=== PATIENT | male | born 1975 | race Hispanic/Latino ===

== ENCOUNTER 2017-06-12 11:13 | Outpatient (CLI) | payer MEDICARE ==
[~2017-06-12 11:13] MED LIST: Sodium Chloride 0.9% 15 ML NEB ONE
--- NOTE | 2017-06-12 16:05 | PRG ---
DATE OF SERVICE: 06/12/2017 HISTORY: Mr. Wilbert Ayala is a very pleasant 42-year-old gentleman who presents to the Wound Center for evaluation of an ulceration of the plantar surface of the left forefoot. The patient was recen tly seen by Dr. Joel Collins of Infectious Diseases. The patient states that IV antibiotics have b een discontinued. Apparently, plain films were reviewed at that time the patient was seen by Infect ious Diseases. Since the patient's last visit to the Wound Center, Mr. Ayala was admitted to [facility] with volume overload, which resolved with [id number] dialysis. The p atient states that he continues to receive dressing changes with the assistance of Home Health. The patient was previously seen by the radio time salesperson for fitting with diabetic shoes with inserts. PHYSICAL EXAMINATION: VITAL SIGNS: Temperature 98.0, pulse 100, respirations 18 and blood pressure 185/100. Accu-Chek 11 8. EXTREMITIES: An ulceration of the plantar surface of the left forefoot is still present. The dimen sions of the wound are approximately 0.9 x 0.8 cm. Purulent appearing drainage associated with the wound was sent for aerobic and anaerobic cultures. The sanguinous drainage associated with the woun d appeared to contain purulent material. The depth of the wound is approximately 2.6 cm on exam tod ay. No erythema of the skin surrounding the wound is present. No maceration of the skin of the per iwound is noted. Mild edema of the left foot is noted on exam today. ASSESSMENT AND PLAN: 1. Plantar ulceration of the left forefoot as described above. Dressing changes of Silverlon Rope 4 x 4s, Kerlix, and an Jae bandage will be initiated today. These dressing changes are to be perfor med 3 times per week after cleansing and irrigation with the assistance of Home Health. I have disc ussed the treatment plan with Dr. Joel Collins of Infectious Diseases. The patient will be seen in consultation by Dr. Collins next week. The patient will be contacted by the office of Dr. Collins in [facility] to the date and time of his appointment. I will see Mr. Ayala again after his evaluation by Infectious Diseases. 2. Diabetes mellitus. The patient's Accu-Chek in clinic today is 118. The patient has been remind ed that for optimal wound healing, his blood glucoses should remain below 150. 3. Hypertension. 4. End-stage renal disease. 5. Seizure disorder.
== END 2017-06-12 11:14 | disposition home or self-care (01) ==
LOC: WCC 11:13
PROVIDERS: ATTEND Family Medicine
DX: L97.529 Non-pressure chronic ulcer of other part of left foot with unspecified severity (principal); E11.621 Type 2 diabetes mellitus with foot ulcer; I12.0 Hypertensive chronic kidney disease with stage 5 chronic kidney disease or end stage renal disease; E11.22 Type 2 diabetes mellitus with diabetic chronic kidney disease; N18.6 End stage renal disease; G40.909 Epilepsy, unspecified, not intractable, without status epilepticus
CPT/HCPCS: 87070; 87075; 87077; 87205; 97139; G0463; 87186; 99213; A4218

== ENCOUNTER 2017-06-19 11:20 | Outpatient (CLI) | payer MEDICARE ==
--- NOTE | 2017-06-19 13:53 | PRG ---
DATE OF SERVICE: 06/19/2017 HISTORY: Mr. Wilbert Ayala is a very pleasant 42-year-old gentleman, who presents to the [facility] for evaluation of an ulceration of the plantar surface of the left forefoot. The patient stated a t the time of his last visit that IV antibiotics have been discontinued by Dr. Joel Collins of Infe ctious Diseases. The patient was receiving IV antibiotics at dialysis. Arrangements were made for the patient to be seen by Dr. Collins. Unfortunately, the patient failed to keep his appointment. Th e patient continues to receive dressing changes with the assistance of Home Health. The patient has also been seen by the tire design engineer for fitting with diabetic shoes with inserts. PHYSICAL EXAMINATION: VITAL SIGNS: Temperature 97.6, pulse 95, respirations 18, blood pressure 185/105. Accu-Chek 108. EXTREMITIES: An ulceration of the plantar surface of the left forefoot is still present. The dimen sions of the wound are approximately 0.6 x 0.6 cm. The depth of the wound is approximately 1.6 cm o n exam today. The depth of the wound at the time of the patient's last visit was approximately 2.6 cm. The dimensions of the wound at the time of the patient's last visit were approximately 0.9 x 0. 8 cm. Granulation tissue is present within the wound margins. No purulent drainage is associated w ith the wound on today's exam. No erythema of the skin surrounding the wound is present. No macera tion of the skin of the periwound is noted. No significant edema of the left foot is present on exa m today. ASSESSMENT AND PLAN: 1. Plantar ulceration of left forefoot as described above. Dressing changes of Silverlon Rope 4 x 4s, Kerlix, and an Jae bandage will be continued 3 times per week after cleansing and irrigation wit h the assistance of Home Health. Arrangements will be made again for the patient to be seen in cons ultation by Dr. Joel Collins of Infectious Diseases. The patient's mother or sister will be contac pratima in regard to the date and time of the patient's appointment with Dr. Collins. I will see Mr. Ctay atkins again after his evaluation by Infectious Diseases. 2. Diabetes mellitus. The patient's Accu-Chek in clinic today is 108. The patient has been remind ed that for optimal wound healing, his blood glucoses should remain below 150. 3. Hypertension. 4. End-stage renal disease. 5. Seizure disorder.
[2017-06-19] MEDS ORDERED: Sodium Chloride 0.9% 15 ML NEB ONE (16:24)
== END 2017-06-19 11:21 | disposition home or self-care (01) ==
LOC: WCC 11:20
PROVIDERS: ATTEND Family Medicine
DX: E11.621 Type 2 diabetes mellitus with foot ulcer (principal); L97.429 Non-pressure chronic ulcer of left heel and midfoot with unspecified severity; E11.22 Type 2 diabetes mellitus with diabetic chronic kidney disease; I12.0 Hypertensive chronic kidney disease with stage 5 chronic kidney disease or end stage renal disease; N18.6 End stage renal disease; R56.9 Unspecified convulsions
CPT/HCPCS: 97602; A4218

== ENCOUNTER 2017-07-17 11:37 | Outpatient (CLI) | payer MEDICARE ==
--- NOTE | 2017-07-17 17:08 | PRG ---
DATE OF SERVICE: 07/17/2017 HISTORY: Mr. Wilbert Ayala is a very pleasant 42-year-old gentleman who presents to the Wound Center for evaluation of an ulceration of the plantar surface of the left forefoot. The patient has completed a course of IV antibiotics as per Dr. Joel Collins of Infectious Diseases. Arrangements were made for the patient to be seen by Dr. Collins. Unfortunately, the patient has been unable to keep his appointment on 2 occasions. The patient continues to receive dressing changes with the assistance of Home Health. The patient has also been seen by the shoe lacer for fitting with diabetic shoes with inserts. PHYSICAL EXAMINATION: VITAL SIGNS: Temperature 97.6, pulse 90, respirations 18, blood pressure 197/ 103. Accu-Chek 98. EXTREMITIES: An ulceration of the plantar surface of the left forefoot is still present. The dimensions of the wound are approximately 0.9 x 0.9 cm. The dimensions of the wound at the time of the patient's last visit were approximately 0.6 x 0.6 cm. Callus, undermining, and desiccated tissue associated with the wound were eliminated with an excisional full-thickness debridement with the use of scissors. No purulent drainage is associated with the wound. No erythema of the skin surrounding the wound is present. No maceration of the skin of the periwound is noted. A dorsalis pedis pulse is palpable on the left and on the right. No significant edema of the left foot is present on exam today. ASSESSMENT AND PLAN: 1. Plantar ulceration of left forefoot as described above. Dressing changes of Silverlon, 4 x 4s, Kerlix, and an Jae bandage will be continued 3 times per week after cleansing and irrigation with the assistance of Home Health. The ulceration has markedly improved in its appearance since the patient's last visit. I will see Mr. Ayala again in 2 weeks. The patient is in the process of obtaining diabetic shoes with inserts. He, as stated above, has been seen by the shoe lacer. 2. Diabetes mellitus. The patient's Accu-Chek in clinic today is 98. The patient has been reminded that for optimal wound healing, his blood glucoses should remain below 150. 3. Hypertension. 4. End-stage renal disease. 5. Seizure disorder. [facility]
[2017-07-17] MEDS ORDERED: Sodium Chloride 0.9% 15 ML NEB ONE (17:53)
== END 2017-07-17 11:38 | disposition home or self-care (01) ==
LOC: WCC 11:37
PROVIDERS: ATTEND Family Medicine
DX: E11.621 Type 2 diabetes mellitus with foot ulcer (principal); L97.529 Non-pressure chronic ulcer of other part of left foot with unspecified severity; E11.22 Type 2 diabetes mellitus with diabetic chronic kidney disease; I12.0 Hypertensive chronic kidney disease with stage 5 chronic kidney disease or end stage renal disease; R56.9 Unspecified convulsions
CPT/HCPCS: 11042; A4218

== ENCOUNTER 2017-08-14 13:20 | Outpatient (CLI) | payer MEDICARE ==
--- NOTE | 2017-08-14 14:42 | PRG ---
DATE OF SERVICE: 08/14/2017 HISTORY: Mr. Wilbert Ayala is a very pleasant 42-year-old gentleman who presents to the Wound Center for evaluation of an ulceration of the plantar surface of the left forefoot. The patient has complet ed a course of IV antibiotics as per Dr. Joel Collins of Infectious Diseases. Arrangements were mad e for the patient to be seen by Dr. Collins; however. The patient was unable to keep his appointment o n 2 occasions. The patient continues to receive dressing changes with the assistance of Home Health. The patient has also been seen by the operations support manager for fitting with diabetic shoes with inserts. PHYSICAL EXAMINATION: VITAL SIGNS: Temperature 97.5, pulse 78, respirations 18, blood pressure 179/59. Accu-Chek 109. EXTREMITIES: An ulceration of the plantar surface of the left forefoot is still present. The dimens ions of the wound are approximately 0.5 x 0.3 cm. Callus associated with the wound was debrided with an excisional partial thickness debridement with the use of scissors. No purulent drainage is assoc iated with the wound. No erythema of the skin surrounding the wound is present. No maceration of th e skin of the periwound is noted. A dorsalis pedis pulse is palpable on the left. No significant ed manish of the left foot is present on exam today. ASSESSMENT AND PLAN: 1. Plantar ulceration of left forefoot as described above, callus associated with the wound was debr ided with an excisional partial thickness debridement with the use of scissors in clinic today. Dres sing changes by Home Health will be discontinued. The patient has been instructed to keep his newly healed wound clean and dry and covered with a diabetic sock. I will see Mr. Ayala in one week. At this time, the patient will also be seen by the operations support manager. 2. Diabetes mellitus. The patient's Accu-Chek in clinic today is 109. The patient has been reminde d that for optimal wound healing, his blood glucoses should remain below 150. 3. Hypertension. 4. End-stage renal disease. 5. Seizure disorder.
[2017-08-14] MEDS ORDERED: Sodium Chloride 0.9% 15 ML NEB ONE (17:25)
[2017-08-14] MEDS ORDERED: Lidocaine 2% Jelly 5 ML TUBE ONE (17:25)
== END 2017-08-14 13:21 | disposition home or self-care (01) ==
LOC: WCC 13:20
PROVIDERS: ATTEND Family Medicine
DX: E11.621 Type 2 diabetes mellitus with foot ulcer (principal); L97.429 Non-pressure chronic ulcer of left heel and midfoot with unspecified severity; E11.22 Type 2 diabetes mellitus with diabetic chronic kidney disease; I12.0 Hypertensive chronic kidney disease with stage 5 chronic kidney disease or end stage renal disease; N18.6 End stage renal disease; G40.909 Epilepsy, unspecified, not intractable, without status epilepticus
CPT/HCPCS: 97597; A4218

== ENCOUNTER 2017-10-31 16:55 | Emergency (ER) | payer MEDICARE, MEDICAID ==
[2017-10-31] MEDS ORDERED: ISOVUE-370 76%-LOCM 1 ML ONE (17:23)
[2017-10-31 17:56] LABS: Hemoglobin 14.3 g/dL (14.0-18.0); Mean Corpuscular HGB CONC 33.4 g/dL (32.0-36.0); Mean Platelet Volume 7.3 fL (7.4-10.4); Platelet Count 168 thou/uL (130-400); RBC Distribution Width 13.2 % (11.5-14.5); Red Blood Cell (RBC) Count 4.09 mill/uL (4.70-6.10); White Blood Cell (WBC) Count 4.8 thou/uL (4.8-10.8)
[2017-10-31 18:17] LABS: #Eosinphils 0.2 thou/uL (0.0-0.7); #Monocytes 0.4 thou/uL (0.11-0.59); #Neutrophils 3.2 thou/uL (1.40-6.50); %Basophils 0.4 % (0.0-1.0); %Eosinophils 4.9 % (0.0-10.0); %Monocytes 7.6 % (0.0-10.0); %Neutrophils 66.1 % (42.0-75.0); MDiff Complete? YES; Macrocytosis SLIGHT = 6-15 cells (100X) (0-5/hpf)
[2017-10-31 18:22] LABS: CKMB 2.4 ng/mL (0-6.6); Troponin I 0.044 ng/mL (< 0.028)
[2017-10-31 18:36] LABS: ALT (SGPT) 16 U/L (8-55); AST (SGOT) 19 U/L (5-34); Albumin 4.2 g/dL (3.5-5.0); Alkaline Phosphatase 157 U/L (40-150); Anion Gap 15 mmol/L (10-20); BUN (Urea Nitrogen) 28 mg/dL (8.9-20.6); Bilirubin, Total 0.6 mg/dL (0.2-1.2); CK (CPK) 115 U/L (30-200); Calc. Creatinine Clearance 0 mL/min (70-130); Calcium 9.6 mg/dL (7.8-10.44); Carbon Dioxide 33 mmol/L (22-29); Chloride 96 mmol/L (98-107); Estimated GFR-MDRD 14; Globulin 4.1 g/dL (2.4-3.5); Glucose 106 mg/dL (70-105); Lipase 33 U/L (8-78); Potassium 4.9 mmol/L (3.5-5.1); Protein, Total 8.3 g/dL (6.0-8.3); Sodium 139 mmol/L (136-145)
--- NOTE | 2017-10-31 18:54 | RAD ---
FRONTAL VIEW CHEST 10/31/17 COMPARISON: 05/22/17 INDICATION: Chest pain. FINDINGS: There is no new consolidation, effusion, or pneumothorax. Lungs are grossly stable appearing to 7 exam. Cardiac silhouette is accentuated by portable technique. IMPRESSION: Stable chest without new consolidation. The previously mentioned interstitial opacities are grossly s table. POS: [facility]
[2017-10-31] MEDS ORDERED: hydrALAZINE 20 MG/ML VIAL ONE (19:26)
[2017-10-31] MEDS ORDERED: Acetaminophen 500 MG TAB ONE (19:26)
--- NOTE | 2017-10-31 20:47 | CT ---
ABDOMEN AND PELVIS CT WITH CONTRAST 10/31/17 INDICATION; Hypertension, abdominal pain. FINDINGS: No prior comparison is available. No significant pathology of the imaged lung bases. There is a small peripherally oriented calcificati on which may be vascular in etiology at the posteromedial left lung base. There is a mild generalized heterogeneous enhancement of the liver, nonspecific. Punctate granulomatous calcification of the spl een present. There are vascular calcifications of the kidneys as well of the splenic arteries and sca ttered about the aorta and branch vessels. The kidneys are atrophic without hydronephrosis. No adrena l mass. No peripancreatic inflammation. There is incomplete assessment of the bowel without enteric c ontrast. There is moderate retained fecal material throughout the colon. There is an inferior vena ca va filter in place, infrarenal in location. No free air visualized. There is wall prominence of the u rinary bladder. Mild soft tissue edema is seen overlying each greater trochanter. IMPRESSION: 1. Wall thickening of the urinary bladder. Recommend clinical correlation and urinary laboratory values to exclude possibility of cystitis. 2. Incomplete assessment of the bowel. 3. Mild heterogeneity of the liver. Correlate with liver function enzymes. 4. Diffuse vascular disease in a pattern predominantly indicative of arteriosclerosis. POS: [facility]
--- NOTE | 2017-11-08 17:05 | EKG ---
Test Reason : Blood Pressure : / mmHG Vent. Rate : 066 BPM Atrial Rate : 066 BPM P-R Int : 170 ms QRS Dur : 088 ms QT Int : 440 ms P-R-T Axes : 069 -07 083 degrees QTc Int : 461 ms Normal sinus rhythm Possible Left atrial enlargement Left ventricular hypertrophy Abnormal ECG Confirmed by KATHLEEN KITCHEN D.O. ([id number]), material expeditor SEPIDEH MCLEOD ([id number]) on 11/08/2017 5:04:15 PM Referred By: Confirmed By:KATHLEEN KITCHEN D.O.
== END 2017-10-31 21:28 | disposition home or self-care (01) ==
LOC: ERS 16:55
DX: I12.0 Hypertensive chronic kidney disease with stage 5 chronic kidney disease or end stage renal disease (principal); E11.22 Type 2 diabetes mellitus with diabetic chronic kidney disease; N18.6 End stage renal disease; B35.4 Tinea corporis; Z89.421 Acquired absence of other right toe(s); Z99.2 Dependence on renal dialysis; Z79.899 Other long term (current) drug therapy
CPT/HCPCS: 71045; 74177; 80053; 82550; 82553; 83690; 84484; 85025; 93005; 96374; J0360

== ENCOUNTER 2017-11-03 16:36 | Emergency (ER) | payer MEDICARE ==
[2017-11-03] MEDS ORDERED: Acetaminophen 325 MG TAB ONE (18:06)
== END 2017-11-03 20:00 | disposition home or self-care (01) ==
LOC: ERS 16:36
DX: S01.512A Laceration without foreign body of oral cavity, initial encounter (principal); G40.909 Epilepsy, unspecified, not intractable, without status epilepticus; E11.9 Type 2 diabetes mellitus without complications; Z79.4 Long term (current) use of insulin; Z79.899 Other long term (current) drug therapy
CPT/HCPCS: 36415; 80185; 94760

== ENCOUNTER 2017-11-13 10:13 | Outpatient (CLI) | payer MEDICARE ==
--- NOTE | 2017-11-13 12:21 | PRG ---
DATE OF SERVICE: 11/13/2017 HISTORY: Mr. Wilbert Ayala is a very pleasant 42-year-old gentleman who presents to the Wound Center for evaluation of an ulceration of the plantar surface of the right forefoot. The patient was last s een in the Wound Center on 08/14/2017 for an ulceration of the plantar surface of the left forefoot. This ulceration has healed completely and remains healed. The patient states he has not yet receive d his diabetic shoes with inserts. The patient has no other complaints today. He denies any fever o r chills. PHYSICAL EXAMINATION: VITAL SIGNS: Temperature 97.6, pulse 81, respirations 18, blood pressure 109/60. Accu-Chek 106. EXTREMITIES: An ulceration of the plantar surface of the right forefoot is present. Necrotic and no nviable tissue present within the wound margins was debrided with an excisional full-thickness debrid ement with the use of scissors. A small amount of purulent drainage is associated with the wound, wh ich was sent for aerobic and anaerobic cultures. No erythema of the skin surrounding the wound is pr esent. No maceration of the skin of the periwound is noted. A dorsalis pedis pulse is easily palpab le on the right. No significant edema of the right foot is present on exam today. ASSESSMENT AND PLAN: 1. Plantar ulceration of right forefoot as described above. Dressing changes of Silverlon and borde red gauze will be initiated today. These dressing changes are to be performed 3 times per week after cleansing and irrigation with the assistance of Home Health. I will see Mr. Ayala again on 018. At this time, the patient will also be seen by the religious activities director. 2. Diabetes mellitus. The patient's Accu-Chek in clinic today is 106. The patient has been reminde d that for optimal wound healing, his blood glucoses should remain below 150. 3. Hypertension. 4. End-stage renal disease. 5. Seizure disorder.
== END 2017-11-13 10:14 | disposition home or self-care (01) ==
LOC: WCC 10:13
PROVIDERS: ATTEND Family Medicine
DX: E11.621 Type 2 diabetes mellitus with foot ulcer (principal); L97.419 Non-pressure chronic ulcer of right heel and midfoot with unspecified severity; E11.22 Type 2 diabetes mellitus with diabetic chronic kidney disease; I12.0 Hypertensive chronic kidney disease with stage 5 chronic kidney disease or end stage renal disease; N18.6 End stage renal disease; G40.909 Epilepsy, unspecified, not intractable, without status epilepticus
CPT/HCPCS: 87070; 87077; 87186; 87205

== ENCOUNTER 2017-12-28 22:06 | Emergency (ER) | payer MEDICARE ==
--- NOTE | 2017-12-28 23:36 | RAD ---
SINGLE VIEW OF THE PELVIS: Comparison: None. History: Right hip pain. FINDINGS: Single view of the pelvis shows no evidence of acute fracture or dislocation. No degenerative changes are seen in the hip. No focal soft tissue swelling is seen. Vascular calcifications are present. IMPRESSION: No evidence of acute osseous abnormality. POS: [facility]
[2017-12-29 01:05] LABS: #Eosinphils 0.1 thou/uL (0.0-0.7); #Lymphocytes 1.3 thou/uL (1.20-3.40); #Monocytes 0.5 thou/uL (0.11-0.59); #Neutrophils 3.4 thou/uL (1.40-6.50); %Basophils 0.4 % (0.0-1.0); %Eosinophils 2.4 % (0.0-10.0); %Lymphocytes 24.2 % (21.0-51.0); %Monocytes 8.6 % (0.0-10.0); %Neutrophils 64.4 % (42.0-75.0); Hemoglobin 9.5 g/dL (14.0-18.0); Mean Corpuscular HGB CONC 32.9 g/dL (32.0-36.0); Platelet Count 222 thou/uL (130-400); RBC Distribution Width 14.9 % (11.5-14.5); Red Blood Cell (RBC) Count 2.81 mill/uL (4.70-6.10); White Blood Cell (WBC) Count 5.3 thou/uL (4.8-10.8)
[2017-12-29 01:26] LABS: ALT (SGPT) 19 U/L (8-55); AST (SGOT) 10 U/L (5-34); Albumin 3.4 g/dL (3.5-5.0); Alkaline Phosphatase 142 U/L (40-150); Anion Gap 20 mmol/L (10-20); BUN (Urea Nitrogen) 62 mg/dL (8.9-20.6); Bilirubin, Total 0.4 mg/dL (0.2-1.2); Calc. Creatinine Clearance 0 mL/min (70-130); Calcium 8.9 mg/dL (7.8-10.44); Carbon Dioxide 24 mmol/L (22-29); Chloride 98 mmol/L (98-107); Estimated GFR-MDRD 6; Globulin 3.4 g/dL (2.4-3.5); Glucose 96 mg/dL (70-105); Potassium 4.9 mmol/L (3.5-5.1); Protein, Total 6.8 g/dL (6.0-8.3); Sodium 137 mmol/L (136-145)
[2017-12-29] MEDS ORDERED: Morphine 4 MG/ML VIAL ONE (01:35)
[2017-12-29] MEDS ORDERED: Ondansetron ODT 4 MG TAB ONE (04:21)
--- NOTE | 2017-12-29 09:08 | CT ---
PRELIMINARY REPORT/[facility]/EMERGENTY AFTER-HOURS PROCEDURE CT Pelvis With Intravenous Contrast EXAM DATE/TIME: Exam ordered 12/29/2017 1:44 AM CLINICAL HISTORY: 42 years old, male; Pain; Hip pain; Right hip TECHNIQUE: Axial computed tomography images of the pelvis with intravenous contrast. CONTRAST: 100 mL of ISOVUE administered intravenously. COMPARISON: No relevant prior studies available. FINDINGS: Bowel: Normal. No obstruction. No mucosal thickening. Appendix: No findings to suggest acute appendicitis. Intraperitoneal space: Normal. No free air. No significant fluid collection. Bladder: Normal. No mass. Reproductive: Unremarkable as visualized. Bones/joints: No acute fracture. No dislocation. Soft tissues: Normal. Vasculature: An inferior vena cava filter is present. Extensive vascular calcification is present. No lower abdominal aortic aneurysm. Lymph nodes: Normal. No enlarged lymph nodes. IMPRESSION: No acute RIGHT hip fracture or other pathology. Thank you for allowing us to participate in the care of your patient. Dictated and Authenticated by: Andrade Estrada MD 12/29/2017 2:21 AM Central Time ([place] & [place]) FINAL REPORT CT OF PELVIS PERFORMED WITH INTRAVENOUS CONTRAST ENHANCEMENT: HISTORY: Patient with right-sided hip pain. History of dialysis. FINDINGS: There are fairly extensive vascular calcifications. Bladder wall appears somewhat thickened. The pr ostate is not significantly enlarged. No significant pelvic lymphadenopathy noted. There are some minimal arthritic changes of the hip. There are no signs of any fracture. There is n o evidence for avascular necrosis. IMPRESSION: 1. No evidence of hip fracture. 2. Suggestion of some mild bladder wall thickening. 3. Extensive vascular calcifications. 4. This report is in agreement with the temporary report issued by [facility]. POS: [facility]
[2017-12-29] MEDS ORDERED: ISOVUE-370 76%-LOCM 1 ML ONE (15:48)
== END 2017-12-29 03:00 | disposition home or self-care (01) ==
LOC: ERS 22:06
DX: M25.551 Pain in right hip (principal); G89.29 Other chronic pain; E11.9 Type 2 diabetes mellitus without complications; Z99.2 Dependence on renal dialysis; Z79.4 Long term (current) use of insulin; Z79.899 Other long term (current) drug therapy
CPT/HCPCS: 36415; 72170; 72193; 80053; 85025; 86140; 96374; J2270; Q0162

== ENCOUNTER 2017-12-31 09:33 | Emergency (ER) | payer MEDICARE ==
[2017-12-31] MEDS ORDERED: Morphine 4 MG/ML VIAL ONE (11:34)
[2017-12-31] MEDS ORDERED: Acetaminophen 325 MG TAB ONE (11:35)
== END 2017-12-31 12:48 | disposition home or self-care (01) ==
LOC: ERS 09:33
DX: M25.551 Pain in right hip (principal); Z99.2 Dependence on renal dialysis; Z79.899 Other long term (current) drug therapy; E11.22 Type 2 diabetes mellitus with diabetic chronic kidney disease
CPT/HCPCS: 96374; J2270

== ENCOUNTER 2018-01-08 11:47 | Outpatient (CLI) | payer MEDICARE ==
--- NOTE | 2018-01-08 14:37 | PRG ---
DATE OF SERVICE: 01/08/2018 HISTORY: Mr. Wilbert Ayala is a very pleasant 42-year-old gentleman, who presents to the Wound Center for evaluation of a callus of the plantar surface of the right forefoot. The patient was previously seen in the Wound Center on 08/14/2017 for an ulceration of the plantar surface of the left forefoot . This ulceration has healed completely and remains healed. The patient states he is still in the p rocess of receiving his diabetic shoes with inserts. The patient has no other complaints today. He denies any fever or chills. PHYSICAL EXAMINATION: VITAL SIGNS: Temperature 97.5, pulse 77, respirations 16, blood pressure 187/92. Accu-Chek 108. EXTREMITIES: Callus over the plantar surface of the right forefoot is present, which measures approx imately 3.0 x 2.0 cm. The callus is located over the third and fourth metatarsal heads. Callus over lying the head of the third and fourth metatarsals was excised with a partial-thickness debridement w ith the use of scissors. No erythema of the skin of the plantar surface of the right foot is present . No maceration of the skin of the plantar surface of the right foot is present. A dorsalis pedis p ulse is palpable on the right. No significant edema of the right foot is present on exam today. ASSESSMENT AND PLAN: 1. Callus of the right forefoot as described above. The callus located over the head of the third a nd fourth metatarsals was excised with an excisional partial-thickness debridement with the use of sc issors in clinic today. For the wound of the plantar surface of the right foot subsequent to callus excision, dressing changes of Silverlon and bordered gauze are to be performed 3 times per week after cleansing and irrigation with the assistance of home health. I will see Mr. Ayala again in 2 weeks . As stated above, the patient is still in the process of obtaining diabetic shoes with inserts. 2. Diabetes mellitus. The patient's Accu-Chek in clinic today is 108. The patient has been reminde d that for optimal wound healing, his blood glucoses should remain below 150. 3. Hypertension. 4. End-stage renal disease. 5. Seizure disorder.
== END 2018-01-08 11:48 | disposition home or self-care (01) ==
LOC: WCC 11:47
PROVIDERS: ATTEND Family Medicine
DX: T81.89XD Other complications of procedures, not elsewhere classified, subsequent encounter (principal); M25.774 Osteophyte, right foot; E11.22 Type 2 diabetes mellitus with diabetic chronic kidney disease; I12.0 Hypertensive chronic kidney disease with stage 5 chronic kidney disease or end stage renal disease; N18.6 End stage renal disease; G40.909 Epilepsy, unspecified, not intractable, without status epilepticus
CPT/HCPCS: 97597

== ENCOUNTER 2018-01-22 11:02 | Outpatient (CLI) | payer MEDICARE ==
--- NOTE | 2018-01-22 14:33 | PRG ---
DATE OF SERVICE: 01/22/2018 HISTORY: Mr. Wilbert Ayala is a very pleasant 42-year-old gentleman who presents to the Wound Center for evaluation of an ulceration of the plantar surface of the left forefoot. The patient was last se en in the Wound Center on 01/08/2018 for callus on the plantar surface of the right forefoot. Again, the patient states he is still in the process of receiving his diabetic shoes with inserts. Mr. Phan murphy has no other complaints today. He denies any fever or chills. PHYSICAL EXAMINATION: VITAL SIGNS: Temperature 97.7, pulse 76, respirations 19, blood pressure 173/87. Accu-Chek 112. EXTREMITIES: An ulceration over the plantar surface of the left forefoot is present. Necrotic and n onviable tissue present within the wound margins was debrided with an excisional full-thickness debri adina with the use of scissors. Callus and undermining at the periphery of the wound were eliminate d with the use of scissors. No purulent drainage is associated with the wound. No erythema of the s kin surrounding the wound is present. No maceration of the skin of the periwound is noted. No signi ficant edema of the left foot is present on exam today. ASSESSMENT AND PLAN: 1. Ulceration of left forefoot as described above. Dressing changes of Silverlon and bordered gauze are to be performed 3 times per week after cleansing and irrigation with the assistance of Home Heal th. I will see Mr. Ayala again on 02/18/2018. At this time, Mr. Ayala will also be seen by the diogenes romo. 2. Diabetes mellitus. The patient's Accu-Chek in clinic today is 112. The patient has been reminde d that for optimal wound healing, his blood glucoses should remain below 150. 3. Hypertension. 4. End-stage renal disease. 5. Seizure disorder.
== END 2018-01-22 11:03 | disposition home or self-care (01) ==
LOC: WCC 11:02
PROVIDERS: ATTEND Family Medicine
DX: E11.621 Type 2 diabetes mellitus with foot ulcer (principal); L97.529 Non-pressure chronic ulcer of other part of left foot with unspecified severity; E11.22 Type 2 diabetes mellitus with diabetic chronic kidney disease; I12.0 Hypertensive chronic kidney disease with stage 5 chronic kidney disease or end stage renal disease; N18.6 End stage renal disease; G40.909 Epilepsy, unspecified, not intractable, without status epilepticus
CPT/HCPCS: 11042

== ENCOUNTER 2018-02-18 08:22 | Outpatient (CLI) | payer MEDICARE ==
--- NOTE | 2018-02-18 11:19 | PRG ---
DATE OF SERVICE: 02/18/2018 HISTORY: Mr. Wilbert Ayala is a very pleasant 42-year-old gentleman who presents to the Wound Center for evaluation of an ulceration of the plantar surface of the right forefoot. The patient also has a callus over the plantar surface of the left forefoot. The patient states he has been receiving dres sing changes of Silverlon for the ulceration of the plantar surface of the right forefoot with the as sistance of Home Health. The patient states he is still in the process of receiving his diabetic ernesto es with inserts. He states that he has recently changed primary care physician. The patient has no other complaints today. He denies any fever or chills. PHYSICAL EXAMINATION: VITAL SIGNS: Temperature 97.6, pulse 79, respirations 18, blood pressure 96/65, Accu-Chek 108. EXTREMITIES: An ulceration over the plantar surface of the right forefoot is present. Necrotic and nonviable tissue present within the wound margins was debrided with an excisional full-thickness debr idement with the use of scissors. Callus and undermining at the periphery of the wound were eliminat ed with the use of scissors. No purulent drainage is associated with the wound. No erythema of the skin surrounding the wound is present. No maceration of the skin of the periwound is noted. No sign ificant edema of the right foot is present on exam today. The callus over the plantar surface of the left forefoot was excised with the use of scissors. ASSESSMENT AND PLAN: 1. Ulceration of right forefoot as described above. A callus over the plantar surface of the left f orefoot was also noted on exam today. Dressing changes of Silverlon and bordered gauze will be anika nued 3 times per week after cleansing and irrigation with the assistance of Home Health. I will see Mr. Ayala again on 03/25/2018. At this time, the patient will also be seen by the towel inspector. The patient's new primary care physician will be contacted in regard to the paperwork for obtaining diabe tic shoes with inserts. 2. Diabetes mellitus. The patient's Accu-Chek in clinic today is 108. The patient has been reminde d that for optimal wound healing, his blood glucoses should remain below 150. 3. Hypertension. 4. End-stage renal disease. 5. Seizure disorder.
[2018-02-19] MEDS ORDERED: Lidocaine 2% Jelly 5 ML TUBE ONE (15:08)
[2018-02-19] MEDS ORDERED: Sodium Chloride 0.9% 15 ML NEB ONE (15:08)
== END 2018-02-18 08:23 | disposition home or self-care (01) ==
LOC: WCC 08:22
PROVIDERS: ATTEND Family Medicine
DX: E11.621 Type 2 diabetes mellitus with foot ulcer (principal); L97.419 Non-pressure chronic ulcer of right heel and midfoot with unspecified severity; E11.22 Type 2 diabetes mellitus with diabetic chronic kidney disease; I12.0 Hypertensive chronic kidney disease with stage 5 chronic kidney disease or end stage renal disease; N18.6 End stage renal disease; G40.909 Epilepsy, unspecified, not intractable, without status epilepticus

== ENCOUNTER 2018-03-25 07:58 | Outpatient (CLI) | payer MEDICARE ==
--- NOTE | 2018-03-25 10:41 | PRG ---
DATE OF SERVICE: 03/25/2018 HISTORY: Mr. Wilbert Ayala is a very pleasant 43-year-old gentleman who presents to the [facility] for evaluation of an ulceration of the plantar surface of the right forefoot. The patient has been r eceiving dressing changes of Silverlon for the ulceration of the plantar surface of the right forefoo t with the assistance of Home Health. The patient states he has not yet received his diabetic shoes with inserts. The patient has no other complaints today. He denies any fever or chills. PHYSICAL EXAMINATION: VITAL SIGNS: Temperature 97.5, pulse 75, blood pressure 190/91, Accu-Chek 108. EXTREMITIES: An ulceration over the plantar surface of the right forefoot is present which measures approximately 4.0 x 3.0 cm. Granulation tissue is present within the wound margins. Necrotic and no nviable tissue present within the wound margins was debrided with an excisional full-thickness debrid ement with the use of scissors and a curette. Callus and undermining at the periphery of the wound w ere eliminated with the use of scissors. No purulent drainage is associated with the wound. No eryt cathy of the skin surrounding the wound is present. Maceration of the skin of the periwound is noted. A dorsalis pedis pulse is palpable on the right. No significant edema of the right foot is present on exam today. ASSESSMENT AND PLAN: 1. Ulceration of right forefoot as described above. Dressing changes of Silverlon and bordered gauz e will be continued 3 times per week after cleansing and irrigation with the assistance of Home Healt h. I will see Mr. Ayala again in 3 weeks. At this time, the patient will also be seen by the marty eugene. The patient states he will schedule an appointment to be seen by his primary care physician, which will be necessary for him to obtain his diabetic shoes with inserts. 2. Diabetes mellitus. The patient's Accu-Chek in clinic today is 108. The patient has been reminde d that for optimal wound healing, his blood glucoses should remain below 150. 3. Hypertension. 4. End-stage renal disease. 5. Seizure disorder.
== END 2018-03-25 07:59 | disposition home or self-care (01) ==
LOC: WCC 07:58
PROVIDERS: ATTEND Family Medicine
DX: E11.621 Type 2 diabetes mellitus with foot ulcer (principal); L97.419 Non-pressure chronic ulcer of right heel and midfoot with unspecified severity; E11.22 Type 2 diabetes mellitus with diabetic chronic kidney disease; I12.0 Hypertensive chronic kidney disease with stage 5 chronic kidney disease or end stage renal disease; N18.6 End stage renal disease; G40.909 Epilepsy, unspecified, not intractable, without status epilepticus
CPT/HCPCS: 11042

== ENCOUNTER 2018-04-15 07:53 | Outpatient (CLI) | payer MEDICARE ==
--- NOTE | 2018-04-15 09:39 | PRG ---
DATE OF SERVICE: 04/15/2018 HISTORY: Mr. Wilbert Ayala is a very pleasant 43-year-old gentleman who presents to the [facility] Center for evaluation of an ulceration of the plantar surface of the right forefoot. The patient has been r eceiving dressing changes of Silverlon for the ulceration of the plantar surface of the right forefoo t with the assistance of Home Health. The patient is still awaiting his diabetic shoes with inserts. The patient has no complaints today. He denies any fever or chills. PHYSICAL EXAMINATION: VITAL SIGNS: Temperature 97.6, pulse 78, respirations 21, blood pressure 198/94. Accu-Chek 107. EXTREMITIES: Ulceration over the plantar surface of the right forefoot is present which measures jeffry roximately 0.2 x 0.2 cm. Necrotic and nonviable tissue present within the wound margins was debrided with an excisional full-thickness debridement with the use of scissors and a curette. Callus and un dermining at the periphery of the wound were eliminated with the use of scissors. No purulent draina ge is associated with the wound. No erythema of the skin surrounding the wound is present. No macer ation of the skin of the periwound is noted. No significant edema of the right foot is present on ex am today. ASSESSMENT AND PLAN: 1. Ulceration of right forefoot as described above. Dressing changes of Silverlon and bordered gauz e will be continued 3 times per week after cleansing and irrigation with the assistance of Home Healt h. The wound has almost healed completely and Mr. Ayala will be discharged from clinic today with radha dillon on a p.r.n. basis. The patient has been told that he will receive dressing changes with the assistance of Home Health until the wound has completely healed. The patient previously scheduled th e required appointment with his primary care physician necessary for him to obtain his diabetic shoes with inserts. 2. Diabetes mellitus. The patient's Accu-Chek in clinic today is 107. The patient has been reminde d that for optimal wound healing, his blood glucoses should remain below 150. 3. Hypertension. 4. End-stage renal disease. 5. Seizure disorder.
== END 2018-04-15 07:54 | disposition home or self-care (01) ==
LOC: WCC 07:53
PROVIDERS: ATTEND Family Medicine
DX: E11.621 Type 2 diabetes mellitus with foot ulcer (principal); E11.22 Type 2 diabetes mellitus with diabetic chronic kidney disease; L97.519 Non-pressure chronic ulcer of other part of right foot with unspecified severity; I12.0 Hypertensive chronic kidney disease with stage 5 chronic kidney disease or end stage renal disease; N18.6 End stage renal disease; R56.9 Unspecified convulsions
CPT/HCPCS: 11042

== ENCOUNTER 2018-05-11 08:13 | Outpatient (CLI) | payer MEDICARE ==
--- NOTE | 2018-05-11 08:56 | PRG ---
DATE OF SERVICE: 05/11/2018 HISTORY: Mr. Wilbert Ayala is a very pleasant 43-year-old gentleman, who presents to the [facility]ound Center for evaluation of an ulceration of the plantar surface of the right forefoot. The patient has been receiving dressing changes of Silverlon for the ulceration of the plantar surface of the right forefo ot with the assistance of Home Health. Again, the patient states that he is awaiting his diabetic sh oes with inserts. Mr. Ayala has no other complaints today. He denies any fever or chills. PHYSICAL EXAMINATION: VITAL SIGNS: Temperature 97.8, pulse 82, respirations 22, blood pressure 171/82. Accu-Chek 109. EXTREMITIES: The ulceration over the plantar surface of the right forefoot has healed completely. C allus associated with the wound was debrided with an excisional partial-thickness debridement with th e use of scissors. ASSESSMENT AND PLAN: 1. Ulceration of right forefoot. As stated above, this wound has healed completely. Dressing pappas es of Silverlon and bordered gauze will be discontinued. The patient is to return to clinic on 05/27. At this time, Mr. Ayala will also be seen by the project development engineer. 2. Diabetes mellitus. The patient's Accu-Chek in clinic today is 109. 3. Hypertension. 4. End-stage renal disease. 5. Seizure disorder.
== END 2018-05-11 08:14 | disposition home or self-care (01) ==
LOC: WCC 08:13
PROVIDERS: ATTEND Family Medicine
DX: Z86.31 Personal history of diabetic foot ulcer (principal); E11.22 Type 2 diabetes mellitus with diabetic chronic kidney disease; N18.6 End stage renal disease; I12.0 Hypertensive chronic kidney disease with stage 5 chronic kidney disease or end stage renal disease; G40.909 Epilepsy, unspecified, not intractable, without status epilepticus

== ENCOUNTER 2018-06-17 07:41 | Outpatient (CLI) | payer MEDICARE ==
--- NOTE | 2018-06-17 09:02 | PRG ---
DATE OF SERVICE: 06/17/2018 HISTORY: Mr. Wilbert Ayala is a very pleasant 43-year-old gentleman who presents to the Wound Center for evaluation of a callus over the plantar surface of the right forefoot. The patient states he is utilizing his diabetic shoes with inserts consistently. The patient has no other complaints today. He denies any fever or chills. PHYSICAL EXAMINATION: VITAL SIGNS: Temperature 97.8, pulse 65, respirations 19, blood pressure 193/89. Accu-Chek 111. EXTREMITIES: The callus over the plantar surface of the right forefoot was debrided with an excision al partial-thickness debridement with the use of scissors. A dorsalis pedis pulse is palpable on the right and on the left. No open wounds are present over the right or left foot. ASSESSMENT AND PLAN: 1. Callus over the plantar surface of right forefoot. As stated above, the patient is utilizing his diabetic shoes with inserts consistently. The patient will be seen in the Wound Center again on an as needed basis. 2. Diabetes mellitus. The patient's Accu-Chek in clinic today is 111. 3. Hypertension. 4. End-stage renal disease. 5. Seizure disorder.
== END 2018-06-17 07:42 | disposition home or self-care (01) ==
LOC: WCC 07:41
PROVIDERS: ATTEND Family Medicine
DX: L84 Corns and callosities (principal); I12.0 Hypertensive chronic kidney disease with stage 5 chronic kidney disease or end stage renal disease; E11.22 Type 2 diabetes mellitus with diabetic chronic kidney disease; N18.6 End stage renal disease; G40.909 Epilepsy, unspecified, not intractable, without status epilepticus

== ENCOUNTER 2018-07-13 15:04 | Emergency (ER) | payer MEDICARE | END 2018-07-13 16:44 | disposition home or self-care (01) | LOC: ERS 15:04 | DX: F42.4 Excoriation (skin-picking) disorder (principal); R19.7 Diarrhea, unspecified; E11.9 Type 2 diabetes mellitus without complications | CPT/HCPCS: 99283 ==

== ENCOUNTER 2018-07-26 03:33 | Emergency (ER) | payer MEDICARE ==
[2018-07-26 04:22] LABS: #Eosinphils 0.1 thou/uL (0.0-0.7); #Lymphocytes 1.5 thou/uL (1.20-3.40); #Monocytes 0.3 thou/uL (0.11-0.59); #Neutrophils 2.1 thou/uL (1.40-6.50); %Basophils 0.4 % (0.0-1.0); %Eosinophils 2.6 % (0.0-10.0); %Lymphocytes 38.3 % (21.0-51.0); %Monocytes 7.8 % (0.0-10.0); %Neutrophils 50.9 % (42.0-75.0); Hemoglobin 10.1 g/dL (14.0-18.0); Mean Corpuscular HGB CONC 32.5 g/dL (32.0-36.0); Mean Corpuscular Hemoglobin 33.3 pg (27.0-31.0); Mean Platelet Volume 6.9 fL (7.4-10.4); Platelet Count 197 thou/uL (130-400); RBC Distribution Width 13.6 % (11.5-14.5); Red Blood Cell (RBC) Count 3.05 mill/uL (4.70-6.10)
[2018-07-26 04:43] LABS: Troponin I Less than 0.010 ng/mL (< 0.028)
[2018-07-26 05:25] LABS: ALT (SGPT) 17 U/L (8-55); AST (SGOT) 13 U/L (5-34); Albumin 3.7 g/dL (3.5-5.0); Alkaline Phosphatase 170 U/L (40-150); Anion Gap 16 mmol/L (10-20); BUN (Urea Nitrogen) 58 mg/dL (8.9-20.6); Bilirubin, Total 0.5 mg/dL (0.2-1.2); Calc. Creatinine Clearance 0 mL/min (70-130); Calcium 8.4 mg/dL (7.8-10.44); Carbon Dioxide 27 mmol/L (22-29); Chloride 100 mmol/L (98-107); Estimated GFR-MDRD 4; Globulin 3.4 g/dL (2.4-3.5); Glucose 105 mg/dL (70-105); Magnesium 2.4 mg/dL (1.6-2.6); Potassium 5.6 mmol/L (3.5-5.1); Protein, Total 7.1 g/dL (6.0-8.3); Sodium 137 mmol/L (136-145)
--- NOTE | 2018-07-26 09:14 | RAD ---
CHEST 2 VIEWS: Date: 07/26/18 HISTORY: Dyspnea. COMPARISON: Radiograph dated 10/31/17. FINDINGS: Heart size is enlarged. Mild pulmonary venous congestion. No pneumothorax. No effusion. IMPRESSION: Mild pulmonary venous congestion. POS: [facility]
== END 2018-07-26 06:25 | disposition home or self-care (01) ==
LOC: ERS 03:33
DX: N18.6 End stage renal disease (principal); E87.5 Hyperkalemia; E11.22 Type 2 diabetes mellitus with diabetic chronic kidney disease; Z99.2 Dependence on renal dialysis
CPT/HCPCS: 36415; 71046; 80053; 83735; 84484; 85025; 93005

== ENCOUNTER 2018-09-02 09:53 | Outpatient (CLI) | payer MEDICARE ==
--- NOTE | 2018-09-02 12:10 | PRG ---
DATE OF SERVICE: 09/02/2018 HISTORY: Mr. Wilbert Ayala is a very pleasant 43-year-old gentleman, who presents to the Wound Center for evaluation of a callus over the plantar surface of the right forefoot and a callus over the plantar surface of the left forefoot. The patient admits that he is not utilizing his diabetic shoes with inserts as consistently as in the past. The patient states he is still receiving visits by Home Health. The patient has no other complaints today. He denies any fever or chills. PHYSICAL EXAMINATION: VITAL SIGNS: Temperature 97.8, pulse 81, respirations 18, and blood pressure 186/88. Accu-Chek 118. EXTREMITIES: The callus over the plantar surface of the right forefoot was debrided with an excisional partial thickness debridement with the use of scissors. The callus over the plantar surface of the left forefoot was debrided with an excisional full-thickness debridement with the use of scissors. No purulent drainage is associated with the callus over the plantar surface of the left forefoot. No erythema of the skin surrounding the resulting wound is present. No maceration of the skin of the john-wound is noted. ASSESSMENT AND PLAN: 1. Callus over the plantar surface of the right forefoot. As stated above, debridement of the callus over the plantar surface of the left forefoot revealed the presence of an underlying ulceration. For this wound, dressing changes of Silvercel and bordered gauze are to be performed 3 times per week after cleansing and irrigation with the assistance of Home Health. The patient has been encouraged to utilize his diabetic shoes with inserts on a consistent basis. The patient states he will contact the Wound Center in order to schedule his next visit. 2. Diabetes mellitus. The patient's Accu-Chek in clinic today is 118. The patient has been told that for optimal wound healing his blood glucoses should remain below 150. 3. Hypertension. 4. End-stage renal disease. 5. Seizure disorder. Job ID: [id number]
[2018-09-02] MEDS ORDERED: Sodium Chloride 0.9% 15 ML NEB ONE (15:00)
== END 2018-09-02 09:54 | disposition home or self-care (01) ==
LOC: EDBD 09:53 → WCC 09:53
PROVIDERS: ATTEND Family Medicine
DX: L84 Corns and callosities (principal); E11.22 Type 2 diabetes mellitus with diabetic chronic kidney disease; N18.6 End stage renal disease; I10 Essential (primary) hypertension; R56.9 Unspecified convulsions
CPT/HCPCS: 11042; A4218

== ENCOUNTER 2018-10-19 16:38 | Inpatient (IN) | payer MEDICARE ==
[2018-10-19 17:37] LABS: #Eosinphils 0.1 thou/uL (0.0-0.7); #Lymphocytes 1.3 thou/uL (1.20-3.40); #Monocytes 0.4 thou/uL (0.11-0.59); #Neutrophils 3.1 thou/uL (1.40-6.50); %Basophils 0.3 % (0.0-1.0); %Eosinophils 1.1 % (0.0-10.0); %Lymphocytes 26.4 % (21.0-51.0); %Monocytes 8.5 % (0.0-10.0); %Neutrophils 63.7 % (42.0-75.0); Mean Corpuscular Hemoglobin 34.3 pg (27.0-31.0); Mean Platelet Volume 6.9 fL (7.4-10.4); Platelet Count 183 thou/uL (130-400); RBC Distribution Width 13.5 % (11.5-14.5); Red Blood Cell (RBC) Count 3.49 mill/uL (4.70-6.10); White Blood Cell (WBC) Count 4.9 thou/uL (4.8-10.8)
--- NOTE | 2018-10-19 17:48 | CT ---
CT BRAIN: HISTORY: Scalp wound. COMPARISON: CT brain from 07/27/2018 TECHNIQUE: Noncontrast enhanced CT images of the brain are obtained. FINDINGS: CT images of the brain demonstrate a previous right pterional craniotomy. The right scalp appears to be retracted in certain portions, adjacent to the craniotomy defect. There appears to be absence of some portions of the scalp, adjacent to the initial craniotomy positions. This is concerning for an open wound with communication with the underlying skull. Areas of the upper scalp incision, at its apex, appeared to have areas of some thickening. I do not see definite evidence of fluid collection to suggest a definite abscess. There is some calcification of the dura, adjacent to some areas of the calvarial defect. These appea r to have been present on the previous exam. No evidence of intracranial abnormalities seen. IMPRESSION: Findings suggesting right frontal parietal scalp defect with open communication with adjacent calvari um, concerning for an area of osteomyelitis. No definite evidence of abscess seen. POS: [facility]
[2018-10-19 18:03] LABS: ALT (SGPT) 12 U/L (8-55); AST (SGOT) 14 U/L (5-34); Alkaline Phosphatase 169 U/L (40-150); Anion Gap 13 mmol/L (10-20); BUN (Urea Nitrogen) 33 mg/dL (8.9-20.6); Bilirubin, Total 0.5 mg/dL (0.2-1.2); Calc. Creatinine Clearance 0 mL/min (70-130); Calcium 9.2 mg/dL (7.8-10.44); Carbon Dioxide 33 mmol/L (22-29); Chloride 95 mmol/L (98-107); Estimated GFR-MDRD 10; Globulin 3.6 g/dL (2.4-3.5); Glucose 90 mg/dL (70-105); Potassium 3.9 mmol/L (3.5-5.1); Protein, Total 7.6 g/dL (6.0-8.3); Sodium 137 mmol/L (136-145)
[2018-10-19] MEDS ORDERED: hydrALAZINE 20 MG/ML VIAL ONE (19:55)
--- NOTE | 2018-10-19 21:16 | CON ---
DATE OF CONSULTATION: SERVICE: Neurosurgical service. HISTORY OF PRESENT ILLNESS: Mr. Ayala is a 43-year-old man, who is known to our practice for distant emergent right frontotemporal craniectomy, status post head trauma by Dr. Montiel in 2016. He had a flap replacement at the end of that year and over that time, had apparently done well. In the interval since last seeing him in our clinic, he developed chronic renal failure and is being managed by Dr. Shin for dialysis. We are seeing him in the emergency department today for roughly one week of subcutaneous swelling and pain over the skin flap of his craniectomy site as well as a roughly 2 to 2.5 cm diameter round area of dehiscence within the margins of the incision, perhaps it is inappropriate to call this dehiscence given the incredibly delayed nature in its development and perhaps more appropriate given the CT scan of his head. This is infective erosion of tissue. The CT scan was performed that shows erosion and destruction of subcutaneous tissue up to and including epidermis down to the level of the skull with what appears to be mottling and destruction of the bone flap likely secondary to osteomyelitis. There is underlying hyperdense collection, which could represent empyema or pus collection and is immediately beneath the eroded bone of the flap. As I saw him at bedside, he is neurologically intact. He does, however, report chronic short-term memory loss since his accident back in 2016 and is for that reason, an inadequate historian. He is able to tell me that he has chronic renal disease and that Dr. Shin is his sack maker. He was actually the one, who referred him to the emergency department today after seeing him at hemodialysis and seeing his area of erosion. He is able to move all four extremities. He has no sensory disturbance that I can discern. He is very tender and obviously edematous over the skin flap. There is again roughly 2 to 2.5 cm in diameter circular erosion within the margins of the incision roughly at the midpoint between its anterior and most posterior aspect in the most cranial portion of the incision. There is no obvious drainage and it appears that he put some antibiotic ointment within this hole, which was not advisable. I am able to actually see his skull through this opening as well. From Neurosurgery's recommendation, this will likely be a somewhat delicate process of involving Infectious Disease as well as possibly Plastic Surgery for a revision and washout as he does have erosion of the soft tissues. So, closure and reconstruction may be more difficult. Plan for this evening will be recommended. Overall management with the Hospitalist Service with us as a consulting service. No imminent surgical intervention tonight. He would need ultimately an MRI with and without contrast, but we will need to coordinate this with Dr. Shin given his renal status. We will discuss with Dr. Montiel and Dr. Edawrd in the morning given his history with them, and we will plan further intervention going forward. We will swab his wound tonight to send off for cultures. The patient will also need broad-spectrum antibiotics started, which he has already received in the emergency department in the form of vancomycin. Job ID: [id number]
[2018-10-19] MEDS ORDERED: Acetaminophen 325 MG TAB ONE (22:43)
[2018-10-20 00:21] VITALS: BMI 27.8
[2018-10-20] MEDS: Atorvastatin Calcium 40 MG TAB PO SCH ×2 (00:30→23:42)
[2018-10-20] MEDS: Carvedilol 3.125 MG TAB PO SCH ×3 (00:31→23:43)
[2018-10-20] MEDS: hydrALAZINE 25 MG TAB PO SCH ×4 (00:31→23:42)
[2018-10-20] MEDS: Lacosamide 50 mg Tablet PO SCH ×3 (00:32→23:43)
[2018-10-20] MEDS: cefTRIAXone\\ROCEPHIN 2 GM in Sodium Chloride 0.9% 100 ML IVPB SCH ×2 (00:33→09:57)
--- NOTE | 2018-10-20 00:53 | HP ---
PRIMARY CARE DOCTOR: No PCP reported. CODE STATUS: Full code. TIME OF EVALUATION: 7:50 p.m. CHIEF COMPLAINT: Scalp wound. HISTORY OF PRESENT ILLNESS: A 43-year-old male patient with past medical history of diabetes type 2, seizures; end stage renal disease, on hemodialysis; also brain surgery in the past, having craniotomy, came to the hospital after having some drainage from the wound of the scalp. The patient reported he had the symptoms for the past week. He had a surgery of the brain in 2016. Symptoms are mild to moderate. No clear triggers, no alleviating factors. The patient had some pain associated with it, it was throbbing. Symptoms started insidiously and has been getting gradually worse. It was reported the patient has some osteomyelitis of the area, being started on antibiotics and consulted Dr. Collins, Neurosurgery is being involved. REVIEW OF SYSTEMS: CONSTITUTIONAL: No fever, chills, or generalized weakness. RESPIRATORY: No cough, sputum production, or shortness of breath. CARDIOVASCULAR: No chest pain or palpitation. GASTROINTESTINAL: No nausea, vomiting, diarrhea, or abdominal pain. DIETITIAN CONSULTANT: No dizziness, headache, or feeling lightheaded. The patient has an old scar on the right side of the skull, temporal area. Reported yellow drainage from the wound. GENITOURINARY: No burning on urination. EXTREMITIES: No leg swelling. All other systems were reviewed and negative except for the findings mentioned above. PAST MEDICAL HISTORY: As reported in the HPI. PAST SURGICAL HISTORY: Right pinky toe amputation; craniotomy; fistula, left arm. PSYCH HISTORY: No previous psych history. FAMILY HISTORY: Reviewed and non contributory for current presentation. SOCIAL HISTORY: No alcohol. No drug use. No smoking history. Lives at home alone. KNOWN ALLERGIES: Penicillin. REPORTED MEDICATIONS: 1. Auryxia. 2. Clonidine. 3. Hydralazine. 4. Lisinopril. 5. Losartan. 6. Phenytoin. 7. Renvela. 8. Vimpat. 9. Vitamin D3. 10. Zoloft. PHYSICAL EXAMINATION: VITAL SIGNS: On presentation, blood pressure 185/100, heart rate 72, respiratory rate was 20, temperature 97.6. Pain was 4/10. Oxygen saturation 99 on room air. GENERAL APPEARANCE: The patient is alert. The patient has slow mentation, oriented, not in acute distress. HEENT: Eyes, normal conjunctivae. Moist oral mucosa. Anicteric. No JVD. Are normal continue moist oral mucosa. Anicteric. No JVD. The patient has on the right parietal area an old scar, has some drainage. CARDIOVASCULAR: Normal rate, regular rhythm. No murmurs, no gallops. No edema. ABDOMEN: Soft. Normal bowel sounds. MUSCULOSKELETAL: Baseline range of motion and strength. No tenderness. SKIN: Warm, intact. No pallor. No rash. No redness. Peripheral pulses are present. Capillary refill seems to intact. NEURO: No evidence of any new focal weakness. Baseline speech. Cranial nerves seems to be intact. The patient has a baseline slow mentation from previous surgery. PSYCH: Good mood. No anxiety. Optimal judgment. 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 IMAGING STUDIES: Brain CT was reported, findings suggestive of right frontoparietal scalp defect with open communication with adjacent calvarium concerning for an osteomyelitis. No definite evidence of abscess is seen. LABORATORY DATA: Labs were reviewed. White count 4.9, hemoglobin 12, MCV 101, platelet count 183. Chemistry; sodium 137, potassium 3.9, chloride 95, carbon dioxide 33, anion gap 13, BUN 33, creatinine 6.4, GFR 10, lactic acid 0.8. LFTs were negative. Alkaline phosphatase 169. ASSESSMENT AND PLAN: The patient will be placed in the hospital with following medical problems: 1. Osteomyelitis of the right frontoparietal scalp area. The patient has been started on broad-spectrum antibiotics. Neurosurgery has been consulted. We will follow recommendations. We will follow cultures. We will adjust treatment as per sensitivity. 2. History of seizures, reconcile home medications. The patient had no seizures today. 3. History of hypertension, has been uncontrolled, systolic blood pressure very high. Reconcile home medications. We will adjust treatment as needed. Might need some IV p.r.n. medication for optimal control. 4. Deep venous thrombosis prophylaxis. high risk of DIETITIAN CONSULTANT infection Job ID: [id number] [facility]
[2018-10-20] MEDS ORDERED: Vancomycin HCl 1.25 GM in Sodium Chloride 0.9% 250 ML 250 ML IVPB SCH (03:15)
[2018-10-20] MEDS ORDERED: Vancomycin HCl 750 MG in Sodium Chloride 0.9% 250 ML 250 ML IVPB SCH (03:15)
[2018-10-20] MEDS ORDERED: Vancomycin HCl 1 GM in Premix Bag 1 BAG IVPB SCH (03:15)
[2018-10-20] MEDS ORDERED: Vancomycin HCl 500 MG in Sodium Chloride 0.9% 100 ML IVPB SCH (03:15)
[2018-10-20] MEDS ORDERED: Vancomycin Sliding Scale 1 EACH FS ONE (03:15)
[2018-10-20] MEDS ORDERED: HOLD VANCOMYCIN FOR LEVEL >20 FS SCH (03:15)
[2018-10-20 06:09] LABS: #Eosinphils 0.1 thou/uL (0.0-0.7); #Lymphocytes 1.3 thou/uL (1.20-3.40); #Monocytes 0.5 thou/uL (0.11-0.59); #Neutrophils 3.4 thou/uL (1.40-6.50); %Eosinophils 1.2 % (0.0-10.0); %Lymphocytes 24.7 % (21.0-51.0); %Neutrophils 64.1 % (42.0-75.0); Mean Corpuscular HGB CONC 33.4 g/dL (32.0-36.0); Mean Corpuscular Hemoglobin 34.1 pg (27.0-31.0); Mean Platelet Volume 6.8 fL (7.4-10.4); Platelet Count 172 thou/uL (130-400); RBC Distribution Width 13.5 % (11.5-14.5); Red Blood Cell (RBC) Count 3.51 mill/uL (4.70-6.10); White Blood Cell (WBC) Count 5.2 thou/uL (4.8-10.8)
[2018-10-20 06:29] LABS: Anion Gap 15 mmol/L (10-20); BUN (Urea Nitrogen) 43 mg/dL (8.9-20.6); Calc. Creatinine Clearance 13 mL/min (70-130); Calcium 8.8 mg/dL (7.8-10.44); Carbon Dioxide 31 mmol/L (22-29); Chloride 96 mmol/L (98-107); Estimated GFR-MDRD 7; Glucose 82 mg/dL (70-105); Potassium 4.7 mmol/L (3.5-5.1); Sodium 137 mmol/L (136-145)
[2018-10-20] MEDS ORDERED: Enoxaparin Sodium 40 MG/0.4 ML SYRINGE SC SCH (09:00)
[2018-10-20] MEDS ORDERED: HumaLOG 300 UNITS/3 ML VIAL SC PRN (09:19)
[2018-10-20] MEDS ORDERED: Dextrose 50% Abboject 50 ML SYRINGE IVP PRN (09:19)
[2018-10-20] MEDS ORDERED: Dextrose 5% in Water 1,000 ML IV PRN (09:19)
[2018-10-20] MEDS: Aspirin Chewable 81 MG TAB PO SCH (09:57)
[2018-10-20] MEDS: Lisinopril 2.5 MG TAB PO SCH (09:57)
[2018-10-20] MEDS: Amantadine HCl 100 mg Capsule PO SCH (09:57)
[2018-10-20] MEDS: Amlodipine 5 MG TAB PO SCH (09:59)
[2018-10-20] MEDS: Acetaminophen 325 MG TAB PO PRN (10:09)
--- NOTE | 2018-10-20 10:27 | MRI ---
MRI BRAIN NONCONTRAST: 10/20/2018 HISTORY: A 43-year-old male with drainage from a right scalp wound. COMPARISON: MRI from 07/27/2018. TECHNIQUE: In addition to standard noncontrast brain MRI, axial T1WI with and without fat suppression and axial T2WI with and without fat suppression, sequences were added. For patients on hemodialysis, there is a risk for NSF (nephrogenic systemic fibrosis) when Gadolinium -based contrast agents are administered. However, there are instances when MultiHance is given, after weighing the risk of NSF versus the benefit of administering the contrast agent, but that is when pa tients are scheduled for immediate hemodialysis after the MRI. In this particular case, the patient' s hemodialysis is scheduled for the following day. Therefore, the decision was made not to administer the contrast agent. FINDINGS: Again noted are the right frontotemporoparietal craniotomy changes. The bone flap is riddled with nu merous extensive osteolytic irregular defects. At the site of the most posterior osteolytic defect a t that bone flap, there is a new, approximately 2.5 x 1.2 cm fluid collection, which is heterogeneous ly T1 hypointense and heterogeneously T2 hyperintense. It exhibits restricted diffusion, but no cent ral magnetic susceptibility artifact. The restricted diffusion is therefore highly suggestive of a s calp abscess. Deep to the craniotomy flap, there is a broad, thin layer of material along the stripp ed subdural space, which has signal intensity that is intermediate between brain parenchyma and CSF o n T1WI. Lack of Gadolinium-based contrast agent injection makes it difficult to determine whether or not this is a thin subdural empyema or granulation tissue. However, there is no evidence of edema in the underlying adjacent brain parenchyma. Again noted is the small to moderate sized region of encephalomalacia and gliosis in the right tempor al lobe. the ventricles are normal in size and configuration. The chronic ischemic white matter zita nges in the brain are mild. There is a small T2 hyperintense lesion in the left side of the midbrain , presumably representing a small, old lacunar infarction. No intraaxial restricted diffusion or int raaxial recent hemorrhage. No mass effect or midline shift. IMPRESSION: 1. Status post right frontotemporoparietal craniotomy. 2. Large number of extensive osteolytic defects throughout the craniotomy bone flap. It is difficul t to rule in or rule out osteomyelitis. 3. Evidence for new superficial soft tissue scalp abscess at the posterior aspect of the bone flap. This abscess partially occupies one of the far posterior osteolytic lesions. 4. Thin layer of right frontotemporoparietal material abutting the deep surface of the bone flap, no nspecific. At least some of this represents granulation tissue. 5. Right temporal lobe region of encephalomalacia and gliosis, as previously demonstrated. 6. 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 7. No intracranial mass effect or acute hemorrhage. JN R POS: [facility]
--- NOTE | 2018-10-20 10:32 | PRG ---
DATE OF SERVICE: 10/20/2018 This is a 50-minute initial hospital visit note, in which 50 minutes were spent in reviewing the imaging record, evaluation, examination of patient, formulation of plan. Greater than 50% time was spent in counseling on Wilbert Ayala. Mr. Ayala is a 43-year-old man known to me, 2-1/2 years ago in February 2016, I took him to surgery as he presented after a fall with a large right-sided acute subdural hematoma with seizure and structural pathology consistent with midline shift, mass effect, neurologic decline. This was due to a ruptured arteriovenous malformation. He required a hemicraniectomy at the time and his bone flap was replaced 6 months later in August 2016. The patient was essentially followed up and was sporadic in his scheduled appointments until he presented to my clinic a couple of months ago with concern of a small area in his right side wound where there was a hole. He admittedly states he had been picking at his wound and obviously given his history of end-stage renal disease, an ejection fraction of 35% and diabetes, there is concern that he had developed a superficial wound infection. I recommended followup. Unfortunately, the patient did not. He presented to the ER last night with further dehiscence of his wound. Head CT demonstrates findings consistent with osteomyelitis. He neurologically is at his baseline and frankly is alert, follows commands in all four extremities, but does have frontal lobe findings of abulia when discussing his pathology. I have let him know that we are awaiting further data at this point, but I will arrange for C-reactive protein. I have evaluated C-reactive protein which is 4.8, and his sedimentation rate is elevated as well at 33. His white blood cell count is 5.2, frankly looks too good to have a subdural empyema. His head CT demonstrates really only the findings for osteomyelitis. There is no other midline shift or mass effect. Again, I suspect this is really deep infection with extension to the bone, but not beneath that nevertheless, but the patient noted that we will need to obtain some more studies including an MRI of the brain without and with contrast and arrange for reopening of his right cranial wound and removal of his bone flap. I do not think it is salvageable at this time. We will obtain intraoperative cultures and obviously given the patient's profound risk factors, there could be potentially multiple bacteria involved, but likely Staphylococcus. At the time of surgery, which I am tentatively planning at this point to be October 22, again we will revise this wound, leave the bone flap out and likely plan for replacement of a custom implant in 3 to 6 months once he is cleared infection. DIAGNOSES: 1. Right cranial osteomyelitis. 2. End-stage renal disease, on dialysis. 3. Diabetes mellitus. 4. Congestive heart failure. Job ID: [id number]
--- NOTE | 2018-10-20 11:10 | CON ---
DATE OF CONSULTATION: HISTORY OF PRESENT ILLNESS: Mr. Ayala is a 43-year-old male with ESRD - on maintenance hemodialysis. He was admitted due to a scalp wound with discharge on the suture line. He had a CAT scan of the head and a suggestion, there may be an osteomyelitis of the right frontal parietal scalp area. He has been started on IV antibiotics. We are now being consulted for his maintenance hemodialysis. REVIEW OF SYSTEMS: No headache. No fever or chills. No nausea. No vomiting. No chest pain. No shortness of breath. No diarrhea. No constipation. No productive cough. No fever or chills. Appetite and energy level are fair. No joint pains. No new skin rash. No diplopia. No sore throat. No dysuria. No urinary frequency. MEDICATIONS: Currently on; 1. Amantadine 100 mg p.o. daily. 2. Norvasc 5 mg daily. 3. Aspirin 81 mg tablet once a day. 4. Lipitor 40 mg at bedtime. 5. Coreg 3.125 mg p.o. b.i.d. 6. Hydralazine 25 mg p.o. t.i.d. 7. Vimpat 50 mg p.o. b.i.d. 8. Zestril 2.5 mg daily. 9. Status post vancomycin. 10. Dilantin ER 400 mg q.p.m. 11. Ceftriaxone, he is getting 2 g IV q.12 at the present time. PAST MEDICAL HISTORY: 1. ESRD, currently on maintenance hemodialysis Friday, Friday, and Friday. 2. Seizure disorder. 3. Hypertension. 4. Hyperphosphatemia. 5. Type 2 diabetes mellitus. 6. Status post intracranial bleed. PAST SURGICAL HISTORY: Status post craniotomy, status post cuffed hemodialysis catheter placement, status post AV fistula placement, status post PD catheter placement and subsequent removal, status post left arm amputation, and status post colonoscopy. SOCIAL HISTORY: The patient currently lives alone. He lives in [place]. He is single, 3 children. 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 No smoking. No alcohol use. Education, seventh grade. Status post multiple blood transfusion. ALLERGIES: PENICILLIN. TRAUMA: Status post head injury/subdural hematoma. IMMUNIZATION: Up-to-date. HOSPITALIZATIONS: Please see past medical history. FAMILY HISTORY: No family history of ESRD. PHYSICAL EXAMINATION: VITAL SIGNS: Blood pressure is noted at 135/84, heart rate 79, respiratory rate 18, temperature 98.6, and pulse ox 100%. GENERAL: Noted to be awake, alert, comfortable. SKIN: Adequate turgor. HEENT: He has a pinkish conjunctivae. Anicteric sclerae. He has a scalp suture with discharge. NECK: No neck mass. No carotid bruits. No JVD. LUNGS: Clear breath sounds. No wheezing. No crackles. HEART: Normal sinus rhythm. No murmur. No gallops. No rubs. ABDOMEN: Globular, soft, and nontender. No masses. EXTREMITIES: No edema. No deformities. NEUROLOGIC: Moving all extremities. No tremors. No asterixis. No ataxia. Oriented to 3 spheres. LABORATORY DATA: Laboratories of October 20, 2018, white count 5.2 and hemoglobin 12. Sodium 137, potassium 4.7, chloride 96, carbon dioxide 31, BUN 43, creatinine 8.75, glucose 82, and calcium 8.8. CT scan of the head, October 19, 2018, shows findings suggesting right frontal parietal scalp defect with open communication with adjacent calvarium - concerning for an area osteomyelitis. ASSESSMENT AND PLAN: 1. Right frontal scalp defect with open communication with adjacent calvarium - concerning for an area of osteomyelitis - Neurosurgery is following. The patient is on empiric IV antibiotics. We will adjust ceftriaxone to renal dose. 2. End-stage renal disease, stable. We will continue current hemodialysis regimen. The patient did receive dialysis yesterday. We will plan to continue Friday, Friday, and Friday dialysis regimen. Review of the last Kt/V suggests he is adequately dialyzed with the current dialysis regimen. Thank you for the consult. We will continue to follow. Job ID: [id number]
--- NOTE | 2018-10-20 13:11 | PDOC.PN ---
- Subjective Encounter Start Date: 10/20/18 Encounter Start Time: 13:09 Mr. Ayala was seen today in follow-up of Osteomyelitis of the cranium. He says he feels fine,but will feel some tightness in his scalp if he yawns. He denies danita pain. - Objective Resuscitation Status - Order Detail: 10/19/18 20:53 Resuscitation Status Routine Resuscitation Status: FULL: Full Resuscitation MAR Reviewed: Yes Vital Signs & Weight: Vital Signs (12 hours) Temp Pulse Resp BP BP BP Pulse Ox 10/20/18 11:42 98.5 F 78 20 161/90 H 99 10/20/18 09:59 78 153/89 H 10/20/18 09:57 78 153/89 H 10/20/18 08:57 100 10/20/18 08:00 98.6 F 79 18 167/91 H 100 10/20/18 04:00 98.6 F 80 18 126/74 98 Weight Weight 189 lb Result Diagrams: 10/20/18 05:32 10/20/18 05:32 Additional Labs: Accuchecks 10/20/18 10:50 POC Glucose 182 H Phys Exam - Physical Examination HEENT: PERRLA + irregularity of the scalp, and some purrulent drainage from the right scalp Respiratory: no wheezing, no rales, no rhonchi, clear to auscultation bilateral Cardiovascular: RRR, no significant murmur, no rub Gastrointestinal: soft, non-tender, positive bowel sounds Musculoskeletal: no edema, pulses present Dx/Plan (1) Acute osteomyelitis of cranium Code(s): M86.18 - OTHER ACUTE OSTEOMYELITIS, OTHER SITE Status: Acute (2) DM type 2 (diabetes mellitus, type 2) Status: Chronic Qualifiers: Diabetes mellitus oysterman insulin use: without fpc use Diabetes mellitus complication status: with kidney complications Diabetes mellitus complication detail: with chronic kidney disease Chronic kidney disease stage : on chronic dialysis Qualified Code(s): E11.22 - Type 2 diabetes mellitus with diabetic chronic kidney disease; N18.6 - End stage renal disease; Z99.2 - Dependence on renal dialysis (3) ESRD (end stage renal disease) Code(s): N18.6 - END STAGE RENAL DISEASE Status: Chronic (4) HTN (hypertension) Code(s): I10 - ESSENTIAL (PRIMARY) HYPERTENSION Status: Chronic Qualifiers: Hypertension type: essential hypertension Qualified Code(s): I10 - Essential (primary) hypertension (5) Seizure disorder Code(s): G40.909 - EPILEPSY, UNSP, NOT INTRACTABLE, WITHOUT STATUS EPILEPTICUS Status: Chronic Comment: on AEDs - Plan * Osteomyelitis of the cranium- Neurosurgery recommendations noted, He will likely need excision of the infected bone. Continue IV Vancomycin and Rocephin. Agree with ID consult * DM- blood glucose is stable continue SSI * HTN- blood pressure is elevated- will re-start his home medications and PRN hydralazine * ESRD- continue Dialysis per Nephrology * Seizure disorder- stable- continue Vimpat and Phenytoin
[2018-10-20] MEDS ORDERED: hydrALAZINE 20 MG/ML VIAL SLOW IVP PRN (13:14)
[2018-10-20] MEDS: Sevelamer Carbonate 800 MG TAB PO SCH (23:41)
--- NOTE | 2018-10-21 08:49 | PRG ---
DATE OF SERVICE: SERVICE: Renal Medicine. SUBJECTIVE: Mr. Ayala is a 43-year-old male with ESRD and was admitted for a possible osteomyelitis of his scalp flap. He is being empirically treated with IV antibiotics. He has been evaluated by a surgery. The patient voices no new complaints today. He denies any chest pain or shortness of breath. He is currently at the dialysis. We are trying to avoid heparin with him with his dialysis. OBJECTIVE: VITAL SIGNS: Blood pressure 148/85, heart rate 77, respiratory rate 16, temperature 98.3, and pulse ox 97%. GENERAL: Noted to be awake, alert, comfortable, not in overt distress. SKIN: Adequate turgor. HEENT: He has pinkish conjunctivae. Anicteric sclerae. No neck mass. No carotid bruits. No JVD. CHEST: No deformities. LUNGS: Clear breath sounds. No wheezing. No crackles. HEART: Normal sinus rhythm. No murmur. No gallops. No rubs. ABDOMEN: Globular, soft, nontender. No masses. EXTREMITIES: No edema. No deformities. MEDICATIONS: Medications of October 21, 2018, was reviewed. LABORATORY DATA: Laboratories of October 20, 2018, white count 5.2, hemoglobin 12, sodium 137, potassium 4.7, chloride 96, carbon dioxide 31, BUN 43, creatinine 8.75, calcium 8.8. ASSESSMENT AND PLAN: 1. End-stage renal disease, stable. Continue current hemodialysis regimen. Fluid removal only as tolerated. No changes with the current dialysis regimen is to be made. 2. Scalp/osteomyelitis, on empiric antibiotics. 3. Continue current management. Job ID: [id number]
[2018-10-21] MEDS ORDERED: Heparin 10,000 UNITS/ 10 ML VIAL ONE (09:00)
--- NOTE | 2018-10-21 09:39 | PRG ---
DATE OF SERVICE: 10/21/2018 I went to see Mr. Ayala this morning, but he was at dialysis. Review of his MRI consistent with the CT demonstrates osteomyelitis. There may be even some epidural extension. Nevertheless, we need to take him to a surgery to remove his skull. He will need to be without the prosthetic for 3-6 months or, however, long it takes to clear his infection and for his wound to heal. I will plan to discuss more with him tomorrow morning as again he has gone today. Job ID: [id number]
[2018-10-21] MEDS ORDERED: cefTRIAXone\\ROCEPHIN 2 GM in Sodium Chloride 0.9% 100 ML IVPB SCH (10:00)
[2018-10-21] MEDS: Acetaminophen 325 MG TAB PO PRN (13:11)
--- NOTE | 2018-10-21 13:19 | PDOC.PN ---
- Subjective Encounter Start Date: 10/21/18 Encounter Start Time: 13:17 Subjective: seen in HD. feels weak but no neurological deficits,no visual defects -: no nausea/vomiting -: c/o R shoulder pain-mild and chr on and off diarrhea - Objective Resuscitation Status - Order Detail: 10/19/18 20:53 Resuscitation Status Routine Resuscitation Status: FULL: Full Resuscitation MAR Reviewed: Yes Vital Signs & Weight: Vital Signs (12 hours) Temp Pulse Resp BP Pulse Ox 10/21/18 07:51 98.3 F 77 16 148/85 H 97 10/21/18 03:59 98.4 F 81 18 130/85 98 Weight Weight 189 lb Result Diagrams: 10/20/18 05:32 10/20/18 05:32 Additional Labs: Accuchecks 10/21/18 10/20/18 10/20/18 05:55 23:41 16:42 POC Glucose 103 101 108 Microbiology 10/19/18 19:50 Misc:See specimen description - Pending Bacterial Culture - Preliminary Staphylococcus aureus 10/19/18 17:54 Venous blood - Right Hand Blood Culture - Preliminary Specimen has been received and culture in progress. No Growth to date. 10/19/18 17:38 Venous blood - Right Arm Blood Culture - Preliminary Specimen has been received and culture in progress. No Growth to date. Phys Exam - Physical Examination Constitutional: NAD HEENT: PERRLA, moist MMs, sclera anicteric, oral pharynx no lesions R scalp scar w open wound w dried blood. palpable fluctuance R scalp Neck: no nodes, no JVD, supple, full ROM Respiratory: no wheezing, no rales, no rhonchi, clear to auscultation bilateral Cardiovascular: RRR, no significant murmur Gastrointestinal: soft, non-tender, no distention, positive bowel sounds Musculoskeletal: no edema, pulses present Neurological: non-focal, normal sensation, moves all 4 limbs Psychiatric: normal affect, A&O x 3 Skin: no rash Dx/Plan (1) Acute osteomyelitis of cranium Code(s): M86.18 - OTHER ACUTE OSTEOMYELITIS, OTHER SITE Status: Acute Comment: OR tomorrow. HD stable. cont ABx (2) CHF (congestive heart failure) Code(s): I50.9 - HEART FAILURE, UNSPECIFIED Status: Chronic Comment: ef of 35% on stress test 2017.on ARB and PEPE-I w BB (3) DM type 2 (diabetes mellitus, type 2) Status: Chronic Qualifiers: Diabetes mellitus manager long term care insulin use: without prison use Diabetes mellitus complication status: with kidney complications Diabetes mellitus complication detail: with chronic kidney disease Chronic kidney disease stage : on chronic dialysis Qualified Code(s): E11.22 - Type 2 diabetes mellitus with diabetic chronic kidney disease; N18.6 - End stage renal disease; Z99.2 - Dependence on renal dialysis (4) ESRD (end stage renal disease) Code(s): N18.6 - END STAGE RENAL DISEASE Status: Chronic (5) HTN (hypertension) Code(s): I10 - ESSENTIAL (PRIMARY) HYPERTENSION Status: Chronic Qualifiers: Hypertension type: essential hypertension Qualified Code(s): I10 - Essential (primary) hypertension (6) Seizure disorder Code(s): G40.909 - EPILEPSY, UNSP, NOT INTRACTABLE, WITHOUT STATUS EPILEPTICUS Status: Chronic Comment: on AEDs - Plan continue antibiotics, out of bed/ambulate, DVT proph w/SCDs surgical intervention for scalp Osteo & possible underlying abscess tomorro -: cont dialysis. -: Stop either PEPE-I or ARB as on both.monitor BP -: home meds as below otherwise * . Review of Systems - Review of Systems Constitutional: weakness, malaise. negative: fever, chills, sweats, other Eyes: negative: Pain, Vision Change, Conjunctivae Inflammation, Eyelid Inflammation, Redness, Other Respiratory: negative: Cough, Dry, Shortness of Breath, Hemoptysis, SOB with Excertion, Pleuritic Pain, Sputum, Wheezing Cardiovascular: negative: chest pain, palpitations, orthopnea, paroxysmal nocturnal dyspnea, edema, light headedness, other Gastrointestinal: negative: Nausea, Vomiting, Abdominal Pain, Diarrhea, Constipation, Melena, Hematochezia, Other Genitourinary: negative: Dysuria, Frequency, Incontinence, Hematuria, Retention , Other Musculoskeletal: negative: Neck Pain, Shoulder Pain, Arm Pain, Back Pain, Hand Pain, Leg Pain, Foot Pain, Other Neurological: negative: Weakness, Numbness, Incoordination, Change in Speech, Confusion, Seizures, Other - Medications/Allergies Allergies/Adverse Reactions: Allergies Allergy/AdvReac Type Severity Reaction Status Date / Time Penicillins Allergy Intermediate Hives Verified 08/28/16 11:01 Medications: Current Medications Acetaminophen (Tylenol) 650 mg PO Q4H PRN PRN Reason: Headache/Fever/Mild Pain (1-3) Last Admin: 10/21/18 13:11 Dose: 650 mg Amantadine HCl (Symmetrel) 100 mg PO DAILY [facility] Last Admin: 10/20/18 09:57 Dose: 100 mg Amlodipine Besylate (Norvasc) 5 mg PO DAILY [facility] Last Admin: 10/20/18 09:59 Dose: 5 mg Aspirin (Aspirin Chewable) 81 mg PO DAILY [facility] Last Admin: 10/20/18 09:57 Dose: 81 mg Atorvastatin Calcium (Lipitor) 40 mg PO HS [facility] Last Admin: 10/20/18 23:42 Dose: 40 mg Carvedilol (Coreg) 3.125 mg PO BID [facility] Last Admin: 10/20/18 23:43 Dose: 3.125 mg Dextrose/Water (Dextrose 50%) 25 gm IVP PRN PRN PRN Reason: HYPOGLYCEMIA PROTOCOL Glucagon (Glucagon) 1 mg IM PRN PRN PRN Reason: HYPOGLYCEMIA PROTOCOL Hydralazine HCl (Apresoline) 25 mg PO TID [facility] Last Admin: 10/20/18 23:42 Dose: 25 mg Hydralazine HCl (Apresoline) 10 mg SLOW IVP Q4H PRN PRN Reason: SBP > 180 and HR < 70 Vancomycin HCl 1.25 gm/ Sodium (Chloride) 250 mls @ 166.667 mls/hr IVPB [facility] Vancomycin HCl 1 gm/ Device 200 mls @ 200 mls/hr [facility] Vancomycin HCl 750 mg/ Sodium (Chloride) 250 mls @ 250 mls/hr IVPB [facility] Vancomycin HCl 500 mg/ Sodium (Chloride) 100 mls @ 100 mls/hr IVPB [facility] Dextrose/Water (D5w) 1,000 mls @ 0 mls/hr IV INF PRN PRN Reason: HYPOGLYCEMIA PROTOCOL Ceftriaxone Sodium 2 gm/ (Sodium Chloride) 100 mls @ 200 mls/hr IVPB Q24HR@ 1000 [facility] Insulin Human Lispro (Humalog) 0 units SC .MILD SLIDING SCALE PRN; Protocol PRN Reason: MILD SLIDING SCALE Last Admin: 10/20/18 11:27 Dose: 2 unit Lacosamide (Vimpat) 50 mg PO BID [facility] Last Admin: 10/20/18 23:43 Dose: 50 mg Lisinopril (Zestril) 2.5 mg PO DAILY [facility] Last Admin: 10/20/18 09:57 Dose: 2.5 mg Miscellaneous Medication (Pharmacy To Dose) 1 each IVPB ONE PRN PRN Reason: DOSING Stop: 11/18/18 21:37 Hold Vancomycin For (Level >20) 0 each FS .AT DIALYSIS [facility] Ondansetron HCl (Zofran) 4 mg IVP Q6H PRN PRN Reason: Nausea/Vomiting Ferric Citrate [ (Auryxia] 210 Mg) 0 each PO TID [facility] Phenytoin Sodium (Dilantin Er) 400 mg PO QPM [facility] Last Admin: 10/20/18 23:41 Dose: 400 mg Sertraline HCl (Zoloft) 50 mg PO DAILY [facility] Sevelamer Carbonate (Renvela) 1,600 mg PO TID [facility] Last Admin: 10/20/18 23:41 Dose: 1,600 mg
[2018-10-21] MEDS: Sevelamer Carbonate 800 MG TAB PO SCH ×3 (13:21→21:20)
[2018-10-21] MEDS: Lacosamide 50 mg Tablet PO SCH ×2 (13:21→21:22)
[2018-10-21] MEDS: hydrALAZINE 25 MG TAB PO SCH ×3 (13:21→21:22)
[2018-10-21] MEDS: Lisinopril 2.5 MG TAB PO SCH (13:21)
[2018-10-21] MEDS: Aspirin Chewable 81 MG TAB PO SCH (13:22)
[2018-10-21] MEDS: Carvedilol 3.125 MG TAB PO SCH ×2 (13:22→21:21)
[2018-10-21] MEDS: Amantadine HCl 100 mg Capsule PO SCH (13:22)
[2018-10-21] MEDS: Amlodipine 5 MG TAB PO SCH (13:22)
[2018-10-21] MEDS ORDERED: traMADol HCl 50 MG TAB PO SCH (13:30)
[2018-10-21] MEDS ORDERED: Saccharomyces boulardii 250 MG CAP PO SCH (13:45)
[2018-10-21 14:41] LABS: Vancomycin, Random 11.4 ug/mL (See Comment)
[2018-10-21] MEDS: cefTRIAXone\\ROCEPHIN 2 GM in Sodium Chloride 0.9% 100 ML IVPB SCH (15:19)
[2018-10-21] MEDS ORDERED: Vancomycin HCl 750 MG in Sodium Chloride 0.9% 250 ML 250 ML IVPB SCH (16:15)
[2018-10-21] MEDS: Atorvastatin Calcium 40 MG TAB PO SCH (21:21)
--- NOTE | 2018-10-21 23:11 | CON ---
DATE OF CONSULTATION: 10/21/2018 REASON FOR CONSULTATION: Infected craniectomy bone flap. HISTORY OF PRESENT ILLNESS: A 43-year-old who is known to us from previous visit when he presented with a history of type 2 diabetes, end-stage renal disease, and seizure activity with fall and subdural hematoma, which led to evacuation of hematoma in February with decompressive hemicraniectomy. 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 I saw him then because of fever after placement of lumbar drain. At the time, he had a tracheostomy and gastrostomy. He had an extraventricular CSF collection and pseudomeningocele coagulase-negative Staph infection of the area. The lumbar drain was removed and patient had therapy with vancomycin for about a week after that, now we are about a year and a half to almost two years later and he developed a scalp wound with drainage and imaging studies are suggestive of infection with abscess and osteomyelitis of the bone flap. He is going to have surgery tomorrow and he is currently on a broad-spectrum coverage, waiting on surgical flap removal and then protracted antimicrobial therapy to heal the area and then revision with the prostatic flap. Currently, he is sitting in bed. He is oriented. Moves all extremities with little limitation on the right side. No headaches. No sore throat, odynophagia or dysphagia. No dyspnea, no chest pain, no abdominal pain or diarrhea, voiding without difficulty. PAST MEDICAL HISTORY: 1. Type 2 diabetes. 2. End-stage renal disease on hemodialysis with AV fistula, left upper extremity. 3. Seizure activity. 4. Subdural hematoma and AV malformation, which led to extensive neurosurgical interventions in 2017. 5. The patient has a transient infection of the CSF and by coagulase negative Staph, which was treated to completion. PAST SURGICAL HISTORY: 1. Right 5th toe amputation. 2. AV fistula placement. 3. Neurosurgical procedures including craniectomy, AV malformation resection and subdural hematoma drainage. SOCIAL HISTORY: Never smoker, lives in [place]. ALLERGIES: PENICILLIN WITH RASH. FAMILY HISTORY: Noncontributory. CURRENT MEDICATIONS: 1. Symmetrel. 2. Norvasc. 3. Lipitor. 4. Coreg. 5. Rocephin. 6. Vancomycin. 7. Tramadol. 8. Renvela. 9. Dilantin. 10. Vimpat. PHYSICAL EXAMINATION: VITAL SIGNS: T-max 98.6, BP 150/80, pulse 78, respirations 16, O2 saturation 95%. SKIN: The patient has areas of hyperkeratosis in dorsal aspect of the feet. The flap in the right side of his head with area of scabbed over wound in posterior aspect of the flap. I could not identify any drainage at the moment of the exam. The patient has the AV fistula, which has been accessed today for dialysis. HEENT: Ocular movements are conjugate. Sclerae white. Pupils are equal. Oral cavity normal. NECK: Supple. LUNGS: Symmetric, clear breath sounds. HEART: S1-S2, regular rate. ABDOMEN: Soft, not distended or tender. No ascites. No bladder distention, no organomegaly. EXTREMITIES: No joint inflammatory activity. Little bit weak on the right side with little bit of stiffness. No hyperreflexia or clonus. NEUROLOGIC: He is awake, oriented, knows his name. He knew where he was, fairly decent recollection. LABORATORY DATA: White cell count 4.9 and 5.2, hemoglobin 12, platelets 172, normal differential. Chemistry with the expected findings for his stage of renal disease. Alkaline phosphatase 169, transaminases normal, albumin 4.0, random vanc 11.4. Culture from what appears to be from the scalp with Staph aureus. ASSESSMENT: 1. End-stage renal disease secondary to type 2 diabetes mellitus, on hemodialysis through an arteriovenous fistula. 2. Seizure activity with subdural hematoma following accidental fall in 2017, which led to nuerosurgical procedures. 3. Patient had transient coagulase negative Staph infection of the lumbar drain and now he presents with delayed onset postoperative infection of the craniectomy bone flap, likely due to Staphylococcus aureus, possibly methicillin-resistant Staphylococcus aureus. The patient will have the flap removal tomorrow and we will have to remain without a flap for a protracted period of time until the infection is cleared and then revision of the surgery. We will hopefully be able to treat him during dialysis using vancomycin and sliding scale. This assuming as pure infection by Staphylococcus aureus. Job ID: [id number]
[2018-10-22 05:49] LABS: #Eosinphils 0.1 thou/uL (0.0-0.7); #Lymphocytes 1.7 thou/uL (1.20-3.40); #Monocytes 0.6 thou/uL (0.11-0.59); #Neutrophils 1.8 thou/uL (1.40-6.50); %Basophils 0.6 % (0.0-1.0); %Eosinophils 1.9 % (0.0-10.0); %Lymphocytes 40.1 % (21.0-51.0); %Monocytes 14.8 % (0.0-10.0); %Neutrophils 42.6 % (42.0-75.0); Hemoglobin 12.1 g/dL (14.0-18.0); Mean Corpuscular HGB CONC 33.1 g/dL (32.0-36.0); Mean Corpuscular Hemoglobin 33.8 pg (27.0-31.0); Mean Platelet Volume 6.9 fL (7.4-10.4); Platelet Count 171 thou/uL (130-400); RBC Distribution Width 13.3 % (11.5-14.5); Red Blood Cell (RBC) Count 3.58 mill/uL (4.70-6.10); White Blood Cell (WBC) Count 4.3 thou/uL (4.8-10.8)
[2018-10-22 06:04] LABS: Anion Gap 15 mmol/L (10-20); BUN (Urea Nitrogen) 35 mg/dL (8.9-20.6); Calc. Creatinine Clearance 14 mL/min (70-130); Calcium 9.3 mg/dL (7.8-10.44); Carbon Dioxide 30 mmol/L (22-29); Chloride 97 mmol/L (98-107); Estimated GFR-MDRD 7; Glucose 95 mg/dL (70-105); Potassium 5.1 mmol/L (3.5-5.1); Sodium 137 mmol/L (136-145)
--- NOTE | 2018-10-22 08:03 | PDOC.PN ---
- Subjective Encounter Start Date: 10/22/18 Encounter Start Time: 08:01 Subjective: feels very well. no new complaints excpet feels anxious about Sx - Objective Resuscitation Status - Order Detail: 10/19/18 20:53 Resuscitation Status Routine Resuscitation Status: FULL: Full Resuscitation MAR Reviewed: Yes Vital Signs & Weight: Vital Signs (12 hours) Temp Pulse Resp BP BP Pulse Ox 10/22/18 07:46 98.2 F 80 18 168/96 H 100 10/22/18 03:32 98.1 F 67 16 134/80 98 10/21/18 23:01 98.4 F 66 16 152/83 H 97 10/21/18 20:10 100 Weight Weight 189 lb Result Diagrams: 10/22/18 05:08 10/22/18 05:08 Additional Labs: Accuchecks 10/22/18 10/21/18 10/21/18 05:39 20:32 16:52 POC Glucose 96 121 H 174 H 10/21/18 13:03 POC Glucose 74 Microbiology 10/19/18 19:50 Misc:See specimen description - Pending Bacterial Culture - Preliminary Staphylococcus aureus 10/19/18 19:50 Misc:See specimen description - Pending Bacterial Culture - Preliminary Staphylococcus aureus 10/19/18 17:54 Venous blood - Right Hand Blood Culture - Preliminary NO GROWTH AT 48 HOURS 10/19/18 17:38 Venous blood - Right Arm Blood Culture - Preliminary NO GROWTH AT 48 HOURS Phys Exam - Physical Examination Constitutional: NAD HEENT: PERRLA, moist MMs, sclera anicteric, oral pharynx no lesions scalp wound little dry today Neck: no nodes, no JVD, supple, full ROM Respiratory: no wheezing, no rales, no rhonchi, clear to auscultation bilateral Cardiovascular: RRR, no significant murmur, no rub Gastrointestinal: soft, non-tender, no distention, positive bowel sounds Musculoskeletal: no edema, pulses present Neurological: non-focal, normal sensation, moves all 4 limbs Psychiatric: normal affect, A&O x 3 Skin: no rash Dx/Plan (1) Acute osteomyelitis of cranium Code(s): M86.18 - OTHER ACUTE OSTEOMYELITIS, OTHER SITE Status: Acute Comment: OR today for removal of bone flap by NS.. HD stable. cont ABx (2) CHF (congestive heart failure) Code(s): I50.9 - HEART FAILURE, UNSPECIFIED Status: Chronic Comment: ef of 35% on stress test 2017.on PEPE-I w BB.on asa and statin.Repeat ECHO oredered.Cardiology consulted for Pre-OP. (3) DM type 2 (diabetes mellitus, type 2) Status: Chronic Qualifiers: Diabetes mellitus prison insulin use: without prison use Diabetes mellitus complication status: with kidney complications Diabetes mellitus complication detail: with chronic kidney disease Chronic kidney disease stage : on chronic dialysis Qualified Code(s): E11.22 - Type 2 diabetes mellitus with diabetic chronic kidney disease; N18.6 - End stage renal disease; Z99.2 - Dependence on renal dialysis (4) ESRD (end stage renal disease) Code(s): N18.6 - END STAGE RENAL DISEASE Status: Chronic (5) HTN (hypertension) Code(s): I10 - ESSENTIAL (PRIMARY) HYPERTENSION Status: Chronic Qualifiers: Hypertension type: essential hypertension Qualified Code(s): I10 - Essential (primary) hypertension (6) Seizure disorder Code(s): G40.909 - EPILEPSY, UNSP, NOT INTRACTABLE, WITHOUT STATUS EPILEPTICUS Status: Chronic Comment: on AEDs - Plan plan discussed w/ family, continue antibiotics, PT/OT, incentive spirometry, DVT proph w/SCDs OR today for bone flap removal.empiric ABx -: appreciate cardiology input.cont cardioprudent meds. monitor Fluid status -: am lab -: no neurological deficits * . Review of Systems - Review of Systems Constitutional: negative: fever, chills, sweats, weakness, malaise, other Eyes: negative: Pain, Vision Change, Conjunctivae Inflammation, Eyelid Inflammation, Redness, Other ENT: negative: Ear Pain, Ear Discharge, Nose Pain, Nose Discharge, Nose Congestion, Mouth Pain, Mouth Swelling, Throat Pain, Throat Swelling, Other Respiratory: negative: Cough, Dry, Shortness of Breath, Hemoptysis, SOB with Excertion, Pleuritic Pain, Sputum, Wheezing Cardiovascular: negative: chest pain, palpitations, orthopnea, paroxysmal nocturnal dyspnea, edema, light headedness, other Gastrointestinal: negative: Nausea, Vomiting, Abdominal Pain, Diarrhea, Constipation, Melena, Hematochezia, Other Genitourinary: negative: Dysuria, Frequency, Incontinence, Hematuria, Retention , Other Musculoskeletal: negative: Neck Pain, Shoulder Pain, Arm Pain, Back Pain, Hand Pain, Leg Pain, Foot Pain, Other Skin: negative: Rash, Lesions, Edwar, Bruising, Other Neurological: negative: Weakness, Numbness, Incoordination, Change in Speech, Confusion, Seizures, Other - Medications/Allergies Allergies/Adverse Reactions: Allergies Allergy/AdvReac Type Severity Reaction Status Date / Time Penicillins Allergy Intermediate Hives Verified 08/28/16 11:01 Medications: Current Medications Acetaminophen (Tylenol) 650 mg PO Q4H PRN PRN Reason: Headache/Fever/Mild Pain (1-3) Last Admin: 10/21/18 13:11 Dose: 650 mg Amantadine HCl (Symmetrel) 100 mg PO DAILY [facility] Last Admin: 10/21/18 13:22 Dose: Not Given Amlodipine Besylate (Norvasc) 5 mg PO DAILY [facility] Last Admin: 10/21/18 13:22 Dose: Not Given Aspirin (Aspirin Chewable) 81 mg PO DAILY [facility] Last Admin: 10/21/18 13:22 Dose: Not Given Atorvastatin Calcium (Lipitor) 40 mg PO HS [facility] Last Admin: 10/21/18 21:21 Dose: 40 mg Carvedilol (Coreg) 3.125 mg PO BID [facility] Last Admin: 10/21/18 21:21 Dose: 3.125 mg Dextrose/Water (Dextrose 50%) 25 gm IVP PRN PRN PRN Reason: HYPOGLYCEMIA PROTOCOL Glucagon (Glucagon) 1 mg IM PRN PRN PRN Reason: HYPOGLYCEMIA PROTOCOL Hydralazine HCl (Apresoline) 25 mg PO TID [facility] Last Admin: 10/21/18 21:22 Dose: 25 mg Hydralazine HCl (Apresoline) 10 mg SLOW IVP Q4H PRN PRN Reason: SBP > 180 and HR < 70 Vancomycin HCl 1.25 gm/ Sodium (Chloride) 250 mls @ 166.667 mls/hr IVPB WILLCALL [facility] Vancomycin HCl 1 gm/ Device 200 mls @ 200 mls/hr IVPB [facility]CALL [facility] Vancomycin HCl 750 mg/ Sodium (Chloride) 250 mls @ 250 mls/hr IVPB [facility] Vancomycin HCl 500 mg/ Sodium (Chloride) 100 mls @ 100 mls/hr IVPB [facility] Dextrose/Water (D5w) 1,000 mls @ 0 mls/hr IV INF PRN PRN Reason: HYPOGLYCEMIA PROTOCOL Ceftriaxone Sodium 2 gm/ (Sodium Chloride) 100 mls @ 200 mls/hr IVPB 1500 [facility] Last Admin: 10/21/18 15:19 Dose: 100 mls Insulin Human Lispro (Humalog) 0 units SC .MILD SLIDING SCALE PRN; Protocol PRN Reason: MILD SLIDING SCALE Last Admin: 10/20/18 11:27 Dose: 2 unit Lacosamide (Vimpat) 50 mg PO BID [facility] Last Admin: 10/21/18 21:22 Dose: 50 mg Lisinopril (Zestril) 2.5 mg PO DAILY [facility] Last Admin: 10/21/18 13:21 Dose: Not Given Miscellaneous Medication (Pharmacy To Dose) 1 each IVPB ONE PRN PRN Reason: DOSING Stop: 11/18/18 21:37 Hold Vancomycin For (Level >20) 0 each FS .AT DIALYSIS [facility] Ondansetron HCl (Zofran) 4 mg IVP Q6H PRN PRN Reason: Nausea/Vomiting Ferric Citrate [ (Auryxia] 210 Mg) 0 each PO TID [facility] Phenytoin Sodium (Dilantin Er) 400 mg PO QPM [facility] Last Admin: 10/21/18 21:20 Dose: 400 mg Saccharomyces Boulardii (Florastor) 250 mg PO DAILY [facility] Sertraline HCl (Zoloft) 50 mg PO DAILY [facility] Last Admin: 10/21/18 13:21 Dose: Not Given Sevelamer Carbonate (Renvela) 1,600 mg PO TID [facility] Last Admin: 10/21/18 21:20 Dose: 1,600 mg Tramadol HCl (Ultram) 50 mg PO Q6H PRN PRN Reason: Pain
--- NOTE | 2018-10-22 09:17 | PRG ---
DATE OF SERVICE: 10/22/2018 SUBJECTIVE: Mr. Ayala is a 43-year-old male with ESRD and was admitted due to an infected craniotomy bone flap. He is on empiric IV antibiotics. Neurosurgery has been consulted as well as ID. The plan is to have that cranial flap removed tomorrow. He will be flap free for quite some time until the infection is cleared and a revision in the near future. No other complaints today. OBJECTIVE: VITAL SIGNS: Blood pressure is 168/96, heart rate 80, respiratory rate 18, temperature 98.2, pulse ox 100%. GENERAL EXAM: The patient is awake, alert, comfortable, not in distress. SKIN: Adequate turgor. HEENT: He has a pinkish conjunctivae. Anicteric sclerae. NECK: No neck mass. No carotid bruits. No JVD. CHEST: No deformities. LUNGS: Clear breath sounds. No wheezing. No crackles. HEART: Normal sinus rhythm. No murmur. No gallops or rubs. ABDOMEN: Globular, soft, nontender. No masses. EXTREMITIES: No edema. No deformities. MEDICATIONS: Medications of October 22, 2018, was reviewed. LABORATORY DATA: Laboratories of August 21, 2019, hemoglobin 12.1. Sodium 137, potassium 5.1, chloride 97, carbon dioxide 30, BUN 35, creatinine 8.11, glucose 95, and calcium 9.3. ASSESSMENT AND PLAN: 1. End-stage renal disease, stable. We will continue current Friday, Friday and Friday hemodialysis regimen. Fluid removal as tolerated. The patient is currently tolerating the current dialysis regimen. 2. Infection of the scalp/flap - on IV antibiotics. Possible revision, surgical , by Neurosurgery is being contemplated. Overall, I agree with current management. Job ID: [id number] [facility]
--- NOTE | 2018-10-22 10:13 | PRG ---
DATE OF SERVICE: 10/22/2018 Mr. Ayala has an infected bone flap with possible extension to the epidural space. His bone needs to be removed. We are planning on doing this today. Job ID: [id number]
[2018-10-22] MEDS: Amlodipine 5 MG TAB PO SCH (10:39)
[2018-10-22] MEDS: hydrALAZINE 25 MG TAB PO SCH ×3 (10:40→19:47)
[2018-10-22] MEDS: Carvedilol 3.125 MG TAB PO SCH ×2 (10:40→19:52)
[2018-10-22] MEDS: Lisinopril 2.5 MG TAB PO SCH (10:40)
[2018-10-22] MEDS: Lacosamide 50 mg Tablet PO SCH ×2 (10:40→20:03)
[2018-10-22] MEDS: Amantadine HCl 100 mg Capsule PO SCH (10:41)
[2018-10-22] MEDS: Sevelamer Carbonate 800 MG TAB PO SCH ×3 (10:41→19:52)
[2018-10-22] MEDS: Saccharomyces boulardii 250 MG CAP PO SCH (10:41)
[2018-10-22] MEDS: Aspirin Chewable 81 MG TAB PO SCH (10:41)
[2018-10-22] MEDS ORDERED: Glycopyrrolate 0.2 MG/ML 5 ML SYRINGE ONE (12:16)
[2018-10-22] MEDS ORDERED: PROPOFOL 200 MG/20 ML VIAL ONE (12:16)
[2018-10-22] MEDS ORDERED: ePHEDrine 50 MG/ML VIAL ONE (12:16)
[2018-10-22] MEDS ORDERED: Esmolol 100 MG/10 ML VIAL ONE (12:16)
[2018-10-22] MEDS ORDERED: Rocuronium Bromide 10 MG/ML (10ML VIAL) ONE (12:16)
[2018-10-22] MEDS ORDERED: Ondansetron PF 4 MG/2 ML Vial ONE (12:16)
[2018-10-22] MEDS ORDERED: Thrombin 5000 UNITS/5 ML VIAL ONE (12:31)
[2018-10-22] MEDS ORDERED: Midazolam HCl 2 mg/2 ml Vial ONE ×2 (12:54→14:49)
[2018-10-22] MEDS ORDERED: Fentanyl 100 MCG/2 ML VIAL ONE ×5 (12:54→16:59)
--- NOTE | 2018-10-22 13:38 | CON ---
DATE OF CONSULTATION: HISTORY OF PRESENT ILLNESS: The patient is a 43-year-old gentleman who needs to undergo scalp surgery. The patient has a history of cerebrovascular accident and coronary artery disease. He suffered a cerebrovascular accident in May of 2007. The patient was found to have an intracerebral hemorrhage. The patient also was diagnosed with a cardiomyopathy. He underwent a Cardiolite stress test revealed a low ejection fraction with no evidence of ischemia. The patient was placed on medical therapy. He underwent a cardiac catheterization in June of 2017. He was found to have a moderately decreased left ventricular ejection fraction of 35% to 40%. The LAD had a 20% distal stenosis. The right coronary artery had a 40% proximal stenosis. The patient has been on medical therapy. He has not come for followup. The patient denies having any chest pain. PAST MEDICAL HISTORY: 1. Coronary artery disease. 2. Hypertension. 3. Dyslipidemia. 4. Seizure disorder. 5. History of intracerebral hemorrhage. PAST SURGICAL HISTORY: Craniotomy and AV fistula surgery. SOCIAL HISTORY: Former smoker. MEDICATIONS: See nursing list. ALLERGIES: NO KNOWN DRUG ALLERGIES. FAMILY HISTORY: No strong family history of heart disease. PHYSICAL EXAMINATION: GENERAL: Well-developed gentleman, in no acute distress. VITAL SIGNS: Blood pressure 168/93. NECK: No jugular venous distention. LUNGS: Clear to auscultation. HEART: Regular rate and rhythm. Normal S1, S2. ABDOMEN: Nondistended. EXTREMITIES: No edema. LABORATORY RESULTS: White blood cell count 4.3, hemoglobin 12.1, hematocrit 36.6, platelets 171. Sodium 137, potassium 5.1, chloride 97, bicarbonate 30, BUN 35, creatinine is 8.1. EKG revealed normal sinus rhythm, normal ECG. IMPRESSION: 1. Osteomyelitis of the scalp. 2. History of [id number] coronary artery disease. 3. Cardiomyopathy. 4. Hypertension. 5. History of intracerebral hemorrhage. This gentleman needs to undergo surgery. His EKG is unremarkable. He has known [id number] coronary artery disease. The patient is very active and has no symptoms. The patient should be able to proceed with surgery and is at acceptable risk. Job ID: [id number] [facility]
[2018-10-22] MEDS ORDERED: Sodium Chloride 0.9% 10 ML ONE (14:25)
[2018-10-22] MEDS ORDERED: HYDROmorphone 2 MG/ML VIAL ONE (16:02)
[2018-10-22] MEDS ORDERED: hydrALAZINE 20 MG/ML VIAL ONE (16:14)
[2018-10-22] MEDS ORDERED: Promethazine HCl 25 MG/ML VIAL ONE (16:24)
[2018-10-22] MEDS ORDERED: Diphenoxylate HCl/Atropine Tablet PO PRN (16:45)
[2018-10-22] MEDS: Ferric Citrate [Auryxia] 210 MG PO SCH ×2 (17:05→17:06)
[2018-10-22] MEDS: cefTRIAXone\\ROCEPHIN 2 GM in Sodium Chloride 0.9% 100 ML IVPB SCH (17:55)
[2018-10-22] MEDS: Ondansetron PF 4 MG/2 ML Vial IVP PRN (19:07)
[2018-10-22] MEDS: traMADol HCl 50 MG TAB PO PRN (19:47)
[2018-10-22] MEDS: Lisinopril 5 MG TAB PO SCH (19:48)
[2018-10-22] MEDS: Atorvastatin Calcium 40 MG TAB PO SCH (19:52)
[2018-10-23] MEDS: Acetaminophen 325 MG TAB PO PRN ×4 (03:10→20:38)
[2018-10-23] MEDS: traMADol HCl 50 MG TAB PO PRN ×2 (03:10→10:24)
[2018-10-23 05:15] LABS: #Lymphocytes 1.3 thou/uL (1.20-3.40); #Monocytes 0.6 thou/uL (0.11-0.59); #Neutrophils 4.7 thou/uL (1.40-6.50); %Basophils 0.4 % (0.0-1.0); %Eosinophils 0.7 % (0.0-10.0); %Lymphocytes 19.8 % (21.0-51.0); %Monocytes 9.2 % (0.0-10.0); Hemoglobin 10.5 g/dL (14.0-18.0); Mean Corpuscular HGB CONC 33.2 g/dL (32.0-36.0); Mean Corpuscular Hemoglobin 33.9 pg (27.0-31.0); Mean Platelet Volume 6.8 fL (7.4-10.4); Platelet Count 164 thou/uL (130-400); RBC Distribution Width 13.5 % (11.5-14.5); White Blood Cell (WBC) Count 6.8 thou/uL (4.8-10.8)
[2018-10-23 05:22] LABS: Anion Gap 18 mmol/L (10-20); BUN (Urea Nitrogen) 49 mg/dL (8.9-20.6); Calc. Creatinine Clearance 11 mL/min (70-130); Calcium 8.9 mg/dL (7.8-10.44); Carbon Dioxide 27 mmol/L (22-29); Chloride 95 mmol/L (98-107); Estimated GFR-MDRD 6; Glucose 80 mg/dL (70-105); Potassium 5.5 mmol/L (3.5-5.1); Sodium 134 mmol/L (136-145)
--- NOTE | 2018-10-23 07:42 | CT ---
CT OF THE BRAIN WITHOUT IV COTNRAST: INDICATION: History of cranial flap removal. COMPARISON: CT of the brain dated 10/19/2018 and an MRI of the brain dated 10/20/2018. FINDINGS: Since the comparison CT examination, there has been interval removal of the right frontal parietal cr aniotomy bone flap and further removal of portions of the calvarium surrounding the bone flap along t he right frontal skull, right temporal skull, and right parietal skull. There is mixed density overl naif the dura of the craniectomy defect site likely related to hemorrhage from the bone flap removal. There are scattered areas of gas within the soft tissues overlying the craniectomy site consistent with the patient's recent postop state. A surgical drain is seen within the craniectomy site. No de finite acute infarct, hemorrhage, or hydrocephalus is present. Areas of encephalomalacia involving t he anterolateral aspect of the right temporal lobe are stable. Basilar cisterns are patent. Septum pellucidum and third ventricle are midline. IMPRESSION: 1. Interval revision of the right frontoparietal craniectomy with removal of previously seen bone fl ap and further removal of the margin of the bone involving the right frontoparietal temporal skull welch rrounding the previously seen bone flap. 2. Mixed soft tissue gas and hemorrhage overlying the craniectomy site without significant underlyin g mass effect. Surgical drain is seen within the craniectomy site. 3. Stable encephalomalacia of the right temporal lobe. POS: ANNIE
[2018-10-23 08:31] LABS: Vancomycin, Random 20.9 ug/mL (See Comment)
[2018-10-23] MEDS: Ondansetron PF 4 MG/2 ML Vial IVP PRN (08:41)
[2018-10-23] MEDS ORDERED: Losartan 25 MG TAB PO SCH (09:00)
--- NOTE | 2018-10-23 09:00 | EKG ---
Test Reason : Blood Pressure : / mmHG Vent. Rate : 065 BPM Atrial Rate : 065 BPM P-R Int : 162 ms QRS Dur : 088 ms QT Int : 404 ms P-R-T Axes : 053 008 059 degrees QTc Int : 420 ms Normal sinus rhythm Normal ECG When compared with ECG of 26-JUL-2018 03:40, No significant change was found Confirmed by DR. Kandi DEL VALEL ([id number]) on 10/23/2018 9:00:10 AM Referred By: GINETTE Confirmed By:DR. Kandi DEL VALLE
[2018-10-23] MEDS ORDERED: Albumin 5% 0 ML ONE (09:25)
[2018-10-23] MEDS ORDERED: Lisinopril 10 MG TAB PO SCH (09:30)
--- NOTE | 2018-10-23 09:31 | PRG ---
DATE OF SERVICE: 10/23/2018 SUBJECTIVE: Mr. Ayala is a 43-year-old male with ESRD and followed by the [facility] for his maintenance hemodialysis. He was admitted for infected cranial flap. He underwent surgical procedure where the cranial flap was removed. He continues to be on IV antibiotics. Plan is to dialyze him today. No other complaints. No chest pain or shortness of breath. He does complain of occasional headache. OBJECTIVE: VITAL SIGNS: Blood pressure is 139/75, heart rate 81, respiratory rate 10, and pulse ox 100%. GENERAL: Awake, alert, comfortable, not in distress. SKIN: Adequate turgor. HEENT: He has pinkish conjunctivae. Anicteric sclerae. No neck mass. No carotid bruits. No JVD. CHEST: No deformities. LUNGS: Clear breath sounds. HEART: Normal sinus rhythm. No murmurs, no gallops, no rubs. ABDOMEN: Globular, soft, nontender. No masses. EXTREMITIES: No edema. No deformities. MEDICATIONS: Medications of October 23, 2018 reviewed. LABORATORY DATA: Laboratories of October 23, 2018; white count 6.8, hemoglobin 10.5. Sodium 134, potassium 5.5, chloride 95, carbon dioxide 27, BUN 49, creatinine 10.2, glucose 80, calcium 8.9. ASSESSMENT AND PLAN: 1. End-stage renal disease. We will plan for hemodialysis for 3-1/2 hours. Fluid removal only as tolerated. Avoiding heparin due to the recent surgery. 2. Infected cranial flap - on IV antibiotics. Cranial flap has been surgically removed by Dr. Montiel. Doing well. Overall agree with current management. Job ID: [id number]
--- NOTE | 2018-10-23 09:38 | PRG ---
DATE OF SERVICE: 10/23/2018 SUBJECTIVE: Mr. Ayala is postoperative day 1, removal of infected skull. Microbiology shows Staphylococcus. His drain output has been approximately 15 mL overnight. We will plan to transfer him to the floor. I anticipate removal of the drain tomorrow. The patient may be dismissed whenever his antibiotics are finalized. We will arrange follow up. The patient does tell me he thinks he still has this helmet from 2 years ago and if he does not, he will need a helmet fabricated and to be worn when he was out of bed. Job ID: [id number]
[2018-10-23] MEDS: Amantadine HCl 100 mg Capsule PO SCH (10:22)
[2018-10-23] MEDS: Amlodipine 5 MG TAB PO SCH (10:22)
[2018-10-23] MEDS: Saccharomyces boulardii 250 MG CAP PO SCH (10:23)
[2018-10-23] MEDS: Aspirin Chewable 81 MG TAB PO SCH (10:23)
[2018-10-23] MEDS: Sevelamer Carbonate 800 MG TAB PO SCH ×3 (10:24→20:45)
[2018-10-23] MEDS: Lisinopril 5 MG TAB PO SCH (10:35)
[2018-10-23] MEDS: Lisinopril 2.5 MG TAB PO SCH (10:35)
[2018-10-23] MEDS: Lacosamide 50 mg Tablet PO SCH ×2 (11:23→21:09)
[2018-10-23] MEDS: Carvedilol 3.125 MG TAB PO SCH ×2 (11:24→20:45)
[2018-10-23] MEDS: hydrALAZINE 25 MG TAB PO SCH ×3 (11:24→20:44)
--- NOTE | 2018-10-23 11:26 | OP ---
DATE OF PROCEDURE: 10/22/2018 WOUND CLASSIFICATION: Type 4 wound, dirty infected. NATURAL GAS INSPECTOR: Wagner Arriaga PA-C. PREOPERATIVE DIAGNOSIS: Right skull osteomyelitis. PROCEDURES PERFORMED: Removal of infected right skull flap with intraoperative cultures and washout and re-closure of wound. DESCRIPTION OF PROCEDURE: After informed consent was obtained from the patient, the patient was brought to the OR. Proper patient, pause, and identification were carried out. He was placed under excellent anesthesia. His head turned to the left. Prior wound was identified along with purulent material emanating from one portion of the wound. The patient states he had been picking at his wound. The hair was clipped and it was sterilely cleansed, prepped, and draped. We then opened the wound. Purulent material was identified and cultured. The scar was removed along with all titanium plates and screws and sent to microbiology. Copious irrigation occurred. There was some epidural phlegmon, but no evidence of breach of the dura with no CSF leak. Copious irrigation occurred throughout with 2 L of bacitracin irrigation. The scalp was then closed over drain. The patient then recovered from anesthesia. Job ID: [id number]
[2018-10-23 11:41] LABS: HBSAg Index 0.42 S/CO (0-0.99); Hep B Surf Ag Non-Reactive S/CO (NonReactive)
--- NOTE | 2018-10-23 12:17 | PDOC.PN ---
- Subjective Encounter Start Date: 10/23/18 Encounter Start Time: 07:30 Subjective: awake, no c/o weakness or sob -: is moving all extremities, mild pain over scalp - Objective Resuscitation Status - Order Detail: 10/19/18 20:53 Resuscitation Status Routine Resuscitation Status: FULL: Full Resuscitation MAR Reviewed: Yes Vital Signs & Weight: Vital Signs (12 hours) Temp Pulse BP Pulse Ox 10/23/18 11:24 77 119/63 10/23/18 10:35 77 134/72 10/23/18 10:22 77 134/72 10/23/18 08:00 98.3 F 100 10/23/18 03:00 98.0 F Weight Admit Weight 161 lb 13.109 oz Weight 189 lb Most Recent Monitor Data Heart Rate from ECG 71 NIBP 155/90 NIBP BP-Mean 111 Respiration from ECG 14 SpO2 100 I&O: 10/22/18 10/23/18 10/24/18 06:59 06:59 06:59 Intake Total 886.9 240 Output Total 100 0 Balance 786.9 240 Result Diagrams: 10/23/18 04:45 10/23/18 04:45 Additional Labs: Accuchecks 10/23/18 10/22/18 10/22/18 06:31 22:10 16:47 POC Glucose 72 78 108 Phys Exam - Physical Examination HEENT: PERRLA, moist MMs Neck: no JVD, supple Respiratory: no wheezing, no rales Cardiovascular: RRR, no significant murmur Gastrointestinal: soft, non-tender, positive bowel sounds Musculoskeletal: no edema, pulses present Neurological: non-focal, moves all 4 limbs Psychiatric: normal affect, A&O x 3 Dx/Plan (1) Acute osteomyelitis of cranium Code(s): M86.18 - OTHER ACUTE OSTEOMYELITIS, OTHER SITE Status: Acute Comment: s/p removal of bone flap by NS 10/22/2018 (2) CHF (congestive heart failure) Code(s): I50.9 - HEART FAILURE, UNSPECIFIED Status: Resolved Comment: has normal ef on echo 10/23/2018 (3) DM type 2 (diabetes mellitus, type 2) Status: Chronic Qualifiers: Diabetes mellitus senior living insulin use: without manager terminal use Diabetes mellitus complication status: with kidney complications Diabetes mellitus complication detail: with chronic kidney disease Chronic kidney disease stage : on chronic dialysis Qualified Code(s): E11.22 - Type 2 diabetes mellitus with diabetic chronic kidney disease; N18.6 - End stage renal disease; Z99.2 - Dependence on renal dialysis (4) ESRD (end stage renal disease) Code(s): N18.6 - END STAGE RENAL DISEASE Status: Chronic (5) HTN (hypertension) Code(s): I10 - ESSENTIAL (PRIMARY) HYPERTENSION Status: Chronic Qualifiers: Hypertension type: essential hypertension Qualified Code(s): I10 - Essential (primary) hypertension (6) Seizure disorder Code(s): G40.909 - EPILEPSY, UNSP, NOT INTRACTABLE, WITHOUT STATUS EPILEPTICUS Status: Chronic Comment: on AEDs - Plan is neuro/hemodynamically stable -: on vanc and ceftriaxone, cultures are growing mssa -: await full culture and opinion reg outpt antibiotics -: to mobilize per nsx adv, needs to wear helmet per nsx -: continue dilantin, lipitor, norvasc, coreg, hydralazine and lisinopril * . Review of Systems - Medications/Allergies Allergies/Adverse Reactions: Allergies Allergy/AdvReac Type Severity Reaction Status Date / Time Penicillins Allergy Intermediate Hives Verified 08/28/16 11:01 Medications: Current Medications Acetaminophen (Tylenol) 650 mg PO Q4H PRN PRN Reason: Headache/Fever/Mild Pain (1-3) Last Admin: 10/23/18 12:14 Dose: 650 mg Amantadine HCl (Symmetrel) 100 mg PO DAILY [facility] Last Admin: 10/23/18 10:22 Dose: 100 mg Amlodipine Besylate (Norvasc) 5 mg PO DAILY [facility] Last Admin: 10/23/18 10:22 Dose: 5 mg Aspirin (Aspirin Chewable) 81 mg PO DAILY [facility] Last Admin: 10/23/18 10:23 Dose: 81 mg Atorvastatin Calcium (Lipitor) 40 mg PO HS [facility] Last Admin: 10/22/18 19:52 Dose: 40 mg Carvedilol (Coreg) 3.125 mg PO BID [facility] Last Admin: 10/23/18 11:24 Dose: 3.125 mg Cholecalciferol (Vitamin D3) 2,000 units PO DAILY [facility] Last Admin: 10/23/18 10:23 Dose: 2,000 units Dextrose/Water (Dextrose 50%) 25 gm IVP PRN PRN PRN Reason: HYPOGLYCEMIA PROTOCOL Diphenoxylate HCl/Atropine (Lomotil) 1 tab PO PRN PRN PRN Reason: Diarrhea/Loose Stools Glucagon (Glucagon) 1 mg IM PRN PRN PRN Reason: HYPOGLYCEMIA PROTOCOL Hydralazine HCl (Apresoline) 25 mg PO TID [facility] Last Admin: 10/23/18 11:24 Dose: 25 mg Hydralazine HCl (Apresoline) 10 mg SLOW IVP Q4H PRN PRN Reason: SBP > 180 and HR < 70 Vancomycin HCl 1.25 gm/ Sodium (Chloride) 250 mls @ 166.667 mls/hr IVPB WILLCALL [facility] Vancomycin HCl 1 gm/ Device 200 mls @ 200 mls/hr IVPB [facility] Vancomycin HCl 750 mg/ Sodium (Chloride) 250 mls @ 250 mls/hr IVPB [facility] Vancomycin HCl 500 mg/ Sodium (Chloride) 100 mls @ 100 mls/hr IVPB [facility] Dextrose/Water (D5w) 1,000 mls @ 0 mls/hr IV INF PRN PRN Reason: HYPOGLYCEMIA PROTOCOL Ceftriaxone Sodium 2 gm/ (Sodium Chloride) 100 mls @ 200 mls/hr IVPB 1500 [facility] Last Admin: 10/22/18 17:55 Dose: 100 mls Insulin Human Lispro (Humalog) 0 units SC .MILD SLIDING SCALE PRN; Protocol PRN Reason: MILD SLIDING SCALE Last Admin: 10/20/18 11:27 Dose: 2 unit Lacosamide (Vimpat) 50 mg PO BID [facility] Last Admin: 10/23/18 11:23 Dose: 50 mg Lisinopril (Zestril) 10 mg PO BID [facility] Miscellaneous Medication (Pharmacy To Dose) 1 each IVPB ONE PRN PRN Reason: DOSING Stop: 11/18/18 21:37 Hold Vancomycin For (Level >20) 0 each FS .AT DIALYSIS [facility] Ondansetron HCl (Zofran) 4 mg IVP Q6H PRN PRN Reason: Nausea/Vomiting Last Admin: 10/23/18 08:41 Dose: 4 mg Phenytoin Sodium (Dilantin Er) 400 mg PO QPM [facility] Last Admin: 10/22/18 19:49 Dose: 400 mg Rosuvastatin Calcium (Crestor) 10 mg PO [facility] Saccharomyces Boulardii (Florastor) 250 mg PO DAILY [facility] Last Admin: 10/23/18 10:23 Dose: 250 mg Sertraline HCl (Zoloft) 50 mg PO DAILY [facility] Last Admin: 10/23/18 10:23 Dose: 50 mg Sevelamer Carbonate (Renvela) 1,600 mg PO TID [facility] Last Admin: 10/23/18 10:24 Dose: 1,600 mg Tramadol HCl (Ultram) 50 mg PO Q6H PRN PRN Reason: Pain Last Admin: 10/23/18 10:24 Dose: 50 mg
[2018-10-23] MEDS ORDERED: Morphine 2 MG/ML SYRINGE SLOW IVP PRN (12:59)
--- NOTE | 2018-10-23 14:40 | PRG ---
DATE OF SERVICE: 10/23/2018 SUBJECTIVE: Mr. Ayala had the surgical intervention. Operative report was reviewed. The area was clipped. Purulent material identified and cultured. Scar was removed along with all titanium plates and screws and sent to Microbiology. Irrigation carried out. There was some evidence of epidural phlegmon, but no breach of the dura with no leak noted. Mild headaches. No shortness of breath, cough, or sputum production. No abdominal pain or diarrhea. No genitourinary symptoms. OBJECTIVE: VITAL SIGNS: Normal. He is afebrile. HEENT: Ocular movements are conjugate. LUNGS: Clear. HEART: S1 and S2. Regular rate. ABDOMEN: Soft, not distended. LABORATORY DATA: White cell count 6.8, hemoglobin 10.5, platelets 164. New creatinine 10.20, sodium 134. 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 He is currently on ceftriaxone daily. 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 The patient now will be eligible for treatment of dialysis. In his case, I would advise cefazolin 3 g after each dialytic treatment as well as oral quinolone with either levofloxacin or ciprofloxacin dose adjusted for renal function. Treat for protracted period of time, probably end date of therapy will be December 21. Weekly labs, CRP, CBC, though no drug levels will be required with this combination. Job ID: [id number]
[2018-10-23] MEDS ORDERED: Morphine 4 MG/ML VIAL SLOW IVP PRN (18:15)
[2018-10-23] MEDS: cefTRIAXone\\ROCEPHIN 2 GM in Sodium Chloride 0.9% 100 ML IVPB SCH (20:39)
[2018-10-23] MEDS: Lisinopril 10 MG TAB PO SCH (20:45)
[2018-10-23] MEDS: Rosuvastatin 10 MG TAB PO SCH (20:45)
[2018-10-23] MEDS: Atorvastatin Calcium 40 MG TAB PO SCH (20:46)
[2018-10-24] MEDS: Acetaminophen 325 MG TAB PO PRN ×4 (01:38→16:13)
[2018-10-24] MEDS: Lisinopril 10 MG TAB PO SCH ×2 (08:18→21:56)
[2018-10-24] MEDS: Sevelamer Carbonate 800 MG TAB PO SCH ×3 (08:19→21:55)
[2018-10-24] MEDS: Amlodipine 5 MG TAB PO SCH (08:19)
[2018-10-24] MEDS: Ibuprofen 200 MG TAB PO PRN ×2 (08:19→21:57)
[2018-10-24] MEDS: Carvedilol 3.125 MG TAB PO SCH ×2 (08:19→21:56)
[2018-10-24] MEDS: hydrALAZINE 25 MG TAB PO SCH ×3 (08:20→21:57)
[2018-10-24] MEDS: Aspirin Chewable 81 MG TAB PO SCH (08:24)
[2018-10-24] MEDS: Amantadine HCl 100 mg Capsule PO SCH (08:24)
[2018-10-24] MEDS: Saccharomyces boulardii 250 MG CAP PO SCH (08:24)
--- NOTE | 2018-10-24 09:11 | PRG ---
DATE OF SERVICE: 10/24/2018 Mr. Ayala is 2 days out from bone flap resection following osteomyelitis, previous craniotomy. Cultures showed methicillin-resistant Staphylococcus aureus infection and Dr. Collins is following of the Infectious Disease and we will follow his recommendations per infection. Today, Mr. Ayala is doing well. He is resting comfortably in his hospital bed. We removed the drain in coverage of his surgical wounds. The patient states that he had his original home medications approximately 3 years ago and he is in the room. He will need when he gets up and moves around. There were no reported events last night. T-max is 99 degrees, respirations 20, heart rate 80, O2 saturation 99% on room air, blood pressure 146/78. The patient is moving all 4 extremities well. No new neurologic deficits. Responds appropriately. We have discontinued the drain. Once Dr. Collins has had a chance to address new culture growth of MRSA and proper antibiotic can be prescribed pt. may be discharged. Job ID: [id number] [facility]
--- NOTE | 2018-10-24 09:48 | PRG ---
DATE OF SERVICE: 10/24/2018 I saw Mr. Ayala in his hospital room this morning. He is recovering from removal of infected bone flap. 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 He has made a nice recovery from it. Unfortunately, due to scratching and picking on his wound, he had a tiny dehiscence and then infection of the bone requiring removal of that. He is on IV antibiotics. Overnight, I do not see any record of fevers. His blood pressures have been in the 140s to 150s. He complains of neck pain and shoulder pain, but otherwise doing reasonably well. His cultures show MRSA, which is a new finding. His antibiotics needed to be adjusted before discharge. Job ID: [id number]
[2018-10-24] MEDS: Lacosamide 50 mg Tablet PO SCH ×2 (10:57→21:57)
--- NOTE | 2018-10-24 12:33 | PDOC.PN ---
- Subjective Encounter Start Date: 10/24/18 Encounter Start Time: 10:00 Subjective: no headache, had dressing change this am -: is amb in room and moving all extremities -: mild edema over right eyelid, no visual disturbances - Objective Resuscitation Status - Order Detail: 10/19/18 20:53 Resuscitation Status Routine Resuscitation Status: FULL: Full Resuscitation MAR Reviewed: Yes Vital Signs & Weight: Vital Signs (12 hours) Temp Pulse Resp BP BP Pulse Ox 10/24/18 11:52 98.9 F 84 18 156/99 H 100 10/24/18 07:20 98.1 F 73 20 174/93 H 98 10/24/18 04:00 98.4 F 77 20 146/88 H 994 H Weight Admit Weight 161 lb 13.109 oz Weight 189 lb Most Recent Monitor Data Heart Rate from ECG 71 NIBP 155/90 NIBP BP-Mean 111 Respiration from ECG 14 SpO2 100 I&O: 10/23/18 10/24/18 10/25/18 06:59 06:59 06:59 Intake Total 886.9 1140 Output Total 100 10 Balance 786.9 1130 Result Diagrams: 10/23/18 04:45 10/23/18 04:45 Additional Labs: Accuchecks 10/24/18 10/23/18 06:45 20:56 POC Glucose 87 115 H Phys Exam - Physical Examination has dressing over his head HEENT: PERRLA, moist MMs Neck: no JVD, supple Respiratory: no wheezing, no rales Cardiovascular: RRR, no significant murmur Gastrointestinal: soft, non-tender, positive bowel sounds Musculoskeletal: no edema, pulses present Neurological: non-focal, moves all 4 limbs Psychiatric: normal affect, A&O x 3 Dx/Plan (1) Acute osteomyelitis of cranium Code(s): M86.18 - OTHER ACUTE OSTEOMYELITIS, OTHER SITE Status: Acute Comment: s/p removal of bone flap by NS 10/22/2018 (2) CHF (congestive heart failure) Code(s): I50.9 - HEART FAILURE, UNSPECIFIED Status: Resolved Comment: has normal ef on echo 10/23/2018 (3) DM type 2 (diabetes mellitus, type 2) Status: Chronic Qualifiers: 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 use: without retirement use Diabetes mellitus complication status: with kidney complications Diabetes mellitus complication detail: with chronic kidney disease Chronic kidney disease stage : on chronic dialysis Qualified Code(s): E11.22 - Type 2 diabetes mellitus with diabetic chronic kidney disease; N18.6 - End stage renal disease; Z99.2 - Dependence on renal dialysis (4) ESRD (end stage renal disease) Code(s): N18.6 - END STAGE RENAL DISEASE Status: Chronic (5) HTN (hypertension) Code(s): I10 - ESSENTIAL (PRIMARY) HYPERTENSION Status: Chronic Qualifiers: Hypertension type: essential hypertension Qualified Code(s): I10 - Essential (primary) hypertension (6) Seizure disorder Code(s): G40.909 - EPILEPSY, UNSP, NOT INTRACTABLE, WITHOUT STATUS EPILEPTICUS Status: Chronic Comment: on AEDs - Plan has a new culture growing mrsa from surgery -: is on vanc and ceftriaxone, to continue dilantin and vimpat -: dc antibiotics per Dr.Lemos garza -: needs helmet adjusted for safe ambulation -: continue lipitor, norvasc, coreg, lisinopril and hydralazine * . Review of Systems - Medications/Allergies Allergies/Adverse Reactions: Allergies Allergy/AdvReac Type Severity Reaction Status Date / Time Penicillins Allergy Intermediate Hives Verified 08/28/16 11:01 Medications: Current Medications Acetaminophen (Tylenol) 650 mg PO Q4H PRN PRN Reason: Headache/Fever/Mild Pain (1-3) Last Admin: 10/24/18 10:59 Dose: 650 mg Amantadine HCl (Symmetrel) 100 mg PO DAILY [facility] Last Admin: 10/24/18 08:24 Dose: 100 mg Amlodipine Besylate (Norvasc) 5 mg PO DAILY [facility] Last Admin: 10/24/18 08:19 Dose: 5 mg Atorvastatin Calcium (Lipitor) 40 mg PO HS [facility] Last Admin: 10/23/18 20:46 Dose: 40 mg Carvedilol (Coreg) 3.125 mg PO BID [facility] Last Admin: 10/24/18 08:19 Dose: 3.125 mg Cholecalciferol (Vitamin D3) 2,000 units PO DAILY [facility] Last Admin: 10/24/18 08:24 Dose: 2,000 units Dextrose/Water (Dextrose 50%) 25 gm IVP PRN PRN PRN Reason: HYPOGLYCEMIA PROTOCOL Diphenoxylate HCl/Atropine (Lomotil) 1 tab PO PRN PRN PRN Reason: Diarrhea/Loose Stools Glucagon (Glucagon) 1 mg IM PRN PRN PRN Reason: HYPOGLYCEMIA PROTOCOL Hydralazine HCl (Apresoline) 25 mg PO TID [facility] Last Admin: 10/24/18 08:20 Dose: 25 mg Hydralazine HCl (Apresoline) 10 mg SLOW IVP Q4H PRN PRN Reason: SBP > 180 and HR < 70 Vancomycin HCl 1.25 gm/ Sodium (Chloride) 250 mls @ 166.667 mls/hr IVPB WILLCALL [facility] Vancomycin HCl 1 gm/ Device 200 mls @ 200 mls/hr [facility]PB [facility] Vancomycin HCl 750 mg/ Sodium (Chloride) 250 mls @ 250 mls/hr IVPB [facility] Vancomycin HCl 500 mg/ Sodium (Chloride) 100 mls @ 100 mls/hr IVPB [facility] Dextrose/Water (D5w) 1,000 mls @ 0 mls/hr IV INF PRN PRN Reason: HYPOGLYCEMIA PROTOCOL Ibuprofen (Motrin) 400 mg PO Q8H PRN PRN Reason: Pain Last Admin: 10/24/18 08:19 Dose: 400 mg Insulin Human Lispro (Humalog) 0 units SC .MILD SLIDING SCALE PRN; Protocol PRN Reason: MILD SLIDING SCALE Last Admin: 10/20/18 11:27 Dose: 2 unit Lacosamide (Vimpat) 50 mg PO BID [facility] Last Admin: 10/24/18 10:57 Dose: 50 mg Lisinopril (Zestril) 10 mg PO BID [facility] Last Admin: 10/24/18 08:18 Dose: 10 mg Miscellaneous Medication (Pharmacy To Dose) 1 each IVPB ONE PRN PRN Reason: DOSING Stop: 11/18/18 21:37 Morphine Sulfate (Morphine) 2 mg SLOW IVP Q4H PRN PRN Reason: chest Pain/BP elevations Last Admin: 10/24/18 05:28 Dose: 2 mg Hold Vancomycin For (Level >20) 0 each FS .AT DIALYSIS [facility] Ondansetron HCl (Zofran) 4 mg IVP Q6H PRN PRN Reason: Nausea/Vomiting Last Admin: 10/23/18 08:41 Dose: 4 mg Phenytoin Sodium (Dilantin Er) 400 mg PO QPM [facility] Last Admin: 10/23/18 20:46 Dose: 400 mg Rosuvastatin Calcium (Crestor) 10 mg PO HS [facility] Last Admin: 10/23/18 20:45 Dose: 10 mg Saccharomyces Boulardii (Florastor) 250 mg PO DAILY [facility] Last Admin: 10/24/18 08:24 Dose: 250 mg Sertraline HCl (Zoloft) 50 mg PO DAILY [facility] Last Admin: 10/24/18 08:23 Dose: 50 mg Sevelamer Carbonate (Renvela) 1,600 mg PO TID [facility] Last Admin: 10/24/18 08:19 Dose: 1,600 mg
--- NOTE | 2018-10-24 13:19 | PRG ---
DATE OF SERVICE: 10/24/2018 SUBJECTIVE: Mr. Ayala is doing well. He has a little bit of neck pain. No chest pain. No abdominal pain. No diarrhea. No genitourinary symptoms. OBJECTIVE: VITAL SIGNS: His vital signs are normal except for slight elevation of systolic blood pressure. HEENT: Scalp dressing removed. Ocular movements conjugate. LUNGS: Clear. HEART: S1, S2. Regular rate. ABDOMEN: Soft, not distended. EXTREMITIES: Moves extremities equally. LABORATORY DATA: White cell count 6.8, hemoglobin 10.5. Creatinine is 10.20. Microbiology, now we have MRSA retrieved from the skull abscess, which is different than the original growth from the previous scalp bone as well as the wound itself. We will change the discharge antibiotics, therefore, to vancomycin, and the end date of therapy remains the same, which is December 21, after that transition to oral minocycline for 2 to 3 months. I have given orders to the rn case manager hospice for that. Job ID: [id number] [facility]
[2018-10-24] MEDS ORDERED: cefTRIAXone\\ROCEPHIN 2 GM in Sodium Chloride 0.9% 100 ML IVPB SCH (18:00)
[2018-10-24] MEDS: Ferric Citrate [Auryxia] 210 MG PO SCH (20:53)
[2018-10-24] MEDS: Atorvastatin Calcium 40 MG TAB PO SCH (21:56)
[2018-10-24] MEDS: Rosuvastatin 10 MG TAB PO SCH (21:56)
[2018-10-25] MEDS: Lisinopril 10 MG TAB PO SCH ×2 (07:38→20:23)
[2018-10-25] MEDS: Saccharomyces boulardii 250 MG CAP PO SCH (07:39)
[2018-10-25] MEDS: Amlodipine 5 MG TAB PO SCH (07:39)
[2018-10-25] MEDS: Amantadine HCl 100 mg Capsule PO SCH (07:39)
[2018-10-25] MEDS: Sevelamer Carbonate 800 MG TAB PO SCH ×3 (07:39→20:23)
[2018-10-25] MEDS: Carvedilol 3.125 MG TAB PO SCH ×2 (07:39→20:22)
[2018-10-25] MEDS: Ibuprofen 200 MG TAB PO PRN (07:44)
--- NOTE | 2018-10-25 08:59 | PRG ---
DATE OF SERVICE: 10/25/2018 SUBJECTIVE: I saw Mr. Ayala in his hospital room this morning. He is sleeping , but aroused easily. He does not report any new pain or neurologic changes. There are no events reported last night. Dr. Collins saw him yesterday and changed antibiotics due to new culture growth of MRSA. Continue antibiotics with vancomycin. Mr. Ayala should be good to go home from a neurosurgical standpoint. Job ID: [id number] [facility]
[2018-10-25] MEDS: Lacosamide 50 mg Tablet PO SCH ×2 (09:11→20:25)
[2018-10-25] MEDS: hydrALAZINE 25 MG TAB PO SCH ×3 (09:11→20:23)
--- NOTE | 2018-10-25 09:57 | PRG ---
DATE OF SERVICE: 10/25/2018 I saw Mr. Ayala in his hospital room this morning. He is writing some poetry in a notebook. His head wrap is still on, but we removed it without difficulty. Overnight, the T-max was 98.9 degrees Fahrenheit. His blood pressures have been in the 120s to 160s. Once we have the antibiotic planned for his MRSA infection, we can discharge him. He gets dialysis, and that is a good opportunity to administer antibiotics. Dr. Collins is on the case. Followup arrangements will be made in [facility]. Helmet should be worn when he is out of bed, and showers are acceptable, but he should not scrub his incision. He should let water work on the dried blood itself with minimal pressure to help it. Job ID: [id number]
--- NOTE | 2018-10-25 11:35 | PRG ---
DATE OF SERVICE: 10/25/2018 SUBJECTIVE: Mr. Ayala is a 43-year-old white male, who has ESRD and being followed by [facility] for his maintenance hemodialysis. He did receive dialysis on Friday without any difficulty. He had also an infected cranial flap, which was removed. He is on empiric IV antibiotics. ID is following. No other complaints today. No chest pain or shortness of breath. OBJECTIVE: VITAL SIGNS: Blood pressure 124/76, heart rate 69, respiratory rate 18, temperature 98.1, pulse ox 98%. GENERAL: Awake, alert, comfortable, not in distress. SKIN: Adequate turgor. HEENT: He has pinkish conjunctivae. Anicteric sclerae. NECK: No neck mass. No carotid bruits. No JVD. CHEST: No deformities. LUNGS: Clear breath sounds. HEART: Normal sinus rhythm. No murmurs, gallops, or rubs. ABDOMEN: Globular, soft, nontender. No masses. EXTREMITIES: No edema. NEUROLOGIC: He is on a protective helmet. MEDICATIONS: Medications of October 25, 2018, was reviewed. LABORATORY DATA: Laboratories of October 23, 2018; white count 6.8, hemoglobin 10.5. Sodium 134, potassium 5.5, chloride 95, carbon dioxide 27, BUN 49, creatinine 10.2, glucose 80, calcium 8.9. ASSESSMENT AND PLAN: 1. End-stage renal disease, stable. Continue current hemodialysis regimen. Fluid removal only as tolerated. Using no heparin due to the recent craniotomy. 2. Anemia. Recheck CBC in a.m. 3. Infected cranial flap-status post removal of the said flap. On empiric IV antibiotics. We will check basic metabolic panel and CBC in a.m. Job ID: [id number]
--- NOTE | 2018-10-25 11:46 | PDOC.PN ---
- Subjective Encounter Start Date: 10/25/18 Encounter Start Time: 08:00 Subjective: mild headache otherwise feels good -: no sob or new weakness -: is left handed person - Objective Resuscitation Status - Order Detail: 10/19/18 20:53 Resuscitation Status Routine Resuscitation Status: FULL: Full Resuscitation MAR Reviewed: Yes Vital Signs & Weight: Vital Signs (12 hours) Temp Pulse Resp BP BP Pulse Ox 10/25/18 09:11 69 124/76 10/25/18 08:18 98.1 F 69 18 124/76 98 10/25/18 08:00 99 10/25/18 07:39 64 124/76 10/25/18 07:38 124/76 10/25/18 04:00 98 F 66 20 125/72 99 10/25/18 00:00 97.8 F 66 20 138/84 98 Weight Admit Weight 161 lb 13.109 oz Weight 189 lb Most Recent Monitor Data Heart Rate from ECG 71 NIBP 155/90 NIBP BP-Mean 111 Respiration from ECG 14 SpO2 100 I&O: 10/24/18 10/25/18 10/26/18 06:59 06:59 06:59 Intake Total 1140 Output Total 10 Balance 1130 Result Diagrams: 10/23/18 04:45 10/23/18 04:45 Additional Labs: Accuchecks 10/25/18 10/24/18 10/24/18 06:32 20:55 16:07 POC Glucose 102 122 H 85 10/24/18 10:51 POC Glucose 131 H Phys Exam - Physical Examination scalp sutures are clean, dressing is removed HEENT: PERRLA, moist MMs Neck: no JVD, supple Respiratory: no wheezing, no rales Cardiovascular: RRR, no significant murmur Gastrointestinal: soft, non-tender, positive bowel sounds Musculoskeletal: no edema, pulses present Neurological: non-focal, moves all 4 limbs Psychiatric: normal affect, A&O x 3 Dx/Plan (1) Acute osteomyelitis of cranium Code(s): M86.18 - OTHER ACUTE OSTEOMYELITIS, OTHER SITE Status: Acute Comment: s/p removal of bone flap by NS 10/22/2018 (2) CHF (congestive heart failure) Code(s): I50.9 - HEART FAILURE, UNSPECIFIED Status: Resolved Comment: has normal ef on echo 10/23/2018 (3) DM type 2 (diabetes mellitus, type 2) Status: Chronic Qualifiers: 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 petroleum 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 plant operator use Diabetes mellitus complication status: with kidney complications Diabetes mellitus complication detail: with chronic kidney disease Chronic kidney disease stage : on chronic dialysis Qualified Code(s): E11.22 - Type 2 diabetes mellitus with diabetic chronic kidney disease; N18.6 - End stage renal disease; Z99.2 - Dependence on renal dialysis (4) ESRD (end stage renal disease) Code(s): N18.6 - END STAGE RENAL DISEASE Status: Chronic (5) HTN (hypertension) Code(s): I10 - ESSENTIAL (PRIMARY) HYPERTENSION Status: Chronic Qualifiers: Hypertension type: essential hypertension Qualified Code(s): I10 - Essential (primary) hypertension (6) Seizure disorder Code(s): G40.909 - EPILEPSY, UNSP, NOT INTRACTABLE, WITHOUT STATUS EPILEPTICUS Status: Chronic Comment: on AEDs - Plan is on vanc with HD, ceftriaxone here -: dc plan when arranges vanc with HD per order -: is getting his new helmet fixed today -: may dc when above are arranged if ok with nsx -: continue lip, coreg, norvasc, hydralazine, vimpat, dilantin * . Review of Systems - Medications/Allergies Allergies/Adverse Reactions: Allergies Allergy/AdvReac Type Severity Reaction Status Date / Time Penicillins Allergy Intermediate Hives Verified 08/28/16 11:01 Medications: Current Medications Acetaminophen (Tylenol) 650 mg PO Q4H PRN PRN Reason: Headache/Fever/Mild Pain (1-3) Last Admin: 10/24/18 16:13 Dose: 650 mg Amantadine HCl (Symmetrel) 100 mg PO DAILY [facility] Last Admin: 10/25/18 07:39 Dose: 100 mg Amlodipine Besylate (Norvasc) 5 mg PO DAILY [facility] Last Admin: 10/25/18 07:39 Dose: 5 mg Atorvastatin Calcium (Lipitor) 40 mg PO HS [facility] Last Admin: 10/24/18 21:56 Dose: 40 mg Carvedilol (Coreg) 3.125 mg PO BID [facility] Last Admin: 10/25/18 07:39 Dose: 3.125 mg Cholecalciferol (Vitamin D3) 2,000 units PO DAILY [facility] Last Admin: 02/10/19 07:38 Dose: 2,000 units Dextrose/Water (Dextrose 50%) 25 gm IVP PRN PRN PRN Reason: HYPOGLYCEMIA PROTOCOL Diphenoxylate HCl/Atropine (Lomotil) 1 tab PO PRN PRN PRN Reason: Diarrhea/Loose Stools Glucagon (Glucagon) 1 mg IM PRN PRN PRN Reason: HYPOGLYCEMIA PROTOCOL Hydralazine HCl (Apresoline) 25 mg PO TID [facility] Last Admin: 10/25/18 09:11 Dose: 25 mg Hydralazine HCl (Apresoline) 10 mg SLOW IVP Q4H PRN PRN Reason: SBP > 180 and HR < 70 Vancomycin HCl 1.25 gm/ Sodium (Chloride) 250 mls @ 166.667 mls/hr IVPB WILLCALL [facility] Vancomycin HCl 1 gm/ Device 200 mls @ 200 mls/hr IVPB [facility] Vancomycin HCl 750 mg/ Sodium (Chloride) 250 mls @ 250 mls/hr IVPB [facility] Vancomycin HCl 500 mg/ Sodium (Chloride) 100 mls @ 100 mls/hr IVPB [facility] Dextrose/Water (D5w) 1,000 mls @ 0 mls/hr IV INF PRN PRN Reason: HYPOGLYCEMIA PROTOCOL Ibuprofen (Motrin) 400 mg PO Q8H PRN PRN Reason: Pain Last Admin: 10/25/18 07:44 Dose: 400 mg Insulin Human Lispro (Humalog) 0 units SC .MILD SLIDING SCALE PRN; Protocol PRN Reason: MILD SLIDING SCALE Last Admin: 10/20/18 11:27 Dose: 2 unit Lacosamide (Vimpat) 50 mg PO BID [facility] Last Admin: 10/25/18 09:11 Dose: 50 mg Lisinopril (Zestril) 10 mg PO BID [facility] Last Admin: 10/25/18 07:38 Dose: 10 mg Miscellaneous Medication (Pharmacy To Dose) 1 each IVPB ONE PRN PRN Reason: DOSING Stop: 11/18/18 21:37 Morphine Sulfate (Morphine) 2 mg SLOW IVP Q4H PRN PRN Reason: chest Pain/BP elevations Last Admin: 10/24/18 05:28 Dose: 2 mg Hold Vancomycin For (Level >20) 0 each FS .AT DIALYSIS [facility] Ondansetron HCl (Zofran) 4 mg IVP Q6H PRN PRN Reason: Nausea/Vomiting Last Admin: 10/23/18 08:41 Dose: 4 mg Phenytoin Sodium (Dilantin Er) 400 mg PO QPM [facility] Last Admin: 10/24/18 21:56 Dose: 400 mg Rosuvastatin Calcium (Crestor) 10 mg PO HS [facility] Last Admin: 10/24/18 21:56 Dose: 10 mg Saccharomyces Boulardii (Florastor) 250 mg PO DAILY [facility] Last Admin: 10/25/18 07:39 Dose: 250 mg Sertraline HCl (Zoloft) 50 mg PO DAILY [facility] Last Admin: 10/25/18 07:38 Dose: 50 mg Sevelamer Carbonate (Renvela) 1,600 mg PO TID [facility] Last Admin: 10/25/18 07:39 Dose: 1,600 mg
[2018-10-25] MEDS: Atorvastatin Calcium 40 MG TAB PO SCH (20:23)
[2018-10-25] MEDS: Rosuvastatin 10 MG TAB PO SCH (20:24)
[2018-10-26] MEDS: Ibuprofen 200 MG TAB PO PRN (01:47)
[2018-10-26] MEDS: Acetaminophen 325 MG TAB PO PRN ×2 (05:55→12:39)
[2018-10-26 06:28] LABS: #Eosinphils 0.1 thou/uL (0.0-0.7); #Lymphocytes 2.1 thou/uL (1.20-3.40); #Monocytes 0.3 thou/uL (0.11-0.59); #Neutrophils 2.5 thou/uL (1.40-6.50); %Basophils 0.6 % (0.0-1.0); %Eosinophils 1.3 % (0.0-10.0); %Lymphocytes 41.6 % (21.0-51.0); %Monocytes 6.1 % (0.0-10.0); %Neutrophils 50.3 % (42.0-75.0); Hemoglobin 9.6 g/dL (14.0-18.0); Mean Corpuscular HGB CONC 33.7 g/dL (32.0-36.0); Mean Corpuscular Hemoglobin 33.6 pg (27.0-31.0); Mean Corpuscular Volume 99.6 fL (78.0-98.0); Mean Platelet Volume 6.6 fL (7.4-10.4); Platelet Count 196 thou/uL (130-400); RBC Distribution Width 13.1 % (11.5-14.5); Red Blood Cell (RBC) Count 2.86 mill/uL (4.70-6.10)
[2018-10-26 06:48] LABS: Anion Gap 19 mmol/L (10-20); BUN (Urea Nitrogen) 60 mg/dL (8.9-20.6); Calc. Creatinine Clearance 10 mL/min (70-130); Carbon Dioxide 24 mmol/L (22-29); Chloride 94 mmol/L (98-107); Estimated GFR-MDRD 5; Glucose 79 mg/dL (70-105); Potassium 5.4 mmol/L (3.5-5.1); Sodium 132 mmol/L (136-145)
[2018-10-26 08:11] LABS: Vancomycin, Random 12.2 ug/mL (See Comment)
--- NOTE | 2018-10-26 09:05 | PRG ---
DATE OF SERVICE: 10/26/2018 SUBJECTIVE: Mr. Ayala is a 43-year-old male with ESRD and currently undergoing hemodialysis. He was initially admitted for infected cranial flap. He underwent surgery for its removal. He is on empiric IV antibiotics. He is currently undergoing dialysis. He voices no new complaints. The patient denies any chest pain or shortness of breath. OBJECTIVE: VITAL SIGNS: Blood pressure 135/80, heart rate 69, respiratory rate 18, temperature 97.9, pulse oximetry 100%. GENERAL: Awake, alert, comfortable, not in distress. SKIN: Adequate turgor. HEENT: He has a pinkish conjunctivae. Anicteric sclerae. No neck mass. No carotid bruits. No JVD. CHEST: No deformities. LUNGS: Clear breath sounds. HEART: Normal sinus rhythm. No murmur. No gallops. No rubs. ABDOMEN: Globular, soft, nontender. No masses. EXTREMITIES: No edema. No deformities. NEUROLOGICAL: He has a protective cup. He has a protective helmet. MEDICATIONS: Medications of October 26, 2018, reviewed. LABORATORY DATA: Laboratories of October 26, 2018, white count 5, hemoglobin 9.6. Sodium 132, potassium 5.4, chloride 94, carbon dioxide 24, BUN 60, creatinine 11.8, glucose 79, calcium 9. ASSESSMENT AND PLAN: 1. End-stage renal disease, stable. Continue current Friday, Friday, Friday dialysis. No heparin use due to recent surgery. Fluid removal only as tolerated. 2. Infected cranial flap-the patient is status post removal of the cranial flap, on IV antibiotics. 3. Anemia. Start Epogen and iron supplementation. Job ID: [id number]
--- NOTE | 2018-10-26 09:35 | PRG ---
DATE OF SERVICE: 10/26/2018 SUBJECTIVE: Mr. Ayala is now hospital day #7. On postoperative day #4, having undergone removal of his bone flap that was shown by Microbiology to be infected with MRSA. He again is on dialysis. I am unable to examine him at that time. However, according to nursing staff, he is doing very well. He is ambulatory and has a good appetite. He has a cranial helmet in place as again, he has no bone flap. From Neurosurgical standpoint, we are fine with discharge once antibiotics have been appropriately managed by Infectious Disease, but likely this will include vancomycin. We will arrange a wound check. Follow up in our office 14 to 17 days postop. Otherwise, please call with any changes in the patient's neurologic status. Job ID: [id number]
--- NOTE | 2018-10-26 11:13 | PDOC.PN ---
- Subjective Encounter Start Date: 10/26/18 Encounter Start Time: 10:25 Subjective: getting HD, no sob - Objective Resuscitation Status - Order Detail: 10/19/18 20:53 Resuscitation Status Routine Resuscitation Status: FULL: Full Resuscitation MAR Reviewed: Yes Vital Signs & Weight: Vital Signs (12 hours) Temp Pulse Resp BP Pulse Ox 10/26/18 04:00 97.9 F 69 18 135/80 100 10/26/18 00:00 98.1 F 76 18 150/88 H 99 Weight Admit Weight 161 lb 13.109 oz Weight 189 lb Most Recent Monitor Data Heart Rate from ECG 71 NIBP 155/90 NIBP BP-Mean 111 Respiration from ECG 14 SpO2 100 I&O: 10/25/18 10/26/18 10/27/18 06:59 06:59 06:59 Intake Total 480 Balance 480 Result Diagrams: 10/26/18 06:01 10/26/18 06:01 Additional Labs: Accuchecks 10/26/18 10/25/18 10/25/18 05:38 20:22 16:06 POC Glucose 90 109 88 10/25/18 11:31 POC Glucose 141 H Phys Exam - Physical Examination HEENT: PERRLA, moist MMs Neck: no JVD, supple Respiratory: no wheezing, no rales Cardiovascular: RRR, no significant murmur Gastrointestinal: soft, non-tender, positive bowel sounds Musculoskeletal: no edema, pulses present Neurological: non-focal, moves all 4 limbs Psychiatric: normal affect, A&O x 3 Dx/Plan (1) Acute osteomyelitis of cranium Code(s): M86.18 - OTHER ACUTE OSTEOMYELITIS, OTHER SITE Status: Acute Comment: s/p removal of bone flap by NS 10/22/2018 (2) CHF (congestive heart failure) Code(s): I50.9 - HEART FAILURE, UNSPECIFIED Status: Resolved Comment: has normal ef on echo 10/23/2018 (3) DM type 2 (diabetes mellitus, type 2) Status: Chronic Qualifiers: Diabetes mellitus manager long term care insulin use: without manager long term care use Diabetes mellitus complication status: with kidney complications Diabetes mellitus complication detail: with chronic kidney disease Chronic kidney disease stage : on chronic dialysis Qualified Code(s): E11.22 - Type 2 diabetes mellitus with diabetic chronic kidney disease; N18.6 - End stage renal disease; Z99.2 - Dependence on renal dialysis (4) ESRD (end stage renal disease) Code(s): N18.6 - END STAGE RENAL DISEASE Status: Chronic (5) HTN (hypertension) Code(s): I10 - ESSENTIAL (PRIMARY) HYPERTENSION Status: Chronic Qualifiers: Hypertension type: essential hypertension Qualified Code(s): I10 - Essential (primary) hypertension (6) Seizure disorder Code(s): G40.909 - EPILEPSY, UNSP, NOT INTRACTABLE, WITHOUT STATUS EPILEPTICUS Status: Chronic Comment: on AEDs - Plan hemo/neurostable -: needs vanc with HD to be arranged -: he got his helmet arranged -: may dc anytime if above is arranged, d/w Case mgmt -: continue lipitor, coreg, norvasc, hydralazine, vimpat and dilantin * . Review of Systems - Medications/Allergies Allergies/Adverse Reactions: Allergies Allergy/AdvReac Type Severity Reaction Status Date / Time Penicillins Allergy Intermediate Hives Verified 08/28/16 11:01 Medications: Current Medications Acetaminophen (Tylenol) 650 mg PO Q4H PRN PRN Reason: Headache/Fever/Mild Pain (1-3) Last Admin: 10/26/18 05:55 Dose: 650 mg Amantadine HCl (Symmetrel) 100 mg PO DAILY [facility] Last Admin: 10/25/18 07:39 Dose: 100 mg Amlodipine Besylate (Norvasc) 5 mg PO DAILY [facility] Last Admin: 10/25/18 07:39 Dose: 5 mg Atorvastatin Calcium (Lipitor) 40 mg PO HS [facility] Last Admin: 10/25/18 20:23 Dose: 40 mg Carvedilol (Coreg) 3.125 mg PO BID [facility] Last Admin: 10/25/18 20:22 Dose: 3.125 mg Cholecalciferol (Vitamin D3) 2,000 units PO DAILY [facility] Last Admin: 10/25/18 07:38 Dose: 2,000 units Dextrose/Water (Dextrose 50%) 25 gm IVP PRN PRN PRN Reason: HYPOGLYCEMIA PROTOCOL Diphenoxylate HCl/Atropine (Lomotil) 1 tab PO PRN PRN PRN Reason: Diarrhea/Loose Stools Glucagon (Glucagon) 1 mg IM PRN PRN PRN Reason: HYPOGLYCEMIA PROTOCOL Hydralazine HCl (Apresoline) 25 mg PO TID [facility] Last Admin: 10/25/18 20:23 Dose: 25 mg Hydralazine HCl (Apresoline) 10 mg SLOW IVP Q4H PRN PRN Reason: SBP > 180 and HR < 70 Vancomycin HCl 1.25 gm/ Sodium (Chloride) 250 mls @ 166.667 mls/hr IVPB WILLCALL [facility] Vancomycin HCl 1 gm/ Device 200 mls @ 200 mls/hr IVPB [facility] Vancomycin HCl 750 mg/ Sodium (Chloride) 250 mls @ 250 mls/hr IVPB [facility] Last Admin: 10/26/18 10:45 Dose: 250 mls Vancomycin HCl 500 mg/ Sodium (Chloride) 100 mls @ 100 mls/hr [facility] Dextrose/Water (D5w) 1,000 mls @ 0 mls/hr IV INF PRN PRN Reason: HYPOGLYCEMIA PROTOCOL Ibuprofen (Motrin) 400 mg PO Q8H PRN PRN Reason: Pain Last Admin: 10/26/18 01:47 Dose: 400 mg Insulin Human Lispro (Humalog) 0 units SC .MILD SLIDING SCALE PRN; Protocol PRN Reason: MILD SLIDING SCALE Last Admin: 10/20/18 11:27 Dose: 2 unit Lacosamide (Vimpat) 50 mg PO BID [facility] Last Admin: 10/25/18 20:25 Dose: 50 mg Lisinopril (Zestril) 10 mg PO BID [facility] Last Admin: 10/25/18 20:23 Dose: 10 mg Miscellaneous Medication (Pharmacy To Dose) 1 each IVPB ONE PRN PRN Reason: DOSING Stop: 11/18/18 21:37 Morphine Sulfate (Morphine) 2 mg SLOW IVP Q4H PRN PRN Reason: chest Pain/BP elevations Last Admin: 10/24/18 05:28 Dose: 2 mg Hold Vancomycin For (Level >20) 0 each FS .AT DIALYSIS [facility] Ondansetron HCl (Zofran) 4 mg IVP Q6H PRN PRN Reason: Nausea/Vomiting Last Admin: 10/23/18 08:41 Dose: 4 mg Phenytoin Sodium (Dilantin Er) 400 mg PO QPM [facility] Last Admin: 10/25/18 20:22 Dose: 400 mg Rosuvastatin Calcium (Crestor) 10 mg PO HS [facility] Last Admin: 10/25/18 20:24 Dose: 10 mg Saccharomyces Boulardii (Florastor) 250 mg PO DAILY [facility] Last Admin: 10/25/18 07:39 Dose: 250 mg Sertraline HCl (Zoloft) 50 mg PO DAILY [facility] Last Admin: 10/25/18 07:38 Dose: 50 mg Sevelamer Carbonate (Renvela) 1,600 mg PO TID [facility] Last Admin: 10/25/18 20:23 Dose: 1,600 mg
[2018-10-26] MEDS: Amlodipine 5 MG TAB PO SCH (12:39)
[2018-10-26] MEDS: Saccharomyces boulardii 250 MG CAP PO SCH (12:39)
[2018-10-26] MEDS: Lisinopril 10 MG TAB PO SCH (12:39)
[2018-10-26] MEDS: Amantadine HCl 100 mg Capsule PO SCH (12:40)
[2018-10-26] MEDS: hydrALAZINE 25 MG TAB PO SCH ×2 (12:40→15:27)
[2018-10-26] MEDS: Carvedilol 3.125 MG TAB PO SCH (12:40)
[2018-10-26] MEDS: Sevelamer Carbonate 800 MG TAB PO SCH ×2 (12:41→15:27)
[2018-10-26] MEDS: Lacosamide 50 mg Tablet PO SCH (14:47)
[2018-10-26 16:13] VITALS: BP 124/79; TEMP 98
--- NOTE | 2018-10-27 13:20 | DIS ---
DATE OF ADMISSION: 10/19/2018 DATE OF DISCHARGE: 10/26/2018 DISCHARGE DISPOSITION: To home. 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 PROCEDURES DONE DURING HOSPITALIZATION: The patient had initial CT of brain done on the day of admission on 10/19/2018, which showed findings suggestive of right frontal parietal scalp defect with open communication with adjacent calvarium concerning for an area of osteomyelitis. No definite abscess was seen. MRI of brain without contrast done showed large number of extensive osteolytic defects throughout the craniotomy bone flap, evidence for new superficial soft tissue scalp abscess at the posterior aspect of the bone flap. This abscess partially occupies one of the far posterior osteolytic lesions. Thin layer of right frontotemporoparietal material abutting the deep surface of the bone flap, which is nonspecific. Right temporal lobe region of encephalomalacia and gliosis. Small old lacunar infarct of left midbrain. No intracranial mass effect or acute hemorrhage was seen. The patient had removal of infected right skull flap with intraoperative cultures and washout and re-closure of wound done on 10/22/[address] Montiel. Echo with 2D Doppler showed EF of 50% to 55%. Wound cultures from the skull bone revealed MRSA. Hemoglobin and hematocrit of 10 and 28, platelet count 196. Discharge BUN and creatinine were 60 and 11.8. CRP 4.84, sedimentation rate 33, vanc random levels were 12.2 on the 11th. HBS antigen nonreactive. DISCHARGE MEDICATIONS: The patient will be gettin. Vancomycin with hemodialysis. 2. Ferric citrate 210 mg three times daily. 3. ultram p.r.n. for pain. 4. Phenytoin extended release 400 mg p.o. at bedtime. 5. Vimpat 50 mg twice daily. 6. Hydralazine 50 mg three times daily. 7. Carvedilol 3.125 mg twice daily. 8. Lipitor 40 mg p.o. at bedtime. 9. Ultram p.r.n. for pain. 10. Sevelamer 600 mg p.o. three times daily. 11. Ultram p.r.n. for pain. 12. Zoloft 50 mg daily. ALLERGIES: PENICILLIN. INPATIENT CONSULT: 1. Dr. Montiel for Neurosurgery. 2. Dr. Shin for Nephrology. 3. Dr. Collins for Infectious Disease. BRIEF COURSE DURING HOSPITALIZATION: The patient initially got admitted on the with scalp wound. Initial CT revealed possible osteomyelitis and subsequent MRI done confirmed osteomyelitis with local abscess. The patient has had prior surgery done with right frontotemporal craniectomy in 2016 and replacement of skull flap in the defect at the prior craniectomy site. Currently, this was infected and the patient was taken to operating room on the . The patient had removal of his skull cap and closure. Cultures from the wound have revealed MRSA. The patient has been fitted with a helmet, which he needs to wear when he ambulates. Vancomycin with hemodialysis is being arranged by case management. The patient is ambulating and eating well prior to discharge. He needs to follow up with Dr. Montiel as advised. Vancomycin end date is December 21, 2018. After that, he needs to switch over to minocycline 100 mg twice daily for 2 to 3 months. The patient needs lab work with dialysis and this needs to be faxed over to Dr. Collins. He is otherwise hemodynamically stable and has been cleared by Neurosurgery for discharge. Please see a [id number] documentation for the day of discharge on [facility]. Job ID: [id number] [facility]
== END 2018-10-26 16:13 | disposition home health service (06) | DRG 515 ==
LOC: ERS 16:38 → 2SE 19:21 → CCU 10-22 15:53 → SURG B 10-23 17:21
PROVIDERS: ADMIT Hospitalist; ATTEND Hospitalist
PROC: 5A1D70Z Performance of Urinary Filtration, Intermittent, Less than 6 Hours Per Day (ICD-10-PCS; 2018-10-19)
PROC: 0NP004Z Removal of Internal Fixation Device from Skull, Open Approach (ICD-10-PCS; principal; 2018-10-22)
PROC: 0NB50ZZ Excision of Right Temporal Bone, Open Approach (ICD-10-PCS; 2018-10-22)
DX: T84.7XXA Infection and inflammatory reaction due to other internal orthopedic prosthetic devices, implants and grafts, initial encounter (principal); N18.6 End stage renal disease; G06.0 Intracranial abscess and granuloma; I13.2 Hypertensive heart and chronic kidney disease with heart failure and with stage 5 chronic kidney disease, or end stage renal disease; M86.18 Other acute osteomyelitis, other site; I42.9 Cardiomyopathy, unspecified; G93.89 Other specified disorders of brain; B95.62 Methicillin resistant Staphylococcus aureus infection as the cause of diseases classified elsewhere; E11.22 Type 2 diabetes mellitus with diabetic chronic kidney disease; E11.69 Type 2 diabetes mellitus with other specified complication; I25.10 Atherosclerotic heart disease of native coronary artery without angina pectoris; I50.9 Heart failure, unspecified; D64.9 Anemia, unspecified; E83.39 Other disorders of phosphorus metabolism; G40.909 Epilepsy, unspecified, not intractable, without status epilepticus; Z99.2 Dependence on renal dialysis; Z86.73 Personal history of transient ischemic attack (TIA), and cerebral infarction without residual deficits; Z88.0 Allergy status to penicillin; Y83.2 Surgical operation with anastomosis, bypass or graft as the cause of abnormal reaction of the patient, or of later complication, without mention of misadventure at the time of the procedure
CPT/HCPCS: 36415; 36416; 70450; 70551; 80048; 80053; 80202; 83605; 85025; 85652; 86140; 87040; 87070; 87077; 87186; 87205; 87340; 90471; 90686; 90935; 93005; 93010; 93306; 96365; 96366; 96375; G0008; G0257; J0360; J0696; J1170; J1644; J2250; J2270; J2405; J2550; J2704; J3010; J3370; J3490; J7050; P9045

== ENCOUNTER 2018-12-10 08:35 | Outpatient (CLI) | payer MEDICARE ==
[2018-12-10] MEDS ORDERED: Lidocaine 2% PF 100 mg/5 ml Syringe ONE (09:00)
--- NOTE | 2018-12-10 09:32 | PRG ---
DATE OF SERVICE: 12/10/2018 HISTORY: Mr. Wilbert Ayala is a very pleasant 43-year-old gentleman, who presents to the Wound Center for evaluation of an ulceration over the plantar surface of the left forefoot. The patient states that he is still receiving assistance with dressing changes by Home Health. Since the patient's last visit to the Wound Center, Mr. Ayala underwent removal of an infected right skull flap with intraoperative cultures and washout and re-closure of the wound done on 10/22/[address] Montiel. Mr. Ayala states he is to undergo another surgical procedure in the near future. The patient has no other complaints today. He denies any fever or chills. PHYSICAL EXAMINATION: VITAL SIGNS: Temperature 97.5, pulse 86, respirations 14, blood pressure 133/69. Accu-Chek 109. EXTREMITIES: An ulceration over the plantar surface of the left forefoot is present which measures approximately 3.0 x 2.2 cm. Granulation tissue is present within the wound margins. Necrotic and nonviable tissue present within the wound margins was debrided with an excisional full-thickness debridement with the use of scissors. No purulent drainage is associated with the wound. No erythema of the skin surrounding the wound is present. No maceration of the skin of the periwound is noted. ASSESSMENT AND PLAN: 1. Ulceration over plantar surface of left forefoot for the wound, dressing changes of SilvaSorb gel sheet will be initiated today. These dressing changes are to be performed 3 times per week after cleansing and irrigation with the assistance of Home Health. Mepilex Border will be utilized as the secondary dressings. I will see Mr. Ayala again in 2 weeks. 2. Diabetes mellitus. The patient's Accu-Chek in clinic today is 109. The patient has been reminded that for optimal wound healing his blood glucoses should remain below 150. 3. Hypertension. 4. End-stage renal disease. 5. Seizure disorder. Job ID: [id number]
== END 2018-12-10 08:36 | disposition home or self-care (01) ==
LOC: WCC 08:35
PROVIDERS: ATTEND Family Medicine
DX: E11.621 Type 2 diabetes mellitus with foot ulcer (principal); L97.529 Non-pressure chronic ulcer of other part of left foot with unspecified severity; E11.22 Type 2 diabetes mellitus with diabetic chronic kidney disease; I12.0 Hypertensive chronic kidney disease with stage 5 chronic kidney disease or end stage renal disease; N18.6 End stage renal disease; G40.909 Epilepsy, unspecified, not intractable, without status epilepticus
CPT/HCPCS: 11042; J2001

== ENCOUNTER 2019-01-28 08:43 | Outpatient (CLI) | payer MEDICARE ==
--- NOTE | 2019-01-28 09:27 | PRG ---
DATE OF SERVICE: 01/28/2019 HISTORY: Mr. Wilbert Ayala is a very pleasant 43-year-old gentleman, who presents to the Wound Center for evaluation of an ulceration over the plantar surface of the left forefoot. The patient is still receiving assistance with dressing changes by Home Health. The patient states that he is receiving dressing changes with SilvaSorb gel as opposed to SilvaSorb sheet. The patient has no complaints today. He denies any fever or chills. PHYSICAL EXAMINATION: VITAL SIGNS: Temperature 97.8, pulse 80, respirations 18, blood pressure 139/71. Accu-Chek 108. EXTREMITIES: An ulceration over the plantar surface of the left forefoot is present, which measures approximately 1.0 x 0.2 cm. Granulation tissue is present within the wound margins. Necrotic and nonviable tissue present within the wound margins was debrided with an excisional full-thickness debridement with the use of scissors and a curette. No purulent drainage is associated with the wound. No erythema of the skin surrounding the wound is present. No maceration of the skin of the periwound is noted. ASSESSMENT AND PLAN: 1. Ulceration over plantar surface of left forefoot. For the wound, dressing changes of SilvaSorb gel sheet are to be performed 3 times per week after cleansing and irrigation with the assistance of Home Health. Mepilex Border will be utilized as a secondary dressing. I will see Mr. Ayala again in 3 weeks. At this time, he will also be seen by the press tender star signal. The patient states that he has been utilizing his diabetic shoes with inserts for the past two months. 2. Diabetes mellitus. The patient's Accu-Chek in clinic today is 108. The patient has been reminded that for optimal wound healing, his blood glucoses should remain below 150. 3. Hypertension. 4. End-stage renal disease. 5. Seizure disorder. Job ID: [id number]
[2019-01-28] MEDS ORDERED: Sodium Chloride 0.9% 15 ML NEB ONE (15:00)
== END 2019-01-28 08:44 | disposition home or self-care (01) ==
LOC: WCC 08:43
PROVIDERS: ATTEND Family Medicine
DX: E11.621 Type 2 diabetes mellitus with foot ulcer (principal); L97.529 Non-pressure chronic ulcer of other part of left foot with unspecified severity; E11.22 Type 2 diabetes mellitus with diabetic chronic kidney disease; I12.0 Hypertensive chronic kidney disease with stage 5 chronic kidney disease or end stage renal disease; N18.6 End stage renal disease; G40.909 Epilepsy, unspecified, not intractable, without status epilepticus
CPT/HCPCS: 11042; A4218

== ENCOUNTER 2019-02-11 11:18 | Observation (INO) | payer MEDICARE ==
[2019-02-11] MEDS ORDERED: cloNIDine 0.1 MG TAB ONE (12:18)
[2019-02-11 12:40] LABS: #Lymphocytes 1.1 thou/uL (1.20-3.40); #Monocytes 0.3 thou/uL (0.11-0.59); #Neutrophils 1.8 thou/uL (1.40-6.50); %Basophils 0.3 % (0.0-1.0); %Lymphocytes 33.9 % (21.0-51.0); %Monocytes 8.1 % (0.0-10.0); %Neutrophils 56.8 % (42.0-75.0); Hemoglobin 10.9 g/dL (14.0-18.0); Mean Corpuscular HGB CONC 34.3 g/dL (32.0-36.0); Mean Corpuscular Hemoglobin 34.7 pg (27.0-31.0); Mean Platelet Volume 7.2 fL (7.4-10.4); Platelet Count 165 thou/uL (130-400); Red Blood Cell (RBC) Count 3.13 mill/uL (4.70-6.10); White Blood Cell (WBC) Count 3.2 thou/uL (4.8-10.8)
[2019-02-11 13:05] LABS: ALT (SGPT) 19 U/L (8-55); AST (SGOT) 21 U/L (5-34); Albumin 4.3 g/dL (3.5-5.0); Alkaline Phosphatase 165 U/L (40-150); Anion Gap 17 mmol/L (10-20); BUN (Urea Nitrogen) 48 mg/dL (8.9-20.6); Bilirubin, Total 0.5 mg/dL (0.2-1.2); Calc. Creatinine Clearance 0 mL/min (70-130); Calcium 9.4 mg/dL (7.8-10.44); Carbon Dioxide 27 mmol/L (22-29); Chloride 97 mmol/L (98-107); Estimated GFR-MDRD 8; Globulin 3.4 g/dL (2.4-3.5); Glucose 127 mg/dL (70-105); Potassium 4.4 mmol/L (3.5-5.1); Protein, Total 7.7 g/dL (6.0-8.3); Sodium 137 mmol/L (136-145)
[2019-02-11] MEDS ORDERED: Fosphenytoin Sodium 200 MG in Sodium Chloride 0.9% 50 ML IVPB SCH (13:30)
[2019-02-11] MEDS ORDERED: hydrALAZINE 20 MG/ML VIAL ONE (13:33)
--- NOTE | 2019-02-11 14:32 | CT ---
Exam: Head CT without contrast HISTORY: Seizure. Nausea and headache. COMPARISON: 10/23/2018 FINDINGS: Hemorrhage: No intraparenchymal hemorrhage or extra-axial hematoma. Brain parenchyma: Malacic and gliotic changes involving the right temporal lobe. The remainder the ri ght cerebrum the left cerebrum demonstrate preservation of cortical dixon-whitewhite matter differentiation. Ventricular system: Stable configuration the ventricular system. Mild ex vacuo dilatation of the late ral horn of the right ventricle secondary to right temporal lobe malacia Calvarium: Stable right calvarial craniectomy defect. There is an associated flap. Sinuses and mastoid air cells: Adequate aeration. There does appear to be right supra orbital and preseptal soft tissue swelling, incompletely evaluate d. IMPRESSION: 1. Malacic and gliotic changes involving the right temporal lobe. 2. Right calvarial craniectomy. There is an associated flap. 3. Right supraorbital and preseptal soft tissue swelling.
[2019-02-11] MEDS ORDERED: Ondansetron ODT 4 MG TAB PO PRN (15:42)
[2019-02-11] MEDS ORDERED: Acetaminophen 650 MG Suppository PR PRN (15:42)
[2019-02-11] MEDS ORDERED: hydrALAZINE 20 MG/ML VIAL SLOW IVP PRN (15:42)
[2019-02-11] MEDS ORDERED: Dextrose 50% Abboject 50 ML SYRINGE SLOW IVP PRN (15:42)
[2019-02-11] MEDS ORDERED: Ondansetron PF 4 MG/2 ML Vial IVP PRN (15:42)
[2019-02-11] MEDS ORDERED: Lorazepam 2 MG/ML VIAL SLOW IVP PRN (15:42)
[2019-02-11] MEDS ORDERED: HumaLOG 300 UNITS/3 ML VIAL SC PRN ×2 (15:42)
[2019-02-11] MEDS ORDERED: Dextrose 5% in Water 1,000 ML IV PRN (15:42)
[2019-02-11] MEDS ORDERED: Metoclopramide 10 MG/10 ML UDCUP ONE ×2 (15:45→15:56)
[2019-02-11] MEDS ORDERED: diphenhydrAMINE 50 MG/ML VIAL ONE ×2 (15:45→15:56)
[2019-02-11] MEDS ORDERED: Metoclopramide HCl 10 MG/2 ML VIAL ONE (15:46)
--- NOTE | 2019-02-11 15:51 | PDOC.FPRHP ---
- History of Present Illness Chief Complaint: seizure History of Present Illness: Mr. Ayala presents today for seizure He has known history of seizure disorder and TBI, ESRD on Dialysis. The last thing he remembers is undergoing dialysis, then it was reported he had jerking type motions and significant post ictal state. Resolved on our exam, appears to be at baseline. Denies new weakness, visual disturbance, parasthesias or spasm. Only complaint at this point is headache. ED Course: clonidine, dilantin, hydralazine CBC, CMP, dilantin level, CT head - Allergies/Adverse Reactions Allergies Allergy/AdvReac Type Severity Reaction Status Date / Time Penicillins Allergy Intermediate Hives Verified 08/28/16 11:01 - Home Medications Medication Instructions Recorded Confirmed Type Lacosamide [Vimpat] 50 mg PO BID #0 tab 03/28/16 10/20/18 Rx Phenytoin Sodium Extended 400 mg PO HS 04/20/17 10/20/18 History Carvedilol [Coreg] 3.125 mg PO BID #60 tab 05/23/17 10/20/18 Rx Cholecalciferol (Vitamin D3) 2,000 units PO DAILY 10/20/18 10/20/18 History [Vitamin D3] Diphenoxylate HCl/Atropine 1 tab PO PRN PRN 10/20/18 10/20/18 History [Lomotil] Ferric Citrate [Auryxia] 210 mg PO TID 10/20/18 10/20/18 History Naproxen Sodium [Aleve] 220 mg PO PRN PRN 10/20/18 10/20/18 History Sertraline HCl [Zoloft] 50 mg PO DAILY 10/20/18 10/20/18 History Sevelamer Carbonate [Renvela] 1,600 mg PO TID 10/20/18 10/20/18 History traMADol HCl [Tramadol HCl] 50 mg PO PRN PRN 10/20/18 10/20/18 History Atorvastatin Calcium [Lipitor] 40 mg PO HS #30 tab 10/26/18 Rx hydrALAZINE [Apresoline] 50 mg PO TID #90 tab 10/26/18 10/20/18 Rx Diphenoxylate HCl/Atropine 2 tab PO QID #60 tab 02/12/19 Rx [Lomotil] levETIRAcetam [Keppra] 500 mg PO BID #60 tab 02/12/19 Rx - History PMHx:Seizure, soft tissue swelling, ESRD on dialysis, HTN, DMII, TBI w/ associated seizure disorder PSHx: Craniotomy FHx: NC Social: no TAD - Review of Systems General: denies: fever/chills Eyes: denies: vision changes Respiratory: denies: cough Cardiovascular: denies: chest pain, palpitation Genitourinary: denies: incontinence Skin: denies: rashes Musculoskeletal: denies: pain, swelling Neurological: reports: seizure. denies: syncope - Vital signs 145/70, Pulse: 66, Resp: 18, Pain: 0, O2 sat: 98 on RA - Physical Exam Constitutional: NAD HEENT: grossly normal vision, grossly normal hearing, MMM Chest: no-tender to palpation Heart: RRR, normal S1/S2 Lungs: CTAB, no respiratory distress Abdomen: soft Musculoskeletal: normal structure -Neurological: baseline deficits Skin: no rash/lesions, good turgor Heme/Lymphatic: no unusual bruising or bleeding Psychiatric: normal mood and affect FMR H&P: Results - Labs Result Diagrams: 02/11/19 12:21 02/11/19 12:21 Lab results: WBC 3.2 thou/uL (4.8-10.8) L 02/11/19 12:21 Hgb 10.9 g/dL (14.0-18.0) L 02/11/19 12:21 Hct 31.6 % (42.0-52.0) L 02/11/19 12:21 MCV 101.0 fL (78.0-98.0) H 02/11/19 12:21 Plt Count 165 thou/uL (130-400) 02/11/19 12:21 Neutrophils % 56.8 % (42.0-75.0) 02/11/19 12:21 Sodium 137 mmol/L (136-145) 02/11/19 12:21 Potassium 4.4 mmol/L (3.5-5.1) 02/11/19 12:21 Chloride 97 mmol/L (98-107) L 02/11/19 12:21 Carbon Dioxide 27 mmol/L (22-29) 02/11/19 12:21 BUN 48 mg/dL (8.9-20.6) H 02/11/19 12:21 Creatinine 7.93 mg/dL (0.7-1.3) H 02/11/19 12:21 Glucose 127 mg/dL (70-105) H 02/11/19 12:21 Calcium 9.4 mg/dL (7.8-10.44) 02/11/19 12:21 Total Bilirubin 0.5 mg/dL (0.2-1.2) 02/11/19 12:21 AST 21 U/L (5-34) 02/11/19 12:21 ALT 19 U/L (8-55) 02/11/19 12:21 Alkaline Phosphatase 165 U/L (40-150) H 02/11/19 12:21 Serum Total Protein 7.7 g/dL (6.0-8.3) 02/11/19 12:21 Albumin 4.3 g/dL (3.5-5.0) 02/11/19 12:21 FMR H&P: A/P - Problem List (1) Seizure Current Visit: No Status: Acute Code(s): R56.9 - UNSPECIFIED CONVULSIONS (2) DM type 2 (diabetes mellitus, type 2) Current Visit: No Status: Chronic Qualifiers: Diabetes mellitus terminal operations supervisor insulin use: without fpc use Diabetes mellitus complication status: with kidney complications Diabetes mellitus complication detail: with chronic kidney disease Chronic kidney disease stage : on chronic dialysis Qualified Code(s): E11.22 - Type 2 diabetes mellitus with diabetic chronic kidney disease; N18.6 - End stage renal disease; Z99.2 - Dependence on renal dialysis (3) ESRD (end stage renal disease) Current Visit: No Status: Chronic Code(s): N18.6 - END STAGE RENAL DISEASE (4) HTN (hypertension) Current Visit: No Status: Chronic Code(s): I10 - ESSENTIAL (PRIMARY) HYPERTENSION Qualifiers: Hypertension type: essential hypertension Qualified Code(s): I10 - Essential (primary) hypertension (5) Seizure disorder Current Visit: No Status: Chronic Code(s): G40.909 - EPILEPSY, UNSP, NOT INTRACTABLE, WITHOUT STATUS EPILEPTICUS Comment: on AEDs - Plan soft tissue swelling - revealed on CT scan, c/w possible trauma to face, no fracture - tylenol prn, monitor on stroke TBI w/ associated seizure disorders - seizure today after no seizures for >2 years - s/p dilantin in ER, cont home dose, consider increase ESRD on dialysis - received full dialysis today - consult nephro, appreciate recs HTN - continue home meds - hydralazine prn DMII - aware, mild SSI - ACHS accuchecks code: full ppx: [facility] pcp: DANG Dispo: observe on stroke FMR H&P: Upper Level - Pertinent history 43 y/o M PMHx TBI with subsequent seizure d/o, ESRD, HTN, DM2 who presents due to a seizure. The patient was in dialysis and had taken his Dilantin earlier in the morning then usual and was starting to feel anxious and restless and then had a witnessed seizure in dialysis. He doesnt remember anything else that happened just prior or after the seizure. He reports a headache right now, but otherwise feels back to his baseline. Per the ED MARKETING ADMINISTRATIVE ASSISTANT the patient was post-ictal on arrival , but not complaining of any new weakness or numbness. The patient reports the R side of his body is always a little weaker than the left. He is unsure if he completed dialysis. - Pertinent findings Vitals: BP 150/86, RR 16, HR 72, Temp 98.2, O2 sat 98% on RA PE: Gen alert, oriented, resting comfortably in bed, no acute distress HEENT: PERRL, EOMI, R side of head missing part of skull with skin intact, mild periorbital swelling on R, MMM, helmet laying on table by bed that patient normally wears while walking CV: RRR, no murmurs Resp: CTAB, no wheezes Neuro: CNII-XII intact, 5/5 muscle strength in all four extremities, sensation grossly intact Labs: Prolactin 30.73, Phenytoin 5.4 - Plan Date/Time: 02/11/19 1551 I, Angelita Cole MD, PGY-2, have evaluated this patient and agree with findings/ plan as outlined by internet developer resident. Pertinent changes/additions are listed here. R preseptal and periorbital edema Patient does not remember hitting his head, and this was not explicitly reported by dialysis staff, however this was found on CT. Has h/o TBI. -Monitor neuro status -Obs -Will treat headache as needed Seizure Pt postictal initially, but now at baseline. Prolactin elevated, Dilantin level subtheraputic. Was loaded with Dilantin in ED. -Will touch base with neurosurgery as pt scheduled for surgery soon and had seizure -Continue Dilantin and Vimpat -Will check ammonia level -Seizure precautions -Recommend wearing helmet anytime out of bed ESRD on HD Pt unsure if he completed dialysis today. Does not appear fluid overloaded and lab values stable with no electrolyte abnormalities. -Will consult Dr. Shin for dialysis recs -Continue home meds HTN -Continue home hydralazine, carvedilol Other chronic conditions, please see internet developer note Code status: Full Addendum - Attending - Attending Attestation Date/Time: 02/12/19 8519 I personally evaluated the patient and discussed the management with Dr. Terrazas. I agree with the History, Examination, Assessment and Plan documented above with any addition or exceptions noted below.
--- NOTE | 2019-02-11 16:21 | PDOC.EVN ---
Event Note - Event Note Event Note: Pt s/p seizure vs panic attack with ?trauma to right face and mild swelling. No new neuro deficits and seemingly back at baseline for prior neuro status. Subtherapeutic levels. Check ammonia, adjust medications, consider touching base with neurosx, and monitor for additional neuro symptoms/seizure precautions. Formal note to follow.
[2019-02-11 17:50] VITALS: BMI 27.5
[2019-02-11] MEDS: Acetaminophen 325 MG TAB PO PRN ×2 (18:05→22:36)
[2019-02-11] MEDS: Lacosamide 50 mg Tablet PO SCH (21:14)
[2019-02-11] MEDS: hydrALAZINE 25 MG TAB PO SCH (21:14)
[2019-02-11] MEDS: Carvedilol 3.125 MG TAB PO SCH (21:14)
[2019-02-12] MEDS: Acetaminophen 325 MG TAB PO PRN (04:04)
--- NOTE | 2019-02-12 06:47 | PDOC.FM ---
- Subjective Subjective: pt sitting up on the side of the bed denies headache or somnolence - Objective Vital Signs & Weight: Vital Signs (12 hours) Temp Pulse Resp BP BP Pulse Ox 02/12/19 04:00 98.0 F 77 18 165/81 H 98 02/12/19 00:00 98.4 F 75 18 172/84 H 97 02/11/19 21:14 74 164/83 H 02/11/19 20:00 98.0 F 74 18 164/83 H 96 Weight Weight 84.51 kg Result Diagrams: 02/11/19 12:21 02/11/19 12:21 Phys Exam - Physical Examination Constitutional: NAD HEENT: moist MMs Neck: full ROM Gastrointestinal: no distention Musculoskeletal: no edema Neurological: moves all 4 limbs Psychiatric: normal affect Skin: no rash Dx/Plan (1) Seizure Code(s): R56.9 - UNSPECIFIED CONVULSIONS Status: Acute (2) DM type 2 (diabetes mellitus, type 2) Status: Chronic Qualifiers: Diabetes mellitus fpc 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 Diabetes mellitus complication status: with kidney complications Diabetes mellitus complication detail: with chronic kidney disease Chronic kidney disease stage : on chronic dialysis Qualified Code(s): E11.22 - Type 2 diabetes mellitus with diabetic chronic kidney disease; N18.6 - End stage renal disease; Z99.2 - Dependence on renal dialysis (3) ESRD (end stage renal disease) Code(s): N18.6 - END STAGE RENAL DISEASE Status: Chronic (4) HTN (hypertension) Code(s): I10 - ESSENTIAL (PRIMARY) HYPERTENSION Status: Chronic Qualifiers: Hypertension type: essential hypertension Qualified Code(s): I10 - Essential (primary) hypertension (5) Seizure disorder Code(s): G40.909 - EPILEPSY, UNSP, NOT INTRACTABLE, WITHOUT STATUS EPILEPTICUS Status: Chronic - Plan Plan: soft tissue swelling - revealed on CT scan, c/w possible trauma to face, no fracture - tylenol prn, monitor on stroke TBI w/ associated seizure disorders - seizure today after no seizures for >2 years - s/p dilantin in ER, cont home dose, consider increase ESRD on dialysis - consult nephro, appreciate recs - dialysis today HTN - continue home meds - hydralazine prn DMII - aware, mild SSI - ACHS accuchecks code: full ppx: [facility] pcp: DANG Dispo: DC later today after dialysis Addendum - Attending - Attending Attestation Date/Time: 02/12/19 0909 I personally evaluated the patient and discussed the management with Dr. Terrazas. I agree with the History, Examination, Assessment and Plan documented above with any addition or exceptions noted below. Patient here with breakthrough seizure in context of low Dilantin level. Will increase regimen. He is feeling well today and if doing well after his HD session will likely be discharged home with outpatient follow up at our clinic and with Dr. Shin.
[2019-02-12 07:44] VITALS: BP 116/90; TEMP 97.6
[2019-02-12] MEDS: Carvedilol 3.125 MG TAB PO SCH (08:45)
[2019-02-12] MEDS: hydrALAZINE 25 MG TAB PO SCH (08:45)
[2019-02-12] MEDS: Lacosamide 50 mg Tablet PO SCH (08:45)
[2019-02-12] MEDS ORDERED: levETIRAcetam 500 MG TAB PO SCH (09:00)
--- NOTE | 2019-02-12 09:40 | PRG ---
DATE OF SERVICE: 02/12/2019 SERVICE: Renal Medicine. SUBJECTIVE: Mr. Ayala is a 43-year-old male with ESRD and currently on maintenance hemodialysis. He was admitted due to ? of a seizure activity. According to the patient and the dialysis nurses, during dialysis, he was noted to be staring and was briefly unresponsive. No tonic-clonic activities were noted at that time. We are now being consulted for his maintenance hemodialysis. He is on Friday, Friday, and Friday dialysis. He has Friday, Friday, and Friday hemodialysis schedule. REVIEW OF SYSTEMS: No chest pain. No shortness of breath. No tonic-clonic jerking. No tremors. No asterixis. Positive for blank stares, intransigent. No nausea. No vomiting. No headache. Feels depressed. No hematochezia. No melena. No hematemesis. No abdominal pain. Appetite and energy level are fair. MEDICATIONS: Currently on; 1. Carvedilol 3.125 mg p.o. b.i.d. 2. The patient is on hydralazine 50 mg p.o. t.i.d. 3. Zofran 4 mg p.r.n. 4. Phenytoin 400 mg p.o. at bedtime. 5. Humalog sliding scale. PAST MEDICAL HISTORY: 1. ESRD, currently on maintenance hemodialysis. 2. Seizure disorder. 3. Type 2 diabetes mellitus. 4. Hypertension. 5. Status post intracranial bleed secondary to a trauma. PAST SURGICAL HISTORY: 1. Status post cuffed hemodialysis catheter placement. 2. Status post PD catheter placement with subsequent removal. 3. Status post craniotomy. 4. Status post colonoscopy. 5. Status post AV fistula placement. SOCIAL HISTORY: The patient lives in [place]. Lives alone. Single, 3 children. 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 Sedentary lifestyle. No smoking. No alcohol intake. Education, 7th grade. Status post multiple blood transfusion. ALLERGIES: PENICILLIN. TRAUMA: Status post head injury/subdural hematoma. IMMUNIZATIONS: Up-to-date. HOSPITALIZATIONS: Please see past medical history. FAMILY HISTORY: No family history of ESRD. PHYSICAL EXAMINATION: VITAL SIGNS: Blood pressure is noted at 164/83, heart rate 73, respiratory rate 16, temperature 97.6, and pulse ox 98%. GENERAL: Noted to be awake, alert, sitting comfortable. HEENT: He has pinkish conjunctivae. Anicteric sclerae. NECK: No neck mass. No carotid bruits. No JVD. CHEST: No deformities. LUNGS: Clear breath sounds. No wheezing. No crackles. HEART: Normal sinus rhythm. No murmur. No gallops. No rubs. ABDOMEN: Globular, soft, and nontender. No masses. EXTREMITIES: No edema. No deformities. DIAGNOSTIC DATA: Laboratories of February 11, 2019; sodium 137, potassium 4.4, chloride 97, carbon dioxide 27, BUN is 48, creatinine 7.93, and glucose 127. AST 21, ALT 19. Ammonia level is 22. White count is 3.2, hemoglobin 10.9. On February 11, 2019, CT scan of the brain shows no acute intracranial abnormality except for the chronic finding of gliotic changes involving the right temporal lobe. There is an associated flap. There is a right supraorbital and preseptal soft tissue swelling. ASSESSMENT AND PLAN: 1. Seizure disorder - continue current seizure medications. 2. End-stage renal disease, stable. We will continue current hemodialysis regimen on Friday, Friday, and Friday. Fluid removal only as tolerated. 3. Depression - the patient was somewhat teary-eyed today. I restarted back his Zoloft at 50 mg tablet once a day. Overall, agree with current management. Job ID: [id number]
--- NOTE | 2019-02-13 04:53 | DIS ---
DATE OF ADMISSION: 02/11/2019 DATE OF DISCHARGE: 02/12/2019 CONSULTS: Jacoby Millard MD IMAGING: CT scan brain, similar when compared to previous reports, difference being soft tissue swelling noted in the supraorbital preseptal area. PROCEDURES: None. DISCHARGE MEDICATIONS: 1. Vimpat 50 mg p.o. daily. 2. Phenytoin 400 mg p.o. at bedtime. 3. Coreg 3.125 mg p.o. b.i.d. 4. Zoloft 50 mg p.o. daily. 5. Vitamin D3 2000 units p.o. daily. 6. p.o. p.r.n. 7. Renvela 1600 mg p.o. t.i.d. 8. Lomotil 1 tablet p.o. p.r.n. 9. Auryxia 210 mg p.o. daily. 10. Naproxen 220 mg p.o. p.r.n. 11. Lipitor 40 mg p.o. at bedtime. 12. Hydralazine 50 mg p.o. t.i.d. 13. Keppra 500 mg p.o. b.i.d. DISCONTINUED MEDICATIONS: None. PRIMARY DIAGNOSIS: Soft tissue swelling. SECONDARY DIAGNOSES: 1. 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 2. End-stage renal disease, on dialysis. 3. Hypertension. 4. Diabetes mellitus type 2. HISTORY OF PRESENT ILLNESS/HOSPITAL COURSE: Mr. Ayala is a 43-year-old male who presents to the emergency department today after having seizure-like activity during dialysis. The patient had a significant postictal state, but has no neurologic deficits or repeat seizures during hospitalization. Prolactin was noted to be elevated on admission. CT scan of the brain reveals soft tissue swelling, but no cerebral edema or change to previous TBI with craniotomy. Nephrology consulted from the ED to dialyze the patient during hospitalization if necessary. Neurosurgery contacted with no response. In the emergency department, the patient was given clonidine and hydralazine for hypertension. Dilantin level was noted to be low. The patient on max dose of Dilantin taking Dilantin as tolerated, instructions given, Keppra added. The patient was seizure-free and deemed stable for discharge home with close followup. DISCHARGE INSTRUCTIONS: Location: Home. Activity: As tolerated. Diet: Renal. Followup: Follow up with PCP, Dr. Skyler Roberts, in the next 7 days and Nephrology, Dr. Jacoby Shin in 1-2 weeks. Job ID: [id number]
== END 2019-02-12 11:13 | disposition home health service (06) ==
LOC: ERS 11:18 → 2SE 16:00
PROVIDERS: ADMIT Emergency Medicine; ATTEND Emergency Medicine
DX: G40.909 Epilepsy, unspecified, not intractable, without status epilepticus (principal); I12.0 Hypertensive chronic kidney disease with stage 5 chronic kidney disease or end stage renal disease; E11.22 Type 2 diabetes mellitus with diabetic chronic kidney disease; N18.6 End stage renal disease; S06.9X0A Unspecified intracranial injury without loss of consciousness, initial encounter; M79.9 Soft tissue disorder, unspecified; Z79.899 Other long term (current) drug therapy; Z87.820 Personal history of traumatic brain injury; Z88.0 Allergy status to penicillin; Z99.2 Dependence on renal dialysis
CPT/HCPCS: 70450; 80053; 80185; 82140; 82962 ×2; 84146; 85025; 96365; 96375; 99285; G0378 ×2; 36415; 36416; J0360; J1200; J2765; J7050; J8597; Q2009

== ENCOUNTER 2019-02-16 07:32 | Outpatient (CLI) | payer MEDICARE ==
--- NOTE | 2019-02-16 11:23 | CT ---
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 COMPARISON: Noncontrast CT of 02/11/19. FINDINGS: Again noted is the large right frontotemporoparietal partial craniectomy defect. There is soft tissue density material covering this defect, which may represent a synthetic or nonossific organic flap. T here is no metallic material. There is no evidence of permeative, osteolytic, or osteoblastic lesion involving the visualized portions of the cranium, including the calvarium. There is encephalomalacia and gliosis involving the anterolateral aspect of the right temporal lobe. There is no enhancing extr a-axial fluid collection to indicate subdural empyema. There is no abnormal intra-axial enhancement. No mass effect or midline shift. No dural venous sinus thrombosis. No acute intra-axial hemorrhage. T he paranasal sinuses, and the bilateral tympanomastoid cavities, are grossly clear. IMPRESSION: 1. No CT evidence of osteomyelitis. 2. Right frontotemporoparietal craniectomy. 3. Encephalomalacia and gliosis in the right temporal lobe. POS: [facility]
== END 2019-02-16 07:33 | disposition home or self-care (01) ==
LOC: CT 07:32
PROVIDERS: ATTEND Surgery
DX: M86.9 Osteomyelitis, unspecified (principal); G93.89 Other specified disorders of brain; Z98.890 Other specified postprocedural states
CPT/HCPCS: 70470

== ENCOUNTER 2019-02-17 09:14 | Outpatient (CLI) | payer MEDICARE ==
--- NOTE | 2019-02-17 09:41 | PRG ---
DATE OF SERVICE: 02/17/2019 HISTORY: Mr. Wilbert Ayala is a very pleasant 43-year-old gentleman, who presents to the [facility] for evaluation of a callus over the plantar surface of the left forefoot. The patient also has a callus over the plantar surface of the right forefoot. The patient states that the callus over the right forefoot is associated with more pain than that over the left forefoot. The patient continues to receive assistance with dressing changes by Home Health. The patient has been receiving dressing changes of SilvaSorb sheet. The patient was recently admitted to [facility] after having been noted to have a seizure where he receives dialysis. The patient has no other complaints today. He denies any fever or chills. PHYSICAL EXAMINATION: VITAL SIGNS: Temperature 98.4, pulse 76, respirations 22, blood pressure 189/82. Accu-Chek 109. EXTREMITIES: A callus is present over the plantar surface of the right forefoot. A callus is also present over the plantar surface of the left forefoot. Nonviable tissue associated with each callus was debrided with an excisional partial thickness debridement with the use of scissors. Erythema of the plantar surface of the right forefoot is present. This area of erythema appears to be located over a bony prominence. No significant edema of the right or left foot is present on exam today. ASSESSMENT AND PLAN: 1. Right and left forefoot calluses. The patient also has an area of erythema over the plantar surface of the right forefoot, which appears to be located over a bony prominence. I will see Mr. Ayala again in 1 week. 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 2. Diabetes mellitus. The patient's Accu-Chek in clinic today is 109. 3. Hypertension. 4. End-stage renal disease. 5. Seizure disorder. Job ID: [id number]
== END 2019-02-17 09:15 | disposition home or self-care (01) ==
LOC: WCC 09:14
PROVIDERS: ATTEND Family Medicine
DX: L84 Corns and callosities (principal); I12.0 Hypertensive chronic kidney disease with stage 5 chronic kidney disease or end stage renal disease; E11.22 Type 2 diabetes mellitus with diabetic chronic kidney disease; N18.6 End stage renal disease; R56.9 Unspecified convulsions
CPT/HCPCS: 97597

== ENCOUNTER 2019-02-24 07:59 | Outpatient (CLI) | payer MEDICARE ==
--- NOTE | 2019-02-24 10:03 | PRG ---
DATE OF SERVICE: 02/24/2019 HISTORY: Mr. Wilbert Ayala is a very pleasant 43-year-old gentleman, who presents to the Wound Center for evaluation of an ulceration over the plantar surface of the left forefoot. The patient also has a callus over the plantar surface of the right forefoot. The patient reports an increase in the drainage associated with the ulceration over the plantar surface of the left forefoot. The patient continues to receive assistance with dressing changes by Home Health. Currently, the patient is receiving dressing changes of SilvaSorb sheet. The patient has no other complaints today. He denies any fever or chills. PHYSICAL EXAMINATION: VITAL SIGNS: Temperature 98.2, pulse 72, respirations 17, and blood pressure 132/63. Accu-Chek 109. EXTREMITIES: An ulceration is present over the plantar surface of the left forefoot. Callus is present over the plantar surface of the right forefoot. Nonviable tissue associated with the ulceration over the plantar surface of the left forefoot was debrided with an excisional full-thickness debridement with the use of scissors and a curette. Undermining and callus associated with the ulceration of the plantar surface of the left forefoot eliminated with the use of scissors. No purulent drainage is associated with the wound. No erythema of the skin surrounding the wound is present. No maceration of the skin of the periwound is noted. No significant edema of the left foot is present on exam today. ASSESSMENT AND PLAN: 1. Ulceration of plantar surface of left forefoot. The patient also has a callus over the plantar surface of the right forefoot. A small area of erythema over the plantar surface of the right forefoot is present, which appears to be located over a bony prominence. 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 I will see Mr. Ayala again in 1 week. Dressing changes of SilvaSorb gel sheet will be continued 3 times per week after cleansing and irrigation with the assistance of Home Health. 2. Diabetes mellitus. The patient's Accu-Chek in clinic today is 109. The patient has been reminded that for optimal wound healing, his blood glucoses should remain below 150. 3. Hypertension. 4. End-stage renal disease. 5. Seizure disorder. Job ID: [id number]
[2019-02-24] MEDS ORDERED: Sodium Chloride 0.9% 15 ML NEB ONE (11:11)
[2019-02-24] MEDS ORDERED: Lidocaine 2% PF 100 mg/5 ml Syringe ONE (11:11)
== END 2019-02-24 08:00 | disposition home or self-care (01) ==
LOC: WCC 07:59
PROVIDERS: ATTEND Family Medicine
DX: E11.621 Type 2 diabetes mellitus with foot ulcer (principal); L97.529 Non-pressure chronic ulcer of other part of left foot with unspecified severity; E11.22 Type 2 diabetes mellitus with diabetic chronic kidney disease; I12.0 Hypertensive chronic kidney disease with stage 5 chronic kidney disease or end stage renal disease; N18.6 End stage renal disease; G40.909 Epilepsy, unspecified, not intractable, without status epilepticus
CPT/HCPCS: A4218; J2001

== ENCOUNTER 2019-04-12 09:28 | Outpatient (CLI) | payer MEDICARE ==
--- NOTE | 2019-04-12 09:42 | PRG ---
DATE OF SERVICE: 04/12/2019 HISTORY: Mr. Wilbert Ayala is a very pleasant 44-year-old gentleman, who presents to the Wound Center for evaluation of an ulceration over the plantar surface of the left forefoot. The patient also has a callus over the plantar surface of the right forefoot. The patient continues to receive assistance with dressing changes by Home Health. The patient is receiving dressing changes of SilvaSorb gel sheet for the ulceration over the plantar surface of the left forefoot. The patient complains of pain associated with the callus over the plantar surface of the right forefoot. The patient has no other complaints today. He denies any fever or chills. PHYSICAL EXAMINATION: VITAL SIGNS: Temperature 98.0, pulse 70, respirations 18, and blood pressure 148/82. Accu-Chek 119. EXTREMITIES: An ulceration is present over the plantar surface of the left forefoot. Granulation tissue is present within the wound margins. Necrotic and nonviable tissue present within the wound margins was debrided with an excisional full-thickness debridement with the use of scissors and a curette. Undermining callus and desiccated tissue associated with the ulceration were eliminated with the use of scissors. No purulent drainage is associated with the wound. No erythema of the skin surrounding the wound is present. No maceration of the skin of the periwound is noted. No significant edema of the left foot is present on exam today. The callus over the plantar surface of the right forefoot was debrided with an excisional partial thickness debridement with the use of scissors. ASSESSMENT AND PLAN: 1. Ulceration of plantar surface of left forefoot. The patient also has a callus over the plantar surface of the right forefoot. A small area of erythema over the plantar surface of the right forefoot is also present, which appears to be located over a bony prominence. I will see Mr. Ayala again in 6 weeks. Dressing changes of SilvaSorb gel sheet will be continued 3 times per week after cleansing and irrigation with the assistance of Home Health. 2. Diabetes mellitus. The patient's Accu-Chek in clinic today is 119. The patient has been reminded that for optimal wound healing, his blood glucoses should remain below 150. 3. Hypertension. 4. End-stage renal disease. 5. Seizure disorder. Job ID: [id number]
[2019-04-12] MEDS ORDERED: Sodium Chloride 0.9% 15 ML NEB ONE (15:00)
== END 2019-04-12 09:29 | disposition home or self-care (01) ==
LOC: WCC 09:28
PROVIDERS: ATTEND Family Medicine
DX: E11.621 Type 2 diabetes mellitus with foot ulcer (principal); L97.529 Non-pressure chronic ulcer of other part of left foot with unspecified severity; I12.0 Hypertensive chronic kidney disease with stage 5 chronic kidney disease or end stage renal disease; N18.6 End stage renal disease; G40.909 Epilepsy, unspecified, not intractable, without status epilepticus
CPT/HCPCS: 11042; 97597; A4218

== ENCOUNTER 2019-04-23 14:13 | Inpatient (IN) | payer MEDICARE ==
[2019-05-13] MEDS ORDERED: Levofloxacin 500 mg/D5W 100 ml Premix Bag ONE (08:32)
[2019-05-13] MEDS ORDERED: Clindamycin/D5W 900 mg/50 ml Premix Bag ONE (08:32)
[2019-05-13] MEDS ORDERED: Lidocaine 0.5%/Epinephrine 1:200,000 50 ml Vial ONE (10:17)
[2019-05-13] MEDS ORDERED: Sodium Chloride 0.9% 10 ML ONE ×2 (10:17→12:37)
[2019-05-13] MEDS ORDERED: Bacitracin Zinc Ointment 30 gm TUBE ONE (10:17)
[2019-05-13] MEDS ORDERED: Thrombin 5000 UNITS/5 ML VIAL ONE (10:17)
[2019-05-13] MEDS ORDERED: Rocuronium Bromide 10 MG/ML (10ML VIAL) ONE (10:34)
[2019-05-13] MEDS ORDERED: Glycopyrrolate 0.2 MG/ML 5 ML SYRINGE ONE (10:34)
[2019-05-13] MEDS ORDERED: Ondansetron PF 4 MG/2 ML Vial ONE (10:34)
[2019-05-13] MEDS ORDERED: PROPOFOL 200 MG/20 ML VIAL ONE (10:34)
[2019-05-13] MEDS ORDERED: Lidocaine 1% PF 5 ML VIAL ONE (10:34)
[2019-05-13] MEDS ORDERED: Midazolam HCl 2 mg/2 ml Vial ONE (10:38)
[2019-05-13] MEDS ORDERED: levETIRAcetam 1000 MG/100 ML PREMIX BAG ONE (10:38)
[2019-05-13] MEDS ORDERED: levETIRAcetam 500 MG/100 ML PREMIX BAG ONE (10:38)
[2019-05-13] MEDS ORDERED: Fentanyl 100 MCG/2 ML VIAL ONE ×3 (10:55→15:26)
[2019-05-13] MEDS ORDERED: Ondansetron HCl/PF 4 MG/2 ML Vial IVP PRN (12:40)
[2019-05-13] MEDS ORDERED: Morphine Sulfate 2 MG/ML SYRINGE SLOW IVP PRN (12:40)
[2019-05-13] MEDS ORDERED: Promethazine HCl 25 MG/ML VIAL SLOW IVP PRN (12:40)
[2019-05-13] MEDS ORDERED: PACU-Morphine 4MG/ML VIAL SLOW IVP PRN (12:40)
[2019-05-13] MEDS ORDERED: Promethazine HCl 25 MG/ML VIAL IM PRN (12:40)
[2019-05-13] MEDS ORDERED: HYDROmorphone 2 MG/ML VIAL SLOW IVP PRN (12:40)
[2019-05-13] MEDS ORDERED: HYDROcodone/Acetaminophen 7.5/325 mg Tablet PO PRN (12:42)
[2019-05-13] MEDS ORDERED: Fleet Enema 133 ML BOT PR PRN (12:46)
[2019-05-13] MEDS ORDERED: Docusate 100 MG CAP PO PRN (12:46)
[2019-05-13] MEDS ORDERED: Promethazine HCl 25 MG/ML VIAL ONE (13:27)
--- NOTE | 2019-05-13 16:44 | CON ---
DATE OF CONSULTATION: REASON FOR CONSULTATION: The patient is a 44-year-old gentleman, who underwent a right skull flap replacement. He had osteomyelitis, was treated with broad-spectrum antibiotics per Infectious Disease in the ICU. He is awake, alert, and responsive. Denies any shortness of breath. He has a pain level of 4 he tells me. Otherwise, denies any other problems. He was just here in the hospital in January, traumatic brain injury, seizure disorders, end-stage renal disease, hypertension, and diabetes. Apparently, he has been followed by primary care physician at [facility]. HOME MEDICATIONS: 1. Lipitor 40. 2. Aspirin 81. 3. Zestril. 4. Coreg 3.25 twice a day. 5. Renvela 1600 twice a day. 6. Zoloft 100. 7. Dilantin 400. 8. Keppra 500 b.i.d. 9. Hydralazine 50, three times a day. 10. Tramadol p.r.n. ALLERGIES: PENICILLIN. SOCIAL HISTORY: No recent alcohol or tobacco abuse. PAST SURGICAL HISTORY: Craniotomy, AV malformation, subdural hematoma, AV fistula, right 5th toe amputation. PHYSICAL EXAMINATION: GENERAL: In the ICU, he is awake, alert, responsive. VITAL SIGNS: Sats 100%, pulse 80, blood pressure CHEST: Reveals no wheezing, no crackles. CARDIAC: Normal S1, S2. No gallops. ABDOMEN: Soft. IMPRESSION: 1. End-stage renal disease. 2. Head trauma complicated by osteomyelitis. 3. anticoagulation 2016. 4. Seizure disorder. PLAN: Otherwise at this stage, continue antibiotics per Infectious Disease. Appears to be relatively stable. DISPOSITION: As per Neurosurgery. Consultation note, 70 minutes, 50% direct patient care. Job ID: [id number]
[2019-05-13] MEDS: Sodium Chloride 0.9% 1,000 ML IV SCH (16:45)
[2019-05-13] MEDS: hydrALAZINE 25 MG TAB PO SCH ×2 (16:46→21:11)
[2019-05-13] MEDS: Clindamycin/D5W 900 MG in Premix Bag 1 BAG IVPB SCH ×2 (16:46→19:35)
[2019-05-13] MEDS ORDERED: hydrALAZINE 20 MG/ML VIAL SLOW IVP PRN (17:27)
[2019-05-13] MEDS ORDERED: Dextrose 5% in Water 1,000 ML IV PRN (17:27)
[2019-05-13] MEDS ORDERED: Dextrose 50% Abboject 50 ML SYRINGE SLOW IVP PRN (17:27)
[2019-05-13] MEDS ORDERED: HumaLOG 300 UNITS/3 ML VIAL SC PRN ×2 (17:27)
[2019-05-13] MEDS: Acetaminophen 325 MG TAB PO PRN (19:35)
[2019-05-13] MEDS ORDERED: levETIRAcetam 500 MG TAB PO SCH (21:00)
[2019-05-13] MEDS: Lisinopril 5 MG TAB PO SCH (21:11)
[2019-05-13] MEDS: Atorvastatin Calcium 40 MG TAB PO SCH (21:12)
[2019-05-13] MEDS: Sevelamer Carbonate 800 MG TAB PO SCH (21:13)
[2019-05-13] MEDS: Carvedilol 3.125 MG TAB PO SCH (21:13)
[2019-05-13] MEDS: Ondansetron PF 4 MG/2 ML Vial IVP PRN (21:21)
[2019-05-13] MEDS: Lacosamide 50 mg Tablet PO SCH (21:28)
[2019-05-13] MEDS: Morphine 2 MG/ML SYRINGE SLOW IVP PRN ×2 (22:14→23:02)
[2019-05-13] MEDS ORDERED: traMADol HCl 50 MG TAB PO PRN ×2 (22:39)
[2019-05-13] MEDS: Promethazine HCl 25 MG/ML VIAL SLOW IVP PRN (22:50)
--- NOTE | 2019-05-13 23:57 | CON ---
DATE OF CONSULTATION: REASON FOR ADMISSION: For the replacement of a right skull flap. REASON FOR CONSULTATION: For medical management. HISTORY OF PRESENT ILLNESS: Mr. Ayala is a pleasant 44-year-old gentleman who underwent a right skull flap. He had to have it replaced on this admission due to osteomyelitis. He is currently in the ICU and has only minimal complaints of headache. He has a history of diabetes mellitus type 2 and says he has been diabetic for the last 6 years. He says his diabetes is controlled by diet. He has no complaints of any polyuria or polydipsia. No other fevers or chills, nausea, vomiting, etc. He also has a history of seizure disorder and says he has not had a seizure in the last year. He also has a history of traumatic brain injury and this is what resulted in the craniotomy. REVIEW OF SYSTEMS: All systems were reviewed and were negative except for that mentioned in the History of Present Illness. PAST MEDICAL HISTORY: Significant for seizure disorder; end-stage renal disease, on hemodialysis; hypertension; diabetes mellitus. PAST SURGICAL HISTORY: He has had a craniotomy, history of a right 5th toe amputation, repair of an AV malformation. FAMILY HISTORY: Significant for diabetes mellitus. SOCIAL HISTORY: He is single, has 3 sons. He is a nonsmoker and nondrinker. ALLERGIES: TO PENICILLIN. CURRENT MEDICATIONS: Include; 1. Keppra 500 mg twice daily. 2. Vimpat 50 mg twice a day. 3. Apresoline 50 mg t.i.d. 4. Carvedilol 3.125 mg twice daily. 5. Lipitor 40 mg at bedtime. 6. Tramadol 50 mg q.6 p.r.n. 7. Renvela 1600 mg twice daily. 8. Zoloft 100 mg daily. 9. Phenytoin 400 mg at bedtime. 10. Aleve 220 mg as needed. 11. Lisinopril 5 mg twice daily. 12. Auryxia 210 mg t.i.d. 13. Diphenoxylate 2.5 mg as directed. 14. Vitamin D3 of 2000 units daily. 15. Aspirin 81 mg a day. CODE STATUS: Full code. PHYSICAL EXAMINATION: GENERAL: He is alert and oriented. He appears to be in no acute distress. VITAL SIGNS: Blood pressure is 141/87, heart rate is 59, respiratory rate of 20, and temperature is 97.6. HEENT: Pupils are equal, round, and reactive. Extraocular muscles are intact. His sclerae are anicteric. Throat; no erythema, no exudates. NECK: No adenopathy. No bruits. LUNGS: Clear to auscultation. There is no wheezing, no rales, no rhonchi. CARDIOVASCULAR: He has a normal S1 and S2. There is no S3 or S4. No murmurs, clicks, or rubs. ABDOMEN: Soft. It is nontender and nondistended. Positive for bowel sounds. No rebound. No guarding. EXTREMITIES: There is no clubbing, cyanosis, no edema. NEUROLOGICAL: The exam is grossly intact. SKIN AND INTEGUMENT: No skin changes. No rash. He has only a fingerstick blood glucose today for lab work, which is 103. ASSESSMENT: This is a pleasant 44-year-old gentleman who is being admitted for removal of a skull flap due to osteomyelitis and replaced. He is currently postop and has had adequate control of his surgical pain. He is also diabetic and his first blood glucose is within a good range. His diabetes is diet controlled. 1. For diabetes mellitus, we will place him on a sliding scale. No scheduled medications will be given. 2. Hypertension. We will need to reconcile and restart his home medications and have p.r.n. medications available. End-stage renal disease, on hemodialysis. 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 3. Deep venous thrombosis prophylaxis will be with SCDs. We will hold off on anticoagulation due to the recent neurosurgery and we will be happy to follow along with you, with this very pleasant gentleman. Job ID: [id number]
[2019-05-14] MEDS: Clindamycin/D5W 900 MG in Premix Bag 1 BAG IVPB SCH ×4 (01:15→21:26)
[2019-05-14] MEDS: Sodium Chloride 0.9% 1,000 ML IV SCH ×3 (01:16→23:14)
[2019-05-14] MEDS: Ondansetron PF 4 MG/2 ML Vial IVP PRN (01:37)
[2019-05-14] MEDS: Scopolamine 1.5 mg/72 hour Patch TD SCH (03:13)
[2019-05-14] MEDS ORDERED: MANNITOL 20% IVPB SCH (03:15)
[2019-05-14] MEDS ORDERED: Bacitracin Zinc Ointment 30 gm TUBE ONE (03:18)
[2019-05-14] MEDS ORDERED: Sodium Chloride 0.9% 10 ML ONE (03:18)
[2019-05-14] MEDS ORDERED: Thrombin 5000 UNITS/5 ML VIAL ONE (03:18)
[2019-05-14] MEDS ORDERED: Lidocaine 0.5%/Epinephrine 1:200,000 50 ml Vial ONE (03:18)
[2019-05-14] MEDS ORDERED: Fentanyl 100 MCG/2 ML VIAL ONE ×2 (03:51→05:37)
[2019-05-14] MEDS ORDERED: Phytonadione 10 MG/ML AMP ONE (04:43)
[2019-05-14] MEDS ORDERED: Rocuronium Bromide 50 MG/5 ML VIAL ONE (05:25)
[2019-05-14] MEDS ORDERED: ADMIXTURE FEE IV SCH (05:30)
[2019-05-14] MEDS ORDERED: [UNRECOGNIZED DRUG - OTHER] IV SCH (05:30)
[2019-05-14] MEDS ORDERED: HUM PROTHROMBIN CPLX IV SCH (05:30)
[2019-05-14] MEDS ORDERED: Phenylephrine HCL 10 MG/ML VIAL ONE ×2 (05:34)
--- NOTE | 2019-05-14 05:47 | PRG ---
DATE OF SERVICE: 05/14/2019 I met Wilbert Ayala in the operating room this evening and early hours of the morning. A call was made to the neurosurgery on-call service about vomiting and neurological deterioration. A CT scan showed a large epidural hematoma. We decided on emergent evacuation thereof. He had been intubated and a central line was going in when I encountered him, attempted some sterile aspirations under the flap while the central line was being placed, but all of the clot was solidified and very little came out through the syringe. As soon as the central line was placed, the patient was positioned for surgery. Job ID: [id number]
[2019-05-14] MEDS ORDERED: Propofol 1,000 MG/100 ML VIAL IV ONE ×2 (06:10→12:23)
[2019-05-14 06:17] LABS: Fibrinogen 248 mg/dL (253-463)
[2019-05-14 06:18] LABS: D-Dimer Test 2.76 *mcg/mL (0.27-0.43); FSP-Qualitative ABNORMAL (Normal); FSP-Semiquantitative >=20 & <40 mcg/mL (Less than 5); INR-International Normal Ratio 1.2; PTT 28.8 SEC (22.9-36.1); Prothrombin Time 15.1 SEC (12.0-14.7)
[2019-05-14 06:20] LABS: Platelet Count 115 thou/uL (130-400)
--- NOTE | 2019-05-14 07:04 | OP ---
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 PREOPERATIVE DIAGNOSES: Postoperative epidural hematoma with mass effect and neurological decline. POSTOPERATIVE DIAGNOSES: Postoperative epidural hematoma with mass effect and neurological decline. OPERATIVES PROCEDURE: Reopening craniotomy incision, removal of prosthetic skull flap, evacuation of epidural hematoma, placement of 2 drains, closure of skin. PREOPERATIVE MEDICATION: Clindamycin 900 mg IV had been given within 2 hours of start time. DRAIN NUMBER: 2. DRAIN TYPE: 10-[place]rick subgaleal. DESCRIPTION OF OPERATION: The patient was brought to the operating room. General endotracheal anesthesia was induced. A central line was placed and a femoral arterial line was placed during the case. As soon as the central line went in, the patient had his right shoulder bumped and his head turned to the left. The head was supported by a gel-filled doughnut-shaped headrest. We prepped the scalp and removed the tisha and the drain. We re-prepped the scalp. We draped in the usual fashion. We reopened the previous incision by cutting suture and folded our scalp flap forward. There was a subgaleal hematoma, which was extensive and removed as a single unit. The prosthetic skull flap was removed and a large epidural hematoma was evacuated very quickly. The edges of the bone were bleeding, the galea was bleeding, the incision was bleeding; all of this oozing was controlled bipolar cautery until we realized that there was a likely coagulation deficit. We ordered platelets and Kcentra. We irrigated with bacitracin irrigation. We placed 2 drains and tunneled them superiorly and inferiorly through two separate stab incisions. We closed the wound with vertical mattress sutures as quickly as possible. Sterile dressing was applied. This was a clean case, no contamination. Job ID: [id number]
--- NOTE | 2019-05-14 07:47 | CT ---
PRELIMINARY REPORT/[facility]/EMERGENCY AFTER HOURS EXAM EXAM: CT Head Without Contrast EXAM DATE/TIME: 05/14/2019 6:51 AM CLINICAL HISTORY: 44 years old, male; Altered mental status/memory loss; Prior surgery; Additional info: Removed flap and had a large epidural hematoma, two drains were placed in TECHNIQUE: Imaging protocol: Computed tomography of the head without contrast. COMPARISON: CT Brain WO Con 05/14/2019 2:32 AM FINDINGS: Brain: Normal. No hemorrhage. Unremarkable white matter. No mass effect. Ventricles: Normal. No ventriculomegaly. Bones/joints: Status post craniectomy within the right temporal frontoparietal region. Surgical drain in the soft tissues. Postoperative changes including air, fluid, and a small amount of blood. Sinuses: See Bones/joints Finding. Mastoid air cells: Visualized mastoid air cells are well aerated. No mastoid effusion. Soft tissues: Unremarkable. IMPRESSION: 1. Status post craniectomy within the right temporal frontoparietal region. Surgical drain in the sof t tissues. Postoperative changes including air, fluid, and a small amount of blood. Near-complete resolution/significant improvement of the previously visualized extra-axial fluid with air and blood. 2. Significant improvement with only minimal residual subfalcine shift of structures. Impression. Thank you for allowing us to participate in the care of your patient. Dictated and Authenticated by: Chuy Lopez MD 05/14/2019 7:17 AM Central Time ([place] & [place]) FINAL REPORT HEAD CT WITHOUT CONTRAST 05/14/2019 6:52 AM COMPARISON: 05/14/2019 2:35 AM HISTORY: Status post evacuation of epidural collection on the right. FINDINGS: I agree with the preliminary [facility] report. There is a residual complex right epidural fluid collection measuring up to 1.3 cm in transverse dimension, markedly decreased in size when compared to the prior exam. There are 2 associated postsurgical drains within the scalp on the right. There is stable hyperdensity along the dura suggesting thickening and probable minimal hemorrhage in this region. There is evidence of prior right frontal craniectomy. There is subfalcine herniation with midline donna ft from right to left measuring 8 mm, markedly improved when compared to the prior exam. IMPRESSION: Interval surgical treatment of previously noted large right epidural complex fluid collection. Residu al epidural fluid collection noted, for which follow-up is advised. The degree of right to left midline shift has significantly improved. Continued follow-up advised. Code QA Transcribed Date/Time: 05/14/2019 8:40 AM
[2019-05-14 08:01] LABS: Actual Bicarbonate (HCO3a) 23.2 mEq/L (22-28); Base Excess (BEa) -0.8 mEq/L (-2.0 to +3.0); CO2 Tension 35.3 mmHg (35.0-45.0); Calcium, Ionized 1.02 mmol/L (1.12-1.30); Carboxyhemoglobin (COHb) 1.2 gm% (0.0-3.0); Hemoglobin (Hb) 8.3 g/dL (14.0-18.0); O2 Tension (PaO2) 154.8 mmHg (80.0-100.0); Potassium - ABG Lab 7.04 mmol/L (3.70-5.30); pH, Arterial 7.44 (7.35-7.45)
[2019-05-14 08:03] LABS: ALV-art Gradient 86.275 (0-20); Puncture Site LRA
--- NOTE | 2019-05-14 08:15 | CT ---
PRELIMINARY REPORT/[facility]/EMERGENCY AFTER HOURS PROCEDURE: EXAM: CT Head Without Contrast EXAM DATE/TIME: 05/14/2019 2:32 AM CLINICAL HISTORY: 44 years old, male; Altered mental status/memory loss; Patient HX: AMS, vomitting. S/P craniectomy. H /o osteomyelitis. TECHNIQUE: Imaging protocol: Computed tomography of the head without contrast. COMPARISON: No relevant prior studies available. FINDINGS: Tubes, catheters and devices: Right sugaleal edema with fluid, air, and drain noted. Skin tisha pre sent. Brain: There is large right lateral extra-axial fluid collection measuring grossly 13.1 x 3.5 cm cont aining combination of hemorrhage, air, and low attenuation fluid which exerts significant mass effect upon the brain parenchyma with right lateral ventricular effacement and approximately 14 mm of leftw michael midline shift. There is hydrocephalus as evidenced by moderate dilation of the occipital and temp oral horns of the left lateral ventricle. No acute parenchymal hemorrhage ischemic stroke identified. Ventricles: See Brain Finding. Bones/joints: Right sided craniectomy defect with synthetic graft placement. Sinuses: Visualized sinuses are unremarkable. No fluid levels. Mastoid air cells: Visualized mastoid air cells are well aerated. No mastoid effusion. Soft tissues: See Tubes, Catheters And Devices Finding. IMPRESSION: Large mixed attenuation right sided extra-axial collection, a portion of which is accutely hemorrhage , with significant midline shift. Correlate with prior exams if available. There is no currently avai lable prior exam. THIS REPORT CONTAINS FINDINGS THAT MAY BE CRITICAL TO PATIENT CARE. The findings were verbally commun icated via telephone conference with Rashid Mckeon by Dr. Porter on 05/14/2019 2:57 AM CDT. The results were acknowledged and understood. Thank you for allowing us to participate in the care of your patient. Dictated and Authenticated by: Naomi Porter MD 05/14/2019 2:59 AM Central Time ([place] & [place]) FINAL REPORT HEAD CT WITHOUT CONTRAST: Date: 05/14/19 HISTORY: Altered mental status. Osteomyelitis. COMPARISON: 02/16/19, 02/11/19. FINDINGS: There is evidence of a right calvarial craniectomy. There is evidence of air and edema in the subgale al space, along with mixed attenuation hemorrhage and fluid with air in the right extra-axial space. There is mass effect and effacement of the right lateral ventricle. There is sulcal effacement of the right cerebrum. There is leftward shift of 14-15 mm. IMPRESSION: Mixed attenuation right-sided extra-axial collection which has components of hemorrhage and fluid. r attenuation is noted. There is associated mass effect, sulcal effacement, and midline shift. Note, there has been a subsequent head CT performed at 0651 hours. Please refer to that report for the most recent findings. This report is in agreement with the preliminary report by [facility]. POS: [facility]
--- NOTE | 2019-05-14 08:21 | OP ---
DATE OF PROCEDURE: 05/13/2019 ENVIRONMENTAL TECH: Wagner Arriaga PA-C PREPROCEDURE DIAGNOSIS: Need to restore cosmesis with right skull flap. POSTPROCEDURE DIAGNOSIS: Need to restore cosmesis with right skull flap. PROCEDURE PERFORMED: Placement of prosthetic right skull flap image. DESCRIPTION OF PROCEDURE: After informed consent was obtained from the patient , the patient was brought to the OR. Proper patient, pause, and identification were carried and he was placed under excellent endotracheal anesthesia. His head was turned to the left, showing a question-natasha incision that had completely healed. This was drawn out. Hair was clipped in this region. This area was sterilely cleansed, prepared, and draped. Proper patient, pause, and identification were caught carried out. The wound was then opened. The scalp reflected. The bone edges identified for attachment of the custom implant,titanium plates and screws used for fixation. Copious irrigation and maximal hemostasis occurred throughout. The wound was then closed in anatomic layers over a drain. The patient emerged from general anesthesia neurologically at preoperative baseline of following commands. Job ID: [id number] [facility]
[2019-05-14 08:22] LABS: #Lymphocytes 0.6 thou/uL (1.20-3.40); #Monocytes 0.4 thou/uL (0.11-0.59); #Neutrophils 3.3 thou/uL (1.40-6.50); %Basophils 0.1 % (0.0-1.0); %Eosinophils 0.2 % (0.0-10.0); %Lymphocytes 14.6 % (21.0-51.0); %Monocytes 9.5 % (0.0-10.0); %Neutrophils 75.7 % (42.0-75.0); Hemoglobin 8.3 g/dL (14.0-18.0); Mean Corpuscular HGB CONC 34.4 g/dL (32.0-36.0); Mean Corpuscular Volume 98.7 fL (78.0-98.0); Mean Platelet Volume 7.7 fL (7.4-10.4); Platelet Count 142 thou/uL (130-400); Red Blood Cell (RBC) Count 2.43 mill/uL (4.70-6.10); White Blood Cell (WBC) Count 4.4 thou/uL (4.8-10.8)
[2019-05-14 08:35] LABS: Anion Gap 18 mmol/L (10-20); BUN (Urea Nitrogen) 47 mg/dL (8.9-20.6); Calc. Creatinine Clearance 13 mL/min (70-130); Carbon Dioxide 22 mmol/L (22-29); Chloride 95 mmol/L (98-107); Estimated GFR-MDRD 7; Glucose 110 mg/dL (70-105); Sodium 128 mmol/L (136-145)
[2019-05-14 08:41] LABS: Potassium 7.1 mmol/L (3.5-5.1)
[2019-05-14] MEDS ORDERED: niCARdipine 20MG In NaCl 20 MG/200 ML BAG IVPB SCH (08:45)
[2019-05-14] MEDS ORDERED: Succinylcholine Chloride 20 MG/ML 10 ml SYRINGE FS ONE (09:04)
[2019-05-14] MEDS ORDERED: Lidocaine 1% PF 5 ML VIAL ONE (09:04)
[2019-05-14] MEDS ORDERED: PHENYLEPHRINE-NS 100 MCG/ML 10 ML SYRINGE ONE (09:04)
[2019-05-14] MEDS ORDERED: PROPOFOL 200 MG/20 ML VIAL ONE (09:04)
[2019-05-14] MEDS ORDERED: Rocuronium Bromide 10 MG/ML (10ML VIAL) ONE (09:04)
[2019-05-14] MEDS ORDERED: Calcium Gluconate 4.6 MEQ in Sodium Chloride 0.9% 100 ML IVPB SCH (09:15)
[2019-05-14] MEDS: Lisinopril 5 MG TAB PO SCH ×2 (09:28→21:32)
[2019-05-14] MEDS: Carvedilol 3.125 MG TAB PO SCH ×2 (09:28→21:32)
[2019-05-14] MEDS: Sevelamer Carbonate 800 MG TAB PO SCH ×2 (09:28→21:32)
[2019-05-14] MEDS: hydrALAZINE 25 MG TAB PO SCH ×3 (09:29→21:29)
--- NOTE | 2019-05-14 09:42 | PRG ---
DATE OF SERVICE: 05/14/2019 SUBJECTIVE: The patient is seen and examined at bedside. He is intubated and sedated. He went for the neurosurgical intervention to evacuate a postoperative epidural hematoma, which was causing mass effect and neurological decline. Dr. Vang on duty operation this morning at 5 o'clock. He is sedated, at this point, receiving IV fluids. OBJECTIVE: VITAL SIGNS: Blood pressure is 175/100, pulse is 91, respiratory rate is 18, O2 saturation is 100%. He is on FiO2 of 40%. LUNGS: Clear. HEART: S1 and S2 normal. No S3. No S4. ABDOMEN: Soft, nondistended. Bowel sounds present, sluggish. EXTREMITIES: No clubbing, cyanosis, or edema. NEUROLOGICAL: Postponed since he is under sedation. LABORATORY DATA: Platelet count is 115. INR is 1.2. PT is 15.1, APTT 28.8, fibrinogen 248. D-dimer is 2.76. Glucose is ranging from [address] was done this morning after the surgery and it shows some improvement of the epidural hematoma on the right side. IMPRESSION: 1. Diabetes mellitus, on sliding scale. 2. Postoperative epidural hematoma, status post neurosurgical intervention this morning. 3. Hypertension. 4. Seizure disorder. 5. End-stage renal disease, on hemodialysis. PLAN: Plan is to continue on current regimen with IV fluids and sedation. We will start him on Cardene drip and use hydralazine p.r.n. as needed if his blood pressure starts raising up for more than 140 systolic. We will try to switch his p.o. Keppra to IV, and we will notify his beef specialist about the patient's location. Job ID: [id number]
[2019-05-14] MEDS: Lacosamide 50 mg Tablet PO SCH ×2 (10:44→22:15)
--- NOTE | 2019-05-14 11:22 | CON ---
DATE OF CONSULTATION: SERVICE: Renal Medicine. HISTORY OF PRESENT ILLNESS: Mr. Ayala is a 44-year-old male with ESRD and underwent a right skull flap replacement. However, the said hospital course was marred by the development of postoperative epidural hematoma with mass effect and neurological deterioration. He underwent a reopening of the craniotomy incision and removal of the prosthetic skull flap as well as evacuation of the epidural hematoma. We are now being consulted for his maintenance hemodialysis. REVIEW OF SYSTEMS: Not obtainable since the patient is sedated. MEDICATIONS: The patient medications include the following; 1. Lipitor 40 mg at bedtime. 2. [place] 7.5/325 q.4 p.r.n. 3. Vitamin D3 of 2000 international units daily. 4. Coreg 3.125 mg p.o. b.i.d. 5. Clindamycin 900 mg IV q.6 hours. 6. P.r.n. Lomotil. 7. Hydralazine 50 mg p.o. t.i.d. 8. Humalog sliding scale. 9. Vimpat 50 mg p.o. b.i.d. 10. Levetiracetam 500 mg IV b.i.d. 11. Levaquin 500 mg IV q.24 hours. 12. Zestril 5 mg p.o. b.i.d. 13. Dilantin ER 400 mg at bedtime. 14. Zoloft 100 mg q.a.m. 15. Renvela 800 mg 2 tablets t.i.d. with meals. 16. Normal saline 75 mL/h. PAST MEDICAL HISTORY: 1. History of ESRD from presumed diabetic nephropathy. 2. Type 2 diabetes mellitus. 3. History of seizure disorder. 4. Hyperphosphatemia. 5. Hypertension. 6. Status post intracranial bleed. PAST SURGICAL HISTORY: Status post multiple craniotomy, status post AV fistula placement, status post cuffed hemodialysis catheter placement, and status post PD catheter placement with subsequent removal. The patient is also status post colonoscopy. SOCIAL HISTORY: The patient is . Lives alone. He is single, has 3 children. 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 No alcohol. No smoking. Education, 7th grade. Status post multiple blood transfusion. ALLERGIES: PENICILLIN. TRAUMA: Status post head injury/subdural hematoma. IMMUNIZATIONS: Up-to-date. HOSPITALIZATIONS: Please see Past Medical History. FAMILY HISTORY: No family history of ESRD. PHYSICAL EXAMINATION: VITAL SIGNS: Blood pressure is 172/95, heart rate 91, respiratory rate 15, and pulse ox 100%. GENERAL: The patient is sedated, intubated, on ventilator support. SKIN: Adequate turgor. HEENT: He has a dressing noted in his head/scalp area. Pinkish conjunctivae. Anicteric sclerae. NECK: No neck mass. No carotid bruits. No JVD. CHEST: No deformities. LUNGS: Clear breath sounds. No wheezing. No crackles. HEART: Normal sinus rhythm. No murmurs. No gallops. No rubs. ABDOMEN: Globular, soft, and nontender. EXTREMITIES: No edema. No deformities. LABORATORY DATA: Laboratories of May 14, 2019; white count 4.4, hemoglobin 8.3, and platelet count is 142,000. Sodium 128, potassium 7.1, chloride 95, carbon dioxide is 22, BUN 47, creatinine 8.74, glucose 110, and calcium 8.0. ASSESSMENT AND PLAN: 1. End-stage renal disease. We will do emergent hemodialysis due to the hyperkalemia. For the moment, we will give one vial of calcium gluconate to tide him over. We will adjust the potassium bath with dialysis. 2. Fluid removal will be only removed as tolerated. We will use no heparin due to the recent surgery. 3. Status post craniotomy with evacuation of the epidural hematoma - stable. Neurosurgery is following. 4. Anemia. Continuing weekly Epogen with the patient. Overall, prognosis remains guarded. Agree with current management. Job ID: [id number]
--- NOTE | 2019-05-14 11:26 | PRG ---
DATE OF SERVICE: 05/14/2019 SUBJECTIVE: Wilbert Ayala remains intubated in the vent. He went back to surgery for a large hematoma. OBJECTIVE: VITAL SIGNS: Pulse 75, blood pressure 175/100, respirations 120, and saturations 100%. CHEST: No wheezing. CARDIAC: Normal S1 and S2. No gallops. ABDOMEN: No masses. LABORATORY DATA: White count 4000, , and platelet count 142. The pO2 is 154, pCO2 . His potassium is 7.1 and creatinine is 8.74. ASSESSMENT: Chronic renal failure, status post emergency evacuation of a large hematoma with bleeding numbers do not suggest disseminated intravascular coagulation at this stage. PLAN: The patient is intubated. He is to go back to surgery again on Friday for further assessment and closure of his wounds. He will be dialyzed today. Supportive care, neb treatment, and nutrition. We will follow. One-half hour of critical care time. Job ID: [id number]
--- NOTE | 2019-05-14 11:32 | PRG ---
DATE OF SERVICE: 05/14/2019 SUBJECTIVE: Mr. Ayala is postoperative day 1 from placement of right custom implant following remote hemicraniectomy. He is dialysis dependent and has cardiomyopathy. Surgery was uncomplicated. Postoperatively, the patient was doing well until approximately 9 to 10 p.m. last night when he began to develop headache, nausea, and vomiting without neurologic change. Unfortunately, this progressed neurologic change where he is difficult to awake and only to noxious stimuli. Head CT demonstrated a very large epidural hematoma and subgaleal hematoma despite having a subgaleal drain in place and pores in the implant. Laboratory data this morning, coagulation studies demonstrated elevated PT, low fibrinogen, high fibrinogen degradation products, and high D-dimer all consistent with disseminated intravascular coagulation. Obviously, the patient is at risk for this with recent surgery and kidney failure for which he is dialysis dependent. Nevertheless, obviously given his acute decline and radiologic findings, he was taken by my colleague, Dr. Vang for life-saving purposes and the hematoma was evacuated along with removal of his custom implant and his implant was saved. His wound was then reclosed over multiple drains and the patient's exam while he remains intubated has improved to following commands bilaterally, sluggishly reactive pupils. Very pleased with his outcome both clinically and postoperative CT demonstrates significant improvement in his midline shift and extra-axial hematoma burden. At this point, I would like to keep Mr. Ayala intubated and sedated. Obviously, he has metabolically been through a lot, he is in DIC and added to that are his low platelets, which again with the other labs already mentioned confirmed this. He is at high risk for reaccumulation. I would like to plan to bring him back to surgery in the next 48 to 72 hours for replacement of his custom implant as I do not think he needs this off if we can get his DIC under control. He also have various derangements such as anemia and obviously elevated creatinine given his renal failure. I am sure his platelets qualitatively are defective as well. Nevertheless, we will continue to keep a close eye on him and also watch for aspiration pneumonia and likely get an ultrasound of his legs tomorrow. Job ID: [id number]
[2019-05-14 11:45] LABS: Fibrinogen 277 mg/dL (253-463)
[2019-05-14 11:46] LABS: INR-International Normal Ratio 1.1; PTT 28.2 SEC (22.9-36.1); Prothrombin Time 14.6 SEC (12.0-14.7)
[2019-05-14 11:47] LABS: D-Dimer Test 1.97 *mcg/mL (0.27-0.43)
[2019-05-14 12:00] LABS: FSP-Qualitative ABNORMAL (Normal); FSP-Semiquantitative >=5 & <20 mcg/mL (Less than 5)
[2019-05-14 12:03] LABS: Platelet Count 136 thou/uL (130-400)
[2019-05-14] MEDS ORDERED: PROPOFOL 0 ML ONE (12:22)
[2019-05-14] MEDS ORDERED: Propofol BOLUS 1,000 MG/100 ML VIAL IV PRN (12:56)
[2019-05-14] MEDS: Propofol 1,000 MG/100 ML VIAL IV PRN (19:40)
[2019-05-14] MEDS ORDERED: DISCONTINUE PREVIOUS NARCOTIC PAIN MEDICATIONS AND BENZODIAZEPINES FS SCH (21:05)
[2019-05-14] MEDS ORDERED: Fentanyl BOLUS 250 ML IVPB PRN (21:05)
[2019-05-14] MEDS ORDERED: Lorazepam 2 MG/ML VIAL SLOW IVP PRN (21:05)
[2019-05-14] MEDS ORDERED: Morphine 2 MG/ML SYRINGE SLOW IVP PRN (21:05)
[2019-05-14] MEDS: fentaNYL Citrate/PF 2,000 MCG in Sodium Chloride 0.9% 60 ML IV SCH (21:16)
[2019-05-14] MEDS: Atorvastatin Calcium 40 MG TAB PO SCH (21:35)
[2019-05-15] MEDS: Propofol 1,000 MG/100 ML VIAL IV PRN ×4 (00:42→18:34)
[2019-05-15] MEDS: Clindamycin/D5W 900 MG in Premix Bag 1 BAG IVPB SCH ×4 (01:42→19:54)
[2019-05-15 04:26] LABS: ALT (SGPT) 8 U/L (8-55); AST (SGOT) 19 U/L (5-34); Albumin 2.6 g/dL (3.5-5.0); Alkaline Phosphatase 89 U/L (40-150); Anion Gap 11 mmol/L (10-20); BUN (Urea Nitrogen) 24 mg/dL (8.9-20.6); Bilirubin, Total 0.2 mg/dL (0.2-1.2); Calc. Creatinine Clearance 19 mL/min (70-130); Calcium 8.2 mg/dL (7.8-10.44); Carbon Dioxide 28 mmol/L (22-29); Chloride 102 mmol/L (98-107); Estimated GFR-MDRD 11; Globulin 1.9 g/dL (2.4-3.5); Glucose 119 mg/dL (70-105); Protein, Total 4.5 g/dL (6.0-8.3); Sodium 137 mmol/L (136-145)
[2019-05-15 04:35] LABS: Hemoglobin 5.9 g/dL (14.0-18.0); Mean Corpuscular HGB CONC 34.4 g/dL (32.0-36.0); Mean Corpuscular Hemoglobin 34.1 pg (27.0-31.0); Mean Corpuscular Volume 99.1 fL (78.0-98.0); Mean Platelet Volume 8.1 fL (7.4-10.4); Platelet Count 109 thou/uL (130-400); RBC Distribution Width 11.9 % (11.5-14.5); Red Blood Cell (RBC) Count 1.73 mill/uL (4.70-6.10); White Blood Cell (WBC) Count 3.3 thou/uL (4.8-10.8)
[2019-05-15 04:37] LABS: Fibrinogen 238 mg/dL (253-463); INR-International Normal Ratio 1.2; Prothrombin Time 15.1 SEC (12.0-14.7)
[2019-05-15 04:38] LABS: D-Dimer Test 1.67 *mcg/mL (0.27-0.43); PTT 30.8 SEC (22.9-36.1)
[2019-05-15 04:55] LABS: Band 1 % (5-11); FSP-Qualitative ABNORMAL (Normal); FSP-Semiquantitative >=5 & <20 mcg/mL (Less than 5); Lymphocytes 35 % (21-51); MDiff Complete? YES; Monocytes 10 % (0-10); Neutrophil 54 % (42-75); Platelet Morphology Comment Appears Decreased
[2019-05-15 04:57] LABS: Platelet Count 109 thou/uL (130-400)
[2019-05-15] MEDS: Sodium Chloride 0.9% 1,000 ML IV SCH ×2 (06:19→17:29)
[2019-05-15 07:08] LABS: Actual Bicarbonate (HCO3a) 26.6 mEq/L (22-28); Base Excess (BEa) 3.5 mEq/L (-2.0 to +3.0); CO2 Tension 32.9 mmHg (35.0-45.0); Carboxyhemoglobin (COHb) 1.9 gm% (0.0-3.0); Hemoglobin (Hb) 6.5 g/dL (14.0-18.0); O2 Tension (PaO2) 104.1 mmHg (80.0-100.0); Potassium - ABG Lab 4.03 mmol/L (3.70-5.30); Puncture Site RRA; pH, Arterial 7.53 (7.35-7.45)
[2019-05-15 07:09] LABS: ALV-art Gradient 68.675 (0-20)
--- NOTE | 2019-05-15 07:42 | CT ---
PRELIMINARY REPORT/[facility]/EMERGENCY AFTER HOURS PROCEDURE: EXAM: CT Head Without Contrast EXAM DATE/TIME: 05/15/2019 4:12 AM CLINICAL HISTORY: 44 years old, male; Condition or disease; Prior surgery; Surgery date: Post-operative (0-2 days); Pat ient HX: PT is S/P craniectomy due to epidural hematoma. TECHNIQUE: Imaging protocol: Computed tomography of the head without contrast. COMPARISON: CT Brain WO Con 05/14/2019 6:51 AM FINDINGS: Tubes, catheters and devices: Scalp drain in place. Brain: Small amount of encephalomalacia/gliosis in inferior right temporal lobe. Trace hyperdensity i n the periphery of the right temporal lobe (image 19, series 2) is either a trace of subarachnoid hem orrhage or artifact. No brain edema. Midline shift: No midline shift. Ventricles: Normal. No ventriculomegaly. Bones/joints: Large right-sided craniectomy. Sinuses: Visualized sinuses are unremarkable. No fluid levels. Mastoid air cells: Visualized mastoid air cells are well aerated. No mastoid effusion. Soft tissues: Large scalp hematoma. IMPRESSION: Trace hyperdensity in the periphery of the right temporal lobe (image 19, series 2) is either a trace of subarachnoid hemorrhage or artifact. Thank you for allowing us to participate in the care of your patient. Dictated and Authenticated by: Alberto Haile MD 05/15/2019 4:23 AM Central Time ([place] & [place]) FINAL REPORT EMERGENCY AFTER HOURS BRAIN CT WITHOUT IV CONTRAST: Date: 05/15/19 Time: 0413 hours COMPARISON: 05/14/19. FINDINGS/IMPRESSION: Marked improvement with removal of the right-sided subdural fluid collection and marked improvement i n mass effect and midline shift. Very tiny possible subarachnoid hemorrhagic focus in the right tempo ral lobe. Other findings as above. Report in agreement with preliminary report given on-call by [facility]. POS: [facility]
[2019-05-15] MEDS: hydrALAZINE 25 MG TAB PO SCH ×3 (08:12→19:58)
[2019-05-15] MEDS: Carvedilol 3.125 MG TAB PO SCH ×2 (08:12→19:58)
[2019-05-15] MEDS: Lisinopril 5 MG TAB PO SCH ×2 (08:13→19:59)
[2019-05-15] MEDS: Sevelamer Carbonate 800 MG TAB PO SCH ×2 (08:13→19:57)
--- NOTE | 2019-05-15 08:20 | RAD ---
Exam: CHEST 1 VIEW: HISTORY: Respiratory insufficiency COMPARISON: 10/31/2017. FINDINGS: NG tube and endotracheal tubes in position. Left subclavian catheter. Monitor leads overlie the chest . No confluent pneumonia, overt edema, pleural effusion or other acute process. IMPRESSION: No significant acute intrathoracic disease. Continued short-term follow-up. Transcribed Date/Time: 05/15/2019 9:24 AM
[2019-05-15] MEDS: Lacosamide 50 mg Tablet PO SCH ×2 (08:53→20:02)
[2019-05-15] MEDS ORDERED: EPOETIN ALFA-EPBX (ESRD) 10,000 UNIT/ML VIAL SC SCH (09:45)
--- NOTE | 2019-05-15 10:14 | PRG ---
DATE OF SERVICE: 05/15/2019 SERVICE: Renal Medicine. SUBJECTIVE: Mr. Ayala is a 44-year-old male with ESRD and followed up by the Renal Service for his maintenance hemodialysis. He underwent a heparin-free dialysis yesterday. Please note, he had a cranial flap/prosthetic flap placed, was complicated by the development of intracranial bleed, and subsequently, underwent a second craniotomy. The said bleeding was relieved. The patient is more awake today, but somewhat agitated. OBJECTIVE: VITAL SIGNS: Blood pressure is 194/58, heart rate 67, respiratory rate 14, pulse ox 100%. GENERAL: He is awake. Can follow commands, intubated, on ventilator support. SKIN: Adequate turgor. HEENT: He has pale conjunctivae. Anicteric sclerae. No neck mass. No carotid bruits. No JVD. CHEST: No deformities. LUNGS: Clear breath sounds. No wheezing. No crackles. HEART: Normal sinus rhythm. No murmur. No gallops. No rubs. ABDOMEN: Globular, soft, nontender. No masses. EXTREMITIES: No edema. No deformities. MEDICATIONS: Medications of May 15, 2019, were reviewed. LABORATORY DATA: Laboratories of May 15, 2019, white count 3.3, hemoglobin 5.9. Sodium 137, potassium 4, chloride 102, carbon dioxide 28, BUN 24, creatinine 5.83, AST 19, ALT 8. ASSESSMENT AND PLAN: 1. Hyperkalemia, resolved with hemodialysis. Most recent potassium is now 4. 2. End-stage renal disease, stable. We will continue current Friday, Friday, and Friday hemodialysis. Due to the recent surgery, we will hold off heparin. 3. Anemia. P.r.n. blood transfusion. [place] [address] units subcu weekly. 4. Status post brain surgery. Neurosurgery is following. The plan is probably to place back the scalp flap prosthesis Friday. 5. Agree with current management. Job ID: [id number]
[2019-05-15 11:02] LABS: Hemoglobin 7.4 g/dL (14.0-18.0)
--- NOTE | 2019-05-15 11:03 | PRG ---
DATE OF SERVICE: Mr. Ayala is now still recovering from removal of his bone plate and his epidural hematoma brought on by DIC. He has drifted back DIC based on his panel, however, not as severe as it was yesterday morning. We have given him 2 units of blood. He was dialyzed yesterday. I would like to give him a 6-pack of platelets tonight and more FFP and vitamin K with preparation of tomorrow morning to bring him back to surgery to replace his bone plate and re-closure. Job ID: [id number]
--- NOTE | 2019-05-15 11:10 | RAD ---
KUB: 05/15/2019 COMPARISON: 06/30/2004 HISTORY: Evaluate IVC filter. FINDINGS: There is an IVC filter overlying the right aspect of the L2 and L3 vertebral bodies. The kane wel gas pattern appears nonobstructed. There is a nasogastric tube extending into the left upper quadrant IMPRESSION: IVC filter as above.
--- NOTE | 2019-05-15 11:49 | PRG ---
DATE OF SERVICE: 05/15/2019 SUBJECTIVE: Mr. Ayala is a 44-year-old male. He has been seen by my associate, Dr. Wing. I am seeing in followup in the Critical Care Unit. He is mechanically ventilated. OBJECTIVE: VITAL SIGNS: He is afebrile. Heart rate 64, blood pressure 109/68. Intake and outputs, positive 3292. GENERAL: He is tentatively scheduled to have dialysis later today. LUNGS: Clear anteriorly. HEART: Regular rhythm. ABDOMEN: Soft without guarding, masses, or tenderness. EXTREMITIES: Without asymmetry or edema. He is currently having lower extremity Dopplers done. IMAGING STUDIES: Chest x-ray shows no infiltrates. LABORATORY DATA: White count is 3.3, hemoglobin is 5.9. He subsequently received 2 units of packed cells. Platelets 109,000. Sodium 137, potassium 4, chloride 102, bicarb 28, BUN 24, creatinine 5.83. IMPRESSION: 1. End-stage renal disease, on dialysis. 2. Acute respiratory failure. 3. Tentatively on schedule for placement of a custom implant after removal of the custom implant because of an epidural hematoma and subgaleal hematoma. I am told he is going back to the OR tomorrow. We will make no ventilator changes today. Continue to follow the other physicians caring for him. Other problems include hyperkalemia that resolved with hemodialysis, end-stage renal disease, anemia receiving 2 units of blood today. CRITICAL CARE TIME: 30 minutes. Addendum: Blood gas shows a pH of 7.53, CO2 of 32, pO2 of 104. His ventilatory rate has been decreased. Job ID: [id number] MTDD
--- NOTE | 2019-05-15 12:55 | ULT ---
BILATERAL LOWER EXTREMITY VENOUS DOPPLER ULTRASOUND: Date: 05/15/19 HISTORY: Impaired mobility, evaluate for deep venous thrombosis. TECHNIQUE: Multiplanar Walters scale sonographic imaging of the venous structures of bilateral lower extremities ob tained with color flow and spectral analysis. FINDINGS: Right common femoral vein, greater saphenous vein, profunda femoral vein, femoral vein, and popliteal vein appear patent. Right posterior tibial vein could not be visualized secondary to patient positio n. The common femoral vein on the left is only partially compressible. There is blood flow seen in this region. This suggests nonocclusive thrombus at the left common femoral vein. Profunda femoral vein, f emoral vein, popliteal vein, greater saphenous vein, and posterior tibial vein appear patent on the l eft. IMPRESSION: Findings suggesting nonocclusive deep venous thrombosis within left common femoral vein as the vessel is incompletely compressible in this region. Performing axle and frame mechanic reports that she relayed this information to the patient's covering nurse, Jeimy palomo, at the time of the study. CODE CR. POS: OFF
--- NOTE | 2019-05-15 15:36 | PRG ---
DATE OF SERVICE: 05/15/2019 SUBJECTIVE: The patient is seen and examined at the bedside. He is intubated and sedated. He is receiving 2 units of packed red blood cells this morning. He is getting prepared for surgery tomorrow morning by neurosurgeon. OBJECTIVE: VITAL SIGNS: Blood pressure is 103/60, pulse is 71, respiratory rate is 10, and pulse oximetry is 100% on the ventilator. He is orally intubated. NG tube is in place. LUNGS: Breath sounds somewhat diminished at both bases. No rales or crackles. No wheezing. HEART: S1 and S2 normal. No S3. No S4. ABDOMEN: Soft, nondistended. Bowel sounds present, sluggish. EXTREMITIES: No clubbing, cyanosis, or edema. NEUROLOGICAL: Postponed since he is sedated. LABORATORY DATA: Labs showed white count of 3.3, hemoglobin of 5.9, hematocrit 17.2, and platelet count is 109. INR is 1.2. PT is 15.1, APTT 30.8, fibrinogen 238, fibrin degradation product high. D-dimer is 1.67. ABGs showed pH of 7.53, pCO2 of 32.9, pO2 of 104.1, base excess 3.5. Normal electrolytes. BUN of 24, creatinine 5.83, glucose 119. Glycemia is ranging from 89 to 126. Total protein 4.5, albumin 2.6, and globulin 1.9. IMPRESSION: 1. Postoperative epidural hematoma, status post neurosurgical intervention with significant improvement on current CT and followup. 2. Respiratory failure, on the ventilator, managed per Pulmonary. 3. Anemia, status post transfusion of 2 units of packed red blood cells. 4. Hypertension per history. 5. Seizure disorder. 6. End-stage renal disease, on hemodialysis per Nephrology Service. 7. Possible left common femoral vein deep venous thrombosis, status post IVC filter placement. 8. Scalp infection, currently on clindamycin and levofloxacin. 9. Hyponatremia and hypochloremia, corrected with the hemodialysis. 10. Hyperkalemia, also corrected during a dialysis, managed by drum plater. PLAN: The patient is supposed to get a fresh frozen plasma after midnight to get prepared for his surgical intervention in the morning for replacement of his bone plate and re-closure. He will continue on mechanical ventilation. He will continue on clindamycin and levofloxacin. He will stay in the intensive care unit, and we will follow up with chest x-ray daily and lab work daily. Job ID: [id number]
[2019-05-15] MEDS ORDERED: Phytonadione 10 MG in Sodium Chloride 0.9% 50 ML IVPB SCH (16:00)
[2019-05-15] MEDS: Atorvastatin Calcium 40 MG TAB PO SCH (19:57)
[2019-05-15] MEDS: hydrALAZINE 20 MG/ML VIAL SLOW IVP PRN (23:20)
[2019-05-16] MEDS: Propofol 1,000 MG/100 ML VIAL IV PRN ×2 (01:24→22:42)
[2019-05-16] MEDS: Clindamycin/D5W 900 MG in Premix Bag 1 BAG IVPB SCH ×4 (01:24→19:42)
[2019-05-16] MEDS: fentaNYL Citrate/PF 2,000 MCG in Sodium Chloride 0.9% 60 ML IV SCH (03:45)
[2019-05-16 04:46] LABS: #Eosinphils 0.1 thou/uL (0.0-0.7); #Lymphocytes 1.3 thou/uL (1.20-3.40); #Monocytes 0.5 thou/uL (0.11-0.59); #Neutrophils 2.7 thou/uL (1.40-6.50); %Basophils 0.2 % (0.0-1.0); %Eosinophils 1.3 % (0.0-10.0); %Lymphocytes 28.3 % (21.0-51.0); %Monocytes 11.6 % (0.0-10.0); %Neutrophils 58.5 % (42.0-75.0); Hemoglobin 7.3 g/dL (14.0-18.0); Mean Corpuscular Hemoglobin 33.8 pg (27.0-31.0); Mean Corpuscular Volume 99.4 fL (78.0-98.0); Mean Platelet Volume 7.9 fL (7.4-10.4); Platelet Count 126 thou/uL (130-400); RBC Distribution Width 12.8 % (11.5-14.5); Red Blood Cell (RBC) Count 2.16 mill/uL (4.70-6.10); White Blood Cell (WBC) Count 4.7 thou/uL (4.8-10.8)
[2019-05-16 04:48] LABS: Anion Gap 13 mmol/L (10-20); BUN (Urea Nitrogen) 31 mg/dL (8.9-20.6); Calc. Creatinine Clearance 15 mL/min (70-130); Calcium 8.5 mg/dL (7.8-10.44); Carbon Dioxide 26 mmol/L (22-29); Chloride 103 mmol/L (98-107); Estimated GFR-MDRD 8; Glucose 79 mg/dL (70-105); Potassium 4.8 mmol/L (3.5-5.1); Sodium 137 mmol/L (136-145)
[2019-05-16 04:49] LABS: FSP-Qualitative Normal (Normal)
[2019-05-16 04:58] LABS: Fibrinogen 336 mg/dL (253-463)
[2019-05-16 05:00] LABS: D-Dimer Test 0.85 *mcg/mL (0.27-0.43); PTT 28.4 SEC (22.9-36.1); Prothrombin Time 13.2 SEC (12.0-14.7)
[2019-05-16 05:15] LABS: Platelet Count 126 thou/uL (130-400)
[2019-05-16] MEDS ORDERED: Sodium Chloride 0.9% 10 ML ONE (07:31)
[2019-05-16] MEDS ORDERED: Lidocaine 0.5%/Epinephrine 1:200,000 50 ml Vial ONE (07:31)
[2019-05-16] MEDS ORDERED: Bacitracin Zinc Ointment 30 gm TUBE ONE (07:31)
[2019-05-16] MEDS ORDERED: Thrombin 5000 UNITS/5 ML VIAL ONE (07:31)
[2019-05-16] MEDS ORDERED: Vecuronium 10 MG VIAL ONE (07:39)
[2019-05-16] MEDS ORDERED: Rocuronium Bromide 10 MG/ML (10ML VIAL) ONE (07:39)
[2019-05-16] MEDS ORDERED: PHENYLEPHRINE-NS 100 MCG/ML 10 ML SYRINGE ONE (07:39)
[2019-05-16 07:40] LABS: Actual Bicarbonate (HCO3a) 24.9 mEq/L (22-28); Base Excess (BEa) -0.8 mEq/L (-2.0 to +3.0); CO2 Tension 46.5 mmHg (35.0-45.0); Calcium, Ionized 1.13 mmol/L (1.12-1.30); Carboxyhemoglobin (COHb) 1.1 gm% (0.0-3.0); Hemoglobin (Hb) 7.7 g/dL (14.0-18.0); O2 Tension (PaO2) 106.3 mmHg (80.0-100.0); pH, Arterial 7.35 (7.35-7.45)
[2019-05-16 07:41] LABS: ALV-art Gradient 49.475 (0-20); Puncture Site RB
[2019-05-16] MEDS ORDERED: Fentanyl 100 MCG/2 ML VIAL ONE ×2 (07:54→10:03)
[2019-05-16] MEDS: Sodium Chloride 0.9% 1,000 ML IV SCH ×2 (08:30→19:43)
--- NOTE | 2019-05-16 09:52 | RAD ---
FRONTAL RADIOGRAPH CHEST: Date: 05/16/19 COMPARISON: 05/15/19. HISTORY: Ventilated patient. FINDINGS: Mild hazy density noted in the perihilar regions. Endotracheal tube, nasogastric tube, and left-sided vascular catheter in proper position. No focal consolidation. IMPRESSION: Mild hazy density in the perihilar regions. Lines and tubes as detailed above. POS: OFF
[2019-05-16] MEDS ORDERED: PROPOFOL 20 ML ONE (11:05)
--- NOTE | 2019-05-16 11:13 | PRG ---
DATE OF SERVICE: 05/16/2019 Mr. Ayala's DIC panel is now normalized. We are planning to replace his bone flap today for his synthetic plate today. We have extensively discussed with the family. He remains intubated, but awake and following commands. We will have to closely watch him postoperatively for a return to DIC. He is to be dialyzed today by report. Job ID: [id number]
--- NOTE | 2019-05-16 11:18 | OP ---
DATE OF PROCEDURE: 05/16/2019 LOCATION: OR 12. CROP DUSTER: Wagner Arriaga PA-C. PREPROCEDURE DIAGNOSIS: Need for christianity of cosmesis. POSTPROCEDURE DIAGNOSIS: Need for christianity of cosmesis. PROCEDURE PERFORMED: Replacement of our custom right skull implant. DESCRIPTION OF PROCEDURE: After informed consent was obtained from the patient's family, he was brought to the OR. Proper patient, pause, and identification were carried out. The prior right-sided scalp was identified along with the drains. This area was sterilely cleansed, prepared, and draped. Proper patient, pause, and identification made it clearly confirmed normalization of his DIC panel, which should lead to his reason for having to be brought back to the operating room for epidural hematoma as he had gone into DIC. Now that we had corrected him and his wound was sterilely cleansed, prepared, and draped. The sutures were removed. The drains were removed. The wound was opened. Copious irrigation occurred. The hemostasis was excellent. The bone plate was replaced with titanium plates and screws. Two epidural drains were placed along with two subgaleal drains. The wound was closed in anatomic layers again with meticulous hemostasis as it had been done in the last surgery. The patient was kept intubated and brought up to the ICU. Job ID: [id number]
--- NOTE | 2019-05-16 11:54 | CT ---
Head CT without contrast 05/16/2019: COMPARISON: 05/15/2019 HISTORY: Evaluate following surgery, post operative right cranial bone flap replacement TECHNIQUE: Axial CT imaging at 5 mm intervals from vertex through skull base without contrast FINDINGS: There has been interval placement of a calvarial flap on the right. There are associated cu taneous tisha present. There are drainage catheters deep and superficial to the calvarial flap. There is mild associated dural thickening and possible small volume adjacent subdural blood products within the right frontal region. No midline shift or mass effect. There is encephalomalacia within the right temporal lobe. Diffuse scalp swelling noted. Imaged paranasal sinuses and mastoid air cells grossly unremarkable. IMPRESSION: Post operative findings as detailed above. No intraparenchymal hemorrhage, midline shift or mass effect.
[2019-05-16] MEDS: Carvedilol 3.125 MG TAB PO SCH ×2 (12:14→19:44)
[2019-05-16] MEDS: hydrALAZINE 25 MG TAB PO SCH ×3 (12:15→19:44)
[2019-05-16] MEDS: Lisinopril 5 MG TAB PO SCH ×2 (12:17→19:45)
[2019-05-16] MEDS: Sevelamer Carbonate 800 MG TAB PO SCH ×2 (12:17→19:44)
[2019-05-16] MEDS: niCARdipine 25 MG in Sodium Chloride 0.9% 250 ML 240 ML IVPB SCH ×2 (13:26→19:55)
[2019-05-16] MEDS: Lacosamide 50 mg Tablet PO SCH ×2 (13:27→19:46)
--- NOTE | 2019-05-16 16:09 | PRG ---
DATE OF SERVICE: 05/16/2019 SUBJECTIVE: Jamie went to the OR today to have his skull implant replanted. OBJECTIVE: VITAL SIGNS: Afterwards, blood pressure 143/61, heart rate 78, respiratory rate was in the teens, he is sedated still from the operating room. LUNGS: Clear anteriorly. HEART: Regular rhythm. ABDOMEN: Soft. EXTREMITIES: Without edema. LABORATORY DATA: White count 4.7, hemoglobin 7.3, platelets 126. Electrolytes are normal. Creatinine 7.58 today, potassium is 4.8. Blood gas this morning; pH 7.35, pCO2 of 46, pO2 of 106. IMPRESSION: 1. End-stage renal disease. 2. Status post emergency evacuation of a large hematoma. 3. Respiratory failure. The weaning process will likely begin tomorrow if there is no further surgery is anticipated. CT scan was done today showing just postoperative findings. No parenchymal brain hemorrhage was seen. No midline shift was seen. We will continue to follow the other physicians caring for him. CRITICAL CARE TIME: 30 minutes. Job ID: [id number]
--- NOTE | 2019-05-16 16:38 | PDOC.HOSPP ---
- Subjective Encounter Date: 05/16/19 Encounter Time: 16:37 Subjective: sedated and intubated - Objective Vital Signs & Weight: Vital Signs (12 hours) Temp Pulse Resp BP 05/16/19 16:00 10 L 05/16/19 14:27 78 143/61 H 05/16/19 14:15 77 142/60 H 05/16/19 14:00 10 L 05/16/19 13:00 98.6 F 05/16/19 12:17 94 181/102 H 05/16/19 12:15 94 181/102 H 05/16/19 12:00 98.8 F 10 L 05/16/19 11:35 94 181/102 H 05/16/19 07:24 78 141/66 H 05/16/19 06:00 10 L Weight Admit Weight 185 lb 3.013 oz Weight 185 lb 3.013 oz Most Recent Monitor Data Heart Rate from ECG 79 NIBP 108/64 NIBP BP-Mean 78 Respiration from ECG 10 SpO2 100 I&O: 05/15/19 05/16/19 05/17/19 06:59 06:59 06:59 Intake Total 3422 4050 Output Total 130 85 60 Balance 3292 3965 -60 Result Diagrams: 05/16/19 03:14 05/16/19 03:14 Additional Labs: Accuchecks 05/16/19 05/15/19 14:22 22:21 POC Glucose 69 L 88 Hospitalist ROS - Medication Medications: Active Medications Generic Name Dose Route Start Last Admin Trade Name Freq PRN Reason Stop Dose Admin Acetaminophen 650 mg 05/13/19 12:46 05/13/19 19:35 Tylenol PO 650 mg Q4H PRN Administration Headache/Fever/Mild Pain (1-3) Atorvastatin Calcium 40 mg 05/13/19 21:00 05/15/19 19:57 Lipitor PO 40 mg HS SHANDA Administration Carvedilol 3.125 mg 05/13/19 21:00 05/16/19 12:14 Coreg PO Not Given BID SHANDA Cholecalciferol 2,000 units 05/14/19 09:00 05/16/19 12:15 Vitamin D3 PO Not Given DAILY SHANDA Dextrose/Water 25 gm 05/13/19 17:27 05/16/19 12:29 Dextrose 50% SLOW IVP 12.5 gm PRN PRN Administration Hypoglycemia Docusate Sodium 100 mg 05/13/19 12:46 05/14/19 21:32 Colace PO 100 mg BIDPRN PRN Administration Constipation Epoetin Murali-epbx 10,000 unit 05/15/19 09:45 05/15/19 12:34 Retacrit SC 10,000 unit Q7D SHANDA Administration Hydralazine HCl 50 mg 05/13/19 15:00 05/16/19 14:27 Apresoline PO Not Given TID SHANDA Hydralazine HCl 10 mg 05/14/19 08:33 05/15/19 23:20 Apresoline SLOW IVP 10 mg Q4H PRN Administration SBP >140 Clindamycin Phosphate/Dextrose 50 mls @ 100 mls/hr 05/13/19 14:00 05/16/19 14 :24 900 mg/ Device IVPB 50 mls 0200,0800,1400,2000 SHANDA Administration Sodium Chloride 1,000 mls @ 75 mls/hr 05/13/19 12:45 05/16/19 08:30 Normal Saline 0.9% IV Not Given .[id number] SHANDA Levetiracetam 500 mg/ Device 100 mls @ 200 mls/hr 05/14/19 09:00 05/16/19 13: 26 IVPB Not Given BID SHANDA Levofloxacin 250 mg/ Device 50 mls @ 100 mls/hr 05/16/19 09:00 05/16/19 12:16 IVPB Not Given Q2D@0900 SHANDA Nicardipine HCl 25 mg/ Sodium 250 mls @ 0 mls/hr 05/14/19 14:30 05/16/19 13: 26 Chloride IVPB 250 mls INF SHANDA Administration Protocol Fentanyl Citrate 2,000 mcg/ 100 mls @ 0 mls/hr 05/14/19 21:05 05/16/19 03:45 Sodium Chloride IV 06/13/19 21:05 100 mls INF SHANDA Administration Protocol Per Protocol Lacosamide 50 mg 05/13/19 21:00 05/16/19 13:27 Vimpat PO Not Given BID SHANDA Lisinopril 5 mg 05/13/19 21:00 05/16/19 12:17 Zestril PO Not Given BID [facility] Morphine Sulfate 2 mg 05/14/19 21:05 05/14/19 21:36 Morphine SLOW IVP 06/13/19 21:05 2 mg Q1H PRN Administration BREAKTHROUGH PAIN/Agitation Ondansetron HCl 4 mg 05/13/19 12:46 05/14/19 01:37 Zofran IVP 4 mg Q8H PRN Administration Nausea/Vomiting Phenytoin Sodium 400 mg 05/13/19 21:00 05/15/19 19:58 Dilantin Er PO 400 mg HS SHANDA Administration Promethazine HCl 12.5 mg 05/13/19 22:45 05/13/19 22:50 Phenergan SLOW IVP 12.5 mg Q6H PRN Administration Nausea Propofol 1,000 mg 05/14/19 12:56 05/16/19 01:24 Diprivan IV 06/13/19 12:56 1,000 mg INF PRN Administration TO ACHIEVE GOAL RASS Protocol Scopolamine 1.5 mg 05/14/19 03:00 05/14/19 03:13 Transderm Scop TD 1.5 mg Q3D SHANDA Administration Sertraline HCl 100 mg 05/14/19 09:00 05/16/19 12:17 Zoloft PO Not Given QAM SHANDA Sevelamer Carbonate 1,600 mg 05/13/19 21:00 05/16/19 12:17 Renvela PO Not Given BID SHANDA - Exam General - other findings: sedated and intubated Eye: PERRL, anicteric sclera ENT - other findings: s/p scalp flap reconstruction, scalp covered in dressing Neck: supple, symmetric Heart: RRR, no murmur, no gallops Respiratory - other findings: sedated and intubated Gastrointestinal: soft, non-tender, non-distended Extremities: no cyanosis, no clubbing, 1+ LE edema Neurological - other findings: sedated and intubated Hosp A/P (1) Acute osteomyelitis of cranium Code(s): M86.18 - OTHER ACUTE OSTEOMYELITIS, OTHER SITE Status: Acute Plan: scalp infection treated with abx, flap removal. complications of hematoma, infection, DIC. Redo of scalp flap, continued sedation and intubation (2) Demand ischemia of myocardium Code(s): I24.8 - OTHER FORMS OF ACUTE ISCHEMIC HEART DISEASE Status: Acute (3) Hyperkalemia Code(s): E87.5 - HYPERKALEMIA Status: Acute Plan: addressed with dialysis (4) Seizure Code(s): R56.9 - UNSPECIFIED CONVULSIONS Status: Acute Plan: keppra (5) Volume overload Code(s): E87.70 - FLUID OVERLOAD, UNSPECIFIED Status: Acute (6) DM type 2 (diabetes mellitus, type 2) Status: Chronic Qualifiers: Diabetes mellitus turf farmer insulin use: without turf farmer use Diabetes mellitus complication status: with kidney complications Diabetes mellitus complication detail: with chronic kidney disease Chronic kidney disease stage : on chronic dialysis Qualified Code(s): E11.22 - Type 2 diabetes mellitus with diabetic chronic kidney disease; N18.6 - End stage renal disease; Z99.2 - Dependence on renal dialysis (7) ESRD (end stage renal disease) Code(s): N18.6 - END STAGE RENAL DISEASE Status: Chronic Plan: continue dialysis (8) Sepsis Code(s): A41.9 - SEPSIS, UNSPECIFIED ORGANISM Status: Ruled-out Qualifiers: Sepsis type: sepsis due to unspecified organism Qualified Code(s): A41.9 - Sepsis, unspecified organism Plan: continue abx
[2019-05-16 18:04] LABS: Fibrinogen 434 mg/dL (253-463)
[2019-05-16 18:05] LABS: PTT 27.2 SEC (22.9-36.1); Prothrombin Time 13.6 SEC (12.0-14.7)
[2019-05-16 18:06] LABS: D-Dimer Test 1.24 *mcg/mL (0.27-0.43)
[2019-05-16 18:23] LABS: Platelet Count 144 thou/uL (130-400)
[2019-05-16 18:47] LABS: FSP-Qualitative ABNORMAL (Normal); FSP-Semiquantitative >=5 & <20 mcg/mL (Less than 5)
[2019-05-16] MEDS: Atorvastatin Calcium 40 MG TAB PO SCH (19:44)
[2019-05-17] MEDS: Scopolamine 1.5 mg/72 hour Patch TD SCH (01:57)
[2019-05-17] MEDS: Clindamycin/D5W 900 MG in Premix Bag 1 BAG IVPB SCH ×4 (01:57→20:56)
[2019-05-17] MEDS: niCARdipine 25 MG in Sodium Chloride 0.9% 250 ML 240 ML IVPB SCH ×2 (01:59→11:44)
[2019-05-17] MEDS: fentaNYL Citrate/PF 2,000 MCG in Sodium Chloride 0.9% 60 ML IV SCH (03:19)
[2019-05-17] MEDS: Propofol 1,000 MG/100 ML VIAL IV PRN ×2 (04:36→09:03)
[2019-05-17 05:16] LABS: Fibrinogen 410 mg/dL (253-463); INR-International Normal Ratio 1.1; PTT 29.9 SEC (22.9-36.1); Prothrombin Time 13.9 SEC (12.0-14.7)
[2019-05-17 05:17] LABS: D-Dimer Test 1.18 *mcg/mL (0.27-0.43)
[2019-05-17 05:44] LABS: FSP-Qualitative ABNORMAL (Normal)
[2019-05-17 05:45] LABS: FSP-Semiquantitative >=5 & <20 mcg/mL (Less than 5)
[2019-05-17 05:47] LABS: Platelet Count 126 thou/uL (130-400)
--- NOTE | 2019-05-17 07:34 | CT ---
PRELIMINARY REPORT/[facility]/EMERGENCY AFTER HOURS PROCEDURE: EXAM: CT Head Without Contrast EXAM DATE/TIME: 05/17/2019 3:50 AM CLINICAL HISTORY: 44 years old, male; Condition or disease; Other: CVA; Patient HX: F/u RT bone flap replacement TECHNIQUE: Imaging protocol: Computed tomography of the head without contrast. COMPARISON: CT Brain WO Con 05/15/2019 4:12 AM FINDINGS: Brain: Right temporal encephalomalacia/gliosis. No brain edema. No intracranial hemorrhage. Ventricles: Normal. No ventriculomegaly. Bones/joints: Right-sided craniectomy with prosthetic skull component. Scalp drain. No fluidcollectio n. Sinuses: Visualized sinuses are unremarkable. No fluid levels. Mastoid air cells: Visualized mastoid air cells are well aerated. Soft tissues: See Bones/joints Finding. IMPRESSION: 1. No acute brain findings. 2. Right-sided craniectomy with prosthetic skull component. Scalp drain. No fluid collection. Thank you for allowing us to participate in the care of your patient. Dictated and Authenticated by: Alberto Haile MD 05/17/2019 4:05 AM Central Time ([place] & [place]) FINAL REPORT BRAIN CT WITHOUT IV CONTRAST: EMERGENT AFTER HOURS EXAM TIME: 3:51 a.m. DATE: 05/17/2019. Status post right-sided craniectomy with prosthetic skull cap and epidural drain. No significant zita nge from 05/16/2019. No new mass or hemorrhage. POS: [facility]
[2019-05-17 08:59] LABS: #Eosinphils 0.1 thou/uL (0.0-0.7); #Lymphocytes 0.9 thou/uL (1.20-3.40); #Monocytes 0.4 thou/uL (0.11-0.59); #Neutrophils 3.7 thou/uL (1.40-6.50); %Basophils 0.2 % (0.0-1.0); %Eosinophils 1.5 % (0.0-10.0); %Lymphocytes 17.7 % (21.0-51.0); %Monocytes 8.4 % (0.0-10.0); %Neutrophils 72.2 % (42.0-75.0); Hemoglobin 7.2 g/dL (14.0-18.0); Mean Corpuscular HGB CONC 34.8 g/dL (32.0-36.0); Mean Corpuscular Hemoglobin 34.1 pg (27.0-31.0); Mean Corpuscular Volume 97.9 fL (78.0-98.0); Mean Platelet Volume 7.7 fL (7.4-10.4); Platelet Count 130 thou/uL (130-400); RBC Distribution Width 12.2 % (11.5-14.5); Red Blood Cell (RBC) Count 2.12 mill/uL (4.70-6.10); White Blood Cell (WBC) Count 5.2 thou/uL (4.8-10.8)
[2019-05-17] MEDS: hydrALAZINE 25 MG TAB PO SCH ×3 (09:03→21:27)
[2019-05-17] MEDS: Sevelamer Carbonate 800 MG TAB PO SCH ×2 (09:04→21:27)
[2019-05-17] MEDS: Lisinopril 5 MG TAB PO SCH ×2 (09:04→21:26)
[2019-05-17] MEDS: Carvedilol 3.125 MG TAB PO SCH ×2 (09:04→21:26)
[2019-05-17 09:13] LABS: Anion Gap 13 mmol/L (10-20); BUN (Urea Nitrogen) 22 mg/dL (8.9-20.6); Calc. Creatinine Clearance 16 mL/min (70-130); Calcium 8.2 mg/dL (7.8-10.44); Carbon Dioxide 23 mmol/L (22-29); Chloride 104 mmol/L (98-107); Estimated GFR-MDRD 8; Glucose 97 mg/dL (70-105); Sodium 136 mmol/L (136-145)
--- NOTE | 2019-05-17 09:27 | RAD ---
CHEST 1 VIEW: Date: 05/17/19 HISTORY: Respiratory insufficiency. COMPARISON: 05/16/19. FINDINGS: Stable life support tubes. No significant acute intrathoracic disease. Mild stable congestion. IMPRESSION: Stable findings. No new process. POS: [facility]
--- NOTE | 2019-05-17 10:48 | PRG ---
DATE OF SERVICE: 05/17/2019 Mr. Ayala is postoperative day 2, following replacement of his bone flap. His drain output has been approximately 20 mL out of all the drains. A head CT, both yesterday and today postoperatively demonstrates satisfactory appearance. He is being dialyzed. Now I should note that, he has gone back into some appearance of DIC, but certainly not consistent with what it was before on the night of his epidural hematoma. We will continue to watch him and he will be extubated. He does open his eyes and follow commands. He does well today. We will get him to the floor tomorrow. Job ID: [id number]
--- NOTE | 2019-05-17 11:14 | PRG ---
DATE OF SERVICE: 05/17/2019 SUBJECTIVE: Mr. Ayala is a 44-year-old male, status post replacement of his right skull implant, and we are following him up for his maintenance hemodialysis. He did receive a 2-hour hemodialysis yesterday for volume overload. He is currently undergoing hemodialysis. He was noted to be still anemic. For that reason, we are giving him 1 unit packed RBC. We are currently using no heparin with dialysis. OBJECTIVE: VITAL SIGNS: Blood pressure is noted at 152/81 with a heart rate of 80, respiratory rate is 12. GENERAL: Noted to be awake and agitated. He can follow simple commands. HEENT: He has slightly pale conjunctivae. Anicteric sclerae. NECK: No neck mass. No carotid bruits. No JVD. CHEST: No deformities. LUNGS: Decreased breath sounds. HEART: Tachycardic. No murmur. No gallops. No rubs. ABDOMEN: Globular, soft, nontender. No masses. EXTREMITIES: Trace edema. MEDICATIONS: Medications of May 17, 2019, were reviewed. LABORATORY DATA: Laboratories of May 17, 2019; white count 5.2, hemoglobin 7.2. Sodium 136, potassium 4, chloride 104, carbon dioxide 23, BUN 22, creatinine 7.29, glucose 97, calcium 8.2. ASSESSMENT AND PLAN: 1. End-stage renal disease, stable. We will continue current heparin-free hemodialysis. Fluid removal only as tolerated by the patient. 2. Anemia. Continuing weekly Epogen. We will receive 1 unit packed RBC. 3. Status post replacement of custom right skull implant-stable. Doing well. 4. Neurosurgery is following. 5. Agree with current management. Job ID: [id number]
[2019-05-17] MEDS: Lacosamide 50 mg Tablet PO SCH ×2 (11:45→23:34)
[2019-05-17] MEDS: Sodium Chloride 0.9% 1,000 ML IV SCH (11:46)
[2019-05-17] MEDS ORDERED: DC Sedation Protocol FS ONE (12:35)
--- NOTE | 2019-05-17 12:52 | PRG ---
DATE OF SERVICE: 05/17/2019 TIME SPENT: 35 minutes of critical care time. SUBJECTIVE: The patient remains intubated on mechanical ventilation, is currently receiving hemodialysis. OBJECTIVE: VITAL SIGNS: His temperature is 99.2, pulse 94, and blood pressure 123/71. A 24-hour intake 2785, output 135. HEENT: Opens eyes, looks around. NECK: No adenopathy or JVD. LUNGS: Clear anteriorly. CARDIAC: S1 and S2. Regular. ABDOMEN: Soft and nontender. EXTREMITIES: No edema. NEUROLOGICAL: He is weaker on the right side compared to left, but does follow commands. LABORATORY DATA: White blood cell count 5.2, hemoglobin 7.2, hematocrit 20.8, and platelet count 130. INR 1.1, PTT 29.9. Sodium of 136, potassium 4, chloride 104, CO2 of 23, BUN 22, creatinine 7.2, and glucose 97. ASSESSMENT: 1. End-stage renal disease. 2. Status post evacuation of a large intracranial hematoma. 3. Respiratory failure, requiring mechanical ventilation. PLAN: He can probably be extubated if he looks okay after dialysis today. We will follow. Job ID: [id number]
[2019-05-17] MEDS: hydrALAZINE 20 MG/ML VIAL SLOW IVP PRN ×3 (13:31→23:42)
[2019-05-17] MEDS: Acetaminophen 325 MG TAB PO PRN (15:50)
--- NOTE | 2019-05-17 16:47 | PDOC.HOSPP ---
- Subjective Encounter Date: 05/17/19 Encounter Time: 16:46 Subjective: sedated and intubated - Objective Vital Signs & Weight: Vital Signs (12 hours) Temp Pulse Resp BP Pulse Ox 05/17/19 13:37 99 05/17/19 13:31 114 H 174/64 H 05/17/19 12:00 18 05/17/19 11:00 99.2 F 05/17/19 10:38 94 125/50 L 05/17/19 10:00 99.3 F 10 L 05/17/19 09:04 108 H 152/61 H 05/17/19 09:03 80 130/52 L 05/17/19 08:00 99.0 F 10 L 05/17/19 07:47 100 05/17/19 07:35 80 130/52 L 05/17/19 06:00 10 L Weight Admit Weight 185 lb 3.013 oz Weight 194 lb 10.691 oz Most Recent Monitor Data Heart Rate from ECG 121 NIBP 86/52 NIBP BP-Mean 63 Respiration from ECG 16 SpO2 99 I&O: 05/16/19 05/17/19 05/18/19 06:59 06:59 06:59 Intake Total 4050 2785 1287 Output Total 85 135 0 Balance 3965 2650 1287 Result Diagrams: 05/17/19 08:43 05/17/19 08:43 Additional Labs: Accuchecks 05/17/19 05/17/19 05/16/19 10:58 04:36 22:15 POC Glucose 98 105 110 Hospitalist ROS - Medication Medications: Active Medications Generic Name Dose Route Start Last Admin Trade Name Chase PRN Reason Stop Dose Admin Acetaminophen 650 mg 05/13/19 12:46 05/13/19 19:35 Tylenol PO 650 mg Q4H PRN Administration Headache/Fever/Mild Pain (1-3) Atorvastatin Calcium 40 mg 05/13/19 21:00 05/16/19 19:44 Lipitor PO 40 mg HS SHANDA Administration Carvedilol 3.125 mg 05/13/19 21:00 05/17/19 09:04 Coreg PO 3.125 mg BID SHANDA Administration Cholecalciferol 2,000 units 05/14/19 09:00 05/17/19 11:42 Vitamin D3 PO Not Given DAILY [facility] Dextrose/Water 25 gm 05/13/19 17:27 05/16/19 12:29 Dextrose 50% SLOW IVP 12.5 gm PRN PRN Administration Hypoglycemia Docusate Sodium 100 mg 05/13/19 12:46 05/14/19 21:32 Colace PO 100 mg BIDPRN PRN Administration Constipation Epoetin Murali-epbx 10,000 unit 05/15/19 09:45 05/15/19 12:34 Retacrit SC 10,000 unit Q7D SHANDA Administration Hydralazine HCl 50 mg 05/13/19 15:00 05/17/19 09:03 Apresoline PO 50 mg TID SHANDA Administration Hydralazine HCl 10 mg 05/14/19 08:33 05/15/19 23:20 Apresoline SLOW IVP 10 mg Q4H PRN Administration SBP >140 Hydralazine HCl 10 mg 05/17/19 13:11 05/17/19 13:31 Apresoline SLOW IVP 10 mg Q15MIN PRN Administration HYPERTENSION Clindamycin Phosphate/Dextrose 50 mls @ 100 mls/hr 05/13/19 14:00 05/17/19 09 :03 900 mg/ Device IVPB 50 mls 0200,0800,1400,2000 SHANDA Administration Sodium Chloride 1,000 mls @ 75 mls/hr 05/13/19 12:45 05/17/19 11:46 Normal Saline 0.9% IV Not Given .[id number] SHANDA Levetiracetam 500 mg/ Device 100 mls @ 200 mls/hr 05/14/19 09:00 05/17/19 11: 45 IVPB 100 mls BID SHANDA Administration Levofloxacin 250 mg/ Device 50 mls @ 100 mls/hr 05/16/19 09:00 05/16/19 12:16 IVPB Not Given Q2D@0900 SHANDA Lacosamide 50 mg 05/13/19 21:00 05/17/19 11:45 Vimpat PO 50 mg BID SHANDA Administration Lisinopril 5 mg 05/13/19 21:00 05/17/19 09:04 Zestril PO 5 mg BID SHANDA Administration Ondansetron HCl 4 mg 05/13/19 12:46 05/14/19 01:37 Zofran IVP 4 mg Q8H PRN Administration Nausea/Vomiting Phenytoin Sodium 400 mg 05/13/19 21:00 05/16/19 19:44 Dilantin Er PO 400 mg HS SHANDA Administration Promethazine HCl 12.5 mg 05/13/19 22:45 05/13/19 22:50 Phenergan SLOW IVP 12.5 mg Q6H PRN Administration Nausea Scopolamine 1.5 mg 05/14/19 03:00 05/17/19 01:57 Transderm Scop TD 1.5 mg Q3D SHANDA Administration Sertraline HCl 100 mg 05/14/19 09:00 05/17/19 09:03 Zoloft PO 100 mg QAM SHANDA Administration Sevelamer Carbonate 1,600 mg 05/13/19 21:00 05/17/19 09:04 Renvela PO 1,600 mg BID SHANDA Administration - Exam General - other findings: sedated and intubated ENT - other findings: s/p scalp flap covered in dressing Neck: supple, symmetric, no JVD Heart: RRR, no murmur, no gallops Respiratory: CTAB, no wheezes, no rales Gastrointestinal: soft, non-tender, non-distended Extremities: no cyanosis, no clubbing, 1+ LE edema Skin - other findings: heel ulcers Neurological - other findings: sedated and intubated Hosp A/P (1) Acute osteomyelitis of cranium Code(s): M86.18 - OTHER ACUTE OSTEOMYELITIS, OTHER SITE Status: Acute (2) Demand ischemia of myocardium Code(s): I24.8 - OTHER FORMS OF ACUTE ISCHEMIC HEART DISEASE Status: Acute (3) Hyperkalemia Code(s): E87.5 - HYPERKALEMIA Status: Acute (4) Seizure Code(s): R56.9 - UNSPECIFIED CONVULSIONS Status: Acute (5) Volume overload Code(s): E87.70 - FLUID OVERLOAD, UNSPECIFIED Status: Acute (6) DM type 2 (diabetes mellitus, type 2) Status: Chronic Qualifiers: Diabetes mellitus custodial insulin use: without termite control representative use Diabetes mellitus complication status: with kidney complications Diabetes mellitus complication detail: with chronic kidney disease Chronic kidney disease stage : on chronic dialysis Qualified Code(s): E11.22 - Type 2 diabetes mellitus with diabetic chronic kidney disease; N18.6 - End stage renal disease; Z99.2 - Dependence on renal dialysis (7) ESRD (end stage renal disease) Code(s): N18.6 - END STAGE RENAL DISEASE Status: Chronic - Plan scalp infection treated with abx, flap removal. complications of hematoma, infection, DIC. Redo of scalp flap, continued sedation and intubation IV abx Dialysis for ESRD Nutrition: Tube feeds Diabetes: Insulin Seizures: Keppra
[2019-05-17] MEDS ORDERED: Loperamide HCl 2 MG CAP PO SCH (17:00)
[2019-05-17] MEDS: Acetaminophen 500 MG TAB PO SCH ×2 (18:14→23:29)
[2019-05-17] MEDS: Ondansetron PF 4 MG/2 ML Vial IVP PRN (18:44)
[2019-05-17] MEDS: Promethazine HCl 25 MG/ML VIAL SLOW IVP PRN (19:41)
[2019-05-17] MEDS: niCARdipine 50 MG in Sodium Chloride 0.9% 250 ML 230 ML IVPB SCH (20:07)
[2019-05-17] MEDS: Atorvastatin Calcium 40 MG TAB PO SCH (21:26)
[2019-05-18] MEDS: niCARdipine 50 MG in Sodium Chloride 0.9% 250 ML 230 ML IVPB SCH ×2 (02:00→22:51)
[2019-05-18] MEDS: Sodium Chloride 0.9% 1,000 ML IV SCH ×2 (02:31→13:27)
[2019-05-18] MEDS: Clindamycin/D5W 900 MG in Premix Bag 1 BAG IVPB SCH ×4 (02:31→20:57)
[2019-05-18] MEDS: Acetaminophen 500 MG TAB PO SCH ×2 (05:42→09:15)
[2019-05-18 07:49] LABS: #Lymphocytes 0.7 thou/uL (1.20-3.40); #Monocytes 0.6 thou/uL (0.11-0.59); #Neutrophils 4.6 thou/uL (1.40-6.50); %Basophils 0.4 % (0.0-1.0); %Eosinophils 0.5 % (0.0-10.0); %Lymphocytes 11.8 % (21.0-51.0); %Monocytes 9.7 % (0.0-10.0); %Neutrophils 77.5 % (42.0-75.0); Hemoglobin 8.6 g/dL (14.0-18.0); Mean Corpuscular HGB CONC 34.2 g/dL (32.0-36.0); Mean Corpuscular Hemoglobin 32.3 pg (27.0-31.0); Mean Corpuscular Volume 94.5 fL (78.0-98.0); Mean Platelet Volume 7.1 fL (7.4-10.4); Platelet Count 157 thou/uL (130-400); RBC Distribution Width 12.8 % (11.5-14.5); Red Blood Cell (RBC) Count 2.65 mill/uL (4.70-6.10); White Blood Cell (WBC) Count 5.9 thou/uL (4.8-10.8)
[2019-05-18 07:55] LABS: Anion Gap 16 mmol/L (10-20); BUN (Urea Nitrogen) 13 mg/dL (8.9-20.6); Calc. Creatinine Clearance 19 mL/min (70-130); Calcium 8.8 mg/dL (7.8-10.44); Carbon Dioxide 23 mmol/L (22-29); Chloride 104 mmol/L (98-107); Estimated GFR-MDRD 10; Glucose 67 mg/dL (70-105); Potassium 3.5 mmol/L (3.5-5.1); Sodium 139 mmol/L (136-145)
--- NOTE | 2019-05-18 08:43 | PRG ---
DATE OF SERVICE: 05/18/2019 SUBJECTIVE: This morning, he is awake, alert, and responsive, where he was extubated yesterday. He is doing well. OBJECTIVE: VITAL SIGNS: His pulse is 108, blood pressure 141/83, saturations 100%, respiratory rate 24. GENERAL: He denies any pain or discomfort. CHEST: Anterior rhonchi. CARDIAC: Normal S1, S2. No gallops. ABDOMEN: Soft. IMPRESSION: 1. Status post evacuation of subdural. Status post replacement of bone flap, osteomyelitis. 2. Respiratory failure. 3. Chronic renal failure. PLAN: His antibiotics per Infectious Disease. Being dialyzed by Nephrology. Speech is being called today to assess his swallow study. PT. Diet. Supportive care. We will follow. Job ID: [id number]
[2019-05-18] MEDS: hydrALAZINE 25 MG TAB PO SCH ×3 (09:14→20:59)
[2019-05-18] MEDS: Carvedilol 3.125 MG TAB PO SCH ×2 (09:14→20:58)
[2019-05-18] MEDS: Sevelamer Carbonate 800 MG TAB PO SCH ×2 (09:14→20:58)
[2019-05-18] MEDS: Lisinopril 5 MG TAB PO SCH ×2 (09:15→20:58)
--- NOTE | 2019-05-18 09:43 | PRG ---
DATE OF SERVICE: 05/18/2019 SERVICE: Renal Medicine. SUBJECTIVE: Mr. Ayala is a 44-year-old patient, who underwent a recent replacement of a bone flap for osteomyelitis. This was said to have been complicated by development of hematoma and this was surgically evacuated. Since that time, he is doing well. He is now currently extubated. We are following him up for his maintenance hemodialysis. He underwent hemodialysis yesterday without any difficulty. No other complaints. He was also noted to be anemic, for that reason was given 1 unit of packed RBC yesterday. The patient denies any chest pain or shortness of breath. OBJECTIVE: VITAL SIGNS: Blood pressure 156/78, heart rate 105, respiratory rate 16, and pulse ox 99%. GENERAL: Noted to be awake, alert, comfortable, not in overt distress. SKIN: Adequate turgor. HEENT: Slightly pale conjunctivae. Anicteric sclerae. NECK: No neck mass. No carotid bruits. No JVD. CHEST: No deformities. LUNGS: Decreased breath sounds. HEART: Normal sinus rhythm. No murmur. No gallops. No rubs. ABDOMEN: Globular, soft, and nontender. No masses. EXTREMITIES: No edema. No deformities. NEUROLOGICAL: Awake, oriented to 3 spheres. Moving all extremities. No tremors. No asterixis. MEDICATIONS: Medication of May 18, 2019, reviewed. LABORATORY DATA: Laboratories of May 18, 2019; white count is 5.9, hemoglobin 8.6. Sodium 139, potassium 3.5, chloride 104, carbon dioxide 23, BUN 13, creatinine 6.22, glucose 67, and calcium 8.8. ASSESSMENT AND PLAN: 1. End-stage renal disease, stable, continuing heparin-free hemodialysis. Fluid removal only as tolerated. 2. Status post cranial surgery/scalp flap replacement. Surgery is following. 3. Anemia, continuing weekly Epogen. In addition, p.r.n. blood transfusion. Doing well overall. Job ID: [id number]
[2019-05-18] MEDS: Lacosamide 50 mg Tablet PO SCH ×2 (10:10→21:48)
--- NOTE | 2019-05-18 15:01 | PRG ---
DATE OF SERVICE: 05/18/2019 This is Wagner Arriaga PA-C dictating a report for Aldo Montiel MD. This is a postoperative recheck. Mr. Ayala is postoperative day #2 having undergone replacement of bone flap after having right epidural hematoma evacuation on 05/14/2019. The patient has been extubated. He does not complain of headache, nausea, vomiting, or any blurred vision. He states he would like to go home. His drain output has been minimal and less than 10 mL in each of the drains. He did receive dialysis on Friday and Friday. He actually attempted to get out of bed last night. He has been somewhat restless and agitated. He has had some high blood pressure and is on a Cardene drip that is keeping him in the ICU. Otherwise, from neurologic standpoint, the patient is significantly improved. He has mild weakness into the right hand intrinsics and he is slower to move the right side, though appears to be able to move it with some encouragement. He has good strength in the left arm and leg. His incisions are covered with a dressing. Right now, the main issue now is blood pressure control and I would ideally like his blood pressure to remain less than 150. The patient's laboratory data is stable. His hemoglobin is 8.6 today, which is improved from 7.2; and his sodium is improved at 139. We will continue to watch him neurologically, although he likely will be able to get out of the unit once his blood pressure is under better control and we ask that our medical colleagues as well as Nephrology to help us with this. Job ID: [id number]
--- NOTE | 2019-05-18 15:43 | PDOC.HOSPP ---
- Subjective Encounter Date: 05/18/19 Encounter Time: 15:41 Subjective: patient extubated, alert and awake. Frustrated with his medical condition, wants Drains from his scalp out - Objective Vital Signs & Weight: Vital Signs (12 hours) Temp Pulse Pulse Pulse BP BP BP 05/18/19 15:28 99 138/76 05/18/19 13:13 98 99 148/94 H 137/80 05/18/19 12:00 99.3 F 05/18/19 09:15 99 138/76 05/18/19 09:14 99 138/76 05/18/19 08:00 100.0 F H 05/18/19 04:00 99.8 F H Weight Admit Weight 185 lb 3.013 oz Weight 189 lb 6.033 oz Most Recent Monitor Data Heart Rate from ECG 105 NIBP 146/72 NIBP BP-Mean 96 Respiration from ECG 17 SpO2 100 I&O: 05/17/19 05/18/19 05/19/19 06:59 06:59 06:59 Intake Total 2785 3952 125 Output Total 135 47 0 Balance 2650 3905 125 Result Diagrams: 05/18/19 07:27 05/18/19 07:27 Additional Labs: Accuchecks 05/17/19 05/17/19 05/16/19 19:33 16:56 11:45 POC Glucose 88 83 63 L Hospitalist ROS - Medication Medications: Active Medications Generic Name Dose Route Start Last Admin Trade Name Freq PRN Reason Stop Dose Admin Acetaminophen 650 mg 05/13/19 12:46 05/17/19 15:50 Tylenol PO 650 mg Q4H PRN Administration Headache/Fever/Mild Pain (1-3) Atorvastatin Calcium 40 mg 05/13/19 21:00 05/17/19 21:26 Lipitor PO 40 mg HS SHANDA Administration Carvedilol 3.125 mg 05/13/19 21:00 05/18/19 09:14 Coreg PO 3.125 mg BID SHANDA Administration Cholecalciferol 2,000 units 05/14/19 09:00 05/18/19 10:09 Vitamin D3 PO 2,000 units DAILY SHANDA Administration Dextrose/Water 25 gm 05/13/19 17:27 05/16/19 12:29 Dextrose 50% SLOW IVP 12.5 gm PRN PRN Administration Hypoglycemia Docusate Sodium 100 mg 05/13/19 12:46 05/14/19 21:32 Colace PO 100 mg BIDPRN PRN Administration Constipation Epoetin Murali-epbx 10,000 unit 05/15/19 09:45 05/15/19 12:34 Retacrit SC 10,000 unit Q7D SHANDA Administration Hydralazine HCl 50 mg 05/13/19 15:00 05/18/19 15:28 Apresoline PO 50 mg TID SHANDA Administration Hydralazine HCl 10 mg 05/14/19 08:33 05/17/19 23:42 Apresoline SLOW IVP 10 mg Q4H PRN Administration SBP >140 Hydralazine HCl 10 mg 05/17/19 13:11 05/17/19 17:50 Apresoline SLOW IVP 10 mg Q15MIN PRN Administration HYPERTENSION Clindamycin Phosphate/Dextrose 50 mls @ 100 mls/hr 05/13/19 14:00 05/18/19 15 :28 900 mg/ Device IVPB 50 mls 0200,0800,1400,2000 SHANDA Administration Sodium Chloride 1,000 mls @ 75 mls/hr 05/13/19 12:45 05/18/19 13:27 Normal Saline 0.9% IV Not Given .[id number] SHANDA Levetiracetam 500 mg/ Device 100 mls @ 200 mls/hr 05/14/19 09:00 05/18/19 11: 23 IVPB 100 mls BID SHANDA Administration Levofloxacin 250 mg/ Device 50 mls @ 100 mls/hr 05/16/19 09:00 05/18/19 09:14 IVPB 50 mls Q2D@0900 SHANDA Administration Nicardipine HCl 50 mg/ Sodium 250 mls @ 0 mls/hr 05/17/19 13:30 05/18/19 02: 00 Chloride IVPB 250 mls INF SHANDA Administration Protocol Lacosamide 50 mg 05/13/19 21:00 05/18/19 10:10 Vimpat PO 50 mg BID SHANDA Administration Lisinopril 5 mg 05/13/19 21:00 05/18/19 09:15 Zestril PO 5 mg BID SHANDA Administration Ondansetron HCl 4 mg 05/13/19 12:46 05/17/19 18:44 Zofran IVP 4 mg Q8H PRN Administration Nausea/Vomiting Phenytoin Sodium 400 mg 05/13/19 21:00 05/17/19 21:26 Dilantin Er PO 400 mg HS SHANDA Administration Promethazine HCl 12.5 mg 05/13/19 22:45 05/17/19 19:41 Phenergan SLOW IVP 12.5 mg Q6H PRN Administration Nausea Scopolamine 1.5 mg 05/14/19 03:00 05/17/19 01:57 Transderm Scop TD 1.5 mg Q3D SHANDA Administration Sertraline HCl 100 mg 05/14/19 09:00 05/18/19 09:15 Zoloft PO 100 mg QAM SHANDA Administration Sevelamer Carbonate 1,600 mg 05/13/19 21:00 05/18/19 09:14 Renvela PO 1,600 mg BID SHANDA Administration - Exam General Appearance: awake alert Eye: PERRL, anicteric sclera ENT - other findings: scalp incision site healing well, 4 drains in the scalp Neck: supple, symmetric, no JVD Heart: RRR, no murmur, no gallops Respiratory: CTAB, no wheezes, no rales Gastrointestinal: soft, non-tender, non-distended, normal bowel sounds Extremities: no cyanosis, no clubbing, no edema Skin: normal turgor, no lesions, no rashes Neurological: CN's grossly intact, normal sensation to touch, no weakness, no focal deficits Musculoskeletal: normal tone, normal strength, no muscle wasting Psychiatric: normal affect, normal behavior, A&O x 3 Hosp A/P (1) Acute osteomyelitis of cranium Code(s): M86.18 - OTHER ACUTE OSTEOMYELITIS, OTHER SITE Status: Acute (2) Demand ischemia of myocardium Code(s): I24.8 - OTHER FORMS OF ACUTE ISCHEMIC HEART DISEASE Status: Acute (3) Hyperkalemia Code(s): E87.5 - HYPERKALEMIA Status: Acute (4) Seizure Code(s): R56.9 - UNSPECIFIED CONVULSIONS Status: Acute (5) Volume overload Code(s): E87.70 - FLUID OVERLOAD, UNSPECIFIED Status: Acute (6) DM type 2 (diabetes mellitus, type 2) Status: Chronic Qualifiers: Diabetes mellitus ocean transportation intermediary insulin use: without mcfp use Diabetes mellitus complication status: with kidney complications Diabetes mellitus complication detail: with chronic kidney disease Chronic kidney disease stage : on chronic dialysis Qualified Code(s): E11.22 - Type 2 diabetes mellitus with diabetic chronic kidney disease; N18.6 - End stage renal disease; Z99.2 - Dependence on renal dialysis (7) ESRD (end stage renal disease) Code(s): N18.6 - END STAGE RENAL DISEASE Status: Chronic - Plan scalp infection treated with abx, flap removal and reconstruction with complications of hematoma, infection, DIC. Redo of scalp flap, extubated IV abx Dialysis for ESRD Nutrition: starte PO feeds Diabetes: Insulin Seizures: Keppra
[2019-05-18] MEDS: Promethazine HCl 25 MG/ML VIAL SLOW IVP PRN (19:26)
--- NOTE | 2019-05-18 20:30 | CT ---
CT head noncontrast HISTORY: Vomiting. Recent surgery. COMPARISON: 05/17/2019. FINDINGS: Right craniectomy defect again demonstrated. Mild edema is unchanged in appearance. 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 No acute intracranial hemorrhage is evident. Septum pellucidum remains midline. IMPRESSION: Stable postoperative appearance of the head.
[2019-05-18 20:50] LABS: Platelet Count 171 thou/uL (130-400)
[2019-05-18 20:54] LABS: Fibrinogen 493 mg/dL (253-463)
[2019-05-18 20:55] LABS: PTT 27.8 SEC (22.9-36.1); Prothrombin Time 13.4 SEC (12.0-14.7)
[2019-05-18 20:56] LABS: D-Dimer Test 2.62 *mcg/mL (0.27-0.43)
[2019-05-18] MEDS: Atorvastatin Calcium 40 MG TAB PO SCH (20:57)
[2019-05-18 21:02] LABS: FSP-Qualitative ABNORMAL (Normal); FSP-Semiquantitative >=5 & <20 mcg/mL (Less than 5)
--- NOTE | 2019-05-18 21:16 | RAD ---
Abdomen 2 views HISTORY: Abdominal pain. Nausea and vomiting. FINDINGS: Gas and stool over the colon. No differential air-fluid levels or evidence of free subdiaph ragmatic gas. Left subclavian catheter partially visualized. IMPRESSION: Nonspecific bowel gas pattern.
[2019-05-18] MEDS: Acetaminophen 325 MG TAB PO PRN (21:48)
[2019-05-18] MEDS: Ondansetron PF 4 MG/2 ML Vial IVP PRN (23:46)
[2019-05-19] MEDS: Promethazine HCl 25 MG/ML VIAL SLOW IVP PRN ×2 (01:53→16:15)
[2019-05-19] MEDS: Clindamycin/D5W 900 MG in Premix Bag 1 BAG IVPB SCH ×4 (01:53→20:43)
[2019-05-19] MEDS: Sodium Chloride 0.9% 1,000 ML IV SCH ×2 (02:27→13:09)
[2019-05-19] MEDS: Mag-Al 1200 mg/1200 mg/30 ML UDCUP PO PRN ×2 (03:13→21:02)
[2019-05-19] MEDS: niCARdipine 50 MG in Sodium Chloride 0.9% 250 ML 230 ML IVPB SCH ×3 (03:49→22:13)
[2019-05-19] MEDS: hydrALAZINE 25 MG TAB PO SCH ×3 (08:27→20:44)
[2019-05-19] MEDS: Sevelamer Carbonate 800 MG TAB PO SCH ×2 (08:29→20:44)
[2019-05-19] MEDS: Carvedilol 3.125 MG TAB PO SCH ×2 (08:29→20:45)
[2019-05-19] MEDS: Lisinopril 5 MG TAB PO SCH ×2 (08:29→20:45)
[2019-05-19] MEDS: Lacosamide 50 mg Tablet PO SCH ×2 (09:27→20:55)
--- NOTE | 2019-05-19 09:59 | PRG ---
DATE OF SERVICE: 05/19/2019 SUBJECTIVE: Wilbert Ayala this morning, is awake and responsive, is being dialyzed. OBJECTIVE: VITAL SIGNS: Blood pressure 159/92. He is still on Cardene. Pulse 108. Respiratory rate 18. CHEST: No wheezing or crackles. CARDIAC: Normal S1 and S2. Negative mass. ASSESSMENT: 1. Status post right craniectomy, osteomyelitis. 2. Respiratory failure three. 3. Chronic renal failure. PLAN: 1. Antibiotic care is continued per Infectious Disease. 2. Pulmonary will follow while in the ICU. 3. Supportive care, PT. Job ID: [id number]
--- NOTE | 2019-05-19 10:07 | PRG ---
DATE OF SERVICE: 05/19/2019 Mr. Ayala neurologically is doing well. Unfortunately, he has pain with breathing in particular inspirational dyspnea; as such, I will order CT scan of the chest, PE protocol. Job ID: [id number]
--- NOTE | 2019-05-19 10:08 | PRG ---
DATE OF SERVICE: 05/19/2019 SUBJECTIVE: Mr. Ayala is a 44-year-old male with ESRD and followed up by the Renal Service for his maintenance hemodialysis. He is undergoing heparin-free dialysis today. I am attempting to remove 3 L only as tolerated by the patient. The patient has no new complaints today. Denies any chest pain or shortness of breath. The patient recently had a placement of new skull flap by his new surgeon. He is undergoing dialysis and tolerating said treatment. OBJECTIVE: VITAL SIGNS: Blood pressure 157/87, heart rate 104, respiratory rate 29, and pulse ox 96%. GENERAL: Awake, alert, comfortable, not in distress. SKIN: Adequate turgor. HEENT: He has slightly pale conjunctivae. Anicteric sclerae. No neck mass. No carotid bruits. No JVD. CHEST: No deformities. LUNGS: Clear breath sounds. No wheezing. No crackles. HEART: Normal sinus rhythm. No murmurs, gallops, or rubs. ABDOMEN: Globular, soft, nontender. No masses. EXTREMITIES: No edema. No deformities. MEDICATIONS: Medications of May 19, 2019, were reviewed. LABORATORY DATA: Laboratories of May 18, 2019; white count 5.9, hemoglobin 8.6. Sodium 139, potassium 3.5, chloride 104, carbon dioxide 23, BUN 13, creatinine 6.22, glucose 67, calcium 8.8. ASSESSMENT AND PLAN: 1. End-stage renal disease, stable, tolerating current hemodialysis regimen. Fluid removal as tolerated. Using no heparin due to the recent surgery. 2. Anemia. [place] [address] units subcu every week. 3. Status post cranial flap placement, doing well. Surgery is following. Job ID: [id number]
[2019-05-19] MEDS: AURYXIA PO SCH ×2 (12:53→16:34)
--- NOTE | 2019-05-19 13:42 | CT ---
EXAM: CTA of the chest HISTORY: Shortness of breath COMPARISON: None TECHNIQUE: Multiple contiguous axial images were obtained a CTA of the chest with contrast per pulmon claudy embolism protocol. 3-D oblique MIP reformats and direct coronal reformats were performed. FINDINGS: HEART: Normal in size without focal cardiac abnormality. Calcifications are seen in the coronary sandor glo. PULMONARY ARTERIES: Normal in caliber without filling defects to suggest pulmonary emboli. MEDIASTINUM: No hilar or mediastinal lymphadenopathy. Calcified mediastinal lymph nodes are seen. LUNGS: No focal infiltrates or masses. Atelectasis is seen in the lung bases. PLEURAL SPACE: No pleural effusion or pneumothorax. CHEST WALL SOFT TISSUES: Unremarkable VISUALIZED OSSEOUS STRUCTURES: Unremarkable VISUALIZED SUBDIAPHRAGMATIC STRUCTURES: Unremarkable IMPRESSION: No evidence of pulmonary thromboembolism
[2019-05-19] MEDS: Diphenoxylate HCl/Atropine Tablet PO PRN (14:19)
[2019-05-19] MEDS: Ondansetron PF 4 MG/2 ML Vial IVP PRN (16:03)
[2019-05-19] MEDS ORDERED: ISOVUE-370 76%-LOCM 1 ML ONE (16:38)
[2019-05-19] MEDS: Loperamide HCl 2 MG CAP PO PRN (20:44)
[2019-05-19] MEDS: Atorvastatin Calcium 40 MG TAB PO SCH (20:44)
--- NOTE | 2019-05-19 21:16 | PDOC.HOSPP ---
- Subjective Encounter Date: 05/19/19 Encounter Time: 17:40 Subjective: Endorses anxiety, wants anxiety pill. Takes zoloft at home, this was restarted here. Explained hesitate to give benzos in context of need for reliable neuro exam/surgery. Frustrated overall. - Objective Vital Signs & Weight: Vital Signs (12 hours) Temp Pulse BP Pulse Ox 05/19/19 20:45 109 H 141/95 H 05/19/19 20:44 108 H 141/95 H 05/19/19 20:00 98.9 F 05/19/19 19:48 98 05/19/19 16:00 99.1 F 05/19/19 14:19 112 H 154/116 H 05/19/19 11:57 98.8 F 05/19/19 11:38 99 Weight Admit Weight 185 lb 3.013 oz Weight 192 lb 3.889 oz Most Recent Monitor Data Heart Rate from ECG 108 NIBP 155/80 NIBP BP-Mean 105 Respiration from ECG 25 SpO2 97 I&O: 05/18/19 05/19/19 05/20/19 06:59 06:59 06:59 Intake Total 3952 1739 1397 Output Total 47 0 160 Balance 3905 1739 1237 Result Diagrams: 05/18/19 20:35 05/18/19 07:27 Additional Labs: Accuchecks 05/19/19 05/19/19 05/18/19 10:25 04:05 22:14 POC Glucose 88 102 89 Hospitalist ROS - Medication Medications: Active Medications Generic Name Dose Route Start Last Admin Trade Name Freq PRN Reason Stop Dose Admin Acetaminophen 650 mg 05/13/19 12:46 05/18/19 21:48 Tylenol PO 650 mg Q4H PRN Administration Headache/Fever/Mild Pain (1-3) Al Hydroxide/Mg Hydroxide 30 ml 05/13/19 12:46 05/19/19 21:02 Maalox PO 30 ml Q6H PRN Administration Indigestion Atorvastatin Calcium 40 mg 05/13/19 21:00 05/19/19 20:44 Lipitor PO 40 mg HS SHANDA Administration Carvedilol 3.125 mg 05/13/19 21:00 05/19/19 20:45 Coreg PO 3.125 mg BID SHANDA Administration Cholecalciferol 2,000 units 05/14/19 09:00 05/19/19 08:28 Vitamin D3 PO 2,000 units DAILY SHANDA Administration Dextrose/Water 25 gm 05/13/19 17:27 05/16/19 12:29 Dextrose 50% SLOW IVP 12.5 gm PRN PRN Administration Hypoglycemia Diphenoxylate HCl/Atropine 1 tab 05/13/19 12:52 05/19/19 14:19 Lomotil PO 1 tab Q8H PRN Administration Diarrhea/Loose Stools Docusate Sodium 100 mg 05/13/19 12:46 05/14/19 21:32 Colace PO 100 mg BIDPRN PRN Administration Constipation Epoetin Murali-epbx 10,000 unit 05/15/19 09:45 05/15/19 12:34 Retacrit SC 10,000 unit Q7D SHANDA Administration Hydralazine HCl 50 mg 05/13/19 15:00 05/19/19 20:44 Apresoline PO 50 mg TID SHANDA Administration Hydralazine HCl 10 mg 05/17/19 13:11 05/17/19 17:50 Apresoline SLOW IVP 10 mg Q15MIN PRN Administration HYPERTENSION Clindamycin Phosphate/Dextrose 50 mls @ 100 mls/hr 05/13/19 14:00 05/19/19 20 :43 900 mg/ Device IVPB 50 mls 0200,0800,1400,2000 SHANDA Administration Sodium Chloride 1,000 mls @ 75 mls/hr 05/13/19 12:45 05/19/19 13:09 Normal Saline 0.9% IV 1,000 mls .[id number] SHANDA Administration Levetiracetam 500 mg/ Device 100 mls @ 200 mls/hr 05/14/19 09:00 05/19/19 20: 43 IVPB 100 mls BID SHANDA Administration Levofloxacin 250 mg/ Device 50 mls @ 100 mls/hr 05/16/19 09:00 05/18/19 09:14 IVPB 50 mls Q2D@0900 SHANDA Administration Nicardipine HCl 50 mg/ Sodium 250 mls @ 0 mls/hr 05/17/19 13:30 05/19/19 14: 45 Chloride IVPB 250 mls INF SHANDA Administration Protocol Lacosamide 50 mg 05/13/19 21:00 05/19/19 20:55 Vimpat PO 50 mg BID SHANDA Administration Lisinopril 5 mg 05/13/19 21:00 05/19/19 20:45 Zestril PO 5 mg BID SHANDA Administration Loperamide HCl 2 mg 05/17/19 16:55 05/19/19 20:44 Imodium PO 2 mg Q6H PRN Administration Diarrhea/Loose Stools Ondansetron HCl 4 mg 05/13/19 12:46 05/19/19 16:03 Zofran IVP 4 mg Q8H PRN Administration Nausea/Vomiting Auryxia (Ferric 2 each 05/19/19 12:00 05/19/19 16:34 Citrate 210 Mg) PO Not Given TID-WM SHANDA Phenytoin Sodium 400 mg 05/13/19 21:00 05/19/19 20:44 Dilantin Er PO 400 mg HS SHANDA Administration Promethazine HCl 12.5 mg 05/13/19 22:45 05/19/19 16:15 Phenergan SLOW IVP 12.5 mg Q6H PRN Administration Nausea Scopolamine 1.5 mg 05/14/19 03:00 05/17/19 01:57 Transderm Scop TD 1.5 mg Q3D SHANDA Administration Sertraline HCl 100 mg 05/14/19 09:00 05/19/19 08:28 Zoloft PO 100 mg QAM SHANDA Administration Sevelamer Carbonate 1,600 mg 05/13/19 21:00 05/19/19 20:44 Renvela PO 1,600 mg BID SHANDA Administration - Exam General - other findings: Calm, breathing comfortably Eye: PERRL Neck: supple, symmetric Heart: RRR Respiratory: CTAB Gastrointestinal: soft, non-tender Extremities: no edema Skin: no rashes Neurological: no focal deficits Psychiatric: A&O x 3 Hosp A/P (1) Acute osteomyelitis of cranium Code(s): M86.18 - OTHER ACUTE OSTEOMYELITIS, OTHER SITE Status: Acute (2) Hyperkalemia Code(s): E87.5 - HYPERKALEMIA Status: Acute (3) Volume overload Code(s): E87.70 - FLUID OVERLOAD, UNSPECIFIED Status: Acute (4) DM type 2 (diabetes mellitus, type 2) Status: Chronic Qualifiers: Diabetes mellitus exterminator helper termite insulin use: without exterminator helper termite use Diabetes mellitus complication status: with kidney complications Diabetes mellitus complication detail: with chronic kidney disease Chronic kidney disease stage : on chronic dialysis Qualified Code(s): E11.22 - Type 2 diabetes mellitus with diabetic chronic kidney disease; N18.6 - End stage renal disease; Z99.2 - Dependence on renal dialysis (5) ESRD (end stage renal disease) Code(s): N18.6 - END STAGE RENAL DISEASE Status: Chronic (6) HTN (hypertension) Code(s): I10 - ESSENTIAL (PRIMARY) HYPERTENSION Status: Chronic Qualifiers: Hypertension type: essential hypertension Qualified Code(s): I10 - Essential (primary) hypertension (7) Seizure disorder Code(s): G40.909 - EPILEPSY, UNSP, NOT INTRACTABLE, WITHOUT STATUS EPILEPTICUS Status: Chronic - Plan 1. ID - Cont abx (presently clinda and levaquin); s/p flap removal/ reconstruction with c/o hematoma, infection, DIC. Consider ID consult, may need gram positive coverage, will add dose of vancomycin this evening. Longer term abx might be able to be coordinated with dialysis. 2. Pulm - CT angio negative for PE 3. Renal - ESRD on HD 4. Neuro - Keppra 5. Anxiety - continue zoloft High risk given age/comorbidites
[2019-05-19] MEDS ORDERED: Vancomycin HCl 1 GM in Premix Bag 1 BAG IVPB SCH (21:30)
[2019-05-20] MEDS: Clindamycin/D5W 900 MG in Premix Bag 1 BAG IVPB SCH ×4 (02:14→20:55)
[2019-05-20] MEDS: Scopolamine 1.5 mg/72 hour Patch TD SCH (02:16)
[2019-05-20] MEDS: Loperamide HCl 2 MG CAP PO PRN ×2 (03:33→21:10)
[2019-05-20] MEDS: hydrALAZINE 25 MG TAB PO SCH ×3 (08:11→21:11)
[2019-05-20] MEDS: Carvedilol 3.125 MG TAB PO SCH ×2 (08:11→21:11)
[2019-05-20] MEDS: Sevelamer Carbonate 800 MG TAB PO SCH ×2 (08:12→21:16)
[2019-05-20] MEDS: Lisinopril 5 MG TAB PO SCH ×2 (08:12→21:10)
[2019-05-20] MEDS: AURYXIA PO SCH ×3 (08:55→16:56)
--- NOTE | 2019-05-20 09:00 | PRG ---
DATE OF SERVICE: 05/20/2019 SUBJECTIVE: This morning, he is awake, alert, and responsive. He is still complaining of pain, midsternal, nonpleuritic. OBJECTIVE: VITAL SIGNS: His pulse is 105, blood pressure 140/110, saturations are 98% on room air, respirations 19. CHEST: Decreased breath sounds. No wheezing. CARDIAC: Sinus tach. ABDOMEN: Soft. NEUROLOGIC: Awake, alert, and responsive. IMAGING DATA: He had a CT chest done yesterday, which showed no evidence of pulmonary emboli. LABORATORY DATA: There is no lab done today. IMPRESSION: Status post craniotomy, osteomyelitis, residual bleed, status post evacuation, hypertension, and renal failure. Pulmonary boudreaux, appears to be stable. He is on antibiotics as per Infectious Disease. Being dialyzed three times a week. Disposition as per Neurosurgery. Job ID: [id number]
[2019-05-20 09:10] LABS: #Lymphocytes 0.6 thou/uL (1.20-3.40); #Monocytes 0.7 thou/uL (0.11-0.59); #Neutrophils 6.1 thou/uL (1.40-6.50); %Basophils 0.1 % (0.0-1.0); %Eosinophils 0.4 % (0.0-10.0); %Lymphocytes 8.2 % (21.0-51.0); %Monocytes 9.9 % (0.0-10.0); %Neutrophils 81.5 % (42.0-75.0); Hemoglobin 7.7 g/dL (14.0-18.0); Mean Corpuscular HGB CONC 34.5 g/dL (32.0-36.0); Mean Corpuscular Hemoglobin 32.8 pg (27.0-31.0); Mean Platelet Volume 6.5 fL (7.4-10.4); Platelet Count 182 thou/uL (130-400); RBC Distribution Width 12.3 % (11.5-14.5); Red Blood Cell (RBC) Count 2.34 mill/uL (4.70-6.10); White Blood Cell (WBC) Count 7.5 thou/uL (4.8-10.8)
[2019-05-20 09:28] LABS: Anion Gap 15 mmol/L (10-20); BUN (Urea Nitrogen) 17 mg/dL (8.9-20.6); Calc. Creatinine Clearance 20 mL/min (70-130); Calcium 7.3 mg/dL (7.8-10.44); Carbon Dioxide 17 mmol/L (22-29); Chloride 109 mmol/L (98-107); Estimated GFR-MDRD 11; Glucose 101 mg/dL (70-105); Potassium 3.1 mmol/L (3.5-5.1); Sodium 138 mmol/L (136-145)
--- NOTE | 2019-05-20 10:08 | PRG ---
DATE OF SERVICE: 05/20/2019 This is Wagner Arriaga PA-C dictating a report for Aldo Montiel MD. Mr. Ayala is hospital day #7, #6, and #4, having undergone replacement of bone flap with subsequent removal of bone flap, evacuation of epidural hematoma and then replacement of bone flap. The patient looks better today than he has in a while. He is more conversant. He states he has a little bit of epigastric discomfort, but his chest pain and shortness of breath have resolved after receiving dialysis yesterday. He does not complain of headache, nausea, vomiting, or any other complaints. His main issue is he would like to go home. He remains on Cardene as his blood pressure is still high and we asked that our medical colleagues help to control this. The Cardene is essentially was keeping him in the ICU. His drain output total has been 30. We will likely remove these later today or tomorrow. We have also contacted inpatient rehab to do a screening, but hopefully we can transition the patient out to the hospital soon provided that he has good blood pressure control. He remains with weakness on the right side, although this appears to be improved on my exam today. His dressings are dry. Please call with any changes in the patient's neurologic status. Otherwise, we would like his blood pressure to remain under good control, so that he can transition out of the unit and eventually to rehab versus home. Job ID: [id number]
[2019-05-20] MEDS: hydrALAZINE 20 MG/ML VIAL SLOW IVP PRN (10:15)
[2019-05-20] MEDS: Promethazine HCl 25 MG/ML VIAL SLOW IVP PRN (10:15)
[2019-05-20] MEDS: Mag-Al 1200 mg/1200 mg/30 ML UDCUP PO PRN ×2 (10:15→20:53)
--- NOTE | 2019-05-20 10:39 | PRG ---
DATE OF SERVICE: 05/20/2019 SUBJECTIVE: Mr. Ayala is a 44-year-old male with ESRD and was initially admitted for a replacement of a skull implant. This is complicated by development of intracranial hematoma, for which He underwent surgical evacuation. Since that time, the skull has been reimplanted again, doing well. We are following him up for his maintenance hemodialysis. He is undergoing heparin free hemodialysis due to the recent surgery. This morning, voices no new complaints. OBJECTIVE: VITAL SIGNS: Blood pressure is noted at 141/95, heart rate 109, respiratory rate 20, and pulse ox 98%. GENERAL: Awake, alert, and comfortable, not in overt distress. SKIN: Adequate turgor. HEENT: Slightly pale conjunctivae. Anicteric sclerae. NECK: No neck mass. No carotid bruits. No JVD. CHEST: No deformities. LUNGS: Clear breath sounds. No wheezing. No crackles. HEART: Normal sinus rhythm. No murmurs. No gallops. No rubs. ABDOMEN: Globular, soft, and nontender. No masses. EXTREMITIES: No edema. No deformities. MEDICATIONS: Medications of May 20, 2019, was reviewed. LABORATORY DATA: Laboratories of May 20, 2019, white count 7.5 and hemoglobin 7.7. May 18, 2019; BUN 13, creatinine 6.22, and potassium 3.5. ASSESSMENT AND PLAN: 1. End-stage renal disease, tolerating current hemodialysis regimen. Fluid removal as tolerated. Using no heparin due to the recent surgery. Continue Friday, Friday, and Friday dialysis. 2. Anemia. P.R.N. blood transfusion. Continue weekly Epogen. 3. The patient is status post skull implant. Doing well. Neurosurgery is following. Job ID: [id number]
[2019-05-20] MEDS: Lacosamide 50 mg Tablet PO SCH ×2 (11:38→21:37)
[2019-05-20] MEDS: Labetalol HCl 100 MG/20 ML VIAL SLOW IVP PRN (16:22)
--- NOTE | 2019-05-20 18:11 | PDOC.HOSPP ---
- Subjective Encounter Date: 05/20/19 Encounter Time: 16:05 Subjective: Receiving a bed bath; drains to come out today. Cardene gtt in place, weaning. - Objective Vital Signs & Weight: Vital Signs (12 hours) Temp Pulse Pulse Pulse BP BP BP 05/20/19 16:22 109 H 141/95 H 05/20/19 15:24 109 H 141/95 H 05/20/19 12:00 98 F 05/20/19 11:39 99 95 153/99 H 131/64 05/20/19 10:59 98.3 F 05/20/19 10:15 109 H 141/95 H 05/20/19 08:12 109 H 141/95 H 05/20/19 08:11 109 H 141/95 H 05/20/19 07:44 Pulse Ox Pulse Ox Pulse Ox 05/20/19 16:22 05/20/19 15:24 05/20/19 12:00 05/20/19 11:39 99 98 05/20/19 10:59 05/20/19 10:15 05/20/19 08:12 05/20/19 08:11 05/20/19 07:44 98 Weight Admit Weight 185 lb 3.013 oz Weight 188 lb 0.869 oz Most Recent Monitor Data Heart Rate from ECG 86 NIBP 128/68 NIBP BP-Mean 88 Respiration from ECG 26 SpO2 97 I&O: 05/19/19 05/20/19 05/21/19 06:59 06:59 06:59 Intake Total 1739 3338 2382 Output Total 0 160 180 Balance 1739 5948 2202 Result Diagrams: 05/20/19 08:51 05/20/19 08:51 Additional Labs: Accuchecks 05/20/19 05/20/19 05/20/19 16:08 10:27 03:40 POC Glucose 118 H 163 H 108 05/19/19 21:47 POC Glucose 104 Hospitalist ROS - Medication Medications: Active Medications Generic Name Dose Route Start Last Admin Trade Name Freq PRN Reason Stop Dose Admin Acetaminophen 650 mg 05/13/19 12:46 05/18/19 21:48 Tylenol PO 650 mg Q4H PRN Administration Headache/Fever/Mild Pain (1-3) Al Hydroxide/Mg Hydroxide 30 ml 05/13/19 12:46 05/20/19 10:15 Maalox PO 30 ml Q6H PRN Administration Indigestion Atorvastatin Calcium 40 mg 05/13/19 21:00 05/19/19 20:44 Lipitor PO 40 mg HS SHANDA Administration Carvedilol 3.125 mg 05/13/19 21:00 05/20/19 08:11 Coreg PO 3.125 mg BID SHANDA Administration Cholecalciferol 2,000 units 05/14/19 09:00 05/20/19 09:00 Vitamin D3 PO 2,000 units DAILY SHANDA Administration Dextrose/Water 25 gm 05/13/19 17:27 05/16/19 12:29 Dextrose 50% SLOW IVP 12.5 gm PRN PRN Administration Hypoglycemia Diphenoxylate HCl/Atropine 1 tab 05/13/19 12:52 05/19/19 14:19 Lomotil PO 1 tab Q8H PRN Administration Diarrhea/Loose Stools Docusate Sodium 100 mg 05/13/19 12:46 05/14/19 21:32 Colace PO 100 mg BIDPRN PRN Administration Constipation Epoetin Murali-epbx 10,000 unit 05/15/19 09:45 05/15/19 12:34 Retacrit SC 10,000 unit Q7D SHANDA Administration Hydralazine HCl 50 mg 05/13/19 15:00 05/20/19 15:24 Apresoline PO 50 mg TID SHANDA Administration Hydralazine HCl 10 mg 05/17/19 13:11 05/20/19 10:15 Apresoline SLOW IVP 10 mg Q15MIN PRN Administration HYPERTENSION Clindamycin Phosphate/Dextrose 50 mls @ 100 mls/hr 05/13/19 14:00 05/20/19 15 :24 900 mg/ Device IVPB 50 mls 0200,0800,1400,2000 SHANDA Administration Levetiracetam 500 mg/ Device 100 mls @ 200 mls/hr 05/14/19 09:00 05/20/19 08: 11 IVPB 100 mls BID SHANDA Administration Levofloxacin 250 mg/ Device 50 mls @ 100 mls/hr 05/16/19 09:00 05/20/19 08:55 IVPB 50 mls Q2D@0900 SHANDA Administration Nicardipine HCl 50 mg/ Sodium 250 mls @ 0 mls/hr 05/17/19 13:30 05/19/19 22: 13 Chloride IVPB 250 mls INF SHANDA Administration Protocol Labetalol HCl 10 mg 05/20/19 15:00 05/20/19 16:22 Normodyne SLOW IVP 10 mg Q4H PRN Administration SBP>160, hold P<60 Lacosamide 50 mg 05/13/19 21:00 05/20/19 11:38 Vimpat PO 50 mg BID SHANDA Administration Lisinopril 5 mg 05/13/19 21:00 05/20/19 08:12 Zestril PO 5 mg BID SHANDA Administration Loperamide HCl 2 mg 05/17/19 16:55 05/20/19 03:33 Imodium PO 2 mg Q6H PRN Administration Diarrhea/Loose Stools Ondansetron HCl 4 mg 05/13/19 12:46 05/19/19 16:03 Zofran IVP 4 mg Q8H PRN Administration Nausea/Vomiting Pantoprazole Sodium 40 mg 05/20/19 09:00 05/20/19 09:00 Protonix PO 40 mg DAILY SHANDA Administration Auryxia (Ferric 2 each 05/19/19 12:00 05/20/19 16:56 Citrate 210 Mg) PO 2 each TID-WM SHANDA Administration Phenytoin Sodium 400 mg 05/13/19 21:00 05/19/19 20:44 Dilantin Er PO 400 mg HS SHANDA Administration Promethazine HCl 12.5 mg 05/13/19 22:45 05/20/19 10:15 Phenergan SLOW IVP 12.5 mg Q6H PRN Administration Nausea Scopolamine 1.5 mg 05/14/19 03:00 05/20/19 02:16 Transderm Scop TD 1.5 mg Q3D SHANDA Administration Sertraline HCl 100 mg 05/14/19 09:00 05/20/19 09:00 Zoloft PO 100 mg QAM SHANDA Administration Sevelamer Carbonate 1,600 mg 05/13/19 21:00 05/20/19 08:12 Renvela PO 1,600 mg BID SHANDA Administration - Exam General Appearance: NAD Eye: anicteric sclera ENT - other findings: Drains present, noted Neck: supple Heart: RRR Respiratory: CTAB Gastrointestinal: soft, non-tender Extremities: no clubbing, no edema Skin: no rashes Neurological: no focal deficits, no new deficit Psychiatric: A&O x 3 Hosp A/P (1) Acute osteomyelitis of cranium Code(s): M86.18 - OTHER ACUTE OSTEOMYELITIS, OTHER SITE Status: Acute (2) Hyperkalemia Code(s): E87.5 - HYPERKALEMIA Status: Acute (3) Volume overload Code(s): E87.70 - FLUID OVERLOAD, UNSPECIFIED Status: Acute (4) DM type 2 (diabetes mellitus, type 2) Status: Chronic Qualifiers: Diabetes mellitus skilled nursing insulin use: without intermediate designer use Diabetes mellitus complication status: with kidney complications Diabetes mellitus complication detail: with chronic kidney disease Chronic kidney disease stage : on chronic dialysis Qualified Code(s): E11.22 - Type 2 diabetes mellitus with diabetic chronic kidney disease; N18.6 - End stage renal disease; Z99.2 - Dependence on renal dialysis (5) ESRD (end stage renal disease) Code(s): N18.6 - END STAGE RENAL DISEASE Status: Chronic (6) HTN (hypertension) Code(s): I10 - ESSENTIAL (PRIMARY) HYPERTENSION Status: Chronic Qualifiers: Hypertension type: essential hypertension Qualified Code(s): I10 - Essential (primary) hypertension (7) Seizure disorder Code(s): G40.909 - EPILEPSY, UNSP, NOT INTRACTABLE, WITHOUT STATUS EPILEPTICUS Status: Chronic - Plan 1. ID - Cont abx (presently clinda and levaquin); s/p flap removal/ reconstruction with c/o hematoma, infection, DIC --> improve 2. Pulm - CT angio negative for PE 05/19 3. Renal - ESRD on HD 4. Neuro - Keppra 5. Anxiety - continue zoloft 6. Cards - added oral Norvasc and prn IV labetolol in effort to wean cardene infusion 7. Hypokalemia - replete orally High risk given age/comorbidites
[2019-05-20] MEDS ORDERED: Potassium Chloride 20 MEQ TAB PO SCH (18:15)
[2019-05-20] MEDS: Diphenoxylate HCl/Atropine Tablet PO PRN (18:43)
[2019-05-20] MEDS: Amlodipine 5 MG TAB PO SCH (21:08)
[2019-05-20] MEDS: Atorvastatin Calcium 40 MG TAB PO SCH (21:14)
[2019-05-21] MEDS: Clindamycin/D5W 900 MG in Premix Bag 1 BAG IVPB SCH ×2 (02:29→07:17)
[2019-05-21] MEDS: AURYXIA PO SCH ×3 (07:18→16:10)
[2019-05-21] MEDS: Sevelamer Carbonate 800 MG TAB PO SCH ×2 (07:18→20:36)
[2019-05-21] MEDS: hydrALAZINE 25 MG TAB PO SCH ×3 (07:19→20:35)
[2019-05-21] MEDS: Carvedilol 3.125 MG TAB PO SCH (07:19)
[2019-05-21] MEDS: Lisinopril 5 MG TAB PO SCH ×2 (07:20→20:36)
[2019-05-21] MEDS: Amlodipine 5 MG TAB PO SCH ×2 (07:20→20:36)
--- NOTE | 2019-05-21 08:31 | PRG ---
DATE OF SERVICE: 05/21/2019 SUBJECTIVE: This morning, the patient is awake, alert, and responsive. No headache. No shortness of breath. His blood pressure remains elevated on several different medication on Cardene. OBJECTIVE: VITAL SIGNS: Pulse 90, blood pressure 120/72, saturations 100%, and respirations 16. CHEST: Decreased breath sounds. No wheezing. CARDIAC: Normal S1 and S2. No gallops. ABDOMEN: No masses. LABORATORY DATA: Platelet count is 182 and H and H 7 and 21. Lytes are normal. Creatinine 5.8. IMPRESSION AND PLAN: 1. Renal failure, being dialyzed. 2. Status post craniotomy, osteomyelitis, and seizure disorder. Blood pressure medicine adjusted. Continue antibiotics per Infectious Disease. We will follow while in the ICU. Job ID: [id number]
[2019-05-21] MEDS: Lacosamide 50 mg Tablet PO SCH ×2 (09:05→20:35)
--- NOTE | 2019-05-21 10:57 | PRG ---
DATE OF SERVICE: 05/21/2019 Mr. Ayala has now had all of his drains removed. His wound is healing well. His cosmesis is appropriate. Neurologically, he is at his baseline, alert, appropriate in his discussion and a bit delayed moving the right side, but moves the left side without apparent deficit. He has an IVC filter in longstanding and a history of DVT from his original hospitalization a couple years ago. He has had the nicardipine now turned off and his blood pressure has been satisfactory. He is continued to be on dialysis. At this point, he needs to mobilize and in my opinion, he can go home, unless he demonstrates a deficit that warrants inpatient rehabilitation. He wants to go home as well, as long as his blood pressure is satisfactory. Job ID: [id number]
--- NOTE | 2019-05-21 11:29 | PRG ---
DATE OF SERVICE: 05/21/2019 SUBJECTIVE: Mr. Ayala is a 44-year-old male and being followed by the [facility]al Service for his ESRD. He is currently undergoing hemodialysis at the present time. He is tolerating the said treatment. We are using no heparin due to the recent cranial surgery. Initially, he came in for replacement of skull implant, which he has undergone. This was also marred by development of intracranial hematoma. OBJECTIVE: VITAL SIGNS: Blood pressure is 130/70, heart rate 85, respiratory rate 18, pulse ox 100%. GENERAL: Noted to be awake, alert, comfortable, not in overt distress. SKIN: Adequate turgor. HEENT: Slightly pale conjunctivae. Anicteric sclerae. No neck mass. No carotid bruits. No JVD. CHEST: No deformities. LUNGS: Clear breath sounds. No wheezing. No crackles. HEART: Normal sinus rhythm. No murmurs, no gallops, no rubs. ABDOMEN: Globular, soft, nontender. No masses. EXTREMITIES: No edema. MEDICATIONS: Of May 21, 2019, were reviewed. LABORATORY DATA: Of May 20, 2019: Sodium 138, potassium 3.1, chloride 109, carbon dioxide 17, BUN is 17, creatinine 5.82, calcium 7.3. White count 7.5, hemoglobin 7.7. ASSESSMENT AND PLAN: 1. End-stage renal disease, stable. We will continue current Friday, Friday, and Friday hemodialysis. Fluid removal only as tolerated. We have actually during this treatment, removed 4 L within and he tolerated the said fluid removal. 2. Anemia, continuing weekly Epogen. We will check CBC in a.m. - p.r.n. blood transfusion. 3. Status post scalp flap replacement - Neurosurgery is following. Job ID: [id number]
--- NOTE | 2019-05-21 13:37 | PDOC.HOSPP ---
- Subjective Encounter Date: 05/21/19 Encounter Time: 13:34 Subjective: 44 y/o male with prior craniectomy s/p skull implant surgery complicated by epidural hematoma s/p repeat craniotomy and evacuation. hospitalist is following for medical mgt. Complaining of mild headache. - Objective Vital Signs & Weight: Vital Signs (12 hours) Temp Pulse Pulse Pulse BP BP BP 05/21/19 10:59 98.1 F 05/21/19 10:08 86 86 125/76 152/91 H 05/21/19 07:20 83 144/83 H 05/21/19 07:19 83 144/83 H 05/21/19 04:00 98.7 F Weight Admit Weight 185 lb 3.013 oz Weight 188 lb 11.451 oz Most Recent Monitor Data Heart Rate from ECG 87 NIBP 116/61 NIBP BP-Mean 79 Respiration from ECG 24 SpO2 100 I&O: 05/20/19 05/21/19 05/22/19 06:59 06:59 06:59 Intake Total 3338 3217 640 Output Total 160 180 0 Balance 3178 3037 640 Result Diagrams: 05/20/19 08:51 05/20/19 08:51 Additional Labs: Accuchecks 05/21/19 05/21/19 05/20/19 09:58 04:50 21:31 POC Glucose 89 81 100 05/20/19 16:08 POC Glucose 118 H Hospitalist ROS - Medication Medications: Active Medications Generic Name Dose Route Start Last Admin Trade Name Freq PRN Reason Stop Dose Admin Acetaminophen 650 mg 05/13/19 12:46 05/18/19 21:48 Tylenol PO 650 mg Q4H PRN Administration Headache/Fever/Mild Pain (1-3) Al Hydroxide/Mg Hydroxide 30 ml 05/13/19 12:46 05/20/19 20:53 Maalox PO 30 ml Q6H PRN Administration Indigestion Amlodipine Besylate 5 mg 05/20/19 21:00 05/21/19 07:20 Norvasc PO 5 mg BID SHANDA Administration Atorvastatin Calcium 40 mg 05/13/19 21:00 05/20/19 21:14 Lipitor PO 40 mg HS SHANDA Administration Cholecalciferol 2,000 units 05/14/19 09:00 05/21/19 07:33 Vitamin D3 PO 2,000 units DAILY SHANDA Administration Dextrose/Water 25 gm 05/13/19 17:27 05/16/19 12:29 Dextrose 50% SLOW IVP 12.5 gm PRN PRN Administration Hypoglycemia Diphenoxylate HCl/Atropine 1 tab 05/13/19 12:52 05/20/19 18:43 Lomotil PO 1 tab Q8H PRN Administration Diarrhea/Loose Stools Docusate Sodium 100 mg 05/13/19 12:46 05/14/19 21:32 Colace PO 100 mg BIDPRN PRN Administration Constipation Epoetin Murali-epbx 10,000 unit 05/15/19 09:45 05/15/19 12:34 Retacrit SC 10,000 unit Q7D SHANDA Administration Hydralazine HCl 10 mg 05/17/19 13:11 05/20/19 10:15 Apresoline SLOW IVP 10 mg Q15MIN PRN Administration HYPERTENSION Levetiracetam 500 mg/ Device 100 mls @ 200 mls/hr 05/14/19 09:00 05/21/19 07: 28 IVPB 100 mls BID SHANDA Administration Nicardipine HCl 50 mg/ Sodium 250 mls @ 0 mls/hr 05/17/19 13:30 05/19/19 22: 13 Chloride IVPB 250 mls INF SHANDA Administration Protocol Labetalol HCl 10 mg 05/20/19 15:00 05/20/19 16:22 Normodyne SLOW IVP 10 mg Q4H PRN Administration SBP>160, hold P<60 Lacosamide 50 mg 05/13/19 21:00 05/21/19 09:05 Vimpat PO 50 mg BID SHANDA Administration Lisinopril 5 mg 05/13/19 21:00 05/21/19 07:20 Zestril PO 5 mg BID SHANDA Administration Loperamide HCl 2 mg 05/17/19 16:55 05/20/19 21:10 Imodium PO 2 mg Q6H PRN Administration Diarrhea/Loose Stools Ondansetron HCl 4 mg 05/13/19 12:46 05/19/19 16:03 Zofran IVP 4 mg Q8H PRN Administration Nausea/Vomiting Pantoprazole Sodium 40 mg 05/20/19 09:00 05/21/19 07:19 Protonix PO 40 mg DAILY SHANDA Administration Auryxia (Ferric 2 each 05/19/19 12:00 05/21/19 11:13 Citrate 210 Mg) PO 2 each TID-WM SHANDA Administration Phenytoin Sodium 400 mg 05/13/19 21:00 05/20/19 21:15 Dilantin Er PO 400 mg HS SHANDA Administration Promethazine HCl 12.5 mg 05/13/19 22:45 05/20/19 10:15 Phenergan SLOW IVP 12.5 mg Q6H PRN Administration Nausea Scopolamine 1.5 mg 05/14/19 03:00 05/20/19 02:16 Transderm Scop TD 1.5 mg Q3D SHANDA Administration Sertraline HCl 100 mg 05/14/19 09:00 05/21/19 07:20 Zoloft PO 100 mg QAM SHANDA Administration Sevelamer Carbonate 1,600 mg 05/13/19 21:00 05/21/19 07:18 Renvela PO 1,600 mg BID SHANDA Administration - Exam General Appearance: awake alert Eye: anicteric sclera ENT: moist mucosa ENT - other findings: R scalp sutured laceration noted Neck: supple Heart: RRR, no murmur Respiratory: no wheezes, no rales, no ronchi, normal chest expansion Gastrointestinal: soft, non-tender, non-distended, normal bowel sounds Extremities: no cyanosis, no edema Neurological: CN's grossly intact Psychiatric: A&O x 3 Hosp A/P (1) Epidural hematoma Code(s): S06.4X9A - EPIDURAL HEMORRHAGE W LOC OF UNSP DURATION, INIT Status: Acute (2) DM type 2 (diabetes mellitus, type 2) Status: Chronic Qualifiers: Diabetes mellitus middle or intermediate school principal insulin use: without middle or intermediate school principal use Diabetes mellitus complication status: with kidney complications Diabetes mellitus complication detail: with chronic kidney disease Chronic kidney disease stage : on chronic dialysis Qualified Code(s): E11.22 - Type 2 diabetes mellitus with diabetic chronic kidney disease; N18.6 - End stage renal disease; Z99.2 - Dependence on renal dialysis (3) ESRD (end stage renal disease) Code(s): N18.6 - END STAGE RENAL DISEASE Status: Chronic (4) HTN (hypertension) Code(s): I10 - ESSENTIAL (PRIMARY) HYPERTENSION Status: Chronic Qualifiers: Hypertension type: essential hypertension Qualified Code(s): I10 - Essential (primary) hypertension (5) Seizure disorder Code(s): G40.909 - EPILEPSY, UNSP, NOT INTRACTABLE, WITHOUT STATUS EPILEPTICUS Status: Chronic (6) History of cranioplasty Code(s): Z98.890 - OTHER SPECIFIED POSTPROCEDURAL STATES Status: Acute - Plan Continue current treatments. Blood transfusion as per Neurosurgery. HD as per Nephrology
[2019-05-21 13:55] VITALS: BMI 27.8
[2019-05-21] MEDS: Acetaminophen 325 MG TAB PO PRN (14:38)
[2019-05-21] MEDS: Carvedilol 6.25 MG TAB PO SCH (16:09)
[2019-05-21] MEDS: Diphenoxylate HCl/Atropine Tablet PO PRN (16:42)
[2019-05-21] MEDS: Mag-Al 1200 mg/1200 mg/30 ML UDCUP PO PRN (16:43)
[2019-05-21] MEDS: Atorvastatin Calcium 40 MG TAB PO SCH (20:36)
[2019-05-21] MEDS: Loperamide HCl 2 MG CAP PO PRN (21:39)
[2019-05-21] MEDS: Labetalol HCl 100 MG/20 ML VIAL SLOW IVP PRN (23:13)
[2019-05-22] MEDS: Diphenoxylate HCl/Atropine Tablet PO PRN (00:16)
[2019-05-22] MEDS: hydrALAZINE 20 MG/ML VIAL SLOW IVP PRN (01:07)
[2019-05-22] MEDS: Acetaminophen 325 MG TAB PO PRN (06:39)
[2019-05-22 06:55] LABS: #Eosinphils 0.1 thou/uL (0.0-0.7); #Lymphocytes 1.8 thou/uL (1.20-3.40); #Monocytes 0.7 thou/uL (0.11-0.59); #Neutrophils 6.8 thou/uL (1.40-6.50); %Basophils 0.3 % (0.0-1.0); %Eosinophils 0.7 % (0.0-10.0); %Lymphocytes 19.1 % (21.0-51.0); %Monocytes 7.4 % (0.0-10.0); %Neutrophils 72.4 % (42.0-75.0); Hemoglobin 9.8 g/dL (14.0-18.0); Mean Corpuscular HGB CONC 35.1 g/dL (32.0-36.0); Mean Corpuscular Hemoglobin 33.7 pg (27.0-31.0); Mean Platelet Volume 6.2 fL (7.4-10.4); Platelet Count 270 thou/uL (130-400); RBC Distribution Width 12.3 % (11.5-14.5); Red Blood Cell (RBC) Count 2.91 mill/uL (4.70-6.10); White Blood Cell (WBC) Count 9.4 thou/uL (4.8-10.8)
[2019-05-22 07:19] LABS: Anion Gap 17 mmol/L (10-20); BUN (Urea Nitrogen) 25 mg/dL (8.9-20.6); Calc. Creatinine Clearance 14 mL/min (70-130); Calcium 9.4 mg/dL (7.8-10.44); Carbon Dioxide 19 mmol/L (22-29); Chloride 106 mmol/L (98-107); Estimated GFR-MDRD 8; Glucose 81 mg/dL (70-105); Potassium 4.5 mmol/L (3.5-5.1); Sodium 137 mmol/L (136-145)
--- NOTE | 2019-05-22 07:36 | PRG ---
DATE OF SERVICE: 05/22/2019 I saw Wilbert Ayala in his hospital room this morning. He remains in the ICU, but he is awake and alert. He is conversant. He is moving all his extremities. Mr. Ayala feels as though he can manage at home. His incision is still well-approximated and the tisha are in. Dr. Montiel suggested Mr. Ayala was ready for discharge this weekend and I do not disagree. We will make sure he has his home going medications. We might consider a short course of oral antibiotics given the fact that he has had 3 openings of his cranial incision. Job ID: [id number]
[2019-05-22] MEDS: Sevelamer Carbonate 800 MG TAB PO SCH (08:18)
[2019-05-22] MEDS: Carvedilol 6.25 MG TAB PO SCH (08:18)
[2019-05-22] MEDS: hydrALAZINE 25 MG TAB PO SCH (08:18)
[2019-05-22] MEDS: Lisinopril 5 MG TAB PO SCH (08:18)
[2019-05-22] MEDS: Loperamide HCl 2 MG CAP PO PRN (08:19)
[2019-05-22] MEDS: Amlodipine 5 MG TAB PO SCH (08:19)
[2019-05-22 08:20] VITALS: BP 141/84
[2019-05-22 09:26] VITALS: TEMP 98.3
--- NOTE | 2019-05-22 10:48 | PRG ---
DATE OF SERVICE: 05/22/2019 SUBJECTIVE: Mr. Ayala is a 44-year-old male with ESRD. He underwent a skull flap replacement. This was marred by development of intracranial hematoma and this was subsequently, surgically, evacuated. He is doing well. He is extubated. He is mentating excellent. The plan is to discharge him today. He denies any chest pain, shortness of breath. He underwent dialysis yesterday without any difficulty. OBJECTIVE: VITAL SIGNS: Blood pressure 145/85, heart rate 85, respiratory rate 16. GENERAL: Awake, alert, comfortable, not in distress. SKIN: Adequate turgor. HEENT: Pinkish conjunctivae. Anicteric sclerae. NECK: No neck mass. No carotid bruits. No JVD. CHEST: No deformities. LUNGS: Clear breath sounds. No wheezing. No crackles. HEART: Normal sinus rhythm. No murmur. No gallops. No rubs. ABDOMEN: Globular, soft, nontender. No masses. EXTREMITIES: No edema, no deformities. MEDICATIONS: Medications of May 22, 2019, were reviewed. LABORATORY DATA: Laboratories of May 22, 2019, white count 9.4, hemoglobin 9.8, sodium 137, potassium 4.5, chloride 106, carbon dioxide 19, BUN 25, creatinine 7.58, calcium 9.4. ASSESSMENT AND PLAN: 1. End-stage renal disease, stable, no indication for any emergent hemodialysis. Tolerating current dialysis regimen. The patient is undergoing Friday, Friday, and Friday dialysis. 2. Anemia. The patient's hemoglobin is 9.8 - we are continuing the weekly Epogen. No changes to be made. 3. Status post cranial flap replacement, doing well, surgically stable. 4. Agree with plan to discharge. Job ID: [id number]
--- NOTE | 2019-05-25 04:50 | PQF ---
YONATAN VELASQUEZ JASON MD [id number] CLINICAL DOCUMENTATION CLARIFICATION FORM: POST DISCHARGE Addendum to original discharge summary date: ____ Late entry note date: __ DATE: 05/25/19 ATTN: Aldo Montiel Please exercise your independent, professional judgment in responding to the clarification form. Clinical indicators are provided on the bottom of this form for your review Can you please further specify if Osteomyelitis was due to recent craniotomy or not? Please check appropriate box(s): [ ] Osteomyelitis was due to recent craniotomy [ ] Osteomyelitis was not due to recent craniotomy [ ] Other diagnosis please specify [ ] Unable to determine In addition, please specify: Present on Admission (POA): [ ] Yes [ ] No [ ] Unable to determine CLINICAL INDICATORS - Consult 05/13 pg.1- "Past surgical history: Craniotomy, AV malformation, Av fistula" Consult 05/13 pg.2- "Head trauma complicated by osteomyelitis" Consult 05/13 pg.- "He aslo history of traumatic brain injury and this is what resulted in the craniotomy" PD 05/15 pg.1- "Scalp infection, currently on clindamycin and levofloxacin" PN 05/18 Dr. Shin pg.1- "Underwent a recent replacement of a bone flap for osteomyelitis" RISK FACTORS Diabetes mellitus-PN Dr. Russell 05/14 pg.1 Seizure disorder-PN Dr. Russell 05/14 pg.1 Acute Osteomyelitis of the cranium-Hospitalist PN g.7 TREATMENT: Replacement of prosthetic right skull flap image- OP Report 05/13 Dr. Montiel Neuro consult- Dr. Montiel 05/13 CT Brain 05/14 Neuro monitoring (This form is maintained as a part of the permanent medical record) 2014 [employer] All Rights Reserved [email or web address] [not provided] MTDD
== END 2019-05-22 10:40 | disposition home or self-care (01) | DRG 515 ==
LOC: SURG A 05-13 07:25 → CCU 05-13 15:42
PROVIDERS: ADMIT Surgery; ATTEND Surgery
PROC: 0NR00JZ Replacement of Skull with Synthetic Substitute, Open Approach (ICD-10-PCS; principal; 2019-05-13)
PROC: 5A1D70Z Performance of Urinary Filtration, Intermittent, Less than 6 Hours Per Day (ICD-10-PCS; 2019-05-13)
PROC: 30253L1 (ICD-10-PCS; 2019-05-15)
PROC: 30253N1 (ICD-10-PCS; 2019-05-15)
PROC: 30253R1 (ICD-10-PCS; 2019-05-15)
PROC: 30253K1 (ICD-10-PCS; 2019-05-15)
PROC: 30283B1 Transfusion of Nonautologous 4-Factor Prothrombin Complex Concentrate into Vein, Percutaneous Approach (ICD-10-PCS; 2019-05-15)
PROC: 00C30ZZ Extirpation of Matter from Intracranial Epidural Space, Open Approach (ICD-10-PCS; 2019-05-16)
PROC: 0NR00JZ Replacement of Skull with Synthetic Substitute, Open Approach (ICD-10-PCS; 2019-05-16)
PROC: 5A1945Z Respiratory Ventilation, 24-96 Consecutive Hours (ICD-10-PCS; 2019-05-16)
PROC: 0NP00JZ Removal of Synthetic Substitute from Skull, Open Approach (ICD-10-PCS; 2019-05-16)
DX: M86.18 Other acute osteomyelitis, other site (principal); N18.6 End stage renal disease; D65 Disseminated intravascular coagulation [defibrination syndrome]; J96.00 Acute respiratory failure, unspecified whether with hypoxia or hypercapnia; I62.1 Nontraumatic extradural hemorrhage; I62.00 Nontraumatic subdural hemorrhage, unspecified; M96.841 Postprocedural hematoma of a musculoskeletal structure following other procedure; I12.0 Hypertensive chronic kidney disease with stage 5 chronic kidney disease or end stage renal disease; I24.8 Other forms of acute ischemic heart disease; E87.1 Hypo-osmolality and hyponatremia; I42.9 Cardiomyopathy, unspecified; Z44.8 Encounter for fitting and adjustment of other external prosthetic devices; Y83.8 Other surgical procedures as the cause of abnormal reaction of the patient, or of later complication, without mention of misadventure at the time of the procedure; E83.39 Other disorders of phosphorus metabolism; E87.5 Hyperkalemia; E87.70 Fluid overload, unspecified; E87.8 Other disorders of electrolyte and fluid balance, not elsewhere classified; E87.6 Hypokalemia; F41.9 Anxiety disorder, unspecified; D63.1 Anemia in chronic kidney disease; M88.0 Osteitis deformans of skull; G40.909 Epilepsy, unspecified, not intractable, without status epilepticus; E11.69 Type 2 diabetes mellitus with other specified complication; E11.22 Type 2 diabetes mellitus with diabetic chronic kidney disease; Z79.82 Long term (current) use of aspirin; Z79.899 Other long term (current) drug therapy; Z88.0 Allergy status to penicillin; Z98.890 Other specified postprocedural states; Z99.2 Dependence on renal dialysis
CPT/HCPCS: 36415; 36416; 36430; 70450; 71045; 71275; 74018; 74019; 80048; 80053; 82274; 82805; 85025; 85049; 85300; 85362; 85379; 85384; 85610; 85652; 85730; 86140; 86850; 86900; 86901; 87324; 87449; 90935; 93005; 93010; 93970; 94002; 94003; C1713; C9132; G0257; J0360; J1953; J1956; J2001; J2060; J2250; J2270; J2370; J2405; J2550; J2704; J3010; J3370; J3430; J3490; J7050; J7799; P9016; P9035; P9059; Q5105; Q9966

== ENCOUNTER 2019-05-06 14:30 | Outpatient (CLI) | payer MEDICARE ==
--- NOTE | 2019-05-06 15:03 | RAD ---
Exam:2 views right foot HISTORY: Subacute osteomyelitis of the right ankle and foot. COMPARISON: None FINDINGS: Amputation of the fifth digit, at the metatarsal. No evidence of significant cutaneous emph ysema. No erosive or destructive changes of the bones in the right foot Vascular calcifications are identified IMPRESSION: No radiographic evidence of osteomyelitis
== END 2019-05-06 14:31 | disposition home or self-care (01) ==
LOC: RAD 14:30
PROVIDERS: ATTEND Internal Medicine Infectious Disease
DX: M86.272 Subacute osteomyelitis, left ankle and foot (principal)

== ENCOUNTER 2019-05-11 06:39 | Outpatient (CLI) | payer MEDICARE ==
[2019-05-11 09:38] LABS: #Basophils 0.1 thou/uL (0.0-0.2); #Eosinphils 0.1 thou/uL (0.0-0.7); #Lymphocytes 1.3 thou/uL (1.20-3.40); #Monocytes 0.4 thou/uL (0.11-0.59); #Neutrophils 2.4 thou/uL (1.40-6.50); %Eosinophils 1.9 % (0.0-10.0); %Lymphocytes 30.1 % (21.0-51.0); %Monocytes 8.5 % (0.0-10.0); %Neutrophils 57.4 % (42.0-75.0); Hemoglobin 12.4 g/dL (14.0-18.0); Mean Corpuscular HGB CONC 34.1 g/dL (32.0-36.0); Mean Corpuscular Hemoglobin 34.5 pg (27.0-31.0); Mean Platelet Volume 7.9 fL (7.4-10.4); Platelet Count 128 thou/uL (130-400); RBC Distribution Width 12.3 % (11.5-14.5); Red Blood Cell (RBC) Count 3.59 mill/uL (4.70-6.10); White Blood Cell (WBC) Count 4.3 thou/uL (4.8-10.8)
[2019-05-11 09:46] LABS: PTT 29.2 SEC (22.9-36.1)
[2019-05-11 09:58] LABS: Anion Gap 16 mmol/L (10-20); BUN (Urea Nitrogen) 35 mg/dL (8.9-20.6); CRP (Inflammatory) 0.96 mg/dL (= or < 0.5); Calc. Creatinine Clearance 0 mL/min (70-130); Calcium 9.2 mg/dL (7.8-10.44); Carbon Dioxide 28 mmol/L (22-29); Chloride 99 mmol/L (98-107); Estimated GFR-MDRD 8; Glucose 100 mg/dL (70-105); Potassium 5.2 mmol/L (3.5-5.1); Sodium 138 mmol/L (136-145)
== END 2019-05-11 06:40 | disposition home or self-care (01) ==
LOC: LABBT 06:39
PROVIDERS: ATTEND Surgery
DX: Z01.818 Encounter for other preprocedural examination (principal); M86.18 Other acute osteomyelitis, other site; M88.0 Osteitis deformans of skull
CPT/HCPCS: 80048; 85025; 85610; 85652; 85730; 86140; 93005; 93010

== ENCOUNTER 2019-07-21 07:41 | Outpatient (CLI) | payer MEDICARE ==
--- NOTE | 2019-07-21 09:14 | PRG ---
DATE OF SERVICE: 07/21/2019 HISTORY: Mr. Wilbert Ayala is a very pleasant 44-year-old gentleman, who presents to the [facility] for evaluation of pain of the plantar surface of the right foot. The patient states that he experiences pain of the plantar surface of his right foot when placing pressure over the plantar surface of the right foot with stepping onto his right foot. The patient states that he has not been receiving any dressing changes with the assistance of Home Health. He states that he has been utilizing footwear fashion for him by the net technical architect. The patient has no other complaints today. He denies any fever or chills. PHYSICAL EXAMINATION: VITAL SIGNS: Temperature 97.7, pulse 60, respirations 19, and blood pressure 182/90. Accu-Chek 109. EXTREMITIES: The callus is present over the plantar surface of the right forefoot. The callus was excised with an excisional partial thickness debridement with the use of scissors. No open wound is present over the plantar surface of the right forefoot. No erythema of the plantar surface of the right forefoot is present. No significant edema of the right foot is present on exam today. A dorsalis pedis pulse is easily palpable on the right and on the left. ASSESSMENT AND PLAN: 1. Callus of plantar surface of right forefoot. As stated above, the callus was excised with an excisional partial thickness debridement with the use of scissors in clinic today. I will see Mr. Ayala again in 1 week. At this time, he will also be seen by the net technical architect. I have explained to the patient that his inserts may be adjusted to provide for more optimal offloading of the plantar surface of the right forefoot by the net technical architect. 2. Diabetes mellitus. The patient's Accu-Chek in clinic today is 109. The patient has been reminded that for optimal wound healing, his blood glucoses should remain below 150. 3. Hypertension. 4. End-stage renal disease. 5. Seizure disorder. Job ID: [id number]
== END 2019-07-21 07:42 | disposition home or self-care (01) ==
LOC: WCC 07:41
PROVIDERS: ATTEND Family Medicine
DX: L84 Corns and callosities (principal); I12.0 Hypertensive chronic kidney disease with stage 5 chronic kidney disease or end stage renal disease; E11.22 Type 2 diabetes mellitus with diabetic chronic kidney disease; N18.6 End stage renal disease; G40.909 Epilepsy, unspecified, not intractable, without status epilepticus

== ENCOUNTER 2019-07-28 13:18 | Outpatient (CLI) | payer MEDICARE ==
--- NOTE | 2019-07-28 09:09 | PRG ---
DATE OF SERVICE: 07/28/2019 HISTORY: Mr. Wilbert Ayala is a very pleasant 44-year-old gentleman, who presents to the [facility] Center for evaluation of pain at the plantar surface of the right foot. The patient states that he experiences pain of the plantar surface of his right foot when placing pressure over the plantar surface of the right foot with stepping onto his right foot. The patient reports the presence of calluses over the plantar surface of the right and left feet. The patient has no other complaints today. He denies any fever or chills. PHYSICAL EXAMINATION: VITAL SIGNS: Temperature 97.7, pulse 72, respirations 16, and blood pressure 188/91. Accu-Chek 111. EXTREMITIES: A callus is present over the plantar surface of the right forefoot. A callus is also present over the plantar surface of the left forefoot. Both calluses were excised with excisional partial thickness debridement with the use of scissors. No open wound is present over the plantar surface of the right forefoot or over the plantar surface of the left forefoot. No erythema of the plantar surface of the right forefoot or left forefoot is present. No significant edema of the right or left foot is present on exam today. ASSESSMENT AND PLAN: 1. Callus of plantar surface of right forefoot and of plantar surface of left forefoot. As stated above, the calluses were excised with excisional partial thickness debridement with the use of scissors in clinic today. The patient will be seen by the marker assembler today. The inserts may be adjusted to provide for more optimal offloading of the plantar surface of the right forefoot and left forefoot by the marker assembler. I will see Mr. Ayala again in the next 3-4 weeks. At this time, he will also be seen by the marker assembler. 2. Diabetes mellitus. The patient's Accu-Chek in clinic today is 111. The patient has been reminded that for optimal wound healing his blood glucoses should remain below 150. 3. Hypertension. 4. End-stage renal disease. 5. Seizure disorder. Job ID: [id number]
== END 2019-07-28 13:19 | disposition home or self-care (01) ==
LOC: WCC 13:18
PROVIDERS: ATTEND Family Medicine
DX: M79.671 Pain in right foot (principal); E11.22 Type 2 diabetes mellitus with diabetic chronic kidney disease; I12.0 Hypertensive chronic kidney disease with stage 5 chronic kidney disease or end stage renal disease; N18.6 End stage renal disease; R56.9 Unspecified convulsions
CPT/HCPCS: 97597

== ENCOUNTER 2019-08-15 00:03 | Inpatient (IN) | payer MEDICARE ==
[2019-08-15] MEDS ORDERED: hydrALAZINE 20 MG/ML VIAL ONE (00:44)
[2019-08-15 00:52] LABS: Hemoglobin 10.2 g/dL (14.0-18.0); Mean Corpuscular HGB CONC 34.5 g/dL (32.0-36.0); Mean Corpuscular Hemoglobin 33.7 pg (27.0-31.0); Mean Corpuscular Volume 97.5 fL (78.0-98.0); RBC Distribution Width 13.4 % (11.5-14.5); Red Blood Cell (RBC) Count 3.04 mill/uL (4.70-6.10)
[2019-08-15 01:05] LABS: #Eosinphils 0.1 thou/uL (0.0-0.7); #Monocytes 0.4 thou/uL (0.11-0.59); #Neutrophils 4.5 thou/uL (1.40-6.50); %Basophils 0.1 % (0.0-1.0); %Eosinophils 1.4 % (0.0-10.0); %Lymphocytes 16.4 % (21.0-51.0); %Neutrophils 75.1 % (42.0-75.0); Mean Platelet Volume 8.1 fL (7.4-10.4); Platelet Count 103 thou/uL (130-400); Platelet Morphology Comment Appears Decreased
[2019-08-15 01:11] LABS: ALT (SGPT) 17 U/L (8-55); AST (SGOT) 12 U/L (5-34); Albumin 3.8 g/dL (3.5-5.0); Alkaline Phosphatase 115 U/L (40-110); Anion Gap 26 mmol/L (10-20); BUN (Urea Nitrogen) 98 mg/dL (8.9-20.6); Bilirubin, Total 0.6 mg/dL (0.2-1.2); Calc. Creatinine Clearance 0 mL/min (70-130); Calcium 9.1 mg/dL (7.8-10.44); Carbon Dioxide 18 mmol/L (22-29); Chloride 99 mmol/L (98-107); Estimated GFR-MDRD 4; Globulin 2.8 g/dL (2.4-3.5); Glucose 66 mg/dL (70-105); Magnesium 2.8 mg/dL (1.6-2.6); Potassium 6.1 mmol/L (3.5-5.1); Protein, Total 6.6 g/dL (6.0-8.3); Sodium 137 mmol/L (136-145)
[2019-08-15] MEDS ORDERED: Calcium Chloride 1 GM/10 ML Abboject SYRINGE ONE (01:33)
[2019-08-15] MEDS ORDERED: Sodium Bicarb 50 MEQ/50 ML VIAL ONE (01:33)
[2019-08-15] MEDS ORDERED: Dextrose 50% Abboject 50 ML SYRINGE ONE (01:33)
[2019-08-15] MEDS ORDERED: Insulin Regular 300 UNITS/3 ML VIAL ONE (01:34)
--- NOTE | 2019-08-15 02:13 | PDOC.FPRHP ---
- History of Present Illness Chief Complaint: Missed dialysis Friday and Friday History of Present Illness: 44 yo male with ESRD on HD MWF, seizure d/o, and type 2 diabetes presents who presents via EMS after sweating profusing at home and thinks he has a seizure, but is unable to recount anything besides him having night sweats and waking up and falling back to sleep. He says he did have bowel and bladder incontinence and bit his tongue. Says he seizures in the past have been grand mal. History obtained from EMS, 44 y/o M, with h/o seizures, presents to ED via EMS transport s/p possible seizure. Pt's called 911 on finding pt in bed, with pt diaphoretic and confused. D-stick for EMS was 78. He attends dialysis M, , . Pt has missed his last 2 dialysis sessions; he last attended dialysis on Friday. His collections assistant is Dr Shin. Pt is unable to name his seizure medication but notes he is compliant and has not missed any doses. ED Course: In the ED, he received 1 Amp of D50w, 1 Amp of Sodium Bicarbonate, 1 Amp of Calcium Chloride, Humulin 10 Units, and Hydralazine 10 mg. - Allergies/Adverse Reactions Allergies Allergy/AdvReac Type Severity Reaction Status Date / Time Penicillins Allergy Intermediate Hives Verified 05/11/19 08:34 - Home Medications Medication Instructions Recorded Confirmed Type Phenytoin Sodium Extended 400 mg PO HS 04/20/17 08/15/19 History Carvedilol [Coreg] 3.125 mg PO BID #60 tab 05/23/17 08/15/19 Rx Cholecalciferol (Vitamin D3) 2,000 units PO DAILY 10/20/18 08/15/19 History [Vitamin D3] Sertraline HCl [Zoloft] 100 mg PO QAM 10/20/18 08/15/19 History Atorvastatin Calcium [Lipitor] 40 mg PO HS #30 tab 10/26/18 08/15/19 Rx hydrALAZINE [Apresoline] 50 mg PO TID #90 tab 10/26/18 08/15/19 Rx levETIRAcetam [Keppra] 500 mg PO BID #60 tab 02/12/19 08/15/19 Rx Diphenoxylate HCl/Atropine 1 tab PO PRN PRN 05/11/19 08/15/19 History [Lomotil] Ferric Citrate [Auryxia] 1 tab PO TID 05/11/19 08/15/19 History Lisinopril [Zestril] 1 tab PO BID 05/11/19 08/15/19 History Aspirin [Aspir-Low] 81 mg PO DAILY 08/15/19 08/15/19 History traMADol HCl [Tramadol HCl] 50 mg PO BID 08/15/19 08/15/19 History - History PMHx:Type 2 diabetes, Neuropathy, ESRD on HD MWF, Seizure d/o PSHx: craniotomy, amputation of right fifth toe FHx:mom-diabetes Social:denies smoking, drinking, alcohol, lives with , sister and brother - Review of Systems General: reports: fever/chills, night sweats Eyes: denies: vision changes ENT: denies: nasal congestion Respiratory: denies: cough, congestion, shortness of breath Cardiovascular: denies: chest pain Gastrointestinal: reports: vomiting (x3), diarrhea. denies: nausea Genitourinary: denies: dysuria Skin: denies: rashes Musculoskeletal: reports: pain Neurological: denies: numbness, weakness - Vital signs BP: 209/100 HR: 93 RR: 29 Tmax: Pox: 97% on RA Wt: - Physical Exam Constitutional: NAD HEENT: normocephalic and atraumatic, PERRLA, EOMI, normal nasal mucosa, MMM, oropharynx clear Neck: supple, trachea midline Chest: no-tender to palpation Heart: RRR, normal S1/S2 Lungs: CTAB Abdomen: soft, non-tender, bowel sounds present Musculoskeletal: normal structure, normal tone, ROM grossly normal Neurological: no focal deficit, CN II-XII intact, normal sensation Skin: no rash/lesions Heme/Lymphatic: no unusual bruising or bleeding, no purpura, no petechia FMR H&P: Results - Labs Result Diagrams: 08/15/19 03:25 08/15/19 03:25 Lab results: WBC 6.0 thou/uL (4.8-10.8) 08/15/19 00:30 Hgb 10.2 g/dL (14.0-18.0) L 08/15/19 00:30 Hct 29.7 % (42.0-52.0) L 08/15/19 00:30 MCV 97.5 fL (78.0-98.0) 08/15/19 00:30 Plt Count 103 thou/uL (130-400) L 08/15/19 00:30 Neutrophils % 75.1 % (42.0-75.0) H 08/15/19 00:30 Sodium 137 mmol/L (136-145) 08/15/19 00:30 Potassium 6.1 mmol/L (3.5-5.1) H 08/15/19 00:30 Chloride 99 mmol/L (98-107) 08/15/19 00:30 Carbon Dioxide 18 mmol/L (22-29) L 08/15/19 00:30 BUN 98 mg/dL (8.9-20.6) H 08/15/19 00:30 Creatinine 15.20 mg/dL (0.7-1.3) H 08/15/19 00:30 Glucose 66 mg/dL (70-105) L 08/15/19 00:30 Calcium 9.1 mg/dL (7.8-10.44) 08/15/19 00:30 Total Bilirubin 0.6 mg/dL (0.2-1.2) 08/15/19 00:30 AST 12 U/L (5-34) 08/15/19 00:30 ALT 17 U/L (8-55) 08/15/19 00:30 Alkaline Phosphatase 115 U/L (40-110) H 08/15/19 00:30 Serum Total Protein 6.6 g/dL (6.0-8.3) 08/15/19 00:30 Albumin 3.8 g/dL (3.5-5.0) 08/15/19 00:30 FMR H&P: A/P - Problem List (1) DM type 2 (diabetes mellitus, type 2) Current Visit: No Status: Chronic Qualifiers: Diabetes mellitus intermediate insulin use: without meterman use Diabetes mellitus complication status: with kidney complications Diabetes mellitus complication detail: with chronic kidney disease Chronic kidney disease stage : on chronic dialysis Qualified Code(s): E11.22 - Type 2 diabetes mellitus with diabetic chronic kidney disease; N18.6 - End stage renal disease; Z99.2 - Dependence on renal dialysis (2) ESRD (end stage renal disease) Current Visit: No Status: Chronic Code(s): N18.6 - END STAGE RENAL DISEASE (3) HTN (hypertension) Current Visit: No Status: Chronic Code(s): I10 - ESSENTIAL (PRIMARY) HYPERTENSION Qualifiers: Hypertension type: essential hypertension Qualified Code(s): I10 - Essential (primary) hypertension (4) Seizure disorder Current Visit: No Status: Chronic Code(s): G40.909 - EPILEPSY, UNSP, NOT INTRACTABLE, WITHOUT STATUS EPILEPTICUS Comment: on AEDs (5) CHF (congestive heart failure) Current Visit: No Status: Resolved Code(s): I50.9 - HEART FAILURE, UNSPECIFIED Comment: has normal ef on echo 10/23/2018 - Plan 44 yo male with ESRD on HD MWF, seizure d/o, and type 2 diabetes presents who presents via EMS after sweating profusing at home and thinks he has a seizure. 1. Seizure Seizure witnessed by who is not present * Pt bit his tongue and had incontinence * Dilantin & Valproic levels were checked and found to be low * Will reconcile and restart home meds 2. ESRD Dialysis M, W, F usually, but last dialysis was Friday * BUN: 98, Cre: 15.2 * Dr. Shin consulted 08/15, will recieve dialysis later today * Hyperkalemia protocol initiated in ER, K: 6.1, EKG did not show changes 3. DM II BG low in ER due to Insulin * Hypoglycemia protocol ordered * SSI mild ordered * Will reconcile home meds * Q6H glucose checks 4. HTN BP in 200s/100s * Given Hydralazine in ED * Hydralazine ordered 10 mg prn * Will reconcile home meds Lines: Peripheral Code Status: Full PCP: NOHEMI Roberts DVT PPX: SCDs Dispo: Inpt, LOS > 48H. Needs Dialysis and electrolyte monitoring and management. FMR H&P: Upper Level - Plan Date/Time: 08/15/19 0211 44 yo gentleman with ESRD on HD MWF, seizure d/o, and diabetes, presents via EMS with diaphoresis and s/p a seizure at home. He missed his dialysis on W and . He was admitted for hyperkalemia requiring urgent dialysis. Nephrology was consulted in the ER and plans on dialyzing him this am. He was given calcium chloride, 10U regular insulin, and dextrose in the ER for his hyperkalemia. We will check an BMP in the am. For his seizure, we will restart his home medications. For his hypertensive urgency, he was given hydralazine 10mg IV in the ER. We will restart his home medications for his hypertension and provide prns available for SBP >180 systolic. For his diabetes, we will restart his home medications. We will monitor him closely. Kasie Nelson MD, PGY-3 Addendum - Attending - Attending Attestation Date/Time: 08/15/19 8845 I personally evaluated the patient and discussed the management with the team. I agree with the History, Examination, Assessment and Plan documented above with any addition or exceptions noted below. Patient with h/o epilepsy, also with h/o severe TBI requiring emergency decompression and subsequent bone infection with replacement, hematoma evacuation, etc. On exam he has lingual trauma and is unsure, but thinks he may have broken a tooth. His lungs are clear, his heart is regular without murmur. His speech is slow with mild dysarticulation. He has difficulty with remote memory. Restart home seizure meds. Dialysis today, restart home BP meds. Follow closely.
[2019-08-15] MEDS ORDERED: Ondansetron ODT 4 MG TAB PO PRN (03:07)
[2019-08-15] MEDS ORDERED: Lorazepam 2 MG/ML VIAL SLOW IVP PRN (03:07)
[2019-08-15] MEDS ORDERED: Senokot S 8.6-50 MG TAB PO PRN (03:07)
[2019-08-15] MEDS ORDERED: Acetaminophen 325 MG TAB PO PRN (03:07)
[2019-08-15] MEDS ORDERED: Ondansetron PF 4 MG/2 ML Vial IVP PRN (03:07)
[2019-08-15] MEDS ORDERED: Dextrose 50% Abboject 50 ML SYRINGE SLOW IVP PRN (03:07)
[2019-08-15] MEDS ORDERED: Dextrose 5% in Water 1,000 ML IV PRN (03:07)
[2019-08-15] MEDS ORDERED: Insulin Regular 300 UNITS/3 ML VIAL SC PRN (03:07)
[2019-08-15 04:01] LABS: #Eosinphils 0.1 thou/uL (0.0-0.7); #Monocytes 0.4 thou/uL (0.11-0.59); #Neutrophils 4.8 thou/uL (1.40-6.50); %Basophils 0.3 % (0.0-1.0); %Eosinophils 1.6 % (0.0-10.0); %Monocytes 6.1 % (0.0-10.0); Hemoglobin 10.1 g/dL (14.0-18.0); Mean Corpuscular Hemoglobin 32.8 pg (27.0-31.0); Mean Corpuscular Volume 96.5 fL (78.0-98.0); Mean Platelet Volume 8.2 fL (7.4-10.4); Platelet Count 112 thou/uL (130-400); RBC Distribution Width 13.4 % (11.5-14.5); Red Blood Cell (RBC) Count 3.09 mill/uL (4.70-6.10); White Blood Cell (WBC) Count 6.3 thou/uL (4.8-10.8)
[2019-08-15] MEDS ORDERED: Dextrose 50 % In Water 50 ML SYRINGE ONE (04:20)
[2019-08-15 04:23] LABS: ALT (SGPT) 16 U/L (8-55); AST (SGOT) 13 U/L (5-34); Albumin 3.8 g/dL (3.5-5.0); Alkaline Phosphatase 118 U/L (40-110); Anion Gap 24 mmol/L (10-20); BUN (Urea Nitrogen) 96 mg/dL (8.9-20.6); Bilirubin, Total 0.6 mg/dL (0.2-1.2); Calc. Creatinine Clearance 0 mL/min (70-130); Calcium 9.7 mg/dL (7.8-10.44); Carbon Dioxide 21 mmol/L (22-29); Chloride 100 mmol/L (98-107); Estimated GFR-MDRD 4; Globulin 2.9 g/dL (2.4-3.5); Glucose 66 mg/dL (70-105); Potassium 5.9 mmol/L (3.5-5.1); Protein, Total 6.7 g/dL (6.0-8.3); Sodium 139 mmol/L (136-145)
[2019-08-15] MEDS ORDERED: hydrALAZINE 20 MG/ML VIAL SLOW IVP SCH ×2 (04:30→16:30)
[2019-08-15] MEDS ORDERED: Diphenoxylate HCl/Atropine Tablet PO PRN (06:40)
[2019-08-15] MEDS ORDERED: Epoetin (ESRD) 20,000 UNITS/ML SC SCH (07:00)
--- NOTE | 2019-08-15 08:58 | RAD ---
CHEST 1 VIEW: INDICATION: Emergency examination for seizures. COMPARISON: Prior exam dated 05/17/2019. FINDINGS: There is stable mild cardiomegaly. No consolidation, pleural effusion, or pneumothorax is evident. No acute osseous abnormality is evident. IMPRESSION: Stable cardiomegaly. POS: BH
[2019-08-15] MEDS ORDERED: FERRIC CITRATE PO SCH (09:00)
--- NOTE | 2019-08-15 09:40 | PRG ---
DATE OF SERVICE: 08/15/2019 SUBJECTIVE: Mr. Ayala is a 44-year-old male with known history of ESRD - on maintenance hemodialysis, was admitted for mental status change. It was thought that he may be having seizure episodes. 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 We were consulted for his maintenance hemodialysis. His potassium was noted to be elevated last night on admission at 6.1. It is currently 5.9. Our plan is to do a short hemodialysis with this patient for at least 3 hours and we then resume him back to his regular hemodialysis schedule tomorrow. REVIEW OF SYSTEMS: Positive for diaphoresis. Positive for decreased mentation. No nausea. No vomiting. No abdominal pain. No productive cough. No fever or chills. No headache. No diplopia. No syncopal episode. No sore throat. No hematochezia. No melena. No hematemesis. Appetite is fair. Energy level is fair. No fever or chills. HOME MEDICATIONS: Include the following; 1. Tramadol 50 mg p.o. b.i.d. 2. Levetiracetam 500 mg p.o. b.i.d. 3. Hydralazine 50 mg p.o. t.i.d. 4. Sertraline 100 mg q.a.m. 5. Phenytoin 400 mg at bedtime. 6. Lisinopril 5 mg p.o. b.i.d. 7. Renvela.t.i.d. with meals. 8. Lomotil p.r.n. 9. Vitamin D3 of 2000 international units daily. 10. Carvedilol 3.125 mg p.o. b.i.d. 11. Atorvastatin 40 mg tablet at bedtime. 12. Aspirin 81 mg daily. The patient is currently on famotidine at 20 mg tablet at bedtime. PAST MEDICAL HISTORY: 1. ESRD from diabetic nephropathy. 2. Type 2 diabetes mellitus. 3. History of seizure disorder. 4. Hypertension. 5. Status post intracranial bleed. PAST SURGICAL HISTORY: Status post multiple craniotomy, status post AV fistula placement, status post cuffed hemodialysis catheter, status post PD catheter placement with subsequent removal, status post colonoscopy. SOCIAL HISTORY: The patient but lives alone - . He has 3 children. He lives in [place]. 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 Currently unemployed. No alcohol. No smoking. Status post blood transfusion. Education; seventh grade. ALLERGIES: PENICILLIN. TRAUMA: Status post head injury/subdural hematoma. IMMUNIZATION: Up-to-date. HOSPITALIZATIONS: Please see past medical history. FAMILY HISTORY: No family history of ESRD. PHYSICAL EXAMINATION: VITAL SIGNS: Blood pressure is 194/93, heart rate 90, temperature 97.9, pulse ox 99%. GENERAL: Noted to be awake, not in distress. SKIN: Adequate turgor. HEENT: Noted to have slightly pale conjunctivae. Anicteric sclerae. NECK: No neck mass. No carotid bruits. No JVD. CHEST: No deformities. LUNGS: Clear breath sounds. No wheezing. No crackles. HEART: Normal sinus rhythm. No murmur. No gallops. No rubs. ABDOMEN: Globular. Soft, nontender. No masses. EXTREMITIES: No edema. No deformities. DIAGNOSTIC IMPRESSION: August 15, 2019; chest x-ray noted to have increased lung markings. LABORATORY DATA: Laboratories of August 15, 2019; white count 6.3, hemoglobin 10.1. Sodium 139, potassium 5.9, chloride 100, carbon dioxide 21, BUN 96, creatinine 15, calcium 9.7, AST 13, ALT 16. ASSESSMENT AND PLAN: 1. Hypoglycemia - hypoglycemic episode noted early this morning. D50 and glucagon have been given to this patient. 2. End-stage renal disease. Due to the elevated potassium, he will be scheduled for 3-hour hemodialysis today with fluid removal only as tolerated. The plan is then to continue his regular Friday, Friday, and Friday hemodialysis regimen. Review of this last Kt/V suggests he is adequately dialyzed with the current dialysis regimen. 3. Borderline anemia. Continue Epogen 7500 units subcu every week. 4. Seizure disorder. Adjust antiseizure medications. 5. Agree with current management. Job ID: [id number] [facility]
[2019-08-15] MEDS ORDERED: EPOETIN ALFA-EPBX (ESRD) 4,000 UNIT/ML VIAL SC SCH (12:00)
[2019-08-15] MEDS ORDERED: Prevnar 13-Val Conj/PF 0.5 ML SYRINGE IM ONE (12:15)
[2019-08-15] MEDS: hydrALAZINE 25 MG TAB PO SCH ×3 (13:08→20:46)
[2019-08-15] MEDS: Carvedilol 3.125 MG TAB PO SCH ×2 (13:08→20:46)
[2019-08-15] MEDS: Famotidine 20 MG TAB PO SCH (13:08)
[2019-08-15] MEDS: Aspirin 81 mg Enteric Coated Tablet PO SCH (13:08)
[2019-08-15] MEDS: Lisinopril 5 MG TAB PO SCH ×2 (13:09→20:46)
[2019-08-15] MEDS: levETIRAcetam 500 MG TAB PO SCH ×2 (13:10→20:46)
[2019-08-15] MEDS: traMADol HCl 50 MG TAB PO PRN (15:53)
[2019-08-15] MEDS ORDERED: hydrALAZINE 10 MG TAB PO PRN (16:09)
[2019-08-15] MEDS: Atorvastatin Calcium 40 MG TAB PO SCH (20:46)
--- NOTE | 2019-08-16 05:00 | PDOC.FM ---
- Subjective Subjective: Mr. Ayala is doing well this morning. He states he is feeling better. He states that he missed dialysis prior to admission due to changes in the holiday schedule. He had dialysis yesterday. - Objective MAR Reviewed: Yes Vital Signs & Weight: Vital Signs (12 hours) Temp Pulse Resp BP BP Pulse Ox 08/16/19 04:00 98.7 F 71 16 117/59 L 97 08/16/19 01:45 100 08/16/19 00:00 98.5 F 79 16 174/93 H 97 08/15/19 20:46 94 197/102 H 08/15/19 19:11 99.0 F 94 20 197/102 H 100 08/15/19 17:30 195/95 H Weight Weight 82.645 kg I&O: 08/14/19 08/15/19 08/16/19 06:59 06:59 06:59 Intake Total 480 Output Total 5300 Balance -4820 Result Diagrams: 08/16/19 04:42 08/16/19 04:42 Phys Exam - Physical Examination Constitutional: NAD HEENT: PERRLA, moist MMs, sclera anicteric Neck: no JVD, supple Respiratory: no wheezing, no rales, no rhonchi, clear to auscultation bilateral Cardiovascular: RRR, no significant murmur, no rub AV fistula left arm Gastrointestinal: soft, non-tender, no distention, positive bowel sounds Musculoskeletal: no edema, pulses present Neurological: non-focal, normal sensation, moves all 4 limbs Psychiatric: normal affect, A&O x 3 Skin: no rash, normal turgor Dx/Plan (1) History of cranioplasty Code(s): Z98.890 - OTHER SPECIFIED POSTPROCEDURAL STATES Status: Acute (2) Hyperkalemia Code(s): E87.5 - HYPERKALEMIA Status: Acute (3) Seizure Code(s): R56.9 - UNSPECIFIED CONVULSIONS Status: Acute (4) DM type 2 (diabetes mellitus, type 2) Status: Chronic Qualifiers: 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: without termite exterminator helper use Diabetes mellitus complication status: with kidney complications Diabetes mellitus complication detail: with chronic kidney disease Chronic kidney disease stage : on chronic dialysis Qualified Code(s): E11.22 - Type 2 diabetes mellitus with diabetic chronic kidney disease; N18.6 - End stage renal disease; Z99.2 - Dependence on renal dialysis (5) ESRD (end stage renal disease) Code(s): N18.6 - END STAGE RENAL DISEASE Status: Chronic (6) HTN (hypertension) Code(s): I10 - ESSENTIAL (PRIMARY) HYPERTENSION Status: Chronic Qualifiers: Hypertension type: essential hypertension Qualified Code(s): I10 - Essential (primary) hypertension - Plan Plan: 44 yo male with ESRD on HD MWF, seizure d/o, and type 2 diabetes presents who presents via EMS after he believed he had a seizure. Seizure Dilantin level low. Patient lives with brother, states that he has a sister who can help him manage his medications. Will restart home meds - Keppra 500 BID, Phenytoin 400mg HS ESRD Dialysis M, W, F. (Missed 2 PLEAT TAPER, due to holiday schedule) Received dialysis yesterday. Per Dr. Shin's note, he is to restart his MWF schedule. Dr. Shin is planning to dialyze this afternoon. If the patient tolerates dialysis and has no new concerns, will likely d/c after dialysis. DM II Diet controlled. Patient checks his glucose once daily and states that is usually in the 100s. HTN On Coreg 3.125 BID, Lisinopril 10mg, Hydralazine 50mg Has had hypertensive episodes since admission. Will continue to monitor. Added 10mg hydralazine prn today Anemia, likely chronic disease On Epoetin. Will monitor. Depression / Anxiety Zoloft 100mg Code Status: Full PCP: NOHEMI Roberts DVT PPX: SCDs Dispo: Inpt, LOS > 48H. Needs Dialysis and electrolyte monitoring and management. Addendum - Attending - Attending Attestation Date/Time: 08/17/19 7858 I personally evaluated the patient and discussed the management with Dr. Lambert yesterday. I agree with the History, Examination, Assessment and Plan documented above with any addition or exceptions noted below.
[2019-08-16 06:07] LABS: #Eosinphils 0.1 thou/uL (0.0-0.7); #Lymphocytes 1.4 thou/uL (1.20-3.40); #Monocytes 0.4 thou/uL (0.11-0.59); #Neutrophils 1.6 thou/uL (1.40-6.50); %Basophils 0.1 % (0.0-1.0); %Monocytes 11.9 % (0.0-10.0); Hemoglobin 11.5 g/dL (14.0-18.0); Mean Corpuscular HGB CONC 33.4 g/dL (32.0-36.0); Mean Corpuscular Hemoglobin 32.7 pg (27.0-31.0); Mean Corpuscular Volume 97.9 fL (78.0-98.0); Platelet Count 122 thou/uL (130-400); RBC Distribution Width 13.7 % (11.5-14.5); Red Blood Cell (RBC) Count 3.51 mill/uL (4.70-6.10); White Blood Cell (WBC) Count 3.6 thou/uL (4.8-10.8)
[2019-08-16 06:29] LABS: Anion Gap 16 mmol/L (10-20); BUN (Urea Nitrogen) 53 mg/dL (8.9-20.6); Calc. Creatinine Clearance 10 mL/min (70-130); Calcium 9.5 mg/dL (7.8-10.44); Carbon Dioxide 27 mmol/L (22-29); Chloride 98 mmol/L (98-107); Estimated GFR-MDRD 5; Glucose 94 mg/dL (70-105); Potassium 5.4 mmol/L (3.5-5.1); Sodium 136 mmol/L (136-145)
[2019-08-16] MEDS: traMADol HCl 50 MG TAB PO PRN (09:07)
[2019-08-16] MEDS: Aspirin 81 mg Enteric Coated Tablet PO SCH (09:08)
[2019-08-16] MEDS: Lisinopril 5 MG TAB PO SCH ×2 (09:09→20:08)
[2019-08-16] MEDS: hydrALAZINE 25 MG TAB PO SCH ×3 (09:09→20:06)
[2019-08-16] MEDS: levETIRAcetam 500 MG TAB PO SCH ×2 (09:09→20:08)
[2019-08-16] MEDS: Famotidine 20 MG TAB PO SCH (09:10)
[2019-08-16] MEDS: Carvedilol 3.125 MG TAB PO SCH ×2 (09:10→20:08)
--- NOTE | 2019-08-16 09:33 | PRG ---
DATE OF SERVICE: 08/16/2019 SUBJECTIVE: Mr. Ayala is a 44-year-old male with ESRD and followed up by the [facility] for his maintenance hemodialysis. He underwent hemodialysis yesterday due to elevated potassium. He was admitted due to mental status change. He also had some hypoglycemic episode yesterday. This morning, he is feeling better. He denies any chest pain or shortness of breath. OBJECTIVE: VITAL SIGNS: Blood pressure 158/94, heart rate 80, respiratory rate 16, temperature 98.2, and pulse ox 98%. GENERAL: Noted to be awake, alert, sitting comfortable, not in distress. SKIN: Adequate turgor. HEENT: Pinkish conjunctivae. Anicteric sclerae. NECK: No neck mass. No carotid bruits. No JVD. CHEST: No deformities. LUNGS: Clear breath sounds. No wheezing. No crackles. HEART: Normal sinus rhythm. No murmurs. No gallops. No rubs. ABDOMEN: Globular, soft, and nontender. No masses. EXTREMITIES: No edema. MEDICATIONS: Medications of August 16, 2019, were reviewed. LABORATORY DATA: Laboratories of August 16, 2019; white count 3.6, hemoglobin 11.5. Sodium 136, potassium 5.4, chloride 98, carbon dioxide 27, BUN 53, creatinine 11.1, glucose 94, and calcium 9.5. ASSESSMENT AND PLAN: 1. End-stage renal disease - stable. We will continue current Friday, Friday, and Friday hemodialysis. Fluid removal as tolerated by the patient. 2. Borderline anemia. Currently, the patient is on his weekly Epogen at 7500 units subcu every week. 3. Hypoglycemia, much improved. 4. Decreased mentation - much improved. 5. Agree with current management. Job ID: [id number]
[2019-08-16] MEDS ORDERED: hydrALAZINE 20 MG/ML VIAL SLOW IVP PRN (11:34)
[2019-08-16 11:49] VITALS: BMI 25.9
[2019-08-16 19:39] VITALS: TEMP 98.6
[2019-08-16] MEDS: Atorvastatin Calcium 40 MG TAB PO SCH (20:08)
[2019-08-16 20:11] VITALS: BP 148/88
== END 2019-08-16 20:16 | disposition home or self-care (01) | DRG 640 ==
LOC: ERS 00:03 → 2SE 03:50 → OBSVTOIN 03:50
PROVIDERS: ADMIT Emergency Medicine; ATTEND Emergency Medicine
DX: E87.5 Hyperkalemia (principal); N18.6 End stage renal disease; I13.0 Hypertensive heart and chronic kidney disease with heart failure and stage 1 through stage 4 chronic kidney disease, or unspecified chronic kidney disease; G40.909 Epilepsy, unspecified, not intractable, without status epilepticus; E11.22 Type 2 diabetes mellitus with diabetic chronic kidney disease; E11.40 Type 2 diabetes mellitus with diabetic neuropathy, unspecified; I16.0 Hypertensive urgency; E11.649 Type 2 diabetes mellitus with hypoglycemia without coma; D63.1 Anemia in chronic kidney disease; F41.9 Anxiety disorder, unspecified; F32.9 Major depressive disorder, single episode, unspecified; Z88.0 Allergy status to penicillin; Z91.15 Patient's noncompliance with renal dialysis; Z79.4 Long term (current) use of insulin; Z89.421 Acquired absence of other right toe(s); Z56.0 Unemployment, unspecified
CPT/HCPCS: 36415; 36416; 71045; 80048; 80053; 80164; 80185; 83735; 85025; 90471; 90670; 93005; G0009; J0360; J1610; J1815; Q5105

== ENCOUNTER 2019-08-19 09:48 | Outpatient (CLI) | payer MEDICARE ==
--- NOTE | 2019-08-19 09:04 | PRG ---
DATE OF SERVICE: 08/19/2019 SUBJECTIVE: Mr. Wilbert Ayala is a very pleasant 44-year-old gentleman, who presents to the wound center for evaluation of pain over the plantar surface of the right foot. The patient states that he experiences pain of the plantar surface of his right foot when placing pressure over the plantar surface of the right foot with stepping onto his right foot. The patient reports the presence of calluses over the plantar surface of the right and left feet. The patient states that he has been ambulating more. The patient has no other complaints today. He denies any fever or chills. PHYSICAL EXAMINATION: VITAL SIGNS: Temperature 97.8, pulse 79, respirations 17, and blood pressure 123/67. Accu-Chek 109. EXTREMITIES: A callus is present over the plantar surface of the right foot. A callus is also present over the plantar surface of the left forefoot. The callus over the plantar surface of the right forefoot was excised with an excisional partial thickness debridement with the use of scissors. The callus over the plantar surface of the left forefoot was also excised revealing the presence of a wound inferior to the callus. Granulation tissue is present within the wound margins. Nonviable tissue present within the wound margins was debrided with an excisional full-thickness debridement with the use of scissors. No purulent drainage is associated with the wound. No erythema of the skin surrounding the wound is present. No maceration of the skin of the periwound is noted. A dorsalis pedis pulse is palpable on the right and on the left. No significant edema of the right or left foot is present on exam today. ASSESSMENT AND PLAN: 1. Callus of plantar surface of right forefoot. As stated above, the callus was excised with an excisional partial thickness debridement with the use of scissors in clinic today. The callus over the plantar surface of the left forefoot was excised revealing the presence of an ulceration, which was debrided with an excisional full-thickness debridement with the use of scissors in clinic today. The patient has been asked to return to clinic in 1 week, so that he may be seen by the prover. I have explained to the patient that new shoes and inserts or new inserts alone may provide for more optimal offloading of the plantar surface of the right forefoot and left forefoot. I will also see Mr. Ayala again at the time of his visit in 1 week. 2. Diabetes mellitus. The patient's Accu-Chek in clinic today is 109. The patient has been reminded that for optimal wound healing his blood glucoses should remain below 150. 3. Hypertension. 4. End-stage renal disease. 5. Seizure disorder. Job ID: [id number]
== END 2019-08-19 09:49 | disposition home or self-care (01) ==
LOC: WCC 09:48
PROVIDERS: ATTEND Family Medicine
DX: E11.621 Type 2 diabetes mellitus with foot ulcer (principal); L97.529 Non-pressure chronic ulcer of other part of left foot with unspecified severity; I12.9 Hypertensive chronic kidney disease with stage 1 through stage 4 chronic kidney disease, or unspecified chronic kidney disease; E11.22 Type 2 diabetes mellitus with diabetic chronic kidney disease; N18.9 Chronic kidney disease, unspecified; R56.9 Unspecified convulsions

== ENCOUNTER 2019-09-02 09:25 | Outpatient (CLI) | payer MEDICARE ==
--- NOTE | 2019-09-02 08:53 | PRG ---
DATE OF SERVICE: 09/02/2019 HISTORY: Mr. Wilbert Ayala is a very pleasant 44-year-old gentleman, who presents to the wound center for evaluation of pain over the plantar surface of the right foot. The patient states that he experiences pain of the plantar surface of his right foot when placing pressure over the plantar surface of the right foot with stepping onto his right foot. The patient reports the presence of calluses over the plantar surface of the right and left feet. The patient has no other complaints today. He denies any fever or chills. OBJECTIVE: VITAL SIGNS: Temperature 98.2, pulse 84, blood pressure 189/98. Accu-Chek 109. EXTREMITIES: A callus is present over the plantar surface of the right foot. A callus is also present over the plantar surface of the left forefoot. The callus over the plantar surface of the right forefoot was excised with an excisional partial thickness debridement with the use of scissors. ASSESSMENT AND PLAN: 1. Callus of plantar surface of right forefoot. The patient also has a callus of the plantar surface of the left forefoot. As stated above, the callus over the plantar surface of the right forefoot was debrided with an excisional partial thickness debridement with the use of scissors in clinic today. Mr. Ayala will return to clinic on an as-needed basis for trimming of the callus of the plantar surface of the right forefoot or the callus of the plantar surface of the left forefoot. 2. Diabetes mellitus. The patient's Accu-Chek in clinic today is 109. 3. Hypertension. 4. End-stage renal disease. 5. Seizure disorder. Job ID: [id number]
[2019-09-02] MEDS ORDERED: Sodium Chloride 0.9% 15 ML NEB ONE (13:02)
[2019-09-02] MEDS ORDERED: Lidocaine 2% PF 100 mg/5 ml Syringe ONE (13:02)
== END 2019-09-02 09:26 | disposition home or self-care (01) ==
LOC: WCC 09:25
PROVIDERS: ATTEND Family Medicine
DX: L84 Corns and callosities (principal); G40.909 Epilepsy, unspecified, not intractable, without status epilepticus; I12.0 Hypertensive chronic kidney disease with stage 5 chronic kidney disease or end stage renal disease; E11.22 Type 2 diabetes mellitus with diabetic chronic kidney disease; N18.6 End stage renal disease
CPT/HCPCS: A4218; J2001

== ENCOUNTER 2019-11-02 23:50 | Inpatient (IN) | payer MEDICARE, SELFPAY ==
[2019-11-03] MEDS ORDERED: Rocuronium Bromide 10 MG/ML (10ML VIAL) ONE (00:03)
[2019-11-03 00:04] LABS: Actual Bicarbonate (HCO3a) 15.5 mEq/L (22-28); Analyzer IN Cardio ER; Base Excess (BEa) -6.8 mEq/L (-2.0 to +3.0); Calcium, Ionized 1.23 mmol/L (1.12-1.30); Carboxyhemoglobin (COHb) 0.3 gm% (0.0-3.0); Hemoglobin (Hb) 10.2 g/dL (14.0-18.0); O2 Tension (PaO2) 276.8 mmHg (80.0-100.0); Potassium - ABG Lab 6.39 mmol/L (3.70-5.30); pH, Arterial 7.46 (7.35-7.45)
[2019-11-03] MEDS ORDERED: Dextrose 50% Abboject 50 ML SYRINGE ONE ×2 (00:06→02:39)
[2019-11-03] MEDS ORDERED: Insulin Regular 300 UNITS/3 ML VIAL ONE (00:10)
[2019-11-03] MEDS ORDERED: Calcium Chloride 1 GM/10 ML Abboject SYRINGE ONE ×2 (00:11→02:45)
[2019-11-03] MEDS ORDERED: Insulin Regular 100 units/100 ml in NS IVPB SCH (00:15)
[2019-11-03 00:17] LABS: #Basophils 0.1 thou/uL (0.0-0.2); #Eosinphils 0.1 thou/uL (0.0-0.7); #Lymphocytes 2.8 thou/uL (1.20-3.40); #Monocytes 0.3 thou/uL (0.11-0.59); #Neutrophils 2.3 thou/uL (1.40-6.50); %Basophils 1.5 % (0.0-1.0); %Eosinophils 1.5 % (0.0-10.0); %Lymphocytes 49.4 % (21.0-51.0); %Neutrophils 41.6 % (42.0-75.0); Hemoglobin 9.6 g/dL (14.0-18.0); Mean Corpuscular HGB CONC 34.7 g/dL (32.0-36.0); Mean Corpuscular Hemoglobin 35.2 pg (27.0-31.0); Mean Platelet Volume 7.4 fL (7.4-10.4); Platelet Count 143 thou/uL (130-400); RBC Distribution Width 13.2 % (11.5-14.5); Red Blood Cell (RBC) Count 2.71 mill/uL (4.70-6.10); White Blood Cell (WBC) Count 5.6 thou/uL (4.8-10.8)
[2019-11-03 00:22] LABS: ALV-art Gradient 123.375 (0-20); CO2 Tension 22.1 mmHg (35.0-45.0); Puncture Site RRADIAL
[2019-11-03 00:34] LABS: ALT (SGPT) 55 U/L (8-55); AST (SGOT) 49 U/L (5-34); Albumin 3.8 g/dL (3.5-5.0); Alkaline Phosphatase 128 U/L (40-110); Anion Gap 28 mmol/L (10-20); BUN (Urea Nitrogen) 89 mg/dL (8.9-20.6); Bilirubin, Total 0.4 mg/dL (0.2-1.2); Calc. Creatinine Clearance 0 mL/min (70-130); Calcium 9.9 mg/dL (7.8-10.44); Carbon Dioxide 17 mmol/L (22-29); Chloride 101 mmol/L (98-107); Estimated GFR-MDRD 4; Globulin 2.6 g/dL (2.4-3.5); Protein, Total 6.4 g/dL (6.0-8.3); Sodium 139 mmol/L (136-145)
[2019-11-03] MEDS ORDERED: Fentanyl 100 MCG/2 ML VIAL ONE (00:34)
[2019-11-03] MEDS ORDERED: fentaNYL Citrate/PF 2,000 MCG in Sodium Chloride 0.9% 60 ML IV SCH ×2 (00:35→02:30)
[2019-11-03 00:39] LABS: Actual Bicarbonate (HCO3a) 20.5 mEq/L (22-28); Analyzer IN Cardio ER; Base Excess (BEa) -6.4 mEq/L (-2.0 to +3.0); CO2 Tension 46.9 mmHg (35.0-45.0); Calcium, Ionized 1.31 mmol/L (1.12-1.30); Carboxyhemoglobin (COHb) 0.3 gm% (0.0-3.0); Hemoglobin (Hb) 10.4 g/dL (14.0-18.0); O2 Tension (PaO2) 208.3 mmHg (80.0-100.0); pH, Arterial 7.26 (7.35-7.45)
[2019-11-03 00:39] LABS: Glucose 163 mg/dL (70-105); Potassium 7.4 mmol/L (3.5-5.1)
[2019-11-03 00:41] LABS: ALV-art Gradient 18.275 (0-20); Puncture Site RBRACHIAL
[2019-11-03] MEDS ORDERED: Sodium Bicarb 50 MEQ/50 ML VIAL ONE (00:54)
[2019-11-03 00:56] LABS: CKMB 3.3 ng/mL (0-6.6)
[2019-11-03] MEDS ORDERED: Propofol 1,000 MG/100 ML VIAL IV ONE (01:07)
[2019-11-03 01:52] LABS: Bilirubin Negative (Negative); Blood, Urine 1+ (Negative); Clarity Turbid (Clear); Glucose, Urine (Dipstick) 150 mg/dL (Negative); Leukocyte 75 Leu/uL (Negative); Nitrite Negative (Negative); Protein, Urine (Dipstick) 200 mg/dL (Neg-Trace); Squamous Epithelial 0-3 HPF (0-3); Urobilinogen Normal mg/dL (Less than 2)
[2019-11-03 01:53] LABS: Bacteria/HPF 1+ HPF (None Seen); Sperm/HPF 3+ HPF (None Seen)
--- NOTE | 2019-11-03 02:12 | PDOC.FPRHP ---
- History of Present Illness Chief Complaint: Cardiac Arrest, hyperkalemia History of Present Illness: 44yo male with h/o ESRD, DMII, seizure disorder who presented s/p cardiac arrest and ROSC x3. Patient intubated, sedated on time of exam, history obtained from ex- who is MPOA as well as ERMD and documentation. Per ex-, he was complaining of fatigue and muscle pain at night, went to lie down. Did not take home night medications. Missed dialysis on Friday. Noncompliant with home medications. Granddaughter noted he was "snoring loudly. " Ex- went to go check on him and he was unresponsive. She tried sternal rub with no response and no pulse. Called EMS. Immediately started CPR, states went through about 10 rounds of CPR prior to EMS arrival, approx 10min. From documentation and ERMD report, EMS arrived and continued CPR. Pt had ROSC initially, then arrested again. ROSC x2. Then PEA with Vtach subsequent defib. ROSC with bradycardy to 44. LMA placed, transported to [facility]. In ED intubated and L subclavian placed. ABG with elevated Potassium confirmed to be 7.4 on CMP. Given amp Bicarb, CaCl, D50, Insulin 20u sc. Nephro called for emergent dialysis. ED Course: Per above - Allergies/Adverse Reactions Allergies Allergy/AdvReac Type Severity Reaction Status Date / Time No Allergy Information Allergy Unverified 11/03/19 00:11 Available - Home Medications Medication Instructions Recorded Confirmed Type Aspirin [Ecotrin] 81 mg PO DAILY 11/03/19 11/03/19 History Atorvastatin Calcium 40 mg PO DAILY 11/03/19 11/03/19 History Carvedilol [Coreg] 3.125 mg PO BID 11/03/19 11/03/19 History Cholecalciferol (Vitamin D3) 2,000 unit PO DAILY 11/03/19 11/03/19 History [Vitamin D3] Epoetin Murali-Epbx [Retacrit] 7,500 unit SC Q7D 11/03/19 11/03/19 History Lisinopril 5 mg PO DAILY 11/03/19 11/03/19 History Phenytoin Sodium Extended 400 mg PO HS 11/03/19 11/03/19 History [Dilantin ER] Sertraline HCl [Zoloft] 100 mg PO DAILY 11/03/19 11/03/19 History hydrALAZINE [Apresoline] 50 mg PO TID 11/03/19 11/03/19 History levETIRAcetam [Keppra] 500 mg PO BID 11/03/19 11/03/19 History traMADol HCl [Tramadol HCl] 50 mg PO BID 11/03/19 11/03/19 History - History PMHx: DMII, Hx of AVM bleed s/p craniectomy with seizure disorder, HTN, ESRD (M, W,F) - Dr. Shin, anemia, CHF PSHx: Craniotomy in 2016 for AVM bleed, R fifth toe amputation FHx: noncontributory Social: denies smoking, drinking, alcohol, lives with , sister and brother - Review of Systems ROS unobtainable: due to endotracheal tube - Vital signs BP: 134/77 HR: 82 RR: 14 Tmax: 95 Pox: 100% on Vent Wt: 82kg - Physical Exam Constitutional: other (intubated, sedated) HEENT: other (pinpoint pupils, minimally reactive to light. ETT in place) Neck: other (L subclavian, mild bleeding from site) Heart: RRR, normal S1/S2, no murmurs/rubs/gallops, pulses present, no edema Lungs: CTAB, no respiratory distress, good air movement, no rales/rhonchi, no wheezing Abdomen: soft, bowel sounds present, no masses/distention Musculoskeletal: normal structure, normal tone, other (R fifth toe amp) Neurological: other (myoclonic jerks vs seizure, intermittent BL muscle twitching) Skin: other (mottling of skin) FMR H&P: Results - Labs Result Diagrams: 11/03/19 00:06 11/03/19 00:06 Lab results: WBC 5.6 thou/uL (4.8-10.8) 11/03/19 00:06 Hgb 9.6 g/dL (14.0-18.0) L 11/03/19 00:06 Hct 27.5 % (42.0-52.0) L 11/03/19 00:06 MCV 101.0 fL (78.0-98.0) H 11/03/19 00:06 Plt Count 143 thou/uL (130-400) 11/03/19 00:06 Neutrophils % 41.6 % (42.0-75.0) L 11/03/19 00:06 ABG pH 7.26 (7.35-7.45) L 11/03/19 00:35 ABG pCO2 46.9 mmHg (35.0-45.0) H 11/03/19 00:35 ABG pO2 208.3 mmHg (80.0-100.0) H 11/03/19 00:35 Sodium 139 mmol/L (136-145) 11/03/19 00:06 Potassium 7.4 mmol/L (3.5-5.1) H* 11/03/19 00:06 Chloride 101 mmol/L (98-107) 11/03/19 00:06 Carbon Dioxide 17 mmol/L (22-29) L 11/03/19 00:06 BUN 89 mg/dL (8.9-20.6) H 11/03/19 00:06 Creatinine 13.24 mg/dL (0.7-1.3) H 11/03/19 00:06 Glucose 163 mg/dL (70-105) H 11/03/19 00:06 Lactic Acid 4.3 mmol/L (0.5-2.2) H* 11/03/19 00:06 Calcium 9.9 mg/dL (7.8-10.44) 11/03/19 00:06 Total Bilirubin 0.4 mg/dL (0.2-1.2) 11/03/19 00:06 AST 49 U/L (5-34) H 11/03/19 00:06 ALT 55 U/L (8-55) 11/03/19 00:06 Alkaline Phosphatase 128 U/L (40-110) H 11/03/19 00:06 CK-MB (CK-2) 3.3 ng/mL (0-6.6) 11/03/19 00:06 B-Natriuretic Peptide 1416.5 pg/mL (0-100) H 11/03/19 00:06 Serum Total Protein 6.4 g/dL (6.0-8.3) 11/03/19 00:06 Albumin 3.8 g/dL (3.5-5.0) 11/03/19 00:06 Urine Ketones Negative mg/dL (Negative) 11/03/19 01:30 Urine Blood 1+ (Negative) A 11/03/19 01:30 Urine Nitrite Negative (Negative) 11/03/19 01:30 Ur Leukocyte Esterase 75 Darrell/uL (Negative) A 11/03/19 01:30 Urine RBC 11-20 HPF (0-3) A 11/03/19 01:30 Urine WBC 11-20 HPF (0-3) A 11/03/19 01:30 Ur Squamous Epith Cells 0-3 HPF (0-3) 11/03/19 01:30 Urine Bacteria 1+ HPF (None Seen) A 11/03/19 01:30 - EKG Interpretation EKG: Peaked T waves, L axis dev, no St or T wave changes, NSR. Qide QRS to 136 FMR H&P: A/P - Problem List (1) Cardiac arrest Current Visit: Yes Status: Acute Code(s): I46.9 - CARDIAC ARREST, CAUSE UNSPECIFIED (2) Hyperkalemia Current Visit: Yes Status: Acute Code(s): E87.5 - HYPERKALEMIA (3) ESRD (end stage renal disease) Current Visit: Yes Status: Acute Code(s): N18.6 - END STAGE RENAL DISEASE (4) DMII (diabetes mellitus, type 2) Current Visit: Yes Status: Acute (5) HTN (hypertension) Current Visit: Yes Status: Acute Code(s): I10 - ESSENTIAL (PRIMARY) HYPERTENSION (6) Seizure disorder Current Visit: Yes Status: Acute Code(s): G40.909 - EPILEPSY, UNSP, NOT INTRACTABLE, WITHOUT STATUS EPILEPTICUS - Plan 44yo male with h/o ESRD on dialysis MWF, DMII, HTN, Seizure disorder #ROSC s/p cardiac arrest 2/2 severe hyperkalemia - ROSC x 3 different by EMS, total time of arrest unclear - K 7.4 at presentation, suspect 2/2 missed dialysis - s/p calcium carbonate, D50, insulin and bicarb in ED - Nephrology consulted for emergent dialysis; known to Dr. Shin - Initiated post-resuscitation cooling protocol - EKG showed peaked twaves, wide QRS - Due to delay in dialysis, patient's vital signs again became unstable upon arrival up to CCU and patient required additional calcium chloride (x1), amp of D50 and 10 of regular insulin SC - Admit to CCU, will consult Pulmonology - Will repeat EKG after dialysis, order placed - Will check Mg and Phosphorus and q4h BMP - Blood and urine cultures pending #Anion gap metabolic acidosis 2/2 uremia and lactic acidosis - BUN 89, Cr 13.24, Lactic acid 4.3 - will trend - Anion gap 21 - Patient receiving emergent dialysis, Nephrology consulted #Elevated troponin due to ESRD and cardiac arrest s/p ROSC - will trend trops and repeat EKG s/p dialysis #Seizure disorder - Hx of AVM bleed s/p craniectomy - Keppra and dilantin levels pending - Will load with fosphenytoin and continue home meds - Will change keppra from 500 mg BID to 1000 mg qd to account for HD - myotonic jerks on exam, unclear seizure vs 2/2 anoxic brain injury, will cont to monitor, consider EEG in AM #Possible UTI - 75 LE, 11-20 WBC, 1+ bacteria - Ceftriaxone x1, will await urine cultures - Of note, clinic records show patient has severe penicillin allergy, he did not have reaction to ceftriaxone but would be mindful of allergy going forward #Elevated BNP - BNP 1400, Echo 10/2018 EF 50-55% with no mention of diastolic dysfunction - Will order echo to further evaluate #Macrocytic anemia - MCV 101, Hb 9.6 - Will check B12 and folate #ESRD on HD MWF - Noncompliant with HD - See above #DM type II, uncontrolled - Hyperglycemia protocol - q2h accuchecks #HTN - PRN meds for SBP >180 - Can restart BP meds once patient more stable PCP: [facility] Code: Full - discussed with ex- at bedside who is MPOA DVT PPX: SCD's; patient high risk for bleeds given history of AVM GI PPX: Pepcid IVF: SL Diet: NPO Lines: L subclavian Gtt: Propofol for sedation FMR H&P: Upper Level - Pertinent history 44 year old male presents after having cardiac arrest with ROSC achieved. Per ex , patient was complaining of fatigue, muscle pain. He then laid down and grandaughter heard him snoring initially. She went to check on him and patient was foaming at the mouth. Ex , who is a nurse, was called into the room and immediately started CPR. She estimates that she did approximately 10 rounds of CPR. EMS states that they achieved ROSC on three separate occasions. The final episode was PEA and patient received a shock. An LMA was then placed in the field. On arrival to ED, patient was intubated, a left subclavian was placed, and labs were obtained. Patient is ESRD on HD MWF. He missed dialysis on Friday, and family reports non-compliance with dialysis. Potassium noted to be 7.4. EKG performed which showed peaked t waves. An amp of calcium carbonate, 20 units of insulin, and an amp of D50 were given. Nephrology was then called for emergent dialysis. Unable to get ahold of promotions executive producer commissioner of internal revenue, so ED called patient's primary commissioner of internal revenue, Dr. Shin who agreed to the emergent dialysis and called in orders to get it done. Unfortunately, the dialysis machine was being used on another emergent dialysis case and dialysis was delayed longer than it should have been given patient's condition. Calcium chloride, amp of D50, and 10 units of regular insulin were given to patient upon arrival to CCU as dialysis had not been initiated yet, and patient's vital signs were becoming unstable. Patient has a history of seizures 2/2 craniotomy from AV malformation bleed in 2016. Uncertain whether he has been taking his seizure medications and he appears to have jerking movements during evaluation. Uncertain if these are seizures or myoclonic jerks from anoxia. Patient initially placed on fentanyl drip in ED, but changed to propofol drip on arrival to CCU. Patient has uncontrolled DM. He has been admitted to our service for DKA in the past. - Pertinent findings General: Sedated and on ventilator. HEENT: Pupils pinpoint and minimally reactive to light. Skin: Bilateral lower extremities mottled and cyanotic. Skin cool to touch. Card: RRR, No appreciable murmurs. Resp: CTA, sedated and on ventilator, satting 100% Abdomen: Soft, bowel sounds present Neuro: Difficult to assess as patient sedated. No purposeful movement. Patient with jerking movements, possibly myoclonic jerks vs. seizures. Ext: No edema. Cyanosis of bilateral lower extremities. - Plan Date/Time: 11/03/19211 I, Nimisha Mayo, have evaluated this patient and agree with findings/plan as outlined by internet technology manager resident. Pertinent changes/additions are listed here. ROSC s/p cardiac arrest 10/17 severe hyperkalemia - ROSC achieved on 3 different occasions - s/p calcium carbonate, D50, insulin and bicarb - Nephrology consulted for emergent dialysis; dialysis delayed as they only had one machine and another patient was receiving emergent dialysis - Will initiate post-resuscitation cooling protocol - EKG showed peaked twaves, wide QRS - Due to delay in dialysis, patient's vital signs again became unstable upon arrival up to CCU and patient required additional calcium chloride (x1), an amp of D50 and 10 of regular insulin. - Will consult Pulmonology - Will repeat EKG after dialysis, order placed - Will check Mg and Phosphorus - Blood and urine cultures pending Anion gap metabolic acidosis / uremia - BUN 89, Cr 13.24 - Anion gap 21 - Patient receiving emergent dialysis - Nephrology consulted 11/03 Lactic acidosis - 2 cardiac arrest and uremia - Trend Elevated troponin due to underlying cause - 2 cardiac arrest and ESRD - Trend ESRD on HD MWF - Noncompliant with HD - See above Elevated BNP - Echo 10/2018 EF 50-55% with no mention of diastolic dysfunction - Will order echo to further evaluate - BNP 1400 Macrocytic anemia - MCV 101 - Hg 9.6, Hct 27.5 - Will check B12 and folate given macrocytosis - Likely contributing factor ESRD - Uncertain if alcohol abuse Transaminitis likely due to recent cardiac arrest - AST 49, trend DM type II, uncontrolled - Hyperglycemia protocol - q2h accuchecks Hx of AVM bleed s/p craniectomy with seizure disorder - Keppra and dilantin levels pending - Will load with fosphenytoin and continue home meds - Will change keppra from 500 mg BID to 1000 mg qd to account for HD HTN - PRN meds for SBP >180 - Can restart BP meds once patient more stable CHF - BNP 1400 - Trop 0.029 Possible UTI - 75 LE, 11-20 WBC, 1+ bacteria - Ceftriaxone x1, will await urine cultures - Of note, clinic records show patient has severe penicillin allergy, he did not have reaction to ceftriaxone but would be mindful of allergy going forward DVT PPX: SCD's; patient high risk for bleeds given history of AVM GI PPX: Pepcid Code Status: Full code; discussed with ex- who is patient's MPOA Dispo: Admit to CCU. Anticipate LOS >48 hours.
[2019-11-03] MEDS ORDERED: Morphine 2 MG/ML SYRINGE SLOW IVP PRN (02:30)
[2019-11-03] MEDS ORDERED: Fentanyl BOLUS 250 ML IVPB PRN (02:30)
[2019-11-03] MEDS ORDERED: DISCONTINUE PREVIOUS NARCOTIC PAIN MEDICATIONS AND BENZODIAZEPINES FS SCH (02:30)
[2019-11-03] MEDS ORDERED: Lorazepam 2 MG/ML VIAL SLOW IVP PRN (02:30)
[2019-11-03] MEDS ORDERED: Propofol BOLUS 1,000 MG/100 ML VIAL IV PRN (02:30)
[2019-11-03] MEDS ORDERED: HumaLOG 300 UNITS/3 ML VIAL SC PRN ×2 (02:54)
[2019-11-03] MEDS ORDERED: Ventilator Sedation Protocol 1 EACH FS SCH (02:54)
[2019-11-03] MEDS ORDERED: Dextrose 5% in Water 1,000 ML IV PRN (02:54)
[2019-11-03] MEDS ORDERED: Dextrose 50% Abboject 50 ML SYRINGE SLOW IVP PRN ×2 (02:54→03:06)
[2019-11-03] MEDS ORDERED: cefTRIAXone\\ROCEPHIN 1 GM in Sodium Chloride 0.9% 100 ML IVPB SCH (03:00)
[2019-11-03] MEDS ORDERED: hydrALAZINE 20 MG/ML VIAL SLOW IVP PRN (03:06)
[2019-11-03 03:11] LABS: Lactic Acid 1.8 mmol/L (0.5-2.2)
[2019-11-03] MEDS ORDERED: Insulin Regular 300 UNITS/3 ML VIAL SC SCH (03:15)
[2019-11-03] MEDS ORDERED: FOSPHENYTOIN SODIUM IVPB SCH ×2 (03:15→03:30)
[2019-11-03] MEDS ORDERED: SODIUM CHLORIDE 0.9% IVPB SCH ×2 (03:15→03:30)
[2019-11-03] MEDS ORDERED: Calcium Chloride 1 GM/10 ML Abboject SYRINGE IVP SCH (03:15)
[2019-11-03 03:26] LABS: Troponin I 0.243 ng/mL (< 0.028)
[2019-11-03] MEDS ORDERED: levETIRAcetam 500 MG TAB PO SCH ×3 (03:30→09:00)
[2019-11-03] MEDS ORDERED: Dextrose 50% Abboject 50 ML SYRINGE SLOW IVP SCH (03:30)
[2019-11-03 03:39] LABS: Magnesium 2.9 mg/dL (1.6-2.6); Phosphorus 5.3 mg/dL (2.3-4.7)
[2019-11-03 04:29] LABS: Dilantin 5.2 ug/mL (10.0-20.0)
[2019-11-03 05:54] LABS: Troponin I 0.541 ng/mL (< 0.028)
[2019-11-03] MEDS ORDERED: niCARdipine 25 MG in Sodium Chloride 0.9% 250 ML 240 ML IVPB SCH (07:15)
[2019-11-03 07:21] LABS: Actual Bicarbonate (HCO3a) 26.5 mEq/L (22-28); Base Excess (BEa) 2.8 mEq/L (-2.0 to +3.0); CO2 Tension 37.3 mmHg (35.0-45.0); Calcium, Ionized 1.15 mmol/L (1.12-1.30); Carboxyhemoglobin (COHb) 0.4 gm% (0.0-3.0); Hemoglobin (Hb) 10.1 g/dL (14.0-18.0); O2 Tension (PaO2) 247.2 mmHg (80.0-100.0); Potassium - ABG Lab 4.36 mmol/L (3.70-5.30); pH, Arterial 7.47 (7.35-7.45)
[2019-11-03 07:23] LABS: Anion Gap 20 mmol/L (10-20); BUN (Urea Nitrogen) 33 mg/dL (8.9-20.6); Calc. Creatinine Clearance 20 mL/min (70-130); Carbon Dioxide 26 mmol/L (22-29); Chloride 98 mmol/L (98-107); Estimated GFR-MDRD 11; Glucose 93 mg/dL (70-105); Potassium 4.4 mmol/L (3.5-5.1); Sodium 140 mmol/L (136-145)
[2019-11-03] MEDS: Vecuronium 10 MG VIAL IV PRN ×8 (07:30→22:23)
--- NOTE | 2019-11-03 07:37 | RAD ---
Portable frontal chest radiograph: 11/03/2019 COMPARISON: 08/15/2019 HISTORY: Chest pain FINDINGS: Endotracheal tube, nasogastric tube, and left-sided vascular catheter in proper position. T here is prominence of the cardiac silhouette. The right hemidiaphragm is elevated. Supine imaging is provided, limiting assessment for pneumothorax and pleural fluid. There is hazy increased density in the right perihilar/infrahilar region, which may represent infiltrate or volume loss. IMPRESSION: Lines and tubes as detailed above. Nonspecific hazy increased density in the right infrah ilar/perihilar region.
[2019-11-03 08:06] LABS: ALV-art Gradient 62.675 (0-20)
[2019-11-03] MEDS: Famotidine/PF 20 mg/2ml Vial SLOW IVP SCH (08:45)
[2019-11-03] MEDS: Lorazepam 2 MG/ML VIAL SLOW IVP PRN (08:45)
[2019-11-03] MEDS ORDERED: levETIRAcetam In NaCl (Iso-Os) 1,000 MG in Premix Bag 1 BAG IVPB SCH (09:00)
[2019-11-03] MEDS ORDERED: Prevnar 13-Val Conj/PF 0.5 ML SYRINGE IM ONE (09:00)
[2019-11-03] MEDS ORDERED: FLU VACC QS2019-20(6MOS UP)/PF 60 MCG/0.5 ML SYRINGE IM ONE (09:00)
[2019-11-03 09:04] LABS: #Monocytes 0.8 thou/uL (0.11-0.59); #Neutrophils 8.1 thou/uL (1.40-6.50); %Basophils 0.2 % (0.0-1.0); %Eosinophils 0.3 % (0.0-10.0); %Lymphocytes 10.4 % (21.0-51.0); %Monocytes 8.1 % (0.0-10.0); Hemoglobin 10.5 g/dL (14.0-18.0); Mean Corpuscular HGB CONC 33.5 g/dL (32.0-36.0); Mean Corpuscular Hemoglobin 34.1 pg (27.0-31.0); Mean Platelet Volume 7.1 fL (7.4-10.4); Platelet Count 152 thou/uL (130-400); RBC Distribution Width 13.2 % (11.5-14.5); Red Blood Cell (RBC) Count 3.08 mill/uL (4.70-6.10)
[2019-11-03 09:12] LABS: PTT 26.6 SEC (22.9-36.1); Prothrombin Time 13.2 SEC (12.0-14.7)
[2019-11-03] MEDS: levETIRAcetam In NaCl (Iso-Os) 1,000 MG in Premix Bag 1 BAG IVPB SCH (09:22)
[2019-11-03 09:27] LABS: Anion Gap 21 mmol/L (10-20); BUN (Urea Nitrogen) 37 mg/dL (8.9-20.6); Calc. Creatinine Clearance 15 mL/min (70-130); Calcium 10.1 mg/dL (7.8-10.44); Carbon Dioxide 26 mmol/L (22-29); Chloride 98 mmol/L (98-107); Estimated GFR-MDRD 8; Glucose 146 mg/dL (70-105); Magnesium 2.1 mg/dL (1.6-2.6); Phosphorus 5.4 mg/dL (2.3-4.7); Potassium 5.3 mmol/L (3.5-5.1); Sodium 140 mmol/L (136-145)
--- NOTE | 2019-11-03 09:34 | CON ---
DATE OF CONSULTATION: 11/03/2019 TIME SPENT: This is 45 minutes Critical Care time. CONSULTING PHYSICIAN: [facility]. REASON FOR CONSULTATION: Critical Care management. HISTORY OF PRESENT ILLNESS: This is a 44-year-old male, who had a witnessed [id number] arrest with approximately 15 minutes of downtime. It sounds like his initial rhythm may have been pulseless electrical activity. He went through 10 rounds of CPR and was intubated in the field. At some point, he developed ventricular tachycardia and required defibrillation. He is now on mechanical ventilation. Cannot respond as he is currently in therapeutic hypothermia. PAST MEDICAL HISTORY: 1. Diabetes mellitus, type 2. 2. Chronic kidney disease, stage 5, requiring 3 times weekly hemodialysis. 3. Arteriovenous malformation bleed. 4. Seizure disorder. 5. Anemia. 6. Congestive heart failure, diastolic. PAST SURGICAL HISTORY: 1. Craniotomy in 2016, for AVM. 2. Right fifth toe amputation. FAMILY MEDICAL HISTORY: Unremarkable. SOCIAL HISTORY: Nonsmoker. Does not consume alcohol. Does not use illicit drugs. MEDICATIONS PRIOR TO ADMISSION: 1. Aspirin. 2. Atorvastatin. 3. Coreg. 4. Cholecalciferol. 5. Epogen. 6. Lisinopril. 7. Phenytoin. 8. Sertraline. 9. Hydralazine. 10. Keppra. 11. Tramadol. REVIEW OF SYSTEMS: Cannot be obtained as the patient is currently on mechanical ventilation. PHYSICAL EXAMINATION: VITAL SIGNS: Heart rate 74, blood pressure 194/98, O2 saturation 100%, respiratory rate 24. NEUROLOGIC: His pupils are 4 mm, not reactive to light. No oculocephalic reflex that I can detect. No gag reflex. He does have some submental movement. He has some shivering noted in his extremities. NECK: No adenopathy or JVD. LUNGS: Clear anteriorly. CARDIOVASCULAR: S1 and S2. Regular. ABDOMEN: Soft. He has old laparoscopy scars. EXTREMITIES: No clubbing or cyanosis. He has a right fifth toe amputation. LABORATORY DATA: White blood cell count 5.6, hemoglobin 9.6, hematocrit 27.5, platelet count 143. A pH 7.47, pCO2 of 37, pO2 of 242 on SIMV rate 18, tidal volume 500, PEEP 5, pressure support 10, FiO2 of 50%. Sodium 140, potassium 4.4, chloride 98, CO2 of 26, BUN 33, creatinine 5.5, glucose 93. Troponin 0.54. Of note, his initial chemistry when he presented had potassium 7.4, BUN 89, and creatinine 13.2. IMAGING STUDIES: Chest x-ray shows good endotracheal tube position without obvious mass, effusion, or infiltrate. Does have cardiomegaly. ASSESSMENT: 1. Status post cardiac arrest. I think the etiology was probably hyperkalemia related to his renal failure, and I suspect he has been noncompliant with dialysis. 2. Acute respiratory failure, requiring mechanical ventilation. 3. Chronic kidney disease, stage 5. 4. Diastolic heart dysfunction. 5. Hypertension with poor control. PLAN: 1. Leave intubated. 2. Re-assess neurologic status once he begins to rewarm. 3. Vecuronium as needed for seizures. 4. Change medications to IV including his Keppra. 5. Nephrology input. Job ID: [id number]
--- NOTE | 2019-11-03 10:39 | CON ---
DATE OF CONSULTATION: HISTORY OF PRESENT ILLNESS: Mr. Ayala is a 44-year-old male with ESRD and was found to have a cardiac arrest at home. CPR was done and he was subsequently intubated on the field. He was found to have PEA and V-tach. Of interest, this patient missed dialysis on Friday. The possibility of hyperkalemia precipitating the cardiac arrest was considered. He was sent to the ER. At the ER, he was noted to be hyperkalemic. We did an emergent hemodialysis last night with this patient. His hemodynamic status stabilized at that time. We are now being consulted for further management of his ESRD. REVIEW OF SYSTEMS: Not obtainable since the patient is intubated on ventilator support. MEDICATIONS: The patient is status post ceftriaxone. Currently on, 1. Famotidine 20 mg IV daily. 2. Humalog sliding scale. 3. Levetiracetam 500 mg IV b.i.d. 4. Nicardipine drip. 5. Phenytoin 400 mg daily. 6. Propofol drip. PAST MEDICAL HISTORY: 1. ESRD from presumed diabetic nephropathy. 2. Status post seizure disorder. 3. Hypertension. 4. Hyperlipidemia. 5. Chronic anemia. 6. Status post subdural hematoma. PAST SURGICAL HISTORY: Status post craniotomy, status post AV fistula placement, status post cuffed hemodialysis catheter placement, and status post right fifth toe amputation. SOCIAL HISTORY: The patient is , lives with his . He lives in [place]. Currently, no smoking or alcohol intake. No IV drug abuse. Status post blood transfusion. Used to work with [employer]. Education, high school. ALLERGIES: UNKNOWN. TRAUMA: Status post fall with cranial injury. IMMUNIZATION: Up-to-date. HOSPITALIZATIONS: Please see past medical history. FAMILY HISTORY: No family history of ESRD. PHYSICAL EXAMINATION: VITAL SIGNS: Blood pressure 194/98, heart rate 72, respiratory rate 30, and O2 saturation 100%. GENERAL: The patient is sedated, intubated on ventilator support. SKIN: Adequate turgor. HEENT: He has pinkish conjunctivae. Anicteric sclerae. No neck mass. No carotid bruits. No JVD. CHEST: No deformities. LUNGS: Clear breath sounds. No wheezing. No crackles. HEART: Normal sinus rhythm. No murmur. No gallops. No rubs. ABDOMEN: Globular, soft, and nontender. No masses. EXTREMITIES: No edema. No deformities. MEDICATIONS: Medications of November 03, 2019, reviewed. LABORATORY DATA: November 03, 2019; sodium 140, potassium 4.4, chloride 98, carbon dioxide 26, BUN 33, creatinine 5.55, glucose 93, and calcium 10. November 03, 2019, 12:06 a.m.; potassium was 7.4, creatinine 13.2. DIAGNOSTIC DATA: November 02, 2019; chest x-ray shows increased lung markings. ASSESSMENT AND PLAN: 1. Status post cardiorespiratory arrest - most likely precipitated by his hyperkalemia. He underwent emergent hemodialysis early this morning. Potassium much improved. Hemodynamics is now also improved. The cardiac arrhythmia resolved with improvement of serum potassium. 2. End-stage renal disease - we will continue 3 times a week hemodialysis with this patient. There is no indication to repeat the hemodialysis today. We will re-evaluate him in a.m. 3. Overall agree with current management. Job ID: [id number]
[2019-11-03] MEDS ORDERED: Norepinephrine 8 MG/0.9% NS 250 ML IVPB SCH (11:51)
[2019-11-03 14:56] LABS: Anion Gap 17 mmol/L (10-20); BUN (Urea Nitrogen) 39 mg/dL (8.9-20.6); Calc. Creatinine Clearance 14 mL/min (70-130); Calcium 9.2 mg/dL (7.8-10.44); Carbon Dioxide 28 mmol/L (22-29); Chloride 98 mmol/L (98-107); Estimated GFR-MDRD 7; Glucose 156 mg/dL (70-105); Sodium 136 mmol/L (136-145)
[2019-11-03 15:11] LABS: Potassium 6.8 mmol/L (3.5-5.1)
[2019-11-03 15:54] LABS: #Monocytes 0.4 thou/uL (0.11-0.59); #Neutrophils 6.9 thou/uL (1.40-6.50); %Basophils 0.1 % (0.0-1.0); %Eosinophils 0.1 % (0.0-10.0); %Lymphocytes 11.7 % (21.0-51.0); %Neutrophils 83.2 % (42.0-75.0); Hemoglobin 9.9 g/dL (14.0-18.0); Mean Corpuscular HGB CONC 33.6 g/dL (32.0-36.0); Mean Corpuscular Hemoglobin 33.8 pg (27.0-31.0); Mean Platelet Volume 7.3 fL (7.4-10.4); Platelet Count 150 thou/uL (130-400); RBC Distribution Width 13.1 % (11.5-14.5); Red Blood Cell (RBC) Count 2.91 mill/uL (4.70-6.10); White Blood Cell (WBC) Count 8.3 thou/uL (4.8-10.8)
[2019-11-03 15:58] LABS: PTT 27.4 SEC (22.9-36.1)
[2019-11-03 15:59] LABS: Prothrombin Time 13.6 SEC (12.0-14.7)
[2019-11-03 16:12] LABS: Anion Gap 17 mmol/L (10-20); BUN (Urea Nitrogen) 40 mg/dL (8.9-20.6); Calc. Creatinine Clearance 13 mL/min (70-130); Calcium 9.1 mg/dL (7.8-10.44); Carbon Dioxide 28 mmol/L (22-29); Chloride 98 mmol/L (98-107); Estimated GFR-MDRD 7; Glucose 143 mg/dL (70-105); Magnesium 2.3 mg/dL (1.6-2.6); Phosphorus 5.2 mg/dL (2.3-4.7); Sodium 136 mmol/L (136-145)
[2019-11-03 16:16] LABS: Potassium 7.3 mmol/L (3.5-5.1)
[2019-11-03 16:19] LABS: Critical Call Chem Troponin I RESULT DECREASING
[2019-11-03 16:40] LABS: CKMB 16.7 ng/mL (0-6.6)
[2019-11-03 18:40] LABS: Anion Gap 17 mmol/L (10-20); BUN (Urea Nitrogen) 41 mg/dL (8.9-20.6); Calc. Creatinine Clearance 14 mL/min (70-130); Calcium 9.2 mg/dL (7.8-10.44); Carbon Dioxide 29 mmol/L (22-29); Chloride 98 mmol/L (98-107); Estimated GFR-MDRD 7; Glucose 131 mg/dL (70-105); Sodium 137 mmol/L (136-145)
[2019-11-03 18:43] LABS: Potassium 6.8 mmol/L (3.5-5.1)
[2019-11-03 21:39] LABS: PTT 26.9 SEC (22.9-36.1); Prothrombin Time 13.1 SEC (12.0-14.7)
[2019-11-03 22:00] LABS: Critical Call Chem Troponin I RESULT DECREASING
[2019-11-03 22:03] LABS: Anion Gap 14 mmol/L (10-20); BUN (Urea Nitrogen) 17 mg/dL (8.9-20.6); Band 24 % (5-11); Calc. Creatinine Clearance 31 mL/min (70-130); Calcium 9.5 mg/dL (7.8-10.44); Carbon Dioxide 31 mmol/L (22-29); Chloride 98 mmol/L (98-107); Eosinophils 1 % (0-10); Estimated GFR-MDRD 19; Glucose 90 mg/dL (70-105); Hemoglobin 11.1 g/dL (14.0-18.0); Lymphocytes 16 % (21-51); MDiff Complete? YES; Magnesium 2.1 mg/dL (1.6-2.6); Mean Corpuscular HGB CONC 34.2 g/dL (32.0-36.0); Mean Corpuscular Hemoglobin 34.6 pg (27.0-31.0); Mean Platelet Volume 7.1 fL (7.4-10.4); Monocytes 5 % (0-10); Neutrophil 54 % (42-75); Phosphorus 2.9 mg/dL (2.3-4.7); Platelet Count 158 thou/uL (130-400); Potassium 3.6 mmol/L (3.5-5.1); RBC Distribution Width 13.3 % (11.5-14.5); Sodium 139 mmol/L (136-145); White Blood Cell (WBC) Count 6.3 thou/uL (4.8-10.8)
[2019-11-03 22:29] LABS: CKMB 18.7 ng/mL (0-6.6)
[2019-11-03] MEDS: Propofol 1,000 MG/100 ML VIAL IV PRN (23:43)
[2019-11-04] MEDS: Lorazepam 2 MG/ML VIAL SLOW IVP PRN (00:19)
[2019-11-04] MEDS: Vecuronium 10 MG VIAL IV PRN ×2 (01:11→05:28)
[2019-11-04] MEDS: Propofol 1,000 MG/100 ML VIAL IV PRN (04:05)
[2019-11-04 05:18] LABS: INR-International Normal Ratio 1.1; PTT 29.6 SEC (22.9-36.1); Prothrombin Time 13.8 SEC (12.0-14.7)
[2019-11-04 05:26] LABS: ALT (SGPT) 50 U/L (8-55); AST (SGOT) 41 U/L (5-34); Albumin 4.1 g/dL (3.5-5.0); Alkaline Phosphatase 121 U/L (40-110); Anion Gap 18 mmol/L (10-20); BUN (Urea Nitrogen) 21 mg/dL (8.9-20.6); Bilirubin, Total 0.5 mg/dL (0.2-1.2); Calc. Creatinine Clearance 21 mL/min (70-130); Calcium 9.4 mg/dL (7.8-10.44); Carbon Dioxide 28 mmol/L (22-29); Chloride 97 mmol/L (98-107); Estimated GFR-MDRD 11; Globulin 3.4 g/dL (2.4-3.5); Glucose 114 mg/dL (70-105); Potassium 5.4 mmol/L (3.5-5.1); Protein, Total 7.5 g/dL (6.0-8.3); Sodium 138 mmol/L (136-145)
[2019-11-04 05:31] LABS: Phosphorus 5.5 mg/dL (2.3-4.7)
--- NOTE | 2019-11-04 06:07 | PDOC.FM ---
- Subjective Subjective: Nursing states pt did well overnight. He did require more sedation but his BP has improved. The pt is coming off of cooling protocol. - Objective MAR Reviewed: Yes Vital Signs & Weight: Vital Signs (12 hours) Temp Pulse Resp BP Pulse Ox 11/04/19 05:00 93.1 F L 11/04/19 04:00 92.2 F L 20 11/04/19 03:00 90.1 F L 11/04/19 02:54 98 11/04/19 02:10 57 L 112/72 11/04/19 02:00 90.5 F L 15 11/04/19 01:00 90.8 F L 11/04/19 00:00 91.6 F L 26 H 11/03/19 23:00 92.3 F L 11/03/19 22:13 78 110/69 11/03/19 22:00 93.8 F L 18 11/03/19 20:00 95.8 F L 23 H 100 11/03/19 18:17 47 L Weight Admit Weight 82.4 kg Weight 83.7 kg Most Recent Monitor Data Heart Rate from ECG 65 NIBP 102/65 NIBP BP-Mean 77 Respiration from ECG 19 SpO2 100 I&O: 11/02/19 11/03/19 11/04/19 06:59 06:59 06:59 Intake Total 100 1168.2 Output Total 70 314 Balance 30 854.2 Result Diagrams: 11/04/19 04:00 11/04/19 07:03 Phys Exam - Physical Examination Intubated and sedated Dry mm, pupils 3mm, not reactive Neck: no JVD Respiratory: no wheezing, clear to auscultation bilateral Cardiovascular: RRR, no significant murmur Gastrointestinal: soft, no distention, positive bowel sounds Musculoskeletal: no edema, pulses present Skin: normal turgor Dx/Plan (1) Cardiac arrest Code(s): I46.9 - CARDIAC ARREST, CAUSE UNSPECIFIED Status: Acute (2) DMII (diabetes mellitus, type 2) Status: Acute (3) ESRD (end stage renal disease) Code(s): N18.6 - END STAGE RENAL DISEASE Status: Acute (4) HTN (hypertension) Code(s): I10 - ESSENTIAL (PRIMARY) HYPERTENSION Status: Acute (5) Hyperkalemia Code(s): E87.5 - HYPERKALEMIA Status: Acute (6) Seizure disorder Code(s): G40.909 - EPILEPSY, UNSP, NOT INTRACTABLE, WITHOUT STATUS EPILEPTICUS Status: Acute - Plan Plan: This is a 44 yo male with a pmh of seizure disorder, AVM bleed requiring craniotomy, ESRD on HD Hospital day 1 Code: Full GI prophylaxis: Pepcid DVT prophylaxis: SCDs Family: None at bedside Fluids: none Nutrition: NPO Drips: Levophed 1 propofol 40 Plastic: ET/OG, left subclavian trilumen catheter, manrique catheter Vent Settings: SIMV 14, TV 500, PS 10, FIO2 30, PEEP 5.0 Plan: Complete cooling protocol and assess neurologic function. Wean from the vent. Continue dialysis as needed Cardiac arrest with ROSC 2/2 Hyperkalemia -Currently coming off cooling protocol (temp 92.1 F) -Intubated with vent support -Sedation protocol Anion gap metabolic acidosis 2/2 uremia and lactic acidosis -Improved, directly correlated to dialysis status Elevate troponins 2/2 arrest and defibrillation Seizure disorder -Continuing home keppra and dilantin -Will obtain EEG if pt continues having jerking. Currently this is blurred by shivering with cooling protocol Possible UTI Elevated BNP likely 2/2 ESRD Macrocytic anemia -Low folate, pt will need supplementation ESRD -Dr. Shin consulted, will continue dialysis DM2 -Hyper/hypoglycemia protocol HTN -Currently hypotensive, will hold meds. Addendum - Attending - Attending Attestation Date/Time: 11/04/19 0118 I personally evaluated the patient and discussed the management with Dr. Riojas. I agree with the History, Examination, Assessment and Plan documented above with any addition or exceptions noted below. Patient here for ROSC s/p cardiac arrest from hyperkalemia in the setting on noncompliance with ESRD on HD. He is now off cooling protocol. Some spontaneous breathing and spontaneous movement. Unknown degree of anoxic injury. Continue rewarming. EEG results pending. Continue HD and Vent support as needed. Pulm and Nephro on board.
[2019-11-04 06:10] LABS: Mean Corpuscular HGB CONC 34.3 g/dL (32.0-36.0); Mean Corpuscular Hemoglobin 34.6 pg (27.0-31.0); Mean Platelet Volume 7.6 fL (7.4-10.4); Platelet Count 164 thou/uL (130-400); RBC Distribution Width 13.1 % (11.5-14.5); Red Blood Cell (RBC) Count 3.19 mill/uL (4.70-6.10); White Blood Cell (WBC) Count 8.9 thou/uL (4.8-10.8)
[2019-11-04 06:26] LABS: Band 30 % (5-11); Lymphocytes 18 % (21-51); MDiff Complete? YES; Monocytes 2 % (0-10); Neutrophil 50 % (42-75)
[2019-11-04 07:37] LABS: Anion Gap 15 mmol/L (10-20); BUN (Urea Nitrogen) 21 mg/dL (8.9-20.6); Calc. Creatinine Clearance 20 mL/min (70-130); Calcium 9.3 mg/dL (7.8-10.44); Carbon Dioxide 30 mmol/L (22-29); Chloride 96 mmol/L (98-107); Estimated GFR-MDRD 11; Glucose 114 mg/dL (70-105); Potassium 5.2 mmol/L (3.5-5.1); Sodium 136 mmol/L (136-145)
[2019-11-04 07:39] LABS: Actual Bicarbonate (HCO3a) 25.7 mEq/L (22-28); Base Excess (BEa) 1.8 mEq/L (-2.0 to +3.0); CO2 Tension 37.5 mmHg (35.0-45.0); Hemoglobin (Hb) 10.8 g/dL (14.0-18.0); O2 Tension (PaO2) 93.7 mmHg (80.0-100.0); Potassium - ABG Lab 5.35 mmol/L (3.70-5.30); pH, Arterial 7.45 (7.35-7.45)
[2019-11-04 07:40] LABS: Puncture Site RBA
[2019-11-04 07:41] LABS: ALV-art Gradient 73.325 (0-20)
--- NOTE | 2019-11-04 07:45 | RAD ---
Portable frontal chest radiograph: 11/04/2019 COMPARISON: 11/02/2019 HISTORY: Pneumonia FINDINGS: The patient is rotated to the right. Stable left vascular catheter and endotracheal tube. I ncreased density in the infrahilar region and medial lung base on the right suggests infectious pneumonitis or aspiration. Left lung relatively clear. Nasogastric tube in place. IMPRESSION: Lines and tubes as detailed above. Parenchymal opacity in the medial right base suggests infectious pneumonitis/aspiration. Follow-up to resolution advised.
[2019-11-04] MEDS: Famotidine/PF 20 mg/2ml Vial SLOW IVP SCH (08:30)
--- NOTE | 2019-11-04 08:59 | PRG ---
DATE OF SERVICE: 11/04/2019 35 minutes of critical care time. SUBJECTIVE: The patient is currently being rewarmed. Neurologically, I can get him to withdrawal of all four extremities, but I cannot get him to wake up and follow commands. He was on propofol as I was examining him, but he had not been paralyzed as much earlier in the night. OBJECTIVE: VITAL SIGNS: His temperature currently is 94, pulse 73, blood pressure 121/74, O2 saturation 100%. He is on Levophed at 2 mcg/minute. A 24-hour intake 1168, output 314. He got dialysis twice yesterday. HEENT: Pupils are 2 mm, nonreactive. He has no oculocephalic reflex. NECK: No JVD. LUNGS: Clear anteriorly. CARDIOVASCULAR: S1 and S2. Regular without murmur. ABDOMEN: Soft and nontender. EXTREMITIES: No edema. LABORATORY DATA: Sodium 136, potassium 5.2, chloride 96, CO2 of 30, BUN 21, creatinine 5.5, glucose 114. PH 7.45, pCO2 of 37, pO2 of 93 on SIMV rate 14, tidal volume 500, PEEP 5, pressure support 10, FiO2 of 30%. White blood cell count 8.9, hematocrit 32, and platelet count 164. Chest x-ray shows no significant change. ASSESSMENT: 1. Status post cardiopulmonary arrest, which was likely secondary to hyperkalemia. 2. Diabetes mellitus. 3. Chronic kidney disease, stage 5. 4. Diastolic heart dysfunction. 5. Hypertension. PLAN: 1. Re-evaluate neurologic status after his rewarming. 2. Agree with EEG. 3. Try to hold sedation as much as possible to evaluate his neuro status. 4. Dialysis as needed. Job ID: [id number]
--- NOTE | 2019-11-04 09:08 | PRG ---
DATE OF SERVICE: 11/04/2019 SERVICE: Renal Medicine. SUBJECTIVE: Mr. Ayala is a 44-year-old male with ESRD, was admitted secondary to cardiac arrest secondary to his hyperkalemia. He again received emergent hemodialysis yesterday due to the persistent elevated potassium - noted at 6.8. This morning, potassium is much improved at the most recent value of 5.2. Supplemental Keppra is also being given after each dialysis. The patient is still noted to be sleepy from sedation. Please note, all stations have been discontinued. OBJECTIVE: VITAL SIGNS: Blood pressure 121/74, heart rate 73, respiratory rate 18, and O2 saturation 100%. GENERAL: The patient is sleepy, comfortable, not in distress. Please note, he is extubated. HEENT: He has a pinkish conjunctivae. Anicteric sclerae. NECK: No neck mass. No carotid bruits. No JVD. CHEST: No deformities. LUNGS: Clear breath sounds. No wheezing. No crackles. HEART: Normal sinus rhythm. No murmur. No gallops. No rubs. ABDOMEN: Globular, soft, and nontender. No masses. EXTREMITIES: No edema. No deformities. MEDICATIONS: Medications of November 04, 2019, were reviewed. LABORATORY DATA: Laboratories of November 04, 2019; white count 8.9, hemoglobin 11. Sodium 136, potassium 5.2, chloride 96, carbon dioxide 30, BUN 21, creatinine 5.55, glucose 114, and calcium 9.3. ASSESSMENT AND PLAN: 1. Hyperkalemia, resolved with consecutive dialysis. No indication for any emergent dialysis today. 2. End-stage renal disease - stable. We will continue current Friday, Friday, and Friday hemodialysis regimen. I have scheduled him for a 4-hour hemodialysis tomorrow. 3. Seizure disorder - the patient currently on Keppra. Supplemental Keppra after each dialysis. Overall, prognosis remains guarded. Job ID: [id number]
--- NOTE | 2019-11-04 10:44 | EKG ---
Test Reason : Blood Pressure : / mmHG Vent. Rate : 114 BPM Atrial Rate : 114 BPM P-R Int : 214 ms QRS Dur : 118 ms QT Int : 268 ms P-R-T Axes : 054 014 079 degrees QTc Int : 369 ms Normal sinus rhythm Non-specific intra-ventricular conduction delay Peaked T waves consider hyperkalemia. Abnormal ECG No previous ECGs available Confirmed by STEPHAN PENG ([id number]) on 11/04/2019 10:44:02 AM Referred By: Confirmed By:STEPHAN PENG
[2019-11-04 11:28] LABS: Anion Gap 19 mmol/L (10-20); BUN (Urea Nitrogen) 23 mg/dL (8.9-20.6); Calc. Creatinine Clearance 19 mL/min (70-130); Calcium 9.2 mg/dL (7.8-10.44); Carbon Dioxide 27 mmol/L (22-29); Chloride 97 mmol/L (98-107); Estimated GFR-MDRD 10; Glucose 96 mg/dL (70-105); Potassium 4.8 mmol/L (3.5-5.1); Sodium 138 mmol/L (136-145)
--- NOTE | 2019-11-04 12:28 | EKG ---
Test Reason : Blood Pressure : / mmHG Vent. Rate : 076 BPM Atrial Rate : 076 BPM P-R Int : 194 ms QRS Dur : 116 ms QT Int : 436 ms P-R-T Axes : 042 056 049 degrees QTc Int : 490 ms Normal sinus rhythm Non-specific intra-ventricular conduction delay Moderate voltage criteria for LVH, may be normal variant Prolonged QT Abnormal ECG Confirmed by STEPHAN PENG ([id number]) on 11/04/2019 12:28:26 PM Referred By: LU Confirmed By:STEPHAN PENG
--- NOTE | 2019-11-04 14:01 | EEG ---
Referring Physician: TAMARA ELKINS EEG # [id number] TEST TYPE: ROUTINE PORTABLE INPATIENT REPORT: AN EEG USING THE INTERNATIONAL TEN-TWENTY SYSTEM OF ELECTRODE PLACEMENT WAS PERFORMED. The waking background is an 8-9 hertz occipitally dominant alpha frequency. There is some persistent EMG artifact seen over the left hemisphere. No epileptiform features were seen. Photic stimulation was unremarkable. There is some intermittent theta activity seen as well. IMPRESSION: THIS IS A SLIGHTLY LIMITED STUDY, BUT THERE APPEARS TO BE A NORMAL BACKGROUND PRESENT IN THE RIGHT HEMISPHERE. Director Of Instrumental Music: MARIA A Buttermaker Continuous Churn: EEG.BIRDIE NESS
[2019-11-04 15:27] LABS: Anion Gap 18 mmol/L (10-20); BUN (Urea Nitrogen) 25 mg/dL (8.9-20.6); Calc. Creatinine Clearance 17 mL/min (70-130); Calcium 8.8 mg/dL (7.8-10.44); Carbon Dioxide 28 mmol/L (22-29); Chloride 97 mmol/L (98-107); Estimated GFR-MDRD 9; Glucose 104 mg/dL (70-105); Sodium 137 mmol/L (136-145)
[2019-11-04 17:22] LABS: Potassium 5.9 mmol/L (3.5-5.1)
[2019-11-04 19:20] LABS: Anion Gap 18 mmol/L (10-20); BUN (Urea Nitrogen) 29 mg/dL (8.9-20.6); Calc. Creatinine Clearance 16 mL/min (70-130); Calcium 8.7 mg/dL (7.8-10.44); Carbon Dioxide 28 mmol/L (22-29); Chloride 96 mmol/L (98-107); Estimated GFR-MDRD 9; Glucose 135 mg/dL (70-105); Potassium 5.9 mmol/L (3.5-5.1); Sodium 136 mmol/L (136-145)
[2019-11-04 23:24] LABS: Anion Gap 18 mmol/L (10-20); BUN (Urea Nitrogen) 33 mg/dL (8.9-20.6); Calc. Creatinine Clearance 15 mL/min (70-130); Calcium 8.8 mg/dL (7.8-10.44); Carbon Dioxide 28 mmol/L (22-29); Chloride 97 mmol/L (98-107); Estimated GFR-MDRD 8; Glucose 114 mg/dL (70-105); Potassium 5.4 mmol/L (3.5-5.1); Sodium 138 mmol/L (136-145)
[2019-11-05] MEDS: Propofol 1,000 MG/100 ML VIAL IV PRN (01:07)
[2019-11-05 04:46] LABS: ALT (SGPT) 33 U/L (8-55); AST (SGOT) 32 U/L (5-34); Albumin 3.5 g/dL (3.5-5.0); Alkaline Phosphatase 98 U/L (40-110); Anion Gap 17 mmol/L (10-20); BUN (Urea Nitrogen) 38 mg/dL (8.9-20.6); Bilirubin, Total 0.4 mg/dL (0.2-1.2); Calc. Creatinine Clearance 15 mL/min (70-130); Calcium 8.7 mg/dL (7.8-10.44); Carbon Dioxide 28 mmol/L (22-29); Chloride 95 mmol/L (98-107); Estimated GFR-MDRD 8; Globulin 3.1 g/dL (2.4-3.5); Glucose 118 mg/dL (70-105); Potassium 5.2 mmol/L (3.5-5.1); Protein, Total 6.6 g/dL (6.0-8.3); Sodium 135 mmol/L (136-145)
[2019-11-05 04:48] LABS: Band 21 % (5-11); Hemoglobin 8.7 g/dL (14.0-18.0); Lymphocytes 17 % (21-51); MDiff Complete? YES; Mean Corpuscular HGB CONC 34.6 g/dL (32.0-36.0); Mean Corpuscular Hemoglobin 34.8 pg (27.0-31.0); Mean Platelet Volume 7.9 fL (7.4-10.4); Monocytes 3 % (0-10); Neutrophil 59 % (42-75); Platelet Count 111 thou/uL (130-400); Platelet Morphology Comment Appears Decreased; Red Blood Cell (RBC) Count 2.51 mill/uL (4.70-6.10); White Blood Cell (WBC) Count 6.4 thou/uL (4.8-10.8)
--- NOTE | 2019-11-05 06:27 | PDOC.FM ---
- Subjective Subjective: Per nursing, pt did well overnight. She reports that she did not require levophed overnight but BP was maintained by titrating propofol. He followed commands overnight and tracked nurse with eyes. He did become agitated and required the sedation to be restarted. - Objective MAR Reviewed: Yes Vital Signs & Weight: Vital Signs (12 hours) Temp Pulse Resp BP Pulse Ox 11/05/19 04:00 99.1 F 14 11/05/19 02:01 82 87/51 L 11/05/19 02:00 14 11/05/19 00:00 99.1 F 16 11/04/19 22:00 14 11/04/19 21:58 91 96/60 11/04/19 20:00 98.8 F 14 11/04/19 19:41 100 Weight Admit Weight 86.9 g Weight 82.6 kg Most Recent Monitor Data Heart Rate from ECG 76 NIBP 93/58 NIBP BP-Mean 69 Respiration from ECG 16 SpO2 100 I&O: 11/03/19 11/04/19 11/05/19 06:59 06:59 06:59 Intake Total 100 1168.2 1094 Output Total 70 314 67 Balance 30 854.2 1027 Result Diagrams: 11/05/19 03:50 11/05/19 03:50 Phys Exam - Physical Examination Constitutional: NAD HEENT: PERRLA Dry mm, ET/OG tube in place Respiratory: no wheezing, clear to auscultation bilateral Cardiovascular: RRR, no significant murmur Gastrointestinal: soft, no distention, positive bowel sounds Musculoskeletal: no edema, pulses present Withdraws with all extremities Skin: normal turgor Dx/Plan (1) Cardiac arrest Code(s): I46.9 - CARDIAC ARREST, CAUSE UNSPECIFIED Status: Acute (2) DMII (diabetes mellitus, type 2) Status: Acute (3) ESRD (end stage renal disease) Code(s): N18.6 - END STAGE RENAL DISEASE Status: Acute (4) HTN (hypertension) Code(s): I10 - ESSENTIAL (PRIMARY) HYPERTENSION Status: Acute (5) Hyperkalemia Code(s): E87.5 - HYPERKALEMIA Status: Acute (6) Seizure disorder Code(s): G40.909 - EPILEPSY, UNSP, NOT INTRACTABLE, WITHOUT STATUS EPILEPTICUS Status: Acute - Plan Plan: This is a 44 yo male with a pmh of seizure disorder, AVM bleed requiring craniotomy, ESRD on HD Hospital day 2 Code: Full GI prophylaxis: Pepcid DVT prophylaxis: SCDs Family: None at bedside Fluids: none Nutrition: Nepro 30ml q4Hr Drips: Propofol 30 Plastic: ET/OG, left subclavian trilumen catheter, manrique catheter Vent Settings: SIMV 14, TV 500, PS 10, Fio2 30, Peep 5.0 Plan: EEG shows good function. Wean from the vent. Continue dialysis as needed. Placement Cardiac arrest with ROSC 2/2 Hyperkalemia -Intubated with vent support -Sedation protocol Anion gap metabolic acidosis 2/2 uremia and lactic acidosis, resolved Elevate troponins 2/2 arrest and defibrillation Seizure disorder -Continuing home keppra and dilantin -EEG shows no seizure activity Possible UTI Elevated BNP likely 2/2 ESRD Macrocytic anemia -Low folate, pt will need supplementation -Slight decrease likely represents dilution, losses from dialysis, and stabilization after bleeding from biting tongue ESRD -Dr. Shin consulted, will continue dialysis DM2 -Hyper/hypoglycemia protocol HTN -Currently hypotensive, will hold meds. Addendum - Attending - Attending Attestation Date/Time: 11/05/19 1041 I personally evaluated the patient and discussed the management with Dr. Riojas. I agree with the History, Examination, Assessment and Plan documented above with any addition or exceptions noted below. Patient extubated, having some spontaneous movement and protecting his airway. Continue HD per Nephro. Will see how much mental status he gets back due to the likely anoxic injury he suffered. Vitals stable.
[2019-11-05 06:41] LABS: Actual Bicarbonate (HCO3a) 27.5 mEq/L (22-28); Base Excess (BEa) 3.1 mEq/L (-2.0 to +3.0); Calcium, Ionized 1.08 mmol/L (1.12-1.30); Carboxyhemoglobin (COHb) 1.5 gm% (0.0-3.0); Hemoglobin (Hb) 8.7 g/dL (14.0-18.0); O2 Tension (PaO2) 85.9 mmHg (80.0-100.0); Potassium - ABG Lab 4.83 mmol/L (3.70-5.30); pH, Arterial 7.44 (7.35-7.45)
[2019-11-05 06:50] LABS: Puncture Site RBA
--- NOTE | 2019-11-05 08:19 | RAD ---
Portable frontal chest radiograph: 11/05/2019 COMPARISON: 11/04/2019 HISTORY: Pneumonia FINDINGS: Endotracheal tube, nasogastric tube, and left-sided vascular catheter unchanged. Airspace d isease noted in the right infrahilar region/medial right lung base which suggests infectious pneumonitis/aspiration or volume loss. Subtle new similar opacity noted in the medial left base. IMPRESSION: Nonspecific bibasilar pulmonary parenchymal opacity as detailed above.
[2019-11-05] MEDS: Famotidine/PF 20 mg/2ml Vial SLOW IVP SCH (08:33)
[2019-11-05] MEDS ORDERED: DC Sedation Protocol FS ONE (09:20)
--- NOTE | 2019-11-05 09:28 | PRG ---
DATE OF SERVICE: 11/05/2019 35 minutes of critical care time. SUBJECTIVE: The patient remains in bed on mechanical ventilation. He does wake up and follows commands without difficulty. OBJECTIVE: VITAL SIGNS: His temperature is 99.3, pulse rate 75, blood pressure 92/59, and O2 saturation 100%. 24-hour intake 1517 and output 72. HEENT: Unremarkable. NECK: No JVD. LUNGS: Clear anteriorly. CARDIAC: S1 and S2, regular without murmur. ABDOMEN: Soft. EXTREMITIES: No edema. NEUROLOGIC: Moves all 4 extremities to commands. IMAGING DATA: His chest x-ray shows no mass, effusion, or infiltrate. ET tube is in good position. LABORATORY DATA: White blood cell count 6.4, hematocrit 25.2, and platelet count 111. PH of 7.44, pCO2 of 41, pO2 of 85. Sodium 135, potassium 5.2, chloride 95, CO2 of 28, BUN 38, creatinine 7.7, glucose 118. ASSESSMENT: 1. Status post cardiac arrest secondary to severe hyperkalemia. 2. Chronic renal failure. 3. Diastolic heart failure. 4. Acute respiratory failure requiring mechanical ventilation. 5. Diabetes mellitus. PLAN: 1. Extubate and observe. 2. Hemodialysis today. Job ID: [id number]
[2019-11-05] MEDS ORDERED: EPOETIN ALFA-EPBX (ESRD) 4,000 UNIT/ML VIAL SC SCH (09:45)
--- NOTE | 2019-11-05 10:31 | PRG ---
DATE OF SERVICE: 11/05/2019 SUBJECTIVE: Mr. Ayala is a 44-year-old male with ESRD and followed up by the [facility] for his maintenance hemodialysis. He is currently undergoing hemodialysis today. He was initially admitted due to a cardiac arrest secondary to hyperkalemia. He has several bouts of hyperkalemia while in the hospital, has received consecutive dialysis. His potassium this morning is much improved. He has also been extubated. Adjustment of his antiseizure medications being done. He is being given Keppra after dialysis. OBJECTIVE: VITAL SIGNS: Blood pressure is 92/59, heart rate 75, respiratory rate 14, and O2 saturation 100%. GENERAL: Noted to be awake, comfortable, not in distress. SKIN: Adequate turgor. HEENT: He has slightly pale conjunctivae. Anicteric sclerae. NECK: No neck mass. No carotid bruits. No JVD. CHEST: No deformities. LUNGS: Decreased breath sounds. HEART: Normal sinus rhythm. No murmur. No gallops. No rubs. ABDOMEN: Globular, soft, and nontender. No masses. EXTREMITIES: No edema. No deformities. MEDICATIONS: Medications of November 05, 2019, reviewed. LABORATORY DATA: Laboratories of November 05, 2019, white count 6.4 and hemoglobin 8.7. Sodium 135, potassium 5.2, chloride 95, carbon dioxide 28, BUN 38, creatinine 7.75, glucose 118, calcium 7, AST 32, ALT 33, and albumin 3.5. ASSESSMENT AND PLAN: 1. End-stage renal disease, stable. We will continue current Friday, Friday, and Friday hemodialysis. Fluid removal only as tolerated. 2. Hyperkalemia resolved with daily dialysis. 3. Seizure disorder. Continue current dose of levetiracetam. 4. Anemia. Start Epogen 7500 units subcu every week. Job ID: [id number]
[2019-11-05] MEDS: levETIRAcetam In NaCl (Iso-Os) 1,000 MG in Premix Bag 1 BAG IVPB SCH (14:13)
[2019-11-05] MEDS ORDERED: Acetaminophen 325 MG TAB PO PRN (18:17)
[2019-11-05] MEDS ORDERED: Acetaminophen 650 MG Suppository PR PRN (18:26)
--- NOTE | 2019-11-05 19:11 | RAD ---
EXAM: CHEST ONE VIEW: 11/05/19 HISTORY: Fever, previously on a ventilator with respiratory distress. COMPARISON: 11/05/19. FINDINGS: Left subclavian catheter remains in place. The endotracheal tube has been removed from prior study. P atchy parenchymal changes noted in the right lower lobe and infrahilar region which appear to be some what less prominent. The left chest is clear. IMPRESSION: Patchy right lower lobe and infrahilar parenchymal changes slightly less dense. No significant new pr ocess. POS: RRE
--- NOTE | 2019-11-05 21:14 | PDOC.BPN ---
- Brief Progress Note Pt spiked fever of 100.8 per nursing report. Patient seen and examined, tired appearing but able to answer with short few word sentences. Poor respiratory effort but no appreciable rhonchi on exam. BCx, UA with UCx obtained. Repeat CXR. XR demonstrates LLL perihilar infiltrate, present from AM but more focal and new compared to early admission XR. Procal 2.2. Pt with possible ventilator acquired pneumonia. Will obtain sputum Cx. Start on Vanc and Zosyn. Repeat procal in AM. Will cont to monitor.
[2019-11-05] MEDS ORDERED: Vancomycin HCl 1 GM in Premix Bag 1 BAG IVPB SCH ×2 (21:15→21:30)
[2019-11-05] MEDS ORDERED: HOLD VANCOMYCIN FOR LEVEL >20 FS SCH (21:30)
[2019-11-05] MEDS ORDERED: Vancomycin HCl 500 MG in Sodium Chloride 0.9% 100 ML IVPB SCH (21:30)
[2019-11-05] MEDS ORDERED: Vancomycin HCl 750 MG in Sodium Chloride 0.9% 250 ML 250 ML IVPB SCH (21:30)
[2019-11-05] MEDS ORDERED: Vancomycin HCl 1.25 GM in Sodium Chloride 0.9% 250 ML 250 ML IVPB SCH (21:30)
[2019-11-05] MEDS: Piperacillin/Tazobactam 2.25 GM in Sodium Chloride 0.9% 100 ML IVPB SCH (21:35)
[2019-11-05] MEDS ORDERED: Vancomycin 1.5 GRAM/300 ML BAG 1.5 GM in Premix Bag 1 BAG IVPB SCH (22:00)
[2019-11-06 05:00] LABS: Bacteria/HPF 1+ HPF (None Seen); Bilirubin Negative (Negative); Blood, Urine 2+ (Negative); Clarity Turbid (Clear); Glucose, Urine (Dipstick) Normal (Negative); Leukocyte 500 Leu/uL (Negative); Nitrite Negative (Negative); Protein, Urine (Dipstick) 300 mg/dL (Neg-Trace); Squamous Epithelial None Seen HPF (0-3); Urobilinogen Normal mg/dL (Less than 2); WBC/HPF Greater than 50 HPF (0-3)
[2019-11-06 05:10] LABS: ALT (SGPT) 30 U/L (8-55); AST (SGOT) 37 U/L (5-34); Albumin 3.6 g/dL (3.5-5.0); Alkaline Phosphatase 94 U/L (40-110); Anion Gap 19 mmol/L (10-20); BUN (Urea Nitrogen) 35 mg/dL (8.9-20.6); Bilirubin, Total 0.6 mg/dL (0.2-1.2); Calc. Creatinine Clearance 17 mL/min (70-130); Calcium 9.5 mg/dL (7.8-10.44); Carbon Dioxide 27 mmol/L (22-29); Chloride 97 mmol/L (98-107); Estimated GFR-MDRD 9; Globulin 3.3 g/dL (2.4-3.5); Glucose 61 mg/dL (70-105); Potassium 4.3 mmol/L (3.5-5.1); Protein, Total 6.9 g/dL (6.0-8.3); Sodium 139 mmol/L (136-145)
[2019-11-06 05:12] LABS: #Lymphocytes 1.3 thou/uL (1.20-3.40); #Monocytes 0.3 thou/uL (0.11-0.59); #Neutrophils 3.3 thou/uL (1.40-6.50); %Basophils 0.1 % (0.0-1.0); %Eosinophils 0.9 % (0.0-10.0); %Lymphocytes 26.7 % (21.0-51.0); %Monocytes 6.7 % (0.0-10.0); %Neutrophils 65.5 % (42.0-75.0); Hemoglobin 8.9 g/dL (14.0-18.0); Mean Corpuscular HGB CONC 34.2 g/dL (32.0-36.0); Mean Corpuscular Hemoglobin 34.4 pg (27.0-31.0); Mean Platelet Volume 7.5 fL (7.4-10.4); Platelet Count 116 thou/uL (130-400); RBC Distribution Width 12.7 % (11.5-14.5)
[2019-11-06] MEDS: Piperacillin/Tazobactam 2.25 GM in Sodium Chloride 0.9% 100 ML IVPB SCH ×3 (05:19→21:35)
--- NOTE | 2019-11-06 07:57 | PDOC.FM ---
- Subjective Subjective: Pt mentation improving today. He is AOx2 and able to follow all commands and was answering most questions appropriately. He denies any chest pain, SOB, N/V. He had a fever overnight. - Objective MAR Reviewed: Yes Vital Signs & Weight: Vital Signs (12 hours) Temp Pulse Ox 11/06/19 07:00 98.6 F 11/06/19 06:42 100 11/06/19 04:00 98.1 F 11/06/19 00:00 98.7 F 11/05/19 20:00 100.1 F H Weight Admit Weight 82.4 kg Weight 78.5 kg Most Recent Monitor Data Heart Rate from ECG 83 NIBP 115/78 NIBP BP-Mean 90 Respiration from ECG 23 SpO2 100 I&O: 11/05/19 11/06/19 11/07/19 06:59 06:59 06:59 Intake Total 1517 989.2 Output Total 72 62 5 Balance 1445 927.2 -5 Result Diagrams: 11/06/19 04:15 11/06/19 04:15 Phys Exam - Physical Examination Constitutional: NAD HEENT: moist MMs, sclera anicteric Respiratory: no wheezing, no rales, no rhonchi, clear to auscultation bilateral Cardiovascular: RRR, no significant murmur, no rub Gastrointestinal: soft, non-tender, no distention, positive bowel sounds Musculoskeletal: no edema, pulses present Neurological: non-focal, moves all 4 limbs (decreased strength on R, pt reports is baseline) Psychiatric: normal affect Deviation from normal: AOx2 to person and place Skin: normal turgor, cap refill <2 seconds Dx/Plan (1) Cardiac arrest Code(s): I46.9 - CARDIAC ARREST, CAUSE UNSPECIFIED Status: Acute (2) DMII (diabetes mellitus, type 2) Status: Acute (3) ESRD (end stage renal disease) Code(s): N18.6 - END STAGE RENAL DISEASE Status: Acute (4) HTN (hypertension) Code(s): I10 - ESSENTIAL (PRIMARY) HYPERTENSION Status: Acute (5) Hyperkalemia Code(s): E87.5 - HYPERKALEMIA Status: Acute (6) Seizure disorder Code(s): G40.909 - EPILEPSY, UNSP, NOT INTRACTABLE, WITHOUT STATUS EPILEPTICUS Status: Acute (7) UTI (urinary tract infection) Status: Acute - Plan Plan: This is a 44 yo male with a pmh of seizure disorder, AVM bleed requiring craniotomy, ESRD on HD Hospital day 3 Code: Full GI prophylaxis: Pepcid DVT prophylaxis: SCDs Family: None at bedside Fluids: none Plastic: ET/OG, left subclavian trilumen catheter, manrique catheter Cardiac arrest with ROSC 2/2 Hyperkalemia -Extubated yesterday and doing well off vent -Mentation improving, continue to monitor RLL VAP Fever overnight. CXR showed possible RLL infiltrate, but improved from prior -BCx -Vanc and zosyn -Monitor Anion gap metabolic acidosis 2/2 uremia and lactic acidosis, resolved Elevate troponins 2/2 arrest and defibrillation Seizure disorder -Continuing home keppra and dilantin -EEG showed no seizure activity Elevated BNP likely 2/2 ESRD Macrocytic anemia -Low folate, pt will need supplementation -Slight decrease likely represents dilution, losses from dialysis, and stabilization after bleeding from biting tongue ESRD -Dr. Shin consulted, will continue dialysis, MWF DM2 -Hyper/hypoglycemia protocol HTN -Resume home meds
[2019-11-06] MEDS ORDERED: Piperacillin/Tazobactam 4.5 GM in Sodium Chloride 0.9% 100 ML IVPB SCH (09:00)
[2019-11-06] MEDS: Famotidine/PF 20 mg/2ml Vial SLOW IVP SCH (09:04)
--- NOTE | 2019-11-06 09:49 | PRG ---
DATE OF SERVICE: 11/06/2019 SUBJECTIVE: The patient was successfully extubated yesterday. Has no acute complaints. Does not seem very confused. OBJECTIVE: VITAL SIGNS: On exam, temperature 98.4, pulse 89, blood pressure 147/77, and O2 saturation 99%. A 24-hour intake 982, output 2000. HEENT: Unremarkable. NECK: No JVD. CHEST: Clear. CARDIAC: S1 and S2. Regular. ABDOMEN: Soft. EXTREMITIES: No edema. LABORATORY DATA: Sodium 139, potassium 4.3, chloride 97, CO2 of 27, BUN 35, creatinine 6.6, and glucose 61. White blood cell count 5, hematocrit 26.1, and platelet count 116. ASSESSMENT: 1. Status post intubation after cardiac arrest from hyperkalemia. 2. End-stage renal disease, requiring dialysis. 3. Medical noncompliance. 4. Diastolic heart failure. 5. Diabetes mellitus. PLAN: The patient can be transferred out to telemetry if he does well on monitor tech for 24 hours and he can go to the regular floor. Job ID: [id number]
--- NOTE | 2019-11-06 11:03 | PRG ---
DATE OF SERVICE: 11/06/2019 SERVICE: Renal Medicine. SUBJECTIVE: Mr. Ayala is a 44-year-old male with ESRD and followed up by the [facility]al Service for his maintenance hemodialysis. He was initially admitted due to cardiorespiratory arrest secondary to his hyperkalemia. He received consecutive hemodialysis for the hyperkalemia. Potassium this morning is much improved. He voices no new complaints. PHYSICAL EXAMINATION: VITAL SIGNS: Blood pressure 150/92, heart rate 83, respiratory rate 17, and O2 saturation 100%. GENERAL: The patient is awake, lethargic, not in distress. SKIN: Adequate turgor. HEENT: He has a slightly pale conjunctivae. Anicteric sclerae. NECK: No neck mass. No carotid bruits. No JVD. CHEST: No deformities. LUNGS: Clear breath sounds. HEART: Normal sinus rhythm. No murmur. No gallops. No rubs. ABDOMEN: Globular, soft, and nontender. No masses. EXTREMITIES: No edema. LABORATORY DATA: Laboratories of November 06, 2019; white count 5, hemoglobin 8.9. Sodium 139, potassium 4.3, chloride 97, carbon dioxide 27, BUN 35, creatinine 6.65, glucose 61, calcium 9.5, AST 37, ALT 30, and albumin 3.6. Procalcitonin 2.16. ASSESSMENT AND PLAN: 1. End-stage renal disease, continuing Friday, Friday, and Friday hemodialysis. Tolerating said treatment. There is no indication for any emergent hemodialysis today. 2. Hyperkalemia, resolved. 3. Anemia, continuing weekly Epogen. Continue supportive care. P.r.n. blood transfusion. Recheck basic metabolic panel and CBC in a.m. Job ID: [id number]
--- NOTE | 2019-11-06 11:49 | RAD ---
EXAM: CHEST ONE VIEW HISTORY: Pneumonia follow-up. COMPARISON: 11/05/2019 FINDINGS: The cardiac silhouette and pulmonary vasculature is within normal limits. Left subclavian central sasha ous catheter remains in place. Again noted is mild increased interstitial densities at the medial right lung base without consolidation. Left lung remains clear. No interval change from prior exam. IMPRESSION: Stable chest with interstitial and parenchymal airspace opacities at the right lung base worrisome fo r pneumonia. Continued follow-up to complete resolution is recommended.
[2019-11-06] MEDS: hydrALAZINE 25 MG TAB PO SCH ×2 (15:32→21:27)
[2019-11-06] MEDS: Carvedilol 3.125 MG TAB PO SCH (21:27)
[2019-11-07 04:44] LABS: Band 1 % (5-11); Lymphocytes 26 % (21-51); MDiff Complete? YES; Mean Corpuscular HGB CONC 34.8 g/dL (32.0-36.0); Mean Corpuscular Hemoglobin 34.5 pg (27.0-31.0); Mean Platelet Volume 7.1 fL (7.4-10.4); Monocytes 13 % (0-10); Neutrophil 59 % (42-75); Platelet Count 131 thou/uL (130-400); Platelet Morphology Comment Appears Adequate; RBC Distribution Width 12.5 % (11.5-14.5); RBC Morphology Normal; Reactive Lymphocytes 1 % (0-10); Red Blood Cell (RBC) Count 2.32 mill/uL (4.70-6.10); White Blood Cell (WBC) Count 4.7 thou/uL (4.8-10.8)
[2019-11-07 04:58] LABS: ALT (SGPT) 26 U/L (8-55); AST (SGOT) 31 U/L (5-34); Albumin 3.5 g/dL (3.5-5.0); Alkaline Phosphatase 93 U/L (40-110); Anion Gap 22 mmol/L (10-20); BUN (Urea Nitrogen) 57 mg/dL (8.9-20.6); Bilirubin, Total 0.5 mg/dL (0.2-1.2); Calc. Creatinine Clearance 12 mL/min (70-130); Carbon Dioxide 23 mmol/L (22-29); Chloride 97 mmol/L (98-107); Estimated GFR-MDRD 6; Globulin 3.1 g/dL (2.4-3.5); Glucose 87 mg/dL (70-105); Potassium 4.7 mmol/L (3.5-5.1); Protein, Total 6.6 g/dL (6.0-8.3); Sodium 137 mmol/L (136-145)
--- NOTE | 2019-11-07 07:52 | PDOC.FM ---
- Subjective Subjective: Pt got agitated overnight and pulled out his central line. He denies any CP, SOB , N/V, fevers. - Objective MAR Reviewed: Yes Vital Signs & Weight: Vital Signs (12 hours) Temp Pulse Resp BP BP Pulse Ox 11/07/19 03:05 99.1 F 75 18 153/71 H 96 11/06/19 21:27 83 11/06/19 20:00 98 11/06/19 19:55 98.2 F 83 16 151/75 H 96 Weight Admit Weight 82.4 kg Weight 76.113 kg Most Recent Monitor Data Heart Rate from ECG 80 NIBP 143/83 NIBP BP-Mean 103 Respiration from ECG 15 SpO2 100 I&O: 11/06/19 11/07/19 11/08/19 06:59 06:59 06:59 Intake Total 989.2 1208 Output Total 62 8 Balance 927.2 1200 Result Diagrams: 11/07/19 03:59 11/07/19 03:59 Phys Exam - Physical Examination Constitutional: NAD HEENT: moist MMs, sclera anicteric Respiratory: no wheezing, no rhonchi, clear to auscultation bilateral Cardiovascular: RRR, no significant murmur, no rub thrill over left AVF Gastrointestinal: soft, non-tender, positive bowel sounds Musculoskeletal: no edema, pulses present Neurological: non-focal, moves all 4 limbs Psychiatric: A&O x 3 Deviation from normal: slowed mentation Skin: normal turgor, cap refill <2 seconds Dx/Plan (1) Cardiac arrest Code(s): I46.9 - CARDIAC ARREST, CAUSE UNSPECIFIED Status: Acute (2) DMII (diabetes mellitus, type 2) Status: Acute (3) ESRD (end stage renal disease) Code(s): N18.6 - END STAGE RENAL DISEASE Status: Acute (4) HTN (hypertension) Code(s): I10 - ESSENTIAL (PRIMARY) HYPERTENSION Status: Acute (5) Hyperkalemia Code(s): E87.5 - HYPERKALEMIA Status: Acute (6) Seizure disorder Code(s): G40.909 - EPILEPSY, UNSP, NOT INTRACTABLE, WITHOUT STATUS EPILEPTICUS Status: Acute (7) UTI (urinary tract infection) Status: Acute - Plan Plan: This is a 44 yo male with a pmh of seizure disorder, AVM bleed requiring craniotomy, ESRD on HD Hospital day 4 Code: Full GI prophylaxis: Pepcid DVT prophylaxis: SCDs Family: None at bedside Cardiac arrest with ROSC 2/2 Hyperkalemia -Extubated 11/05 and doing well off vent -Mentation improving, continue to monitor RLL VAP CXR showed possible RLL infiltrate. -BCx -Vanc and zosyn, CVC pulled out and no further access. Will discuss transition to PO abx -Monitor Anion gap metabolic acidosis 2/2 uremia and lactic acidosis, resolved Elevate troponins 2/2 arrest and defibrillation Seizure disorder -Continuing home keppra and dilantin -EEG showed no seizure activity Elevated BNP likely 2/2 ESRD Macrocytic anemia -Low folate, pt will need supplementation -Slight decrease likely represents dilution, losses from dialysis, and stabilization after bleeding from biting tongue ESRD -Dr. Shin consulted, will continue dialysis, MWF DM2 -Hyper/hypoglycemia protocol HTN -Resume home meds
[2019-11-07] MEDS: levETIRAcetam 500 MG TAB PO SCH ×2 (09:08→20:38)
[2019-11-07] MEDS: Aspirin 81 mg Enteric Coated Tablet PO SCH (09:08)
[2019-11-07] MEDS: Lisinopril 5 MG TAB PO SCH (09:09)
[2019-11-07] MEDS: hydrALAZINE 25 MG TAB PO SCH ×3 (09:09→20:37)
[2019-11-07] MEDS: Carvedilol 3.125 MG TAB PO SCH ×2 (09:09→20:38)
[2019-11-07] MEDS: Famotidine/PF 20 mg/2ml Vial SLOW IVP SCH (09:10)
[2019-11-07] MEDS: Piperacillin/Tazobactam 2.25 GM in Sodium Chloride 0.9% 100 ML IVPB SCH ×3 (09:12→21:21)
[2019-11-07] MEDS: Acetaminophen 650 MG/20.3 ML UDCUP PO PRN (09:17)
--- NOTE | 2019-11-07 10:35 | PRG ---
DATE OF SERVICE: 11/07/2019 SUBJECTIVE: Mr. Ayala is a 44-year-old male with ESRD, was admitted for cardiorespiratory arrest secondary to his hyperkalemia. He has missed dialysis, which has precipitated the hyperkalemia. Since that time, he is doing well. He received several days of consecutive hemodialysis for the hyperkalemia. This morning, he has no new complaints. No chest pain or shortness of breath. OBJECTIVE: VITAL SIGNS: Blood pressure 185/88 - before BP medications, heart rate 84, respiratory rate 20, temperature 97.4, and O2 saturation 97% - room air. GENERAL: Awake, alert, supine, comfortable, and somewhat lethargic. SKIN: Adequate turgor. HEENT: He has a slightly pale conjunctivae. Anicteric sclerae. NECK: No neck mass. No carotid bruits. No JVD. CHEST: No deformities. LUNGS: Clear breath sounds. HEART: Normal sinus rhythm. No murmur. No gallops. No rubs. ABDOMEN: Globular, soft, and nontender. No masses. EXTREMITIES: No edema. No deformities. MEDICATIONS: Medications of November 07, 2019, reviewed. LABORATORY DATA: Laboratories of November 07, 2019, white count 4.7 and hemoglobin 8. Sodium 137, potassium 4.7, chloride 97, carbon dioxide 23, BUN is 57, and creatinine 9.06. LFTs normal, albumin 3.5. ASSESSMENT AND PLAN: 1. End-stage renal disease, stable. Continue current Friday, Friday, and Friday hemodialysis. No indication for any emergent hemodialysis. 2. Anemia, continue weekly Epogen. P.R.N. blood transfusion. 3. Hyperkalemia, resolved. The patient is scheduled for hemodialysis in a.m. Job ID: [id number]
--- NOTE | 2019-11-07 11:15 | PRG ---
DATE OF SERVICE: 11/07/2019 Mr. Ayala is unchanged. He is still alert, although has some slow mentation. We will need to restart a IV line as he needs more treatment for his ventilator associated pneumonia. Job ID: [id number]
--- NOTE | 2019-11-07 15:55 | PRG ---
DATE OF SERVICE: 11/07/2019 SUBJECTIVE: The patient is doing much better. OBJECTIVE: VITAL SIGNS: Temperature 98.9, pulse 71, respirations 18, and O2 saturation of 97% on room air, blood pressure 167/83. HEENT: Unremarkable. NECK: No JVD. LUNGS: Clear anteriorly. CARDIAC: S1 and S2 regular. ABDOMEN: Soft. EXTREMITIES: No edema. LABORATORY DATA: White blood cell count 4.7, hematocrit 22.3, and platelet count 131. Sodium 137, BUN 57, creatinine 9.1. ASSESSMENT: 1. Status post cardiac arrest secondary to hyperkalemia from noncompliance with dialysis. 2. Encephalopathy, which is improved. PLAN: Basically rehab issue at this point. I would recommend stopping antibiotics once completed 5 to 7 days of treatment. No further recommendations at this time. Pulmonary will sign off. Job ID: [id number]
--- NOTE | 2019-11-07 17:25 | PRG ---
DATE OF SERVICE: 11/06/2019 ADDENDUM: This is an addendum to the note of Dr. Angelita Cole. Mr. Ayala is a 44-year-old man with end-stage renal disease, on hemodialysis. Evidently, he missed an episode of dialysis and developed hyperkalemia with cardiac arrest. He was resuscitated and put in the ICU. This morning, he seems mentally slow, but this is evidently his baseline. He is otherwise alert, no distress. From our standpoint, he is clinically stable and will be transferred to a telemetry bed. Job ID: [id number]
[2019-11-07] MEDS ORDERED: Diphenoxylate HCl/Atropine Tablet PO SCH (18:30)
[2019-11-07] MEDS: Sodium Chloride 0.9% 1,000 ML IV SCH (18:35)
[2019-11-07] MEDS: Diphenoxylate HCl/Atropine Tablet PO SCH (20:38)
[2019-11-08 04:50] LABS: Eosinophils 1 % (0-10); Hemoglobin 8.8 g/dL (14.0-18.0); Lymphocytes 32 % (21-51); MDiff Complete? YES; Mean Corpuscular HGB CONC 35.7 g/dL (32.0-36.0); Mean Platelet Volume 6.8 fL (7.4-10.4); Monocytes 7 % (0-10); Neutrophil 60 % (42-75); Platelet Count 165 thou/uL (130-400); Platelet Morphology Comment Appears Adequate; RBC Distribution Width 12.6 % (11.5-14.5); Red Blood Cell (RBC) Count 2.51 mill/uL (4.70-6.10); White Blood Cell (WBC) Count 4.1 thou/uL (4.8-10.8)
[2019-11-08 04:57] LABS: ALT (SGPT) 23 U/L (8-55); AST (SGOT) 24 U/L (5-34); Albumin 3.7 g/dL (3.5-5.0); Alkaline Phosphatase 98 U/L (40-110); Anion Gap 27 mmol/L (10-20); BUN (Urea Nitrogen) 73 mg/dL (8.9-20.6); Bilirubin, Total 0.4 mg/dL (0.2-1.2); Calc. Creatinine Clearance 9 mL/min (70-130); Calcium 9.5 mg/dL (7.8-10.44); Carbon Dioxide 20 mmol/L (22-29); Chloride 96 mmol/L (98-107); Estimated GFR-MDRD 5; Globulin 3.3 g/dL (2.4-3.5); Glucose 91 mg/dL (70-105); Potassium 4.5 mmol/L (3.5-5.1); Sodium 138 mmol/L (136-145)
[2019-11-08] MEDS: Piperacillin/Tazobactam 2.25 GM in Sodium Chloride 0.9% 100 ML IVPB SCH ×3 (05:32→22:04)
[2019-11-08] MEDS: Acetaminophen 650 MG/20.3 ML UDCUP PO PRN (06:16)
--- NOTE | 2019-11-08 06:45 | PDOC.FM ---
- Subjective Subjective: NAEO. Patient complaining of left shoulder pain this AM. Patient states he is due for dialysis today. Patient denies any SOB, chest or abdominal pain, NVD. Tolerating PO. Has not had a BM. - Objective MAR Reviewed: Yes Vital Signs & Weight: Vital Signs (12 hours) Temp Pulse Resp BP BP Pulse Ox 11/08/19 04:00 97.7 F 75 16 164/85 H 11/08/19 02:09 73 130/76 11/08/19 00:30 96 190/94 H 11/08/19 00:00 96 190/94 H 11/07/19 20:37 73 173/86 H 11/07/19 20:00 98.7 F 73 16 173/86 H 96 Weight Admit Weight 82.4 kg Weight 78.471 kg Most Recent Monitor Data Heart Rate from ECG 80 NIBP 143/83 NIBP BP-Mean 103 Respiration from ECG 15 SpO2 100 I&O: 11/06/19 11/07/19 11/08/19 06:59 06:59 06:59 Intake Total 989.2 1208 730 Output Total 62 8 Balance 927.2 1200 730 Result Diagrams: 11/08/19 04:06 11/08/19 04:06 Phys Exam - Physical Examination Constitutional: NAD HEENT: PERRLA, moist MMs, sclera anicteric craniotomy scar Neck: supple, full ROM Respiratory: clear to auscultation bilateral Cardiovascular: RRR, no significant murmur, no rub Gastrointestinal: soft, non-tender, no distention, positive bowel sounds Musculoskeletal: no edema TTP of trapezius and deltoid muscles; FROM of all limbs Neurological: non-focal, moves all 4 limbs Psychiatric: normal affect Skin: no rash, normal turgor, cap refill <2 seconds Dx/Plan (1) Cardiac arrest Code(s): I46.9 - CARDIAC ARREST, CAUSE UNSPECIFIED Status: Acute (2) DMII (diabetes mellitus, type 2) Status: Acute (3) ESRD (end stage renal disease) Code(s): N18.6 - END STAGE RENAL DISEASE Status: Acute (4) HTN (hypertension) Code(s): I10 - ESSENTIAL (PRIMARY) HYPERTENSION Status: Acute (5) Hyperkalemia Code(s): E87.5 - HYPERKALEMIA Status: Acute (6) Seizure disorder Code(s): G40.909 - EPILEPSY, UNSP, NOT INTRACTABLE, WITHOUT STATUS EPILEPTICUS Status: Acute (7) UTI (urinary tract infection) Status: Acute - Plan Plan: This is a 44 yo male with a pmh of seizure disorder, AVM bleed requiring craniotomy, ESRD on HD Cardiac arrest with ROSC 2/2 Hyperkalemia Extubated 11/05 and doing well off vent - Mentation improving, continue to monitor RLL VAP CXR showed possible RLL infiltrate. - BCx pending - Vanc and zosyn (started 11/05). If patient loses IV access can consider starting levoquin and clindamycin. Will need abx for 5-7 days. Anion gap metabolic acidosis 2/2 uremia and lactic acidosis, resolved Elevate troponins 2/2 arrest and defibrillation Seizure disorder EEG showed no seizure activity - Continuing home keppra and dilantin Elevated BNP likely 2/2 ESRD Macrocytic anemia Slight decrease likely represents dilution, losses from dialysis, and stabilization after bleeding from biting tongue. - Low folate, pt will need supplementation ESRD - Dr. Shin consulted, will continue dialysis, MWF DM2 - Hyper/hypoglycemia protocol HTN - Resume home meds Hospital day 5 Code: Full GI prophylaxis: Pepcid DVT prophylaxis: SCDs Family: None at bedside Dispo: DC>48hrs Case discussed with Dr. Brown
[2019-11-08] MEDS ORDERED: Polyethylene Glycol 3350 17 GM Packet PO PRN (08:39)
[2019-11-08] MEDS: Diphenoxylate HCl/Atropine Tablet PO SCH ×2 (09:14→22:04)
[2019-11-08] MEDS: Famotidine/PF 20 mg/2ml Vial SLOW IVP SCH (09:14)
[2019-11-08] MEDS: Carvedilol 3.125 MG TAB PO SCH ×2 (09:14→22:04)
[2019-11-08] MEDS: Aspirin 81 mg Enteric Coated Tablet PO SCH (09:14)
[2019-11-08] MEDS: levETIRAcetam 500 MG TAB PO SCH ×2 (09:15→22:04)
[2019-11-08] MEDS: hydrALAZINE 25 MG TAB PO SCH ×3 (09:18→22:04)
[2019-11-08 09:32] LABS: Vancomycin, Random 23.2 ug/mL (See Comment)
--- NOTE | 2019-11-08 09:35 | PRG ---
DATE OF SERVICE: 11/08/2019 SUBJECTIVE: Mr. Ayala is a 44-year-old male, admitted for cardiorespiratory arrest secondary to his hyperkalemia. He underwent daily dialysis. His serum potassium has dramatically improved. He is doing better. He is extubated, mentating well. OBJECTIVE: VITAL SIGNS: Blood pressure 164/85, heart rate 75, respiratory rate 16, temperature 97.7. GENERAL: The patient is awake, alert, comfortable, not in overt distress. SKIN: Adequate turgor. HEENT: Slightly pale conjunctivae. Anicteric sclerae. NECK: No neck mass. No carotid bruits. No JVD. CHEST: No deformities. LUNGS: Clear breath sounds. No wheezing. No crackles. HEART: Normal sinus rhythm. No murmurs, gallops, or rubs. ABDOMEN: Globular. Soft. Nontender. No masses. EXTREMITIES: No edema. No deformities. MEDICATIONS: Medications of November 08, 2019, reviewed. LABORATORY DATA: Laboratories of November 08, 2019; white count 4.1, hemoglobin 8.8, sodium 138, potassium 4.5, chloride 96, carbon dioxide 20, BUN 73, creatinine 11.46, calcium 9.5. LFTs normal. ASSESSMENT AND PLAN: 1. End-stage renal disease, stable. We will continue current hemodialysis regimen. Fluid removal as tolerated. 2. Hyperkalemia, resolved. Continue renal diet. 3. Status post cardiorespiratory arrest mentating better. The patient is hemodynamically stable. Agree with current management. Job ID: [id number]
--- NOTE | 2019-11-08 11:19 | PRG ---
DATE OF SERVICE: 11/08/2019 ADDENDUM: This is an addendum to the note of Dr. Kavita Edward. We were able to re-establish IV access and Mr. Ayala is back on his VAP antibiotics. These need to be continued for a total of five days and currently he is on day two. He is in good spirits this morning and in fact, he is much more awake and alert than usual. He is getting ready for dialysis. Job ID: [id number]
[2019-11-08 14:48] VITALS: BMI 27.9
[2019-11-08] MEDS: Lisinopril 5 MG TAB PO SCH (16:43)
[2019-11-08] MEDS: Sodium Chloride 0.9% 1,000 ML IV SCH (22:06)
[2019-11-09 04:47] LABS: Band 1 % (5-11); Eosinophils 1 % (0-10); Hemoglobin 9.1 g/dL (14.0-18.0); Hypochromia SLIGHT = 6-15 cells (100X) (0-5/hpf); Lymphocytes 23 % (21-51); MDiff Complete? YES; Mean Corpuscular HGB CONC 35.2 g/dL (32.0-36.0); Mean Corpuscular Hemoglobin 34.7 pg (27.0-31.0); Mean Corpuscular Volume 98.8 fL (78.0-98.0); Mean Platelet Volume 6.6 fL (7.4-10.4); Monocytes 7 % (0-10); Neutrophil 68 % (42-75); Platelet Count 186 thou/uL (130-400); Platelet Morphology Comment Appears Adequate; RBC Distribution Width 12.7 % (11.5-14.5); Red Blood Cell (RBC) Count 2.63 mill/uL (4.70-6.10); White Blood Cell (WBC) Count 4.4 thou/uL (4.8-10.8)
[2019-11-09 04:58] LABS: ALT (SGPT) 21 U/L (8-55); AST (SGOT) 20 U/L (5-34); Albumin 3.7 g/dL (3.5-5.0); Alkaline Phosphatase 98 U/L (40-110); Anion Gap 19 mmol/L (10-20); BUN (Urea Nitrogen) 36 mg/dL (8.9-20.6); Bilirubin, Total 0.3 mg/dL (0.2-1.2); Calc. Creatinine Clearance 13 mL/min (70-130); Calcium 9.5 mg/dL (7.8-10.44); Carbon Dioxide 25 mmol/L (22-29); Chloride 100 mmol/L (98-107); Estimated GFR-MDRD 7; Globulin 3.4 g/dL (2.4-3.5); Glucose 93 mg/dL (70-105); Potassium 4.1 mmol/L (3.5-5.1); Protein, Total 7.1 g/dL (6.0-8.3); Sodium 140 mmol/L (136-145)
[2019-11-09] MEDS: Piperacillin/Tazobactam 2.25 GM in Sodium Chloride 0.9% 100 ML IVPB SCH (05:12)
--- NOTE | 2019-11-09 06:48 | PDOC.FM ---
- Subjective Subjective: NAEO. Patient resting comfortably in bed. Patient stating that he is ready to go home. He feels much better. Denies any difficulty breathing, SOB, chest or abdominal pain, NVD. Patient tolerating PO. Ambulating. - Objective MAR Reviewed: Yes Vital Signs & Weight: Vital Signs (12 hours) Temp Pulse Resp BP BP Pulse Ox 11/09/19 04:13 98.7 F 82 20 160/79 H 95 11/08/19 22:04 77 163/87 H 11/08/19 20:00 98.0 F 77 16 163/87 H 94 L Weight Admit Weight 82.4 kg Weight 72.6 kg Most Recent Monitor Data Heart Rate from ECG 80 NIBP 143/83 NIBP BP-Mean 103 Respiration from ECG 15 SpO2 100 I&O: 11/07/19 11/08/19 11/09/19 06:59 06:59 06:59 Intake Total 1208 730 Output Total 8 Balance 1200 730 Result Diagrams: 11/09/19 04:20 11/09/19 04:20 Phys Exam - Physical Examination Constitutional: NAD HEENT: PERRLA, moist MMs, sclera anicteric Neck: supple, full ROM Respiratory: clear to auscultation bilateral Cardiovascular: RRR, no significant murmur, no rub Gastrointestinal: soft, non-tender, no distention, positive bowel sounds Musculoskeletal: no edema fistula on L arm Neurological: non-focal, normal sensation, moves all 4 limbs Psychiatric: normal affect Skin: no rash, normal turgor, cap refill <2 seconds Dx/Plan (1) Cardiac arrest Code(s): I46.9 - CARDIAC ARREST, CAUSE UNSPECIFIED Status: Acute (2) DMII (diabetes mellitus, type 2) Status: Acute (3) ESRD (end stage renal disease) Code(s): N18.6 - END STAGE RENAL DISEASE Status: Acute (4) HTN (hypertension) Code(s): I10 - ESSENTIAL (PRIMARY) HYPERTENSION Status: Acute (5) Hyperkalemia Code(s): E87.5 - HYPERKALEMIA Status: Acute (6) Seizure disorder Code(s): G40.909 - EPILEPSY, UNSP, NOT INTRACTABLE, WITHOUT STATUS EPILEPTICUS Status: Acute (7) UTI (urinary tract infection) Status: Acute - Plan Plan: This is a 44 yo male with a pmh of seizure disorder, AVM bleed requiring craniotomy, ESRD on HD Cardiac arrest with ROSC 2/2 Hyperkalemia Extubated 11/05 and doing well off vent - Mentation improving, continue to monitor RLL VAP CXR showed possible RLL infiltrate. - BCx NGTD - Vanc and zosyn (started 11/05). Will send patient home with 3 days of levoquin and clindamycin. This would get patient 7 days of abx. Anion gap metabolic acidosis 2/2 uremia and lactic acidosis, resolved Elevate troponins 2/2 arrest and defibrillation Seizure disorder EEG showed no seizure activity - Continuing home keppra and dilantin Elevated BNP likely 2/2 ESRD Macrocytic anemia Slight decrease likely represents dilution, losses from dialysis, and stabilization after bleeding from biting tongue. - Low folate, pt will need supplementation ESRD - Dr. Shin consulted, will continue dialysis, MWF DM2 - Hyper/hypoglycemia protocol HTN - Resume home [facility] Hospital day 6 Code: Full GI prophylaxis: Pepcid DVT prophylaxis: SCDs Family: None at bedside Dispo: DC>48hrs Case discussed with Dr. Brown
[2019-11-09 07:26] VITALS: BP 178/87; TEMP 98.2
--- NOTE | 2019-11-09 08:23 | PRG ---
DATE OF SERVICE: 11/09/2019 SUBJECTIVE: Mr. Ayala is a 44-year-old male with ESRD. He has undergone hemodialysis and is doing well. He was initially admitted for cardiac arrest secondary to hyperkalemia. He is feeling better. Denies any chest pain or shortness of breath. OBJECTIVE: VITAL SIGNS: Blood pressure 160/79, heart rate 82, respiratory rate 20, temperature 98.7, and pulse ox 95%. GENERAL: Noted to be awake, alert, comfortable, not in overt distress. SKIN: Adequate turgor. HEENT: He has slightly pale conjunctivae. Anicteric sclerae. NECK: No neck mass. No carotid bruits. No JVD. CHEST: No deformities. LUNGS: Clear breath sounds. HEART: Normal sinus rhythm. No murmurs, no gallops, no rubs. ABDOMEN: Globular, soft, nontender. No masses. EXTREMITIES: No edema. No deformities. MEDICATIONS: Medications of November 09, 2019, were reviewed. LABORATORY DATA: November 09, 2019; white count 4.4, hemoglobin 9.1. Sodium 140, potassium 4.1, chloride 100, carbon dioxide 25, BUN 36, creatinine 8.1, calcium 9.5, AST 20, ALT 21, albumin 3.7. ASSESSMENT AND PLAN: 1. End-stage renal disease, stable continue current hemodialysis regimen. Fluid removal as tolerated. No changes will be made with his current dialysis regimen. 2. Hyperkalemia, resolved. Continue renal diet. 3. Anemia-on weekly Epogen. Continue current management. Okay for discharge any time from Renal point of view. Job ID: [id number]
[2019-11-09] MEDS: Aspirin 81 mg Enteric Coated Tablet PO SCH (08:38)
[2019-11-09] MEDS: Lisinopril 5 MG TAB PO SCH (08:39)
[2019-11-09] MEDS: levETIRAcetam 500 MG TAB PO SCH (08:40)
[2019-11-09] MEDS: hydrALAZINE 25 MG TAB PO SCH (08:40)
[2019-11-09] MEDS: Diphenoxylate HCl/Atropine Tablet PO SCH (08:41)
[2019-11-09] MEDS: Famotidine/PF 20 mg/2ml Vial SLOW IVP SCH (08:41)
[2019-11-09] MEDS ORDERED: Amlodipine 5 MG TAB PO SCH (09:00)
--- NOTE | 2019-11-09 10:42 | PRG ---
DATE OF SERVICE: ADDENDUM: This is an addendum to the note of Dr. Kavita Edward. Mr. Ayala is in good spirits this morning. He is awake and alert. No cough or fever. He is anxious to go home. We will place him on Levaquin and Cleocin to complete three more days of treatment for his VAP. He will follow up for dialysis as well. We are adjusting his blood pressure medications. He will follow up with his PCP for further instructions in this. Job ID: [id number]
[2019-11-09] MEDS ORDERED: Carvedilol 6.25 MG TAB PO SCH (17:00)
== END 2019-11-09 10:42 | disposition home or self-care (01) | DRG 640 ==
LOC: EDBD 23:50 → ERS 23:50 → MERGE 11-03 01:08 → ERHOLD 11-03 01:08 → CCU 11-03 02:24 → 2NO 11-06 18:28
PROVIDERS: ADMIT Family Medicine; ATTEND Family Medicine
PROC: 05H633Z Insertion of Infusion Device into Left Subclavian Vein, Percutaneous Approach (ICD-10-PCS; principal; 2019-11-03)
PROC: 5A1945Z Respiratory Ventilation, 24-96 Consecutive Hours (ICD-10-PCS; 2019-11-03)
PROC: 5A1D70Z Performance of Urinary Filtration, Intermittent, Less than 6 Hours Per Day (ICD-10-PCS; 2019-11-03)
DX: E87.5 Hyperkalemia (principal); N18.6 End stage renal disease; I46.8 Cardiac arrest due to other underlying condition; I50.33 Acute on chronic diastolic (congestive) heart failure; J96.00 Acute respiratory failure, unspecified whether with hypoxia or hypercapnia; I13.2 Hypertensive heart and chronic kidney disease with heart failure and with stage 5 chronic kidney disease, or end stage renal disease; N39.0 Urinary tract infection, site not specified; G93.40 Encephalopathy, unspecified; J95.851 Ventilator associated pneumonia; D63.1 Anemia in chronic kidney disease; E11.65 Type 2 diabetes mellitus with hyperglycemia; E87.2 Acidosis; E11.22 Type 2 diabetes mellitus with diabetic chronic kidney disease; G40.909 Epilepsy, unspecified, not intractable, without status epilepticus; D53.9 Nutritional anemia, unspecified; Z79.82 Long term (current) use of aspirin; Z79.899 Other long term (current) drug therapy; Z91.15 Patient's noncompliance with renal dialysis; Z99.2 Dependence on renal dialysis; Z78.1 Physical restraint status; Z91.14 Patient's other noncompliance with medication regimen; I95.9 Hypotension, unspecified; Y84.8 Other medical procedures as the cause of abnormal reaction of the patient, or of later complication, without mention of misadventure at the time of the procedure
CPT/HCPCS: 31500; 36415; 36416; 36556; 51702; 71045; 80053; 80177; 80185; 80202; 81001; 81003; 81015; 82553; 82607; 82746; 82805; 83605; 83735; 83880; 84100; 84145; 84484; 85007; 85025; 85027; 85610; 85730; 87040; 87077; 87086; 87186; 89220; 90935; 93005; 93010; 93306; 94002; 94003; 94760; 95816; 95819; 96365; 96367; 96375; 96376; G0257; J0360; J0696; J1815; J1953; J2060; J2543; J2704; J3010; J3490; J7050; J7620; Q2009; Q5105; S0028

== ENCOUNTER 2020-05-18 16:32 | Inpatient (IN) | payer MEDICARE, OTHER ==
[2020-05-18] MEDS ORDERED: Acetaminophen 500 MG TAB ONE (17:41)
[2020-05-18 17:45] LABS: %Neutrophils 47.6 % (42.0-75.0); Hemoglobin 10.3 g/dL (14.0-18.0); Mean Corpuscular HGB CONC 32.8 g/dL (32.0-36.0); Mean Corpuscular Hemoglobin 33.8 pg (27.0-31.0); Mean Platelet Volume 8.8 fL (7.4-10.4); Platelet Count 114 thou/uL (130-400); Red Blood Cell (RBC) Count 3.04 mill/uL (4.70-6.10)
[2020-05-18 17:46] LABS: #Eosinphils 0.1 thou/uL (0.0-0.7); #Lymphocytes 1.7 thou/uL (1.20-3.40); #Monocytes 0.3 thou/uL (0.11-0.59); #Neutrophils 1.9 thou/uL (1.40-6.50); %Basophils 0.9 % (0.0-1.0); %Eosinophils 1.5 % (0.0-10.0); %Monocytes 7.9 % (0.0-10.0)
[2020-05-18 18:03] LABS: MDiff Complete? YES; Macrocytosis SLIGHT = 6-15 cells (100X) (0-5/hpf); Platelet Morphology Comment Appears Decreased
[2020-05-18 18:04] LABS: ALT (SGPT) 21 U/L (8-55); AST (SGOT) 17 U/L (5-34); Albumin 3.9 g/dL (3.5-5.0); Alkaline Phosphatase 79 U/L (40-110); Anion Gap 22 mmol/L (10-20); BUN (Urea Nitrogen) 116 mg/dL (8.9-20.6); Bilirubin, Total 0.3 mg/dL (0.2-1.2); Calc. Creatinine Clearance 0 mL/min (70-130); Calcium 8.7 mg/dL (7.8-10.44); Carbon Dioxide 22 mmol/L (22-29); Chloride 102 mmol/L (98-107); Estimated GFR-MDRD 3; Globulin 2.9 g/dL (2.4-3.5); Glucose 76 mg/dL (70-105); Magnesium 3.5 mg/dL (1.6-2.6); Phosphorus 4.5 mg/dL (2.3-4.7); Protein, Total 6.8 g/dL (6.0-8.3); Sodium 138 mmol/L (136-145)
[2020-05-18 18:10] LABS: Potassium 8.1 mmol/L (3.5-5.1)
[2020-05-18] MEDS ORDERED: Insulin Regular 300 UNITS/3 ML VIAL ONE (18:36)
[2020-05-18] MEDS ORDERED: Calcium Gluc 4.6 MEQ/10 ML (100 MG/ML) ONE (18:36)
[2020-05-18] MEDS ORDERED: Sodium Bicarb 50 MEQ/50 ML Abboject 8.4% SYRINGE ONE (18:36)
[2020-05-18] MEDS ORDERED: Dextrose 50% Abboject 50 ML SYRINGE ONE (18:36)
--- NOTE | 2020-05-18 19:34 | PDOC.FPRHP ---
- History of Present Illness Chief Complaint: edema History of Present Illness: Pt is a 45yo male with PMH ESRD on HD who came to ED due to swelling. He states that he skipped his HD appointments on Friday and Friday this week. Last time he went was on 05/12/20. He says he doesn't want to go to dialysis because he wants to stay home and spend time with his children. His family members convinced him to come to the ED today because he "looked swollen ". Upon arrival, he was found to have a potassium of 8.1. After being told about this, he continued to be resistant to doing dialysis and stated "I don't understand why it is so high. 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 ED Course: 10mg albuterol sulfate nebs, 10units novolin, 1 amp D50, 1 amp bicarb, 1 g calcium gluconate, 1g tylenol - Allergies/Adverse Reactions Allergies Allergy/AdvReac Type Severity Reaction Status Date / Time Penicillins Allergy Intermediate Hives Verified 12/03/19 23:53 - Home Medications Medication Instructions Recorded Confirmed Type Phenytoin Sodium Extended 400 mg PO HS 04/20/17 08/15/19 History Carvedilol [Coreg] 3.125 mg PO BID #60 tab 05/23/17 08/15/19 Rx Cholecalciferol (Vitamin D3) 2,000 units PO DAILY 10/20/18 08/15/19 History [Vitamin D3] Sertraline HCl [Zoloft] 100 mg PO QAM 10/20/18 08/15/19 History Atorvastatin Calcium [Lipitor] 40 mg PO HS #30 tab 10/26/18 08/15/19 Rx hydrALAZINE [Apresoline] 50 mg PO TID #90 tab 10/26/18 08/15/19 Rx levETIRAcetam [Keppra] 500 mg PO BID #60 tab 02/12/19 08/15/19 Rx Diphenoxylate HCl/Atropine 1 tab PO PRN PRN 05/11/19 08/15/19 History [Lomotil] Ferric Citrate [Auryxia] 1 tab PO TID 05/11/19 08/15/19 History Lisinopril [Zestril] 1 tab PO BID 05/11/19 08/15/19 History Aspirin [Aspir-Low] 81 mg PO DAILY 08/15/19 08/15/19 History traMADol HCl [Tramadol HCl] 50 mg PO BID 08/15/19 08/15/19 History Epoetin Murali-Epbx [Retacrit] 7,500 unit SC Q7D vial 08/16/19 Rx Aspirin [Ecotrin Low Strength] 81 mg PO DAILY 11/03/19 11/03/19 History Atorvastatin Calcium 40 mg PO DAILY 11/03/19 11/03/19 History Carvedilol [Coreg] 3.125 mg PO BID 11/03/19 11/03/19 History Cholecalciferol (Vitamin D3) 2,000 unit PO DAILY 11/03/19 11/03/19 History [Vitamin D3] Epoetin Murali-Epbx [Retacrit] 7,500 unit SC Q7D 11/03/19 11/03/19 History Lisinopril 5 mg PO DAILY 11/03/19 11/03/19 History Phenytoin Sodium Extended 400 mg PO HS 11/03/19 11/03/19 History [Dilantin] Sertraline HCl [Zoloft] 100 mg PO DAILY 11/03/19 11/03/19 History hydrALAZINE [Apresoline] 50 mg PO TID 11/03/19 11/03/19 History levETIRAcetam [Keppra] 500 mg PO BID 11/03/19 11/03/19 History traMADol HCl [Tramadol HCl] 50 mg PO BID 11/03/19 11/03/19 History Amlodipine [Norvasc] 5 mg PO DAILY #30 tab 11/09/19 Rx Clindamycin [Cleocin] 450 mg PO Q6HR #12 cap 11/09/19 Rx Epoetin Murali-Epbx [Retacrit] 7,500 unit SC Q7D vial 11/09/19 Rx Levofloxacin 750 mg PO DAILY #3 tablet 11/09/19 Rx - History PMHx: ESRD on HD, DM, HTN, Seizure disorder, AVM rupture PSHx: crainiotomy, L arm fistula, R 5th toe amputation FHx: noncontributory Social: former smoker, smoked 1/2 ppd, quit 10 years ago, no alcohol or drug use - Review of Systems General: denies: fever/chills, fatigue Eyes: denies: vision changes ENT: denies: nasal congestion Respiratory: denies: cough, congestion, shortness of breath Cardiovascular: denies: chest pain, palpitation Gastrointestinal: denies: nausea, vomiting, diarrhea Genitourinary: denies: dysuria Skin: denies: rashes Musculoskeletal: reports: tenderness, swelling Neurological: denies: numbness, syncope - Vital signs BP: 221/113, HR 69, RR 20, 99% on RA, T 98.4F - Physical Exam -Constitutional: AOx3, speech slow HEENT: grossly normal vision, grossly normal hearing -HEENT: crainotomy scar on right frontal bone Neck: supple, FROM Heart: RRR, normal S1/S2, pulses present Lungs: CTAB, no respiratory distress, no wheezing Abdomen: soft, non-tender Musculoskeletal: normal structure, normal tone Neurological: no focal deficit, normal sensation Skin: no rash/lesions, capillary refill <2 seconds -Skin: left arm AV fistula with thrill -Psychiatric: poor judgement and insight FMR H&P: Results - Labs Result Diagrams: 05/18/20 17:19 05/18/20 17:19 Lab results: WBC 4.0 thou/uL (4.8-10.8) L 05/18/20 17:19 Hgb 10.3 g/dL (14.0-18.0) L 05/18/20 17:19 Hct 31.3 % (42.0-52.0) L 05/18/20 17:19 MCV 103.0 fL (78.0-98.0) H 05/18/20 17:19 Plt Count 114 thou/uL (130-400) L 05/18/20 17:19 Neutrophils % 47.6 % (42.0-75.0) 05/18/20 17:19 Sodium 138 mmol/L (136-145) 05/18/20 17:19 Potassium 8.1 mmol/L (3.5-5.1) H* 05/18/20 17:19 Chloride 102 mmol/L (98-107) 05/18/20 17:19 Carbon Dioxide 22 mmol/L (22-29) 05/18/20 17:19 BUN 116 mg/dL (8.9-20.6) H 05/18/20 17:19 Creatinine 16.24 mg/dL (0.7-1.3) H 05/18/20 17:19 Glucose 76 mg/dL (70-105) 05/18/20 17:19 Calcium 8.7 mg/dL (7.8-10.44) 05/18/20 17:19 Total Bilirubin 0.3 mg/dL (0.2-1.2) 05/18/20 17:19 AST 17 U/L (5-34) 05/18/20 17:19 ALT 21 U/L (8-55) 05/18/20 17:19 Alkaline Phosphatase 79 U/L (40-110) 05/18/20 17:19 Serum Total Protein 6.8 g/dL (6.0-8.3) 05/18/20 17:19 Albumin 3.9 g/dL (3.5-5.0) 05/18/20 17:19 - EKG Interpretation EKG: peaked T waves FMR H&P: A/P - Plan #Hyperkalemia 2/2 missed dialysis - K 8.1, ekg showed peaked T waves. BUN/CR 116/16.24, Mg 3.5 - In ED given Ca gluconate, Insulin, D50, bicarb, albuterol nebs. Dr Shin consulted from ED and he plans on emergent HD - will recheck labs after dialysis - admitted to [facility], continuous tele monitor, consulted pulmonology, appreciate recs - consulted CM for possible home health and palliative care for goals of care #HTN -BP in ED Ps~200, unsure if pt was taking his medications as prescribed -restarted home meds -will continue to monitor #Anemia -Hgb 10.3, MCV 103. stable from previous admissions -has been worked up previously and found folate to be low #ESRD -consulted nephrology, Dr Shin -receiving emergent HD #DM - A1c 4.5 -SSI, glucose checks ACHS #seizure disorder -restarted home meds: phenytoin, keppra -seizure precautions -pending: phenytoin level Diet: CC DVT ppx: heparin Code: Full PCP: NOHEMI Yip Dispo: Admit to inpatient IMCU, pending emergent HD, LOS>48hours FMR H&P: Upper Level - Plan Date/Time: 05/18/201933 I, Kavita Edward MD, have evaluated this patient and agree with findings/plan as outlined by pr internship resident. Pertinent changes/additions are listed here. This is a 45yo M with PMH of ESRD on HD, DM2, sezure disorder who presents to the ER after missing his last 2 sessions of dialysis. Last dialysis was 6 days ago. He was brought to the ER by the urging of his family. He was having LE swelling and overall feeling more bloated. Patient resistant to staying in the hospital for dialysis. Says he feels "perfectly fine" and doesn't understand why his potassium is high as he hasnt been eating any avacados or bananas. See pr internship note for full histories. In the ER, Dr. Marcial talked with Dr. Shin. Patient to get emergent dialysis after K found to be 8.1. Given calcium gluconate, 1 amp bicarb, albuterol, 10u insulin, 1amp D50, and tylenol. PE: HEENT: scar on R scalp, EOMI, PERRL, trachea midline, Cards: RRR, no murmurs, no TTP of chest, Abd: non distended, non tender, normal BS, MSK: no NUVIA, fistula with palpable thrill LUE, Psych: axox3, but flat affect and very poor insight and judgement, slow rate of speech. Plan: Hyperkalemia 2/2 Missed dialysis. ESRD on HD MWF, missed last 2 sessions. K 8.1. Peaked T waves on EKG. - Admit to IMCU, inpt. - Dr. Shin (nephro) consulted from the ER, appreciate recommendations - Plan to get emergent dialysis, plan for dialysis tonight and tomorrow - F/u labs in the AM - Monitor on tele - CM to discuss possibly HH with patient - Diabetes and kidney failure education; patient with poor understanding of disease proces ESRD on HD MWF dialysis schedule. BUN/Cr 116/16.24, above baseline. - see above HTN BP severely elevated in the ER. - PRNs avaiable, getting dialysis, will restart home meds DM2 - A1c pending, SS Macrocytic anemia H/H 10.3/31.3, MCV 103. Likely 2/2 CKD. At baseline. Folate previously low. - Will monitor Hx of seizures On phenytoin, keppra. - Will get phenytoin level - Seizure precautions Dispo: admit to IMCU, inpt Diet: CC Code: FULL Ppx: heparin PCP: DANG Yip Case discussed with Dr. Villagomez
[2020-05-18] MEDS ORDERED: Albuterol Sulfate 2.5 mg/3 ml Neb ONE ×2 (19:37)
[2020-05-18] MEDS ORDERED: Albuterol Sulfate 2.5 mg/0.5 ml Neb ONE ×2 (19:37)
[2020-05-18] MEDS ORDERED: Ondansetron ODT 4 MG TAB PO PRN (19:57)
[2020-05-18] MEDS ORDERED: Acetaminophen 650 MG Suppository PR PRN (19:57)
[2020-05-18] MEDS ORDERED: Ondansetron PF 4 MG/2 ML Vial IVP PRN (19:57)
[2020-05-18] MEDS ORDERED: HumaLOG 300 UNITS/3 ML VIAL SC PRN ×2 (20:06)
[2020-05-18] MEDS ORDERED: Dextrose 50% Abboject 50 ML SYRINGE SLOW IVP PRN (20:06)
[2020-05-18] MEDS ORDERED: Dextrose 5% in Water 1,000 ML IV PRN (20:06)
[2020-05-18 23:06] LABS: Hemoglobin A1c 4.5 % (4.0-6.0)
[2020-05-18] MEDS ORDERED: hydrALAZINE 25 MG TAB PO SCH (23:30)
[2020-05-18] MEDS ORDERED: Carvedilol 3.125 MG TAB PO SCH (23:30)
[2020-05-18] MEDS: Heparin 5,000 UNITS/ML VIAL SC SCH (23:48)
[2020-05-19] MEDS ORDERED: Melatonin 3 MG TAB PO PRN (01:14)
[2020-05-19] MEDS: Labetalol HCl 100 MG/20 ML VIAL SLOW IVP PRN ×2 (01:17→16:18)
[2020-05-19] MEDS: Acetaminophen 325 MG TAB PO PRN ×3 (01:18→12:32)
[2020-05-19] MEDS ORDERED: hydrOXYzine 10 MG TAB PO SCH (01:30)
[2020-05-19] MEDS ORDERED: Dextrose 5% in Water 1,000 ML IV PRN (02:41)
[2020-05-19] MEDS ORDERED: HumaLOG 300 UNITS/3 ML VIAL SC PRN (02:41)
[2020-05-19] MEDS ORDERED: Dextrose 50% Abboject 50 ML SYRINGE SLOW IVP PRN (02:41)
[2020-05-19 03:39] LABS: #Eosinphils 0.1 thou/uL (0.0-0.7); #Lymphocytes 1.4 thou/uL (1.20-3.40); #Monocytes 0.4 thou/uL (0.11-0.59); #Neutrophils 1.9 thou/uL (1.40-6.50); %Basophils 0.5 % (0.0-1.0); %Eosinophils 1.5 % (0.0-10.0); %Monocytes 9.4 % (0.0-10.0); %Neutrophils 50.5 % (42.0-75.0); Hemoglobin 10.9 g/dL (14.0-18.0); Mean Corpuscular HGB CONC 35.1 g/dL (32.0-36.0); Mean Platelet Volume 8.5 fL (7.4-10.4); Platelet Count 103 thou/uL (130-400); RBC Distribution Width 11.9 % (11.5-14.5); Red Blood Cell (RBC) Count 3.04 mill/uL (4.70-6.10); White Blood Cell (WBC) Count 3.8 thou/uL (4.8-10.8)
[2020-05-19 04:02] LABS: Anion Gap 17 mmol/L (10-20); BUN (Urea Nitrogen) 57 mg/dL (8.9-20.6); Calc. Creatinine Clearance 0 mL/min (70-130); Calcium 8.4 mg/dL (7.8-10.44); Carbon Dioxide 29 mmol/L (22-29); Chloride 97 mmol/L (98-107); Estimated GFR-MDRD 6; Glucose 124 mg/dL (70-105); Potassium 4.6 mmol/L (3.5-5.1); Sodium 138 mmol/L (136-145)
[2020-05-19] MEDS ORDERED: hydrALAZINE 20 MG/ML VIAL SLOW IVP PRN (04:25)
--- NOTE | 2020-05-19 06:12 | PDOC.FM ---
- Subjective Subjective: patient reports a mild headache that started this morning he denies CP, SOB, and vision changes. He also reports L posterior thigh pain he describes as a tight/crampy feeling. - Objective MAR Reviewed: Yes Vital Signs & Weight: Vital Signs (12 hours) Temp Pulse Ox 05/19/20 05:00 98.5 F 05/19/20 01:05 97.9 F 05/18/20 23:27 97.9 F 05/18/20 23:00 100 Weight Weight 77.836 kg I&O: 05/17/20 05/18/20 05/19/20 06:59 06:59 06:59 Intake Total 120 Balance 120 Result Diagrams: 05/19/20 03:12 05/19/20 03:12 Phys Exam - Physical Examination Constitutional: NAD HEENT: moist MMs, sclera anicteric Respiratory: no wheezing, no rales, no rhonchi, clear to auscultation bilateral Cardiovascular: RRR, no significant murmur, no rub Gastrointestinal: soft, non-tender, no distention, positive bowel sounds Musculoskeletal: no edema, pulses present AV graft in L upper arm, thrill present Dx/Plan - Plan Plan: Hyperkalemia - likely 2/2 missed dialysis, K 8.1 on admission with peaked T waves, hyperkalemia treatment started with emergent HD - admitted to IMCU with continuous tele monitor - CM and palliative consulted for dc planning - Pulm consulted HTN - BP in ED >200, Question of compliance - home meds, consider increasing Coreg and switching Norvasc to Procardia - will continue to monitor Anemia - Hgb 10.3, MCV 103. stable - Previous low folate ESRD - consulted nephrology, Dr Shin - received emergent HD, possible plan for HD today per Dr. Shin DM - well controlled with A1c 4.5 - Stop DM protocol seizure disorder - restarted home meds: phenytoin, keppra - seizure precautions - Keppra level Diet: CC DVT ppx: heparin Code: Full PCP: NOHEMI Yip Dispo: Admitted to inpatient IMCU, likely transfer to floor today, LOS>48hours pending DC needsd Addendum - Attending - Attending Attestation Date/Time: 05/19/20 1115 I personally evaluated the patient and discussed the management with Dr. Romero. I agree with the History, Examination, Assessment and Plan documented above with any addition or exceptions noted below. Patient getting repeat HD. Needs improved BP control. Awaiting nephro recs.
[2020-05-19] MEDS: Heparin 5,000 UNITS/ML VIAL SC SCH ×2 (08:26→14:37)
[2020-05-19] MEDS: hydrALAZINE 25 MG TAB PO SCH ×2 (08:27→14:36)
[2020-05-19] MEDS ORDERED: Carvedilol 3.125 MG TAB PO SCH (09:00)
[2020-05-19] MEDS ORDERED: Atorvastatin Calcium 40 MG TAB PO SCH (09:00)
[2020-05-19] MEDS ORDERED: levETIRAcetam 500 MG TAB PO SCH (09:00)
[2020-05-19] MEDS ORDERED: Aspirin 81 mg Enteric Coated Tablet PO SCH (09:00)
[2020-05-19] MEDS ORDERED: Lisinopril 20 MG TAB PO SCH (09:00)
[2020-05-19] MEDS ORDERED: Amlodipine 10 MG TAB PO SCH (09:00)
[2020-05-19 12:36] VITALS: BMI 25.3
[2020-05-19] MEDS ORDERED: Methyl Salicylate/Menthol 85 GM TUBE TOP PRN (13:48)
[2020-05-19 13:58] LABS: SARS-CoV-2 MS2 Positive; SARS-CoV-2 N Gene Negative; SARS-CoV-2 S Gene Negative; SARS-CoV-2 by NAA Not Detected (NotDetected); SARS-CoV-2 orf1ab Negative
[2020-05-19 14:35] VITALS: TEMP 97.6
--- NOTE | 2020-05-19 15:14 | CON ---
DATE OF CONSULTATION: HISTORY OF PRESENT ILLNESS: Wilbert Ayala is a 45-year-old gentleman, presented with markedly elevated potassium, required emergency dialysis. He was in no distress. He was in the MICU, reason for consult. He has end-stage renal disease, dialyzes 3 times a week. He has missed his two episodes of dialysis. He has done this many times before in the past. It is unclear why he is doing this, but clearly he probably has episodes of encephalopathy from time to time it appears. This morning, he is awake, alert, and responsive. Denies any pain, difficulty breathing, coughing, wheezing, or chest pain. PAST MEDICAL HISTORY: Diabetes, seizure disorder, renal failure, dialysis. PAST SURGICAL HISTORY: Craniotomy; multiple accesses; amputation of foot, toes. ALLERGIES: PENICILLIN. HOME MEDICINES: 1. Aspirin 81. 2. Hydralazine 50 three times a day. 3. Renvela three times. 4. Norvasc 10. 5. Atorvastatin 40. 6. Keppra 500 twice a day. 7. Coreg 3.125 twice a day. 8. . 9. Phenytoin 400. 10. Zoloft 100. SOCIAL HISTORY: No tobacco or alcohol abuse at this time. REVIEW OF SYSTEMS: Negative. PHYSICAL EXAMINATION: GENERAL: Awake, alert, and responsive, in no distress. VITAL SIGNS: Saturations are 100% on room air, pulse 70, respirations 18, blood pressure 130/80. CHEST: No wheezing, no crackles. CARDIAC: Normal S1 and S2. No gallops. ABDOMEN: No masses. ASSESSMENT AND PLAN: 1. Chronic renal failure secondary to uncontrolled diabetes. 2. Multiple missed failed dialysis with elevated potassium. Admission potassium this time was 8.1. This morning, his potassium is 4.6, creatinine is 10, BUN 57. Coronavirus serology was negative. His white count is 4000, hemoglobin and hematocrit are 10 and 30, platelet count 114. I will restart all his home antihypertensive medication. Seizure medication. He will continue dialysis. He needs counseling regarding why he is not coming for dialysis on a scheduled basis. Pulmonary/Critical Care will follow while in the MICU. We will notify Dr. Galarza, who has seen him in the past. Consultation note 70 minutes, 50% direct patient care. Job ID: [id number]
[2020-05-19 16:04] LABS: Amphetamine Not Detected (NotDetected); Barbiturates Screen Not Detected (NotDetected); Benzodiazepine Screen Not Detected (NotDetected); Cocaine Metabolite Screen Not Detected (NotDetected); Medtox Control Line Valid? VALID (VALID); Medtox Reader # READER 1; Methadone Not Detected (NotDetected); Methamphetamine Not Detected (NotDetected); Opiate Screen Not Detected (NotDetected); Oxycodone Screen Not Detected (NotDetected); Phencyclidine (PCP) Not Detected (NotDetected); THC/Cannabinoid Screen Not Detected (NotDetected); Tricyclic Screen Not Detected (NotDetected)
--- NOTE | 2020-05-19 19:18 | PRG ---
DATE OF SERVICE: 05/19/2020 SUBJECTIVE: Mr. Ayala is a 45-year-old male with ESRD, on maintenance hemodialysis. He was admitted for severe hyperkalemia. For that reason, he underwent an emergent hemodialysis for 3 hours last night. Potassium is much improved from 8.1 to a most recent value of 4.6. Please note, this patient has missed his dialysis for 3 consecutive sessions. I had long discussion with the patient regarding compliance. He will try to comply with his dialysis regimen. No other complaints today. He underwent hemodialysis today without any difficulty. Fluid removal was done. OBJECTIVE: VITAL SIGNS: Blood pressure is currently at 181/105, heart rate 85, respiratory rate 16, temperature 97.6, and O2 saturations 100%. GENERAL: The patient is awake, alert, sitting comfortable, not in distress. SKIN: Adequate turgor. HEENT: Pinkish conjunctivae. Anicteric sclerae. NECK: No neck mass. No carotid bruits. No JVD. CHEST: No deformities. LUNGS: Clear breath sounds. HEART: Normal sinus rhythm. No murmurs, gallops, or rubs. ABDOMEN: Globular, soft, and nontender. EXTREMITIES: No edema. MEDICATIONS: Medications of May 19, 2020 were reviewed. LABORATORY DATA: On May 18, 2020, white count 4, and hemoglobin 10.3. On May 19, 2020, hemoglobin 10.9. Sodium 138, potassium 4.6, chloride 97, carbon dioxide 29, BUN 57, creatinine 10, glucose 124, and calcium 8.4. ASSESSMENT AND PLAN: 1. Hyperkalemia, much improved with hemodialysis. He did undergo two consecutive dialysis, one from yesterday and one this afternoon. He is doing well. 2. End-stage renal disease, stable. We will continue current Friday, Friday, and Friday hemodialysis. The patient was counseled regarding compliance with his dialysis treatments. Review of the last Kt/V suggests he is adequately dialyzed with the current dialysis regimen. 3. Hypertension. Advised on compliance with his BP medications. Consider increasing hydralazine from 50 to 100 mg tablet t.i.d. Job ID: [id number]
[2020-05-19 19:25] VITALS: BP 199/96
[2020-05-19] MEDS ORDERED: hydrALAZINE 25 MG TAB PO SCH (21:00)
[2020-05-20] MEDS ORDERED: NIFEdipine XL 30 MG TAB PO SCH (09:00)
--- NOTE | 2020-05-20 14:59 | DIS ---
DATE OF ADMISSION: 05/18/2020 DATE OF DISCHARGE: 05/19/2020 RESIDENT: Odell Romero MD. ADMITTING ATTENDING: Paula Villagomez MD. DISCHARGE ATTENDING: Aldo Menard MD CONSULTS: Nephrology, Dr. Shin. Palliative Care. PROCEDURES: The patient received hemodialysis twice. PRIMARY DIAGNOSIS: Hyperkalemia. SECONDARY DIAGNOSES: 1. Hypertension. 2. Anemia. 3. End-stage renal disease. 4. Diabetes type 2. 5. Seizure disorder. DISCHARGE MEDICATIONS: 1. Aspirin 81 mg p.o. daily. 2. Atorvastatin 40 mg p.o. daily. 3. Carvedilol 3.125 mg p.o. b.i.d. 4. Vitamin D3 2000 units p.o. daily. 5. Ferric citrate two tabs p.o. t.i.d. 420 mg. 6. Hydralazine 100 mg p.o. t.i.d. 7. Keppra 500 mg p.o. b.i.d. 8. Lisinopril 20 mg p.o. daily. 9. Loperamide 2 mg p.o. q.i.d. 10. Melatonin 3 mg p.o. at bedtime. 11. Nifedipine 30 mg p.o. daily. 12. Phenytoin 400 mg p.o. at bedtime. 13. Sertraline 100 mg p.o. daily. 14. Renvela two tablets p.o. t.i.d. 800 mg tablets. DISCONTINUED MEDICATIONS: Hydralazine 50 mg BID HISTORY OF PRESENT ILLNESS/HOSPITAL COURSE: The patient is a 45-year-old male with past medical history of end-stage renal disease, on hemodialysis, who came to the ER due to swelling. States that he skips his hemodialysis plans on Friday and Friday of the past week and did not want to go to dialysis because he wanted to stay in home and spend time with his family. Upon arrival to the ER, the patient was found to have potassium of 8.1. In the ER, the patient received albuterol, insulin, glucose, bicarb, calcium gluconate, and Tylenol. Nephrology was consulted out of the ER and he was taken to emergent dialysis overnight. The patient was admitted to the CCU and the next morning, he received hemodialysis again per Dr. Shin. The patient's potassium downtrend to 4.3 with morning labs after one round of dialysis. The patient was hypertensive into the 200s systolic on admission. After dialysis, blood pressure was down to the 180s. After two rounds of dialysis, blood pressure was down to the 140s to [address] Shin adjusted the patient's blood pressure medicines before discharge. DISPOSITION: Guarded. DISCHARGE INSTRUCTIONS: 1. Location: Home. 2. Diet: Renal. 3. Activity: As tolerated. 4. Followup: Follow up with your PCP in two weeks. Follow up with hemodialysis and Nephrology as scheduled. Job ID: [id number] GROVER
== END 2020-05-19 20:50 | disposition home or self-care (01) | DRG 640 ==
LOC: ERS 16:32 → IMCU/EMU 19:52 → 2NO 05-19 11:07
PROVIDERS: ADMIT Family Medicine; ATTEND Family Medicine
PROC: 5A1D70Z Performance of Urinary Filtration, Intermittent, Less than 6 Hours Per Day (ICD-10-PCS; 2020-05-18)
PROC: 5A1D70Z Performance of Urinary Filtration, Intermittent, Less than 6 Hours Per Day (ICD-10-PCS; principal; 2020-05-19)
DX: E87.5 Hyperkalemia (principal); N18.6 End stage renal disease; I12.0 Hypertensive chronic kidney disease with stage 5 chronic kidney disease or end stage renal disease; G93.40 Encephalopathy, unspecified; D53.9 Nutritional anemia, unspecified; Z20.828 Contact with and (suspected) exposure to other viral communicable diseases; E11.22 Type 2 diabetes mellitus with diabetic chronic kidney disease; G40.909 Epilepsy, unspecified, not intractable, without status epilepticus; Z99.2 Dependence on renal dialysis; Z98.890 Other specified postprocedural states; Z88.0 Allergy status to penicillin; Z79.899 Other long term (current) drug therapy; Z79.82 Long term (current) use of aspirin; Z88.1 Allergy status to other antibiotic agents; Z87.891 Personal history of nicotine dependence; Z89.439 Acquired absence of unspecified foot
CPT/HCPCS: 36415; 36416; 80048; 80053; 80177; 80185; 80306; 83036; 83735; 84100; 85025; 87635; 90935; 93005; 94644; 96374; 96375; G0257; J0360; J1644; J1815; J7611; U0003

== ENCOUNTER 2020-05-31 16:53 | Inpatient (IN) | payer MEDICARE, OTHER ==
[~2020-05-31 16:53] MED LIST changes: +Calcium Chloride 1 GM/10 ML Abboject SYRINGE ONE; +Dextrose 50% Abboject 50 ML SYRINGE ONE; +EPINEPHrine 1 MG/10 ML Abboject SYRINGE ONE; +Sodium Bicarb 50 MEQ/50 ML Abboject 8.4% SYRINGE ONE; -Sodium Chloride 0.9% 15 ML NEB ONE
[2020-05-31] MEDS ORDERED: Insulin Regular 300 UNITS/3 ML VIAL ONE (16:59)
[2020-05-31] MEDS ORDERED: Albuterol Sulfate 2.5 mg/3 ml Neb ONE (17:14)
[2020-05-31] MEDS ORDERED: Furosemide 40 MG/4 ML VIAL ONE (17:24)
[2020-05-31 17:26] LABS: Actual Bicarbonate (HCO3a) 14.3 mEq/L (22-28); Analyzer IN Cardio ER; Base Excess (BEa) -17.4 mEq/L (-2.0 to +3.0); Calcium, Ionized (arterial) 1.56 mmol/L (1.12-1.30); Carboxyhemoglobin (COHb) 0.2 gm% (0.0-3.0); Hemoglobin (Hb) 10.8 g/dL (14.0-18.0); O2 Tension (PaO2), arterial 111.5 mmHg (80.0-100.0); Potassium - ABG Lab 5.58 mmol/L (3.70-5.30)
[2020-05-31 17:31] LABS: CO2 Tension 63.1 mmHg (35.0-45.0); pH, Arterial 6.97 (7.35-7.45)
[2020-05-31 17:32] LABS: ALV-art Gradient 522.625 mmHg (0-20); Puncture Site RRA
[2020-05-31 17:36] LABS: Hemoglobin 9.8 g/dL (14.0-18.0); Mean Corpuscular HGB CONC 33.3 g/dL (32.0-36.0); Mean Corpuscular Hemoglobin 35.5 pg (27.0-31.0); Mean Platelet Volume 8.6 fL (7.4-10.4); Platelet Count 93 thou/uL (130-400); RBC Distribution Width 11.8 % (11.5-14.5); Red Blood Cell (RBC) Count 2.75 mill/uL (4.70-6.10); White Blood Cell (WBC) Count 6.9 thou/uL (4.8-10.8)
[2020-05-31 17:41] LABS: INR-International Normal Ratio 1.5; PTT 27.7 sec (22.9-36.1); Prothrombin Time 18.4 sec (12.0-14.7)
[2020-05-31 17:50] LABS: Band 1 % (5-11); Eosinophils 1 % (0-10); Lymphocytes 58 % (21-51); MDiff Complete? YES; Macrocytosis SLIGHT = 6-15 cells (100X) (0-5/hpf); Monocytes 2 % (0-10); Neutrophil 36 % (42-75); Platelet Morphology Comment Appears Decreased; Polychromasia SLIGHT = 2-3 cells (100X) (0-2/hpf); Reactive Lymphocytes 2 % (0-10)
[2020-05-31 17:56] LABS: ALT (SGPT) 337 U/L (8-55); AST (SGOT) 266 U/L (5-34); Albumin 2.9 g/dL (3.5-5.0); Alkaline Phosphatase 111 U/L (40-110); Anion Gap 29 mmol/L (10-20); BUN (Urea Nitrogen) 113 mg/dL (8.9-20.6); Bilirubin, Total 0.3 mg/dL (0.2-1.2); CK (CPK) 296 U/L (30-200); Calc. Creatinine Clearance 0 mL/min (70-130); Carbon Dioxide 13 mmol/L (22-29); Chloride 103 mmol/L (98-107); Estimated GFR-MDRD 3; Globulin 2.1 g/dL (2.4-3.5); Glucose 517 mg/dL (70-105); Magnesium 3.4 mg/dL (1.6-2.6); Sodium 138 mmol/L (136-145)
[2020-05-31 18:01] LABS: Calcium 12.8 mg/dL (7.8-10.44); Potassium 7.4 mmol/L (3.5-5.1)
[2020-05-31 18:09] LABS: CKMB 4.3 ng/mL (0-6.6)
[2020-05-31] MEDS ORDERED: Fentanyl 100 MCG/2 ML VIAL ONE ×2 (18:15→19:01)
--- NOTE | 2020-05-31 18:24 | RAD ---
Portable frontal chest radiograph: 05/31/2020 COMPARISON: 11/06/2019 HISTORY: Delayed return of spontaneous circulation FINDINGS: Lungs are clear. Heart and mediastinal contours appear within normal limits. IMPRESSION: No acute findings. There is an endotracheal tube in place. The distal tip of the endotrac heal tube is 1.6 cm proximal to the joselito, thus slightly low-lying. Recommend slight retraction of the endotracheal tube. Nasogastric tube extends into the left upper quadrant. Increased linear densities are noted in the perihilar regions which could represent volume loss or va scular prominence. No lobar consolidation or alveolar edema. IMPRESSION: Lines and tubes as detailed above. The endotracheal tube is slightly low lying.
--- NOTE | 2020-05-31 18:24 | PDOC.FPRHP ---
- History of Present Illness Chief Complaint: cardiac arrest History of Present Illness: 45 y/o M with PMHx ESRD, previous cardiac arrest brought in by EMS for ROSC following cardiac arrest. Per report from family, patient is not compliant with dialysis. Began to feel nauseated, vomited and then became unresponsive. Family started CPR and called EMS. EMS gave bicarb x 1, calcium chloride x 1, epi x 4, lidocaine x 1, rhythm vtach. Intubated and achieved ROSC in the field. Second code upon arrival to ED: bicarb x 3, dextrose, 2 g calcium chloride, 10 u insulin, albuterol, lasix, 2L NS, epi x 2, shock x 2, rhythm sine wave. Achieved ROSC for second time in ED. Per family, he has had cardiac arrest 2/2 hyperkalemia in the past and recovered well. ED Course: see HPI - Allergies/Adverse Reactions Allergies Allergy/AdvReac Type Severity Reaction Status Date / Time Penicillins Allergy Intermediate Hives Verified 05/19/20 04:38 - Home Medications Medication Instructions Recorded Confirmed Type Phenytoin Sodium Extended 50 mg PO TID 04/20/17 06/01/20 History Aspirin [Ecotrin Low Strength] 81 mg PO DAILY 11/03/19 06/01/20 History Atorvastatin Calcium 40 mg PO DAILY 11/03/19 06/01/20 History Carvedilol [Coreg] 3.125 mg PO BID 11/03/19 06/01/20 History Cholecalciferol (Vitamin D3) 2,000 unit PO DAILY 11/03/19 06/01/20 History [Vitamin D3] Sertraline HCl [Zoloft] 50 mg PO DAILY 11/03/19 06/01/20 History levETIRAcetam [Keppra] 500 mg PO BID 11/03/19 06/01/20 History Ferric Citrate [Auryxia] 2 tab PO TID 05/19/20 06/01/20 History Lisinopril 20 mg PO DAILY 05/19/20 06/01/20 History Loperamide HCl [Loperamide] 2 mg PO QID 05/19/20 06/01/20 History Melatonin 3 mg PO HS PRN tab 05/19/20 06/01/20 Rx NIFEdipine [Procardia XL] 30 mg PO DAILY 30 Days #30 tab 05/19/20 06/01/20 Rx Sevelamer Carbonate [Renvela] 2 tablet PO TID 05/19/20 06/01/20 History hydrALAZINE [Apresoline] 100 mg PO TID 30 Days #120 tab 05/19/20 06/01/20 Rx - History PMHx: ESRD on HD, DM, HTN, Seizure disorder, AVM rupture PSHx: crainiotomy, L arm fistula, R 5th toe amputation FHx: noncontributory Social: former smoker, smoked 1/2 ppd, quit 10 years ago, no alcohol or drug use - Review of Systems ROS unobtainable: due to endotracheal tube - Vital signs BP: 207/85, MAP: 125, Pulse: 88, Resp: 24, O2 sat: 100 on (Ventilator), End- Tidal CO2: 41, - Physical Exam Constitutional: other (intubated, withdraws from pain) HEENT: normocephalic and atraumatic, PERRLA Neck: no LAD Heart: RRR, pulses present, other (trace edema) Lungs: CTAB, other (intubated, ventilator sounds present) Abdomen: soft, bowel sounds present, no masses/distention Musculoskeletal: normal structure Neurological: other (GCS: E2/VNT/M4, does not follow commands) Skin: no rash/lesions Heme/Lymphatic: no unusual bruising or bleeding Psychiatric: other (unable to assess due to decreased level of consciousness) FMR H&P: Results - Labs Result Diagrams: 06/01/20 03:37 06/01/20 03:37 Lab results: WBC 6.9 thou/uL (4.8-10.8) 05/31/20 17:22 Hgb 9.8 g/dL (14.0-18.0) L 05/31/20 17:22 Hct 29.3 % (42.0-52.0) L 05/31/20 17:22 MCV 106.0 fL (78.0-98.0) H 05/31/20 17:22 Plt Count 93 thou/uL (130-400) L 05/31/20 17:22 Band Neuts % (Manual) 1 % (5-11) L 05/31/20 17:22 ABG pH 6.97 (7.35-7.45) L* 05/31/20 17:22 ABG pCO2 63.1 mmHg (35.0-45.0) H* 05/31/20 17:22 ABG pO2 111.5 mmHg (80.0-100.0) H 05/31/20 17:22 Sodium 138 mmol/L (136-145) 05/31/20 17:22 Potassium 7.4 mmol/L (3.5-5.1) H* 05/31/20 17:22 Chloride 103 mmol/L (98-107) 05/31/20 17:22 Carbon Dioxide 13 mmol/L (22-29) L 05/31/20 17:22 BUN 113 mg/dL (8.9-20.6) H 05/31/20 17:22 Creatinine 15.76 mg/dL (0.7-1.3) H 05/31/20 17:22 Glucose 517 mg/dL (70-105) H 05/31/20 17:22 Lactic Acid 12.5 mmol/L (0.5-2.2) H* 05/31/20 17:22 Calcium 12.8 mg/dL (7.8-10.44) H* 05/31/20 17:22 Total Bilirubin 0.3 mg/dL (0.2-1.2) 05/31/20 17:22 AST 266 U/L (5-34) H 05/31/20 17:22 ALT 337 U/L (8-55) H 05/31/20 17:22 Alkaline Phosphatase 111 U/L (40-110) H 05/31/20 17:22 Creatine Kinase 296 U/L (30-200) H 05/31/20 17:22 CK-MB (CK-2) 4.3 ng/mL (0-6.6) 05/31/20 17:22 Serum Total Protein 5.0 g/dL (6.0-8.3) L 05/31/20 17:22 Albumin 2.9 g/dL (3.5-5.0) L 05/31/20 17:22 FMR H&P: A/P - Plan ROSC s/p cardiac arrest Cardiac arrest and ROSC x2, see HPI for details. Intubated in field. Hypothermia on arrival to ED, some neurologic response on exam. Does not meet criteria for hypothermia protocol. Cardiac arrest most likely due to hyperkalemia 2/2 ESRD, non-compliant with dialysis. - intubated, admitted to CCU - sedation per protocol - emergent dialysis per nephro Respiratory Failure requiring intubation Likely 2/2 cardiac arrest. - remains intubated - consulted pulm, Dr. Wing Hyperkalemia Initial K 7.4, likely 2/2 non-compliance with hemodialysis in the setting of ESRD. s/p albuterol, insulin, lasix, 2L NS in ED. - nephrology Dr. Shin consulted, emergent dialysis tonight - continue to monitor K Respiratory acidosis with secondary metabolic acidosis Respiratory acidosis likely due to cardiac arrest, low suspicion for primary respiratory cause. Initial ABG ph 6.97, CO2 63.1, HCO3 14.1. Initial lactate 12, improved to 3.5 s/p fluid boluses. - Pulmonology Dr. Wing consulted, repeat ABG after dialysis - vent rate 24 to correct respiratory acidosis - continue to trend lactate Possible GI bleed Bloody output from OG, suspicious for GI bleed. - f/u FOBT - hold DVT ppx for now - continue to monitor H/H ESRD On hemodialysis with long history of non-compliance. Likely the cause of his cardiac arrest. - Nephrology consulted, Dr. Shin, as above Transaminitis Most likely ischemic injury 2/2 hypoperfusion during cardiac arrest. - continue to trend LFTs Elevated Troponin Most likely 2/2 cardiac arrest, CPR. Low suspicion for NSTEMI. No ST changes on EKG. - cardiac monitoring in ICU - trend troponins - repeat EKG for rising troponins T2DM Initially hyperglycemic, likely 2/2 cardiac arrest and medications given during resuscitation. Labs do not support a diagnosis of DKA. Hga1c wnl although this may be inaccurate due to hemodialysis. - mild SSI - monitor glucose closely Anemia Likely a chronic anemia given kidney disease, hemodialysis. - continue to monitor H/H closely given possible GI bleed - holding ferric citrate due to NPO status HTN Labile blood pressures s/p cardiac arrest. - holding home anti-hypertensives Disposition/LOS: Dispo: admit to CCU, dispo pending clinical condition DVT ppx: held for possible GI bleed GI ppx: protonix Diet: NPO FMR H&P: Upper Level - Plan Date/Time: 05/31/201823 I, [Jacqueline Shin], have evaluated this patient and agree with findings/plan as outlined by international relations teacher resident. Pertinent changes/additions are listed here. 45 yo M on HD with ESRD here for cardiac arrest with ROSC x2. Has longstanding history of noncompliance with HD, has missed the past two sessions. Per family, pt started vomiting, collapsed and turned blue. Family started compressions and called EMS. He was intubated and achieved ROSC en route. In the ER he went into cardiac arrest again, debrillated twice with ROSC again. He was found to be acidotic with pH 6.9 and hyperkalemic at 7.4. Was given 80mg lasix, albuterol, 10 units insulin. Nephro consulted and HD is planned. Patient has been hospitalized multiple times for cardiac arrest due to hyperkalemic emergency from his noncompliance with HD. They states he usually makes a full neurologic recovery. Most recently was in Oct 2019 where he went into cardiopulmonary arrest due to hyperkalemia from ESRD. ER: 2g CaCl, 80mg lasix, 2L NS, 25g D50@, 3 amp bicarb, albuterol, fentanyl, 10 units insulin #Cardiac arrest s/p ROSC -Likely in VT on the field then sine wave in ER. ROSC x2. -Likely 2/2 hyperkalemia and acidosis from missed HD in ESRD -Didn't meet inclusion criteria for cooling protcol -Admit to CCU, pulm consulted, recs appreciated #Respiratory failure requiring mechanical ventilation -s/p fentanyl and rocuronium on the field -Currently sedated & intubated, continue sedation protocol -Mild hypercapnea but acidosis likely metabolic -Rpt VBG, adjust vent setting accordingly -Pulm consulted, recs appreciated #Hyperkalemia in ESRD on HD -7.4, s/p albuterol, insulin, 80mg lasix - EKG: RBBB, No peaked T waves, QTc 428ms, rate 55 -1g CaCl x2 -Nepro consulted, plan for emergent dialysis #Possible GIB -Darren blood in OGT -Start IV Protonix BID -FOBT -Hb stable, repeat in AM -No anticoagulation #ESRD on HD, noncompliance -See above, nephro on board #Metabolic acidosis likely 2/2 lactic acidosis -pH 6.97, pCO2 63.1, pO2 111.5, HCO3 14.3 -s/p 2L, recheck -cannot r/o DKA, will check BHB, repeat BMP for glucose -Lactic acid 12.5 -Repeat ABG after HD #Indeterminate troponin -0.062, likely from compression -Trend #Hyperglycemia in DM2, r/o DKA -Received 10 units insulin in ER -s/p 2L NS -Check BhB to r/o DKA with Agap. 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 I agree with the History, Examination, Assessment and Plan documented above with any addition or exceptions noted below. Neuro: propofol gtt, awake tomorrow AM Resp: VBG during dialysis, ABG post, adjust vent settings as I anticipate he will have a low CO2 CV: no pressors currently, monitor FEN/GI: OGT with black appearing liquid, send guaic, PPI BID Renal/: dialysis, monitor K, repeat BMP as I believe the abnormalities were likely immediately following Ca and D50 administration Heme/ID: afebrile, monitor, repeat cbc in AM Endo: insulin pending results of repeat BMP Lines: ETT/OGT/Right fem CVC As he has apparently had recurrent episodes of arrest due to lack of HD follow up, I anticipate that even if he survives this hospitalization his prognosis is guarded.
[2020-05-31 19:13] LABS: Bacteria/HPF 1+ HPF (None Seen); Bilirubin Negative (Negative); Blood, Urine 1+ (Negative); Clarity Turbid (Clear); Glucose, Urine (Dipstick) 70 mg/dL (Negative); Ketone, Urine Negative (Negative); Leukocyte 250 Leu/uL (Negative); Nitrite Negative (Negative); Protein, Urine (Dipstick) 200 mg/dL (Neg-Trace); Specific Gravity, Urine 1.011 (1.002-1.036); Sperm/HPF 1+ HPF (None Seen); Squamous Epithelial 0-3 HPF (0-3); Urobilinogen Normal mg/dL (Less than 2); WBC/HPF Greater than 50 HPF (0-3)
[2020-05-31 19:15] LABS: HBSAg Index 0.17 S/CO (0-0.99); Hep B Surf Ag Non-Reactive S/CO (NonReactive)
--- NOTE | 2020-05-31 19:29 | PRG ---
DATE OF SERVICE: 05/31/2020 SUBJECTIVE: Mr. Ayala is a 45-year-old male with known history of ESRD-on maintenance hemodialysis and came to the ER in cardiorespiratory distress. He was subsequently intubated and placed on ventilator support. He also was found to have significant hyperkalemia and this was addressed emergently by the ER physicians. We are now being consulted to further manage his ESRD as well as hyperkalemia. I have made arrangements for an emergency hemodialysis with this patient. Please note, he missed his dialysis session today. The patient has missed several dialysis sessions secondary to noncompliance. He has been counseled several times in the past. OBJECTIVE: VITAL SIGNS: Blood pressure 130/70 and heart rate 70. GENERAL: The patient is arousable, intubated on ventilator support. SKIN: Adequate turgor. HEENT: He has a pinkish conjunctivae. Anicteric sclerae. No neck mass. No carotid bruits. No JVD. CHEST: No deformities. LUNGS: Clear breath sounds. No wheezing. No crackles. HEART: Normal sinus rhythm. No murmur. No gallops. No rubs. ABDOMEN: Globular, soft, and nontender. No masses. EXTREMITIES: No edema. No deformities. HOME MEDICATIONS: 1. Keppra 500 mg p.o. b.i.d. 2. Hydralazine 100 mg p.o. t.i.d. 3. Renvela 800 mg 2 tablets p.o. t.i.d. with meals. 4. Sertraline 100 mg once a day. 5. Phenytoin sodium 400 mg p.o. at bedtime. 6. Nifedipine 30 mg XL tablet once a day. 7. Lisinopril 20 mg once a day. 8. Auryxia 2 tablets p.o. t.i.d. 9. Coreg 3.125 mg p.o. b.i.d. 10. Atorvastatin 40 mg daily. 11. Aspirin 81 mg daily. LABORATORY DATA: May 31, 2020; white count 6.9 and hemoglobin 9.8. Sodium 138, potassium 7.4, chloride 103, carbon dioxide 13, BUN 113, creatinine 15.7, calcium 12.8, magnesium 3.4, and albumin 2.9. Lactic acid 12.5. Troponin I 0.062. Chest x-ray, no CHF. ASSESSMENT AND PLAN: 1. Hyperkalemia-we will schedule for an emergent hemodialysis. The patient has received medications to address the hyperkalemia, which includes calcium gluconate. He is currently in sinus rhythm. 2. End-stage renal disease. Continue 3 times a week hemodialysis. Fluid removal as tolerated. The patient has history of noncompliance with this regular dialysis sessions. 3. We will rediscuss it with the family as well with the patient again when the patient is more coherent and is extubated. 4. Case discussed with the dialysis nurses. They will be anticipating. He is transferred to ICU, so we can initiate dialysis. Job ID: [id number]
[2020-05-31] MEDS ORDERED: Propofol BOLUS 1,000 MG/100 ML VIAL IV PRN (19:30)
[2020-05-31] MEDS ORDERED: Fentanyl BOLUS 250 ML IVPB PRN (19:30)
[2020-05-31] MEDS ORDERED: Morphine 2 MG/ML VIAL SLOW IVP PRN (19:30)
[2020-05-31] MEDS ORDERED: fentaNYL Citrate/PF 2,000 MCG in Sodium Chloride 0.9% 60 ML IV SCH (19:30)
[2020-05-31] MEDS ORDERED: DISCONTINUE PREVIOUS NARCOTIC PAIN MEDICATIONS AND BENZODIAZEPINES FS SCH (19:30)
[2020-05-31] MEDS ORDERED: Lorazepam 2 MG/ML VIAL SLOW IVP PRN (19:30)
[2020-05-31] MEDS ORDERED: Ventilator Sedation Protocol 1 EACH FS SCH (19:45)
[2020-05-31] MEDS ORDERED: Dextrose 5% in Water 1,000 ML IV PRN (19:47)
[2020-05-31] MEDS ORDERED: HumaLOG 300 UNITS/3 ML VIAL SC PRN (19:47)
[2020-05-31] MEDS ORDERED: Dextrose 50% Abboject 50 ML SYRINGE SLOW IVP PRN (19:47)
[2020-05-31] MEDS: Propofol 1,000 MG/100 ML VIAL IV PRN (19:47)
--- NOTE | 2020-05-31 19:59 | CT ---
CT BRAIN WITHOUT CONTRAST: 05/31/20 HISTORY: Unresponsive, CPR was performed. The patient was shocked twice. COMPARISON: 05/18/19. Right sided craniectomy defect is again seen. There is encephalomalacia in the right temporal lobe. T he ventricular size is stable and the basilar cisterns patent. No acute hemorrhage, acute infarct or midline shift is seen. There is mucosal disease in the paranasal sinuses. IMPRESSION: Stable postoperative changes. No evidence of acute intracranial process. POS: COMFORT
[2020-05-31 20:02] LABS: Hemoglobin A1c 5.2 % (4.0-6.0)
[2020-05-31 20:17] LABS: Actual Bicarbonate (HCO3v) 20 mEq/L (22-28); Base Excess -7.6 mEq/L (-2.0 to +3.0); Calcium, Ionized (venous) 1.27 mmol/L (1.16-1.32); Chloride (ABG LAB) 104 mmol/L (98-106); Hemoglobin (Hb) 9.6 g/dL (13.2-17.3); Potassium - ABG Lab 5.17 mmol/L (3.70-5.30); Sodium 139.7 mmol/L (133-146)
[2020-05-31 20:33] LABS: Anion Gap 24 mmol/L (10-20); BUN (Urea Nitrogen) 110 mg/dL (8.9-20.6); Calc. Creatinine Clearance 7 mL/min (70-130); Calcium 9.2 mg/dL (7.8-10.44); Carbon Dioxide 17 mmol/L (22-29); Chloride 106 mmol/L (98-107); Estimated GFR-MDRD 3; Glucose 179 mg/dL (70-105); Potassium 5.3 mmol/L (3.5-5.1); Sodium 142 mmol/L (136-145)
[2020-05-31 20:37] LABS: Lactic Acid 3.5 mmol/L (0.5-2.2)
[2020-05-31] MEDS ORDERED: Famotidine/PF 20 mg/2ml Vial SLOW IVP SCH (21:00)
[2020-05-31] MEDS ORDERED: Heparin 5,000 UNITS/ML VIAL SC SCH (21:00)
[2020-05-31 21:55] LABS: Troponin I 0.648 ng/mL (< 0.028)
[2020-05-31 22:14] LABS: pH (venous) 7.23 (7.32-7.43)
[2020-05-31] MEDS ORDERED: Sodium Chloride 0.9% (PF) 10 ML VIAL FS PRN (22:15)
[2020-05-31] MEDS ORDERED: Pantoprazole 40 MG VIAL IVP SCH (22:15)
[2020-06-01] MEDS: Propofol 1,000 MG/100 ML VIAL IV PRN (01:28)
[2020-06-01 02:18] LABS: Lactic Acid 7.6 mmol/L (0.5-2.2)
[2020-06-01 02:29] LABS: Troponin I 1.575 ng/mL (< 0.028)
[2020-06-01 02:45] LABS: Actual Bicarbonate (HCO3a) 19.5 mEq/L (22-28); Base Excess (BEa) -3.8 mEq/L (-2.0 to +3.0); CO2 Tension 29.3 mmHg (35.0-45.0); Calcium, Ionized (arterial) 1.11 mmol/L (1.12-1.30); Carboxyhemoglobin (COHb) 0.3 gm% (0.0-3.0); Hemoglobin (Hb) 9.1 g/dL (14.0-18.0); O2 Tension (PaO2), arterial 229.3 mmHg (80.0-100.0); Potassium - ABG Lab 4.13 mmol/L (3.70-5.30); pH, Arterial 7.44 (7.35-7.45)
[2020-06-01 02:46] LABS: ALV-art Gradient 161.875 mmHg (0-20); Puncture Site RBA
[2020-06-01] MEDS ORDERED: Sodium Chloride 0.9% 1,000 ML IV SCH (04:00)
[2020-06-01] MEDS ORDERED: Fosphenytoin Sodium 200 MG in Sodium Chloride 0.9% 50 ML IVPB SCH ×2 (04:00→09:00)
[2020-06-01 04:08] LABS: #Lymphocytes 0.7 thou/uL (1.20-3.40); #Monocytes 0.8 thou/uL (0.11-0.59); %Basophils 0.1 % (0.0-1.0); %Eosinophils 0.2 % (0.0-10.0); %Lymphocytes 8.5 % (21.0-51.0); %Monocytes 8.8 % (0.0-10.0); %Neutrophils 82.4 % (42.0-75.0); Hemoglobin 8.8 g/dL (14.0-18.0); Mean Corpuscular HGB CONC 34.3 g/dL (32.0-36.0); Mean Corpuscular Hemoglobin 34.8 pg (27.0-31.0); Mean Platelet Volume 7.8 fL (7.4-10.4); Platelet Count 108 thou/uL (130-400); RBC Distribution Width 11.8 % (11.5-14.5); Red Blood Cell (RBC) Count 2.51 mill/uL (4.70-6.10); White Blood Cell (WBC) Count 8.5 thou/uL (4.8-10.8)
[2020-06-01 04:22] LABS: ALT (SGPT) 342 U/L (8-55); AST (SGOT) 316 U/L (5-34); Albumin 3.1 g/dL (3.5-5.0); Alkaline Phosphatase 76 U/L (40-110); Anion Gap 25 mmol/L (10-20); BUN (Urea Nitrogen) 52 mg/dL (8.9-20.6); Bilirubin, Total 0.2 mg/dL (0.2-1.2); Calc. Creatinine Clearance 12 mL/min (70-130); Calcium 8.5 mg/dL (7.8-10.44); Carbon Dioxide 20 mmol/L (22-29); Chloride 99 mmol/L (98-107); Estimated GFR-MDRD 6; Globulin 2.2 g/dL (2.4-3.5); Glucose 172 mg/dL (70-105); Potassium 4.5 mmol/L (3.5-5.1); Protein, Total 5.3 g/dL (6.0-8.3); Sodium 139 mmol/L (136-145)
[2020-06-01 06:37] LABS: Troponin I 2.192 ng/mL (< 0.028)
--- NOTE | 2020-06-01 07:05 | PDOC.FM ---
- Subjective Subjective: Patient did well overnight. Was extubated this morning and is awake, alert, able to follow commands and speak. No blood out the ogt overnight. - Objective Vital Signs & Weight: Vital Signs (12 hours) Resp Pulse Ox 06/01/20 06:00 18 06/01/20 04:00 18 06/01/20 02:00 24 H 06/01/20 00:00 24 H 05/31/20 22:00 24 H 05/31/20 19:54 100 05/31/20 19:47 24 H Weight Weight 82 kg Most Recent Monitor Data Heart Rate from ECG 93 NIBP 106/58 NIBP BP-Mean 74 Respiration from ECG 18 SpO2 100 I&O: 05/31/20 06/01/20 06/02/20 06:59 06:59 06:59 Intake Total 256.4 Output Total 541 Balance -284.6 Result Diagrams: 06/01/20 03:37 06/01/20 03:37 Phys Exam - Physical Examination awake, alert, communicative HEENT: moist MMs, sclera anicteric Neck: supple, full ROM Respiratory: no wheezing, clear to auscultation bilateral Cardiovascular: RRR, no significant murmur Gastrointestinal: soft, no distention Musculoskeletal: no edema, pulses present Neurological: moves all 4 limbs Weakness on R, chronic due to prior seizure Psychiatric: normal affect Skin: no rash, normal turgor Dx/Plan (1) Cardiac arrest Code(s): I46.9 - CARDIAC ARREST, CAUSE UNSPECIFIED Status: Acute (2) DMII (diabetes mellitus, type 2) Status: Acute (3) Demand ischemia of myocardium Code(s): I24.8 - OTHER FORMS OF ACUTE ISCHEMIC HEART DISEASE Status: Acute (4) HTN (hypertension) Code(s): I10 - ESSENTIAL (PRIMARY) HYPERTENSION Status: Acute (5) Hyperkalemia Code(s): E87.5 - HYPERKALEMIA Status: Acute (6) ESRD (end stage renal disease) Code(s): N18.6 - END STAGE RENAL DISEASE Status: Chronic (7) Seizure disorder Code(s): G40.909 - EPILEPSY, UNSP, NOT INTRACTABLE, WITHOUT STATUS EPILEPTICUS Status: Chronic - Plan Plan: Patient is a 45M with PMHx of ESRD on HD, seizure disorder, HTN, HLD, hx of craniotomy admitted for: #Cardiac arrest s/p ROSC -Likely in VT on the field > sine wave in ER. ROSC x2. -Likely 2/2 hyperkalemia and acidosis from missed HD in ESRD -Didn't meet inclusion criteria for cooling protcol -Has had nsr overnight, occasional PVCs -Admitted to CCU, pulm consulted, recs appreciated #Respiratory failure requiring mechanical ventilation, resolved -s/p extubation this morning, patient tolerated this well -Pulm consulted, recs appreciated #Hyperkalemia in ESRD on HD, resolved #ESRD on HD, noncompliance -7.4 > 4.5 s/p emergent HD -Nephro consulted, plan for continued dialysis #Possible upper GI bleed -Darren blood in OGT on admission, no bloody drainage overnight -Started on IV Protonix BID -FOBT pending -H/H 9.8/29.3>8.8/25.5, will continue to monitor -No anticoagulation, SCDs for ppx #Metabolic acidosis likely 2/2 lactic acidosis and uremia -pH 6.97, pCO2 63.1, pO2 111.5, HCO3 14.3 on admission -pH 7.44, pCO2 29.3, pO2 229.3, HCO3 19.5 on blood gas s/p HD -Lactic acid 12.5 > 3.5 > 7.6> 7.2 -will continue to monitor #NSTEMI, likely due to demand from hypotension and due to shock/CPR -0.062 >0.648>1.575>2.192>2.187 -EKGs have not shown any ST changes -patient had elevated trops October 2019 when he had a previous admission requiring CPR and defibrillation #Hyperglycemia in DM2, resolved #DM2 -Received 10 units insulin in ER -s/p 2L NS -A1C: 5.5, though uncertain reliability as patient is on HD -ISS #Anemia, likely of ESRD -No clinical sign of bleeding -Stable -Monitor #Seizure disorder -Continue home seizure meds -Hx of craniotomy for AVM in 2015 with subsequent osteomyelitis -Dilantin level: 5.1, low -Keppra level 16, wnl -Continue seizure meds IV Vent settings: Extubated Admit: CCU/ Inpatient Consultants: Pulm, Nephro Abx: None at this time Code: Full Lines: R IO, Right femoral venous line Diet: NPO GI PPx: protonix Dvt ppx: SCDs Addendum - Attending - Attending Attestation Date/Time: 06/01/20 0862 I personally evaluated the patient and discussed the management with Dr. Gonzalez. I agree with the History, Examination, Assessment and Plan documented above with any addition or exceptions noted below. The patient was extubated during our visit this morning. He was talking with us afterward. Will monitor. He had dialysis overnight and will likely get dialysis tomorrow. Will stop iv fluids. Enzymes likely elevated 2/2 cpr. Nursing reports no more bleeding from OG tube. This was likely 2/2 trauma when placing the tube.
[2020-06-01] MEDS: Pantoprazole 40 MG VIAL IVP SCH ×2 (08:48→20:37)
[2020-06-01 09:10] LABS: Critical Call Chem Troponin I RESULT DECREASING; Troponin I 2.187 ng/mL (< 0.028)
--- NOTE | 2020-06-01 09:16 | CON ---
DATE OF CONSULTATION: HISTORY OF PRESENT ILLNESS: Wilbert Ayala is a 45-year-old [place] gentleman, recurrent admission to the hospital because of failed dialysis. He presented last night at 1935 hours in cardiac arrest. He missed his dialysis. He is markedly hyperkalemic. He is intubated, ventricular tachycardia , transferred to the ICU on the vent, intubated, sedated, emergency dialysis performed. PAST MEDICAL HISTORY: Diabetes, chronic renal failure, and seizure disorders. PAST SURGICAL HISTORY: Previous surgeries; multiple access, amputation of toes, and craniotomy. SOCIAL HISTORY: Apparently, no history of alcohol or tobacco abuse. MEDICATIONS: His recent home discharge medications; 1. Atorvastatin 40. 2. Aspirin. 3. Lisinopril 20. 4. Coreg 3.125. 5. Keppra 500 twice a day. 6. Procardia 30. 7. Phenytoin 50 mg t.i.d. 8. Zoloft 50. 9. Hydralazine 100 three times a day. ALLERGIES: PENICILLIN. PHYSICAL EXAMINATION: GENERAL: He is sedated and unresponsive. VITAL SIGNS: His vital signs are stable with saturations 100% on the vent settings, pulse 80, and respirations 16. Blood pressure 130/80. HEENT: Pupils are equal. CHEST: Decreased breath sounds. No wheezing. CARDIAC: Normal S1 and S2. ABDOMEN: Soft. LABORATORY DATA: Chest x-ray was clear. His white count was 3000 and H and H were stable. His chemistry, BUN 52 and creatinine 9.6. Blood gas; pO2 was 229, pCO2 of 29, pH of 7.44 post dialysis. IMPRESSION: 1. Acute on chronic respiratory failure. 2. Status post cardiac arrest secondary to markedly elevated potassium, seizure disorders, previous craniotomy, diabetes, renal failure, and very poor compliance. PLAN: I am going to hold sedation. If he is appropriate and in no distress, consider weaning and extubation. Otherwise, we will continue his present home medication, supportive care, and dialysis as per Nephrology. This is a 45-minute critical care time. Job ID: [id number]
[2020-06-01] MEDS ORDERED: Epoetin (ESRD) 20,000 UNITS/ML SC SCH (09:30)
--- NOTE | 2020-06-01 09:33 | PRG ---
DATE OF SERVICE: 06/01/2020 SUBJECTIVE: Mr. yAala is a 45-year-old male with ESRD and currently on maintenance hemodialysis. He was initially admitted for severe hyperkalemia. He was noted to be in acute respiratory distress and was subsequently intubated. He underwent emergent hemodialysis for an elevated potassium of 7.2. Repeat potassium is now within normal. We are following up this patient for management of his ESRD as well as for his maintenance hemodialysis and other electrolyte abnormalities. This morning, he is noted to be awake, can follow commands, and not in distress. No acute events noted last night. OBJECTIVE: VITAL SIGNS: Blood pressure is 109/71 with a heart rate of 83, respiratory rate 18, O2 saturations 100%, and temperature 98.4. GENERAL: The patient is awake, intubated, on ventilator support. SKIN: Adequate turgor. HEENT: He has slightly pale conjunctivae. Anicteric sclerae. No neck mass. No carotid bruits. No JVD. CHEST: No deformities. LUNGS: Clear breath sounds. No wheezing. No crackles. HEART: Normal sinus rhythm. No murmur. No gallops. No rubs. ABDOMEN: Globular, soft, and nontender. No masses. EXTREMITIES: No edema. No deformities. MEDICATIONS: June 01, 2020, reviewed. LABORATORY DATA: On June 01, 2020, white count 8.5 and hemoglobin 8.8. Sodium 139, potassium 4.5, chloride 99, carbon dioxide 20, BUN 52, creatinine 9.16, glucose 172, calcium 8.5, AST 316, and ALT 342. Troponin I is 2.187. ASSESSMENT AND PLAN: 1. Hyperkalemia - much improved with hemodialysis. Repeat potassium is 4.5 from a previous reading of 7.4. No indication for any repeat dialysis. 2. End-stage renal disease, stable. Tolerated hemodialysis last night. Fluid removal of about 2 L was done. No indication for any emergent hemodialysis. 3. Elevated troponin I - consider possible stress ischemia. Consider Cardiology consult. 4. Anemia. We will resume back the patient's weekly Epogen of 7500 units subcu every week. Job ID: [id number]
[2020-06-01 09:34] LABS: Lactic Acid 7.2 mmol/L (0.5-2.2)
[2020-06-01] MEDS ORDERED: EPOETIN ALFA-EPBX (ESRD) 4,000 UNIT/ML VIAL SC SCH (12:00)
[2020-06-01 12:17] LABS: SARS-CoV-2 MS2 Positive; SARS-CoV-2 N Gene Negative; SARS-CoV-2 S Gene Negative; SARS-CoV-2 by NAA Not Detected (NotDetected); SARS-CoV-2 orf1ab Negative
[2020-06-01] MEDS: Sevelamer Carbonate 800 MG TAB PO SCH ×2 (19:35→20:37)
[2020-06-01] MEDS: Acetaminophen 325 MG TAB PO PRN (20:36)
[2020-06-01] MEDS: Carvedilol 3.125 MG TAB PO SCH (20:36)
[2020-06-01] MEDS: levETIRAcetam 500 MG TAB PO SCH (20:37)
[2020-06-01] MEDS ORDERED: FERRIC CITRATE 210 MG PO SCH (21:00)
[2020-06-02 04:57] LABS: #Lymphocytes 1.3 thou/uL (1.20-3.40); #Monocytes 0.5 thou/uL (0.11-0.59); #Neutrophils 3.9 thou/uL (1.40-6.50); %Basophils 0.2 % (0.0-1.0); %Eosinophils 0.3 % (0.0-10.0); %Lymphocytes 22.5 % (21.0-51.0); %Monocytes 8.1 % (0.0-10.0); %Neutrophils 68.8 % (42.0-75.0); Mean Corpuscular HGB CONC 32.4 g/dL (32.0-36.0); Mean Corpuscular Hemoglobin 33.9 pg (27.0-31.0); Mean Platelet Volume 8.2 fL (7.4-10.4); Platelet Count 85 thou/uL (130-400); RBC Distribution Width 11.8 % (11.5-14.5); Red Blood Cell (RBC) Count 2.37 mill/uL (4.70-6.10); White Blood Cell (WBC) Count 5.7 thou/uL (4.8-10.8)
[2020-06-02 05:29] LABS: Anion Gap 20 mmol/L (10-20); BUN (Urea Nitrogen) 64 mg/dL (8.9-20.6); Calc. Creatinine Clearance 10 mL/min (70-130); Calcium 7.8 mg/dL (7.8-10.44); Carbon Dioxide 23 mmol/L (22-29); Chloride 100 mmol/L (98-107); Estimated GFR-MDRD 5; Glucose 62 mg/dL (70-105); Potassium 6.4 mmol/L (3.5-5.1); Sodium 137 mmol/L (136-145)
--- NOTE | 2020-06-02 05:55 | PDOC.FM ---
- Subjective Subjective: Mr. Ayala is feeling better today but endorses R shoulder pain. His manrique was removed because he was threatening to rip it out, but he has not yet urinated. I told him he will have to urinate by 9am or the manrique will have to be replaced. He has chronic diarrhea which he has had for years but has been resisting having a BM. I explained we are trying to get stool studies and want to figure out why he has been having diarrhea for years, which is something I have been trying to work up for him in clinic. He denies dyspnea/SOB/CP/edema/V. - Objective Vital Signs & Weight: Vital Signs (12 hours) Temp Pulse Resp BP Pulse Ox 06/02/20 03:34 98.4 F 86 20 138/68 96 06/02/20 03:18 93 L 06/02/20 00:00 98.4 F 89 18 128/61 93 L 06/01/20 20:35 100 06/01/20 20:33 99.5 F 94 18 124/63 100 06/01/20 19:42 100 Weight Admit Weight 82 kg Weight 82 kg Most Recent Monitor Data Heart Rate from ECG 95 NIBP 131/68 NIBP BP-Mean 89 Respiration from ECG 14 SpO2 100 I&O: 05/31/20 06/01/20 06/02/20 06:59 06:59 06:59 Intake Total 256.4 305.4 Output Total 541 302 Balance -284.6 3.4 Result Diagrams: 06/02/20 03:41 06/02/20 03:41 Dx/Plan - Plan Plan: Patient is a 45M with PMHx of ESRD on HD, seizure disorder, HTN, HLD, hx of craniotomy admitted for: Cardiac arrest s/p ROSC - Likely in VT on the field > since wave in ER. ROSC x2. Hypothermia on arrival to ED, did not meet criteria for hypothermia protocol - Likely 2/2 hyperkalemia and acidosis from missed HD in ESRD - Nephro consulted, appreciate recs Emergent dialysis on 05/31 - Has had nsr overnight, occasional PVCs - Admitted to CCU, pulm consulted. Moved to floor on 06/01 Respiratory failure requiring mechanical ventilation, resolved - Intubated 05/31. Extubated 06/01. - Moved from CCU to floor on 06/01 - Pulm consulted, recs appreciated Hyperkalemia in ESRD on HD, resolved ESRD on HD, noncompliance - 7.4 > 4.5 s/p emergent HD > 6.4 - Nephro consulted Repeat dialysis today - Daily CMPs Possible upper GI bleed - Darren blood in OGT on admission, no bloody drainage overnight - Started on IV Protonix BID - FOBT positive but nurse unsure if it was old blood - H/H 9.8/29.3 > 8.8/25.5 > 8/24.8, will continue to monitor - No anticoagulation, SCDs for ppx - CDiff, Stool cx, fecal lactoferrin, H. pylori, O&P ordered and pending Anemia - Possibly d/t ESRD or GI bleed - Monitoring Hb, as stated above - Consider transfusion if Hb <7 - MCV 105 Metabolic acidosis likely 2/2 lactic acidosis and uremia - Respiratory acidosis likely due to cardiac arrest, low suspicion for primary respiratory cause. - pH 6.97, pCO2 63.1, pO2 111.5, HCO3 14.3 on admission - pH 7.44, pCO2 29.3, pO2 229.3, HCO3 19.5 on blood gas s/p HD - Lactic acid 12.5 > 3.5 > 7.6> 7.2 - Pulmonology consulted, appreciate recs NSTEMI, likely due to demand from hypotension and due to shock/CPR - 0.062 > 0.648 > 1.575 > 2.192 > 2.187 - EKGs have not shown any ST changes - Patient had elevated trops October 2019 when he had a previous admission requiring CPR and defibrillation Hyperglycemia in DM2, resolved DM2 - Initially hyperglycemic, likely 2/2 cardiac arrest and medications given during resuscitation - Received 10 units insulin in ER - A1C: 5.5, though uncertain reliability as patient is on HD - SSI. 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 - Holding home anti-hypertensives Dispo: Medical floor, LOS >48h Consultants: Pulm, Nephro Abx: None at this time Code: Full Lines: R IO, Right femoral venous line Diet: CC GI PPx: protonix Dvt ppx: SCDs
--- NOTE | 2020-06-02 08:47 | PRG ---
DATE OF SERVICE: 06/02/2020 SUBJECTIVE: Mr. Ayala is a 45-year-old male with ESRD, on maintenance hemodialysis, and admitted initially for severe hyperkalemia. He was also intubated for respiratory distress. He is now extubated and doing well. No new complaints today. Potassium is much improved with dialysis. He is currently undergoing dialysis this a.m. OBJECTIVE: VITAL SIGNS: Blood pressure is 138/68, heart rate 86, respiratory rate 20, temperature 98.4, and O2 saturation 96%. GENERAL: Awake, alert, comfortable, not in distress. SKIN: Adequate turgor. HEENT: Pinkish conjunctivae. Anicteric sclerae. NECK: No neck mass. No carotid bruits. No JVD. CHEST: No deformities. LUNGS: Clear breath sounds. No wheezing. No crackles. HEART: Normal sinus rhythm. No murmur. No gallops. No rubs. ABDOMEN: Globular, soft, and nontender. No masses. EXTREMITIES: No edema. No deformities. MEDICATIONS: Medications of 06/02/2020 were reviewed. LABORATORY DATA: On 06/02/2020: White count 5.7 and hemoglobin 8. Sodium 137, potassium 6.4, chloride 100, carbon dioxide 23, BUN 64, creatinine 11.16, calcium 7.8, and glucose 62. ASSESSMENT AND PLAN: 1. Hyperkalemia, fluctuating potassium. Today's potassium is 6.4. He is currently undergoing hemodialysis and we will adjust potassium bath. 2. End-stage renal disease, stable. Continue Friday, Friday, and Friday hemodialysis regimen. Fluid removal as tolerated by the patient. 3. Anemia. The patient is currently on his regular Epogen regimen of 7500 units subcutaneous every week. 4. Status post acute respiratory failure, resolved. In view of the fluctuating potassium, would suggest we start him Veltassa 8.4 g daily. Recheck basic metabolic and CBC in a.m. Job ID: [id number]
[2020-06-02] MEDS ORDERED: Non-Formulary Item 1 EACH (Cholecalciferol (Vitamin D3) [Vitamin D3] 1,000 UNIT Capsule) PO SCH (09:00)
[2020-06-02 09:39] LABS: ALT (SGPT) 201 U/L (8-55); AST (SGOT) 115 U/L (5-34); Albumin 2.9 g/dL (3.5-5.0); Alkaline Phosphatase 58 U/L (40-110); Bilirubin, Direct 0.2 mg/dL (0.1-0.3); Bilirubin, Total 0.3 mg/dL (0.2-1.2); Protein, Total 5.2 g/dL (6.0-8.3)
--- NOTE | 2020-06-02 09:45 | PRG ---
DATE OF SERVICE: 06/02/2020 SUBJECTIVE: Wilbert Ayala is a 45-year-old gentleman with poor compliance with dialysis, presented with cardiopulmonary arrest with CPR progress, intubated, emergent dialysis. He is extubated yesterday, surprisingly doing well. Neurologically, he is intact. OBJECTIVE: VITAL SIGNS: Temperature 98, pulse 76, sats is 96% on room air, blood pressure 138/68. CHEST: No wheezing, no crackles. CARDIAC: Normal S1 and S2. No gallops. ABDOMEN: No masses. LABORATORY DATA: Potassium 6.4, creatinine is 11, BUN 64. ASSESSMENT: End-stage renal disease, respiratory failure, status post cardiac arrest. PLAN: Continue present aggressive dialysis. He needs counseling. Pulmonary is going to follow at a distance. Please call if he has pulmonary issues. Job ID: [id number] MTDD
--- NOTE | 2020-06-02 11:29 | PRG ---
DATE OF SERVICE: 06/02/2020 Mr. Ayala is currently at dialysis in no distress. Given Mr. Ayala's previous history of craniotomy and possible depression I am not sure he understands the seriousness of missing dialysis. I think it would be a good idea to get a responsible adult to look after him to ensure that he keeps his dialysis appointments. Job ID: [id number]
[2020-06-02] MEDS: levETIRAcetam 500 MG TAB PO SCH ×2 (14:00→21:37)
[2020-06-02] MEDS: Pantoprazole 40 MG VIAL IVP SCH ×2 (14:00→21:37)
[2020-06-02] MEDS: Carvedilol 3.125 MG TAB PO SCH ×2 (14:00→21:37)
[2020-06-02] MEDS: Cholecalciferol 1,000 UNITS (25 MCG) TAB PO SCH (14:04)
[2020-06-02] MEDS: Sevelamer Carbonate 800 MG TAB PO SCH ×3 (14:05→21:36)
[2020-06-02] MEDS: Atorvastatin Calcium 40 MG TAB PO SCH (14:05)
[2020-06-02] MEDS ORDERED: hydrALAZINE 25 MG TAB PO SCH (22:15)
[2020-06-02] MEDS: Lidocaine 5% Patch TD PRN (22:34)
[2020-06-03 01:54] LABS: #Lymphocytes 0.9 thou/uL (1.20-3.40); #Monocytes 0.5 thou/uL (0.11-0.59); #Neutrophils 3.7 thou/uL (1.40-6.50); %Basophils 0.4 % (0.0-1.0); %Eosinophils 0.9 % (0.0-10.0); %Lymphocytes 17.5 % (21.0-51.0); %Monocytes 10.3 % (0.0-10.0); %Neutrophils 70.8 % (42.0-75.0); Hemoglobin 8.4 g/dL (14.0-18.0); Mean Corpuscular HGB CONC 33.6 g/dL (32.0-36.0); Mean Corpuscular Hemoglobin 34.4 pg (27.0-31.0); Mean Platelet Volume 7.7 fL (7.4-10.4); Platelet Count 86 thou/uL (130-400); RBC Distribution Width 11.6 % (11.5-14.5); Red Blood Cell (RBC) Count 2.43 mill/uL (4.70-6.10); White Blood Cell (WBC) Count 5.2 thou/uL (4.8-10.8)
[2020-06-03 02:24] LABS: Anion Gap 15 mmol/L (10-20); BUN (Urea Nitrogen) 26 mg/dL (8.9-20.6); Calc. Creatinine Clearance 17 mL/min (70-130); Calcium 8.6 mg/dL (7.8-10.44); Carbon Dioxide 27 mmol/L (22-29); Chloride 102 mmol/L (98-107); Critical Call Chem Troponin I RESULT DECREASING; Estimated GFR-MDRD 9; Glucose 77 mg/dL (70-105); Potassium 5.4 mmol/L (3.5-5.1); Sodium 139 mmol/L (136-145); Troponin I 0.638 ng/mL (< 0.028)
[2020-06-03 03:29] LABS: CKMB 6.8 ng/mL (0-6.6)
[2020-06-03 05:47] LABS: CKMB 5.8 ng/mL (0-6.6)
--- NOTE | 2020-06-03 05:59 | PDOC.FM ---
- Subjective Subjective: Mr. Ayala is feeling better today. He is unable to tell me why he is in the hospital and does not remember me despite having met me several times now. This appears to be his normal memory capacity at this point. When I talked to him about his health and missing dialysis, he became tearful. I think he has depression compounding his inability to properly be in charge of his own care. He is agreeable to undergoing therapy and gave me permission to speak to his ex- Tanisha to set this appt up for him. He denies dyspnea/SOB/CP and denies having an episode of CP overnight. He states he has not yet had a bowel moveme nt. He denies vomiting/edema. - Objective Vital Signs & Weight: Vital Signs (12 hours) Temp Pulse Resp BP BP Pulse Ox 06/03/20 04:00 98.2 F 81 182/92 H 97 06/02/20 23:34 175/84 H 06/02/20 22:34 86 198/93 H 06/02/20 19:35 99.4 F 85 18 188/91 H 95 Weight Admit Weight 82 kg Weight 85.2 kg Most Recent Monitor Data Heart Rate from ECG 95 NIBP 131/68 NIBP BP-Mean 89 Respiration from ECG 14 SpO2 100 I&O: 06/01/20 06/02/20 06/03/20 06:59 06:59 06:59 Intake Total 256.4 305.4 550 Output Total 541 302 100 Balance -284.6 3.4 450 Result Diagrams: 06/03/20 01:39 06/03/20 01:39 Phys Exam - Physical Examination Constitutional: NAD (Sitting on edge of bed, trying to order breakfast. Looked like he could not figure out how to use the phone) Neck: supple, full ROM Musculoskeletal: no edema Neurological: non-focal, moves all 4 limbs Psychiatric: A&O x 3 Deviation from normal: Very depressed mood/affect. Poor eye contact Dx/Plan - Plan Plan: Patient is a 45M with PMHx of ESRD on HD, seizure disorder, HTN, HLD, hx of craniotomy admitted for: Cardiac arrest s/p ROSC - Likely in VT on the field > since wave in ER. ROSC x2. Hypothermia on arrival to ED, did not meet criteria for hypothermia protocol - Likely 2/2 hyperkalemia and acidosis from missed HD in ESRD - Nephro consulted, appreciate recs Emergent dialysis on 05/31 - Has had nsr overnight, occasional PVCs - Admitted to CCU, pulm consulted. Moved to floor on 06/01 - Episode of CP overnight with questionably elevated trops and questionable change in EKG. Will consult cards today. Trop 0.638 -> 0.64. Unclear whether these are still coming down after trauma of compressions or whether they are going up Borderline ST changes on EKG, difficult to tell if they are different from previous EKGs CK-MB 6.8. Previously 4.3 during this stay NSTEMI, likely due to demand from hypotension and due to shock/CPR - 0.062 > 0.648 > 1.575 > 2.192 > 2.187 - EKGs have not shown any ST changes - Patient had elevated trops October 2019 when he had a previous admission requiring CPR and defibrillation - Episode of CP overnight with questionably elevated trops and questionable change in EKG. Will consult cards today. Trop 0.638 -> 0.64. Unclear whether these are still coming down after trauma of compressions or whether they are going up Borderline ST changes on EKG, difficult to tell if they are different from previous EKGs CK-MB 6.8. Previously 4.3 during this stay Hyperkalemia in ESRD on HD, resolved ESRD on HD, noncompliance - 7.4 > 4.5 s/p emergent HD > 6.4 - Nephro consulted Repeat dialysis today On [place] Return to [facility] dialysis schedule - Daily CMPs Possible upper GI bleed - Darren blood in OGT on admission, no bloody drainage overnight - Started on IV Protonix BID - FOBT positive but nurse unsure if it was old blood - H/H 9.8/29.3 > 8.8/25.5 > 8/24.8 > 8.4/25, will continue to monitor - No anticoagulation, SCDs for ppx Anemia - Possibly d/t ESRD or GI bleed - Monitoring Hb, as stated above - Consider transfusion if Hb <7 - MCV 105 Chronic diarrhea - Per ex-, for >30 yrs - CDiff, Stool cx, fecal lactoferrin, H. pylori, O&P ordered and pending BM Depression - Flat in affect. Apathetic. Denies SI - On 100mg Sertraline daily Increase to 150mg daily - Suspect hx of craniotomy is contributing. Consider changing medications to tailor to this specifically - Set up outpt therapy appt Respiratory failure requiring mechanical ventilation, resolved - Intubated 05/31. Extubated 06/01. - Moved from CCU to floor on 06/01 - Pulm consulted, recs appreciated Metabolic acidosis likely 2/2 lactic acidosis and uremia - Respiratory acidosis likely due to cardiac arrest, low suspicion for primary respiratory cause. - pH 6.97, pCO2 63.1, pO2 111.5, HCO3 14.3 on admission - pH 7.44, pCO2 29.3, pO2 229.3, HCO3 19.5 on blood gas s/p HD - Lactic acid 12.5 > 3.5 > 7.6> 7.2 - Pulmonology consulted, appreciate recs Hyperglycemia in DM2, resolved DM2 - Initially hyperglycemic, likely 2/2 cardiac arrest and medications given during resuscitation - Received 10 units insulin in ER - A1C: 5.5, though uncertain reliability as patient is on HD - SSI. 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 - On home Coreg, Hydralazine, Nifedipine - Holding Lisinopril for now Dispo: Medical floor, LOS >48h. Plan to set up HH. Consultants: Pulm, Nephro Abx: None at this time Code: Full Lines: R IO, Right femoral venous line Diet: CC GI PPx: protonix Dvt ppx: SCDs
[2020-06-03] MEDS ORDERED: hydrALAZINE 25 MG TAB PO SCH ×3 (06:30→09:00)
--- NOTE | 2020-06-03 06:31 | PDOC.BPN ---
- Brief Progress Note Encounter Date: 06/02/20 Encounter Time: 22:30 Notified that patient was having new chest pain. Patient described R sided chest pain worse with movement. Denied any SOB, palpitations, or radiation of pain. Pain reproducible with palpation on exam, although patient appeared fairly uncomfortable laying in bed. Cardiac exam regular rate & rhythm, no murmurs. Lungs clear. No pitting edema. Also noted to be hypertensive. Ordered troponin and EKG; troponin elevated at 0.6 but lower than earlier this admission. Repeat troponin essentially the same, not rising. EKG with borderline ST changes in V2 and V3, ST depressions in III and aVF, appears unchanged from EKG on 06/01 when troponin was greater than 2. Discussed with attending. Adjusted hypertensive regimen. Will consult cardiology this AM. B.Rehg, DO, Pgy-1
[2020-06-03] MEDS: NIFEdipine XL 30 MG TAB PO SCH (08:28)
[2020-06-03] MEDS: Atorvastatin Calcium 40 MG TAB PO SCH (08:28)
[2020-06-03] MEDS: Cholecalciferol 1,000 UNITS (25 MCG) TAB PO SCH (08:28)
[2020-06-03] MEDS: Carvedilol 3.125 MG TAB PO SCH ×2 (08:28→20:55)
[2020-06-03] MEDS: Pantoprazole 40 MG VIAL IVP SCH ×2 (08:29→20:53)
[2020-06-03] MEDS: Sevelamer Carbonate 800 MG TAB PO SCH ×3 (08:29→20:53)
[2020-06-03] MEDS: levETIRAcetam 500 MG TAB PO SCH ×2 (08:29→20:54)
[2020-06-03] MEDS ORDERED: VELTASSA 8.4 GM PO SCH (09:00)
--- NOTE | 2020-06-03 09:55 | PRG ---
DATE OF SERVICE: 06/03/2020 SUBJECTIVE: Mr. Ayala is a 45-year-old male with ESRD - currently on maintenance hemodialysis. He was initially admitted due to hyperkalemia, which he underwent emergent hemodialysis. In addition, his potassium has still been fluctuating. For that reason, we have decided to place him on maintenance Veltassa 8.4 g daily. The patient has also had some EKG abnormalities with an elevated troponin. For this reason, Cardiology consult is being planned. No new complaints today. No chest pain or shortness of breath. OBJECTIVE: VITAL SIGNS: Blood pressure 154/85, heart rate 82, respiratory rate 12, temperature 98.8, O2 saturation 100%. GENERAL: Awake, alert, comfortable, not in distress. SKIN: Adequate turgor. HEENT: Slightly pale conjunctivae. Anicteric sclerae. NECK: No neck mass. No carotid bruits. No JVD. CHEST: No deformities. LUNGS: Clear breath sounds. HEART: Normal sinus rhythm. No murmur. No gallops. No rubs. ABDOMEN: Globular, soft, nontender. No masses. EXTREMITIES: Trace edema. MEDICATIONS: Medications of June 03, 2020, reviewed. LABORATORY DATA: Laboratories of June 03, 2020; white count 5.2, hemoglobin 8.4, sodium 139, potassium 5.4, chloride 102, carbon dioxide 27, BUN 26, creatinine 6.73, calcium 8.6. Troponin I 0.640. ASSESSMENT AND PLAN: 1. End-stage renal disease, stable. We will continue current Friday, Friday, and Friday hemodialysis. Fluid removal as tolerated. 2. Anemia, continuing weekly Epogen. 3. Mild hyperkalemia - the patient is now placed on Veltassa 8.4 g daily. Continue supportive care. 4. Elevated troponin I - Cardiology consult. 5. Recheck CBC and basic metabolic profile in a.m. Job ID: [id number]
--- NOTE | 2020-06-03 13:41 | EKG ---
Test Reason : Blood Pressure : / mmHG Vent. Rate : 054 BPM Atrial Rate : 054 BPM P-R Int : 000 ms QRS Dur : 170 ms QT Int : 452 ms P-R-T Axes : 000 268 045 degrees QTc Int : 428 ms Wide QRS rhythm Right bundle branch block Abnormal ECG Confirmed by JANETTE JACOB DO ([id number]), web editor OLIVA LANDRY ([id number]) on 06/03/2020 1:40:58 PM Referred By: Confirmed By:JANETTE JACOB DO
[2020-06-03] MEDS: hydrALAZINE 25 MG TAB PO SCH ×2 (15:36→20:54)
--- NOTE | 2020-06-03 18:13 | PRG ---
DATE OF SERVICE: 06/03/2020 Please see the note from Dr. Jaclyn Yip, for which I agree. The patient was seen, evaluated, discussed, and examined with the residents at bedside. Main issue with this gentleman is he continues to get dialysis for the hyperkalemia that he was having that led to cardiac arrest. He is having more chest pain. Troponin level is still elevated, was having a little bit of mild changes on an EKG and get Cardiology involved. This gentleman's mentation after the craniotomy is not the best, so he vaguely remember having chest pain this morning when I talked to him, but it sounds like he is not always the best historian on some of these answers. Not having any chest pain currently. Certainly lot this could be after the cardiac CPR. There may still just be chest wall irritation from that, but definitely vasculopath and so we will get Cardiology involved. Job ID: [id number]
[2020-06-03] MEDS ORDERED: Lisinopril 20 MG TAB PO SCH (18:15)
[2020-06-03] MEDS: Lidocaine 5% Patch TD PRN (21:10)
[2020-06-03] MEDS: Acetaminophen 325 MG TAB PO PRN (21:10)
--- NOTE | 2020-06-04 00:49 | CON ---
DATE OF CONSULTATION: HISTORY: Wilbert Ayala is a 45-year-old male with end-stage renal disease and previous cardiac arrest due to hyperkalemia. He is frequently noncompliant with his dialysis. He was admitted on May after he arrested at home. He apparently vomited, became unresponsive, and the family started CPR and called the EMS. EMS gave bicarb x1, calcium chloride, epinephrine, lidocaine. He was intubated and return of spontaneous circulation was achieved in the field. When he arrived in the emergency room, he had a second code and again was given bicarb, dextrose, insulin, calcium chloride, epinephrine. He was shocked twice and had sine wave rhythm. His troponin I went up to 2.192. He ultimately was extubated and transferred to the floor. Today, he complained of some chest discomfort, which was on the right side of his chest, somewhat pleuritic and tender to palpation. He has had a troponin I of 0.638. At the present time, he complains of mild discomfort, but he has definitely noted palpable tenderness related to this pain. He has seen Dr. Patel in the past. He underwent cardiac catheterization at [facility] in June 2017. This revealed an ejection fraction of 35% to 40% with global hypokinesis. There was 20% stenosis in the mid and distal LAD. There was a 40% proximal stenosis in the right coronary artery. He has not seen Dr. Patel since that time. PAST MEDICAL HISTORY: End-stage renal disease, noncompliant with dialysis; diabetes; hypertension; seizure disorder. OPERATIONS: Craniotomy for AV malformation rupture, left arm fistula, 5th right toe amputation. SOCIAL HISTORY: He smoked about 1/2 pack per day, but stopped 10 years ago. He does not drink alcohol. MEDICATIONS: 1. Aspirin 81 daily. 2. Atorvastatin 40 daily. 3. Carvedilol 3.125 b.i.d. 4. Auryxia 2 tablets t.i.d. 5. Apresoline 100 t.i.d. 6. Keppra 500 mg b.i.d. 7. Lisinopril 20 daily. 8. Loperamide 2 mg q.i.d. 9. Melatonin 3 mg at bedtime p.r.n. 10. Procardia 30 daily. 11. Zoloft 50 daily. 12. Dilantin 50 mg t.i.d. 13. Renvela 2 tablets t.i.d. ALLERGIES: PENICILLIN. REVIEW OF SYSTEMS: Unremarkable except as noted above. PHYSICAL EXAMINATION: VITAL SIGNS: 187/87, pulse of 82. HEENT: PERRL. NECK: Supple. CHEST: Clear. CARDIAC: S1 and S2 normal without any S3, S4, murmurs, or rubs. ABDOMEN: Normal bowel sounds without tenderness. EXTREMITIES: Revealed no clubbing, cyanosis, or edema. NEUROLOGICAL: Grossly intact. SKIN: Warm and dry. MUSCULOSKELETAL: Revealed palpable right-sided chest pain that seems to reproduce his discomfort. LABORATORY DATA: EKG today revealed normal sinus rhythm with minimal criteria for left ventricular hypertrophy. Troponin I as noted above. Sodium 139, potassium 5.4, chloride 102, carbon dioxide 27, BUN 26, creatinine 2.73. On admission, his potassium was 7.4, hemoglobin 8.4, hematocrit 24.9, white count 5200, platelets 86,000. COVID is not detected. IMPRESSION: 1. Status post cardiac arrest secondary to hyperkalemia. 2. Noncompliant with dialysis. 3. End-stage renal disease. 4. Mild coronary artery disease on catheterization in June 2017. 5. Last ejection fraction of 50% to 55% on echo in October 2019. 6. Chest pain which is most consistent with pain from CPR. Pain is somewhat pleuritic and he has palpable chest wall tenderness. His cardiac enzymes are consistent with his arrest and gradual falling of the troponin over the last several days and I do not feel that he has had any infarction. 7. Diabetes. 8. Hypertension. 9. Seizure disorder. PLAN: At the present time, I do not feel any further cardiac evaluation is warranted and he should be treated symptomatically. Job ID: [id number]
[2020-06-04 04:42] LABS: #Eosinphils 0.1 thou/uL (0.0-0.7); #Lymphocytes 1.1 thou/uL (1.20-3.40); #Monocytes 0.3 thou/uL (0.11-0.59); #Neutrophils 2.1 thou/uL (1.40-6.50); %Basophils 0.3 % (0.0-1.0); %Eosinophils 3.3 % (0.0-10.0); %Lymphocytes 30.2 % (21.0-51.0); %Monocytes 8.8 % (0.0-10.0); %Neutrophils 57.4 % (42.0-75.0); Mean Corpuscular HGB CONC 33.4 g/dL (32.0-36.0); Mean Corpuscular Hemoglobin 34.1 pg (27.0-31.0); Mean Platelet Volume 8.1 fL (7.4-10.4); Platelet Count 80 thou/uL (130-400); RBC Distribution Width 11.6 % (11.5-14.5); Red Blood Cell (RBC) Count 2.34 mill/uL (4.70-6.10); White Blood Cell (WBC) Count 3.7 thou/uL (4.8-10.8)
[2020-06-04 05:18] LABS: Anion Gap 20 mmol/L (10-20); BUN (Urea Nitrogen) 35 mg/dL (8.9-20.6); Calc. Creatinine Clearance 11 mL/min (70-130); Calcium 8.2 mg/dL (7.8-10.44); Carbon Dioxide 21 mmol/L (22-29); Chloride 100 mmol/L (98-107); Estimated GFR-MDRD 6; Glucose 72 mg/dL (70-105); Potassium 5.5 mmol/L (3.5-5.1); Sodium 135 mmol/L (136-145)
--- NOTE | 2020-06-04 05:45 | PDOC.FM ---
- Subjective Subjective: Mr. Ayala is doing well this morning and complains only of the callous on his R foot hurting. He endorses diarrhea and says he had some yesterday but that the lady that came to clean his room flushed it. I instructed him to call his nurse the next time he has one so we can get a sample for his stool studies, including CDiff, prior to it getting flushed. He denies dyspnea/SOB/CP/V. - Objective Vital Signs & Weight: Vital Signs (12 hours) Temp Pulse Resp BP BP Pulse Ox 06/04/20 03:59 98.2 F 71 15 165/85 H 98 06/03/20 23:25 154/81 H 06/03/20 20:54 75 183/90 H 06/03/20 19:40 97.3 F L 75 14 183/90 H 97 Weight Admit Weight 82 kg Weight 77.8 kg Most Recent Monitor Data Heart Rate from ECG 95 NIBP 131/68 NIBP BP-Mean 89 Respiration from ECG 14 SpO2 100 I&O: 06/02/20 06/03/20 06/04/20 06:59 06:59 06:59 Intake Total 305.4 550 1450 Output Total 302 100 225 Balance 3.4 450 1225 Result Diagrams: 06/04/20 04:30 06/04/20 04:30 Phys Exam - Physical Examination Constitutional: NAD (Sitting up in bed) HEENT: moist MMs Neck: supple Respiratory: no wheezing, no rales, no rhonchi, clear to auscultation bilateral Difficult to auscultate clearly d/t disposable stethoscope Cardiovascular: RRR, no significant murmur Difficult to auscultate clearly d/t disposable stethoscope Gastrointestinal: soft, no distention, positive bowel sounds Mild tenderness to palpation Musculoskeletal: no edema, pulses present Neurological: moves all 4 limbs Psychiatric: normal affect (He seems a bit less depressed today), A&O x 3 Skin: no rash Dx/Plan - Plan Plan: Plan: Patient is a 45M with PMHx of ESRD on HD, seizure disorder, HTN, HLD, hx of craniotomy admitted for: Cardiac arrest s/p ROSC - Likely in VT on the field > since wave in ER. ROSC x2. Hypothermia on arrival to ED, did not meet criteria for hypothermia protocol - Likely 2/2 hyperkalemia and acidosis from missed HD in ESRD - Nephro consulted, appreciate recs Emergent dialysis on 05/31 - Has had nsr overnight, occasional PVCs - Admitted to CCU, pulm consulted. Moved to floor on 06/01 NSTEMI, likely due to demand from hypotension and due to shock/CPR - 0.062 > 0.648 > 1.575 > 2.192 > 2.187 - EKGs have not shown any ST changes - Patient had elevated trops October 2019 when he had a previous admission requiring CPR and defibrillation - Episode of CP overnight with questionably elevated trops and questionable change in EKG. Will consult cards today. Trop 0.638 -> 0.64. Unclear whether these are still coming down after trauma of compressions or whether they are going up Borderline ST changes on EKG, difficult to tell if they are different from previous EKGs CK-MB 6.8. Previously 4.3 during this stay - Consulted Cardiology on 06/03. Dr. Leahy feels the troponins and CP are still related to CPR and feels his EKG is not concerning for TX at this time Hyperkalemia in ESRD on HD, resolved ESRD on HD, noncompliance - 7.4 > 4.5 s/p emergent HD > 6.4 > 5.5 - Nephro consulted Return to [facility] dialysis schedule - On Valtessa per nephro - Daily CMPs Possible upper GI bleed - Darren blood in OGT on admission, no bloody drainage overnight - Started on IV Protonix BID - FOBT positive but nurse unsure if it was old blood - H/H 9.8/29.3 > 8.8/25.5 > 8/24.8 > 8.4/25, will continue to monitor - No anticoagulation, SCDs for ppx Anemia - Possibly d/t ESRD or GI bleed - Monitoring Hb, as stated above - Consider transfusion if Hb <7 - MCV 105 Chronic diarrhea - Per ex-, for >30 yrs - CDiff, Stool cx, fecal lactoferrin, H. pylori, O&P ordered and pending BM Depression - Flat in affect. Apathetic. Denies SI - On 100mg Sertraline daily Increase to 150mg daily - Suspect hx of craniotomy is contributing. Consider changing medications to tailor to this specifically - Set up outpt therapy appt Respiratory failure requiring mechanical ventilation, resolved - Intubated 05/31. Extubated 06/01. - Moved from CCU to floor on 06/01 - Pulm consulted, recs appreciated Metabolic acidosis likely 2/2 lactic acidosis and uremia - Respiratory acidosis likely due to cardiac arrest, low suspicion for primary respiratory cause. - pH 6.97, pCO2 63.1, pO2 111.5, HCO3 14.3 on admission - pH 7.44, pCO2 29.3, pO2 229.3, HCO3 19.5 on blood gas s/p HD - Lactic acid 12.5 > 3.5 > 7.6> 7.2 - Pulmonology consulted, appreciate recs Hyperglycemia in DM2, resolved DM2 - Initially hyperglycemic, likely 2/2 cardiac arrest and medications given during resuscitation - Received 10 units insulin in ER - A1C: 5.5, though uncertain reliability as patient is on HD - SSI. 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 - On home Coreg, Hydralazine, Nifedipine - Holding Lisinopril for now Dispo: Medical floor, discharge today. Consultants: Maria Luisa, Nephro Abx: None at this time Code: Full Lines: R IO, Right femoral venous line Diet: CC GI PPx: protonix Dvt ppx: SCDs
[2020-06-04] MEDS ORDERED: Lisinopril 20 MG TAB PO SCH (09:00)
[2020-06-04] MEDS: NIFEdipine XL 30 MG TAB PO SCH (09:07)
[2020-06-04] MEDS: Cholecalciferol 1,000 UNITS (25 MCG) TAB PO SCH (09:07)
[2020-06-04] MEDS: Carvedilol 3.125 MG TAB PO SCH (09:07)
[2020-06-04] MEDS: Atorvastatin Calcium 40 MG TAB PO SCH (09:07)
[2020-06-04] MEDS: Sevelamer Carbonate 800 MG TAB PO SCH (09:09)
[2020-06-04] MEDS: hydrALAZINE 25 MG TAB PO SCH (09:10)
[2020-06-04] MEDS: Pantoprazole 40 MG VIAL IVP SCH (09:10)
[2020-06-04] MEDS: levETIRAcetam 500 MG TAB PO SCH (09:10)
--- NOTE | 2020-06-04 10:50 | PRG ---
DATE OF SERVICE: 06/04/2020 Patient has done fine overnight, nothing new. He is having a little bit of loose stools and having a hard time collecting the specimen and I think it was finally sent this morning, but it is nothing too impressive. Cardiology thought all of this chest pain was from the cardiac arrest and code that he went through twice and did not think there was anything wrong with the heart, nor did they think that we needed a stress test currently. So we are going to discharge him home and we will follow up with those cultures as an outpatient. Urged compliance on getting dialysis 3 days a week. He states he is going to have somebody drive him to dialysis tomorrow. He is on Friday, Friday, Friday schedule. Job ID: [id number]
--- NOTE | 2020-06-04 11:13 | PRG ---
DATE OF SERVICE: 06/04/20 SUBJECTIVE: Mr. Ayala is a 45-year-old male with ESRD, on maintenance hemodialysis, admitted for hyperkalemia. He underwent emergent hemodialysis with improvement of the hyperkalemia. He also went to acute respiratory failure, was transiently intubated and subsequently extubated. He is feeling better. Cardiology has been consulted due to the elevated troponin I. As per recommendation, Cardiology recommended supportive care. No invasive procedure is being contemplated. Patient denies any chest pain or shortness of breath. OBJECTIVE: VITAL SIGNS: Blood pressure 189/89, heart rate 68, respiratory rate 16, temperature 97.7, O2 saturation 100%. GENERAL: Patient is awake, alert, comfortable, not in overt distress. SKIN: Adequate turgor. HEENT: He has a pinkish conjunctivae. Anicteric sclerae. NECK: No neck mass. No carotid bruits. No JVD. CHEST: No deformities. LUNGS: Clear breath sounds. HEART: Normal sinus rhythm. No murmur. No gallops. No rubs. ABDOMEN: Globular, soft, nontender. No masses. EXTREMITIES: No edema. No deformities. MEDICATIONS: Medications of June 04, 2020, reviewed. LABORATORY DATA: June 04, 2020, white count 3.7, hemoglobin 8. Sodium 135, potassium 5.5, chloride 100, carbon dioxide 21, creatinine 9.41, glucose 72, calcium 8.2. ASSESSMENT AND PLAN: 1. Hyperkalemia, much improved. Currently, on supplemental Veltassa for the hyperkalemia: 8.4 g daily. 2. End-stage renal disease. Continuing Friday, Friday, Friday hemodialysis regimen. No changes will be made with the current dialysis regimen. Fluid removal only as tolerated. He is scheduled for tomorrow's dialysis. There is no indication for an emergent hemodialysis today. 3. Anemia. Continuing weekly Epogen with this patient. 4. Chest pain, resolved. Cardiology has cleared the patient. Job ID: [id number] MTDD
[2020-06-04 11:26] VITALS: BP 166/85; TEMP 97.9
--- NOTE | 2020-06-04 21:50 | DIS ---
DATE OF ADMISSION: 05/31/2020 DATE OF DISCHARGE: 06/04/2020 RESIDENT: Jaclyn Yip MD ADMITTING ATTENDING: Markus Swift MD DISCHARGE ATTENDING: Zackery Cespedes MD. CONSULTS: 1. Nephrology - Dr. Shin (05/31). 2. Pulmonology - Dr. Wing (05/31). 3. Cardiology - Dr. Leahy (06/03). PROCEDURES: 1. Emergent dialysis (05/31). 2. Intubation (05/31). 3. Right groin central line (05/31). 4. Orogastric tube (05/31). 5. Right IO (05/31). 6. Extubation (06/01). PRIMARY DIAGNOSES: 1. Cardiac arrest, status post return of spontaneous circulation (ROSC). 2. Mmq-FK-xryifzekt myocardial infarction, likely due to demand from hypotension and to shock/CPR. 3. Hyperkalemia and end-stage renal disease on hemodialysis, resolved. 4. End-stage renal disease on hemodialysis, noncompliance. 5. Possible upper gastrointestinal bleed. 6. Anemia. 7. QTc prolongation. 8. Metabolic acidosis secondary to lactic acid. SECONDARY DIAGNOSES: 1. Chronic diarrhea. 2. Depression. 3. Hyperglycemia and type 2 diabetes. 4. Seizure disorder. 5. Hypertension. DISCHARGE MEDICATIONS: 1. Epoetin 7500 units subcu, q.7 days. 2. Zoloft 150 mg p.o. daily. 3. Phenytoin 50 mg p.o. t.i.d. 4. Aspirin 81 mg p.o. daily. 5. Keppra 500 p.o. b.i.d. 6. Vitamin D3 200 units p.o. daily. 7. Atorvastatin 40 mg p.o. daily. 8. Coreg 3.125 mg p.o. b.i.d. 9. Ferric citrate 2 tabs p.o. t.i.d. 10. Renvela 2 tablets p.o. t.i.d. 11. Lisinopril 20 mg p.o. daily. 12. Loperamide 2 mg p.o. q.i.d. 13. Hydralazine 100 mg p.o. t.i.d. 14. Melatonin 3 mg p.o. at bedtime. 15. Nifedipine 30 mg p.o. daily. Discontinued medications: Zoloft 50 mg p.o. daily. HISTORY OF PRESENT ILLNESS/HOSPITAL COURSE: This is a 45-year-old male with a past medical history of end-stage renal disease and previous cardiac arrest, who was brought in by EMS for ROSC following cardiac arrest. He is noncompliant with dialysis and came in with a potassium of 7.8, which is believed to be the cause of cardiac arrest at this time. ROSC was achieved by EMS and then occurred a second time in the ED. The patient was intubated and admitted to CCU and received emergent dialysis. There was bloody output from his OG tube suspicious for GI bleed and fecal occult blood test was positive, so DVT prophylaxis was held and hemoglobin was monitored. His initial troponin was indeterminate at 0.062, but quickly gus to 2.192 which was suspected to be related to compressions and ischemic injury from hypoperfusion during cardiac arrest. There was low suspicion for NSTEMI and no notable ST changes on EKG. He was initially hyperglycemic, and it was suspected this was also due to cardiac arrest and medications given during resuscitation. Labs did not support a diagnosis of DKA, so DKA protocol was not begun. On 06/01, the patient was extubated. Nephrology felt comfortable with him returning to his [facility] dialysis schedule and started him on Veltassa 8.4 g daily due to a consistently high potassium. Overnight on the , the patient started complaining of chest pain. While it appeared some of the pain was musculoskeletal and likely secondary to CPR, a repeat troponin and an EKG were obtained. The troponin was indeterminate at 0.64 and it was unclear whether this was the troponin downtrending from the aforementioned injury or whether this was the troponin going back up. There were borderline ST changes on EKG, so Cardiology was consulted. After evaluation, they determined this was likely all related to cardiac arrest and CPR, and they were not concerned for any NSTEMI or cardiac event. At this point, the patient was determined to be stable and was discharged. DISPOSITION: Stable. DISCHARGE INSTRUCTIONS: Location: Home. Diet: Renal diet, fluid restriction of 1800 mL. Activity: As tolerated. Followup: Recommend following up with PCP in 7 to 10 days to manage prescription medications and for referral to therapy. Job ID: [id number] [email or web address]
--- NOTE | 2020-06-05 14:11 | EKG ---
Test Reason : Blood Pressure : / mmHG Vent. Rate : 101 BPM Atrial Rate : 101 BPM P-R Int : 150 ms QRS Dur : 090 ms QT Int : 386 ms P-R-T Axes : 076 067 081 degrees QTc Int : 500 ms Sinus tachycardia Otherwise normal ECG When compared with ECG of 18-MAY-2020 16:47, QRS duration has decreased Confirmed by TESFAYE HAYWARD M.D. ([id number]) on 06/05/2020 2:11:01 PM Referred By: FLAVIO sevilla Confirmed By:TESFAYE HAYWARD M.D.
--- NOTE | 2020-06-05 14:23 | EKG ---
Test Reason : STAT Blood Pressure : / mmHG Vent. Rate : 085 BPM Atrial Rate : 085 BPM P-R Int : 162 ms QRS Dur : 096 ms QT Int : 366 ms P-R-T Axes : 045 037 085 degrees QTc Int : 435 ms Normal sinus rhythm Moderate voltage criteria for LVH, may be normal variant Borderline ECG When compared with ECG of 01-JUN-2020 08:16, (Unconfirmed) No significant change was found Confirmed by TESFAYE HAYWARD M.D. ([id number]) on 06/05/2020 2:23:30 PM Referred By: FLAVIO Confirmed By:TESFAYE HAYWARD M.D.
--- NOTE | 2020-06-05 14:23 | EKG ---
Test Reason : STAT Blood Pressure : / mmHG Vent. Rate : 082 BPM Atrial Rate : 082 BPM P-R Int : 162 ms QRS Dur : 094 ms QT Int : 376 ms P-R-T Axes : 042 036 078 degrees QTc Int : 439 ms Normal sinus rhythm Moderate voltage criteria for LVH, may be normal variant Borderline ECG No previous ECGs available Confirmed by TESFAYE HAYWARD M.D. ([id number]) on 06/05/2020 2:23:41 PM Referred By: FLAVIO Confirmed By:TESFAYE HAYWARD M.D.
--- NOTE | 2020-06-05 14:24 | EKG ---
Test Reason : STAT Blood Pressure : / mmHG Vent. Rate : 081 BPM Atrial Rate : 081 BPM P-R Int : 166 ms QRS Dur : 094 ms QT Int : 378 ms P-R-T Axes : 047 039 078 degrees QTc Int : 439 ms Normal sinus rhythm Minimal voltage criteria for LVH, may be normal variant Borderline ECG When compared with ECG of 02-JUN-2020 22:50, (Unconfirmed) No significant change was found Confirmed by TESFAYE HAYWARD M.D. ([id number]) on 06/05/2020 2:23:52 PM Referred By: REHG Confirmed By:TESFAYE HAYWARD M.D.
--- NOTE | 2020-06-05 15:16 | EKG ---
Test Reason : Blood Pressure : / mmHG Vent. Rate : 083 BPM Atrial Rate : 083 BPM P-R Int : 164 ms QRS Dur : 096 ms QT Int : 410 ms P-R-T Axes : 067 053 073 degrees QTc Int : 481 ms Normal sinus rhythm Prolonged QT Abnormal ECG Confirmed by TESFAYE HAYWARD M.D. ([id number]) on 06/05/2020 3:15:52 PM Referred By: FLAVIO sevilla Confirmed By:TESFAYE HAYWARD M.D.
== END 2020-06-04 11:59 | disposition home or self-care (01) | DRG 637 ==
LOC: ERS 16:53 → CCU 19:35 → 2NO 06-01 15:30
PROVIDERS: ADMIT Emergency Medicine; ATTEND Emergency Medicine
PROC: 5A1935Z Respiratory Ventilation, Less than 24 Consecutive Hours (ICD-10-PCS; principal; 2020-05-31)
PROC: 0BH17EZ Insertion of Endotracheal Airway into Trachea, Via Natural or Artificial Opening (ICD-10-PCS; 2020-05-31)
PROC: 02HV33Z Insertion of Infusion Device into Superior Vena Cava, Percutaneous Approach (ICD-10-PCS; 2020-05-31)
PROC: 5A1D70Z Performance of Urinary Filtration, Intermittent, Less than 6 Hours Per Day (ICD-10-PCS; 2020-05-31)
DX: E11.65 Type 2 diabetes mellitus with hyperglycemia (principal); I21.A1 Myocardial infarction type 2; N18.6 End stage renal disease; J96.20 Acute and chronic respiratory failure, unspecified whether with hypoxia or hypercapnia; I46.8 Cardiac arrest due to other underlying condition; K92.2 Gastrointestinal hemorrhage, unspecified; I12.0 Hypertensive chronic kidney disease with stage 5 chronic kidney disease or end stage renal disease; I47.2 Ventricular tachycardia; E87.2 Acidosis; E87.5 Hyperkalemia; Z20.828 Contact with and (suspected) exposure to other viral communicable diseases; E11.22 Type 2 diabetes mellitus with diabetic chronic kidney disease; D63.1 Anemia in chronic kidney disease; I45.81 Long QT syndrome; F32.9 Major depressive disorder, single episode, unspecified; G40.909 Epilepsy, unspecified, not intractable, without status epilepticus; Z99.2 Dependence on renal dialysis; Z91.15 Patient's noncompliance with renal dialysis; Z87.891 Personal history of nicotine dependence; Z88.0 Allergy status to penicillin; Z79.899 Other long term (current) drug therapy; Z79.84 Long term (current) use of oral hypoglycemic drugs
CPT/HCPCS: 36415; 36416; 36556; 51702; 70450; 71045; 80048; 80053; 80076; 80177; 80185; 81003; 81015; 82010; 82274; 82550; 82553; 82805; 83036; 83605; 83735; 84484; 85025; 85610; 85730; 87086; 87340; 87635; 90935; 92950; 93005; 93010; 94003; 96361; 96374; 96375; 96376; C9113; G0257; J0171; J1815; J1940; J1953; J2704; J3010; J3490; J7611; Q2009; Q5105; U0003

== ENCOUNTER 2020-06-06 11:16 | Inpatient (IN) | payer MEDICARE, OTHER ==
[2020-06-06] MEDS ORDERED: Nitroglycerin 2% Ointment 1 INCH/1 GM Packet ONE (11:49)
[2020-06-06] MEDS ORDERED: Aspirin Chewable 81 MG TAB ONE (11:49)
[2020-06-06 11:53] LABS: #Eosinphils 0.1 thou/uL (0.0-0.7); #Monocytes 0.4 thou/uL (0.11-0.59); #Neutrophils 1.6 thou/uL (1.40-6.50); %Lymphocytes 31.6 % (21.0-51.0); %Monocytes 12.7 % (0.0-10.0); %Neutrophils 51.6 % (42.0-75.0); Hemoglobin 8.7 g/dL (14.0-18.0); Mean Corpuscular HGB CONC 33.7 g/dL (32.0-36.0); Mean Corpuscular Hemoglobin 34.2 pg (27.0-31.0); Platelet Count 147 thou/uL (130-400); RBC Distribution Width 11.7 % (11.5-14.5); Red Blood Cell (RBC) Count 2.56 mill/uL (4.70-6.10); White Blood Cell (WBC) Count 3.2 thou/uL (4.8-10.8)
--- NOTE | 2020-06-06 11:54 | RAD ---
Portable frontal chest radiograph: 06/06/2020 COMPARISON: 05/31/2020 HISTORY: Chest pain, dialysis patient FINDINGS: Endotracheal tube and nasogastric tube have been removed since the prior exam. No pneumotho rax or pleural fluid. No focal consolidation or alveolar edema. Heart and mediastinal contours are unremarkable. IMPRESSION: No acute findings.
[2020-06-06 12:22] LABS: ALT (SGPT) 69 U/L (8-55); AST (SGOT) 23 U/L (5-34); Albumin 3.9 g/dL (3.5-5.0); Alkaline Phosphatase 91 U/L (40-110); Anion Gap 16 mmol/L (10-20); BUN (Urea Nitrogen) 25 mg/dL (8.9-20.6); Bilirubin, Total 0.3 mg/dL (0.2-1.2); Calc. Creatinine Clearance 0 mL/min (70-130); Calcium 9.2 mg/dL (7.8-10.44); Carbon Dioxide 26 mmol/L (22-29); Chloride 101 mmol/L (98-107); Estimated GFR-MDRD 8; Globulin 2.9 g/dL (2.4-3.5); Glucose 137 mg/dL (70-105); Potassium 5.3 mmol/L (3.5-5.1); Protein, Total 6.8 g/dL (6.0-8.3); Sodium 138 mmol/L (136-145)
[2020-06-06 12:38] LABS: CKMB 2.7 ng/mL (0-6.6)
--- NOTE | 2020-06-06 13:57 | PDOC.FPRHP ---
- History of Present Illness Chief Complaint: Chest Pain History of Present Illness: Patient says he came to ER today because he was worried about his potassium levels. He did have dialysis done yesterday. He says yesterday he did have some chest pain just after completing dialysis, mainly occurs when he coughs. Describ es pain as sharp, when he coughs it is a 10 out of 10. Pain described as achy and sore when resting. Denies radiation of pain, paresthesias, SOB, sputum production. Also reports some diarrhea that started yesterday, is somewhat watery but still formed. No fever or bloody BM. No N/V. ED Course: nitro, ASA - Allergies/Adverse Reactions Allergies Allergy/AdvReac Type Severity Reaction Status Date / Time Penicillins Allergy Intermediate Hives Verified 05/19/20 04:38 - Home Medications Medication Instructions Recorded Confirmed Type Phenytoin Sodium Extended 50 mg PO TID 04/20/17 06/01/20 History Aspirin [Ecotrin Low Strength] 81 mg PO DAILY 11/03/19 06/01/20 History Atorvastatin Calcium 40 mg PO DAILY 11/03/19 06/01/20 History Carvedilol [Coreg] 3.125 mg PO BID 11/03/19 06/01/20 History Cholecalciferol (Vitamin D3) 2,000 unit PO DAILY 11/03/19 06/01/20 History [Vitamin D3] levETIRAcetam [Keppra] 500 mg PO BID 11/03/19 06/01/20 History Ferric Citrate [Auryxia] 2 tab PO TID 05/19/20 06/01/20 History Lisinopril 20 mg PO DAILY 05/19/20 06/01/20 History Loperamide HCl [Loperamide] 2 mg PO QID 05/19/20 06/01/20 History Melatonin 3 mg PO HS PRN tab 05/19/20 06/01/20 Rx NIFEdipine [Procardia XL] 30 mg PO DAILY 30 Days #30 tab 05/19/20 06/01/20 Rx Sevelamer Carbonate [Renvela] 2 tablet PO TID 05/19/20 06/01/20 History hydrALAZINE [Apresoline] 100 mg PO TID 30 Days #120 tab 05/19/20 06/01/20 Rx Epoetin Murali-Epbx [Retacrit] 7,500 unit SC Q7D 30 Days #8 vial 06/04/20 Rx Sertraline HCl [Zoloft] 150 mg PO DAILY 30 Days #30 tab 06/04/20 Rx Ibuprofen 600 mg PO Q8H #21 capsule 06/06/20 Rx - History PMHx: ESRD on HD, DM, HTN, Seizure disorder, AVM rupture, Cardiac arrest with ROSC on 05/31 PSHx: crainiotomy, L arm fistula, R 5th toe amputation FHx: noncontributory Social: former smoker, smoked 1/2 ppd, quit 10 years ago, no alcohol or drug use - Review of Systems General: denies: fever/chills, fatigue Eyes: denies: vision changes ENT: denies: nasal congestion Respiratory: reports: cough (dry). denies: congestion, shortness of breath, exercise intolerance Cardiovascular: reports: chest pain. denies: palpitation, edema Gastrointestinal: reports: diarrhea (watery formed BMs). denies: nausea, vomiting, constipation, abdominal pain Genitourinary: denies: dysuria Skin: denies: rashes, lesions, jaundice Musculoskeletal: denies: pain, swelling, arthritis/arthralgias Neurological: reports: seizure (last seizure over 1 year ago). denies: numbness, syncope, weakness Psychological: denies: anxiety, depression - Vital signs BP: 161/91, MAP: 114, Pulse: 70, Resp: 15, O2 sat: 99 on (Room Air), Time: 06/06/2020 12:08. - Physical Exam Constitutional: NAD, awake, alert and oriented, well developed HEENT: normocephalic and atraumatic, EOMI, conjunctiva clear, grossly normal vision, grossly normal hearing, MMM Neck: supple, FROM, no JVD Chest: no lesions -Chest: TTP over ribs 4-6, reproducible pain Heart: RRR, normal S1/S2, no murmurs/rubs/gallops, pulses present, no edema Lungs: CTAB, no respiratory distress Abdomen: soft, no masses/distention Musculoskeletal: normal structure, normal tone, ROM grossly normal Neurological: no focal deficit, normal sensation Skin: no rash/lesions, good turgor, no jaundice Heme/Lymphatic: no unusual bruising or bleeding Psychiatric: normal mood and affect, intact recent and remote memory FMR H&P: Results - Labs Result Diagrams: 06/06/20 11:45 06/06/20 11:45 Lab results: WBC 3.2 thou/uL (4.8-10.8) L 06/06/20 11:45 Hgb 8.7 g/dL (14.0-18.0) L 06/06/20 11:45 Hct 25.9 % (42.0-52.0) L 06/06/20 11:45 MCV 101.0 fL (78.0-98.0) H 06/06/20 11:45 Plt Count 147 thou/uL (130-400) 06/06/20 11:45 Neutrophils % 51.6 % (42.0-75.0) 06/06/20 11:45 Sodium 138 mmol/L (136-145) 06/06/20 11:45 Potassium 5.3 mmol/L (3.5-5.1) H 06/06/20 11:45 Chloride 101 mmol/L (98-107) 06/06/20 11:45 Carbon Dioxide 26 mmol/L (22-29) 06/06/20 11:45 BUN 25 mg/dL (8.9-20.6) H 06/06/20 11:45 Creatinine 7.27 mg/dL (0.7-1.3) H 06/06/20 11:45 Glucose 137 mg/dL (70-105) H 06/06/20 11:45 Calcium 9.2 mg/dL (7.8-10.44) 06/06/20 11:45 Total Bilirubin 0.3 mg/dL (0.2-1.2) 06/06/20 11:45 AST 23 U/L (5-34) 06/06/20 11:45 ALT 69 U/L (8-55) H 06/06/20 11:45 Alkaline Phosphatase 91 U/L (40-110) 06/06/20 11:45 CK-MB (CK-2) 2.7 ng/mL (0-6.6) 06/06/20 11:45 B-Natriuretic Peptide 243.9 pg/mL (0-100) H 06/06/20 11:45 Serum Total Protein 6.8 g/dL (6.0-8.3) 06/06/20 11:45 Albumin 3.9 g/dL (3.5-5.0) 06/06/20 11:45 FMR H&P: A/P - Problem List (1) History of cardiac arrest Status: Acute Code(s): Z86.74 - PERSONAL HISTORY OF SUDDEN CARDIAC ARREST (2) Chest pain Status: Acute Code(s): R07.9 - CHEST PAIN, UNSPECIFIED Comment: Prob due to sym anemia (3) DMII (diabetes mellitus, type 2) Status: Acute (4) HTN (hypertension) Status: Acute Code(s): I10 - ESSENTIAL (PRIMARY) HYPERTENSION (5) ESRD (end stage renal disease) Status: Chronic Code(s): N18.6 - END STAGE RENAL DISEASE - Plan This is a 45 y/o M with a PMHx of ESRD, DM2, HTN, Chronic Diarrhea, Seizure disorder, who presents today with chest pain. ##Atypical Chest Pain -2/2 most likely to MSK due to reproducible nature of CP -was last discharged on 06/04 and was admitted on t 05/31 for cardiac arrest 2/2 hyperkalemia 2/2 non compliance with dialysis; cardiology was consulted during this admission for non-specific ST changes and at that time there was no intervention needed as pt's troponins trended downward and this was most likely presumed to be due to CPR he had received, the rest of his admission had been unremarkable. -initial trop 0.124, lower than upon discharge on 06/04, will trend this -initial EKG showed no ST changes -CXR was neg for acute cardiopulmonary process -echo in 11/04 showed EF 50-55% ##Hyperkalemia -K = 5.3, down from 5.5 upon discharge on 06/04 -has dialysis tomorrow, was compliant and attended dialysis yesterday ##ESRD; MWF -Dr. Shin is line camera operator -ask advise for anti-inflammatory medications that we can use for MSK CP Dispo: pending trend of troponins. if trending downward, will dc. will advised close f/u with dialysis tomorrow, PCP, and cardiology outpatient. FMR H&P: Upper Level - Pertinent history Patient is a 45 yo male who presents with complaint of chest pain when he coughs or takes a deep breath. Noticed yesterday when he was at dialysis. Patient has a history of multiple episodes of cardiac arrest, most recently on 05/31/2020. Cardiology, Dr. Leahy was consulted at that time and he did not feel like the patient had an infarction and did not require any further workup. Chest pain today does not radiate, no other symptoms. Denies any SOB, congestion, nausea, vomiting, heartburn, chest pain with exertion. He was given Nitro and ASA in the ED. States Nitro did not help much with pain. - Pertinent findings Physical Exam: HEENT: NC/AT. EOMI. MMM. Nares patent. Cardiac: RRR. No murmur. Normal S1S2. Respiratory: CTAB Chest: TTP over ribs 5-6. Reproducible pain with palpation. Abdomen: Soft, nontender, nondistended. Extremities: No cyanosis or edema. Peripheral pulses 2+ bilaterally. Neuro: No focal deficits. A&O x 3 Skin: Warm, dry. - Plan Date/Time: 06/06/20 1356 IAnabell DO, PGY-2, have evaluated this patient and agree with findings/plan as outlined by corporate legal intern resident. Pertinent changes/additions are listed here. #Atypical Chest Pain -low suspicion for ACS origin, likely due to musculoskeletal pain (Costochondritis vs rib fx) s/p CPR on 05/31/2020 -EKG today shows NSR, rate 74, no ST/T wave changes -Troponin 0.124 (down from discharge trop of 0.6 on 06/03), will trend -called Dr. Shin, patient's line camera operator, he reviewed today's lab and patient has no need for emergent dialysis, can continue current dialysis schedule (next time is tomorrow). He is okay with patient receiving any NSAID of choice -Cardiology, Dr. Leahy was consulted during last admission, felt that chest pain at that time was due to CPR and low suspicion for infarction, did not order any additional workup -last ECHO in Oct 2019 had EF 55-60% -last cardiac cath in Aug [address] Patel showed 20% stenosis in mid to distal LAD and 40% proximal stenosis in RCA -BNP 243 (down from 1416 in Oct 2019) #Hyperkalemia -today K is 5.3 (discharge on 06/03 was 5.8) -continued scheduled dialysis on Thursday 06/07 Dispo: Stable. Will plan to trend troponin. If downtrends then will discharge back to home with outpatient cardiology follow up as previously instructed. Addendum - Attending - Attending Attestation Date/Time: 06/07/2096 I personally evaluated the patient and discussed the management with Dr. Vicente and Adalberto yesterday at time of admission. I agree with the History, Examination, Assessment and Plan documented above with any addition or exceptions noted below. See separate note from yesterday.
--- NOTE | 2020-06-06 14:20 | PDOC.HHP ---
Hospitalist HPI - History of Present Illness Chest pain History of Present Illness: PCP: None HISTORY OF PRESENT ILLNESS 45 yo M with hx of HTN, DM, ESRD (dialysis MWF) presenting with sharp, left-sided chest pain for the past 24 hours. Pt states pain started yesterday after dialysis. He denies progression or improvement of pain in that time period. No SOB. No fever/chills. CHIEF COMPLAINT Patient presents for evaluation of chest pain, ongoing. HISTORIAN History provided by patient. LOCATION Symptoms are localized, most severe in the left lower chest. QUALITY Pain is sharp in nature, described as stabbing. SEVERITY Maximum severity of symptoms severe, Currently symptoms are severe. TIME COURSE Sudden onset of symptoms, There has been no change in the patient's symptoms over time. ASSOCIATED WITH No associated symptoms. EXACERBATED BY Patient's condition exacerbated by movement, Patient's condition exacerbated by palpation of chest. RELIEVED BY Patient's condition relieved by nothing. RISK FACTORS Coronary artery disease risk factors, include diabetes, include high c holesterol, include hypertension. Hospitalist Results - Labs Result Diagrams: 06/06/20 11:45 06/06/20 11:45 Lab results: WBC 3.2 thou/uL (4.8-10.8) L 06/06/20 11:45 Hgb 8.7 g/dL (14.0-18.0) L 06/06/20 11:45 Hct 25.9 % (42.0-52.0) L 06/06/20 11:45 MCV 101.0 fL (78.0-98.0) H 06/06/20 11:45 Plt Count 147 thou/uL (130-400) 06/06/20 11:45 Neutrophils % 51.6 % (42.0-75.0) 06/06/20 11:45 Sodium 138 mmol/L (136-145) 06/06/20 11:45 Potassium 5.3 mmol/L (3.5-5.1) H 06/06/20 11:45 Chloride 101 mmol/L (98-107) 06/06/20 11:45 Carbon Dioxide 26 mmol/L (22-29) 06/06/20 11:45 BUN 25 mg/dL (8.9-20.6) H 06/06/20 11:45 Creatinine 7.27 mg/dL (0.7-1.3) H 06/06/20 11:45 Glucose 137 mg/dL (70-105) H 06/06/20 11:45 Calcium 9.2 mg/dL (7.8-10.44) 06/06/20 11:45 Total Bilirubin 0.3 mg/dL (0.2-1.2) 06/06/20 11:45 AST 23 U/L (5-34) 06/06/20 11:45 ALT 69 U/L (8-55) H 06/06/20 11:45 Alkaline Phosphatase 91 U/L (40-110) 06/06/20 11:45 CK-MB (CK-2) 2.7 ng/mL (0-6.6) 06/06/20 11:45 Troponin I 0.124 ng/mL (< 0.028) H 06/06/20 11:45 B-Natriuretic Peptide 243.9 pg/mL (0-100) H 06/06/20 11:45 Serum Total Protein 6.8 g/dL (6.0-8.3) 06/06/20 11:45 Albumin 3.9 g/dL (3.5-5.0) 06/06/20 11:45
[2020-06-06 15:06] LABS: Troponin I 0.091 ng/mL (< 0.028)
[2020-06-06 15:27] VITALS: BP 186/87; TEMP 97.6
--- NOTE | 2020-06-06 15:31 | PDOC.BPN ---
- Brief Progress Note Date/Time: 06/06/20 1527 I personally evaluated the patient and discussed the management with Dr. Vicente and Dr Ramos. H&P is pending. I agree with the History, Examination, Assessment and Plan as discussed. Patient presented to the ER with concern about potassium. Also noted some chest pain. He has been compliant with HD. His potassium is normal. troponin is trending down, EKG shows no sign of ischemia. Exam demonstrates his CP is musculoskeletal with reproducible tenderness to palpation. Had inpt cardiac eval last week. Has Outpt cardiac follow up arranged. Will discharge, if able, for outpatient care.
--- NOTE | 2020-06-07 09:34 | SS ---
DATE OF ADMISSION: 06/06/2020 DATE OF DISCHARGE: 06/06/2020 CHIEF COMPLAINT: Chest pain. HISTORY OF PRESENT ILLNESS: This is a 45-year-old male with a past medical history of end-stage renal disease, type 2 diabetes, hypertension, who presented today after being discharged on 06/04 with chest pain. He states that he developed a dry cough, and with this cough, he had 10/10 chest pain that was sharp and nonradiating. He stated that he does have some mild chest pain when at rest and without his cough. Of note, he was here from 05/31 to 06/04 after cardiac arrest secondary to hyperkalemia and secondary to noncompliance with dialysis. On that admission, cardiology was consulted due to elevated troponins and nonspecific ST elevations on his EKG. Cardiology at that time did not see a need for any intervention and stated that his troponins were due to his CPR that was performed on his last admission and they had trended downwards. Today his troponin is 0.124, which is lower than what it was on his last admission. His 2nd troponin that came back today had down trended to 0.09. His EKG had no findings with ST changes today. PAST MEDICAL HISTORY: As above. PAST SURGICAL HISTORY: He had a craniotomy, left arm fistula, right 5th toe amputation. SOCIAL HISTORY: Former smoker. Smoked half a pack a day for 10 years. No alcohol or drug use. ADMISSION MEDICATIONS: He was given aspirin and nitroglycerin in the ED. REVIEW OF SYSTEMS: Significant only for chest pain. Denied fever/chills, rhinorrhea, headache, vision changes, blurry vision, scotomas palpitations, SOB, edema, abdominal pain, nausea, vomiting, diarrhea, constipation, extremity pain, skin rashes, anxiety, depression PHYSICAL EXAMINATION: General: NAD, appears well and nourished, Heart: RRR, No rubs, gallops or murmurs. Lungs: CTAB. Abdominal Exam: no tenderness to palpation, no rebound or guarding, bowel sounds noted, Neuro: moves all limbs, motor strength wnl all extremities, DTRs 2+. MSK: no edema, tenderness, rashes reproducible chest pain on ribs 4 through 6 on the left side. HOSPITAL COURSE: Hospital course was unremarkable. His troponins were trended and as downwards and with reassurance, pt was advised that due to labs, EKG, and reproducible nature of his pain that this did not warrant an overnight stay as he did not require follow up testing. DISCHARGE DIAGNOSES: Atypical chest pain secondary most likely to musculoskeletal secondary to recent chest cardiopulmonary resuscitation. DISCHARGE MEDICATIONS: 1. Keppra 50 mg p.o. t.i.d. 2. Aspirin 81 mg daily. 3. Lipitor 40 mg. 4. Coreg 3.125 mg. 5. Vitamin D 2000 units. 6. Phenytoin 50 mg p.o. t.i.d. 7. Ferric citrate 2 tabs t.i.d. 8. Lisinopril 20 mg. 9. Loperamide 2 mg. 10. Melatonin 3 mg. 11. Procardia 30 mg. 12. Renvela 2 tablets t.i.d. 13. Hydralazine 100 mg p.o. t.i.d. 14. EPO 75 mg subcu q.7 days. Zoloft 150 mg. 15. Ibuprofen 600 mg p.o. q.8 for 7 days. DISPOSITION: Stable. DISCHARGE INSTRUCTIONS: Location: Home. Diet: Heart healthy. Activity: As tolerated. Followup: Follow up in 7 days with [facility]. Job ID: [id number] MTDD
--- NOTE | 2020-06-07 09:50 | DIS ---
DATE OF ADMISSION: 06/06/2020 DATE OF DISCHARGE: 06/06/2020 RESIDENT: Asha Vicente DO ADMITTING ATTENDING: Brian Santiago MD DISCHARGE ATTENDING: Brian Santiago MD CONSULT: None. PROCEDURE: Chest x-ray on 06/06 showed no acute cardiopulmonary process. PRIMARY DIAGNOSIS: Atypical chest pain. SECONDARY DIAGNOSES: 1. End-stage renal disease, on hemodialysis Friday, Friday, and Friday. 2. Type 2 diabetes. 3. Hypertension. 4. Seizure disorder. 5. Cardiac arrest on 05/31. DISCHARGE MEDICATIONS: 1. Keppra 500 p.o. b.i.d. 2. Hydralazine 100 mg p.o. t.i.d. 3. Renvela two tabs p.o. t.i.d. 4. Zoloft 150 mg p.o. daily. 5. Phenytoin 50 mg p.o. t.i.d. 6. Nifedipine 30 mg p.o. daily. 7. Melatonin 3 mg p.o. 8. Loperamide 2 mg p.o. four times a day. 9. Lisinopril 20 mg p.o. daily. 10. Ferrous citrate two tabs p.o. t.i.d. 11. EPO 7500 units subcu. 12. Vitamin D 2000 units daily. 13. Coreg 3.125 mg p.o. b.i.d. 14. Lipitor 40 mg p.o. daily. 15. Aspirin 81 mg p.o. daily. DISCONTINUED MEDICATIONS: None. HISTORY OF PRESENT ILLNESS/HOSPITAL COURSE: This is a 45-year-old male, who presented two days after last discharge with chest pain. He stated that he developed a dry cough and started to have sharp chest pain with the cough, calling it a 10/10 on the pain scale and had some residual achy pain when resting. He admits that he had dialysis done yesterday and was concerned about his potassium levels. He also reported some diarrhea that started yesterday, although it was watery, it was still formed. No fever or blood. No nausea or vomiting. Of note, he was last here, admitted from 05/31 to 06/04 due to cardiac arrest secondary to hyperkalemia. During that hospitalization, Cardiology was consulted and at that time, they stated that no intervention was required. Today, his troponin was initially 0.124 and downtrended to 0.09. His EKG today had no ST changes or findings. His physical exam showed that his chest pain was reproducible on palpation and it was determined that the most likely cause of his chest pain today was musculoskeletal secondary to the CPR that he received less than a week ago. He was advised that he did not need to stay overnight and that with the consult of Dr. Shin, he was able to take ibuprofen or naproxen for his musculoskeletal pain and was able to be discharged today. He was advised that he should have close followup with the remote encoding center manager and his primary care physician at [facility]. Patient was agreeable to this plan. DISPOSITION: Stable. DISCHARGE INSTRUCTIONS: Location: Home. Diet: Heart-healthy. Activity: As tolerated. Followup: Follow up in seven days with [facility]. Job ID: [id number]
[2020-06-07 11:59] LABS: SARS-CoV-2 MS2 Positive; SARS-CoV-2 N Gene Negative; SARS-CoV-2 S Gene Negative; SARS-CoV-2 by NAA Not Detected (NotDetected); SARS-CoV-2 orf1ab Negative
== END 2020-06-06 17:00 | disposition home or self-care (01) | DRG 313 ==
LOC: ERS 11:16 → 2NO 15:06
PROVIDERS: ADMIT Family Medicine; ATTEND Family Medicine
DX: R07.89 Other chest pain (principal); N18.6 End stage renal disease; I12.0 Hypertensive chronic kidney disease with stage 5 chronic kidney disease or end stage renal disease; Z20.828 Contact with and (suspected) exposure to other viral communicable diseases; E87.5 Hyperkalemia; E11.22 Type 2 diabetes mellitus with diabetic chronic kidney disease; G40.909 Epilepsy, unspecified, not intractable, without status epilepticus; F41.9 Anxiety disorder, unspecified; F32.9 Major depressive disorder, single episode, unspecified; Z88.0 Allergy status to penicillin; Z99.2 Dependence on renal dialysis; Z79.82 Long term (current) use of aspirin; Z79.899 Other long term (current) drug therapy; Z87.891 Personal history of nicotine dependence
CPT/HCPCS: 36415; 71045; 80053; 82553; 83880; 84484; 85025; 87635; 93005; U0003

== ENCOUNTER 2020-07-25 13:51 | Inpatient (IN) | payer MEDICARE ==
[~2020-07-25 13:51] MED LIST changes: -Calcium Chloride 1 GM/10 ML Abboject SYRINGE ONE; -Dextrose 50% Abboject 50 ML SYRINGE ONE; -EPINEPHrine 1 MG/10 ML Abboject SYRINGE ONE; +Iopamidol-370 76% 500 ML 1 ML ONE; -Sodium Bicarb 50 MEQ/50 ML Abboject 8.4% SYRINGE ONE
[2020-07-25] MEDS ORDERED: Ondansetron PF 4 MG/2 ML Vial ONE ×4 (14:43→16:27)
[2020-07-25] MEDS ORDERED: Morphine 4 MG/ML VIAL ONE ×2 (14:51→16:44)
[2020-07-25 15:10] LABS: #Lymphocytes 1.4 thou/uL (1.20-3.40); #Monocytes 0.5 thou/uL (0.11-0.59); #Neutrophils 3.1 thou/uL (1.40-6.50); %Basophils 0.9 % (0.0-1.0); %Eosinophils 0.6 % (0.0-10.0); %Lymphocytes 27.7 % (21.0-51.0); %Neutrophils 60.7 % (42.0-75.0); Hemoglobin 11.9 g/dL (14.0-18.0); Mean Corpuscular HGB CONC 33.9 g/dL (32.0-36.0); Mean Corpuscular Hemoglobin 35.1 pg (27.0-31.0); Platelet Count 214 thou/uL (130-400); RBC Distribution Width 13.6 % (11.5-14.5); White Blood Cell (WBC) Count 5.1 thou/uL (4.8-10.8)
[2020-07-25 15:34] LABS: ALT (SGPT) 11 U/L (8-55); AST (SGOT) 15 U/L (5-34); Alkaline Phosphatase 118 U/L (40-110); Anion Gap 27 mmol/L (10-20); BUN (Urea Nitrogen) 38 mg/dL (8.9-20.6); Bilirubin, Total 0.6 mg/dL (0.2-1.2); CK (CPK) 84 U/L (30-200); Calc. Creatinine Clearance 0 mL/min (70-130); Calcium 10.8 mg/dL (7.8-10.44); Carbon Dioxide 24 mmol/L (22-29); Chloride 94 mmol/L (98-107); Estimated GFR-MDRD 5; Globulin 3.9 g/dL (2.4-3.5); Glucose 144 mg/dL (70-105); Lipase 119 U/L (8-78); Potassium 4.8 mmol/L (3.5-5.1); Protein, Total 8.9 g/dL (6.0-8.3); Sodium 140 mmol/L (136-145)
--- NOTE | 2020-07-25 15:48 | CT ---
CT Abdomen Pelvis W Con: 07/25/2020 3:20 PM CLINICAL INFORMATION: Nausea vomiting and diarrhea. End-stage renal disease. COMPARISON: 10/31/2017 TECHNIQUE: Multiple contiguous axial images were obtained and a CT of the abdomen and pelvis with IV contrast. C oronal and sagittal reformats were performed. FINDINGS: Lower Chest: Left lower lobe calcified granuloma. Calcifications in the coronary arteries. Abdomen: Liver: within normal limits. Bile Ducts: Normal caliber. Gallbladder: No calcified gallstones. Normal caliber wall. Pancreas: within normal limits. Spleen: Calcified granulomas in the spleen. Adrenals: within normal limits. Kidneys: There is cortical thinning of both kidneys. Hypodensities in the kidneys measuring up to 1.8 cm in size likely represent cysts. Pelvis: Reproductive Organs: No pelvic masses. Ureters: within normal limits. Bladder: within normal limits. Peritoneum: No ascites or free air, no fluid collection. Bowel: There are dilated loops of proximal small bowel measuring up to 5.0 cm in size. The colon is d ecompressed. The distal small bowel loops are decompressed and there is likely a transition point in the right lower quadrant of the abdomen. No definite pneumatosis or mesenteric/portal venous air. Mesentery and Retroperitoneum: No enlarged mesenteric or retroperitoneal lymph nodes. Vessels: IVC filter. Atherosclerotic calcifications. Abdominal Wall: within normal limits. Bones: Mild degenerative changes in the spine. IMPRESSION: 1. Findings are consistent with small bowel obstruction. There is likely a transition point in the ri ght lower quadrant of the abdomen. 2. Atrophic kidneys with bilateral renal cysts.
--- NOTE | 2020-07-25 16:36 | PDOC.FPRHP ---
- History of Present Illness Chief Complaint: Abdominal Pain History of Present Illness: Patient is 45 yo M with PMHx of ESRD who presents with N/V and abdominal pain. Patient reports that the abdominal pain started approximately 1 week ago. He describes the pain as pressure mostly in the LLQ. He reports that his bowels have been [id number] the past week. He reports that he is typically regular with BM, solid stools BID. Nausea and vomiting have been worsening over the last week. Patient was actively vomiting on ED admission. Patient went to Dialysis yesterday ED Course: NG tube placed, pain control with morphine, antinausea with Zofran - Allergies/Adverse Reactions Allergies Allergy/AdvReac Type Severity Reaction Status Date / Time Penicillins Allergy Intermediate Hives Verified 05/19/20 04:38 - Home Medications Medication Instructions Recorded Confirmed Type Phenytoin Sodium Extended 50 mg PO TID 04/20/17 06/01/20 History Aspirin [Ecotrin Low Strength] 81 mg PO DAILY 11/03/19 06/01/20 History Atorvastatin Calcium 40 mg PO DAILY 11/03/19 06/01/20 History Carvedilol [Coreg] 3.125 mg PO BID 11/03/19 06/01/20 History Cholecalciferol (Vitamin D3) 2,000 unit PO DAILY 11/03/19 06/01/20 History [Vitamin D3] levETIRAcetam [Keppra] 500 mg PO BID 11/03/19 06/01/20 History Ferric Citrate [Auryxia] 2 tab PO TID 05/19/20 06/01/20 History Lisinopril 20 mg PO DAILY 05/19/20 06/01/20 History Loperamide HCl [Loperamide] 2 mg PO QID 05/19/20 06/01/20 History Melatonin 3 mg PO HS PRN tab 05/19/20 06/01/20 Rx NIFEdipine [Procardia XL] 30 mg PO DAILY 30 Days #30 tab 05/19/20 06/01/20 Rx Sevelamer Carbonate [Renvela] 2 tablet PO TID 05/19/20 06/01/20 History hydrALAZINE [Apresoline] 100 mg PO TID 30 Days #120 tab 05/19/20 06/01/20 Rx Epoetin Murali-Epbx [Retacrit] 7,500 unit SC Q7D 30 Days #8 vial 06/04/20 Rx Sertraline HCl [Zoloft] 150 mg PO DAILY 30 Days #30 tab 06/04/20 Rx Ibuprofen 600 mg PO Q8H #21 capsule 06/06/20 Rx - History Per Chart Review PMHx: ESRD on HD, DM, HTN, Seizure disorder, AVM rupture, Cardiac arrest with ROSC on 05/31 PSHx: crainiotomy, L arm fistula, R 5th toe amputation FHx: noncontributory Social: former smoker, smoked 1/2 ppd, quit 10 years ago, no alcohol or drug use - Review of Systems General: denies: fever/chills, weight/appetite/sleep changes ENT: denies: nasal congestion, rhinorrhea Respiratory: denies: cough, congestion Cardiovascular: denies: chest pain, palpitation Gastrointestinal: reports: nausea, vomiting, diarrhea, abdominal pain. denies: constipation, GI bleeding Genitourinary: denies: incontinence, dysuria Skin: denies: rashes, lesions Musculoskeletal: denies: pain, tenderness Neurological: denies: numbness, syncope Psychological: denies: anxiety, depression - Vital signs BP: 106/70, Pulse: 75, Resp: 17, Temp: 97.6 (Oral), O2 sat: 100 on (Room Air), Time: 07/25/2020 17:27 Wt 79.4 kg - Physical Exam Constitutional: awake, alert and oriented, well developed -Constitutional: In mild distress 2/2 pain HEENT: grossly normal vision, grossly normal hearing -HEENT: R side scar from craniotomy Neck: supple, FROM Heart: RRR, normal S1/S2, no murmurs/rubs/gallops Lungs: CTAB, no respiratory distress, good air movement, no rales/rhonchi -Abdomen: Mild distension, soft, guarding, rebound tenderness Musculoskeletal: normal structure, ROM grossly normal Neurological: no focal deficit, CN II-XII intact Heme/Lymphatic: no unusual bruising or bleeding, no purpura FMR H&P: Results - Labs Result Diagrams: 07/25/20 14:50 07/25/20 14:50 Lab results: WBC 5.1 thou/uL (4.8-10.8) 07/25/20 14:50 Hgb 11.9 g/dL (14.0-18.0) L 07/25/20 14:50 Hct 35.1 % (42.0-52.0) L 07/25/20 14:50 MCV 103.0 fL (78.0-98.0) H 07/25/20 14:50 Plt Count 214 thou/uL (130-400) 07/25/20 14:50 Neutrophils % 60.7 % (42.0-75.0) 07/25/20 14:50 Sodium 140 mmol/L (136-145) 07/25/20 14:50 Potassium 4.8 mmol/L (3.5-5.1) 07/25/20 14:50 Chloride 94 mmol/L (98-107) L 07/25/20 14:50 Carbon Dioxide 24 mmol/L (22-29) 07/25/20 14:50 BUN 38 mg/dL (8.9-20.6) H 07/25/20 14:50 Creatinine 11.19 mg/dL (0.7-1.3) H 07/25/20 14:50 Glucose 144 mg/dL (70-105) H 07/25/20 14:50 Calcium 10.8 mg/dL (7.8-10.44) H 07/25/20 14:50 Total Bilirubin 0.6 mg/dL (0.2-1.2) 07/25/20 14:50 AST 15 U/L (5-34) 07/25/20 14:50 ALT 11 U/L (8-55) 07/25/20 14:50 Alkaline Phosphatase 118 U/L (40-110) H 07/25/20 14:50 Creatine Kinase 84 U/L (30-200) 07/25/20 14:50 Serum Total Protein 8.9 g/dL (6.0-8.3) H 07/25/20 14:50 Albumin 5.0 g/dL (3.5-5.0) 07/25/20 14:50 Lipase 119 U/L (8-78) H 07/25/20 14:50 FMR H&P: A/P - Plan Small Bowel obstruction - CT A/P shows up to 5 cm dilation with transition point in the RLQ - NG tube placed, NPO - Management per Surgery, Dr. Garrison - Pain control with Morphine, Zofran for N/V ESRD - Consulted Dr. Shin-dialysis provider - Dialysis MWF, management per Dr. Shin T2DM - SSI - Accuchecks ACHS Elevated troponin - Likely 2/2 ESRD, hx of elevated trops - WIll trend X1 if stable or decreasing, will stop Anion Gap Metabolic acidosis - AG of 22, will monitor with AM labs Macrocytic anemia - MCV 103 Hgb 11.9 - Likely 2/2 CKD, will continue to monitor Diet: NPO DVT: Hold DVT PPX until after surgery or per surgery recs GI ppx: Hold for now Code: Full Dispo: Admit to tele, LOS > 2 d FMR H&P: Upper Level - Pertinent history Patient is a 45 yo male with hx of ESRD who presents with complaint of nausea, vomiting, and diarrhea that started around 0600 yesterday. Says he was eating breakfast around 6AM when had sudden onset of severe sharp abdominal pain that has progressively worsened. His initial abdominal pain started around 4 days ago and was more achy in description. His last solid/formed bowel movement was 7 days ago, since then he has had only watery bowl movements. He had dialysis on 07/24/20, this is managed by Dr. Shin. He has had multiple negative COVID tests recently. He was found to have a small bowel obstruction on CT abdomen in the ED. Dr. Easton, General Surgery, was consulted from the ED. - Pertinent findings HEENT: Normocephalic, atraumatic. Appears chronically ill. EOMI. Dry mucosa. Heart: RRR, no murmurs. Lungs: CTAB. Abdomen: Soft, mildly distended. Bowel sounds hypoactive. TTP with rebound in RLQ. No guarding. Extremities: Moves all 4 extremities. Neuro: A&O x 3. Nonfocal. - Plan Date/Time: 07/25/20 [id number] IAnabell, , PGY-2, have evaluated this patient and agree with findings/plan as outlined by media relations intern resident. Pertinent changes/additions are listed here: Small Bowel Obstruction -CT abdomen: There are dilated loops of proximal small bowel measuring up to 5.0 cm in size. The colon is decompressed. The distal small bowel loops are decompressed and there is likely a transition point in the right lower quadrant of the abdomen. -Exam with tenderness and rebound in RLQ -General Surgery, Dr. Easton-consulted from ED, appreciate recs -strict NPO -place NG tube -monitor vitals, I/Os -morphine for pain control -Zofran for n/v -WBC 5.1, Lactic acid 1.9, CRP pending -IV LR @ 75 ml/hr Elevated Troponin -trop 0.312, likely due to demand ischemia -will trend Anion Gap Metabolic Acidosis -AG of 22 on admission (Na 140, Cl 94, Bicarb 24, Albumin 5) ESRD on HD -will consult patients employment coordinator Dr. Shin, appreciate recs -typically receives M/W/F dialysis -admission Cr 11.19, BUN 38 Macrocytic Anemia -Hgb 11.9, MCV 103 -likely due to chronic kidney disease -is supposed to be taking Recrit but patient cannot afford so is not taking See media relations intern note above for chronic conditions including: Chronic pain disorder, HTN, chronic diarrhea, CHF, IDDM. Diet: Strict NPO Lines: Peripheral IV x 1, NG tube in place VTE: SCDs, plan for heparin after surgical consult recs Code status: FULL Dispo: Stable, admit to inpatient on telemetry unit. Anticipate LOS >48 hours.
[2020-07-25 16:37] LABS: CKMB 2.3 ng/mL (0-6.6)
[2020-07-25] MEDS ORDERED: HumaLOG 300 UNITS/3 ML VIAL SC PRN ×2 (17:24)
[2020-07-25] MEDS ORDERED: Dextrose 50% Abboject 50 ML SYRINGE SLOW IVP PRN (17:24)
[2020-07-25] MEDS ORDERED: Dextrose 5% in Water 1,000 ML IV PRN (17:24)
--- NOTE | 2020-07-25 17:39 | RAD ---
KUB: 07/25/20 HISTORY: NG tube placement. COMPARISON: Prior CT of the abdomen and pelvis dated 07/25/20. FINDINGS: Prominent dilated loops of small bowel are again seen. Gastric catheter projects in the region of the gastric fundus. Lung bases are clear. No acute osseous abnormality is evident. IMPRESSION: NG tube as above. POS: BH
[2020-07-25] MEDS ORDERED: Morphine 4 MG/ML VIAL SLOW IVP PRN (18:22)
[2020-07-25 20:14] LABS: Troponin I 0.245 ng/mL (< 0.028)
[2020-07-25] MEDS ORDERED: Lactated Ringer's 1,000 ML IV SCH (20:51)
[2020-07-25] MEDS ORDERED: Ondansetron PF 4 MG/2 ML Vial IVP PRN (20:51)
[2020-07-25] MEDS ORDERED: Acetaminophen 650 MG Suppository PR PRN (20:51)
[2020-07-25] MEDS ORDERED: Bisacodyl 10 MG SUPP PR PRN (20:51)
--- NOTE | 2020-07-25 21:08 | RAD ---
Abdomen one view HISTORY: Nasogastric tube reposition. COMPARISON: Earlier exam on the same day. FINDINGS: Nasogastric tube remains leftward deflected over the left upper quadrant at the expected lo cation of the gastric fundus. Unchanged from the previous study. Gas dilated loops of small bowel throughout the remainder of the abdomen are also unchanged.
--- NOTE | 2020-07-25 21:43 | CON ---
DATE OF CONSULTATION: REASON FOR CONSULTATION: Small bowel obstruction. HISTORY OF PRESENT ILLNESS: Mr. Ayala is a 45-year-old man with a 1-week history of nausea, vomiting, and abdominal pain getting worse over the past two days. He states that he has been having bowel movements up until this morning, but these have been liquid in nature. He has been throwing up for the past week and has been having crampy abdominal pain, but this got worse yesterday and then much worse today so he came to the emergency room, where he was found to have a high-grade small bowel obstruction. He states that the pain is about the same as when he came in, but the nurse states that after placement of the NG tube, he became much more comfortable and fell asleep and indeed I had to wake him up when I came into the room to see him. While he was asleep, he pulled his NG tube out and this had to be replaced. There was some bilious drainage in the tube and about 500 mL of bilious fluid in the canister. The patient denies any fevers or chills and states that he was passing gas up until yesterday. He is unsure whether he has passed any today. He denies any abdominal surgeries, but on examination he has laparoscopic incisions and history of renal failure and when questioned, he does state that he had a peritoneal dialysis catheter in place, which has been removed. He is unsure why the peritoneal dialysis catheter was removed and whether there was any infection. On review of his chart, it appears that this was placed in 2016, but that he had a seizure and a severe head injury and had to undergo a craniectomy and multiple neurosurgical procedures related to his subdural hematoma and then due to osteomyelitis of a skull flap, and he became unable to care for his peritoneal dialysis catheter and it was removed at that time. He had two catheters placed, because the first one he pulled out during a seizure less than a week after this placed. Other than that, I am unable to find any evidence of past abdominal surgeries. The patient is a remarkably poor historian and is unable to give me much information. Most of the past medical and surgical history are obtained by chart review. PAST MEDICAL AND SURGICAL HISTORY: End-stage renal failure, currently on hemodialysis, previously on peritoneal dialysis; poorly controlled diabetes; hypertension; poorly controlled seizure disorder with history of peritoneal dialysis catheter displacement during a seizure and also of a severe traumatic brain injury with subdural hernia and herniation requiring emergency craniectomy after seizing; history of skull flap osteomyelitis requiring multiple surgeries; history of thrombosed left Lanie AV fistula and currently functional left upper arm cephalic AV fistula; history of PEG tube and tracheostomy related to his severe head injury; right fifth toe amputation. ALLERGIES: PENICILLIN CAUSES RASH. OUTPATIENT MEDICATIONS: Include: 1. Phenytoin. 2. Aspirin. 3. Atorvastatin. 4. Carvedilol. 5. Vitamin D3. 6. Keppra. 7. Ferric citrate. 8. Lisinopril. 9. Loperamide. 10. Melatonin. 11. Nifedipine. 12. Renvela. 13. Hydralazine. 14. Epogen. 15. Zoloft. 16. Ibuprofen. FAMILY HISTORY: Noncontributory. SOCIAL HISTORY: The patient is a former smoker. Denies alcohol or drug use. REVIEW OF SYSTEMS: Ten system review of systems is negative except per HPI. The patient denies any nausea currently, but is still having intermittent crampy abdominal pain. PHYSICAL EXAMINATION: VITAL SIGNS: Afebrile at 97.6, heart rate 75, blood pressure 106/70, and 100% saturated on room air. GENERAL: Reveals a chronically ill-appearing man, in moderate distress when awake, but falling asleep when not being examined. He is not flushed or toxic in appearance. He is not jaundiced or icteric. HEENT: Unremarkable except for healed scars from previous right craniectomy and reconstruction. NECK: Supple without lymphadenopathy or thyroid nodules. HEART: Regular in its rate and rhythm without murmurs, rubs, or gallops. LUNGS: Clear to auscultation bilaterally. ABDOMEN: Distended and diffusely tender without rigidity, rebound, or guarding. He has no palpable masses or hernias. He has healed laparoscopic incisions. Bowel sounds are very minimal. EXTREMITIES: Warm and well perfused with healed surgical incisions. He has a left upper arm cephalic AV fistula, which has an excellent thrill and is well dilated and arterialized. NEUROLOGIC: No focal deficit, but quite drowsy, which may be related to receiving morphine in the emergency room. PSYCHIATRIC: Alert and conversant, but a very vague historian. LABORATORY DATA: White count is normal at 5.1, hematocrit 35, platelets 214. BUN and creatinine of 38 and 11.1. Electrolytes are unremarkable. IMAGING DATA: CT images are reviewed and I agree with the written report. He has a high-grade small bowel obstruction with a transition point in the right lower quadrant and decompressed distal ileum and colon. No free air, free fluid, or pneumatosis. ASSESSMENT: High-grade small bowel obstruction, which has been progressive by history over the past week. The diagnosis was apparently not suspected. He was actually treated with loperamide, which likely worsened the situation. He does not have an acute abdomen and has had some clinical improvement since placement of the NG tube, so I favor brief trial of NG decompression. If he does not improve or if his condition worsens, then surgery will be undertaken. If on the other hand, he has clinical improvement with bowel rest and NG decompression, then this will be continued for 24 to 48 hours following which a small bowel follow-through will be ordered. I have ordered a KUB to make sure that his NG tube is in proper position as it looks like it may need to be advanced a little based on the numbers. Presumably, his obstruction is due to adhesions from his previous peritoneal dialysis catheter. There is no suggestion of a mass or other malignant cause and no hernias on examination or CT. Unfortunately, due to the longstanding nature of his progressive obstruction, I think his chance of resolving with conservative management is somewhat low and he is relatively likely to need operative intervention. Job ID: [id number] [facility]ITALB[facility]
[2020-07-26] MEDS ORDERED: Morphine 4 MG/ML VIAL SLOW IVP PRN (00:26)
[2020-07-26] MEDS ORDERED: cefOXitin 2 GM in Sodium Chloride 0.9% 100 ML IVPB SCH ×2 (01:00→06:00)
[2020-07-26] MEDS ORDERED: EPINEPHrine 1 MG/ML AMP ONE (01:08)
[2020-07-26] MEDS ORDERED: Bupivacaine PF 0.5% 30 ML VIAL ONE (01:08)
--- NOTE | 2020-07-26 01:09 | PDOC.GSPN ---
Surgery Progress Note: Subj - Subjective Narrative: Saw pt shortly after transfer to [place] [address] but he was asleep and I did not wake him. Called by nurse recently due to worsening abdominal pain. NG in appropriate position by KUB and has immediate return of flush. Minimal bilious output since transfer to [place] [address]. No flatus, pt rates pain 10/10. Diffusely tender, distended. Discussed continued observation vs surgery for obstruction. Recommend surgery due to failure to improve and patient wishes to proceed. PARQ held. OR notified. Surgery Progress Note: Obj - Vital signs Vital signs: Vital Signs - Most Recent Temp Pulse Resp BP Pulse Ox 97.5 F L 93 18 135/92 H 100 07/25/20 23:54 07/25/20 23:54 07/25/20 23:54 07/25/20 23:54 07/25/20 23:54 Surgery Progress Note: Results - Labs Result Diagrams: 07/25/20 14:50 07/25/20 14:50 Lab results: Laboratory Results - last 12 hr 07/25/20 07/25/20 07/25/20 14:50 14:50 14:50 WBC 5.1 RBC 3.40 L Hgb 11.9 L Hct 35.1 L MCV 103.0 H MCH 35.1 H MCHC 33.9 RDW 13.6 Plt Count 214 MPV 7.0 L Neutrophils % 60.7 Lymphocytes % 27.7 Monocytes % 10.0 Eosinophils % 0.6 Basophils % 0.9 Neutrophils # 3.1 Lymphocytes # 1.4 Monocytes # 0.5 Eosinophils # 0.0 Basophils # 0.0 Sodium 140 Potassium 4.8 Chloride 94 L Carbon Dioxide 24 Anion Gap 27 H BUN 38 H Creatinine 11.19 H Estimated GFR (MDRD) 5 Glucose 144 H POC Glucose Lactic Acid Calcium 10.8 H Total Bilirubin 0.6 AST 15 ALT 11 Alkaline Phosphatase 118 H Creatine Kinase 84 CK-MB (CK-2) 2.3 Troponin I 0.312 H* C-Reactive Protein Serum Total Protein 8.9 H Albumin 5.0 Globulin 3.9 H Albumin/Globulin Ratio 1.3 Lipase 119 H 07/25/20 07/25/20 07/25/20 14:50 16:09 19:32 WBC RBC Hgb Hct MCV MCH MCHC RDW Plt Count MPV Neutrophils % Lymphocytes % Monocytes % Eosinophils % Basophils % Neutrophils # Lymphocytes # Monocytes # Eosinophils # Basophils # Sodium Potassium Chloride Carbon Dioxide Anion Gap BUN Creatinine Estimated GFR (MDRD) Glucose POC Glucose Lactic Acid 1.9 Calcium Total Bilirubin AST ALT Alkaline Phosphatase Creatine Kinase CK-MB (CK-2) Troponin I 0.245 H C-Reactive Protein 3.87 H Serum Total Protein Albumin Globulin Albumin/Globulin Ratio Lipase 07/25/20 21:23 WBC RBC Hgb Hct MCV MCH MCHC RDW Plt Count MPV Neutrophils % Lymphocytes % Monocytes % Eosinophils % Basophils % Neutrophils # Lymphocytes # Monocytes # Eosinophils # Basophils # Sodium Potassium Chloride Carbon Dioxide Anion Gap BUN Creatinine Estimated GFR (MDRD) Glucose POC Glucose 164 H Lactic Acid Calcium Total Bilirubin AST ALT Alkaline Phosphatase Creatine Kinase CK-MB (CK-2) Troponin I C-Reactive Protein Serum Total Protein Albumin Globulin Albumin/Globulin Ratio Lipase
[2020-07-26] MEDS ORDERED: Norepinephrine 4 MG/4 ML VIAL ONE (01:54)
[2020-07-26] MEDS ORDERED: Fentanyl 250 MCG/5 ML VIAL ONE (01:54)
[2020-07-26] MEDS ORDERED: Phenylephrine 10 MG/ML VIAL ONE (01:54)
[2020-07-26] MEDS ORDERED: cefOXitin Sodium/Dextrose 2 GM/50 ML BAG ONE (02:16)
[2020-07-26] MEDS ORDERED: Sodium Chloride 0.9% 40 ML ONE ×2 (03:15→04:18)
[2020-07-26] MEDS ORDERED: Propofol 1,000 MG/100 ML VIAL IV ONE (03:40)
[2020-07-26] MEDS ORDERED: Sodium Bicarb 50 MEQ/50 ML Abboject 8.4% SYRINGE ONE ×2 (04:32→05:15)
[2020-07-26] MEDS ORDERED: Rocuronium Bromide 50 MG/5 ML VIAL ONE (04:44)
[2020-07-26] MEDS ORDERED: cefOXitin Sodium 1 GM in Sodium Chloride 0.9% 100 ML IVPB SCH (05:00)
[2020-07-26 05:11] LABS: ALT (SGPT) 14 U/L (8-55); AST (SGOT) 39 U/L (5-34); Albumin 4.2 g/dL (3.5-5.0); Alkaline Phosphatase 91 U/L (40-110); Anion Gap 26 mmol/L (10-20); BUN (Urea Nitrogen) 49 mg/dL (8.9-20.6); Bilirubin, Total 0.9 mg/dL (0.2-1.2); Calc. Creatinine Clearance 8 mL/min (70-130); Calcium 10.2 mg/dL (7.8-10.44); Carbon Dioxide 20 mmol/L (22-29); Chloride 99 mmol/L (98-107); Estimated GFR-MDRD 4; Globulin 3.4 g/dL (2.4-3.5); Glucose 149 mg/dL (70-105); Potassium 5.7 mmol/L (3.5-5.1); Protein, Total 7.6 g/dL (6.0-8.3); Sodium 139 mmol/L (136-145)
[2020-07-26] MEDS ORDERED: Propofol BOLUS 1,000 MG/100 ML VIAL IV PRN (05:15)
[2020-07-26] MEDS ORDERED: DISCONTINUE PREVIOUS NARCOTIC PAIN MEDICATIONS AND BENZODIAZEPINES FS SCH (05:15)
[2020-07-26] MEDS ORDERED: Sodium Chloride 0.9% 1,000 ML IV SCH (05:15)
[2020-07-26] MEDS ORDERED: Fentanyl BOLUS 250 ML IVPB PRN (05:15)
[2020-07-26] MEDS ORDERED: Lorazepam 2 MG/ML VIAL SLOW IVP PRN (05:15)
[2020-07-26] MEDS ORDERED: Propofol 1,000 MG/100 ML VIAL IV PRN (05:15)
[2020-07-26] MEDS ORDERED: Ventilator Sedation Protocol 1 EACH FS SCH (05:15)
[2020-07-26] MEDS ORDERED: Morphine 2 MG/ML VIAL SLOW IVP PRN (05:15)
[2020-07-26] MEDS ORDERED: Promethazine HCl 25 MG/ML VIAL SLOW IVP PRN (05:29)
[2020-07-26] MEDS ORDERED: Ondansetron HCl/PF 4 MG/2 ML Vial IVP PRN (05:29)
[2020-07-26] MEDS ORDERED: Promethazine HCl 25 MG/ML VIAL IM PRN (05:29)
[2020-07-26 05:47] LABS: Actual Bicarbonate (HCO3a) 20.1 mEq/L (22-28); Base Excess (BEa) -5.1 mEq/L (-2.0 to +3.0); CO2 Tension 37.9 mmHg (35.0-45.0); Calcium, Ionized (arterial) 1.08 mmol/L (1.12-1.30); Carboxyhemoglobin (COHb) 0.5 gm% (0.0-3.0); Hemoglobin (Hb) 12.4 g/dL (14.0-18.0); O2 Tension (PaO2), arterial 265.9 mmHg (80.0-100.0); Potassium - ABG Lab 3.87 mmol/L (3.70-5.30); pH, Arterial 7.34 (7.35-7.45)
[2020-07-26 05:51] LABS: ALV-art Gradient 114.525 mmHg (0-20); Puncture Site Arterial Line
--- NOTE | 2020-07-26 05:54 | PDOC.OP ---
Operative Note - Operative Note Operative Note: PROCEDURE: Exploratory laparotomy with lysis of adhesions with placement of ABThera, left femoral central venous catheter placement with ultrasound guidance. SURGEON: Manny Garrison M.D. DATE: 07/26/2020 PREOPERATIVE DIAGNOSIS: Small bowel obstruction POSTOPERATIVE DIAGNOSIS: Small bowel obstruction with ischemia of the obstructed bowel HISTORY: Patient with a 1 week history of progressive nausea vomiting and abdominal pain found to have high-grade small bowel obstruction on CT. No peritonitis on exam but no improvement in abdominal pain with NG decompression so recommendation was made to proceed to the operating room for lysis of adhesions. FINDINGS: Multiple adhesions throughout the abdomen with 1 tight adhesive band across the distal ileum causing a transition point and stricture. Bowel ischemia due to obstruction much improved after relief of obstruction but with splotchy areas of discoloration indeterminate for full-thickness necrosis. PROCEDURE IN DETAIL: After informed consent was obtained and appropriate preoperative antibiotics were administered the patient was taken to the operating room he was placed in supine position and general endotracheal anesthesia was administered he was prepped and draped in the standard sterile fashion and the decision was made to place a hand port as the abdomen was still very distended even after administration of paralytics. A 6 cm periumbilical incision was made and dissection carried down to the fascia which was incised in the midline. The preperitoneal fat was sharply divided and the peritoneum identified grasped and drawn up into the wound. This was incised and immediately dusky, ischemicappearing bowel was identified. The decision was made to convert to laparotomy. The incision was extended superiorly and inferiorly along the midline to allow adequate exposure and the ischemic bowel examined. A tight band in the right lower quadrant was identified and divided following which the distal obstructed bowel was able to be brought up out of the abdominal cavity. This band was found to be the transition point and the bowel appeared to have a stricture at this location consistent with chronic compression of this area. As soon as the band was divided bowel contents began to pass into the distal nondistended and normal-appearing bowel and the distal ischemic appearing bowel began to improve in appearance. The proximal bowel still appeared ischemic and there were multiple adhesions tethering the bowel in the abdominal cavity. Since the patient's only previous surgery was laparoscopic peritoneal dialysis catheter placement, it was felt that these adhesions are most likely due to an episode of peritonitis. All of the adhesions appeared chronic. These were carefully divided allowing the entire small intestine to be drawn up into the incision. As the adhesions were taken down the bowel continued to improve in appearance. There were areas of hemorrhage into both the bowel wall and the mesentery and patchy areas of darker discoloration but no definite full-thickness ischemia. The bowel was mobilized back to the ligament of Treitz and the distal duodenum appeared completely normal in appearance. The stomach was palpated and the NG confirmed to be in good position. Bowel contents were then milked retrograde into the stomach and out through the NG tube taking care not to over distend the stomach. Over 2-1/2 L of fluid was removed through the NG tube with decompression of the distended small bowel and further improvement in the appearance of the small bowel. There was one area in the mesentery of the proximal jejunum where there appeared to have been hemorrhage and even some necrosis of the mesentery but the bowel supplied by this mesentery appeared to be viable and there was no active bleeding. The abdominal cavity was initially malodorous but there was no perforation or purulence, and although there were patchy areas of questionable viability there was no definite full-thickness necrosis. The decision was made to manage the patient with an open abdomen with plans to return to the operating room in 24 to 48 hours for a second look and resection of the strictured segments and which ever areas of the bowel had not recovered. The colon was palpated and was found to be filling with gas and bowel contents. No obvious masses were felt. The gallbladder was distended but no obvious stones were palpated. The terminal ileum had multiple adhesions in the pelvis which were taken down through the avascular plane completely mobilizing this to the level of the ileocecal valve. There were dense adhesions between the appendix, the cecum, and the terminal ileum as well which were also taken down. Omental adhesions to the anterior abdominal wall and the cecum were mobilized. Adhesions between the omentum and the anterior abdominal wall were mobilized and some adhesions to the sigmoid colon divided but the dense adhesions between the omentum and the descending colon were left in place. The abdomen was irrigated with 3 L of warm saline and hemostasis was verified. An ABThera dressing was obtained and the perforated drape placed into the paracolic gutters laterally, deep into the pelvis inferiorly, and up over the liver superiorly. Foam was placed in the subcutaneous space and an occlusive dressing placed over this. The suction was attached and negative pressure applied to the wound. Patient had required pressors during the case so central line placement was necessary. The right neck and chest were prepped and draped sterilely and the patent compressible right internal jugular vein accessed under direct ultrasound guidance with excellent flow. However, the wire would not advance beyond the level of the clavicle. It was felt that patient likely had a stenosis related to his previous dialysis catheter. Therefore the decision was made to place a femoral line. The vein on the right appeared to be stenotic but the vein on the left appeared to be normal and compressible. The left groin was prepped and draped and the femoral vein accessed under direct ultrasound guidance with excellent flow of dark venous nonpulsatile blood. A wire threaded easily and was confirmed to be in the patent compressible vein. The tract was dilated and a triple-lumen catheter advanced to 18 cm and secured to the skin. All 3 ports easily aspirated and easily flushed. The patient was taken to recovery in critical condition on the ventilator for further resuscitation. There were no complications. There were no specimens. Estimated blood loss was minimal.
--- NOTE | 2020-07-26 06:03 | PDOC.GSPN ---
Surgery Progress Note: Subj - Subjective Narrative: Patient was noted intraoperatively to have peaked T waves and received calcium and bicarbonate with some improvement. After placement of central line repeat BMP was sent and potassium was elevated to 5.7 which was felt likely to be due to reperfusion of the intestine. He received additional bicarbonate in the recovery room due to persistent hypotension and several boluses of IV fluid due to severe dehydration with rise in hematocrit from his baseline of 25, to 35 preoperatively. With these maneuvers blood pressure did begin to improve. However he is still requiring pressors. Dr. Shin has been informed of his elevated potassium and potential for this to rise further due to reperfusion. He plans urgent dialysis. Surgery Progress Note: Obj - Vital signs Vital signs: Vital Signs - Most Recent Temp Pulse Resp BP Pulse Ox 97.5 F L 93 18 135/92 H 100 07/25/20 23:54 07/25/20 23:54 07/25/20 23:54 07/25/20 23:54 07/25/20 23:54 Surgery Progress Note: Results - Labs Result Diagrams: 07/25/20 14:50 07/26/20 04:37 Lab results: Laboratory Results - last 12 hr 07/25/20 07/25/20 07/26/20 19:32 21:23 04:37 Specimen Type Puncture Site Bicarbonate Actual ABG pH ABG pCO2 ABG pO2 ABG O2 Sat (Measured) ABG O2 Content ABG Base Excess ABG Hematocrit ABG Hemoglobin ABG Oxyhemoglobin ABG Carboxyhemoglobin ABG Methemoglobin ABG Deoxyhemoglobin A-a O2 Gradient Ionized Calcium Mode of Support Mechanical Rate Inspired O2 Tidal Volume Pressure Support PEEP or CPAP Sodium 139 Potassium 5.7 H Chloride 99 Carbon Dioxide 20 L Anion Gap 26 H BUN 49 H Creatinine 12.42 H Estimated GFR (MDRD) 4 Glucose 149 H POC Glucose 164 H Calcium 10.2 Total Bilirubin 0.9 AST 39 H ALT 14 Alkaline Phosphatase 91 Troponin I 0.245 H Serum Total Protein 7.6 Albumin 4.2 Globulin 3.4 Albumin/Globulin Ratio 1.2 07/26/20 05:40 Specimen Type ARTERIAL Puncture Site Arterial Line Bicarbonate Actual 20.1 L ABG pH 7.34 L ABG pCO2 37.9 ABG pO2 265.9 H ABG O2 Sat (Measured) 99.4 H ABG O2 Content 17.8 L ABG Base Excess -5.1 L ABG Hematocrit 36.0 L ABG Hemoglobin 12.4 L ABG Oxyhemoglobin 98.6 H ABG Carboxyhemoglobin 0.5 ABG Methemoglobin 0.30 ABG Deoxyhemoglobin 0.6 A-a O2 Gradient 114.525 H Ionized Calcium 1.08 L Mode of Support SIMV Mechanical Rate 12 Inspired O2 60 Tidal Volume 500 Pressure Support 10 PEEP or CPAP 5.0 Sodium 141 Potassium 3.87 Chloride 107 H Carbon Dioxide Anion Gap BUN Creatinine Estimated GFR (MDRD) Glucose POC Glucose Calcium Total Bilirubin AST ALT Alkaline Phosphatase Troponin I Serum Total Protein Albumin Globulin Albumin/Globulin Ratio
[2020-07-26] MEDS ORDERED: cefOXitin Sodium/Dextrose,Iso 1 GM in Premix Bag 1 BAG IVPB SCH (06:15)
--- NOTE | 2020-07-26 06:56 | PDOC.FM ---
- Objective MAR Reviewed: Yes Vital Signs & Weight: Vital Signs (12 hours) Temp Pulse Resp BP Pulse Ox 07/25/20 23:54 97.5 F L 93 18 135/92 H 100 07/25/20 20:20 97.3 F L 75 18 135/88 96 07/25/20 20:00 96 Weight Weight 78.3 kg Result Diagrams: 07/25/20 14:50 07/26/20 04:37 Dx/Plan - Plan Plan: Small Bowel obstruction - CT A/P shows up to 5 cm dilation with transition point in the RLQ - NG tube placed, NPO - Management per Surgery, Dr. Garrison - Pain control with Morphine, Zofran for N/V - s/p PROCEDURE: Exploratory laparotomy with lysis of adhesions with placement of ABThera, left femoral central venous catheter placement with ultrasound guidance. ESRD - Consulted Dr. Shin-dialysis provider - Dialysis MWF, management per Dr. Shin T2DM - SSI - Accuchecks ACHS Elevated troponin - Likely 2/2 ESRD, hx of elevated trops - WIll trend X1 if stable or decreasing, will stop Anion Gap Metabolic acidosis - AG of 22, will monitor with AM labs Macrocytic anemia - MCV 103 Hgb 11.9 - Likely 2/2 CKD, will continue to monitor Diet: NPO DVT: Hold DVT PPX until after surgery or per surgery recs GI ppx: Hold for now Code: Full Dispo: Admit to tele, LOS > 2 d
[2020-07-26] MEDS: Sodium Chloride 0.9% 1,000 ML IV SCH ×5 (07:00→21:26)
[2020-07-26] MEDS: fentaNYL Citrate/PF 2,000 MCG in Sodium Chloride 0.9% 60 ML IV SCH (07:03)
--- NOTE | 2020-07-26 07:49 | PDOC.FM ---
- Subjective Subjective: Mr. Ayala is seen this morning in the CCU. He is currently intubated and sedated. Overnight he developed progressively worsening abdominal pain and was taken for operative intervention by Dr. Garrison. During surgery he developed peaked T waves, hyperkalemia and hypotension. A femoral central line was placed and several IV fluid boluses given. He is still requiring pressors this morning with BP currently in 80s/60s. Dr. Shin is planning for dialysis this morning. - Objective MAR Reviewed: Yes Vital Signs & Weight: Vital Signs (12 hours) Temp Pulse Resp BP Pulse Ox 07/25/20 23:54 97.5 F L 93 18 135/92 H 100 07/25/20 20:20 97.3 F L 75 18 135/88 96 07/25/20 20:00 96 Weight Weight 78.3 kg Result Diagrams: 07/26/20 07:39 07/26/20 07:39 Phys Exam - Physical Examination appears chronically ill, ventilated & sedated dry MMs Neck: supple ventilated breath sounds throughout Cardiovascular: RRR, no significant murmur Gastrointestinal: soft, no distention minimal bowel sounds Musculoskeletal: pulses present sedated Skin: no rash Dx/Plan (1) Small bowel obstruction due to adhesions Code(s): K56.50 - INTESTNL ADHESIONS, UNSP TO PARTIAL VERSUS COMPLETE OBST Status: Acute (2) Demand ischemia of myocardium Code(s): I24.8 - OTHER FORMS OF ACUTE ISCHEMIC HEART DISEASE Status: Acute (3) History of cardiac arrest Code(s): Z86.74 - PERSONAL HISTORY OF SUDDEN CARDIAC ARREST Status: Chronic (4) Hyperkalemia Code(s): E87.5 - HYPERKALEMIA Status: Acute (5) Seizure disorder Code(s): G40.909 - EPILEPSY, UNSP, NOT INTRACTABLE, WITHOUT STATUS EPILEPTICUS Status: Chronic (6) ESRD (end stage renal disease) Code(s): N18.6 - END STAGE RENAL DISEASE Status: Chronic - Plan Plan: Small Bowel Obstruction -CT abdomen: There are dilated loops of proximal small bowel measuring up to 5.0 cm in size. The colon is decompressed. The distal small bowel loops are decomp ressed and there is likely a transition point in the right lower quadrant of the abdomen. -Admission Exam with tenderness and rebound in RLQ -General Surgery, Dr. Easton-consulted from ED & transitioned care to Dr. Garrison overnight, appreciate recs -s/p exploratory laparotomy on 07/[address] Garrison -during operation developed EKG changes with persistent hypotension, left femoral central line placed and currently on max Levophed, vasopressin running -strict NPO -NG tube in place -monitor vitals, I/Os -morphine for pain control -Zofran for n/v -WBC 5.1, Lactic acid 1.9, CRP 3.87 -IV LR @ 75 ml/hr Elevated Troponin -trop 0.312, likely due to demand ischemia -trend to 0.245 Anion Gap Metabolic Acidosis -AG of 22 on admission (Na 140, Cl 94, Bicarb 24, Albumin 5) ESRD on HD -will consult patients information technology officer Dr. Shin, appreciate recs -typically receives M/W/F dialysis -developed hyperkalemia intraop, to arrange for urgent dialysis this morning -admission Cr 11.19, BUN 38> trend up to Cr 12.2 this morning Macrocytic Anemia -Hgb 11.9, MCV 103 -likely due to chronic kidney disease -is supposed to be taking Retacrit but patient cannot afford so is not taking Diet: Strict NPO Lines: abdominal wound vac in place, [address], Rectal Tube in place, Left Femoral Triple Lumen, Right Forearm 20g IV and Left AV Fistula (dialysis patient) and right radial A-Line VTE: SCDs Code status: FULL Dispo: Guarded, admitted to inpatient in ICU. Anticipate discharge in >48 hours. Addendum - Attending - Attending Attestation Date/Time: 07/26/20 1052 I personally evaluated the patient and discussed the management with Dr. Ramos. I agree with the History, Examination, Assessment and Plan documented above with any addition or exceptions noted below.
--- NOTE | 2020-07-26 08:02 | RAD ---
EXAM: CHEST ONE VIEW HISTORY: Attempted internal jugular vein central venous catheter placement. COMPARISON: 06/06/2020 FINDINGS: Endotracheal tube is noted in place with the tip overlying the T3-4 level and above the level of the joselito. Nasogastric tube is noted in place which courses into the left upper quadrant. The tip is not imaged. Cardiac silhouette and pulmonary vasculature are within normal limits. The lungs are juan r. No pneumothorax or pleural effusion is identified. There is a fracture involving the anterior right second rib. This fracture was not seen on study of 06/06/2020. IMPRESSION: 1. Fracture involving the right anterior second rib. 2. Endotracheal tube and nasogastric tubes in place. 3. Lungs are clear without evidence of a pneumothorax or pleural effusion.
[2020-07-26 08:07] LABS: Hemoglobin 13.2 g/dL (14.0-18.0); Mean Corpuscular HGB CONC 32.5 g/dL (32.0-36.0); Mean Corpuscular Hemoglobin 34.7 pg (27.0-31.0); Platelet Count 251 thou/uL (130-400); RBC Distribution Width 13.8 % (11.5-14.5); Red Blood Cell (RBC) Count 3.81 mill/uL (4.70-6.10); White Blood Cell (WBC) Count 6.5 thou/uL (4.8-10.8)
[2020-07-26 08:08] LABS: Glucose 111 mg/dL (70-105)
[2020-07-26 08:26] LABS: Band 27 % (5-11); Lymphocytes 13 % (21-51); MDiff Complete? YES; Metamyelocyte 1 % (0-0); Monocytes 10 % (0-10); Neutrophil 47 % (42-75); Platelet Morphology Comment Appears Adequate; Polychromasia SLIGHT = 2-3 cells (100X) (0-2/hpf)
[2020-07-26] MEDS ORDERED: Calcium Chloride 13.6 MEQ in Sodium Chloride 0.9% 100 ML IVPB SCH ×2 (09:00→17:00)
[2020-07-26] MEDS ORDERED: ePHEDrine 50 MG/ML VIAL ONE (09:21)
[2020-07-26] MEDS ORDERED: Lidocaine 1% PF 5 ML VIAL ONE (09:21)
[2020-07-26] MEDS ORDERED: Calcium Chloride 1 GM/10 ML Abboject SYRINGE ONE (09:21)
[2020-07-26] MEDS ORDERED: Succinylcholine 200 MG/10 ml SYRINGE FS ONE (09:21)
[2020-07-26] MEDS ORDERED: Rocuronium Bromide 10 MG/ML (10ML VIAL) ONE (09:21)
[2020-07-26] MEDS ORDERED: Hydrocortisone Sod Succ/PF 100 mg/2 ml Vial IVP SCH (09:45)
[2020-07-26] MEDS ORDERED: Albumin 5% 500 ML ONE (09:47)
[2020-07-26] MEDS ORDERED: Calcium Chloride 1 GM/10 ML Abboject SYRINGE IVP SCH ×2 (10:00→16:45)
--- NOTE | 2020-07-26 10:02 | CON ---
DATE OF CONSULTATION: 07/26/2020 HISTORY OF PRESENT ILLNESS: Mr. Ayala is a 45-year-old male with ESRD from diabetic nephropathy, currently on maintenance hemodialysis. He was admitted for small-bowel obstruction. He underwent an emergent exploratory laparotomy with subsequent lysis of adhesions and with placement of ABThera, left femoral central line, and now transferred to ICU for further management. We are currently following this patient for management of his ESRD. During the said operative/postop recovery, he developed cardiac arrhythmias and had peaked P waves. The concern is he may have had hyperkalemia. This was treated with calcium gluconate. Potassium has improved to a most recent value of 5.7. He is currently undergoing hemodialysis. Our plan is to do a 4-hour hemodialysis. Minimal fluid removal or fluid removal only as tolerated. He is currently on two pressor support. Prior to dialysis, we will be priming this patient with 250 mL of normal saline. REVIEW OF SYSTEMS: Not obtainable since the patient is intubated, sedated. Based on the history, he did have a history of nausea and vomiting as well as abdominal pain. MEDICATIONS: 1. Status post calcium chloride. 2. Cefoxitin 2 g IV q.24 hours. 3. Fentanyl drip as directed. 4. On norepinephrine drip. 5. Status post LR infusion. 6. Morphine sulfate 2 mg IV q.2 p.r.n. 7. Propofol drip. 8. Vasopressin drip. PAST MEDICAL HISTORY: ESRD from diabetic nephropathy, type 2 diabetes mellitus, status post seizure disorder, status post subdural hematoma, chronic anemia, hyperlipidemia, hypertension. PAST SURGICAL HISTORY: Recently status post exploratory laparotomy with lysis of adhesions, status post PD catheter with subsequent removal, status post AV fistula placement, status post right fifth toe amputation, status post cuffed hemodialysis catheter placement, status post craniotomy. SOCIAL HISTORY: The patient is , lives with his . He lives in [place]. Currently, not smoking. No alcohol. Status post blood transfusion. 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 Education, high school. No IV drug abuse. ALLERGIES: UNKNOWN. TRAUMA: Status post fall with cranial injury and subdural hematoma. IMMUNIZATION: Up to date. HOSPITALIZATIONS: Please see past medical history. FAMILY HISTORY: No family history of ESRD. PHYSICAL EXAMINATION: VITAL SIGNS: Blood pressure is noted at 104/70, heart rate 123. GENERAL: The patient is sedated and intubated, on ventilator support. SKIN: Adequate turgor. HEENT: He has pinkish conjunctivae. Anicteric sclerae. NECK: No neck mass. No carotid bruits. No JVD. CHEST: No deformities. LUNGS: Clear breath sounds. No wheezing. No crackles. HEART: Tachycardic. No murmur. No gallops. No rubs. ABDOMEN: Globular, soft, nontender. Positive for surgical dressing. EXTREMITIES: No edema. No deformities. LABORATORY DATA: Laboratories of July 26, 2020: White count 6.5, hemoglobin 13.2. Sodium 139, potassium 5.7, chloride 99, carbon dioxide 20, BUN 49, creatinine 12.4, calcium 10.2, AST 39, ALT 14, albumin 4.2. ASSESSMENT AND PLAN: 1. Status post small bowel obstruction - the patient is status post exploratory laparotomy with lysis of adhesions. Supportive care. Surgery is following. 2. Hyperkalemia - emergent hemodialysis to be done today. Potassium noted at 5.7, this may have been higher earlier. We will use a 2.0 potassium bath. Fluid removal only as tolerated. We will prime the patient prior to the initiation of dialysis with 250 mL of normal saline. 3. Overall prognosis remains guarded. Job ID: [id number]
[2020-07-26 10:06] LABS: Actual Bicarbonate (HCO3a) 18.4 mEq/L (22-28); Base Excess (BEa) -8.8 mEq/L (-2.0 to +3.0); CO2 Tension 44.7 mmHg (35.0-45.0); Calcium, Ionized (arterial) 1.03 mmol/L (1.12-1.30); Carboxyhemoglobin (COHb) 0.5 gm% (0.0-3.0); O2 Tension (PaO2), arterial 168.4 mmHg (80.0-100.0); Potassium - ABG Lab 3.78 mmol/L (3.70-5.30)
[2020-07-26] MEDS: Calcium Chloride 1 GM/10 ML Abboject SYRINGE ONE (10:17)
[2020-07-26 10:42] LABS: ALV-art Gradient 60.925 mmHg (0-20); Puncture Site Arterial Line; pH, Arterial 7.23 (7.35-7.45)
[2020-07-26] MEDS ORDERED: Sodium Bicarb 50 MEQ/50 ML Abboject 8.4% SYRINGE IVP SCH (10:45)
[2020-07-26 10:59] LABS: SARS-CoV-2 MS2 Positive; SARS-CoV-2 N Gene Negative; SARS-CoV-2 S Gene Negative; SARS-CoV-2 by NAA Not Detected (NotDetected); SARS-CoV-2 orf1ab Negative
[2020-07-26] MEDS ORDERED: Norepinephrine 16 MG in Dextrose 5% in Water 234 ML IVPB SCH (11:15)
[2020-07-26] MEDS: Vasopressin 20 UNIT, Admixture Fee 1 EACH in Sodium Chloride 0.9% 50 ML IV SCH ×2 (11:46→19:26)
[2020-07-26 12:09] LABS: Glucose 103 mg/dL (70-105)
[2020-07-26 13:22] LABS: Lactic Acid 1.7 mmol/L (0.5-2.2)
--- NOTE | 2020-07-26 14:45 | PRG ---
DATE OF SERVICE: 07/26/2020 SUBJECTIVE: Mr. Ayala is a 45-year-old man with history of hemodialysis-dependent chronic renal failure. The patient underwent an emergent exploratory laparotomy overnight for acute small-bowel obstruction secondary to adhesions. The abdomen was temporarily closed using wound VAC as the operating surgeon suspected some ischemic changes of bowel. The patient is hypotensive, requiring vasopressor and inotropic support at maximum doses. Currently, the patient is on full mechanical ventilatory support. He is on norepinephrine at 40 mcg/minute as well as vasopressin at 0.4 units/minute. He moves all extremities and follows commands. OBJECTIVE: VITAL SIGNS: This morning included blood pressure 96/68, pulse 117, respiratory rate 14, maximum temperature in last 24 hours is 97.5 degrees Fahrenheit, oxygen saturation currently is 100% on FiO2 of 50%. HEENT: Pupils are equally round and reactive to light bilaterally. NECK: He has no jugular venous distention noted. HEART: Reveals regular rate with sinus tachycardia. LUNGS: Reveal scattered rhonchi. Breathing regular and nonlabored. ABDOMEN: Soft and nondistended. Wound VAC is in place, returns serosanguineous fluid. EXTREMITIES: Reveal thready palpable pulses. NEUROLOGIC: Reveals no focal deficits present. LABORATORY FINDINGS: Today include a CBC with 6500 white blood cells, hemoglobin and hematocrit are 13.2 and 40.8 respectively, platelet count is 251,000. Preoperatively, the hemoglobin and hematocrit were noted at 11.9 and 35.1 respectively. The patient did not receive any blood transfusion. Arterial blood gas; pH is 7.23, pCO2 is 45, pO2 is 168, base excess is -8.8. Ionized calcium 1.03. Metabolic profile; sodium is 139, potassium 5.7, chloride is 99, bicarb is 20, BUN 49, creatinine is 12.42, glucose is 111. Lactic acid is 3.4. AST and ALT 39 and 14 respectively. Serum cortisol level is 14.70. Hemodynamic parameters include a cardiac index of 3.8, cardiac output 7.2, SVRI 1253, SVI 32, CVP is 3, SVV 16%. IMPRESSION: 1. Postoperative day #1, status post exploratory laparotomy with temporary abdominal closure. 2. Acute distributive shock secondary to acute septic shock with concomitant acute adrenal insufficiency. 3. Lactic acidosis. 4. Acute respiratory failure. 5. Acute hypocalcemia. 6. Acute hyperkalemia. 7. Acute on chronic renal failure. PLAN: 1. Optimize fluid resuscitation and wean vasopressor support as indicated. 2. The patient will be started on hydrocortisone to treat the acute adrenal insufficiency. 3. We will correct abnormal electrolytes. 4. The patient will undergo hemodialysis this morning as hemodynamics permit. 5. Continue with full mechanical ventilatory support until the patient is hemodynamically stable. 6. The patient will be returned to the operating room tomorrow for second-look laparotomy with possible partial bowel resection and abdominal closure. Above findings and plan will be discussed with the patient's family once contact is established. Total critical care time is 45 minutes. Job ID: [id number]
[2020-07-26] MEDS: Hydrocortisone Sod Succ/PF 100 mg/2 ml Vial IVP SCH ×2 (16:17→21:26)
[2020-07-26 16:42] LABS: Actual Bicarbonate (HCO3a) 23.8 mEq/L (22-28); Base Excess (BEa) 0.7 mEq/L (-2.0 to +3.0); CO2 Tension 32.8 mmHg (35.0-45.0); Calcium, Ionized (arterial) 1.06 mmol/L (1.12-1.30); Carboxyhemoglobin (COHb) 0.9 gm% (0.0-3.0); Hemoglobin (Hb) 11.3 g/dL (14.0-18.0); O2 Tension (PaO2), arterial 162.6 mmHg (80.0-100.0); Potassium - ABG Lab 3.38 mmol/L (3.70-5.30); pH, Arterial 7.48 (7.35-7.45)
[2020-07-26 16:43] LABS: Puncture Site Arterial Line
[2020-07-26 18:01] LABS: Glucose 149 mg/dL (70-105)
[2020-07-26 21:28] LABS: Glucose 133 mg/dL (70-105)
[2020-07-27] MEDS: fentaNYL Citrate/PF 2,000 MCG in Sodium Chloride 0.9% 60 ML IV SCH (02:11)
[2020-07-27] MEDS: Hydrocortisone Sod Succ/PF 100 mg/2 ml Vial IVP SCH ×4 (03:18→20:29)
[2020-07-27] MEDS: Sodium Chloride 0.9% 1,000 ML IV SCH ×4 (03:20→20:30)
[2020-07-27 05:22] LABS: ALT (SGPT) 10 U/L (8-55); AST (SGOT) 32 U/L (5-34); Albumin 2.5 g/dL (3.5-5.0); Alkaline Phosphatase 44 U/L (40-110); Anion Gap 16 mmol/L (10-20); BUN (Urea Nitrogen) 35 mg/dL (8.9-20.6); Bilirubin, Total 0.6 mg/dL (0.2-1.2); Calc. Creatinine Clearance 13 mL/min (70-130); Calcium 8.1 mg/dL (7.8-10.44); Carbon Dioxide 25 mmol/L (22-29); Chloride 105 mmol/L (98-107); Estimated GFR-MDRD 7; Globulin 2.2 g/dL (2.4-3.5); Glucose 143 mg/dL (70-105); Potassium 4.6 mmol/L (3.5-5.1); Protein, Total 4.7 g/dL (6.0-8.3); Sodium 141 mmol/L (136-145)
[2020-07-27 05:24] LABS: Band 44 % (5-11); Hemoglobin 9.7 g/dL (14.0-18.0); Lymphocytes 14 % (21-51); MDiff Complete? YES; Macrocytosis SLIGHT = 6-15 cells (100X) (0-5/hpf); Mean Corpuscular Hemoglobin 34.3 pg (27.0-31.0); Mean Platelet Volume 7.5 fL (7.4-10.4); Monocytes 7 % (0-10); Neutrophil 35 % (42-75); Platelet Count 121 thou/uL (130-400); Red Blood Cell (RBC) Count 2.81 mill/uL (4.70-6.10); White Blood Cell (WBC) Count 10.9 thou/uL (4.8-10.8)
[2020-07-27] MEDS: cefOXitin Sodium/Dextrose,Iso 2 GM in Premix Bag 1 BAG IVPB SCH (05:46)
[2020-07-27] MEDS ORDERED: cefOXitin 2 GM in Sodium Chloride 0.9% 100 ML IVPB SCH (06:00)
[2020-07-27] MEDS: Vasopressin 20 UNIT, Admixture Fee 1 EACH in Sodium Chloride 0.9% 50 ML IV SCH (06:53)
--- NOTE | 2020-07-27 07:05 | PDOC.FM ---
- Subjective Subjective: Patient currently intubated and sedated in CCU. He is post-op day 1 from ex-lap with Dr. Garrison for small bowel obstruction. Surgical team is planning a second ex-lap today. Patient's blood pressures have been stable overnight, able to wean down Levophed drip to 5 mg/min and Vasopressin to 0.04 units/min. He spontaneou sly opens eyes this morning and will attempt to mouth responses. He is aware he is in hospital and knows his name. Will squeeze hands on command. - Objective MAR Reviewed: Yes Vital Signs & Weight: Vital Signs (12 hours) Temp Pulse Resp BP Pulse Ox 07/27/20 06:00 16 07/27/20 05:00 99.4 F 07/27/20 04:00 14 07/27/20 02:01 87 89/66 L 07/27/20 02:00 14 07/27/20 00:00 98.7 F 15 07/26/20 22:00 14 07/26/20 21:41 100 76/60 L 07/26/20 20:00 98.9 F 18 100 Weight Admit Weight 78.018 kg Weight 78.3 kg Most Recent Monitor Data Heart Rate from ECG 76 NIBP 95/63 NIBP BP-Mean 73 Respiration from ECG 16 SpO2 100 I&O: 07/26/20 07/27/20 07/28/20 06:59 06:59 06:59 Intake Total 6756.5 Output Total 2185 Balance 4571.5 Result Diagrams: 07/27/20 04:20 07/27/20 04:20 Phys Exam - Physical Examination intubated, opens eyes spontaneously. appears chronically ill HEENT: moist MMs Neck: supple scattered rhonchi, ventilated breath sounds throughout Cardiovascular: RRR, no significant murmur Gastrointestinal: soft, no distention abdominal wound vac in place Musculoskeletal: no edema, pulses present GCS 10 ([id number]), will attempt to mouth responses but intubated Skin: no rash Dx/Plan (1) Small bowel obstruction due to adhesions Code(s): K56.50 - INTESTNL ADHESIONS, UNSP TO PARTIAL VERSUS COMPLETE OBST Status: Acute (2) Demand ischemia of myocardium Code(s): I24.8 - OTHER FORMS OF ACUTE ISCHEMIC HEART DISEASE Status: Acute (3) History of cardiac arrest Code(s): Z86.74 - PERSONAL HISTORY OF SUDDEN CARDIAC ARREST Status: Chronic (4) Hyperkalemia Code(s): E87.5 - HYPERKALEMIA Status: Acute (5) Seizure disorder Code(s): G40.909 - EPILEPSY, UNSP, NOT INTRACTABLE, WITHOUT STATUS EPILEPTICUS Status: Chronic (6) ESRD (end stage renal disease) Code(s): N18.6 - END STAGE RENAL DISEASE Status: Chronic - Plan Plan: Small Bowel Obstruction -CT abdomen: There are dilated loops of proximal small bowel measuring up to 5.0 cm in size. The colon is decompressed. The distal small bowel loops are decompressed and there is likely a transition point in the right lower quadrant of the abdomen. -Admission Exam with tenderness and rebound in RLQ -General Surgery, Dr. Easton-consulted from ED & transitioned care to Dr. Garrison overnight, appreciate recs -s/p exploratory laparotomy on 07/[address] Garrison -during operation developed EKG changes with persistent hypotension, left femoral central line placed and currently on Levophed @ 5 mg/min & Vasopressin @ 0.04 units/min -abdominal wound vac in place with 900 mL output in last 24 hours -plan for 2nd exploratory laparotomy with possible bowel resection today with Dr. 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, appreciate recs -typically receives M/W/F dialysis -developed hyperkalemia intraop, urgent dialysis on 07/26 -admission Cr 11.19, BUN 38> trend up to max Cr 12.4 on 07/26> Cr 8.0, BUN 35 this morning Macrocytic Anemia -Hgb 11.9, MCV 103 -likely due to chronic kidney disease -is supposed to be taking Retacrit but patient cannot afford so is not taking Diet: Strict NPO Lines: abdominal wound vac in place, [address], Rectal Tube in place, Left Femoral Triple Lumen, Right Forearm 20g IV and Left AV Fistula (dialysis patient) and right radial A-Line, endotracheal tube in place VTE: SCDs Code status: FULL Dispo: Guarded, admitted to inpatient in ICU. Anticipate discharge in >48 hours. Addendum - Attending - Attending Attestation Date/Time: 07/27/20 1792 I personally evaluated the patient and discussed the management with Dr. Ramos. I agree with the History, Examination, Assessment and Plan documented above with any addition or exceptions noted below. Back to OR today per General Surgery. Wean pressors as tolerated.
[2020-07-27 08:05] LABS: Actual Bicarbonate (HCO3a) 21.8 mEq/L (22-28); Base Excess (BEa) -2.5 mEq/L (-2.0 to +3.0); CO2 Tension 35.4 mmHg (35.0-45.0); Calcium, Ionized (arterial) 1.07 mmol/L (1.12-1.30); Carboxyhemoglobin (COHb) 0.2 gm% (0.0-3.0); Hemoglobin (Hb) 9.7 g/dL (14.0-18.0); O2 Tension (PaO2), arterial 144.4 mmHg (80.0-100.0); Potassium - ABG Lab 4.64 mmol/L (3.70-5.30); pH, Arterial 7.41 (7.35-7.45)
[2020-07-27 08:07] LABS: Puncture Site Arterial Line
[2020-07-27] MEDS ORDERED: Midazolam HCl 5 mg/5 ml Vial ONE (09:19)
[2020-07-27] MEDS ORDERED: Rocuronium Bromide 50 MG/5 ML VIAL ONE (09:20)
[2020-07-27] MEDS ORDERED: Rocuronium Bromide 10 MG/ML (10ML VIAL) ONE (09:22)
--- NOTE | 2020-07-27 09:48 | PRG ---
DATE OF SERVICE: 07/27/2020 SUBJECTIVE: Mr. Ayala is a 45-year-old male with ESRD, was admitted for small-bowel obstruction. He underwent an exploratory laparotomy with lysis of adhesions. He is doing better. He is awake today. He also underwent hemodialysis yesterday. No acute events noted last night. OBJECTIVE: VITAL SIGNS: Blood pressure 100/70, heart rate 78, respiratory rate 17. GENERAL: The patient is awake, intubated, on vent support. SKIN: Adequate turgor. HEENT: He has slightly pale conjunctivae. Anicteric sclerae. No neck mass. No carotid bruits. No JVD. CHEST: No deformities. LUNGS: Clear breath sounds. No wheezing. No crackles. HEART: Normal sinus rhythm. No murmurs. No gallops. No rubs. ABDOMEN: Globular, soft, nontender. No masses. EXTREMITIES: No edema. No deformities. MEDICATIONS: July 27, 2020, reviewed. LABORATORY DATA: July 27, 2020; white count 10.9, hemoglobin 9.7. Sodium 141, potassium 4.6, chloride 105, carbon dioxide 25, BUN 35, creatinine 8.02, AST 32, ALT 10, and albumin 2.5. ASSESSMENT AND PLAN: 1. Small-bowel obstruction - the patient is status post exploratory laparotomy with lysis of adhesions. Stable. Surgery is following. 2. End-stage renal disease. The patient is stable. He tolerated hemodialysis yesterday. There is no indication for any emergent hemodialysis today. We will continue current Friday, Friday, and Friday dialysis regimen with this patient. Overall, prognosis remains guarded. Job ID: [id number] [facility]
[2020-07-27] MEDS ORDERED: Calcium Chloride 1 GM/10 ML Abboject SYRINGE IVP SCH (11:45)
--- NOTE | 2020-07-27 12:04 | RAD ---
EXAM: Single view of the abdomen HISTORY: Dobbhoff tube placement COMPARISON: 07/25/2020 FINDINGS: Single view of the abdomen shows a nonspecific, nonobstructive bowel gas pattern. There is an inferior vena cava filter. An NG tube is seen in the stomach. A Dobbhoff tube is seen crossing the midline with its tip likely in the region of the proximal jejunum. Midline skin tisha are seen. No suspicious calcifications are seen. The bones are unremarkable. IMPRESSION: Dobbhoff tube located in the proximal jejunum
[2020-07-27 12:20] LABS: Glucose 123 mg/dL (70-105)
--- NOTE | 2020-07-27 12:28 | OP ---
DATE OF PROCEDURE: 07/27/2020 PREOPERATIVE DIAGNOSIS: Status post exploratory laparotomy with adhesiolysis for acute small-bowel obstruction. POSTOPERATIVE DIAGNOSIS: Status post exploratory laparotomy with adhesiolysis for acute small-bowel obstruction. PROCEDURES PERFORMED: 1. Second-look exploratory laparotomy. 2. Appendectomy. 3. Abdominal washout and closure. ANESTHESIA: General endotracheal. ESTIMATED BLOOD LOSS: 10 mL. FLUIDS GIVEN: 500 mL crystalloids. COUNTS: Sponge and instrument counts were verified as correct x2. COMPLICATIONS: None apparent at the time of operation. INDICATIONS FOR OPERATION: A 45-year-old man, underwent exploratory laparotomy and adhesiolysis for acute small bowel obstruction. Surgery was two days ago. At surgery, an adhesive band was encountered and majority of the bowel was markedly distended, thick-walled, and hyperemic. Decision was made therefore to close the belly temporarily with wound VAC, to return for second-look. Findings today are consistent with resolving but persistent bowel wall edema. The strictured area of the small bowel where the adhesive band was previously excised was noted to be patent. The bowel proximal to the stricture was markedly distended and thick walled. I decided therefore not to resect this as I am concerned that the primary anastomosis here will be fraught with anastomotic leak. No other pathology was encountered. 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 Following general anesthesia, previous Mancuso catheter was placed to bedside drain. Nasogastric tube was placed to wall suction. The external wound VAC dressing was removed and abdomen was sterilely prepped and draped in usual fashion. Internal wound VAC dressing was then removed. Bookwalter retractor was put in place to gain exposure. The abdomen was explored in all 4 quadrants. No gross purulence encountered. Small bowel was run from the ligament of Treitz down to terminal ileum and there was no evidence of ischemic bowel necrosis or perforation. Previous strictured segment of small bowel was again noted and I was able to move the enteric contents past this stricture, so there was adequate patency. Proximal to the stricture, the bowel was markedly thick walled and edematous. I was able to move the enteric contents through this. I decided not to resect this to perform a primary anastomosis, which will be at risk for anastomotic leak. The large intestine was inspected from the cecum through the ascending, transverse, descending colon, and rectum. No other pathology noted. Previous nasogastric tube was palpated within the gastric lumen. There was a short, thickened appendix, given the previous inflammation in the abdomen in a patient who had a previous history of peritoneal dialysis, I decided to remove the appendix. To achieve this, the mesoappendix was serially divided down to the base and ligated with free tie of 2-0 silk. Appendix itself was divided between clamps at the appendicocecal junction. The appendix was passed off the operative field for formal transmission to Pathology. Appendiceal stump was ligated with a stick tie of 3-0 silk and then imbricated with a pursestring suture of 3-0 silk. The abdominal cavity was then copiously irrigated with saline, noting good hemostasis in place. All sponges and instruments were reported as correct x2. At this juncture, a nasojejunal tube was placed by Anesthesia, the tip of which was palpated by myself within the gastric lumen. I manipulated tip of this catheter into proximal small bowel without resistance. I placed a sheet of Seprafilm in the deep pelvis prior to returning small bowel to normal anatomic location. Two other pieces of Seprafilm were used to cover the small bowel and omentum was drawn over this. Fascia was approximated in the midline using a running stitch of #1 single stranded PDS. Subcutaneous tissues were approximated using interrupted sutures of 2-0 Vicryl. Skin incision was closed using tisha. Sterile dressings were applied. The patient tolerated this operation without any apparent complication and was returned to recovery room in satisfactory condition. Job ID: [id number]
[2020-07-27] MEDS: Pantoprazole 40 MG VIAL IVP SCH (13:53)
[2020-07-27] MEDS ORDERED: diphenhydrAMINE 25 MG CAP PO PRN (15:55)
[2020-07-27] MEDS ORDERED: Naloxone HCl 0.4 mg/ml Vial IV PRN (15:55)
[2020-07-27] MEDS ORDERED: HYDROmorphone 10 mg/100 ml CADD IVPB PRN (15:55)
[2020-07-27] MEDS ORDERED: Promethazine HCl 25 MG/ML VIAL IM PRN (15:55)
[2020-07-27] MEDS ORDERED: diphenhydrAMINE 50 MG/ML VIAL IVP PRN (15:55)
[2020-07-27] MEDS ORDERED: diphenhydrAMINE 50 MG/ML VIAL IM PRN (15:55)
[2020-07-27] MEDS ORDERED: Communication Order-Pharmacy FS SCH (16:00)
--- NOTE | 2020-07-27 16:13 | PRG ---
DATE OF SERVICE: 07/27/2020 SUBJECTIVE: Mr. Ayala is a 45-year-old man who was admitted following an exploratory laparotomy for acute small-bowel obstruction secondary to intra-abdominal adhesions. The abdomen was temporarily closed using wound VAC. The patient is on mechanical ventilator support. He has returned to the operating room today for second-look exploratory laparotomy. He is sedated on mechanical ventilator support. He moves all extremities and follows commands. Urinary output is adequate for this patient's age and weight. He is on norepinephrine at 12 mcg/minute as well as vasopressin at 0.04 units/minute. OBJECTIVE: VITAL SIGNS: This morning include blood pressure of 109/62, pulse 91, respiratory rate is 16, maximum temperature in last 24 hours is 99.4 degrees Fahrenheit, oxygen saturation is 100% on FiO2 of 40% on mechanical ventilator support. HEENT: Pupils are equal, round, and reactive to light bilaterally. NECK: He has no jugular venous distention noted. HEART: Reveals regular rate and rhythm. LUNGS: Clear to auscultation bilaterally. Breathing, regular and nonlabored. ABDOMEN: Soft and nondistended with wound VAC in place this morning. EXTREMITIES: Reveal 2+ radial and pedal pulses bilaterally. No ankle edema is present. NEUROLOGIC: Reveals no focal deficits present. LABORATORY FINDINGS: Today include a CBC with 10,900 white blood cells, hemoglobin and hematocrit 9.7 and 30.2 respectively. Platelet count is 121,000. Differential counts as follows; 35 segmented neutrophils, 44 bands, 14 lymphocytes, 7 monocytes. Metabolic profile; sodium 141, potassium 4.6, chloride is 105, bicarb is 25, BUN 35, creatinine is 8.02, glucose 143. AST and ALT 32 and 10 respectively. IMPRESSION: 1. Postoperative day #1, status post exploratory laparotomy. 2. Ischemic enteritis secondary to acute small bowel obstruction. 3. Chronic renal failure. 4. Acute blood loss anemia. 5. Acute respiratory failure. PLAN: 1. The patient to be weaned and extubated as tolerated. 2. Continue with fluid resuscitation and wean vasopressor support as tolerated. 3. Increase activity per Physical and Occupational Therapy. Above findings and plan discussed with the patient who nodded to understanding of the information provided. Total critical care time is 35 minutes. Job ID: [id number] [id number]
[2020-07-27 17:31] LABS: Glucose 109 mg/dL (70-105)
[2020-07-27 21:39] LABS: Glucose 90 mg/dL (70-105)
[2020-07-28] MEDS: Hydrocortisone Sod Succ/PF 100 mg/2 ml Vial IVP SCH ×4 (03:09→21:42)
[2020-07-28] MEDS: Sodium Chloride 0.9% 1,000 ML IV SCH (03:10)
[2020-07-28 04:39] LABS: ALT (SGPT) 12 U/L (8-55); AST (SGOT) 36 U/L (5-34); Albumin 2.4 g/dL (3.5-5.0); Alkaline Phosphatase 44 U/L (40-110); Anion Gap 17 mmol/L (10-20); BUN (Urea Nitrogen) 55 mg/dL (8.9-20.6); Bilirubin, Total 1.1 mg/dL (0.2-1.2); Calc. Creatinine Clearance 10 mL/min (70-130); Calcium 8.4 mg/dL (7.8-10.44); Carbon Dioxide 22 mmol/L (22-29); Chloride 107 mmol/L (98-107); Estimated GFR-MDRD 6; Globulin 2.4 g/dL (2.4-3.5); Glucose 73 mg/dL (70-105); Potassium 5.1 mmol/L (3.5-5.1); Protein, Total 4.8 g/dL (6.0-8.3); Sodium 141 mmol/L (136-145)
[2020-07-28 04:42] LABS: Band 23 % (5-11); Hemoglobin 7.1 g/dL (14.0-18.0); Lymphocytes 17 % (21-51); MDiff Complete? YES; Mean Corpuscular HGB CONC 33.1 g/dL (32.0-36.0); Mean Platelet Volume 7.7 fL (7.4-10.4); Metamyelocyte 1 % (0-0); Monocytes 4 % (0-10); Neutrophil 55 % (42-75); Platelet Count 114 thou/uL (130-400); Platelet Morphology Comment Appears Decreased; RBC Distribution Width 13.8 % (11.5-14.5); Red Blood Cell (RBC) Count 2.03 mill/uL (4.70-6.10); White Blood Cell (WBC) Count 6.1 thou/uL (4.8-10.8)
[2020-07-28] MEDS: cefOXitin Sodium/Dextrose,Iso 2 GM in Premix Bag 1 BAG IVPB SCH (05:47)
[2020-07-28 06:37] LABS: Glucose 83 mg/dL (70-105)
--- NOTE | 2020-07-28 07:20 | PDOC.FM ---
- Subjective Subjective: Patient alert, oriented to person and place this morning. He reports pain at his surgical site on abdomen, mostly controlled with Dilaudid BROACHING MACHINE REPAIRER pump although he has to be reminded of this often by nursing staff. He is post op from exploratory laparotomy x 2, most recently yesterday with Dr. Easton during which appendectomy was also performed. He was extubated around 1230 yesterday and was weaned off of pressors overnight. - Objective MAR Reviewed: Yes Vital Signs & Weight: Vital Signs (12 hours) Temp Pulse Ox 07/28/20 04:00 99.5 F 07/28/20 00:00 99 F 07/27/20 20:00 98.5 F 100 Weight Admit Weight 78.018 kg Weight 81.825 kg Most Recent Monitor Data Heart Rate from ECG 97 NIBP 104/66 NIBP BP-Mean 78 Respiration from ECG 12 SpO2 95 I&O: 07/27/20 07/28/20 07/29/20 06:59 06:59 06:59 Intake Total 6756.5 3990.0 Output Total 2185 1305 Balance 4571.5 2685.0 Result Diagrams: 07/28/20 03:00 07/28/20 06:00 Phys Exam - Physical Examination Constitutional: NAD appears chronically ill HEENT: moist MMs NG tube in place, draining brown fluid Respiratory: clear to auscultation bilateral Cardiovascular: RRR, no significant murmur Gastrointestinal: soft, no distention Musculoskeletal: no edema, pulses present Neurological: moves all 4 limbs Psychiatric: normal affect Skin: no rash Dx/Plan (1) Small bowel obstruction due to adhesions Code(s): K56.50 - INTESTNL ADHESIONS, UNSP TO PARTIAL VERSUS COMPLETE OBST Status: Acute (2) Demand ischemia of myocardium Code(s): I24.8 - OTHER FORMS OF ACUTE ISCHEMIC HEART DISEASE Status: Acute (3) History of cardiac arrest Code(s): Z86.74 - PERSONAL HISTORY OF SUDDEN CARDIAC ARREST Status: Chronic (4) Hyperkalemia Code(s): E87.5 - HYPERKALEMIA Status: Acute (5) Seizure disorder Code(s): G40.909 - EPILEPSY, UNSP, NOT INTRACTABLE, WITHOUT STATUS EPILEPTICUS Status: Chronic (6) ESRD (end stage renal disease) Code(s): N18.6 - END STAGE RENAL DISEASE Status: Chronic - Plan Plan: Small Bowel Obstruction -CT abdomen: There are dilated loops of proximal small bowel measuring up to 5.0 cm in size. The colon is decompressed. The distal small bowel loops are decompressed and there is a transition point in the right lower quadrant of the abdomen. -Admission Exam with tenderness and rebound in RLQ -General Surgery, Dr. Easton-consulted from ED & transitioned care to Dr. Garrison overnight, appreciate recs -s/p exploratory laparotomy on 07/[address] Garrison -during operation developed EKG changes with persistent hypotension, left femoral central line placed and did require pressor support with Levophed & Vasopressin until 07/28 -abdominal wound vac placed on 07/26 with 900 mL output in last 24 hours--discontinued after surgery on 07/27 -s/p 2nd exploratory laparotomy with appendectomy on 07/[address] Easton -placed on Cefoxitin through 07/31 -placed on Hydrocortisone for suspected acute adrenal insufficiency -strict NPO -NG tube in place, draining brown fluid this morning -monitor vitals, I/Os -as of 07/27 has Dilaudid BROACHING MACHINE REPAIRER pump for pain control -Zofran for n/v -admission WBC 5.1, Lactic acid 1.9, CRP 3.87 -IV NS @ 150 ml/hr Elevated Troponin -trop 0.312, likely due to demand ischemia -trend to 0.245 Anion Gap Metabolic Acidosis, resolved -likely due to ischemia enteritis -AG of 22 on admission (Na 140, Cl 94, Bicarb 24, Albumin 5) -trend to AG of 11 on 07/27 (Na 141, Cl 105, Bicarb 25, Albumin 2.5) ESRD on HD -will consult patients electronic component processor Dr. Shin, appreciate recs -typically receives M/W/F dialysis -developed hyperkalemia intraop, urgent dialysis on 07/26 -admission Cr 11.19, BUN 38> trend up to max Cr 12.4 on 07/26 Acute Blood Loss Anemia Macrocytic Anemia, chronic -Hgb 11.9, MCV 103 on admission > trended down to Hgb 7.1 this morning -will transfuse 2 units pRBCs this morning -likely due to chronic kidney disease -is supposed to be taking Retacrit but patient cannot afford so is not taking Diet: Strict NPO Lines: [address], Left Femoral Triple Lumen, Right Forearm 20g IV and Left AV Fistula (dialysis patient) and right radial A-Line VTE: SCDs GI PPx: IV Protonix Code status: FULL Dispo: Stable, admitted to inpatient in ICU. Anticipate discharge in >48 hours. Addendum - Attending - Attending Attestation Date/Time: 07/28/20 4082 I personally evaluated the patient and discussed the management with Dr. Ramos. I agree with the History, Examination, Assessment and Plan documented above with any addition or exceptions noted below. Patinet stable. Continue post op mgmt per Trauma team. Off Pressors and off Ventilator.
--- NOTE | 2020-07-28 09:13 | PRG ---
DATE OF SERVICE: 07/28/2020 SUBJECTIVE: Mr. Ayala is a 45-year-old male with ESRD and on maintenance hemodialysis. He was admitted for small-bowel obstruction. He underwent an exploratory laparotomy with lysis of adhesions. He is doing well. He is now currently extubated. No new complaints. OBJECTIVE: VITAL SIGNS: Blood pressure 104/66, heart rate 97, respiratory rate 12, and O2 saturation 95%. GENERAL: Awake, supine, and comfortable, not in distress. SKIN: Adequate turgor. HEENT: Pale conjunctivae. Anicteric sclerae. No neck mass. No carotid bruits. No JVD. CHEST: No deformities. LUNGS: Clear breath sounds. No wheezing. No crackles. HEART: Normal sinus rhythm. No murmurs, gallops, or rubs. ABDOMEN: Globular, soft, and nontender. No masses. Positive for surgical dressing. EXTREMITIES: No edema. MEDICATIONS: Of July 28, 2020, was reviewed. LABORATORY DATA: Of July 28, 2020; white count 6.1 and hemoglobin 7.1. Sodium 141, potassium 5.1, chloride 107, carbon dioxide 22, BUN 55, creatinine 10.1, glucose 73, and albumin 2.4. ASSESSMENT AND PLAN: 1. End-stage renal disease, stable. We will continue current Friday, Friday, and Friday hemodialysis. The patient is scheduled for 3.5 hour hemodialysis treatment today. Fluid removal will only be done if the patient will tolerate this. 2. Anemia, continue on Epogen. We will transfuse 1 unit packed RBC. 3. Status post small bowel obstruction-the patient is doing better. He is status post exploratory laparotomy. Surgery is following. Overall, prognosis remains guarded. Job ID: [id number] [facility]
[2020-07-28] MEDS: Dextrose 10% in Water 1,000 ML IV SCH (09:35)
[2020-07-28] MEDS: Pantoprazole 40 MG VIAL IVP SCH (09:37)
[2020-07-28] MEDS ORDERED: HYDROmorphone 10 mg/100 ml CADD IVPB PRN (12:22)
--- NOTE | 2020-07-28 12:52 | PRG ---
DATE OF SERVICE: 07/28/2020 SUBJECTIVE: Mr. Ayala is a 45-year-old man, who is postoperative day #1, status post second-look exploratory laparotomy with abdominal closure. The patient was successfully weaned from mechanical ventilator support yesterday and remains awake and alert this morning. He reports 6/10 pain, on Dilaudid STRUCTURAL DESIGN ENGINEER at 0.1 mg q.10 minutes. He is on no vasopressor or inotropic support over the last 5 hours. OBJECTIVE: VITAL SIGNS: Currently include blood pressure 144/91, pulse 104, respiratory rate is 21, maximum temperature in last 24 hours is 99.5 degrees Fahrenheit, oxygen saturation is 97% on 2 L by nasal cannula oxygen. HEART: Reveals regular rate with sinus tachycardia. No murmurs or gallops auscultated. LUNGS: Clear to auscultation bilaterally. Breathing, regular and nonlabored. ABDOMEN: Soft with incisional tenderness to palpation. NEUROLOGIC: Reveals no focal deficits present. LABORATORY FINDINGS: Include a CBC with 6100 white blood cells, hemoglobin and hematocrit are 7.1 and 21.4 respectively, platelet count is 114,000. Differential counts as follows; 55% segmented neutrophils, 23 bands, 17 lymphocytes, 4 monocytes. Metabolic profile; sodium 141, potassium 5.1, chloride is 107, bicarb is 22, BUN is 55, creatinine is 10.15, glucose is 83, total bilirubin is 1.1, AST and ALT 36 and 12 respectively. IMPRESSION: 1. Postop day #1 status post second-look exploratory laparotomy. 2. The patient has residual ischemic enteritis secondary to acute small-bowel obstruction, secondary to intraabdominal adhesion. 3. History of hemodialysis dependent chronic renal failure, stable. 4. Resolved acute distributive shock. PLAN: 1. The patient is suddenly hemodynamically stable to proceed with hemodialysis today. 2. I discussed with Nephrology total fluids at a discretion as blood pressure tolerates. 3. We will optimize pain management. I will increase the Dilaudid to 0.2 mg q.10 minutes. 4. Increase activity per Physical and Occupational Therapy. 5. Should the patient remain stable post hemodialysis, he may be transferred to general surgical floor. Job ID: [id number]
[2020-07-28 21:16] LABS: Glucose 76 mg/dL (70-105)
[2020-07-29] MEDS: Hydrocortisone Sod Succ/PF 100 mg/2 ml Vial IVP SCH ×3 (04:31→20:28)
[2020-07-29] MEDS: cefOXitin Sodium/Dextrose,Iso 2 GM in Premix Bag 1 BAG IVPB SCH (06:04)
[2020-07-29 06:50] LABS: Glucose 94 mg/dL (70-105)
[2020-07-29 06:51] LABS: ALT (SGPT) 20 U/L (8-55); AST (SGOT) 45 U/L (5-34); Albumin 2.7 g/dL (3.5-5.0); Alkaline Phosphatase 61 U/L (40-110); Anion Gap 17 mmol/L (10-20); BUN (Urea Nitrogen) 54 mg/dL (8.9-20.6); Bilirubin, Total 1.9 mg/dL (0.2-1.2); Calc. Creatinine Clearance 12 mL/min (70-130); Calcium 8.4 mg/dL (7.8-10.44); Carbon Dioxide 25 mmol/L (22-29); Chloride 103 mmol/L (98-107); Estimated GFR-MDRD 6; Globulin 2.8 g/dL (2.4-3.5); Glucose 95 mg/dL (70-105); Potassium 4.2 mmol/L (3.5-5.1); Protein, Total 5.5 g/dL (6.0-8.3); Sodium 141 mmol/L (136-145)
--- NOTE | 2020-07-29 06:54 | PDOC.FM ---
- Subjective Subjective: Patient states he feels "okay" this morning. Was transitioned out of ICU to surgical floor yesterday. Pain controlled with Dilaudid pump. His pain is mainly located near surgical site on abdomen. He is also having some discomfort from a blister on his right heel. He is tolerating ice chips but is otherwise NPO. Has not passed flatus. - Objective MAR Reviewed: Yes Vital Signs & Weight: Vital Signs (12 hours) Temp Pulse Resp BP Pulse Ox 07/29/20 04:35 97.7 F 92 18 157/95 H 94 L 07/28/20 19:45 98.2 F 98 16 124/78 96 Weight Admit Weight 78.018 kg Weight 81.825 kg Most Recent Monitor Data Heart Rate from ECG 94 NIBP 150/91 NIBP BP-Mean 110 Respiration from ECG 15 SpO2 100 I&O: 07/27/20 07/28/20 07/29/20 06:59 06:59 06:59 Intake Total 6756.5 3990.0 1540 Output Total 2185 1305 1900 Balance 4571.5 2685.0 -360 Result Diagrams: 07/29/20 06:00 07/29/20 11:48 Phys Exam - Physical Examination Constitutional: NAD HEENT: moist MMs Neck: supple equal chest rise and fall, even respirations Gastrointestinal: soft, no distention Musculoskeletal: no edema, pulses present Neurological: moves all 4 limbs Psychiatric: normal affect, A&O x 3 Skin: no rash Deviation from normal: quarter-size fluid filled blister on right heel Dx/Plan (1) Small bowel obstruction due to adhesions Code(s): K56.50 - INTESTNL ADHESIONS, UNSP TO PARTIAL VERSUS COMPLETE OBST Status: Acute (2) Demand ischemia of myocardium Code(s): I24.8 - OTHER FORMS OF ACUTE ISCHEMIC HEART DISEASE Status: Acute (3) History of cardiac arrest Code(s): Z86.74 - PERSONAL HISTORY OF SUDDEN CARDIAC ARREST Status: Chronic (4) Hyperkalemia Code(s): E87.5 - HYPERKALEMIA Status: Acute (5) Seizure disorder Code(s): G40.909 - EPILEPSY, UNSP, NOT INTRACTABLE, WITHOUT STATUS EPILEPTICUS Status: Chronic (6) ESRD (end stage renal disease) Code(s): N18.6 - END STAGE RENAL DISEASE Status: Chronic - Plan Plan: Small Bowel Obstruction, s/p exploratory laparotomy x 2 -CT abdomen: There are dilated loops of proximal small bowel measuring up to 5.0 cm in size. The colon is decompressed. The distal small bowel loops are decompressed and there is a transition point in the right lower quadrant of the abdomen. -Admission Exam with tenderness and rebound in RLQ -General Surgery, Dr. Easton-consulted from ED & transitioned care to Dr. Garrison overnight, appreciate recs -s/p exploratory laparotomy on 07/[address] Garrison -during operation developed EKG changes with persistent hypotension, left femoral central line placed and did require pressor support with Levophed & Vasopressin until 07/28 -abdominal wound vac placed on 07/26 with 900 mL output in last 24 hours--discontinued after surgery on 07/27 -s/p 2nd exploratory laparotomy with appendectomy on 07/[address] Easton -placed on Cefoxitin through 07/31 -placed on Hydrocortisone for suspected acute adrenal insufficiency -continue postop management per trauma surgery team -strict NPO -NG tube in place, draining brown fluid this morning -monitor vitals, I/Os -as of 07/27 has Dilaudid FRAME WELDER CARGO UTILITY TRAILERS pump for pain control -Zofran for n/v -admission WBC 5.1, Lactic acid 1.9, CRP 3.87 -IV NS @ 150 ml/hr Elevated Troponin -trop 0.312, likely due to demand ischemia -trend to 0.245 Anion Gap Metabolic Acidosis, resolved -likely due to ischemia enteritis -AG of 22 on admission (Na 140, Cl 94, Bicarb 24, Albumin 5) -trend to AG of 11 on 07/27 (Na 141, Cl 105, Bicarb 25, Albumin 2.5) ESRD on HD -consult patients digital marketing executive Dr. Shin, appreciate recs -typically receives M/W/F dialysis -developed hyperkalemia intraop, urgent dialysis on 07/26 -admission Cr 11.19, BUN 38> trend up to max Cr 12.4 on 07/26 Acute Blood Loss Anemia Macrocytic Anemia, chronic -Hgb 11.9, MCV 103 on admission > trended down to Hgb 7.1 this morning -s/p 2 units pRBCs on 07/28 -likely due to chronic kidney disease -is supposed to be taking Retacrit but patient cannot afford so is not taking Diet: Strict NPO, ice chips allowed Lines: [address], Left Femoral Triple Lumen, Right Forearm 20g IV and Left AV Fistula (dialysis patient) VTE: SCDs GI PPx: IV Protonix Code status: FULL Dispo: Stable, admitted to inpatient on surgical unit. Anticipate discharge in >48 hours. Addendum - Attending - Attending Attestation Date/Time: 07/29/20 2645 I personally evaluated the patient and discussed the management with Dr. Ramos I agree with the History, Examination, Assessment and Plan documented above with any addition or exceptions noted below.
[2020-07-29 07:37] LABS: Hemoglobin 8.6 g/dL (14.0-18.0); Mean Corpuscular HGB CONC 33.4 g/dL (32.0-36.0); Mean Corpuscular Hemoglobin 34.1 pg (27.0-31.0); Mean Platelet Volume 7.5 fL (7.4-10.4); Platelet Count 110 thou/uL (130-400); RBC Distribution Width 15.5 % (11.5-14.5); Red Blood Cell (RBC) Count 2.51 mill/uL (4.70-6.10); White Blood Cell (WBC) Count 7.2 thou/uL (4.8-10.8)
[2020-07-29 08:31] LABS: Anisocytosis SLIGHT = 6-15 cells (100X) (0-5/hpf); Hypochromia SLIGHT = 6-15 cells (100X) (0-5/hpf); Lymphocytes 16 % (21-51); MDiff Complete? YES; Neutrophil 84 % (42-75); Platelet Morphology Comment Appears Decreased
[2020-07-29] MEDS: Dextrose 10% in Water 1,000 ML IV SCH (09:00)
[2020-07-29] MEDS: Pantoprazole 40 MG VIAL IVP SCH (09:09)
[2020-07-29] MEDS ORDERED: Epoetin (ESRD) 20,000 UNITS/ML SC SCH (11:00)
--- NOTE | 2020-07-29 11:09 | PRG ---
DATE OF SERVICE: 07/29/2020 SUBJECTIVE: Mr. Ayala is a 45-year-old male with ESRD, currently on maintenance hemodialysis. He was admitted for small-bowel obstruction and underwent exploratory laparotomy with lysis of lesions. We are following him up for management of his ESRD. He underwent hemodialysis yesterday without any difficulty. He voices no new complaints today. He denies any chest pain or shortness of breath. OBJECTIVE: VITAL SIGNS: Blood pressure 167/95, heart rate 92, respiratory rate 16, temperature 98, O2 saturation 95% on room air. GENERAL: The patient is awake, supine, comfortable, not in distress. SKIN: Adequate turgor. HEENT: He has slightly pale conjunctivae. Anicteric sclerae. NECK: No neck mass. No carotid bruits. No JVD. CHEST: No deformities. LUNGS: Clear breath sounds. No wheezing. No crackles. HEART: Normal sinus rhythm. No murmur. No gallops. No rubs. ABDOMEN: Globular, soft, nontender. Positive for surgical scar. EXTREMITIES: No edema, no deformities. MEDICATIONS: Medications of July 29, 2020, was reviewed. LABORATORY DATA: Laboratories of July 29, 2020: Sodium 141, potassium 4.2, chloride 103, carbon dioxide 25, BUN 54, creatinine 9.2, calcium 8.4, AST 45, ALT 20, albumin 2.7. White count 7.2, hemoglobin 8.6. ASSESSMENT AND PLAN: 1. Anemia. Start Epogen 7500 units subcutaneously q. week. 2. End-stage renal disease, stable, tolerating current hemodialysis regimen. No indication for any emergent hemodialysis today. 3. Status post small bowel obstruction-patient is status post exploratory laparotomy with lysis of lesions. He is doing well. Surgery is following. Recheck CBC basement in a.m. Job ID: [id number]
[2020-07-29 12:11] LABS: Glucose 102 mg/dL (70-105)
--- NOTE | 2020-07-29 12:53 | PRG ---
DATE OF SERVICE: 07/29/2020 The patient was seen on morning rounds. SUBJECTIVE: Mr. Ayala is a 45-year-old male, who is postop day #2 status post second-look exploratory laparotomy with abdominal closure for ischemic bowel. The patient was successfully weaned from the ventilator over 24 hours ago. He has been off pressor medications. He tolerated dialysis yesterday. His line has been removed. His Mancuso catheter and rectal tubes have been removed. He is now transferred to the surgery tong and we were evaluating him. There, he is awake and alert. He still has some abdominal pain. His NG tube output is much more clear today. He has been tolerating ice chips. Total NG tube output was 1300 mL yesterday. They have reported nearly 1900 mL today; however, that was not in the canister unless they changed it. He did have 2 L removal from dialysis yesterday. OBJECTIVE DATA: VITAL SIGNS: Temperature is 98.0, blood pressure 167/95, heart rate is 92, breathing 16 times per minute, and 95% on room air. GENERAL: This is a 45-year-old male, sitting up, no real acute distress. He has an NG tube and Dobbhoff tube in the nares. HEENT: NG tube and Dobbhoff tube as noted. Trachea is midline. RESPIRATORY: Equal rise and fall. Bilateral breath sounds are clear. Respiratory retraction. CARDIOVASCULAR: Regular rate and rhythm. noted. ABDOMEN: He has a midline incision scar with dressing is dry. The patient does have slight tenderness with palpation of the abdomen. No danita guarding. Mild distention with no danita rigidity. Pelvis is stable. MUSCULOSKELETAL: He is able to move his extremities. PSYCH: Normal mood and affect. NEUROLOGIC: Alert and oriented to person, place, time, and event. LABORATORY DATA: Today white blood cell count is 7.2, platelets are 110, and hemoglobin and hematocrit is 8.6 and 25.7 respectively. Sodium is 141, potassium 4.2, chloride is 103, CO2 is 25, BUN is 54, creatinine is 9.2, total bilirubin is 1.9, AST and ALT 45 and 20 respectively, and alkaline phosphatase is 61. ASSESSMENT: 1. Postop day #2 status post second-look exploratory laparotomy with abdominal closure. 2. The patient has residual ischemic antritis secondary to acute small bowel obstruction secondary to intraabdominal adhesions. 3. History of hemodialysis dependency and end-stage renal disease, stable and tolerating hemodialysis. 4. Resolved acute distributive/septic shock. PLAN: 1. Able to continue with usual hemodialysis schedule. 2. Continue NG tube at this time. 3. We will continue with ice chips and withhold trophic feeds today given evidence of mild peritonitis. 4. Continue to optimize pain management. His Dilaudid was increased yesterday and does seem to be improving. 5. Increase PT and OT. The patient is able to ambulate with assistance. 6. We will continue to follow. This case was discussed with Dr. Easton. Job ID: [id number]
[2020-07-29] MEDS ORDERED: EPOETIN ALFA-EPBX (ESRD) 10,000 UNIT/ML VIAL SC SCH (13:00)
[2020-07-29] MEDS: EPOETIN ALFA-EPBX (ESRD) 4,000 UNIT/ML VIAL SC SCH (15:17)
[2020-07-29] MEDS: Metoprolol Tartrate 5 MG/5 ML VIAL IVP SCH (18:06)
[2020-07-29] MEDS: levETIRAcetam in NS 500 MG in Premix Bag 1 BAG IVPB SCH (20:25)
[2020-07-29] MEDS: hydrALAZINE 25 MG TAB PO SCH (20:35)
[2020-07-29] MEDS: Carvedilol 3.125 MG TAB PO SCH (20:35)
[2020-07-29] MEDS ORDERED: levETIRAcetam 500 MG TAB PO SCH (21:00)
[2020-07-30] MEDS: Metoprolol Tartrate 5 MG/5 ML VIAL IVP SCH ×2 (00:24→05:13)
[2020-07-30] MEDS: cefOXitin Sodium/Dextrose,Iso 2 GM in Premix Bag 1 BAG IVPB SCH (05:12)
[2020-07-30 06:01] LABS: Band 1 % (5-11); Hypochromia SLIGHT = 6-15 cells (100X) (0-5/hpf); Lymphocytes 11 % (21-51); MDiff Complete? YES; Macrocytosis SLIGHT = 6-15 cells (100X) (0-5/hpf); Mean Corpuscular HGB CONC 33.4 g/dL (32.0-36.0); Mean Corpuscular Hemoglobin 33.4 pg (27.0-31.0); Mean Platelet Volume 7.3 fL (7.4-10.4); Monocytes 3 % (0-10); Neutrophil 85 % (42-75); Platelet Count 118 thou/uL (130-400); Platelet Morphology Comment Appears Decreased; RBC Distribution Width 15.3 % (11.5-14.5); Red Blood Cell (RBC) Count 2.38 mill/uL (4.70-6.10)
[2020-07-30 06:02] LABS: Phosphorus 6.9 mg/dL (2.3-4.7)
[2020-07-30 06:06] LABS: ALT (SGPT) 22 U/L (8-55); AST (SGOT) 42 U/L (5-34); Albumin 2.7 g/dL (3.5-5.0); Alkaline Phosphatase 73 U/L (40-110); Anion Gap 21 mmol/L (10-20); BUN (Urea Nitrogen) 85 mg/dL (8.9-20.6); Bilirubin, Total 1.5 mg/dL (0.2-1.2); Calc. Creatinine Clearance 9 mL/min (70-130); Calcium 8.7 mg/dL (7.8-10.44); Carbon Dioxide 24 mmol/L (22-29); Chloride 101 mmol/L (98-107); Estimated GFR-MDRD 5; Globulin 2.8 g/dL (2.4-3.5); Glucose 90 mg/dL (70-105); Magnesium 2.5 mg/dL (1.6-2.6); Protein, Total 5.5 g/dL (6.0-8.3); Sodium 142 mmol/L (136-145)
[2020-07-30 06:12] LABS: Glucose 89 mg/dL (70-105)
[2020-07-30] MEDS: hydrALAZINE 25 MG TAB PO SCH ×3 (07:53→20:28)
[2020-07-30] MEDS: Carvedilol 3.125 MG TAB PO SCH ×2 (07:53→20:29)
[2020-07-30] MEDS: Atorvastatin Calcium 40 MG TAB PO SCH (07:53)
[2020-07-30] MEDS: Lisinopril 20 MG TAB PO SCH (07:54)
[2020-07-30] MEDS: NIFEdipine XL 30 MG TAB PO SCH (07:54)
--- NOTE | 2020-07-30 08:33 | PDOC.FM ---
- Subjective Subjective: Patient feeling okay this morning. He does complain of some pain in the right lower quadrant of abdomen and near his incision site. He has been using Dilaudid OIL TESTER pump for pain which he says has given him "good" control. He had 3 watery BMs overnight and has been passing gas. No episodes of vomiting, has had some hiccups. - Objective MAR Reviewed: Yes Vital Signs & Weight: Vital Signs (12 hours) Temp Pulse Resp BP Pulse Ox 07/30/20 05:00 97.9 F 68 16 152/70 H 93 L 07/30/20 00:32 98.2 F 92 18 169/97 H 97 07/29/20 20:35 78 Weight Admit Weight 78.018 kg Weight 80.286 kg Most Recent Monitor Data Heart Rate from ECG 94 NIBP 150/91 NIBP BP-Mean 110 Respiration from ECG 15 SpO2 100 I&O: 07/29/20 07/30/20 07/31/20 06:59 06:59 06:59 Intake Total 1540 1200 Output Total 1900 3550 Balance -360 -2350 Result Diagrams: 07/30/20 05:17 07/30/20 05:17 Phys Exam - Physical Examination Constitutional: NAD HEENT: moist MMs Neck: supple Respiratory: clear to auscultation bilateral Cardiovascular: RRR Gastrointestinal: soft, no distention sig. TTP in RLQ and near incision site Musculoskeletal: no edema, pulses present Neurological: moves all 4 limbs Psychiatric: normal affect, A&O x 3 Skin: no rash Deviation from normal: large blister on right heel Dx/Plan (1) Small bowel obstruction due to adhesions Code(s): K56.50 - INTESTNL ADHESIONS, UNSP TO PARTIAL VERSUS COMPLETE OBST Status: Acute (2) Demand ischemia of myocardium Code(s): I24.8 - OTHER FORMS OF ACUTE ISCHEMIC HEART DISEASE Status: Acute (3) History of cardiac arrest Code(s): Z86.74 - PERSONAL HISTORY OF SUDDEN CARDIAC ARREST Status: Chronic (4) Hyperkalemia Code(s): E87.5 - HYPERKALEMIA Status: Acute (5) Seizure disorder Code(s): G40.909 - EPILEPSY, UNSP, NOT INTRACTABLE, WITHOUT STATUS EPILEPTICUS Status: Chronic (6) ESRD (end stage renal disease) Code(s): N18.6 - END STAGE RENAL DISEASE Status: Chronic - Plan Plan: Small Bowel Obstruction, s/p exploratory laparotomy x 2 -CT abdomen: There are dilated loops of proximal small bowel measuring up to 5.0 cm in size. The colon is decompressed. The distal small bowel loops are decompressed and there is a transition point in the right lower quadrant of the abdomen. -Admission Exam with tenderness and rebound in RLQ -General Surgery, Dr. Easton-consulted from ED & transitioned care to Dr. Garrison overnight, appreciate recs -s/p exploratory laparotomy on 07/[address] Garrison -during operation developed EKG changes with persistent hypotension, left femoral central line placed and did require pressor support with Levophed & Vasopressin until 07/28 -abdominal wound vac placed on 07/26 with 900 mL output in last 24 hours--discontinued after surgery on 07/27 -s/p 2nd exploratory laparotomy with appendectomy on 07/[address] Easton -placed on Cefoxitin through 07/31 -placed on Hydrocortisone for suspected acute adrenal insufficiency -continue postop management per trauma surgery team -NPO--allowing ice chips, surgery team holding off on any further liquids due to continued mild peritonitis, will reassess today -NG tube in place, draining clear green fluid this morning -monitor vitals, I/Os -as of 07/27 has Dilaudid OIL TESTER pump for pain control -Zofran for n/v -admission WBC 5.1, Lactic acid 1.9, CRP 3.87 -IV NS @ 150 ml/hr Elevated Troponin -trop 0.312, likely due to demand ischemia -trend to 0.245 Anion Gap Metabolic Acidosis, resolved -likely due to ischemia enteritis -AG of 22 on admission (Na 140, Cl 94, Bicarb 24, Albumin 5) -trend to AG of 11 on 07/27 (Na 141, Cl 105, Bicarb 25, Albumin 2.5) ESRD on HD -consult patients christian counselor Dr. Shin, appreciate recs -typically receives M/W/F dialysis -developed hyperkalemia intraop, urgent dialysis on 07/26, otherwise has been following his regular schedule -admission Cr 11.19, BUN 38> trend up to max Cr 12.4 on 07/26 Acute Blood Loss Anemia Macrocytic Anemia, chronic -Hgb 11.9, MCV 103 on admission > trended down to Hgb 7.1 this morning -s/p 2 units pRBCs on 07/28 -likely due to chronic kidney disease -is supposed to be taking Retacrit but patient cannot afford so is not taking at home -Dr. Shin to resume Epogen weekly Diet: Strict NPO, ice chips allowed Lines: [address], Left Femoral Triple Lumen, Right Forearm 20g IV and Left AV Fistula (dialysis patient) VTE: SCDs GI PPx: IV Protonix Code status: FULL Dispo: Stable, admitted to inpatient on surgical unit. Anticipate discharge in >48 hours. Addendum - Attending - Attending Attestation Date/Time: 07/30/20 [id number] I personally evaluated the patient and discussed the management with Dr. Ramos I agree with the History, Examination, Assessment and Plan documented above with any addition or exceptions noted below. POD#3 s/p re-exploratory lap continue to advance per surgery. Patient for HD MWF expectant care.
[2020-07-30] MEDS: levETIRAcetam in NS 500 MG in Premix Bag 1 BAG IVPB SCH ×2 (09:07→20:23)
[2020-07-30] MEDS: Hydrocortisone Sod Succ/PF 100 mg/2 ml Vial IVP SCH (09:07)
[2020-07-30] MEDS: Pantoprazole 40 MG VIAL IVP SCH (09:07)
--- NOTE | 2020-07-30 12:57 | PRG ---
DATE OF SERVICE: 07/30/2020 SUBJECTIVE: Mr. Ayala is a 45-year-old male, who has known history of ESRD and was admitted for small-bowel obstruction. He has undergone exploratory laparotomy with lysis of adhesions. Since surgery, he is doing stable. We are following him up for his maintenance hemodialysis. No acute events noted last night. OBJECTIVE: VITAL SIGNS: Blood pressure 169/85, heart rate 70, respiratory rate 18, temperature 97.8, O2 saturation 98% on room air. GENERAL: The patient is awake, supine, comfortable, not in distress. SKIN: Adequate turgor. HEENT: He has a slightly pale conjunctivae. Anicteric sclerae. NECK: No neck mass. No carotid bruits. No JVD. Positive for an NG tube. LUNGS: Decreased breath sounds. HEART: Normal sinus rhythm. No murmurs. No gallops. No rubs. ABDOMEN: Globular, soft, nontender. Positive for surgical dressing. EXTREMITIES: No edema. No deformities. MEDICATIONS: Medications of July 30, 2020, was reviewed. LABORATORY DATA: Laboratories of July 30, 2020; white count 7, hemoglobin 8. Sodium 142, potassium 4, chloride 101, carbon dioxide 24, BUN 85, creatinine 12, calcium 8.7. AST 42, ALT 22, albumin 2.7, phosphorus is noted at 6.9. ASSESSMENT AND PLAN: 1. End-stage renal disease-stable. We will continue current hemodialysis regimen. No indication for any emergent hemodialysis. Continue supportive care. 2. Hyperphosphatemia. Consider changing tube feeding to low phosphorus tube feeding-Nepro. 3. Anemia. Continuing weekly Epogen. 4. Status post small bowel obstruction doing well. The patient is status post exploratory laparotomy. 5. Recheck CBC and basic met in a.m. Job ID: [id number]
[2020-07-30] MEDS: Dextrose 10% in Water 1,000 ML IV SCH (14:12)
--- NOTE | 2020-07-30 17:14 | PRG ---
DATE OF SERVICE: SUBJECTIVE: Mr. Ayala is a 45-year-old male, who is postop day #3, status post second-look exploratory laparotomy with abdominal closure for ischemic bowel. Patient was weaned from the ventilator. He is on room air. Tolerating dialysis. Improved. He has actually ambulated. He had two bowel movements overnight. He said his stomach pain has generally improved. He is on a NURSE CLINICIAN as of today. No other stress. He remains afebrile. His NG tube output has been about 500 since 7 a.m. today and I was seeing him around 11 a.m. He said lot of this is ice chips that he is eating. Patient states that he feels hungry. He is generally feeling much better. OBJECTIVE: VITAL SIGNS: Temperature is 97.9, blood pressure 152/70, heart rate is 68, respiratory rate is 16, and O2 saturation 93% on room air. GENERAL: A 45-year-old male sitting up in bed, in no acute distress. Nontoxic appearing. HEENT: Normocephalic, atraumatic. Trachea is midline. No JVD is appreciated. RESPIRATORY: Equal rise and fall. Bilateral breath sounds are clear to auscultation. CARDIOVASCULAR: Regular rate and rhythm. EXTREMITIES: Does have a fistula noted. ABDOMEN: It is actually soft today. He has no guarding or rigidity. Less distended. Does have the midline incision. Dressing is dry. He reports to be having bowel movements. MUSCULOSKELETAL: He moves these well. PSYCH: Normal mood and affect. NEUROLOGIC: Alert and oriented to person, place, time, and event. GCS is 15. LABORATORY DATA: From today, white blood cell count is 7.0, platelets are 118, hemoglobin and hematocrit 8.0 and 23.9 respectively. Sodium is 142, potassium 4.0, chloride is 101, CO2 is 24, BUN is 85, creatinine is 12.01, glucose is 90, total bilirubin 1.5. AST, ALT 42 and 22 respectively. Albumin is 2.7, globulin is 2.8, and phos is 6.9. ASSESSMENT: 1. Postop day #3 status post second-look exploratory laparotomy with abdominal closure. 2. Ischemic enteritis secondary to small-bowel obstruction secondary to intraabdominal adhesions and this is grossly improving. No peritonitis today. 3. History of end-stage renal disease, on hemodialysis, stable. 4. Resolved acute distributive shock. PLAN: 1. Can continue hemodialysis. 2. We will start trophic feeds at 10 only. Discussed with the bedside RN. 3. We will suspend the scheduled IV Lopressor and do home medications via Dobhoff tube. Discussed with the bedside RN. 4. Continue to work with PT, OT, and continue ambulation. 5. Continue to optimize pain management. We will go back down on his Dilaudid today and hopefully get him on oral medicines very soon. We will continue to follow. Case was discussed with Dr. Easton. Job ID: [id number]
[2020-07-30] MEDS: HYDROmorphone 10 mg/100 ml CADD IVPB PRN (17:18)
[2020-07-31 04:03] LABS: ALT (SGPT) 21 U/L (8-55); AST (SGOT) 31 U/L (5-34); Albumin 2.7 g/dL (3.5-5.0); Alkaline Phosphatase 80 U/L (40-110); Anion Gap 23 mmol/L (10-20); BUN (Urea Nitrogen) 102 mg/dL (8.9-20.6); Bilirubin, Total 1.4 mg/dL (0.2-1.2); Calc. Creatinine Clearance 8 mL/min (70-130); Calcium 8.6 mg/dL (7.8-10.44); Carbon Dioxide 24 mmol/L (22-29); Chloride 99 mmol/L (98-107); Estimated GFR-MDRD 4; Globulin 2.9 g/dL (2.4-3.5); Glucose 74 mg/dL (70-105); Potassium 3.7 mmol/L (3.5-5.1); Protein, Total 5.6 g/dL (6.0-8.3); Sodium 142 mmol/L (136-145)
[2020-07-31 04:41] LABS: Band 13 % (5-11); Hemoglobin 8.3 g/dL (14.0-18.0); Hypochromia SLIGHT = 6-15 cells (100X) (0-5/hpf); Lymphocytes 17 % (21-51); MDiff Complete? YES; Mean Corpuscular HGB CONC 33.6 g/dL (32.0-36.0); Mean Corpuscular Hemoglobin 33.3 pg (27.0-31.0); Mean Platelet Volume 7.6 fL (7.4-10.4); Monocytes 10 % (0-10); Neutrophil 60 % (42-75); Platelet Count 130 thou/uL (130-400); Platelet Morphology Comment Appears Adequate; RBC Distribution Width 14.9 % (11.5-14.5); Red Blood Cell (RBC) Count 2.48 mill/uL (4.70-6.10)
[2020-07-31] MEDS: cefOXitin Sodium/Dextrose,Iso 2 GM in Premix Bag 1 BAG IVPB SCH (05:27)
--- NOTE | 2020-07-31 07:02 | PDOC.FM ---
- Subjective Subjective: Pt denies any nausea, vomiting, or abdominal pain. He would like to get tubes out of his nose currently. Currently on Trophic feeds of 10. Going for dialysis this morning. - Objective MAR Reviewed: Yes Vital Signs & Weight: Vital Signs (12 hours) Temp Pulse Resp BP BP Pulse Ox 07/31/20 00:21 97.5 F L 69 18 160/85 H 99 07/30/20 20:28 80 170/91 H 07/30/20 19:52 97.3 F L 80 18 170/91 H 98 Weight Admit Weight 78.018 kg Weight 78.118 kg Most Recent Monitor Data Heart Rate from ECG 94 NIBP 150/91 NIBP BP-Mean 110 Respiration from ECG 15 SpO2 100 I&O: 07/29/20 07/30/20 07/31/20 06:59 06:59 06:59 Intake Total 1540 1200 1680 Output Total 1900 3550 4789 Balance -271 -8817 -4750 Result Diagrams: 07/31/20 03:15 07/31/20 03:15 Phys Exam - Physical Examination Constitutional: NAD HEENT: moist MMs, sclera anicteric Neck: no nodes, supple Respiratory: no wheezing, no rales, no rhonchi, clear to auscultation bilateral Cardiovascular: RRR, no significant murmur Gastrointestinal: soft, non-tender, positive bowel sounds Dressing on abdomen c/d/i Musculoskeletal: no edema, pulses present Neurological: moves all 4 limbs Lymphatic: no nodes Psychiatric: normal affect Skin: no rash, normal turgor Dx/Plan (1) Acute adrenal insufficiency Status: Acute (2) Increased anion gap metabolic acidosis Code(s): E87.2 - ACIDOSIS Status: Acute (3) Small bowel obstruction due to adhesions Code(s): K56.50 - INTESTNL ADHESIONS, UNSP TO PARTIAL VERSUS COMPLETE OBST Status: Acute (4) Cardiac arrest Code(s): I46.9 - CARDIAC ARREST, CAUSE UNSPECIFIED Status: Acute (5) Demand ischemia of myocardium Code(s): I24.8 - OTHER FORMS OF ACUTE ISCHEMIC HEART DISEASE Status: Acute (6) ESRD (end stage renal disease) Code(s): N18.6 - END STAGE RENAL DISEASE Status: Acute (7) HTN (hypertension) Code(s): I10 - ESSENTIAL (PRIMARY) HYPERTENSION Status: Chronic Qualifiers: Hypertension type: essential hypertension Qualified Code(s): I10 - Essential (primary) hypertension (8) Seizure disorder Code(s): G40.909 - EPILEPSY, UNSP, NOT INTRACTABLE, WITHOUT STATUS EPILEPTICUS Status: Chronic - Plan Plan: 1. Small Bowel Obstruction, s/p exploratory laparotomy x 2 -CT abdomen: There are dilated loops of proximal small bowel measuring up to 5.0 cm in size. The colon is decompressed. The distal small bowel loops are decom pressed and there is a transition point in the right lower quadrant of the abdomen. -Admission Exam with tenderness and rebound in RLQ -General Surgery, Dr. Easton-consulted from ED & transitioned care to Dr. Garrison overnight, appreciate recs -s/p exploratory laparotomy on 07/[address] Garrison -during operation developed EKG changes with persistent hypotension, left femoral central line placed and did require pressor support with Levophed & Vasopressin until 07/28 -abdominal wound vac placed on 07/26 with 900 mL output in last 24 hours--discontinued after surgery on 07/27 -s/p 2nd exploratory laparotomy with appendectomy on 07/[address] Easton -placed on Cefoxitin through 07/31, discontinued this mornign -placed on Hydrocortisone for suspected acute adrenal insufficiency -continue postop management per trauma surgery team -Trophic feeds started at 10. Nephro recommends low phosphorus- nepro -NG tube in place, draining clear green fluid this morning -monitor vitals, I/Os -Pain Control: 07/27 Dilaudid WEBSITE ADMIN pump -Zofran for n/v -admission WBC 4.0 2. Elevated Troponin -trop 0.312, likely due to demand ischemia -trended to 0.245 3. Anion Gap Metabolic Acidosis A, will monitor -likely due to ischemia enteritis -AG of 22 on admission (Na 140, Cl 94, Bicarb 24, Albumin 5) 4. ESRD on HD -consult patients custom marine canvas fabricator Dr. Shin, appreciate recs -typically receives M/W/F dialysis -developed hyperkalemia intraop, urgent dialysis on 07/26, otherwise has been following his regular schedule -admission Cr 11.19, BUN 38> trend up to max Cr 14.05 on 07/31 5. Acute Blood Loss Anemia Macrocytic Anemia, chronic -Hgb 11.9, MCV 103 on admission > trended down to Hgb 8.3 this morning -s/p 2 units pRBCs on 07/28 -likely due to chronic kidney disease -is supposed to be taking Retacrit but patient cannot afford so is not taking at home -Dr. Shin to resume Epogen weekly 6. HTN - Meds: Coreg, Lisinopril, Hydralazine, Procardia Code Status: Full Diet: Strict NPO, ice chips allowed Lines: [address], Left Femoral Triple Lumen, Right Forearm 20g IV and Left AV Fistula (dialysis patient) VTE: SCDs GI PPx: IV Protonix PCP: NOHEMI Mejía Dispo: Restarted home blood pressure meds. Tube feeds per surgery. Needs dialysis today. Will continue to monitor. Addendum - Attending - Attending Attestation Date/Time: 07/31/20 1341 I personally evaluated the patient and discussed the management with Dr. Herrmann. I agree with the History, Examination, Assessment and Plan documented above with any addition or exceptions noted below. Continue post op care per gen surg. BP meds per tube.
[2020-07-31] MEDS: Dextrose 10% in Water 1,000 ML IV SCH (08:06)
--- NOTE | 2020-07-31 09:01 | PRG ---
DATE OF SERVICE: 07/31/2020 SUBJECTIVE: Mr. Ayala is a 45-year-old white male with ESRD and was admitted for small bowel obstruction - underwent exploratory laparotomy with lysis of adhesions. Doing better since that time. He is still n.p.o. and has an NG tube and currently on tube feeding. He is currently undergoing hemodialysis. He voices no new complaints. OBJECTIVE: VITAL SIGNS: Blood pressure is 166/90, heart rate 72, respiratory rate 16, temperature 98.1, and O2 saturation 97%. GENERAL: He is noted to be awake, alert, comfortable, not in overt distress. SKIN: Adequate turgor. HEENT: He has slightly pale conjunctivae. Anicteric sclerae. NECK: No neck mass. No carotid bruits. No JVD. CHEST: No deformities. LUNGS: Decreased breath sounds. HEART: Normal sinus rhythm. No murmur. No gallops. No rubs. ABDOMEN: Globular, soft, and nontender. No masses. EXTREMITIES: No edema. No deformities. MEDICATIONS: Of July 31, 2020, reviewed. LABORATORY DATA: Laboratories of July 31, 2020; white count 4, hemoglobin 8.3. Sodium 142, potassium 3.7, chloride 99, carbon dioxide 24, BUN 102, creatinine 14.05, calcium 8.6, AST 31, ALT 21, and albumin 2.7. ASSESSMENT AND PLAN: 1. End-stage renal disease, stable. We will continue current Friday, Friday, and Friday hemodialysis regimen. Fluid removal as tolerated. Currently using no heparin with dialysis. 2. Hyperphosphatemia - tube feeding has been changed to Nepro. 3. Status post exploratory laparotomy for small bowel obstruction - doing well. Surgery is following. Job ID: [id number]
[2020-07-31] MEDS: Lisinopril 20 MG TAB PO SCH (09:22)
[2020-07-31] MEDS: Carvedilol 3.125 MG TAB PO SCH ×2 (09:22→21:53)
[2020-07-31] MEDS: Atorvastatin Calcium 40 MG TAB PO SCH (09:22)
[2020-07-31] MEDS: NIFEdipine XL 30 MG TAB PO SCH (09:22)
[2020-07-31] MEDS: levETIRAcetam in NS 500 MG in Premix Bag 1 BAG IVPB SCH ×2 (09:23→21:53)
[2020-07-31] MEDS: hydrALAZINE 25 MG TAB PO SCH ×3 (09:23→21:54)
[2020-07-31] MEDS: Pantoprazole 40 MG VIAL IVP SCH ×3 (09:24→21:55)
[2020-07-31] MEDS: Phenytoin 50 MG Chewable Tablet PO SCH ×2 (14:30→21:54)
[2020-07-31] MEDS ORDERED: Pantoprazole 40 MG VIAL IVP SCH (21:00)
[2020-07-31] MEDS: HYDROmorphone 10 mg/100 ml CADD IVPB PRN (21:47)
[2020-08-01 05:50] LABS: ALT (SGPT) 21 U/L (8-55); AST (SGOT) 26 U/L (5-34); Albumin 2.9 g/dL (3.5-5.0); Alkaline Phosphatase 91 U/L (40-110); Anion Gap 22 mmol/L (10-20); BUN (Urea Nitrogen) 56 mg/dL (8.9-20.6); Bilirubin, Total 1.8 mg/dL (0.2-1.2); Calc. Creatinine Clearance 11 mL/min (70-130); Calcium 8.6 mg/dL (7.8-10.44); Carbon Dioxide 23 mmol/L (22-29); Chloride 98 mmol/L (98-107); Estimated GFR-MDRD 6; Globulin 3.2 g/dL (2.4-3.5); Glucose 91 mg/dL (70-105); Potassium 3.6 mmol/L (3.5-5.1); Protein, Total 6.1 g/dL (6.0-8.3); Sodium 139 mmol/L (136-145)
[2020-08-01 06:01] LABS: Band 3 % (5-11); Eosinophils 2 % (0-10); Hemoglobin 9.4 g/dL (14.0-18.0); Lymphocytes 18 % (21-51); MDiff Complete? YES; Mean Corpuscular HGB CONC 32.7 g/dL (32.0-36.0); Mean Corpuscular Volume 97.8 fL (78.0-98.0); Mean Platelet Volume 7.8 fL (7.4-10.4); Monocytes 9 % (0-10); Neutrophil 68 % (42-75); Platelet Count 167 thou/uL (130-400); Platelet Morphology Comment Appears Adequate; Red Blood Cell (RBC) Count 2.94 mill/uL (4.70-6.10); White Blood Cell (WBC) Count 5.2 thou/uL (4.8-10.8)
--- NOTE | 2020-08-01 07:20 | PRG ---
DATE OF SERVICE: 07/31/2020 SUBJECTIVE: Mr. Ayala is a 45-year-old male, who is postop day 4, status post second-look exploratory laparotomy with abdominal closure for ischemic bowel. The patient is on room air and tolerating dialysis. He is ambulating, reporting he spent 2 to 3 hours sitting up in his chair yesterday. He has had one bowel movement since yesterday afternoon, but denies passing any gas. He remains afebrile. His NG tube output was 4 L in the last 24 hours. The patient reports he feels hungry and denies any abdominal pain. OBJECTIVE: VITAL SIGNS: Temperature 97.4, blood pressure 124/75, pulse 88, respirations 16, O2 saturations 96% on room air. GENERAL: A 45-year-old male, lying in bed, in no acute distress. Nontoxic appearing. HEENT: Normocephalic and atraumatic. Trachea is midline. No JVD is appreciated. RESPIRATORY: Equal rise and fall. Bilateral breath sounds are clear to auscultation. CARDIOVASCULAR: Regular rate and rhythm. No murmurs. EXTREMITIES: He does have a fistula. ABDOMEN: Soft with no guarding or rigidity. Midline incision with dry dressing. MUSCULOSKELETAL: Moves all extremities well. PSYCH: Normal mood and affect. NEUROLOGIC: Alert and oriented to person, place, time, and event. GCS is 15. LABORATORY DATA: White count 4.0, hemoglobin 8.3, hematocrit 24.5, platelets 130. Sodium 142, potassium 3.7, BUN 102, creatinine 14.05, bilirubin 1.4. ASSESSMENT: 1. Postoperative day 4, status post second-look exploratory laparotomy with abdominal closure. 2. Ischemic enteritis secondary to small bowel obstruction secondary to intraabdominal adhesions that is grossly improving. No peritonitis today. 3. History of end-stage renal disease, on hemodialysis and stable. 4. Resolved acute distributive shock. PLAN: 1. Continue with trophic feeds at 10 mL/h for 12 hours per day with end goal of 60 mL/h. 2. Keep NG tube in place until NG tube output decreases. Add Protonix b.i.d. 3. Can continue hemodialysis. 4. Continue to work with PT, OT, and continue to increase ambulation. Encourage the patient to spend day walking and sitting up in chair and to only be in bed while napping or going to sleep for the night. The patient was seen and evaluated by Dr. Easton during morning rounds. Discussed plan of care with the patient and family, who are in agreement. Job ID: [id number]
--- NOTE | 2020-08-01 07:28 | PDOC.FM ---
- Subjective Subjective: He was sleeping this morning. He complains of pain over the incision site. Dressing is removed and the tisha are in place with no erythema. He has had decrease in output from yesterday to today of NG tube. - Objective MAR Reviewed: Yes Vital Signs & Weight: Vital Signs (12 hours) Temp Pulse Resp BP BP Pulse Ox 08/01/20 07:07 97.9 F 80 14 115/75 99 08/01/20 03:16 98.5 F 90 16 119/81 98 07/31/20 23:54 97.9 F 82 16 142/89 H 98 07/31/20 21:54 74 125/81 Weight Admit Weight 78.3 kg Weight 73.981 kg Most Recent Monitor Data Heart Rate from ECG 94 NIBP 150/91 NIBP BP-Mean 110 Respiration from ECG 15 SpO2 100 I&O: 07/31/20 08/01/20 08/02/20 06:59 06:59 06:59 Intake Total 1920 750 Output Total 4240 2700 Balance -2319 -1949 Result Diagrams: 08/01/20 05:11 08/01/20 11:52 Phys Exam - Physical Examination Constitutional: NAD HEENT: moist MMs, sclera anicteric Neck: supple Respiratory: no wheezing, no rales, no rhonchi, clear to auscultation bilateral Cardiovascular: RRR, no significant murmur Gastrointestinal: no distention TTP with decrease bowel sounds Musculoskeletal: no edema, pulses present Neurological: moves all 4 limbs Lymphatic: no nodes Psychiatric: normal affect Skin: no rash, normal turgor Dx/Plan (1) Acute adrenal insufficiency Status: Acute (2) Increased anion gap metabolic acidosis Code(s): E87.2 - ACIDOSIS Status: Acute (3) Small bowel obstruction due to adhesions Code(s): K56.50 - INTESTNL ADHESIONS, UNSP TO PARTIAL VERSUS COMPLETE OBST Status: Acute (4) Cardiac arrest Code(s): I46.9 - CARDIAC ARREST, CAUSE UNSPECIFIED Status: Acute (5) Demand ischemia of myocardium Code(s): I24.8 - OTHER FORMS OF ACUTE ISCHEMIC HEART DISEASE Status: Acute (6) ESRD (end stage renal disease) Code(s): N18.6 - END STAGE RENAL DISEASE Status: Acute (7) HTN (hypertension) Code(s): I10 - ESSENTIAL (PRIMARY) HYPERTENSION Status: Chronic Qualifiers: Hypertension type: essential hypertension Qualified Code(s): I10 - Essential (primary) hypertension (8) Seizure disorder Code(s): G40.909 - EPILEPSY, UNSP, NOT INTRACTABLE, WITHOUT STATUS EPILEPTICUS Status: Chronic - Plan Plan: Patient is 45 yo M with PMHx of ESRD who presents with N/V and abdominal pain and s/p ex lap x2 for SBO 1. Small Bowel Obstruction, s/p exploratory laparotomy x 2 -CT abdomen: There are dilated loops of proximal small bowel measuring up to 5.0 cm in size. The colon is decompressed. The distal small bowel loops are decompressed and there is a transition point in the right lower quadrant of the abdomen. -Admission Exam with tenderness and rebound in RLQ -General Surgery, Dr. Easton-consulted from ED & transitioned care to Dr. Garrison overnight, appreciate recs -s/p exploratory laparotomy on 07/[address] Garrison -during operation developed EKG changes with persistent hypotension, left femoral central line placed and did require pressor support with Levophed & Vasopressin until 07/28 -abdominal wound vac placed on 07/26 with 900 mL output in last 24 hours--discontinued after surgery on 07/27 -s/p 2nd exploratory laparotomy with appendectomy on 07/[address] Easton -placed on Cefoxitin through 07/31, discontinued this mornign -placed on Hydrocortisone for suspected acute adrenal insufficiency -continue postop management per trauma surgery team -Trophic feeds started at 10. low phosphorus- nepro -NG tube in place, draining clear green fluid this morning. Drainage has slowed -monitor vitals, I/Os -Pain Control: 07/27 Dilaudid FUR SEWER pump -Zofran for n/v -admission WBC 4.0 > 5.6 -Protonix 2. Elevated Troponin -trop 0.312, likely due to demand ischemia -trended to 0.245 3. Anion Gap Metabolic Acidosis A, will monitor -likely due to ischemia enteritis -AG of 22 on admission (Na 140, Cl 94, Bicarb 24, Albumin 5) 4. ESRD on HD -consult patients electronic engineering draftsperson Dr. Shin, appreciate recs -typically receives M/W/F dialysis -developed hyperkalemia intraop, urgent dialysis on 07/26, otherwise has been following his regular schedule -admission Cr 11.19, BUN 38> trend up to max Cr 14.05 on 07/31 5. Acute Blood Loss Anemia Macrocytic Anemia, chronic -Hgb 11.9, MCV 103 on admission > trended down to Hgb 9.4 this morning -s/p 2 units pRBCs on 07/28 -likely due to chronic kidney disease -is supposed to be taking Retacrit but patient cannot afford so is not taking at home -Dr. Shin to resume Epogen weekly 6. HTN - Meds: Coreg, Lisinopril, Hydralazine, Procardia Code Status: Full Diet: Strict NPO, ice chips allowed Lines: [address], Left Femoral Triple Lumen, Right Forearm 20g IV and Left AV Fistula (dialysis patient) VTE: SCDs GI PPx: IV Protonix PCP: NOHEMI Mejía Dispo: Will consider bp management, but it looks like high blood pressures are trending down. Continue management for SBO according to trauma. Continue HD as scheduled. Addendum - Attending - Attending Attestation Date/Time: 08/01/20 1302 I personally evaluated the patient and discussed the management with Dr. Herrmann. I agree with the History, Examination, Assessment and Plan documented above with any addition or exceptions noted below. management per surgery. BP improved today.
[2020-08-01 07:57] LABS: Glucose 87 mg/dL (70-105); Magnesium 2.3 mg/dL (1.6-2.6); Phosphorus 6.2 mg/dL (2.3-4.7)
[2020-08-01] MEDS: Heparin 5,000 UNITS/ML VIAL SC SCH ×2 (09:12→21:44)
[2020-08-01] MEDS: levETIRAcetam in NS 500 MG in Premix Bag 1 BAG IVPB SCH ×2 (09:12→21:42)
[2020-08-01] MEDS: Polyethylene Glycol 3350 17 GM Packet PO SCH (09:12)
[2020-08-01] MEDS: Pantoprazole 40 MG VIAL IVP SCH ×2 (09:12→21:43)
[2020-08-01] MEDS: Atorvastatin Calcium 40 MG TAB PO SCH (09:13)
[2020-08-01] MEDS: Phenytoin 50 MG Chewable Tablet PO SCH ×3 (09:13→21:44)
[2020-08-01] MEDS: Carvedilol 3.125 MG TAB PO SCH ×2 (09:14→21:44)
[2020-08-01] MEDS: hydrALAZINE 25 MG TAB PO SCH ×3 (09:14→21:45)
[2020-08-01] MEDS: NIFEdipine XL 30 MG TAB PO SCH (09:15)
[2020-08-01] MEDS: Lisinopril 20 MG TAB PO SCH (09:15)
[2020-08-01] MEDS: Dextrose 10% in Water 1,000 ML IV SCH (09:15)
--- NOTE | 2020-08-01 09:56 | PRG ---
DATE OF SERVICE: 08/01/20 SUBJECTIVE: Mr. Ayala is a 45-year-old male with ESRD, was admitted for small-bowel obstruction. He underwent exploratory laparotomy with lysis of adhesions. He is doing better. He is tolerating current dialysis regimen. He underwent hemodialysis yesterday. No new complaints today. OBJECTIVE: VITAL SIGNS: Blood pressure 115/75, heart rate 80, respiratory rate 14, temperature 97.9, and O2 saturation 99% on room air. GENERAL: The patient is awake, alert, comfortable, not in distress. Positive for NG tube. LUNGS: Clear breath sounds. No wheezing. No crackles. HEART: Normal sinus rhythm. No murmurs. No gallops. No rubs. ABDOMEN: Globular, soft, nontender. No masses. EXTREMITIES: No edema. No deformities. MEDICATIONS: Medications of August 01, 2020, reviewed. LABORATORY DATA: Laboratories of August 01, 2020; white count 5.2, hemoglobin 9.4. Sodium 139, potassium 3.6, chloride 98, carbon dioxide 23, BUN 56, creatinine 9.89, calcium 8.6. Repeat phosphorus 6.2, AST 26, ALT 21. ASSESSMENT AND PLAN: 1. Hyperphosphatemia, currently on Nepro. In addition, we will try to lower phosphorus with dialysis. 2. End-stage renal disease, stable. We will continue current Friday, Friday, and Friday hemodialysis. Continue current dialysis regimen. Consider doing a 4- hour hemodialysis treatment in a.m. 3. Anemia, continuing weekly Epogen. 4. Status post exploratory laparotomy for small-bowel obstruction, doing well. Surgery is following. 5. Agree with current management. Job ID: [id number] [facility]
[2020-08-01] MEDS: Acetaminophen/Codeine 30-300mg Tablet PO SCH ×2 (11:53→17:05)
[2020-08-01 12:35] LABS: Glucose 101 mg/dL (70-105)
--- NOTE | 2020-08-01 14:32 | PRG ---
DATE OF SERVICE: 08/01/2020 SUBJECTIVE: Mr. Ayala is a 45-year-old male who is hospital day 7 and postop day 4, status post second-look exploratory laparotomy with abdominal closure for ischemic bowel. The patient is on room air and tolerating dialysis well. He is comfortable lying in bed and denies any abdominal pain. The patient reports he walked up and down the hallway yesterday and spent 3 hours sitting up in his chair. His last bowel movement was on the . The patient reports he has been passing gas since yesterday. The patient's NG tube output was 2.6 L in the last 24 hours and he had regurgitation of 350 mL after clamping. OBJECTIVE: VITAL SIGNS: Temperature 97.9, pulse 80, respirations 14, saturating 99% on room air. Blood pressure 115/75. GENERAL: A 45-year-old male, lying in bed, no acute distress, nontoxic appearing. HEENT: Normocephalic and atraumatic. Trachea is midline. No JVD is appreciated. RESPIRATORY: Equal rise and fall. Bilateral breath sounds are clear to auscultation. CARDIOVASCULAR: Regular rate and rhythm. No murmurs. EXTREMITIES: Does have a fistula. ABDOMEN: Soft with no guarding or rigidity. Midline incision clean and dry and open to air. MUSCULOSKELETAL: Moves all extremities well. PSYCH: Normal mood and affect. NEUROLOGIC: Alert and oriented to person, place, time, and event. GCS is 15. LABORATORY DATA: White blood cell count 5.2, platelets 167, hemoglobin 9.4, hematocrit 28.7. Sodium 139, potassium 3.6, creatinine 9.89, phosphorus 6.2, magnesium 2.3. ASSESSMENT: 1. Postop day 5, status post second-look exploratory laparotomy with abdominal closure. 2. Ischemic enteritis secondary to small bowel obstruction secondary to intraabdominal adhesions that is grossly improving. No peritonitis today. 3. History of end-stage renal disease on hemodialysis, and stable. 4. Resolved acute distributive shock. PLAN: 1. Continue with trophic feeds at 10 mL/h and add a clear liquid to diet. Dr. Easton removed NG tube during rounds today. The patient reports he feels much better. 2. MiraLAX added for bowel regimen as the patient has not had a bowel movement in 2 days though he does report passing gas. 3. Added heparin b.i.d. 4. Discontinue RETORT PRESS OPERATOR and start p.o. Tylenol No. 3 for pain management. Encouraged patient to ask for medicine when he needs it. We will make it a good idea of what he requires for pain management. The patient was seen and evaluated by Dr. Easton during morning rounds. Discussed plan of care with the patient, who is in agreement. Job ID: [id number]
[2020-08-01 17:42] LABS: Glucose 131 mg/dL (70-105)
[2020-08-02] MEDS: Acetaminophen/Codeine 30-300mg Tablet PO SCH ×5 (00:35→23:44)
--- NOTE | 2020-08-02 04:11 | PRG ---
DATE OF SERVICE: 08/01/2020 SUBJECTIVE: The patient was seen this evening during rounds. He was lying in bed, resting comfortably and asleep with no signs of acute distress. Nursing reported no acute events. OBJECTIVE: VITAL SIGNS: Temperature 97.5, pulse 65, respirations 14, oxygen saturation 98% on room air, and blood pressure 110/70. GENERAL: Well-appearing middle-aged male, lying in bed, resting comfortably, and asleep with no signs of acute distress. ASSESSMENT: 1. Status post exploratory laparotomy with small bowel ischemia and lysis of adhesion. 2. Ischemic bowel with septic shock, now resolving. 3. Acute renal insufficiency, stable. 4. History of end-stage renal disease, on dialysis. 5. Diabetes. 6. Hypertension. 7. Seizures. PLAN: Continue current diet and pain regimen. Continue physical and occupational therapy. Continue dialysis per Nephrology. Job ID: [id number]
[2020-08-02 04:43] LABS: Glucose 89 mg/dL (70-105)
[2020-08-02 04:45] LABS: ALT (SGPT) 19 U/L (8-55); AST (SGOT) 27 U/L (5-34); Albumin 2.6 g/dL (3.5-5.0); Alkaline Phosphatase 139 U/L (40-110); Anion Gap 21 mmol/L (10-20); BUN (Urea Nitrogen) 65 mg/dL (8.9-20.6); Bilirubin, Total 1.1 mg/dL (0.2-1.2); Calc. Creatinine Clearance 8 mL/min (70-130); Carbon Dioxide 24 mmol/L (22-29); Chloride 95 mmol/L (98-107); Estimated GFR-MDRD 5; Globulin 3.1 g/dL (2.4-3.5); Glucose 88 mg/dL (70-105); Potassium 3.8 mmol/L (3.5-5.1); Protein, Total 5.7 g/dL (6.0-8.3); Sodium 136 mmol/L (136-145)
[2020-08-02 05:07] LABS: Band 13 % (5-11); Eosinophils 1 % (0-10); Hemoglobin 8.4 g/dL (14.0-18.0); Hypochromia SLIGHT = 6-15 cells (100X) (0-5/hpf); Lymphocytes 16 % (21-51); MDiff Complete? YES; Mean Corpuscular HGB CONC 33.8 g/dL (32.0-36.0); Mean Corpuscular Hemoglobin 33.4 pg (27.0-31.0); Mean Corpuscular Volume 98.6 fL (78.0-98.0); Mean Platelet Volume 7.9 fL (7.4-10.4); Monocytes 6 % (0-10); Neutrophil 64 % (42-75); Platelet Count 162 thou/uL (130-400); Platelet Morphology Comment Appears Adequate; Red Blood Cell (RBC) Count 2.52 mill/uL (4.70-6.10); White Blood Cell (WBC) Count 5.4 thou/uL (4.8-10.8)
[2020-08-02 05:12] LABS: Magnesium 2.3 mg/dL (1.6-2.6); Phosphorus 7.4 mg/dL (2.3-4.7)
--- NOTE | 2020-08-02 07:47 | PDOC.FM ---
- Subjective Subjective: He says he is doing well. Just pain over the incision. His pain management regimen was changed yesterday. - Objective MAR Reviewed: Yes Vital Signs & Weight: Vital Signs (12 hours) Temp Pulse Resp BP BP Pulse Ox 08/02/20 03:12 97.5 F L 65 14 110/73 98 08/01/20 23:33 97.9 F 67 16 100/64 99 08/01/20 21:45 77 106/62 Weight Admit Weight 78.3 kg Weight 73.981 kg Most Recent Monitor Data Heart Rate from ECG 94 NIBP 150/91 NIBP BP-Mean 110 Respiration from ECG 15 SpO2 100 I&O: 08/01/20 08/02/20 08/03/20 06:59 06:59 06:59 Intake Total 750 1380 Output Total 2700 Balance -1950 1380 Result Diagrams: 08/02/20 04:10 08/02/20 11:40 Phys Exam - Physical Examination Constitutional: NAD HEENT: moist MMs, sclera anicteric Neck: no nodes, supple Respiratory: no wheezing, no rales, no rhonchi, clear to auscultation bilateral Cardiovascular: RRR, no significant murmur Gastrointestinal: soft, non-tender, positive bowel sounds Musculoskeletal: no edema, pulses present Neurological: moves all 4 limbs Lymphatic: no nodes Psychiatric: normal affect Skin: no rash, normal turgor Dx/Plan (1) Acute adrenal insufficiency Status: Acute (2) Increased anion gap metabolic acidosis Code(s): E87.2 - ACIDOSIS Status: Acute (3) Small bowel obstruction due to adhesions Code(s): K56.50 - INTESTNL ADHESIONS, UNSP TO PARTIAL VERSUS COMPLETE OBST Status: Acute (4) Cardiac arrest Code(s): I46.9 - CARDIAC ARREST, CAUSE UNSPECIFIED Status: Acute (5) Demand ischemia of myocardium Code(s): I24.8 - OTHER FORMS OF ACUTE ISCHEMIC HEART DISEASE Status: Acute (6) ESRD (end stage renal disease) Code(s): N18.6 - END STAGE RENAL DISEASE Status: Acute (7) HTN (hypertension) Code(s): I10 - ESSENTIAL (PRIMARY) HYPERTENSION Status: Chronic Qualifiers: Hypertension type: essential hypertension Qualified Code(s): I10 - Essential (primary) hypertension (8) Seizure disorder Code(s): G40.909 - EPILEPSY, UNSP, NOT INTRACTABLE, WITHOUT STATUS EPILEPTICUS Status: Chronic - Plan Plan: Patient is 45 yo M with PMHx of ESRD who presents with N/V and abdominal pain and s/p ex lap x2 for SBO 1. Small Bowel Obstruction, s/p exploratory laparotomy x 2 -CT abdomen: There are dilated loops of proximal small bowel measuring up to 5.0 cm in size. The colon is decompressed. The distal small bowel loops are decompressed and there is a transition point in the right lower quadrant of the abdomen. -Admission Exam with tenderness and rebound in RLQ -General Surgery, Dr. Easton-consulted from ED & transitioned care to Dr. Garrison overnight, appreciate recs -s/p exploratory laparotomy on 07/[address] Garrison -during operation developed EKG changes with persistent hypotension, left femoral central line placed and did require pressor support with Levophed & Vasopressin until 07/28 -abdominal wound vac placed on 07/26 with 900 mL output in last 24 hours--discontinued after surgery on 07/27 -s/p 2nd exploratory laparotomy with appendectomy on 07/[address] Easton -placed on Cefoxitin through 07/31, discontinued this mornign -placed on Hydrocortisone for suspected acute adrenal insufficiency -continue postop management per trauma surgery team -Trophic feeds started at 10. low phosphorus- nepro -NG d/c 08/01 -monitor vitals, I/Os -Pain Control: 07/27-08/01 Dilaudid LOG PEELER pump, now on Tylenol 3 -Zofran for n/v -admission WBC 4.0 > 5.4 -Protonix 2. Elevated Troponin -trop 0.312, likely due to demand ischemia -trended to 0.245 3. Anion Gap Metabolic Acidosis A, will monitor -likely due to ischemia enteritis -AG of 22 on admission (Na 140, Cl 94, Bicarb 24, Albumin 5) 4. ESRD on HD -consult patients customer account coordinator Dr. Shin, appreciate recs -typically receives M/W/F dialysis -developed hyperkalemia intraop, urgent dialysis on 07/26, otherwise has been following his regular schedule -admission Cr 11.19, BUN 38> trend up to max Cr 14.05 on 07/31 5. Acute Blood Loss Anemia Macrocytic Anemia, chronic -Hgb 11.9, MCV 103 on admission > trended down to Hgb 9.4 this morning -s/p 2 units pRBCs on 07/28 -likely due to chronic kidney disease -is supposed to be taking Retacrit but patient cannot afford so is not taking at home -Dr. Shin to resume Epogen weekly 6. HTN - Meds: Coreg, Lisinopril, Hydralazine, Procardia Code Status: Full Diet: Liquids with [place] feeds VTE: SCDs GI PPx: IV Protonix PCP: NOHEMI Mejía Dispo: Will continue to monitor. No changes today. Continue PT/OT. Addendum - Attending - Attending Attestation Date/Time: 08/02/20 1302 I personally evaluated the patient and discussed the management with Dr. Herrmann. I agree with the History, Examination, Assessment and Plan documented above with any addition or exceptions noted below. advancing diet per surgery. HD per nephro.
--- NOTE | 2020-08-02 09:26 | PRG ---
DATE OF SERVICE: 08/02/2020 SUBJECTIVE: Mr. Ayala is a 45-year-old male with ESRD and currently on maintenance hemodialysis. Mr. Ayala was admitted for small bowel obstruction and underwent exploratory laparotomy with lysis. He is doing better. They have started feeding him with clear liquids. No acute events noted last night. No chest pain or shortness of breath. OBJECTIVE: VITAL SIGNS: Blood pressure 106/66, heart rate 75, respiratory rate 18, temperature 98.6, and O2 saturation 96%. GENERAL: The patient is awake, alert, comfortable, not in distress. SKIN: Adequate turgor. HEENT: Slightly pale conjunctivae. Anicteric sclerae. NECK: No neck mass. No carotid bruits. No JVD. CHEST: No deformities. LUNGS: Decreased breath sounds. HEART: Normal sinus rhythm. No murmurs. No gallops. No rubs. ABDOMEN: Globular, soft, and nontender. No masses. Positive for surgical scars. EXTREMITIES: No edema. MEDICATIONS: Of August 02, 2020, was reviewed. LABORATORY DATA: Laboratories of August 02, 2020; white count 5.4, hemoglobin 8.4. Sodium 136, potassium 3.8, chloride 95, carbon dioxide 24, BUN 65, creatinine 11.64, and calcium 8. AST 27, ALT 19, alkaline phosphatase 139, phosphorus is noted to be at 7.4. ASSESSMENT AND PLAN: 1. Anemia. Continuing weekly Epogen. 2. Hyperphosphatemia - consider starting the patient on Renvela 800 mg one tablet t.i.d. with meals. 3. End-stage renal disease, stable. We will continue current Friday, Friday, and Friday hemodialysis. We will plan to do a 3-hour hemodialysis with this patient today. Fluid removal will be done only as tolerated by the patient. Recheck CBC and basic metabolic panel in a.m. Job ID: [id number]
[2020-08-02 11:04] VITALS: BMI 24.0
[2020-08-02 12:29] LABS: Glucose 80 mg/dL (70-105)
[2020-08-02] MEDS: Sevelamer Carbonate 800 MG TAB PO SCH ×3 (14:45→17:44)
[2020-08-02] MEDS: hydrALAZINE 25 MG TAB PO SCH ×2 (14:46→21:29)
[2020-08-02] MEDS: Heparin 5,000 UNITS/ML VIAL SC SCH ×2 (14:46→21:07)
[2020-08-02] MEDS: Carvedilol 3.125 MG TAB PO SCH ×2 (14:46→21:29)
[2020-08-02] MEDS: Atorvastatin Calcium 40 MG TAB PO SCH (14:46)
[2020-08-02] MEDS: Phenytoin 50 MG Chewable Tablet PO SCH ×3 (14:47→21:07)
[2020-08-02] MEDS: NIFEdipine XL 30 MG TAB PO SCH (14:47)
[2020-08-02] MEDS: Lisinopril 20 MG TAB PO SCH (14:47)
[2020-08-02] MEDS: Pantoprazole 40 MG VIAL IVP SCH ×2 (14:47→21:08)
[2020-08-02] MEDS: levETIRAcetam in NS 500 MG in Premix Bag 1 BAG IVPB SCH ×2 (14:47→21:07)
[2020-08-02] MEDS: Polyethylene Glycol 3350 17 GM Packet PO SCH (14:48)
[2020-08-02] MEDS: Acetaminophen/Codeine 30-300mg Tablet PO PRN ×2 (14:51→21:20)
--- NOTE | 2020-08-03 02:41 | PRG ---
DATE OF SERVICE: 08/02/2020 SUBJECTIVE: The patient was seen this evening during rounds. He was lying in bed, resting comfortably and asleep with no signs of acute distress. Nursing reported no acute events. OBJECTIVE: VITAL SIGNS: Temperature 98.2, pulse 72, respirations 18, oxygen saturation 98% on room air, and blood pressure 104/69. ASSESSMENT: 1. Status post ischemic bowel with resection, now postop day #7. 2. Acute adrenal insufficiency, stable. 3. History of end-stage renal disease on dialysis, diabetes, hypertension, seizures. PLAN: Continue current diet and pain regimen. Continue physical and occupational therapy. The patient likely ready for discharge home soon. Job ID: [id number]
[2020-08-03 05:10] LABS: ALT (SGPT) 16 U/L (8-55); AST (SGOT) 23 U/L (5-34); Albumin 2.7 g/dL (3.5-5.0); Alkaline Phosphatase 150 U/L (40-110); Anion Gap 16 mmol/L (10-20); BUN (Urea Nitrogen) 30 mg/dL (8.9-20.6); Bilirubin, Total 0.8 mg/dL (0.2-1.2); Calc. Creatinine Clearance 13 mL/min (70-130); Calcium 8.2 mg/dL (7.8-10.44); Carbon Dioxide 29 mmol/L (22-29); Chloride 97 mmol/L (98-107); Estimated GFR-MDRD 8; Globulin 3.3 g/dL (2.4-3.5); Glucose 81 mg/dL (70-105); Magnesium 2.1 mg/dL (1.6-2.6); Potassium 3.6 mmol/L (3.5-5.1); Sodium 138 mmol/L (136-145)
[2020-08-03 05:18] LABS: Band 5 % (5-11); Eosinophils 2 % (0-10); Hemoglobin 8.9 g/dL (14.0-18.0); Lymphocytes 28 % (21-51); MDiff Complete? YES; Mean Corpuscular HGB CONC 31.3 g/dL (32.0-36.0); Mean Corpuscular Hemoglobin 31.2 pg (27.0-31.0); Mean Corpuscular Volume 99.6 fL (78.0-98.0); Mean Platelet Volume 7.7 fL (7.4-10.4); Monocytes 3 % (0-10); Neutrophil 62 % (42-75); Platelet Count 214 thou/uL (130-400); Platelet Morphology Comment Appears Adequate; RBC Distribution Width 15.1 % (11.5-14.5); Red Blood Cell (RBC) Count 2.84 mill/uL (4.70-6.10); White Blood Cell (WBC) Count 6.7 thou/uL (4.8-10.8)
[2020-08-03 05:24] LABS: Glucose 80 mg/dL (70-105)
[2020-08-03] MEDS: Acetaminophen/Codeine 30-300mg Tablet PO SCH ×3 (05:31→18:44)
--- NOTE | 2020-08-03 06:26 | PRG ---
DATE OF SERVICE: 08/02/2020 SUBJECTIVE: Mr. Ayala is a 45-year-old male, hospital day #8, postop day #5, status post second-look exploratory laparotomy with abdominal closure for ischemic bowel. The patient is on room air and tolerating dialysis well. He reports he is weak today because he did not eat breakfast before coming to dialysis because he was sleeping and did not realize it had been delivered. The patient reports he has been passing gas since yesterday afternoon. He did have a loose liquid stool yesterday as well. The patient said his pain is well controlled and places it at a 2/10 to 3/10 at this time. OBJECTIVE: VITAL SIGNS: Temperature 98.6, pulse 75, respirations 18, O2 saturation 96% on room air, and blood pressure 106/66. GENERAL: A 45-year-old male, lying in dialysis bed, in no acute distress. Nontoxic appearing. HEENT: Normocephalic and atraumatic. RESPIRATORY: Equal rise and fall. Clear bilateral breath sounds. CARDIOVASCULAR: Regular rate and rhythm. No murmurs. EXTREMITIES: Does have a fistula. ABDOMEN: Soft with no guarding or rigidity. Midline incision clean and dry and open to air. MUSCULOSKELETAL: Moves all extremities well. PSYCHIATRIC: Normal mood and affect. NEUROLOGIC: Alert, oriented to person, place, time, and event. GCS is 15. LABORATORY DATA: White count 5.4, hemoglobin 8.4, hematocrit 24.8, and platelets 162. Sodium 136, potassium 3.8, phosphorus 7.4, magnesium 2.3, and creatinine 11.64. ASSESSMENT: 1. Postop day #6 status post second-look exploratory laparotomy with abdominal closure. 2. Ischemic enteritis secondary to small bowel obstruction secondary to intraabdominal adhesions that are grossly normal. No peritonitis today. 3. History of end-stage renal disease, on hemodialysis, stable. 4. Resolved acute distributive shock. PLAN: 1. Since the patient is passing gas, we will advance diet to regular and remove NG tube. 2. Restart the patient's home Renvela due to phosphate level of 7.4. 3. Dr. Easton plans to see the patient today or tomorrow to remove his femoral line. 4. Continue Tylenol 3 for pain management. The patient was seen and evaluated by Dr. Easton during morning rounds. Discussed plan of care with the patient who is in agreement. Job ID: [id number]
--- NOTE | 2020-08-03 06:54 | PDOC.FM ---
- Subjective Subjective: He says he ate well and had no issues. He had a BM last night and he is passing gas. He says he is up walking around more. - Objective MAR Reviewed: Yes Vital Signs & Weight: Vital Signs (12 hours) Temp Pulse Resp BP Pulse Ox 08/03/20 03:30 98.1 F 75 19 103/71 99 08/02/20 23:38 98.2 F 72 18 104/69 97 08/02/20 19:10 98.2 F 76 18 105/70 96 Weight Admit Weight 78.3 kg Weight 73.981 kg Most Recent Monitor Data Heart Rate from ECG 94 NIBP 150/91 NIBP BP-Mean 110 Respiration from ECG 15 SpO2 100 I&O: 08/01/20 08/02/20 08/03/20 06:59 06:59 06:59 Intake Total 750 1380 240 Output Total 2700 0 Balance -1950 1380 240 Result Diagrams: 08/03/20 04:30 08/03/20 04:30 Phys Exam - Physical Examination Constitutional: NAD HEENT: moist MMs, sclera anicteric Neck: no nodes, supple Respiratory: no wheezing, no rales, no rhonchi, clear to auscultation bilateral Cardiovascular: RRR, no significant murmur Gastrointestinal: soft, no distention, positive bowel sounds Musculoskeletal: no edema, pulses present Neurological: moves all 4 limbs Lymphatic: no nodes Psychiatric: normal affect Skin: normal turgor Dx/Plan (1) Acute adrenal insufficiency Status: Acute (2) Increased anion gap metabolic acidosis Code(s): E87.2 - ACIDOSIS Status: Acute (3) Small bowel obstruction due to adhesions Code(s): K56.50 - INTESTNL ADHESIONS, UNSP TO PARTIAL VERSUS COMPLETE OBST Status: Acute (4) Cardiac arrest Code(s): I46.9 - CARDIAC ARREST, CAUSE UNSPECIFIED Status: Acute (5) Demand ischemia of myocardium Code(s): I24.8 - OTHER FORMS OF ACUTE ISCHEMIC HEART DISEASE Status: Acute (6) ESRD (end stage renal disease) Code(s): N18.6 - END STAGE RENAL DISEASE Status: Acute (7) HTN (hypertension) Code(s): I10 - ESSENTIAL (PRIMARY) HYPERTENSION Status: Chronic Qualifiers: Hypertension type: essential hypertension Qualified Code(s): I10 - Essential (primary) hypertension (8) Seizure disorder Code(s): G40.909 - EPILEPSY, UNSP, NOT INTRACTABLE, WITHOUT STATUS EPILEPTICUS Status: Chronic - Plan Plan: Patient is 45 yo M with PMHx of ESRD who presents with N/V and abdominal pain and s/p ex lap x2 for SBO 1. Small Bowel Obstruction, s/p exploratory laparotomy x 2 -CT abdomen: There are dilated loops of proximal small bowel measuring up to 5.0 cm in size. The colon is decompressed. The distal small bowel loops are decompressed and there is a transition point in the right lower quadrant of the abdomen. -Admission Exam with tenderness and rebound in RLQ -General Surgery, Dr. Easton-consulted from ED & transitioned care to Dr. Garrison overnight, appreciate recs -s/p exploratory laparotomy on 07/[address] Garrison -during operation developed EKG changes with persistent hypotension, left femoral central line placed and did require pressor support with Levophed & Vasopressin until 07/28 -abdominal wound vac placed on 07/26 with 900 mL output in last 24 hours--discontinued after surgery on 07/27 -s/p 2nd exploratory laparotomy with appendectomy on 07/[address] Easton -placed on Cefoxitin through 07/31, discontinued this mornign -placed on Hydrocortisone for suspected acute adrenal insufficiency -continue postop management per trauma surgery team -NG d/c 08/01 & 08/02 -monitor vitals, I/Os -Pain Control: 07/27-08/01 Dilaudid CORSET FITTER pump, now on Tylenol 3 -Zofran for n/v -admission WBC 4.0 > 6.7 -Protonix 2. Elevated Troponin -trop 0.312, likely due to demand ischemia -trended to 0.245 3. Anion Gap Metabolic Acidosis, Resolved A, will monitor -likely due to ischemia enteritis -AG of 22 on admission (Na 140, Cl 94, Bicarb 24, Albumin 5) 4. ESRD on HD -consult patients tumbler dyeing machine operator Dr. Shin, appreciate recs -typically receives M/W/F dialysis -developed hyperkalemia intraop, urgent dialysis on 07/26, otherwise has been following his regular schedule -admission Cr 11.19, BUN 38> trend up to max Cr 14.05 on 07/31 -Started Renvela yesterday for elevated phos 5. Acute Blood Loss Anemia Macrocytic Anemia, chronic -Hgb 11.9, MCV 103 on admission > trended down to Hgb 8.9 this morning -s/p 2 units pRBCs on 07/28 -likely due to chronic kidney disease -is supposed to be taking Retacrit but patient cannot afford so is not taking at home -Dr. Shin to resume Epogen weekly 6. HTN - Meds: Coreg, Lisinopril, Hydralazine, Procardia Code Status: Full Diet: Regular VTE: SCDs GI PPx: IV Protonix PCP: NOHEMI Mejía Dispo: Will continue to monitor. Continue PT/OT. Started on regular diet yesterday. Orders for placement in, pending surgery recs. Addendum - Attending - Attending Attestation Date/Time: 08/03/20 5031 I personally evaluated the patient and discussed the management with Dr. Herrmann. I agree with the History, Examination, Assessment and Plan documented above with any addition or exceptions noted below. post acute care screen today. per surgery, d/c in the next 1-2 days.
[2020-08-03] MEDS: Carvedilol 3.125 MG TAB PO SCH ×2 (08:25→20:05)
[2020-08-03] MEDS: Atorvastatin Calcium 40 MG TAB PO SCH (08:25)
[2020-08-03] MEDS: Sevelamer Carbonate 800 MG TAB PO SCH ×3 (08:25→17:06)
[2020-08-03] MEDS: Heparin 5,000 UNITS/ML VIAL SC SCH ×2 (08:25→20:05)
[2020-08-03] MEDS: Phenytoin 50 MG Chewable Tablet PO SCH ×3 (08:26→20:05)
[2020-08-03] MEDS: Polyethylene Glycol 3350 17 GM Packet PO SCH (08:26)
[2020-08-03] MEDS: Pantoprazole 40 MG VIAL IVP SCH (08:27)
[2020-08-03] MEDS: levETIRAcetam in NS 500 MG in Premix Bag 1 BAG IVPB SCH (08:27)
[2020-08-03] MEDS: Lisinopril 20 MG TAB PO SCH (09:02)
[2020-08-03] MEDS: NIFEdipine XL 30 MG TAB PO SCH (09:02)
[2020-08-03] MEDS: hydrALAZINE 25 MG TAB PO SCH ×3 (09:02→20:06)
--- NOTE | 2020-08-03 09:58 | PRG ---
DATE OF SERVICE: 08/03/2020 SUBJECTIVE: Mr. Ayala is a 45-year-old male with ESRD, on maintenance hemodialysis, who was admitted for small bowel obstruction. He underwent exploratory laparotomy with lysis of adhesions. We are following him up for his maintenance hemodialysis management of his ESRD. He has been tolerating hemodialysis. He underwent dialysis yesterday without any complications. He voices no new complaints today. He has NG tube has been pulled out. He is now tolerating p.o. No complaints of chest pain or shortness of breath. OBJECTIVE: VITAL SIGNS: Blood pressure 110/73, heart rate 79, respiratory rate 16, temperature 98.4, and O2 saturation 100% on room air. GENERAL: The patient is awake, alert, comfortable, not in distress. SKIN: Adequate turgor. HEENT: He has slightly pale conjunctivae. Anicteric sclerae. NECK: No neck mass. No carotid bruits. No JVD. CHEST: No deformities. LUNGS: Clear breath sounds. No wheezing. No crackles. HEART: Normal sinus rhythm. No murmurs. No gallops. No rubs. ABDOMEN: Globular, soft, and nontender. No masses. Positive for surgical scar. EXTREMITIES: No edema. No deformities. MEDICATIONS: Of August 03, 2020, reviewed. LABORATORY DATA: Laboratories of August 03, 2020; white count 6.7, hemoglobin 8.9. Sodium 138, potassium 3.6, chloride 97, carbon dioxide 29, BUN 30, creatinine 7.76, magnesium 2.1, and phosphorus is 6.0. Albumin 2.7. ASSESSMENT AND PLAN: 1. Hyperphosphatemia, improving. The patient has been started on phosphate binders. 2. End-stage renal disease, stable, continuing Friday, Friday, and Friday dialysis. I do not find any indication of dialysis today. Potassium is noted to be within normal and this patient is not volume overloaded. 3. Anemia. Continuing weekly Epogen. 4. Status post exploratory laparotomy for small bowel obstruction. Doing well, tolerating p.o. Agree with current management. Job ID: [id number]
[2020-08-03] MEDS: Acetaminophen/Codeine 30-300mg Tablet PO PRN (14:58)
[2020-08-03] MEDS: levETIRAcetam 500 MG TAB PO SCH (20:05)
--- NOTE | 2020-08-04 00:22 | PRG ---
DATE OF SERVICE: 08/03/2020 SUBJECTIVE: The patient was seen this evening during rounds. He was lying in bed, resting comfortably, and asleep with no signs of acute distress. Nursing reported no acute events. OBJECTIVE: VITAL SIGNS: Temperature 97.4, pulse 73, respirations 19, oxygen saturation 100% on room air, and blood pressure 125/77. ASSESSMENT: 1. Postop day seven, status post exploratory laparotomy, adhesiolysis, appendectomy, and small-bowel resection due to ischemic bowel. 2. Acute adrenal insufficiency, resolved. 3. History of end-stage renal disease, on dialysis, diabetes, hypertension, seizures. PLAN: Continue current diet and pain regimen. Continue physical and occupational therapy. Trauma Team to remove tisha tomorrow and likely discharge home. Job ID: [id number] MTDD
[2020-08-04] MEDS: Acetaminophen/Codeine 30-300mg Tablet PO SCH ×5 (01:04→23:41)
--- NOTE | 2020-08-04 05:51 | PDOC.FM ---
- Subjective Subjective: Patient reports that he is doing well. He is tolerating PO intake, passing gas, having BMs, and ambulating frequently. Denies N/V, abdominal pain, SOB, CP. Denies questions or concerns this morning. - Objective MAR Reviewed: Yes Vital Signs & Weight: Vital Signs (12 hours) Temp Pulse Resp BP Pulse Ox 08/04/20 04:33 98.0 F 87 19 104/69 96 08/04/20 00:20 98.1 F 70 19 104/69 94 L 08/03/20 20:06 73 08/03/20 20:00 100 08/03/20 19:42 97.4 F L 73 19 125/77 100 Weight Admit Weight 78.3 kg Weight 73.981 kg Most Recent Monitor Data Heart Rate from ECG 94 NIBP 150/91 NIBP BP-Mean 110 Respiration from ECG 15 SpO2 100 I&O: 08/02/20 08/03/20 08/04/20 06:59 06:59 06:59 Intake Total 1380 240 Output Total 0 Balance 1380 240 Result Diagrams: 08/04/20 05:43 08/04/20 11:30 Phys Exam - Physical Examination Constitutional: NAD HEENT: moist MMs Neck: supple, full ROM Respiratory: no wheezing, no rales, no rhonchi, clear to auscultation bilateral Cardiovascular: RRR, no significant murmur Gastrointestinal: soft, non-tender midline incision dry, clean, and intact; tisha present Musculoskeletal: no edema Neurological: non-focal, moves all 4 limbs Psychiatric: normal affect Skin: no rash Dx/Plan - Plan Plan: Small Bowel Obstruction, s/p exploratory laparotomy x 2 -CT abdomen: There are dilated loops of proximal small bowel measuring up to 5.0 cm in size. The colon is decompressed. The distal small bowel loops are decompressed and there is a transition point in the right lower quadrant of the abdomen. -Admission Exam with tenderness and rebound in RLQ -General Surgery, Dr. Easton-consulted from ED & transitioned care to Dr. Garrison overnight, appreciate recs -s/p exploratory laparotomy on 07/[address] Garrison -during operation developed EKG changes with persistent hypotension, left femoral central line placed and did require pressor support with Levophed & Vasopressin until 07/28, femoral line removed on 08/03 -abdominal wound vac placed on 07/26 with 900 mL output in last 24 hours--discontinued after surgery on 07/27 -s/p 2nd exploratory laparotomy with appendectomy on 07/[address] Easton -placed on Cefoxitin through 07/31, discontinued this mornign -placed on Hydrocortisone for suspected acute adrenal insufficiency -continue postop management per trauma surgery team -NG d/c 08/01 & 08/02 -monitor vitals, I/Os -Pain Control: 07/27-08/01 Dilaudid SPEECH PATHOLOGY ASSISTANT pump, now on Tylenol 3 -Zofran for n/v -admission WBC 4.0 > 6.7 -Protonix -tolerating PO intake, passing gas/having BMs -will contact Dr. Easton's team and CM regarding discharge Elevated Troponin -trop 0.312, likely due to demand ischemia -trended to 0.245 Anion Gap Metabolic Acidosis, Resolved A, will monitor -likely due to ischemia enteritis -AG of 22 on admission (Na 140, Cl 94, Bicarb 24, Albumin 5) ESRD on HD -consult patients electronic systems technician Dr. Shin, appreciate recs -typically receives M/W/F dialysis -developed hyperkalemia intraop, urgent dialysis on 07/26, otherwise has been following his regular schedule -admission Cr 11.19, BUN 38> trend up to max Cr 14.05 on 07/31 -Started Renvela for elevated phos -due for dialysis today Acute Blood Loss Anemia -Macrocytic Anemia, chronic -Hgb 11.9, MCV 103 on admission > trended down to Hgb 9.1 this morning -s/p 2 units pRBCs on 07/28 -likely due to chronic kidney disease -is supposed to be taking Retacrit but patient cannot afford so is not taking at home -Dr. Shin to resume Epogen weekly HTN - Meds: Coreg, Lisinopril, Hydralazine, Procardia Dispo: Orders for placement in, pending surgery recs. Addendum - Attending - Attending Attestation Date/Time: 08/04/20 1320 I personally evaluated the patient and discussed the management with Dr. Garcia. I agree with the History, Examination, Assessment and Plan documented above with any addition or exceptions noted below. Attempting to arrange Rehab. If denied then HH w/ PT.
[2020-08-04 05:52] LABS: #Eosinphils 0.1 thou/uL (0.0-0.7); #Lymphocytes 1.3 thou/uL (1.20-3.40); #Monocytes 0.5 thou/uL (0.11-0.59); #Neutrophils 7.4 thou/uL (1.40-6.50); %Basophils 0.1 % (0.0-1.0); %Eosinophils 0.6 % (0.0-10.0); %Lymphocytes 13.8 % (21.0-51.0); %Monocytes 5.6 % (0.0-10.0); %Neutrophils 79.8 % (42.0-75.0); Hemoglobin 9.1 g/dL (14.0-18.0); Mean Corpuscular HGB CONC 33.3 g/dL (32.0-36.0); Mean Corpuscular Hemoglobin 33.2 pg (27.0-31.0); Mean Corpuscular Volume 99.9 fL (78.0-98.0); Mean Platelet Volume 7.3 fL (7.4-10.4); Platelet Count 208 thou/uL (130-400); RBC Distribution Width 14.7 % (11.5-14.5); Red Blood Cell (RBC) Count 2.73 mill/uL (4.70-6.10); White Blood Cell (WBC) Count 9.2 thou/uL (4.8-10.8)
[2020-08-04 06:14] LABS: ALT (SGPT) 15 U/L (8-55); AST (SGOT) 22 U/L (5-34); Albumin 2.7 g/dL (3.5-5.0); Alkaline Phosphatase 126 U/L (40-110); Anion Gap 18 mmol/L (10-20); BUN (Urea Nitrogen) 42 mg/dL (8.9-20.6); Bilirubin, Total 0.6 mg/dL (0.2-1.2); Calc. Creatinine Clearance 9 mL/min (70-130); Calcium 8.1 mg/dL (7.8-10.44); Carbon Dioxide 27 mmol/L (22-29); Chloride 94 mmol/L (98-107); Estimated GFR-MDRD 5; Globulin 3.3 g/dL (2.4-3.5); Glucose 81 mg/dL (70-105); Glucose 84 mg/dL (70-105); Potassium 4.2 mmol/L (3.5-5.1); Sodium 135 mmol/L (136-145)
[2020-08-04 07:06] LABS: Magnesium 2.1 mg/dL (1.6-2.6); Phosphorus 6.9 mg/dL (2.3-4.7)
[2020-08-04] MEDS: levETIRAcetam 500 MG TAB PO SCH ×2 (09:01→21:17)
[2020-08-04] MEDS: Atorvastatin Calcium 40 MG TAB PO SCH (09:01)
[2020-08-04] MEDS: Phenytoin 50 MG Chewable Tablet PO SCH ×3 (09:01→21:17)
[2020-08-04] MEDS: Sevelamer Carbonate 800 MG TAB PO SCH ×3 (09:01→16:43)
[2020-08-04] MEDS: Carvedilol 3.125 MG TAB PO SCH ×2 (09:02→23:36)
[2020-08-04] MEDS: NIFEdipine XL 30 MG TAB PO SCH (09:02)
[2020-08-04] MEDS: Polyethylene Glycol 3350 17 GM Packet PO SCH (09:02)
[2020-08-04] MEDS: Lisinopril 20 MG TAB PO SCH (09:02)
[2020-08-04] MEDS: hydrALAZINE 25 MG TAB PO SCH ×3 (09:02→23:36)
[2020-08-04] MEDS: Heparin 5,000 UNITS/ML VIAL SC SCH ×2 (09:03→21:17)
--- NOTE | 2020-08-04 09:09 | PRG ---
DATE OF SERVICE: 08/04/2020 SUBJECTIVE: Mr. Ayala is a 45-year-old male with ESRD, was admitted for small-bowel obstruction. He underwent an exploratory laparotomy with lysis of adhesions. He is doing well. He is currently tolerating p.o. He is scheduled for his regular hemodialysis today. He denies any chest pain or shortness of breath. OBJECTIVE: VITAL SIGNS: Blood pressure 110/72, heart rate 82, respiratory rate 16, temperature 98.3, O2 saturation 96%. GENERAL: The patient is awake, comfortable, not in distress. SKIN: Adequate turgor. HEENT: He has slightly pale conjunctivae. Anicteric sclerae. NECK: No neck mass. No carotid bruits. No JVD. CHEST: No deformities. LUNGS: Clear breath sounds. HEART: Normal sinus rhythm. No murmur. No gallops. No rubs. ABDOMEN: Globular, soft, nontender. No masses. EXTREMITIES: No edema, no deformities. MEDICATIONS: August 04, 2020, reviewed. LABORATORY DATA: August 04, 2020; white count 9.2, hemoglobin 9.1. Sodium 135, potassium 4.2, chloride 94, carbon dioxide 27, BUN 42, creatinine 10.6, glucose 84, calcium 8.1, AST 22, ALT 15, albumin 2.7, phosphorus 6.9. ASSESSMENT AND PLAN: 1. Hyperphosphatemia. Continue phosphate binders. Hemodialysis today. 2. End-stage renal disease, stable. We will continue current Friday, Friday, and Friday dialysis regimen. 3. We will do a 3.5 hour dialysis for this patient. 4. Anemia. Continue weekly Epogen. 5. Status post exploratory laparotomy for small-bowel obstruction. Doing well, tolerating p.o. Recheck CBC and basic metabolic profile in a.m. Job ID: [id number]
[2020-08-04 12:21] LABS: Glucose 139 mg/dL (70-105)
--- NOTE | 2020-08-04 13:48 | PRG ---
DATE OF SERVICE: 08/03/2020 SUBJECTIVE: Mr. Ayala is a 45-year-old male, hospital day 9, postop day 7, status post second-look exploratory laparotomy with abdominal closure for ischemic bowel. The patient is on room air and tolerated dialysis well yesterday. He reports he is tired today, but tolerated a regular diet, breakfast well. He had 2 bowel movements yesterday. He reports his pain is well controlled. OBJECTIVE: VITAL SIGNS: Temperature 98, pulse 75, respirations 16, O2 saturation 98 on room air, and blood pressure 108/71. GENERAL: A 45-year-old male, lying in bed, no acute distress. Nontoxic appearing. HEENT: Head is normocephalic and atraumatic. RESPIRATORY: Equal rise and fall. Clear bilateral breath sounds. CARDIOVASCULAR: Regular rate and rhythm. No murmurs. EXTREMITIES: Moving all extremities well. ABDOMEN: Soft with no guarding or rigidity. Midline incision clean and dry and open to air. PSYCHIATRIC: Normal mood and affect. NEUROLOGIC: Alert and oriented x3. GCS is 15. LABORATORY DATA: White count is 6.7, hemoglobin is 8.9, hematocrit is 28.3, and platelet count is 214. Sodium is 138, potassium is 3.6, and creatinine is 7.76. Phosphorus is 6, which is an improvement from 7.4 yesterday. Magnesium is 2.1. ASSESSMENT: 1. Postop day 7, status post second-look exploratory laparotomy with abdominal closure. 2. Ischemic enteritis secondary to small bowel obstruction secondary to intraabdominal adhesions that are grossly normal. 3. History of end-stage renal disease, on hemodialysis and stable. 4. Resolved acute distributive shock. PLAN: 1. Remove the patient's femoral central line today. 2. Discontinue IV Protonix as the patient has been advanced to regular diet. We will give the patient one day of p.o. Protonix. If tolerating diet well, we will discontinue tomorrow. 3. Plan to remove the patient's tisha tomorrow and follow up with Dr. Easton in clinic in 2 weeks. 4. The patient is stable and should be ready for discharge tomorrow. The patient was seen and evaluated by Dr. Easton during morning rounds. Discussed plan of care with the patient, who is in agreement. Job ID: [id number]
[2020-08-04 17:46] LABS: Glucose 99 mg/dL (70-105)
[2020-08-04 21:07] LABS: Glucose 152 mg/dL (70-105)
--- NOTE | 2020-08-05 06:19 | PDOC.FM ---
- Subjective Subjective: No acute events overnight. BM x2 overnight. Tolerating PO, ambulating. Denies CP, SOB, Abdominal Pain. Awaiting inpatient rehab. - Objective MAR Reviewed: Yes Vital Signs & Weight: Vital Signs (12 hours) Temp Pulse Resp BP Pulse Ox 08/05/20 04:13 99.1 F 90 18 93/60 95 08/05/20 00:20 99.3 F 96 18 95/62 97 08/04/20 23:36 99 08/04/20 21:40 97/61 08/04/20 21:15 100.3 F H 88 16 95/61 95 Weight Admit Weight 78.3 kg Weight 73.981 kg Most Recent Monitor Data Heart Rate from ECG 94 NIBP 150/91 NIBP BP-Mean 110 Respiration from ECG 15 SpO2 100 I&O: 08/03/20 08/04/20 08/05/20 06:59 06:59 06:59 Intake Total 240 600 800 Output Total 0 Balance 240 600 800 Result Diagrams: 08/05/20 08:41 08/05/20 08:41 Phys Exam - Physical Examination Constitutional: NAD HEENT: moist MMs Neck: supple, full ROM Respiratory: no wheezing, clear to auscultation bilateral Cardiovascular: RRR, no significant murmur Gastrointestinal: soft, non-tender, positive bowel sounds Neurological: moves all 4 limbs Psychiatric: normal affect Dx/Plan - Plan Plan: 1. Small Bowel Obstruction, s/p exploratory laparotomy x 2 -CT abdomen: There are dilated loops of proximal small bowel measuring up to 5.0 cm in size. The colon is decompressed. The distal small bowel loops are decompressed and there is a transition point in the right lower quadrant of the abdomen. -Admission Exam with tenderness and rebound in RLQ -General Surgery, Dr. Easton-consulted from ED & transitioned care to Dr. Garrison overnight, appreciate recs -s/p exploratory laparotomy on 07/[address] Garrison -during operation developed EKG changes with persistent hypotension, left femoral central line placed and did require pressor support with Levophed & Vasopressin until 07/28, femoral line removed on 08/03 -abdominal wound vac placed on 07/26 with 900 mL output in last 24 hours-- discontinued after surgery on 07/27 -s/p 2nd exploratory laparotomy with appendectomy on 11/[address] Easton -placed on Cefoxitin through 07/31, discontinued -placed on Hydrocortisone for suspected acute adrenal insufficiency -continue postop management per trauma surgery team -tisha removed -NG d/c 08/01 & 08/02 -monitor vitals, I/Os -Pain Control: 07/27-08/01 Dilaudid DRIVER EXAMINER pump, now on Tylenol 3 -Zofran for n/v -admission WBC 4.0 > 6.7 -Protonix -tolerating PO intake, passing gas/having BMs -CM: [facility] 2. Elevated Troponin -trop 0.312, likely due to demand ischemia -trended to 0.245 3. Anion Gap Metabolic Acidosis, Resolved A, will monitor -likely due to ischemia enteritis -AG of 22 on admission (Na 140, Cl 94, Bicarb 24, Albumin 5) 4. ESRD on HD -consult patients hat copyist Dr. Shin, appreciate recs -typically receives M/W/F dialysis -developed hyperkalemia intraop, urgent dialysis on 07/26, otherwise has been following his regular schedule -admission Cr 11.19, BUN 38> trend up to max Cr 14.05 on 07/31 -Started Renvela for elevated phos -dialysis yesterday -renal diet ordered 5. Acute Blood Loss Anemia -Macrocytic Anemia, chronic -Hgb 11.9, MCV 103 on admission > trended down to Hgb 9.1 this morning -s/p 2 units pRBCs on 07/28 -likely due to chronic kidney disease -is supposed to be taking Retacrit but patient cannot afford so is not taking at home -Dr. Shin to resume Epogen weekly 6. HTN - Meds: Coreg, Lisinopril, Hydralazine, Procardia Dispo: medically stable for DC, pending acceptance to inpatient rehab Addendum - Attending - Attending Attestation Date/Time: 08/05/20 0017 I personally evaluated the patient and discussed the management with Dr. Luda berrios. I agree with the History, Examination, Assessment and Plan documented above with any addition or exceptions noted below. Patient is doing well. Inpatient rehab referral is pending at this time.
[2020-08-05] MEDS: Acetaminophen/Codeine 30-300mg Tablet PO SCH ×3 (06:30→18:11)
--- NOTE | 2020-08-05 08:03 | PRG ---
DATE OF SERVICE: 08/04/2020 SUBJECTIVE: Mr. Ayala is a 45-year-old male, hospital day 10, postop day 7, status post second-look exploratory laparotomy with abdominal closure for ischemic bowel. The patient is tolerating his diet well and had a soft bowel movement yesterday. He is doing well. He did have dialysis today. The patient reports he lives at home with his and 2 children. He is walking around the hallways and doing loops and feels like he is getting stronger. OBJECTIVE: VITAL SIGNS: Temperature 98.6, pulse 81, respirations 18, O2 saturation 96 on room air, and blood pressure 104/68. GENERAL: A 45-year-old male sitting in bed, no acute distress. Nontoxic appearing. HEENT: Normocephalic and atraumatic. RESPIRATORY: Equal rise and fall. Clear bilateral breath sounds. CARDIOVASCULAR: Regular rate and rhythm. No murmurs. EXTREMITIES: Does have a fistula. ABDOMEN: Soft with no guarding or rigidity. Removed tisha today. Incision is clean and dry. MUSCULOSKELETAL: Moves all extremities well. PSYCHIATRIC: Normal mood and affect. NEUROLOGIC: Alert, oriented to person, place, time. GCS is 15. LABORATORY DATA: White blood cell 9.2, hemoglobin 9.1, sodium 135, potassium 4.2, creatinine 10.62, phosphorus 6.9, and magnesium 2.1. ASSESSMENT: 1. Postop day 7, status post second-look exploratory laparotomy with abdominal closure. 2. Ischemic enteritis secondary to small bowel obstruction secondary to intraabdominal adhesions that are grossly normal. No peritonitis today. 3. History of end-stage renal disease, on hemodialysis and stable. 4. Resolved acute distributive shock. PLAN: 1. Removed patient's tisha from abdominal incisions today. Area is clean and dry. 2. Discontinue p.o. Protonix. 3. Add Senokot to bowel regimen. 4. Patient is ready for discharge. Patient will follow up with Dr. Easton in clinic in 2 weeks. The patient was seen and evaluated by Dr. Easton during morning rounds. Discussed plan of care with the patient and family who are in agreement. Job ID: [id number]
[2020-08-05] MEDS: Phenytoin 50 MG Chewable Tablet PO SCH ×3 (08:44→21:25)
[2020-08-05] MEDS: Polyethylene Glycol 3350 17 GM Packet PO SCH (08:44)
[2020-08-05] MEDS: Sevelamer Carbonate 800 MG TAB PO SCH ×3 (08:44→18:10)
[2020-08-05] MEDS: Heparin 5,000 UNITS/ML VIAL SC SCH ×2 (08:45→21:25)
[2020-08-05] MEDS: levETIRAcetam 500 MG TAB PO SCH ×2 (08:45→21:25)
[2020-08-05] MEDS: Atorvastatin Calcium 40 MG TAB PO SCH (08:45)
[2020-08-05 09:16] LABS: ALT (SGPT) 21 U/L (8-55); AST (SGOT) 24 U/L (5-34); Alkaline Phosphatase 201 U/L (40-110); Anion Gap 22 mmol/L (10-20); BUN (Urea Nitrogen) 33 mg/dL (8.9-20.6); Bilirubin, Total 0.7 mg/dL (0.2-1.2); Calc. Creatinine Clearance 10 mL/min (70-130); Calcium 8.7 mg/dL (7.8-10.44); Carbon Dioxide 26 mmol/L (22-29); Chloride 94 mmol/L (98-107); Estimated GFR-MDRD 6; Globulin 3.6 g/dL (2.4-3.5); Glucose 90 mg/dL (70-105); Potassium 4.9 mmol/L (3.5-5.1); Protein, Total 6.6 g/dL (6.0-8.3); Sodium 137 mmol/L (136-145)
[2020-08-05 09:22] LABS: #Lymphocytes 1.1 thou/uL (1.20-3.40); #Monocytes 0.7 thou/uL (0.11-0.59); #Neutrophils 6.7 thou/uL (1.40-6.50); %Eosinophils 0.5 % (0.0-10.0); %Lymphocytes 12.5 % (21.0-51.0); %Monocytes 7.9 % (0.0-10.0); Hemoglobin 9.5 g/dL (14.0-18.0); Mean Corpuscular HGB CONC 31.1 g/dL (32.0-36.0); Mean Corpuscular Hemoglobin 31.4 pg (27.0-31.0); Mean Platelet Volume 7.6 fL (7.4-10.4); Platelet Count 295 thou/uL (130-400); RBC Distribution Width 14.9 % (11.5-14.5); Red Blood Cell (RBC) Count 3.02 mill/uL (4.70-6.10); White Blood Cell (WBC) Count 8.5 thou/uL (4.8-10.8)
[2020-08-05] MEDS: EPOETIN ALFA-EPBX (ESRD) 4,000 UNIT/ML VIAL SC SCH (14:04)
[2020-08-05 17:50] LABS: Glucose 82 mg/dL (70-105)
[2020-08-05 21:44] LABS: Glucose 115 mg/dL (70-105)
[2020-08-06] MEDS: Acetaminophen/Codeine 30-300mg Tablet PO SCH ×4 (01:37→17:02)
--- NOTE | 2020-08-06 05:28 | PDOC.FM ---
- Subjective Subjective: Patient was sleeping comfortably in bed. He reports that his abdomen is slightly tender but he is able to tolerate PO intake and is ambulating. Yesterday, the patient had a recorded temperature of 100.8. I personally called the nurse in regards to the fever and she reported that she had the patient use his incentive spirometer. She checked the patient's temperature shortly after and it was normal. Encouraged the patient to continue using his incentive spirometer and to ambulate frequently. According to CM, there is possibility of a private dialysis bed being available today at [facility] rehab. I relayed this information to the patient. - Objective MAR Reviewed: Yes Vital Signs & Weight: Vital Signs (12 hours) Temp Pulse Resp BP Pulse Ox 08/06/20 03:07 98.1 F 80 16 127/74 99 08/06/20 00:15 98.1 F 91 16 96/63 96 08/05/20 20:19 98.7 F 91 16 93/65 96 Weight Admit Weight 78.3 kg Weight 73.981 kg Most Recent Monitor Data Heart Rate from ECG 94 NIBP 150/91 NIBP BP-Mean 110 Respiration from ECG 15 SpO2 100 I&O: 08/04/20 08/05/20 08/06/20 06:59 06:59 06:59 Intake Total 600 1160 800 Balance 600 1160 800 Result Diagrams: 08/06/20 05:24 08/06/20 12:02 Phys Exam - Physical Examination Constitutional: NAD HEENT: moist MMs Neck: supple, full ROM Respiratory: no wheezing, no rales, no rhonchi, clear to auscultation bilateral Cardiovascular: RRR, no significant murmur Gastrointestinal: soft, no distention, positive bowel sounds slightly tender to palpation Musculoskeletal: no edema Psychiatric: normal affect, A&O x 3 Skin: no rash Dx/Plan - Plan Plan: 1. Small Bowel Obstruction, s/p exploratory laparotomy x 2 -CT abdomen: There are dilated loops of proximal small bowel measuring up to 5.0 cm in size. The colon is decompressed. The distal small bowel loops are decompressed and there is a transition point in the right lower quadrant of the abdomen. -Admission Exam with tenderness and rebound in RLQ -General Surgery, Dr. Easton-consulted from ED & transitioned care to Dr. Garrison overnight, appreciate recs -s/p exploratory laparotomy on 07/[address] Garrison -during operation developed EKG changes with persistent hypotension, left femoral central line placed and did require pressor support with Levophed & Vasopressin until 07/28, femoral line removed on 08/03 -abdominal wound vac placed on 07/26 with 900 mL output in last 24 hours--discontinued after surgery on 07/27 -s/p 2nd exploratory laparotomy with appendectomy on 07/[address] Easton -placed on Cefoxitin through 07/31, discontinued -placed on Hydrocortisone for suspected acute adrenal insufficiency -continue postop management per trauma surgery team -tisha removed -NG d/c 08/01 & 08/02 -monitor vitals, I/Os -Pain Control: 07/27-08/01 Dilaudid PHYSICAL EDUCATION TEACHER pump, now on Tylenol 3 -Zofran for n/v -admission WBC 4.0 > 6.7 -Protonix -tolerating PO intake, passing gas/having BMs -CM: [facility] this afternoon pending private dialysis bed -encouraged frequent use of incentive spirometer and ambulation 2. Fever, 100.8 -recorded fever of 100.8 yesterday -normal temp shortly after without administration of antipyretic -will continue to monitor 3. Elevated Troponin -trop 0.312, likely due to demand ischemia -trended to 0.245 4. Anion Gap Metabolic Acidosis, - A, will monitor, likely elevated due to uremia, dialysis tomorrow -acidosis likely due to ischemia enteritis, resolved -AG of 22 on admission (Na 140, Cl 94, Bicarb 24, Albumin 5) 5. ESRD on HD -consult patients dental cream maker Dr. Shin, appreciate recs -typically receives M/W/F dialysis -developed hyperkalemia intraop, urgent dialysis on 07/26, otherwise has been following his regular schedule -admission Cr 11.19, BUN 38> trend up to max Cr 14.05 on 07/31 -Started Renvela for elevated phos -next dialysis on Friday -renal diet ordered 6. Acute Blood Loss Anemia -Macrocytic Anemia, chronic -Hgb 11.9, MCV 103 on admission > trended down to Hgb 9.2 this morning -s/p 2 units pRBCs on 07/28 -likely due to chronic kidney disease -is supposed to be taking Retacrit but patient cannot afford so is not taking at home -Dr. Shin to resume Epogen weekly 7. HTN - Meds: Coreg, Lisinopril, Hydralazine, Procardia - held for low, normal BPs, will continue to monitor and restart as needed Dispo: medically stable for DC, pending acceptance to inpatient rehab Addendum - Attending - Attending Attestation Date/Time: 08/06/20 6635 I personally evaluated the patient and discussed the management with Dr. Garcia. I agree with the History, Examination, Assessment and Plan documented above with any addition or exceptions noted below. The patient is doing well. He is likely going [facility] bed [facility]. No additional elevated temps except that mentioned above. Will monitor.
[2020-08-06 05:59] LABS: #Eosinphils 0.1 thou/uL (0.0-0.7); #Monocytes 1.1 thou/uL (0.11-0.59); #Neutrophils 5.8 thou/uL (1.40-6.50); %Basophils 0.2 % (0.0-1.0); %Eosinophils 0.8 % (0.0-10.0); %Lymphocytes 12.9 % (21.0-51.0); %Monocytes 13.7 % (0.0-10.0); %Neutrophils 72.4 % (42.0-75.0); Hemoglobin 9.2 g/dL (14.0-18.0); Mean Corpuscular HGB CONC 33.4 g/dL (32.0-36.0); Mean Corpuscular Hemoglobin 33.6 pg (27.0-31.0); Mean Platelet Volume 7.4 fL (7.4-10.4); Platelet Count 323 thou/uL (130-400); RBC Distribution Width 14.8 % (11.5-14.5); Red Blood Cell (RBC) Count 2.75 mill/uL (4.70-6.10)
[2020-08-06 06:19] LABS: ALT (SGPT) 19 U/L (8-55); AST (SGOT) 27 U/L (5-34); Albumin 2.9 g/dL (3.5-5.0); Alkaline Phosphatase 205 U/L (40-110); Anion Gap 23 mmol/L (10-20); BUN (Urea Nitrogen) 46 mg/dL (8.9-20.6); Bilirubin, Total 0.6 mg/dL (0.2-1.2); Calc. Creatinine Clearance 8 mL/min (70-130); Calcium 8.9 mg/dL (7.8-10.44); Carbon Dioxide 23 mmol/L (22-29); Chloride 93 mmol/L (98-107); Estimated GFR-MDRD 5; Globulin 3.8 g/dL (2.4-3.5); Glucose 97 mg/dL (70-105); Potassium 5.3 mmol/L (3.5-5.1); Protein, Total 6.7 g/dL (6.0-8.3); Sodium 134 mmol/L (136-145)
[2020-08-06 08:19] LABS: Glucose 95 mg/dL (70-105)
[2020-08-06] MEDS: Sevelamer Carbonate 800 MG TAB PO SCH ×3 (08:43→17:02)
[2020-08-06] MEDS: Atorvastatin Calcium 40 MG TAB PO SCH (08:43)
[2020-08-06] MEDS: Heparin 5,000 UNITS/ML VIAL SC SCH (08:44)
[2020-08-06] MEDS: levETIRAcetam 500 MG TAB PO SCH (08:44)
[2020-08-06] MEDS: Phenytoin 50 MG Chewable Tablet PO SCH ×2 (08:44→15:18)
[2020-08-06] MEDS: Polyethylene Glycol 3350 17 GM Packet PO SCH (08:46)
[2020-08-06 12:31] LABS: Glucose 104 mg/dL (70-105)
--- NOTE | 2020-08-06 16:33 | PRG ---
DATE OF SERVICE: 08/06/2020 SUBJECTIVE: Mr. Ayala is a 45-year-old male, who has ESRD and initially admitted for small-bowel obstruction. He underwent exploratory laparotomy with lysis of adhesions. We are following him up for his maintenance hemodialysis. He is doing well with his dialysis. In addition, the patient is tolerating his p.o. Initially, had a low-grade fever this morning, but it has now resolved. No new complaints today. He is ambulating. OBJECTIVE: VITAL SIGNS: Blood pressure 97/61, heart rate 88, respiratory rate 12, temperature 98.1, and O2 saturation 99% on room air. GENERAL: The patient is awake, alert, comfortable, not in distress. SKIN: Adequate turgor. HEENT: Slightly pale conjunctivae. Anicteric sclerae. No neck mass. No carotid bruits. No JVD. CHEST: No deformities. LUNGS: Decreased breath sounds. HEART: Normal sinus rhythm. No murmurs. No gallops. No rubs. ABDOMEN: Globular, soft, and nontender. EXTREMITIES: No edema. No deformities. MEDICATIONS: August 06, 2020, reviewed. LABORATORY DATA: August 06, 2020; white count 8, hemoglobin 9.2. Sodium 134, potassium 5.3, chloride 93, carbon dioxide 23, BUN 46, creatinine 11.82, calcium 8.9. Alkaline phosphatase 205, albumin 2.9. ASSESSMENT AND PLAN: 1. Status post exploratory laparotomy for small-bowel obstruction, doing well, tolerating p.o. 2. Anemia, continuing weekly Epogen with this patient, p.r.n. blood transfusion. 3. end-stage renal disease, stable. No indication for any emergent hemodialysis today. I have scheduled him for his regular dialysis tomorrow with fluid removal as tolerated. The plan is for him to undergo 3-1/2 hours of hemodialysis. Job ID: [id number]
[2020-08-06 16:53] VITALS: BP 105/67; TEMP 98
[2020-08-06 17:38] LABS: Glucose 81 mg/dL (70-105)
--- NOTE | 2020-08-08 14:14 | DIS ---
DATE OF ADMISSION: 07/25/2020 DATE OF DISCHARGE: 08/06/2020 RESIDENT: Olviia Garcia MD ADMITTING ATTENDING: Aldo Menard MD DISCHARGE ATTENDING: Monisha Lee MD CONSULTS: 1. General Surgery, Dr. Garrison. 2. Nephrology, Dr. Shin. 3. Trauma Surgery, Dr. Easton. PROCEDURES/IMAGES: 1. Exploratory laparotomy on 07/26/2020. 2. Second-look exploratory laparotomy, appendectomy, abdominal washout and closure on 07/27/2020. 3. CT of the abdomen and pelvis, 07/25/2020. Findings are consistent with small bowel obstruction. Likely one transition point in the right lower quadrant of the abdomen. Atrophic kidneys with bilateral renal cysts. 4. Abdominal x-ray, 07/25/2020, gastric catheter projects in the region of the gastric fundus. 5. Abdominal x-ray, 07/25/2020. Nasogastric tube remains leftward deflected over the left upper quadrant at the expected location of the gastric fundus. Unchanged from previous study. Gas dilated loops of small bowel throughout the remainder of the abdomen are also unchanged. 6. Abdominal x-ray, 07/27/2020. Dobhoff tube located in the proximal jejunum. PRIMARY DIAGNOSIS: Small bowel obstruction status post exploratory laparotomy x2. SECONDARY DIAGNOSES: 1. Elevated troponin. 2. Anion gap metabolic acidosis. 3. End-stage renal disease, on hemodialysis. 4. Acute blood loss anemia. 5. Hypertension. DISCHARGE MEDICATIONS: 1. Phenytoin 2 tabs p.o. t.i.d. 2. Aspirin 81 mg p.o. daily. 3. Keppra 500 mg p.o. b.i.d. 4. Vitamin D 2000 units p.o. daily. 5. Atorvastatin 40 mg p.o. daily. 6. Melatonin 3 mg p.o. at bedtime p.r.n. 7. Zoloft 150 mg p.o. daily. 8. Acetaminophen with codeine 1 tab p.o. q.6 hours. 9. Benadryl 25 mg p.o. q.3 hours p.r.n. 10. Dulcolax 10 mg daily p.r.n. 11. Polyethylene glycol 17 g p.o. daily. 12. Protonix 40 mg p.o. daily. 13. Renvela 1600 mg p.o. t.i.d. with meals. 14. Epoetin 7500 units subcutaneous q.7 days. DISCONTINUED MEDICATIONS: 1. Carvedilol 3.125 mg p.o. b.i.d. 2. Lisinopril 20 mg p.o. daily. 3. Hydralazine 100 mg p.o. t.i.d. 4. Nifedipine 30 mg p.o. daily. HISTORY OF PRESENT ILLNESS/HOSPITAL COURSE: The patient is a 45-year-old male with a past medical history of end-stage renal disease, on dialysis, who presented to the ER with nausea, vomiting and abdominal pain. He reported the abdominal pain has been present for about a week and that his stools have been loose and nonbloody for the past week. In the ED, the patient was actively vomiting and an NG tube was placed. CT of the abdomen revealed dilated loops of proximal small bowel, measuring up to 5 cm in size. The colon appeared decompressed. The distal small bowel loops were decompressed and there was a transition point in the right lower quadrant of the abdomen. General Surgery, both Dr. Easton and Dr. Garrison were consulted and the patient underwent exploratory laparotomy with Dr. Garrison on 07/26. During the operation, he had EKG changes with persistent hypotension and a left femoral central line was placed and he was given pressor support with Levophed and vasopressin until 07/28. The femoral line was removed on 08/03. The patient had an abdominal wound VAC placed on 07/26, and he returned to the OR for a 2nd exploratory laparotomy with appendectomy on 07/27. At this time, the wound VAC was discontinued. He was placed on cefoxitin through 07/31. He was also placed on hydrocortisone for suspected acute adrenal insufficiency, however, this was discontinued. Prior to discharge, the patient's tisha were removed. He had 2 NG tubes during his stay, both of which were removed on 08/01 and 08/02. Prior to discharge, the patient was tolerating p.o. intake and passing gas and having bowel movements. Due to his prolonged hospital stay, he was extremely weak and it was decided that rehab was the best option for this patient. During his stay, he was noted to have an anion gap metabolic acidosis, which was likely secondary to ischemic enteritis. The metabolic acidosis improved. He did develop an anion gap throughout his stay, which was likely secondary to his elevated uremia. The patient has end-stage renal disease and is on hemodialysis. He underwent urgent dialysis on 07/26. Otherwise, he kept his normal dialysis schedule of Friday, Friday, Friday with Dr. Shin. Of note, the patient did require 2 units of packed red blood cells on 07/28. He does have chronic macrocytic anemia, which is likely secondary to his chronic kidney disease. The patient was supposed to take Retacrit to help, however, he could not afford this medication and Epogen was resumed by Dr. Shin. During the patient's hospital stay, his blood pressure was low but normal. Due to these readings, his blood pressure medicine of Coreg, lisinopril, hydralazine, and Procardia were held in the hospital and on his discharge. His blood pressure should be monitored closely outpatient and restarting these medications should be considered. DISPOSITION: Stable. DISCHARGE LOCATION: [facility]. ACTIVITY: As tolerated. DIET: Renal diet. FOLLOWUP: Follow up with primary care provider in seven days and with Dr. Easton on August 15 at 2:30 p.m. Job ID: [id number]
== END 2020-08-06 17:30 | DRG 335 ==
LOC: ERS 13:51 → ERHOLD 16:36 → T4-A 20:34 → CCU 07-26 04:08 → SJJU 07-28 20:06
PROVIDERS: ADMIT Student in an Organized Health Care Education/Training Program; ATTEND Student in an Organized Health Care Education/Training Program
PROC: 0DN80ZZ Release Small Intestine, Open Approach (ICD-10-PCS; principal; 2020-07-26)
PROC: 0DNW0ZZ Release Peritoneum, Open Approach (ICD-10-PCS; 2020-07-26)
PROC: 0DNU0ZZ Release Omentum, Open Approach (ICD-10-PCS; 2020-07-26)
PROC: 0W9G00Z Drainage of Peritoneal Cavity with Drainage Device, Open Approach (ICD-10-PCS; 2020-07-26)
PROC: 5A1D70Z Performance of Urinary Filtration, Intermittent, Less than 6 Hours Per Day (ICD-10-PCS; 2020-07-26)
PROC: 30233N1 Transfusion of Nonautologous Red Blood Cells into Peripheral Vein, Percutaneous Approach (ICD-10-PCS; 2020-07-26)
PROC: 06HY33Z Insertion of Infusion Device into Lower Vein, Percutaneous Approach (ICD-10-PCS; 2020-07-26)
PROC: 3E043XZ Introduction of Vasopressor into Central Vein, Percutaneous Approach (ICD-10-PCS; 2020-07-26)
PROC: 5A1945Z Respiratory Ventilation, 24-96 Consecutive Hours (ICD-10-PCS; 2020-07-26)
PROC: 0DTJ0ZZ Resection of Appendix, Open Approach (ICD-10-PCS; 2020-07-27)
PROC: 3E0M05Z Introduction of Adhesion Barrier into Peritoneal Cavity, Open Approach (ICD-10-PCS; 2020-07-27)
PROC: 3E0336Z Introduction of Nutritional Substance into Peripheral Vein, Percutaneous Approach (ICD-10-PCS; 2020-07-30)
DX: K56.50 Intestinal adhesions [bands], unspecified as to partial versus complete obstruction (principal); N18.6 End stage renal disease; K55.029 Acute infarction of small intestine, extent unspecified; A41.9 Sepsis, unspecified organism; R65.21 Severe sepsis with septic shock; J96.00 Acute respiratory failure, unspecified whether with hypoxia or hypercapnia; R57.8 Other shock; E27.40 Unspecified adrenocortical insufficiency; N17.9 Acute kidney failure, unspecified; E87.2 Acidosis; I24.8 Other forms of acute ischemic heart disease; D62 Acute posthemorrhagic anemia; Z20.828 Contact with and (suspected) exposure to other viral communicable diseases; G40.909 Epilepsy, unspecified, not intractable, without status epilepticus; E11.22 Type 2 diabetes mellitus with diabetic chronic kidney disease; G89.29 Other chronic pain; I50.9 Heart failure, unspecified; I11.0 Hypertensive heart disease with heart failure; E11.65 Type 2 diabetes mellitus with hyperglycemia; D63.1 Anemia in chronic kidney disease; E83.51 Hypocalcemia; E87.6 Hypokalemia; E87.5 Hyperkalemia; E83.39 Other disorders of phosphorus metabolism; Z87.891 Personal history of nicotine dependence; Z88.0 Allergy status to penicillin; Z79.899 Other long term (current) drug therapy; Z79.82 Long term (current) use of aspirin; Z79.84 Long term (current) use of oral hypoglycemic drugs; Z86.74 Personal history of sudden cardiac arrest; Z99.2 Dependence on renal dialysis; Z89.421 Acquired absence of other right toe(s); Z87.820 Personal history of traumatic brain injury; Z78.1 Physical restraint status
CPT/HCPCS: 36415; 36416; 36430; 71045; 74018; 74177; 80053; 82533; 82550; 82553; 82805; 83605; 83690; 83735; 84100; 84484; 85025; 86140; 86850; 86900; 86901; 87635; 88304; 90935; 93005; 94002; 94003; 96374; 96375; 96376; 99406; C1751; C9113; G0257; J0171; J0694; J1644; J1720; J1953; J2250; J2270; J2370; J2405; J2704; J3010; J3490; J7070; P9016; P9045; Q5105; Q9967; S0020; U0003

== ENCOUNTER 2020-12-17 13:27 | Emergency (ER) | payer MEDICARE ==
[2020-12-17 14:04] LABS: #Eosinphils 0.1 thou/uL (0.0-0.7); #Lymphocytes 1.3 thou/uL (1.20-3.40); #Monocytes 0.9 thou/uL (0.11-0.59); #Neutrophils 4.6 thou/uL (1.40-6.50); %Basophils 0.5 % (0.0-1.0); %Eosinophils 1.9 % (0.0-10.0); %Monocytes 12.3 % (0.0-10.0); %Neutrophils 66.3 % (42.0-75.0); Hemoglobin 13.2 g/dL (14.0-18.0); Mean Corpuscular HGB CONC 33.6 g/dL (32.0-36.0); Mean Corpuscular Hemoglobin 31.8 pg (27.0-31.0); Mean Corpuscular Volume 94.8 fL (78.0-98.0); Mean Platelet Volume 6.9 fL (7.4-10.4); Platelet Count 183 thou/uL (130-400); RBC Distribution Width 14.8 % (11.5-14.5); Red Blood Cell (RBC) Count 4.16 mill/uL (4.70-6.10); White Blood Cell (WBC) Count 6.9 thou/uL (4.8-10.8)
[2020-12-17 14:26] LABS: ALT (SGPT) 12 U/L (8-55); AST (SGOT) 15 U/L (5-34); Albumin 3.4 g/dL (3.5-5.0); Alkaline Phosphatase 90 U/L (40-110); Anion Gap 22 mmol/L (10-20); BUN (Urea Nitrogen) 65 mg/dL (8.9-20.6); Bilirubin, Total 0.5 mg/dL (0.2-1.2); Calc. Creatinine Clearance 0 mL/min (70-130); Calcium 8.6 mg/dL (7.8-10.44); Carbon Dioxide 14 mmol/L (22-29); Chloride 99 mmol/L (98-107); Glucose 90 mg/dL (70-105); Potassium 5.9 mmol/L (3.5-5.1); Protein, Total 6.4 g/dL (6.0-8.3); Sodium 129 mmol/L (136-145)
[2020-12-17 14:47] LABS: CKMB 5.7 ng/mL (0-6.6)
[2020-12-17] MEDS ORDERED: Dextrose 50% Abboject 50 ML SYRINGE ONE (15:03)
[2020-12-17] MEDS ORDERED: Calcium Gluc 4.6 MEQ/10 ML (100 MG/ML) ONE (15:03)
[2020-12-17] MEDS ORDERED: Insulin Regular 300 UNITS/3 ML VIAL ONE (15:04)
[2020-12-17 15:54] LABS: HBSAg Index 0.19 S/CO (0-0.99); Hep B Surf Ag Non-Reactive S/CO (NonReactive)
== END 2020-12-17 20:40 | disposition home or self-care (01) ==
LOC: ERS 13:27
DX: E87.5 Hyperkalemia (principal); E87.2 Acidosis; E87.70 Fluid overload, unspecified; E11.9 Type 2 diabetes mellitus without complications; Z79.899 Other long term (current) drug therapy
CPT/HCPCS: 36415; 36416; 71045; 80053; 82553; 84484; 85025; 87340; 90935; 93005; 96374; 96375; G0257; J1815; J2001

== ENCOUNTER 2021-01-13 20:56 | Emergency (ER) | payer MEDICARE ==
[2021-01-13 21:56] LABS: Hemoglobin 9.8 g/dL (14.0-18.0); Mean Corpuscular HGB CONC 33.8 g/dL (32.0-36.0); Mean Corpuscular Hemoglobin 31.1 pg (27.0-31.0); Mean Corpuscular Volume 91.9 fL (78.0-98.0); RBC Distribution Width 13.9 % (11.5-14.5); Red Blood Cell (RBC) Count 3.14 mill/uL (4.70-6.10); White Blood Cell (WBC) Count 4.5 thou/uL (4.8-10.8)
[2021-01-13 22:13] LABS: ALT (SGPT) 12 U/L (8-55); AST (SGOT) 18 U/L (5-34); Albumin 3.8 g/dL (3.5-5.0); Alkaline Phosphatase 76 U/L (40-110); Anion Gap 23 mmol/L (10-20); BUN (Urea Nitrogen) 54 mg/dL (8.9-20.6); Bilirubin, Total 0.5 mg/dL (0.2-1.2); Calc. Creatinine Clearance 0 mL/min (70-130); Calcium 8.9 mg/dL (7.8-10.44); Carbon Dioxide 20 mmol/L (22-29); Chloride 92 mmol/L (98-107); Globulin 3.3 g/dL (2.4-3.5); Glucose 76 mg/dL (70-105); Protein, Total 7.1 g/dL (6.0-8.3); Sodium 130 mmol/L (136-145)
[2021-01-13 22:15] LABS: #Eosinphils 0.1 thou/uL (0.0-0.7); #Lymphocytes 1.3 thou/uL (1.20-3.40); #Monocytes 0.6 thou/uL (0.11-0.59); #Neutrophils 2.5 thou/uL (1.40-6.50); %Basophils 0.5 % (0.0-1.0); %Eosinophils 1.9 % (0.0-10.0); %Lymphocytes 28.1 % (21.0-51.0); %Monocytes 13.1 % (0.0-10.0); %Neutrophils 56.4 % (42.0-75.0); Mean Platelet Volume 8.3 fL (7.4-10.4); Platelet Count 118 thou/uL (130-400)
== END 2021-01-14 00:20 | disposition home or self-care (01) ==
LOC: ERS 20:56
DX: I12.0 Hypertensive chronic kidney disease with stage 5 chronic kidney disease or end stage renal disease (principal); E11.22 Type 2 diabetes mellitus with diabetic chronic kidney disease; D63.1 Anemia in chronic kidney disease; N18.6 End stage renal disease; Z79.899 Other long term (current) drug therapy
CPT/HCPCS: 36415; 80053; 85025; 93005

== ENCOUNTER 2021-01-15 23:46 | Observation (INO) | payer MEDICARE ==
[2021-01-16] MEDS ORDERED: Labetalol HCl 100 MG/20 ML VIAL ONE (00:30)
[2021-01-16 00:39] LABS: #Eosinphils 0.1 thou/uL (0.0-0.7); #Monocytes 0.4 thou/uL (0.11-0.59); #Neutrophils 2.7 thou/uL (1.40-6.50); %Basophils 0.8 % (0.0-1.0); %Eosinophils 1.2 % (0.0-10.0); %Lymphocytes 24.2 % (21.0-51.0); %Monocytes 8.5 % (0.0-10.0); %Neutrophils 65.3 % (42.0-75.0); Hemoglobin 10.6 g/dL (14.0-18.0); Mean Corpuscular HGB CONC 33.4 g/dL (32.0-36.0); Mean Corpuscular Hemoglobin 30.4 pg (27.0-31.0); Mean Corpuscular Volume 90.9 fL (78.0-98.0); Mean Platelet Volume 7.4 fL (7.4-10.4); Platelet Count 176 thou/uL (130-400); RBC Distribution Width 14.2 % (11.5-14.5); Red Blood Cell (RBC) Count 3.47 mill/uL (4.70-6.10); White Blood Cell (WBC) Count 4.2 thou/uL (4.8-10.8)
[2021-01-16 00:56] LABS: ALT (SGPT) 11 U/L (8-55); AST (SGOT) 16 U/L (5-34); Albumin 3.6 g/dL (3.5-5.0); Alkaline Phosphatase 69 U/L (40-110); Anion Gap 29 mmol/L (10-20); BUN (Urea Nitrogen) 70 mg/dL (8.9-20.6); Bilirubin, Total 0.5 mg/dL (0.2-1.2); Calc. Creatinine Clearance 0 mL/min (70-130); Calcium 8.9 mg/dL (7.8-10.44); Carbon Dioxide 14 mmol/L (22-29); Chloride 93 mmol/L (98-107); Globulin 3.5 g/dL (2.4-3.5); Potassium 5.2 mmol/L (3.5-5.1); Protein, Total 7.1 g/dL (6.0-8.3); Sodium 131 mmol/L (136-145)
[2021-01-16 00:59] LABS: Glucose 50 mg/dL (70-105)
[2021-01-16] MEDS ORDERED: Bisacodyl 10 MG SUPP PR PRN (03:02)
[2021-01-16] MEDS ORDERED: Labetalol HCl 100 MG/20 ML VIAL SLOW IVP PRN (04:12)
[2021-01-16] MEDS ORDERED: Acetaminophen 325 MG TAB PO PRN (04:12)
[2021-01-16] MEDS ORDERED: hydrALAZINE 20 MG/ML VIAL SLOW IVP PRN (04:12)
[2021-01-16] MEDS ORDERED: Ondansetron ODT 4 MG TAB PO PRN (04:12)
[2021-01-16] MEDS ORDERED: Ondansetron PF 4 MG/2 ML Vial IVP PRN (04:12)
[2021-01-16] MEDS ORDERED: Acetaminophen 650 MG Suppository PR PRN (04:12)
[2021-01-16] MEDS ORDERED: HumaLOG 300 UNITS/3 ML VIAL SC PRN ×2 (06:26)
[2021-01-16] MEDS ORDERED: Dextrose 5% in Water 1,000 ML IV PRN (06:26)
[2021-01-16] MEDS ORDERED: Dextrose 50% Abboject 50 ML SYRINGE SLOW IVP PRN (06:26)
[2021-01-16] MEDS ORDERED: Cholecalciferol 1,000 UNITS (25 MCG) TAB ONE (07:37)
[2021-01-16] MEDS ORDERED: Sevelamer Carbonate 800 MG TAB PO SCH (08:00)
[2021-01-16] MEDS ORDERED: hydrALAZINE 25 MG TAB PO SCH (09:00)
[2021-01-16] MEDS ORDERED: Carvedilol 3.125 MG TAB PO SCH (09:00)
[2021-01-16] MEDS ORDERED: Atorvastatin Calcium 40 MG TAB PO SCH (09:00)
[2021-01-16] MEDS ORDERED: Lisinopril 20 MG TAB PO SCH (09:00)
[2021-01-16] MEDS ORDERED: Minoxidil 2.5 MG TAB PO SCH (09:00)
[2021-01-16] MEDS ORDERED: Cholecalciferol 1,000 UNITS (25 MCG) TAB PO SCH (09:00)
[2021-01-16] MEDS ORDERED: Aspirin 81 mg Enteric Coated Tablet PO SCH (09:00)
[2021-01-16] MEDS ORDERED: levETIRAcetam 500 MG TAB PO SCH (09:00)
[2021-01-16] MEDS ORDERED: Loperamide HCl 2 MG CAP PO PRN (09:48)
[2021-01-16] MEDS ORDERED: Aspirin Chewable 81 MG TAB ONE (09:58)
[2021-01-16] MEDS ORDERED: Loperamide HCl 2 MG CAP ONE (09:59)
[2021-01-16 11:01] LABS: HBSAg Index 0.18 S/CO (0-0.99); Hep B Surf Ag Non-Reactive S/CO (NonReactive)
[2021-01-16 11:34] LABS: SARS-CoV-2 PCR by NAA Not Detected (NotDetected)
[2021-01-16] MEDS ORDERED: EPOETIN ALFA-EPBX (ESRD) 4,000 UNIT/ML VIAL SC SCH (12:15)
[2021-01-16 12:25] LABS: #Eosinphils 0.1 thou/uL (0.0-0.7); #Lymphocytes 0.8 thou/uL (1.20-3.40); #Monocytes 0.4 thou/uL (0.11-0.59); #Neutrophils 2.5 thou/uL (1.40-6.50); %Basophils 0.6 % (0.0-1.0); %Neutrophils 66.4 % (42.0-75.0); Hemoglobin 9.2 g/dL (14.0-18.0); Mean Corpuscular HGB CONC 33.6 g/dL (32.0-36.0); Mean Corpuscular Hemoglobin 30.4 pg (27.0-31.0); Mean Corpuscular Volume 90.6 fL (78.0-98.0); Mean Platelet Volume 6.9 fL (7.4-10.4); Platelet Count 144 thou/uL (130-400); RBC Distribution Width 14.3 % (11.5-14.5); Red Blood Cell (RBC) Count 3.01 mill/uL (4.70-6.10); White Blood Cell (WBC) Count 3.8 thou/uL (4.8-10.8)
[2021-01-16 15:28] VITALS: BP 204/99; TEMP 97.5
== END 2021-01-16 17:10 | disposition left against medical advice (07) ==
LOC: ERS 23:46 → ERHOLD 01-16 01:37 → T4-A 01-16 12:13
PROVIDERS: ADMIT Emergency Medicine; ATTEND Emergency Medicine
DX: E87.70 Fluid overload, unspecified (principal); E87.5 Hyperkalemia; E87.2 Acidosis; I16.0 Hypertensive urgency; I12.0 Hypertensive chronic kidney disease with stage 5 chronic kidney disease or end stage renal disease; E11.22 Type 2 diabetes mellitus with diabetic chronic kidney disease; E11.649 Type 2 diabetes mellitus with hypoglycemia without coma; N18.6 End stage renal disease; D63.1 Anemia in chronic kidney disease; G40.909 Epilepsy, unspecified, not intractable, without status epilepticus; E83.39 Other disorders of phosphorus metabolism; Z79.82 Long term (current) use of aspirin; Z79.899 Other long term (current) drug therapy; Z87.891 Personal history of nicotine dependence; Z88.0 Allergy status to penicillin; Z91.15 Patient's noncompliance with renal dialysis; Z99.2 Dependence on renal dialysis; Z20.822 Contact with and (suspected) exposure to COVID-19
CPT/HCPCS: 71045; 80053; 82962; 85025 ×2; 87340; G0378 ×2; U0003; U0005; 36415; 36416; 87635; 90935; 96374; G0257

== ENCOUNTER 2021-02-07 16:13 | Inpatient (IN) | payer MEDICARE ==
[2021-02-07] MEDS ORDERED: Calcium Gluc 4.6 MEQ/10 ML (100 MG/ML) ONE (16:23)
[2021-02-07] MEDS ORDERED: Dextrose 50% Abboject 50 ML SYRINGE ONE ×2 (16:23→18:45)
[2021-02-07] MEDS ORDERED: Insulin Regular 300 UNITS/3 ML VIAL ONE (16:23)
[2021-02-07] MEDS ORDERED: Sodium Bicarb 50 MEQ/50 ML Abboject 8.4% SYRINGE ONE ×2 (16:31→16:35)
[2021-02-07] MEDS ORDERED: Albuterol Sulfate 2.5 mg/0.5 ml Neb ONE (16:33)
[2021-02-07 16:34] LABS: Hemoglobin 9.9 g/dL (14.0-18.0); Mean Corpuscular HGB CONC 33.4 g/dL (32.0-36.0); Mean Corpuscular Hemoglobin 32.2 pg (27.0-31.0); Mean Corpuscular Volume 96.3 fL (78.0-98.0); RBC Distribution Width 15.9 % (11.5-14.5); Red Blood Cell (RBC) Count 3.09 mill/uL (4.70-6.10); White Blood Cell (WBC) Count 4.3 thou/uL (4.8-10.8)
[2021-02-07 16:41] LABS: Anion Gap 22 mmol/L (10-20); BUN (Urea Nitrogen) 84 mg/dL (8.9-20.6); Calc. Creatinine Clearance 0 mL/min (70-130); Calcium 9.7 mg/dL (7.8-10.44); Carbon Dioxide 12 mmol/L (22-29); Chloride 112 mmol/L (98-107); Glucose 102 mg/dL (70-105); Sodium 138 mmol/L (136-145)
[2021-02-07 16:45] LABS: Potassium 7.9 mmol/L (3.5-5.1)
[2021-02-07 17:04] LABS: #Eosinphils 0.1 thou/uL (0.0-0.7); #Lymphocytes 1.1 thou/uL (1.20-3.40); #Monocytes 0.3 thou/uL (0.11-0.59); #Neutrophils 2.8 thou/uL (1.40-6.50); %Basophils 0.8 % (0.0-1.0); %Eosinophils 1.7 % (0.0-10.0); %Lymphocytes 25.1 % (21.0-51.0); %Monocytes 7.7 % (0.0-10.0); %Neutrophils 64.7 % (42.0-75.0); Mean Platelet Volume 7.7 fL (7.4-10.4); Platelet Count 112 thou/uL (130-400); Platelet Morphology Comment Appears Adequate
[2021-02-07] MEDS ORDERED: Haloperidol Lactate 5 MG/ML VIAL ONE (17:19)
[2021-02-07] MEDS ORDERED: Lorazepam 2 MG/ML VIAL ONE ×2 (17:19→18:59)
[2021-02-07] MEDS ORDERED: diphenhydrAMINE 50 MG/ML VIAL ONE (17:25)
[2021-02-07] MEDS ORDERED: Rocuronium Bromide 10 MG/ML (10ML VIAL) ONE (17:30)
[2021-02-07] MEDS ORDERED: Propofol 1,000 MG/100 ML VIAL IV ONE (17:31)
[2021-02-07 18:24] LABS: Troponin I 0.073 ng/mL (< 0.028)
[2021-02-07 18:28] LABS: Actual Bicarbonate (HCO3a) 14.8 mEq/L (22-28); Analyzer IN Cardio ER; Base Excess (BEa) -11.6 mEq/L (-2.0 to +3.0); CO2 Tension 35.1 mmHg (35.0-45.0); Calcium, Ionized (arterial) 1.36 mmol/L (1.12-1.30); Carboxyhemoglobin (COHb) 0.3 gm% (0.0-3.0); Hemoglobin (Hb) 10.1 g/dL (14.0-18.0); O2 Tension (PaO2), arterial 116.9 mmHg (80.0-100.0); Potassium - ABG Lab 6.22 mmol/L (3.70-5.30)
[2021-02-07 18:31] LABS: Puncture Site RRA; pH, Arterial 7.24 (7.35-7.45)
[2021-02-07 18:32] LABS: ALV-art Gradient 267.025 mmHg (0-20)
[2021-02-07] MEDS ORDERED: Fentanyl 100 MCG/2 ML VIAL ONE (18:33)
[2021-02-07] MEDS ORDERED: Fentanyl CADD 100 ML ONE (19:30)
[2021-02-07] MEDS ORDERED: Dextrose 5% in Water 1,000 ML IV PRN (19:49)
[2021-02-07] MEDS ORDERED: Electrolyte Replacement Protocol 1 EACH IVPB ONE (19:52)
[2021-02-07] MEDS ORDERED: Electrolyte Replacement Protocol FS PRN (20:00)
[2021-02-07] MEDS ORDERED: Lorazepam 2 MG/ML VIAL SLOW IVP PRN (20:00)
[2021-02-07] MEDS ORDERED: Morphine 2 MG/ML VIAL SLOW IVP PRN (20:00)
[2021-02-07] MEDS ORDERED: Ventilator Sedation Protocol 1 EACH FS SCH (20:00)
[2021-02-07] MEDS ORDERED: Propofol BOLUS 1,000 MG/100 ML VIAL IV PRN (20:00)
[2021-02-07] MEDS ORDERED: Fentanyl BOLUS 250 ML IVPB PRN (20:00)
[2021-02-07] MEDS ORDERED: Fentanyl CADD 100 ML IV SCH (20:00)
[2021-02-07] MEDS ORDERED: DISCONTINUE PREVIOUS NARCOTIC PAIN MEDICATIONS AND BENZODIAZEPINES FS SCH (20:00)
[2021-02-07 20:08] LABS: SARS-CoV-2 NAA Rapid Test Not Detected (NotDetected)
[2021-02-07 20:38] LABS: ALT (SGPT) 15 U/L (8-55); AST (SGOT) 21 U/L (5-34); Albumin 3.4 g/dL (3.5-5.0); Alkaline Phosphatase 70 U/L (40-110); Bilirubin, Direct 0.2 mg/dL (0.1-0.3); Bilirubin, Total 0.5 mg/dL (0.2-1.2); Phosphorus 5.4 mg/dL (2.3-4.7); Protein, Total 6.1 g/dL (6.0-8.3)
[2021-02-07 20:39] LABS: Acetaminophen Less than 6.0 mcg/mL (10.0-30.0); Alcohol Less than 10 mg/dL (Less than 10); CRP (Inflammatory) Less than 0.50 mg/dL (= or < 0.5); Magnesium 2.9 mg/dL (1.6-2.6); Salicylate Less than 8.0 mg/dL (15.0-30.0); Uric Acid 4.7 mg/dL (3.5-7.2)
[2021-02-07] MEDS ORDERED: Dextrose 10% in Water 1,000 ML IV SCH (20:45)
[2021-02-07] MEDS ORDERED: levETIRAcetam 500 mg/5 ml Oral Solution PER TUBE SCH (21:00)
[2021-02-07 21:12] LABS: Syphilis Antibody Nonreactive (Nonreactive); Syphilis Antibody Index 0.07 S/CO (<1.00 Non-Reactive)
[2021-02-07] MEDS: Carvedilol 3.125 MG TAB PER TUBE SCH (21:33)
[2021-02-07] MEDS: Heparin 5,000 UNITS/ML VIAL SC SCH (21:33)
[2021-02-07] MEDS: hydrALAZINE 25 MG TAB PER TUBE SCH (21:34)
[2021-02-07] MEDS: Propofol 1,000 MG/100 ML VIAL IV PRN (22:13)
[2021-02-08 00:11] LABS: Acetaminophen Less than 6.0 mcg/mL (10.0-30.0); Alcohol Less than 10 mg/dL (Less than 10); Salicylate Less than 8.0 mg/dL (15.0-30.0)
[2021-02-08] MEDS ORDERED: Dextrose 50% Abboject 50 ML SYRINGE ONE (00:53)
[2021-02-08] MEDS: Dextrose 50% Abboject 50 ML SYRINGE SLOW IVP PRN ×2 (00:59→14:34)
[2021-02-08 01:08] LABS: HIV (1/2) Antibody/Antigen Non-Reactive (NonReactive); HIV 1/2 INDEX 0.19 S/CO (<1.00)
[2021-02-08 01:13] LABS: Anion Gap 17 mmol/L (10-20); BUN (Urea Nitrogen) 20 mg/dL (8.9-20.6); Calc. Creatinine Clearance 23 mL/min (70-130); Calcium 9.4 mg/dL (7.8-10.44); Carbon Dioxide 24 mmol/L (22-29); Chloride 102 mmol/L (98-107); Glucose 72 mg/dL (70-105); Potassium 3.3 mmol/L (3.5-5.1); Sodium 140 mmol/L (136-145)
[2021-02-08] MEDS: Propofol 1,000 MG/100 ML VIAL IV PRN (01:58)
[2021-02-08 02:49] LABS: ALT (SGPT) 15 U/L (8-55); AST (SGOT) 22 U/L (5-34); Albumin 3.3 g/dL (3.5-5.0); Alkaline Phosphatase 66 U/L (40-110); Anion Gap 17 mmol/L (10-20); BUN (Urea Nitrogen) 26 mg/dL (8.9-20.6); Bilirubin, Total 0.5 mg/dL (0.2-1.2); Calc. Creatinine Clearance 16 mL/min (70-130); Calcium 9.1 mg/dL (7.8-10.44); Carbon Dioxide 23 mmol/L (22-29); Chloride 102 mmol/L (98-107); Globulin 2.7 g/dL (2.4-3.5); Glucose 135 mg/dL (70-105); Magnesium 2.1 mg/dL (1.6-2.6); Potassium 3.5 mmol/L (3.5-5.1); Sodium 138 mmol/L (136-145)
[2021-02-08 02:52] LABS: Phosphorus 3.4 mg/dL (2.3-4.7)
[2021-02-08 04:06] LABS: #Eosinphils 0.1 thou/uL (0.0-0.7); #Lymphocytes 1.2 thou/uL (1.20-3.40); #Monocytes 0.3 thou/uL (0.11-0.59); #Neutrophils 2.2 thou/uL (1.40-6.50); %Basophils 0.4 % (0.0-1.0); %Eosinophils 1.5 % (0.0-10.0); %Lymphocytes 31.8 % (21.0-51.0); %Monocytes 8.5 % (0.0-10.0); %Neutrophils 57.7 % (42.0-75.0); Hemoglobin 9.5 g/dL (14.0-18.0); Mean Corpuscular HGB CONC 33.4 g/dL (32.0-36.0); Mean Corpuscular Hemoglobin 31.6 pg (27.0-31.0); Mean Corpuscular Volume 94.4 fL (78.0-98.0); Mean Platelet Volume 7.7 fL (7.4-10.4); Platelet Count 108 thou/uL (130-400); Red Blood Cell (RBC) Count 3.02 mill/uL (4.70-6.10); White Blood Cell (WBC) Count 3.8 thou/uL (4.8-10.8)
[2021-02-08] MEDS: Dextrose 10% in Water 1,000 ML IV SCH (05:00)
[2021-02-08] MEDS ORDERED: Potassium Bicarbonate/Cit Ac 20 MEQ TAB PER TUBE SCH (06:15)
[2021-02-08 07:50] LABS: Actual Bicarbonate (HCO3a) 25.9 mEq/L (22-28); Base Excess (BEa) 4.3 mEq/L (-2.0 to +3.0); CO2 Tension 28.5 mmHg (35.0-45.0); Carboxyhemoglobin (COHb) 0.3 gm% (0.0-3.0); Hemoglobin (Hb) 10.1 g/dL (14.0-18.0); O2 Tension (PaO2), arterial 81.6 mmHg (80.0-100.0); Potassium - ABG Lab 4.43 mmol/L (3.70-5.30)
[2021-02-08] MEDS: Pantoprazole 40 MG VIAL IVP SCH (07:55)
[2021-02-08] MEDS: Cholecalciferol 1,000 UNITS (25 MCG) TAB PER TUBE SCH (07:57)
[2021-02-08] MEDS: Aspirin 81 mg Enteric Coated Tablet PER TUBE SCH (07:57)
[2021-02-08] MEDS: Atorvastatin Calcium 40 MG TAB PER TUBE SCH (07:58)
[2021-02-08] MEDS: Heparin 5,000 UNITS/ML VIAL SC SCH ×3 (08:01→21:08)
[2021-02-08] MEDS: Sevelamer Carbonate 800 MG TAB PER TUBE SCH ×3 (08:03→16:35)
[2021-02-08] MEDS: Carvedilol 3.125 MG TAB PER TUBE SCH ×2 (08:17→20:58)
[2021-02-08] MEDS: hydrALAZINE 25 MG TAB PER TUBE SCH ×3 (08:17→20:56)
[2021-02-08] MEDS: Lisinopril 20 MG TAB PER TUBE SCH (08:20)
[2021-02-08] MEDS: Minoxidil 2.5 MG TAB PER TUBE SCH (08:21)
[2021-02-08 08:22] LABS: Troponin I 0.261 ng/mL (< 0.028)
[2021-02-08 08:24] LABS: Puncture Site RBA; pH, Arterial 7.58 (7.35-7.45)
[2021-02-08 08:25] LABS: ALV-art Gradient 167.975 mmHg (0-20)
[2021-02-08 08:40] LABS: Anisocytosis SLIGHT = 6-15 cells (100X) (0-5/hpf); Eosinophils 1 % (0-10); Hemoglobin 9.7 g/dL (14.0-18.0); Lymphocytes 48 % (21-51); MDiff Complete? YES; Mean Corpuscular Hemoglobin 32.3 pg (27.0-31.0); Mean Platelet Volume 8.1 fL (7.4-10.4); Monocytes 5 % (0-10); Neutrophil 45 % (42-75); Platelet Count 108 thou/uL (130-400); Platelet Morphology Comment Appears Decreased; Poikilocytosis SLIGHT = 6-15 cells (100X) (0-5/hpf); RBC Distribution Width 16.1 % (11.5-14.5); Tear Drops SLIGHT = 2-5 cells (100X) (0-1/hpf); White Blood Cell (WBC) Count 2.6 thou/uL (4.8-10.8)
[2021-02-08] MEDS ORDERED: levETIRAcetam in NS 2,000 MG in Premix Bag 1 BAG IVPB SCH (09:00)
[2021-02-08] MEDS ORDERED: levETIRAcetam 2,000 MG in Sodium Chloride 0.9% 100 ML IVPB SCH (09:30)
[2021-02-08 11:45] LABS: Troponin I 0.276 ng/mL (< 0.028)
[2021-02-08] MEDS ORDERED: DC Sedation Protocol FS ONE (11:50)
[2021-02-08 15:00] LABS: Troponin I 0.206 ng/mL (< 0.028)
[2021-02-08] MEDS: Fosphenytoin Sodium 200 MG in Sodium Chloride 0.9% 50 ML IVPB SCH ×2 (16:33→21:16)
[2021-02-08 19:54] LABS: Acetaminophen Less than 6.0 mcg/mL (10.0-30.0); Alcohol Less than 10 mg/dL (Less than 10); Salicylate Less than 8.0 mg/dL (15.0-30.0)
[2021-02-08] MEDS: levETIRAcetam in NS 1,000 MG in Premix Bag 1 BAG IVPB SCH (20:59)
[2021-02-09] MEDS: Dextrose 50% Abboject 50 ML SYRINGE SLOW IVP PRN ×2 (00:25→08:18)
[2021-02-09 04:04] LABS: ALT (SGPT) 17 U/L (8-55); AST (SGOT) 25 U/L (5-34); Albumin 3.3 g/dL (3.5-5.0); Alkaline Phosphatase 66 U/L (40-110); Anion Gap 19 mmol/L (10-20); BUN (Urea Nitrogen) 36 mg/dL (8.9-20.6); Bilirubin, Total 0.4 mg/dL (0.2-1.2); Calc. Creatinine Clearance 11 mL/min (70-130); Calcium 8.2 mg/dL (7.8-10.44); Carbon Dioxide 22 mmol/L (22-29); Chloride 101 mmol/L (98-107); Globulin 2.7 g/dL (2.4-3.5); Glucose 108 mg/dL (70-105); Magnesium 2.3 mg/dL (1.6-2.6); Phosphorus 6.5 mg/dL (2.3-4.7); Potassium 5.7 mmol/L (3.5-5.1); Sodium 136 mmol/L (136-145)
[2021-02-09 06:43] LABS: #Eosinphils 0.1 thou/uL (0.0-0.7); #Lymphocytes 1.3 thou/uL (1.20-3.40); #Monocytes 0.6 thou/uL (0.11-0.59); #Neutrophils 2.1 thou/uL (1.40-6.50); %Basophils 0.5 % (0.0-1.0); %Eosinophils 3.3 % (0.0-10.0); %Monocytes 14.6 % (0.0-10.0); %Neutrophils 49.6 % (42.0-75.0); Hemoglobin 10.3 g/dL (14.0-18.0); Mean Corpuscular HGB CONC 32.8 g/dL (32.0-36.0); Mean Corpuscular Hemoglobin 31.6 pg (27.0-31.0); Mean Corpuscular Volume 96.4 fL (78.0-98.0); Mean Platelet Volume 7.5 fL (7.4-10.4); Platelet Count 139 thou/uL (130-400); RBC Distribution Width 15.7 % (11.5-14.5); Red Blood Cell (RBC) Count 3.27 mill/uL (4.70-6.10); White Blood Cell (WBC) Count 4.1 thou/uL (4.8-10.8)
[2021-02-09] MEDS: Carvedilol 3.125 MG TAB PER TUBE SCH ×2 (09:17→21:59)
[2021-02-09] MEDS: Minoxidil 2.5 MG TAB PER TUBE SCH (09:17)
[2021-02-09] MEDS: hydrALAZINE 25 MG TAB PER TUBE SCH ×3 (09:17→22:00)
[2021-02-09] MEDS: levETIRAcetam in NS 1,000 MG in Premix Bag 1 BAG IVPB SCH (09:17)
[2021-02-09] MEDS: Atorvastatin Calcium 40 MG TAB PER TUBE SCH (09:17)
[2021-02-09] MEDS: Lisinopril 20 MG TAB PER TUBE SCH (09:18)
[2021-02-09] MEDS: Cholecalciferol 1,000 UNITS (25 MCG) TAB PER TUBE SCH (09:18)
[2021-02-09] MEDS: Sevelamer Carbonate 800 MG TAB PER TUBE SCH ×3 (09:18→17:25)
[2021-02-09] MEDS: Aspirin 81 mg Enteric Coated Tablet PER TUBE SCH (09:18)
[2021-02-09] MEDS: Pantoprazole 40 MG VIAL IVP SCH (09:19)
[2021-02-09] MEDS: Heparin 5,000 UNITS/ML VIAL SC SCH ×3 (09:20→22:01)
[2021-02-09] MEDS: Gabapentin 100 MG CAP PO SCH ×3 (10:15→22:01)
[2021-02-09] MEDS ORDERED: Epoetin (ESRD) 20,000 UNITS/ML SC SCH (10:15)
[2021-02-09] MEDS: Fosphenytoin Sodium 200 MG in Sodium Chloride 0.9% 50 ML IVPB SCH ×2 (11:21→15:36)
[2021-02-09] MEDS ORDERED: EPOETIN ALFA-EPBX (ESRD) 4,000 UNIT/ML VIAL SC SCH (12:00)
[2021-02-09 12:10] VITALS: BMI 24.4
[2021-02-09] MEDS: Dextrose 10% in Water 1,000 ML IV SCH (17:25)
[2021-02-09] MEDS ORDERED: Vancomycin HCl 25 MG/ML Oral PO SCH (18:15)
[2021-02-09] MEDS ORDERED: Vancomycin 1 GM in Premix Bag 1 BAG IVPB SCH (21:00)
[2021-02-09] MEDS: levETIRAcetam 500 MG TAB PO SCH (21:59)
[2021-02-09] MEDS: Famotidine 20 MG TAB PO SCH (22:01)
[2021-02-10] MEDS: Vancomycin HCl 25 MG/ML Oral PO SCH ×4 (00:26→17:16)
[2021-02-10 05:09] LABS: #Eosinphils 0.1 thou/uL (0.0-0.7); #Lymphocytes 1.4 thou/uL (1.20-3.40); #Monocytes 0.6 thou/uL (0.11-0.59); #Neutrophils 1.8 thou/uL (1.40-6.50); %Basophils 1.1 % (0.0-1.0); %Eosinophils 3.5 % (0.0-10.0); %Lymphocytes 34.7 % (21.0-51.0); %Monocytes 14.6 % (0.0-10.0); %Neutrophils 46.1 % (42.0-75.0); Mean Corpuscular HGB CONC 31.9 g/dL (32.0-36.0); Mean Corpuscular Hemoglobin 30.7 pg (27.0-31.0); Mean Corpuscular Volume 96.2 fL (78.0-98.0); Mean Platelet Volume 7.5 fL (7.4-10.4); Platelet Count 155 thou/uL (130-400); RBC Distribution Width 15.2 % (11.5-14.5); Red Blood Cell (RBC) Count 3.59 mill/uL (4.70-6.10); White Blood Cell (WBC) Count 3.9 thou/uL (4.8-10.8)
[2021-02-10 05:29] LABS: Phosphorus 5.2 mg/dL (2.3-4.7)
[2021-02-10 05:37] LABS: ALT (SGPT) 17 U/L (8-55); AST (SGOT) 29 U/L (5-34); Albumin 3.5 g/dL (3.5-5.0); Alkaline Phosphatase 71 U/L (40-110); Anion Gap 15 mmol/L (10-20); BUN (Urea Nitrogen) 12 mg/dL (8.9-20.6); Bilirubin, Total 0.3 mg/dL (0.2-1.2); Calc. Creatinine Clearance 16 mL/min (70-130); Calcium 8.5 mg/dL (7.8-10.44); Carbon Dioxide 28 mmol/L (22-29); Chloride 97 mmol/L (98-107); Globulin 2.8 g/dL (2.4-3.5); Glucose 72 mg/dL (70-105); Magnesium 1.9 mg/dL (1.6-2.6); Potassium 4.6 mmol/L (3.5-5.1); Protein, Total 6.3 g/dL (6.0-8.3); Sodium 135 mmol/L (136-145)
[2021-02-10] MEDS: Dextrose 10% in Water 1,000 ML IV SCH (07:19)
[2021-02-10] MEDS: levETIRAcetam 500 MG TAB PO SCH ×2 (08:25→20:32)
[2021-02-10] MEDS: Aspirin 81 mg Enteric Coated Tablet PO SCH (08:25)
[2021-02-10] MEDS: hydrALAZINE 25 MG TAB PER TUBE SCH ×3 (08:26→20:30)
[2021-02-10] MEDS: Atorvastatin Calcium 40 MG TAB PO SCH (08:26)
[2021-02-10] MEDS: Gabapentin 100 MG CAP PO SCH ×3 (08:27→20:42)
[2021-02-10] MEDS: Lisinopril 20 MG TAB PO SCH (08:27)
[2021-02-10] MEDS: Sevelamer Carbonate 800 MG TAB PO SCH ×3 (08:27→17:16)
[2021-02-10] MEDS: Cholecalciferol 1,000 UNITS (25 MCG) TAB PER TUBE SCH (08:27)
[2021-02-10] MEDS: Minoxidil 2.5 MG TAB PO SCH (08:27)
[2021-02-10] MEDS: Heparin 5,000 UNITS/ML VIAL SC SCH ×3 (08:27→20:34)
[2021-02-10] MEDS ORDERED: Carvedilol 3.125 MG TAB PO SCH ×2 (09:00→11:00)
[2021-02-10] MEDS ORDERED: Labetalol HCl 100 MG/20 ML VIAL SLOW IVP PRN (10:57)
[2021-02-10] MEDS: Carvedilol 6.25 MG TAB PO SCH (17:18)
[2021-02-10] MEDS: Famotidine 20 MG TAB PO SCH (20:31)
[2021-02-10] MEDS: traMADol HCl 50 MG TAB PO SCH (20:34)
[2021-02-11] MEDS: Vancomycin HCl 25 MG/ML Oral PO SCH ×3 (00:01→11:40)
[2021-02-11 05:16] LABS: Mean Corpuscular HGB CONC 33.2 g/dL (32.0-36.0); Mean Corpuscular Volume 96.4 fL (78.0-98.0); Mean Platelet Volume 7.7 fL (7.4-10.4); Platelet Count 162 thou/uL (130-400); RBC Distribution Width 15.1 % (11.5-14.5); Red Blood Cell (RBC) Count 3.44 mill/uL (4.70-6.10); White Blood Cell (WBC) Count 3.9 thou/uL (4.8-10.8)
[2021-02-11 05:37] LABS: ALT (SGPT) 14 U/L (8-55); AST (SGOT) 21 U/L (5-34); Albumin 3.5 g/dL (3.5-5.0); Alkaline Phosphatase 74 U/L (40-110); Anion Gap 15 mmol/L (10-20); BUN (Urea Nitrogen) 20 mg/dL (8.9-20.6); Bilirubin, Total 0.3 mg/dL (0.2-1.2); Calc. Creatinine Clearance 12 mL/min (70-130); Calcium 8.7 mg/dL (7.8-10.44); Carbon Dioxide 27 mmol/L (22-29); Chloride 98 mmol/L (98-107); Globulin 2.8 g/dL (2.4-3.5); Glucose 106 mg/dL (70-105); Magnesium 2.3 mg/dL (1.6-2.6); Phosphorus 5.9 mg/dL (2.3-4.7); Potassium 5.4 mmol/L (3.5-5.1); Protein, Total 6.3 g/dL (6.0-8.3); Sodium 135 mmol/L (136-145)
[2021-02-11 05:39] LABS: Band 2 % (5-11); Eosinophils 3 % (0-10); Lymphocytes 38 % (21-51); MDiff Complete? YES; Monocytes 19 % (0-10); Neutrophil 36 % (42-75); Platelet Morphology Comment Appears Adequate; Reactive Lymphocytes 1 % (0-10)
[2021-02-11] MEDS: Heparin 5,000 UNITS/ML VIAL SC SCH ×2 (08:33→15:35)
[2021-02-11] MEDS: Gabapentin 100 MG CAP PO SCH ×2 (08:34→15:35)
[2021-02-11] MEDS: Atorvastatin Calcium 40 MG TAB PO SCH (08:34)
[2021-02-11] MEDS: Sevelamer Carbonate 800 MG TAB PO SCH ×2 (08:34→11:40)
[2021-02-11] MEDS: traMADol HCl 50 MG TAB PO SCH (08:34)
[2021-02-11] MEDS: Minoxidil 2.5 MG TAB PO SCH (08:34)
[2021-02-11] MEDS: levETIRAcetam 500 MG TAB PO SCH (08:34)
[2021-02-11] MEDS: Lisinopril 20 MG TAB PO SCH (08:35)
[2021-02-11] MEDS: Cholecalciferol 1,000 UNITS (25 MCG) TAB PER TUBE SCH (08:35)
[2021-02-11] MEDS: hydrALAZINE 25 MG TAB PER TUBE SCH (08:35)
[2021-02-11] MEDS: Aspirin 81 mg Enteric Coated Tablet PO SCH (08:36)
[2021-02-11] MEDS: Carvedilol 6.25 MG TAB PO SCH (08:36)
[2021-02-11] MEDS ORDERED: Diclofenac 1% 100 GM GEL TP SCH (13:00)
[2021-02-11] MEDS ORDERED: hydrALAZINE 25 MG TAB PO SCH (15:00)
[2021-02-11 15:47] VITALS: BP 179/89; TEMP 98.1
== END 2021-02-11 16:50 | disposition home or self-care (01) | DRG 100 ==
LOC: ERS 16:13 → CCU 17:35 → IMCU/EMU 02-08 18:51 → 2NO 02-09 17:14
PROVIDERS: ADMIT Family Medicine; ATTEND Family Medicine
PROC: 0BH17EZ Insertion of Endotracheal Airway into Trachea, Via Natural or Artificial Opening (ICD-10-PCS; principal; 2021-02-07)
PROC: 5A1945Z Respiratory Ventilation, 24-96 Consecutive Hours (ICD-10-PCS; 2021-02-07)
DX: G40.401 Other generalized epilepsy and epileptic syndromes, not intractable, with status epilepticus (principal); G93.41 Metabolic encephalopathy; N18.6 End stage renal disease; J96.00 Acute respiratory failure, unspecified whether with hypoxia or hypercapnia; I13.2 Hypertensive heart and chronic kidney disease with heart failure and with stage 5 chronic kidney disease, or end stage renal disease; A04.72 Enterocolitis due to Clostridium difficile, not specified as recurrent; E87.2 Acidosis; E87.5 Hyperkalemia; E11.22 Type 2 diabetes mellitus with diabetic chronic kidney disease; R41.82 Altered mental status, unspecified; R47.81 Slurred speech; E87.8 Other disorders of electrolyte and fluid balance, not elsewhere classified; E11.649 Type 2 diabetes mellitus with hypoglycemia without coma; D69.6 Thrombocytopenia, unspecified; I50.9 Heart failure, unspecified; F41.9 Anxiety disorder, unspecified; R79.89 Other specified abnormal findings of blood chemistry; E83.39 Other disorders of phosphorus metabolism; D63.8 Anemia in other chronic diseases classified elsewhere; Z20.822 Contact with and (suspected) exposure to COVID-19; Z99.2 Dependence on renal dialysis; Z88.0 Allergy status to penicillin; Z79.82 Long term (current) use of aspirin; Z79.899 Other long term (current) drug therapy; Z89.421 Acquired absence of other right toe(s); Z87.891 Personal history of nicotine dependence; Z91.15 Patient's noncompliance with renal dialysis
CPT/HCPCS: 31500; 36415; 36416; 36600; 70450; 70496; 70498; 70551; 71045; 80048; 80053; 80076; 80143; 80177; 80179; 80185; 80307; 82140; 82805; 83735; 84100; 84145; 84484; 84550; 85025; 85060; 85652; 86140; 86780; 87040; 87324; 87389; 87449; 87493; 90935; 93005; 94002; 94003; 94644; 95712; 95819; 95957; 96365; 96372; 96375; 96376; C9113; G0257; J1200; J1610; J1630; J1644; J1815; J1953; J2001; J2060; J2704; J3010; J3490; J7611; J7620; Q2009; Q5105; Q9967; U0002; U0005

== ENCOUNTER 2021-03-04 21:53 | Inpatient (IN) | payer MEDICARE ==
[2021-03-04] MEDS ORDERED: niCARdipine 20MG In NaCl 20 MG/200 ML BAG ONE (22:06)
[2021-03-04] MEDS ORDERED: Sodium Bicarb 50 MEQ/50 ML Abboject 8.4% SYRINGE ONE (22:24)
[2021-03-04] MEDS ORDERED: Calcium Chloride 1 GM/10 ML Abboject SYRINGE ONE (22:24)
[2021-03-04 23:09] LABS: ALT (SGPT) 9 U/L (8-55); AST (SGOT) 15 U/L (5-34); Albumin 3.7 g/dL (3.5-5.0); Alkaline Phosphatase 61 U/L (40-110); Bilirubin, Total 0.9 mg/dL (0.2-1.2); Calc. Creatinine Clearance 0 mL/min (70-130); Calcium 9.6 mg/dL (7.8-10.44); Chloride 102 mmol/L (98-107); Globulin 3.5 g/dL (2.4-3.5); Glucose 116 mg/dL (70-105); Protein, Total 7.2 g/dL (6.0-8.3); Sodium 133 mmol/L (136-145)
[2021-03-04 23:11] LABS: SARS-CoV-2 NAA Rapid Test Not Detected (NotDetected)
[2021-03-04 23:15] LABS: BUN (Urea Nitrogen) Greater than 125 mg/dL (8.9-20.6); Carbon Dioxide Less than 8 mmol/L (22-29); Potassium 7.9 mmol/L (3.5-5.1)
[2021-03-04] MEDS ORDERED: Ondansetron ODT 4 MG TAB PO PRN (23:19)
[2021-03-04] MEDS ORDERED: Acetaminophen 650 MG Suppository PR PRN (23:19)
[2021-03-04] MEDS ORDERED: Ondansetron PF 4 MG/2 ML Vial IVP PRN (23:19)
[2021-03-04 23:29] LABS: #Lymphocytes 0.5 thou/uL (1.20-3.40); #Monocytes 0.4 thou/uL (0.11-0.59); %Basophils 0.1 % (0.0-1.0); %Lymphocytes 6.6 % (21.0-51.0); %Neutrophils 88.2 % (42.0-75.0); Hemoglobin 10.5 g/dL (14.0-18.0); Mean Corpuscular HGB CONC 32.8 g/dL (32.0-36.0); Mean Corpuscular Hemoglobin 32.3 pg (27.0-31.0); Mean Corpuscular Volume 98.6 fL (78.0-98.0); Mean Platelet Volume 8.1 fL (7.4-10.4); Platelet Count 117 thou/uL (130-400); Platelet Morphology Comment Appears Decreased; RBC Distribution Width 15.8 % (11.5-14.5); Red Blood Cell (RBC) Count 3.25 mill/uL (4.70-6.10)
[2021-03-04] MEDS ORDERED: levETIRAcetam 500 MG TAB PO SCH (23:45)
[2021-03-05 00:24] LABS: CKMB 4.1 ng/mL (0-6.6)
[2021-03-05] MEDS ORDERED: Cefepime 1 GM in Sodium Chloride 0.9% 100 ML IVPB SCH ×2 (00:30→06:00)
[2021-03-05 00:40] LABS: Phosphorus 12.2 mg/dL (2.3-4.7)
[2021-03-05 00:46] LABS: Dilantin Less than 1.8 ug/mL (10.0-20.0)
[2021-03-05] MEDS ORDERED: Vancomycin HCl 500 MG in Sodium Chloride 0.9% 100 ML IVPB SCH (01:00)
[2021-03-05] MEDS ORDERED: Vancomycin 1 GM in Premix Bag 1 BAG IVPB SCH (01:00)
[2021-03-05] MEDS ORDERED: Vancomycin HCl 1.25 GM in Sodium Chloride 0.9% 250 ML 250 ML IVPB SCH (01:00)
[2021-03-05] MEDS ORDERED: Vancomycin HCl 750 MG in Sodium Chloride 0.9% 250 ML 250 ML IVPB SCH (01:00)
[2021-03-05] MEDS ORDERED: HOLD VANCOMYCIN FOR LEVEL >20 FS SCH (01:00)
[2021-03-05 01:27] VITALS: BMI 27.3
[2021-03-05] MEDS ORDERED: Vancomycin 1.5 GRAM/300 ML BAG 1.5 GM in Premix Bag 1 BAG IVPB SCH ×2 (02:00→07:00)
[2021-03-05] MEDS: niCARdipine 25 MG in Sodium Chloride 0.9% 250 ML 240 ML IVPB SCH ×2 (03:06→08:05)
[2021-03-05 04:15] LABS: CKMB 3.7 ng/mL (0-6.6)
[2021-03-05 04:57] LABS: Vancomycin, Random Less than 1.1 ug/mL (See Comment)
[2021-03-05 05:04] LABS: Mean Corpuscular HGB CONC 33.7 g/dL (32.0-36.0); Mean Corpuscular Hemoglobin 32.3 pg (27.0-31.0); Mean Corpuscular Volume 95.7 fL (78.0-98.0); Mean Platelet Volume 7.4 fL (7.4-10.4); Platelet Count 128 thou/uL (130-400); RBC Distribution Width 15.9 % (11.5-14.5); White Blood Cell (WBC) Count 8.1 thou/uL (4.8-10.8)
[2021-03-05 05:24] LABS: Magnesium 2.4 mg/dL (1.6-2.6); Phosphorus 6.2 mg/dL (2.3-4.7)
[2021-03-05 05:36] LABS: Band 12 % (5-11); Lymphocytes 4 % (21-51); MDiff Complete? YES; Monocytes 2 % (0-10); Neutrophil 82 % (42-75)
[2021-03-05] MEDS: Acetaminophen 325 MG TAB PO PRN ×2 (06:39→12:16)
[2021-03-05] MEDS: Minoxidil 2.5 MG TAB PO SCH (08:15)
[2021-03-05] MEDS: Lisinopril 20 MG TAB PO SCH (08:16)
[2021-03-05] MEDS: Carvedilol 6.25 MG TAB PO SCH ×2 (08:16→17:33)
[2021-03-05] MEDS: hydrALAZINE 25 MG TAB PO SCH ×3 (08:17→20:19)
[2021-03-05] MEDS: Heparin 5,000 UNITS/ML VIAL SC SCH ×3 (08:17→20:20)
[2021-03-05] MEDS ORDERED: levETIRAcetam 500 MG TAB PO SCH (09:00)
[2021-03-05] MEDS ORDERED: Ibuprofen 200 MG TAB PO PRN (09:29)
[2021-03-05 10:15] LABS: Anion Gap 21 mmol/L (10-20); BUN (Urea Nitrogen) 44 mg/dL (8.9-20.6); Calc. Creatinine Clearance 10 mL/min (70-130); Calcium 9.1 mg/dL (7.8-10.44); Carbon Dioxide 21 mmol/L (22-29); Chloride 101 mmol/L (98-107); Glucose 109 mg/dL (70-105); Sodium 139 mmol/L (136-145)
[2021-03-05] MEDS: Cefepime 0.5 GM, Admixture Fee 1 EACH in Sodium Chloride 0.9% 100 ML IVPB SCH (17:33)
[2021-03-05] MEDS: levETIRAcetam 500 MG TAB PO SCH (17:33)
[2021-03-06] MEDS: Acetaminophen 325 MG TAB PO PRN ×3 (00:26→17:05)
[2021-03-06 06:58] LABS: Hemoglobin 9.8 g/dL (14.0-18.0); Mean Corpuscular HGB CONC 33.2 g/dL (32.0-36.0); Mean Corpuscular Hemoglobin 32.5 pg (27.0-31.0); Mean Corpuscular Volume 97.9 fL (78.0-98.0); Mean Platelet Volume 7.6 fL (7.4-10.4); Platelet Count 122 thou/uL (130-400); RBC Distribution Width 16.1 % (11.5-14.5); Red Blood Cell (RBC) Count 3.03 mill/uL (4.70-6.10); White Blood Cell (WBC) Count 9.1 thou/uL (4.8-10.8)
[2021-03-06 07:19] LABS: Vancomycin, Random 23.8 ug/mL (See Comment)
[2021-03-06 07:43] LABS: Band 28 % (5-11); Lymphocytes 6 % (21-51); MDiff Complete? YES; Monocytes 4 % (0-10); Neutrophil 62 % (42-75); Nucleated RBC 1 % (0); Platelet Morphology Comment Appears Decreased; Polychromasia SLIGHT = 2-3 cells (100X) (0-2/hpf)
[2021-03-06] MEDS: Lisinopril 20 MG TAB PO SCH (08:20)
[2021-03-06] MEDS: levETIRAcetam 500 MG TAB PO SCH (08:21)
[2021-03-06] MEDS: Minoxidil 2.5 MG TAB PO SCH (08:23)
[2021-03-06] MEDS: hydrALAZINE 25 MG TAB PO SCH ×3 (08:23→19:56)
[2021-03-06] MEDS: Carvedilol 6.25 MG TAB PO SCH ×2 (08:25→18:23)
[2021-03-06] MEDS: Heparin 5,000 UNITS/ML VIAL SC SCH ×3 (08:26→19:57)
[2021-03-06] MEDS ORDERED: Epoetin (ESRD) 20,000 UNITS/ML SC SCH (08:45)
[2021-03-06] MEDS ORDERED: EPOETIN ALFA-EPBX (ESRD) 4,000 UNIT/ML VIAL SC SCH (09:15)
[2021-03-06] MEDS: Vancomycin HCl 25 MG/ML Oral PO SCH ×3 (09:57→19:57)
[2021-03-06 10:31] LABS: Anion Gap 23 mmol/L (10-20); BUN (Urea Nitrogen) 60 mg/dL (8.9-20.6); Calc. Creatinine Clearance 8 mL/min (70-130); Calcium 9.5 mg/dL (7.8-10.44); Carbon Dioxide 21 mmol/L (22-29); Chloride 99 mmol/L (98-107); Glucose 86 mg/dL (70-105); Sodium 138 mmol/L (136-145)
[2021-03-06] MEDS: Cefepime 0.5 GM, Admixture Fee 1 EACH in Sodium Chloride 0.9% 100 ML IVPB SCH (18:23)
[2021-03-07] MEDS: Vancomycin HCl 25 MG/ML Oral PO SCH ×4 (03:18→20:49)
[2021-03-07 03:51] LABS: Anion Gap 17 mmol/L (10-20); BUN (Urea Nitrogen) 31 mg/dL (8.9-20.6); Calc. Creatinine Clearance 15 mL/min (70-130); Calcium 9.2 mg/dL (7.8-10.44); Carbon Dioxide 25 mmol/L (22-29); Chloride 97 mmol/L (98-107); Glucose 79 mg/dL (70-105); Potassium 4.3 mmol/L (3.5-5.1); Sodium 135 mmol/L (136-145)
[2021-03-07 03:54] LABS: Vancomycin, Random 14.4 ug/mL (See Comment)
[2021-03-07 04:39] LABS: Band 30 % (5-11); Hemoglobin 10.5 g/dL (14.0-18.0); Lymphocytes 7 % (21-51); MDiff Complete? YES; Mean Corpuscular HGB CONC 32.4 g/dL (32.0-36.0); Mean Corpuscular Volume 98.9 fL (78.0-98.0); Mean Platelet Volume 7.3 fL (7.4-10.4); Monocytes 2 % (0-10); Neutrophil 61 % (42-75); Platelet Count 139 thou/uL (130-400); Red Blood Cell (RBC) Count 3.28 mill/uL (4.70-6.10); White Blood Cell (WBC) Count 7.7 thou/uL (4.8-10.8)
[2021-03-07] MEDS: hydrALAZINE 25 MG TAB PO SCH ×3 (08:23→20:49)
[2021-03-07] MEDS: Minoxidil 2.5 MG TAB PO SCH (08:25)
[2021-03-07] MEDS: Carvedilol 6.25 MG TAB PO SCH ×2 (08:25→17:47)
[2021-03-07] MEDS: levETIRAcetam 500 MG TAB PO SCH ×2 (08:26→17:47)
[2021-03-07] MEDS: Heparin 5,000 UNITS/ML VIAL SC SCH ×3 (08:27→20:49)
[2021-03-07] MEDS: Lisinopril 20 MG TAB PO SCH (08:33)
[2021-03-07] MEDS: Sevelamer Carbonate 800 MG TAB PO SCH ×2 (12:11→17:48)
[2021-03-07] MEDS: Cefepime 0.5 GM, Admixture Fee 1 EACH in Sodium Chloride 0.9% 100 ML IVPB SCH (17:48)
[2021-03-08 04:18] LABS: Anion Gap 18 mmol/L (10-20); BUN (Urea Nitrogen) 22 mg/dL (8.9-20.6); Calc. Creatinine Clearance 22 mL/min (70-130); Calcium 9.2 mg/dL (7.8-10.44); Carbon Dioxide 24 mmol/L (22-29); Chloride 97 mmol/L (98-107); Glucose 92 mg/dL (70-105); Potassium 3.9 mmol/L (3.5-5.1); Sodium 135 mmol/L (136-145)
[2021-03-08 04:39] LABS: Hemoglobin 11.2 g/dL (14.0-18.0); Mean Corpuscular HGB CONC 32.8 g/dL (32.0-36.0); Mean Corpuscular Hemoglobin 32.3 pg (27.0-31.0); Mean Corpuscular Volume 98.4 fL (78.0-98.0); Mean Platelet Volume 7.4 fL (7.4-10.4); Platelet Count 148 thou/uL (130-400); Red Blood Cell (RBC) Count 3.48 mill/uL (4.70-6.10); White Blood Cell (WBC) Count 5.5 thou/uL (4.8-10.8)
[2021-03-08 05:23] LABS: Band 23 % (5-11); Eosinophils 3 % (0-10); Lymphocytes 8 % (21-51); MDiff Complete? YES; Monocytes 4 % (0-10); Neutrophil 61 % (42-75)
[2021-03-08] MEDS: Vancomycin HCl 25 MG/ML Oral PO SCH ×4 (05:49→20:12)
[2021-03-08] MEDS: Minoxidil 2.5 MG TAB PO SCH (07:56)
[2021-03-08] MEDS: hydrALAZINE 25 MG TAB PO SCH ×3 (07:57→20:13)
[2021-03-08] MEDS: levETIRAcetam 500 MG TAB PO SCH (07:57)
[2021-03-08] MEDS: Sevelamer Carbonate 800 MG TAB PO SCH ×3 (07:57→17:08)
[2021-03-08] MEDS: Lisinopril 20 MG TAB PO SCH (07:58)
[2021-03-08] MEDS: Carvedilol 6.25 MG TAB PO SCH ×2 (07:58→17:09)
[2021-03-08] MEDS: Heparin 5,000 UNITS/ML VIAL SC SCH ×3 (07:58→20:12)
[2021-03-08] MEDS: Cefepime 0.5 GM, Admixture Fee 1 EACH in Sodium Chloride 0.9% 100 ML IVPB SCH (17:08)
[2021-03-09] MEDS: Vancomycin HCl 25 MG/ML Oral PO SCH ×4 (03:53→20:08)
[2021-03-09 06:07] LABS: #Eosinphils 0.2 thou/uL (0.0-0.7); #Lymphocytes 0.6 thou/uL (1.20-3.40); #Monocytes 0.5 thou/uL (0.11-0.59); #Neutrophils 2.3 thou/uL (1.40-6.50); %Basophils 1.1 % (0.0-1.0); %Lymphocytes 15.5 % (21.0-51.0); %Monocytes 12.7 % (0.0-10.0); %Neutrophils 65.7 % (42.0-75.0); Hemoglobin 11.8 g/dL (14.0-18.0); Mean Corpuscular HGB CONC 32.6 g/dL (32.0-36.0); Mean Corpuscular Hemoglobin 31.8 pg (27.0-31.0); Mean Corpuscular Volume 97.7 fL (78.0-98.0); Mean Platelet Volume 7.6 fL (7.4-10.4); Platelet Count 154 thou/uL (130-400); RBC Distribution Width 16.1 % (11.5-14.5); Red Blood Cell (RBC) Count 3.72 mill/uL (4.70-6.10); White Blood Cell (WBC) Count 3.5 thou/uL (4.8-10.8)
[2021-03-09 06:29] LABS: Anion Gap 17 mmol/L (10-20); BUN (Urea Nitrogen) 39 mg/dL (8.9-20.6); Calc. Creatinine Clearance 14 mL/min (70-130); Calcium 9.4 mg/dL (7.8-10.44); Carbon Dioxide 26 mmol/L (22-29); Chloride 95 mmol/L (98-107); Glucose 154 mg/dL (70-105); Potassium 4.6 mmol/L (3.5-5.1); Sodium 133 mmol/L (136-145)
[2021-03-09] MEDS: Sevelamer Carbonate 800 MG TAB PO SCH ×3 (07:53→18:18)
[2021-03-09 08:33] LABS: Vancomycin, Random 12.8 ug/mL (See Comment)
[2021-03-09] MEDS: hydrALAZINE 25 MG TAB PO SCH ×4 (09:00→20:09)
[2021-03-09] MEDS: Heparin 5,000 UNITS/ML VIAL SC SCH ×3 (09:00→20:08)
[2021-03-09] MEDS ORDERED: Cefdinir 300 MG CAP PO SCH (11:00)
[2021-03-09] MEDS ORDERED: Azithromycin 250 MG TAB PO SCH (11:00)
[2021-03-09] MEDS: levETIRAcetam 500 MG TAB PO SCH ×2 (12:58→18:21)
[2021-03-09] MEDS: Carvedilol 6.25 MG TAB PO SCH ×2 (12:58→18:19)
[2021-03-09] MEDS: Lisinopril 20 MG TAB PO SCH (12:59)
[2021-03-09] MEDS: Minoxidil 2.5 MG TAB PO SCH (15:38)
[2021-03-10] MEDS: Vancomycin HCl 25 MG/ML Oral PO SCH ×2 (01:51→08:32)
[2021-03-10 06:21] LABS: Hemoglobin 11.3 g/dL (14.0-18.0); Mean Corpuscular HGB CONC 33.1 g/dL (32.0-36.0); Mean Corpuscular Volume 96.8 fL (78.0-98.0); Mean Platelet Volume 7.4 fL (7.4-10.4); Platelet Count 196 thou/uL (130-400); RBC Distribution Width 16.3 % (11.5-14.5); Red Blood Cell (RBC) Count 3.51 mill/uL (4.70-6.10)
[2021-03-10 06:52] LABS: Band 4 % (5-11); Hypochromia SLIGHT = 6-15 cells (100X) (0-5/hpf); Lymphocytes 42 % (21-51); MDiff Complete? YES; Neutrophil 54 % (42-75); Platelet Morphology Comment Appears Adequate
[2021-03-10] MEDS: Minoxidil 2.5 MG TAB PO SCH (08:30)
[2021-03-10] MEDS: hydrALAZINE 25 MG TAB PO SCH (08:31)
[2021-03-10] MEDS: levETIRAcetam 500 MG TAB PO SCH (08:31)
[2021-03-10] MEDS: Lisinopril 20 MG TAB PO SCH (08:31)
[2021-03-10] MEDS: Carvedilol 6.25 MG TAB PO SCH (08:32)
[2021-03-10] MEDS: Sevelamer Carbonate 800 MG TAB PO SCH ×2 (08:32→12:10)
[2021-03-10] MEDS: Heparin 5,000 UNITS/ML VIAL SC SCH (08:37)
[2021-03-10] MEDS ORDERED: Azithromycin 250 MG TAB PO SCH (09:00)
[2021-03-10 11:52] VITALS: BP 163/95; TEMP 97.5
[2021-03-10 17:06] LABS: Chloride 105 mmol/L (98-107); Potassium 5.2 mmol/L (3.5-5.1); Sodium 138 mmol/L (136-145)
[2021-03-10 17:07] LABS: Calcium 9.3 mg/dL (7.8-10.44)
[2021-03-10 17:08] LABS: Glucose 98 mg/dL (70-105)
[2021-03-10 17:11] LABS: Calc. Creatinine Clearance 17 mL/min (70-130)
[2021-03-10 17:12] LABS: BUN (Urea Nitrogen) 25 mg/dL (8.9-20.6)
[2021-03-12] MEDS ORDERED: Cefdinir 300 MG CAP PO SCH (09:00)
== END 2021-03-10 12:45 | disposition home or self-care (01) | DRG 208 ==
LOC: ERS 21:53 → CCU 22:34 → T4-A 03-08 13:03
PROVIDERS: ADMIT Family Medicine; ATTEND Family Medicine
PROC: 5A1D70Z Performance of Urinary Filtration, Intermittent, Less than 6 Hours Per Day (ICD-10-PCS; principal; 2021-03-04)
PROC: 5A1935Z Respiratory Ventilation, Less than 24 Consecutive Hours (ICD-10-PCS; 2021-03-05)
DX: J96.02 Acute respiratory failure with hypercapnia (principal); J18.1 Lobar pneumonia, unspecified organism; N18.6 End stage renal disease; I13.2 Hypertensive heart and chronic kidney disease with heart failure and with stage 5 chronic kidney disease, or end stage renal disease; I16.1 Hypertensive emergency; J81.1 Chronic pulmonary edema; E87.2 Acidosis; E87.70 Fluid overload, unspecified; E11.22 Type 2 diabetes mellitus with diabetic chronic kidney disease; E87.5 Hyperkalemia; G40.909 Epilepsy, unspecified, not intractable, without status epilepticus; Z51.5 Encounter for palliative care; M79.2 Neuralgia and neuritis, unspecified; I50.9 Heart failure, unspecified; R10.9 Unspecified abdominal pain; F32.9 Major depressive disorder, single episode, unspecified; R91.8 Other nonspecific abnormal finding of lung field; R94.31 Abnormal electrocardiogram [ECG] [EKG]; R19.7 Diarrhea, unspecified; D63.1 Anemia in chronic kidney disease; B96.89 Other specified bacterial agents as the cause of diseases classified elsewhere; Z20.822 Contact with and (suspected) exposure to COVID-19; F41.9 Anxiety disorder, unspecified; E83.39 Other disorders of phosphorus metabolism; Z86.73 Personal history of transient ischemic attack (TIA), and cerebral infarction without residual deficits; Z87.74 Personal history of (corrected) congenital malformations of heart and circulatory system; Z99.2 Dependence on renal dialysis; Z98.890 Other specified postprocedural states; Z91.15 Patient's noncompliance with renal dialysis; Z86.19 Personal history of other infectious and parasitic diseases; Z88.0 Allergy status to penicillin; Z79.82 Long term (current) use of aspirin; Z79.899 Other long term (current) drug therapy; Z89.421 Acquired absence of other right toe(s); Z87.891 Personal history of nicotine dependence; Z91.14 Patient's other noncompliance with medication regimen
CPT/HCPCS: 36415; 36416; 71045; 80048; 80053; 80177; 80185; 80202; 82553; 83605; 83735; 83880; 84100; 84145; 84484; 85007; 85025; 85027; 87040; 87149; 90935; 93005; 96365; 96375; G0257; J0692; J1644; J3370; J3490; J7050; Q5105; U0002; U0005

== ENCOUNTER 2021-10-31 14:58 | Inpatient (IN) | payer MEDICARE ==
[~2021-10-31 14:58] MED LIST changes: +Iopamidol 370 76% 100 ML VIAL ONE; -Iopamidol-370 76% 500 ML 1 ML ONE
[2021-10-31] MEDS ORDERED: Heparin 10,000 UNITS/ 10 ML VIAL ONE ×2 (15:00→15:53)
[2021-10-31] MEDS ORDERED: PROPOFOL 200 MG/20 ML VIAL ONE (15:00)
[2021-10-31] MEDS ORDERED: Rocuronium Bromide 10 MG/ML (10ML VIAL) ONE (15:00)
[2021-10-31 15:26] LABS: #Lymphocytes 1.2 thou/uL (1.20-3.40); #Monocytes 0.5 thou/uL (0.11-0.59); #Neutrophils 3.2 thou/uL (1.40-6.50); %Basophils 0.7 % (0.0-1.0); %Eosinophils 0.2 % (0.0-10.0); %Lymphocytes 23.6 % (21.0-51.0); %Neutrophils 65.5 % (42.0-75.0); Hemoglobin 12.9 g/dL (14.0-18.0); Mean Corpuscular HGB CONC 31.1 g/dL (32.0-36.0); Mean Corpuscular Hemoglobin 33.6 pg (27.0-31.0); Mean Platelet Volume 9.1 fL (7.4-10.4); Platelet Count 127 thou/uL (130-400); RBC Distribution Width 17.7 % (11.5-14.5); Red Blood Cell (RBC) Count 3.86 mill/uL (4.70-6.10); White Blood Cell (WBC) Count 4.9 thou/uL (4.8-10.8)
[2021-10-31] MEDS ORDERED: DOPamine 400 MG/D5W 250 ML 250 ML ONE (15:27)
[2021-10-31] MEDS ORDERED: Ondansetron PF 4 MG/2 ML Vial ONE (15:42)
[2021-10-31 15:45] LABS: Anisocytosis SLIGHT = 6-15 cells (100X) (0-5/hpf); Burr Cells SLIGHT = 2-5 cells (100X) (0-1/hpf); Hypochromia SLIGHT = 6-15 cells (100X) (0-5/hpf); MDiff Complete? YES; Macrocytosis SLIGHT = 6-15 cells (100X) (0-5/hpf); Ovalocytes SLIGHT = 2-5 cells (100X) (0-1/hpf); Platelet Morphology Comment Appears Decreased; Polychromasia SLIGHT = 2-3 cells (100X) (0-2/hpf)
[2021-10-31 15:49] LABS: ALT (SGPT) 86 U/L (8-55); AST (SGOT) 84 U/L (5-34); Albumin 3.4 g/dL (3.5-5.0); Alkaline Phosphatase 62 U/L (40-110); Anion Gap 26 mmol/L (10-20); BUN (Urea Nitrogen) 61 mg/dL (8.9-20.6); Bilirubin, Total 0.9 mg/dL (0.2-1.2); Calc. Creatinine Clearance 0 mL/min (70-130); Calcium 9.3 mg/dL (7.8-10.44); Carbon Dioxide 22 mmol/L (22-29); Chloride 98 mmol/L (98-107); Globulin 2.7 g/dL (2.4-3.5); Glucose 78 mg/dL (70-105); Potassium 4.9 mmol/L (3.5-5.1); Protein, Total 6.1 g/dL (6.0-8.3); Sodium 141 mmol/L (136-145)
[2021-10-31] MEDS ORDERED: Fentanyl 250 MCG/5 ML VIAL ONE (16:28)
[2021-10-31] MEDS ORDERED: PROPOFOL 40 ML ONE (16:57)
[2021-10-31] MEDS ORDERED: Propofol 1,000 MG/100 ML VIAL IV ONE ×2 (17:05→20:46)
[2021-10-31] MEDS ORDERED: Heparin 25,000 units/D5W 500 ML IVPB SCH (17:15)
[2021-10-31 17:54] LABS: Actual Bicarbonate (HCO3a) 20.1 mEq/L (22-28); Base Excess (BEa) -2.4 mEq/L (-2.0 to +3.0); CO2 Tension 28.9 mmHg (35.0-45.0); Calcium, Ionized (arterial) 1.06 mmol/L (1.12-1.30); Carboxyhemoglobin (COHb) 0.8 gm% (0.0-3.0); O2 Tension (PaO2), arterial 172.2 mmHg (80.0-100.0); Potassium - ABG Lab 4.66 mmol/L (3.70-5.30); pH, Arterial 7.46 (7.35-7.45)
[2021-10-31 18:32] LABS: Hemoglobin 13.8 g/dL (14.0-18.0); Platelet Count 151 thou/uL (130-400)
[2021-10-31 18:56] LABS: ALV-art Gradient 504.675 mmHg (0-20); Puncture Site Arterial Line
[2021-10-31 19:04] LABS: PTT Greater than 250.0 sec (22.9-36.1)
[2021-10-31 19:52] VITALS: BMI 31.3
[2021-10-31 20:39] LABS: SARS-CoV-2 NAA Rapid Test Not Detected (NotDetected)
[2021-10-31 20:43] LABS: Critical Call Chem Troponin I RESULT DECREASING; Troponin I 6.264 ng/mL (< 0.028)
[2021-10-31] MEDS ORDERED: DOPamine 400 MG/D5W 250 ML 250 ML IVPB SCH (20:45)
[2021-10-31] MEDS ORDERED: Propofol BOLUS 1,000 MG/100 ML VIAL IV PRN (21:30)
[2021-10-31] MEDS ORDERED: fentaNYL Citrate/PF 2,000 MCG in Sodium Chloride 0.9% 60 ML IV SCH (21:30)
[2021-10-31] MEDS ORDERED: Morphine 4 MG/ML VIAL SLOW IVP PRN (21:30)
[2021-10-31] MEDS ORDERED: Lorazepam 2 MG/ML VIAL SLOW IVP PRN (21:30)
[2021-10-31] MEDS ORDERED: DISCONTINUE PREVIOUS NARCOTIC PAIN MEDICATIONS AND BENZODIAZEPINES FS SCH (21:30)
[2021-10-31] MEDS ORDERED: Fentanyl BOLUS 250 ML IVPB PRN (21:30)
[2021-10-31] MEDS: Sodium Chloride 0.9% 1,000 ML IV SCH (22:00)
[2021-10-31] MEDS ORDERED: Heparin 10,000 UNITS/ 10 ML VIAL SLOW IVP SCH (23:00)
[2021-11-01] MEDS: Propofol 1,000 MG/100 ML VIAL IV PRN ×2 (05:19→08:37)
[2021-11-01 05:34] LABS: #Lymphocytes 1.4 thou/uL (1.20-3.40); #Monocytes 0.2 thou/uL (0.11-0.59); #Neutrophils 3.5 thou/uL (1.40-6.50); %Basophils 0.6 % (0.0-1.0); %Eosinophils 0.5 % (0.0-10.0); %Lymphocytes 26.8 % (21.0-51.0); %Monocytes 4.7 % (0.0-10.0); %Neutrophils 67.3 % (42.0-75.0); Mean Corpuscular HGB CONC 32.4 g/dL (32.0-36.0); Mean Corpuscular Hemoglobin 34.2 pg (27.0-31.0); Mean Platelet Volume 8.7 fL (7.4-10.4); Platelet Count 140 thou/uL (130-400); RBC Distribution Width 17.5 % (11.5-14.5); White Blood Cell (WBC) Count 5.2 thou/uL (4.8-10.8)
[2021-11-01] MEDS: Sodium Chloride 0.9% 1,000 ML IV SCH (05:49)
[2021-11-01 05:52] LABS: ALT (SGPT) 84 U/L (8-55); AST (SGOT) 82 U/L (5-34); Albumin 2.9 g/dL (3.5-5.0); Alkaline Phosphatase 61 U/L (40-110); Anion Gap 25 mmol/L (10-20); BUN (Urea Nitrogen) 69 mg/dL (8.9-20.6); Bilirubin, Total 1.3 mg/dL (0.2-1.2); Calc. Creatinine Clearance 13 mL/min (70-130); Carbon Dioxide 19 mmol/L (22-29); Chloride 99 mmol/L (98-107); Globulin 2.9 g/dL (2.4-3.5); Glucose 128 mg/dL (70-105); Potassium 4.5 mmol/L (3.5-5.1); Protein, Total 5.8 g/dL (6.0-8.3); Sodium 138 mmol/L (136-145)
[2021-11-01 06:54] VITALS: BP 122/78
[2021-11-01 07:50] LABS: Actual Bicarbonate (HCO3a) 16.5 mEq/L (22-28); Base Excess (BEa) -3.3 mEq/L (-2.0 to +3.0); Calcium, Ionized (arterial) 0.99 mmol/L (1.12-1.30); Carboxyhemoglobin (COHb) 0.9 gm% (0.0-3.0); Hemoglobin (Hb) 15.3 g/dL (14.0-18.0); O2 Tension (PaO2), arterial 77.3 mmHg (80.0-100.0); Potassium - ABG Lab 4.49 mmol/L (3.70-5.30); pH, Arterial 7.54 (7.35-7.45)
[2021-11-01 07:59] LABS: CO2 Tension 19.8 mmHg (35.0-45.0)
[2021-11-01 08:00] LABS: Puncture Site Arterial Line
[2021-11-01 08:28] VITALS: TEMP 97.7
[2021-11-01] MEDS ORDERED: Pantoprazole 40 MG VIAL IVP SCH (09:00)
[2021-11-03] MEDS ORDERED: FLU VACC QS2021-22(6MOS UP)/PF 60 MCG/0.5 ML SYRINGE IM ONE (09:00)
[2021-11-03] MEDS ORDERED: Prevnar 13-Val Conj/PF 0.5 ML SYRINGE IM ONE (09:00)
== END 2021-11-01 10:40 | disposition short-term general hospital (02) | DRG 270 ==
LOC: ERS 14:58 → CCU 15:18
PROVIDERS: ADMIT Internal Medicine Cardiovascular Disease; ATTEND Internal Medicine Cardiovascular Disease
PROC: 0BH17EZ Insertion of Endotracheal Airway into Trachea, Via Natural or Artificial Opening (ICD-10-PCS; principal; 2021-10-31)
PROC: 5A02210 Assistance with Cardiac Output using Balloon Pump, Continuous (ICD-10-PCS; 2021-10-31)
PROC: 5A1935Z Respiratory Ventilation, Less than 24 Consecutive Hours (ICD-10-PCS; 2021-10-31)
PROC: 4A023N7 Measurement of Cardiac Sampling and Pressure, Left Heart, Percutaneous Approach (ICD-10-PCS; 2021-10-31)
PROC: B2111ZZ Fluoroscopy of Multiple Coronary Arteries using Low Osmolar Contrast (ICD-10-PCS; 2021-10-31)
PROC: B2151ZZ Fluoroscopy of Left Heart using Low Osmolar Contrast (ICD-10-PCS; 2021-10-31)
DX: I21.3 ST elevation (STEMI) myocardial infarction of unspecified site (principal); N18.6 End stage renal disease; R57.0 Cardiogenic shock; J96.01 Acute respiratory failure with hypoxia; I13.2 Hypertensive heart and chronic kidney disease with heart failure and with stage 5 chronic kidney disease, or end stage renal disease; Z20.822 Contact with and (suspected) exposure to COVID-19; I25.10 Atherosclerotic heart disease of native coronary artery without angina pectoris; E11.22 Type 2 diabetes mellitus with diabetic chronic kidney disease; E78.5 Hyperlipidemia, unspecified; I50.9 Heart failure, unspecified; F41.9 Anxiety disorder, unspecified; E66.9 Obesity, unspecified; F32.A Depression, unspecified; E11.21 Type 2 diabetes mellitus with diabetic nephropathy; G40.909 Epilepsy, unspecified, not intractable, without status epilepticus; D63.1 Anemia in chronic kidney disease; Z99.2 Dependence on renal dialysis; Z89.421 Acquired absence of other right toe(s); Z79.899 Other long term (current) drug therapy; Z86.73 Personal history of transient ischemic attack (TIA), and cerebral infarction without residual deficits; Z87.891 Personal history of nicotine dependence; Z91.15 Patient's noncompliance with renal dialysis; Z68.31 Body mass index [BMI] 31.0-31.9, adult
CPT/HCPCS: 33967; 36415; 71045; 80053; 82553; 82805; 83880; 84484; 85025; 85347; 85730; 93005; 93010; 93458; 94002; 94003; 96374; C1725; C1769; C9113; J1265; J1644; J2405; J2704; J3010; J7050; Q9967; U0002